=== PATIENT | male | born 1950 | race Caucasian/White ===

== ENCOUNTER → 2017-05-07 08:58 | Outpatient (CLI) | payer SELFPAY ==
[2017-05-07 11:15] LABS: Anion Gap 5 (5-15); BUN 15 mg/dL (7-18); BUN/Creat Ratio 10.6 RATIO (10-20); Calcium,Total 8.8 mg/dL (8.5-10.1); Chloride 107 mmol/L (98-107); Cholesterol 200 mg/dL (200); Creatinine, Serum 1.41 mg/dL (0.70-1.30); EST Glomerular Filtration Rate 54 mL/min (>60); Est Glom Filt Rate - Afr Amer 65 mL/min (>60); Glucose 108 mg/dL (74-106); High Density Lipoprotein 46 mg/dL; Potassium 5.1 mmol/L (3.5-5.1); Sodium Level 141 mmol/L (136-145); Triglycerides 143 mg/dL; Very Low Density Lipoprotein 29 mg/dL (5-40)
[2017-05-07 12:10] LABS: Hemoglobin A1c 6.4 % (4.2-6.3)
== END ==
PROVIDERS: Family Provider Family Medicine; PCP Family Medicine; Visit Provider Family Medicine
DX: I10 Essential (primary) hypertension (principal); R73.09 Other abnormal glucose; E78.00 Pure hypercholesterolemia, unspecified
CPT/HCPCS: 36415; 80048; 80061; 83036

== ENCOUNTER → 2017-11-12 08:38 | Outpatient (CLI) | payer MEDICARE, OTHER, SELFPAY ==
[2017-11-12 10:39] LABS: Anion Gap 11 (5-15); BUN 18 mg/dL (7-18); BUN/Creat Ratio 12.2 RATIO (10-20); Chloride 103 mmol/L (98-107); Creatinine, Serum 1.47 mg/dL (0.70-1.30); EST Glomerular Filtration Rate 51 mL/min (>60); Est Glom Filt Rate - Afr Amer 62 mL/min (>60); Glucose 109 mg/dL (74-106); Potassium 5.4 mmol/L (3.5-5.1); Sodium Level 143 mmol/L (136-145)
== END ==
PROVIDERS: Family Provider Family Medicine; PCP Family Medicine; Visit Provider Family Medicine
DX: I10 Essential (primary) hypertension (principal); R73.03 Prediabetes
CPT/HCPCS: 36415; 80048; 83036

== ENCOUNTER → 2018-11-08 08:48 | Outpatient (CLI) | payer MEDICARE, OTHER, SELFPAY ==
[2017-02-11 21:28] VITALS: BMI 46.0
[2018-11-08 10:48] LABS: Absolute Lymphocyte Count 1.05 X10^3/uL (0.83-4.51); Absolute Neutrophil Count 4.5 X10^3/uL (2.0-7.7); Basophil# 0.03 X10^3/uL; Basophil% 0.4 % (0-1); Eosinophil# 0.34 X10^3/uL; Hematocrit 44.4 % (40-54); Hemoglobin 13.9 g/dL (13.0-16.5); Lymphocyte # 1.05 X10^3/ul (4.0); Lymphocyte % 15.4 % (19-41); Mean Corp Hgb Conc 31.3 g/dL (32-36); Mean Corpuscular Hgb 30.2 pg (27.0-32.0); Mean Corpuscular Volume 96.3 fL (80-94); Mean Platelet Vol. 12.1 fl (6.2-12.0); Monocyte# 0.93 X10^3/uL; Monocyte% 13.6 % (0-10); NRBC Flagged by Analyzer 0 % (0-5); Neutrophil # 4.47 X10^3/uL (2.7-7.7); Neutrophil % 65.3 % (47-70); Platelet Count 203 K/mm3 (150-450); RBC Distribution Width SD 49.3 fl (35.1-43.9); Red Blood Count 4.61 M/mm3 (4.6-6.2); White Blood Count 6.8 K/mm3 (4.4-11.0)
[2018-11-08 11:35] LABS: Anion Gap 8 (5-15); BUN 20 mg/dL (7-18); BUN/Creat Ratio 13.2 RATIO (10-20); Calcium,Total 9.1 mg/dL (8.5-10.1); Chloride 108 mmol/L (98-107); Cholesterol 200 mg/dL (200); Creatinine, Serum 1.51 mg/dL (0.70-1.30); EST Glomerular Filtration Rate 49 mL/min (>60); Est Glom Filt Rate - Afr Amer 60 mL/min (>60); Glucose 110 mg/dL (74-106); High Density Lipoprotein 43 mg/dL; PSA,Total - Annual Screen 1.36 ng/mL (0.00-4.00); Potassium 4.8 mmol/L (3.5-5.1); Sodium Level 141 mmol/L (136-145); Triglycerides 214 mg/dL; Very Low Density Lipoprotein 43 mg/dL (5-40)
== END ==
PROVIDERS: Family Provider Family Medicine; PCP Family Medicine; Visit Provider Family Medicine
DX: I12.9 Hypertensive chronic kidney disease with stage 1 through stage 4 chronic kidney disease, or unspecified chronic kidney disease (principal); N18.2 Chronic kidney disease, stage 2 (mild); R73.03 Prediabetes; E78.00 Pure hypercholesterolemia, unspecified; Z12.5 Encounter for screening for malignant neoplasm of prostate
CPT/HCPCS: 36415; 80048; 80061; 83036; 84153; 85025; G0103

== ENCOUNTER → 2019-02-03 06:28 | Outpatient (CLI) | payer MEDICARE, OTHER, SELFPAY ==
--- NOTE | 2019-02-03 06:37 | CT_ITS ---
STUDY: CT SOFT TISSUE NECK WITH CONTRAST REASON FOR EXAM: Male, 68 years old. One-month history of a left submandibular mass. RADIATION DOSAGE (If Supplied By Facility): CTDIvol = ( 24.27 ) mGy, DLP = ( 648.30 ) mGycm TECHNIQUE: The patient was scanned in a multi-detector CT scanner. High resolution transaxial imaging was performed following intravenous administration of IV Isovue 300 75CC. Sagittal and coronal images were reconstructed. Individualized dose optimization techniques were used for this CT. COMPARISON: None. FINDINGS: Normal bilateral parotid glands. Normal bilateral collection supervisor spaces. Normal bilateral parapharyngeal spaces. Normal bilateral carotid spaces. Normal bilateral sublingual and submandibular glands and spaces. Normal visualized nasopharynx. Normal retropharyngeal space. Normal perivertebral space. Normal visualized bilateral faucial tonsils. The visualized tongue, tongue base and oropharynx are normal. There are minimally enlarged lymph nodes of the neck, with preservation of normal roberth architecture, consistent with a reactive lymph hyperplasia. There is no demonstrated solid or cystic mass lesion. There is no abnormal contrast enhancement. Normal epiglottis, bilateral vallecula and hypopharynx. The pre-epiglottic and paraglottic adipose spaces are normal. Normal visualized bilateral piriform sinuses, aryepiglottic folds, vocal cords, and arytenoid-cricoid articulations. Normal subglottic trachea. Mild heterogeneous enlargement of the right lobe of the thyroid. Normal visualized pulmonary apices. Normal visualized paranasal sinuses. There is multilevel degenerative changes of the cervical spine. CT/Soft Tissue Neck WITH Contrast IMPRESSION: Mildly enlarged right lobe of the thyroid gland. Small benign-appearing cervical lymph nodes. No submandibular masses seen. Electronically Signed: Wild Wilson, at 14:23 EST , Service support ,
[2019-02-03 06:50] LABS: CREATININE FINGERSTICK 1.4 mg/dL (0.70-1.30)
== END ==
PROVIDERS: Family Provider Family Medicine; PCP Family Medicine; Referring Provider Otolaryngology Otolaryngology/Facial Plastic Surgery; Visit Provider Otolaryngology Otolaryngology/Facial Plastic Surgery
DX: R22.1 Localized swelling, mass and lump, neck (principal)
CPT/HCPCS: 70491; Q9967

== ENCOUNTER → 2019-05-13 09:57 | Outpatient (CLI) | payer MEDICARE, OTHER, SELFPAY ==
[2017-02-11 21:28] VITALS: BMI 46.0
[2019-05-13 12:42] LABS: ALB/GLOB Ratio 0.8 RATIO (0.9-2.4); AST(SGOT) 15 U/L (15-37); Alanine Aminotransfer ALT/SGPT 16 U/L (16-61); Albumin, Serum 3.3 g/dL (3.2-5.0); Alkaline Phosphatase 102 U/L (45-117); Anion Gap 7 (5-15); BUN 25 mg/dL (7-18); BUN/Creat Ratio 13.4 RATIO (10-20); Chloride 107 mmol/L (98-107); Cholesterol 192 mg/dL (200); Creatinine, Serum 1.86 mg/dL (0.70-1.30); EST Glomerular Filtration Rate 39 mL/min (>60); Est Glom Filt Rate - Afr Amer 47 mL/min (>60); Globulin 4.3 g/dL (2.2-4.2); Glucose 123 mg/dL (74-106); High Density Lipoprotein 42 mg/dL; Protein, Total 7.6 g/dL (6.4-8.2); Sodium Level 140 mmol/L (136-145); Triglycerides 124 mg/dL; Very Low Density Lipoprotein 25 mg/dL (5-40)
== END ==
PROVIDERS: PCP Family Medicine; Referring Provider Family Medicine; Visit Provider Family Medicine
DX: I10 Essential (primary) hypertension (principal); E78.00 Pure hypercholesterolemia, unspecified
CPT/HCPCS: 36415; 80053; 80061

== ENCOUNTER 2019-05-18 20:18 | Inpatient (IN) | payer MEDICARE, OTHER, SELFPAY ==
[2019-05-18 20:22] VITALS: BP 156/73; PULSE 75; RESP 22; TEMP 37.7; O2SAT 96; BMI 48.2
--- NOTE | 2019-05-18 21:27 | EKG12_ITS ---
Test Reason : DYSRYTHMIA Blood Pressure : / mmHG Vent. Rate : 076 BPM Atrial Rate : 076 BPM P-R Int : 206 ms QRS Dur : 086 ms QT Int : 390 ms P-R-T Axes : 099 050 051 degrees QTc Int : 438 ms Normal sinus rhythm Normal ECG Confirmed by EDUARDO LENZ, HERMAN ([id number]), newspaper managing editor KHANH HOBBS ([id number]) on 05/22/2019 9:06:39 AM Referred By: BUCKY Confirmed By:HERMAN CLARK MD
--- NOTE | 2019-05-18 21:36 | RAD_ITS ---
STUDY: X-RAY CHEST REASON FOR EXAM: Male, 68 years old. Cough sob chills and body aches TECHNIQUE: Single frontal view of the chest. COMPARISON: None. FINDINGS: Cardiac silhouette unremarkable. Pulmonary vascularity unremarkable. Aorta unremarkable. No focal airspace opacities. No pleural effusions. Upper abdomen unremarkable. Osseous structures intact. No pneumothorax. RAD/Chest 1 View (Portable) IMPRESSION: No acute cardiopulmonary findings Electronically Signed: Madan Riley, at 22:34 EDT Tel , Service support ,
[2019-05-18 21:37] VITALS: TEMP 38.3
[2019-05-18 21:40] LABS: Absolute Lymphocyte Count 0.65 X10^3/uL (0.83-4.51); Absolute Neutrophil Count 6.9 X10^3/uL (2.0-7.7); Basophil# 0.02 X10^3/uL; Basophil% 0.3 % (0-1); Eosinophils% 2.5 % (0-5); Hematocrit 43.1 % (40-54); Hemoglobin 13.6 g/dL (13.0-16.5); Lymphocyte # 0.65 X10^3/ul (4.0); Lymphocyte % 8.2 % (19-41); Mean Corp Hgb Conc 31.6 g/dL (32-36); Mean Corpuscular Hgb 29.2 pg (27.0-32.0); Mean Corpuscular Volume 92.5 fL (80-94); Mean Platelet Vol. 12.2 fl (6.2-12.0); Monocyte# 0.14 X10^3/uL; Monocyte% 1.8 % (0-10); NRBC Flagged by Analyzer 0 % (0-5); Neutrophil # 6.85 X10^3/uL (2.7-7.7); Neutrophil % 86.9 % (47-70); Platelet Count 199 K/mm3 (150-450); RBC Distribution Width CV 14.3 % (11.6-14.6); RBC Distribution Width SD 47.7 fl (35.1-43.9); Red Blood Count 4.66 M/mm3 (4.6-6.2); White Blood Count 7.9 K/mm3 (4.4-11.0)
[2019-05-18] MEDS: 0.9% Normal Saline 1,000 ML 999 ML IV (21:46)
[2019-05-18] MEDS: Acetaminophen 500 MG Tablet 1000 MG PO (21:47)
[2019-05-18 21:53] VITALS: BP 110/44; PULSE 72; RESP 22; TEMP 38.3; O2SAT 96
[2019-05-18 21:57] LABS: ALB/GLOB Ratio 0.7 RATIO (0.9-2.4); AST(SGOT) 35 U/L (15-37); Alanine Aminotransfer ALT/SGPT 16 U/L (16-61); Albumin, Serum 3.3 g/dL (3.2-5.0); Alkaline Phosphatase 106 U/L (45-117); Anion Gap 8 (5-15); BUN 21 mg/dL (7-18); BUN/Creat Ratio 12.5 RATIO (10-20); Chloride 108 mmol/L (98-107); Creatinine, Serum 1.68 mg/dL (0.70-1.30); EST Glomerular Filtration Rate 44 mL/min (>60); Est Glom Filt Rate - Afr Amer 53 mL/min (>60); Estimated Creatinine Clearance 43.25 ml/min; Globulin 4.5 g/dL (2.2-4.2); Glucose 110 mg/dL (74-106); Potassium 4.7 mmol/L (3.5-5.1); Protein, Total 7.8 g/dL (6.4-8.2); Sodium Level 140 mmol/L (136-145)
[2019-05-18 22:05] VITALS: O2SAT 95
[2019-05-18 22:27] LABS: International Normalized Ratio 1.1; Prothrombin Time (Protime)PT. 14.4 SECONDS (11.7-14.9)
[2019-05-18 22:28] LABS: Partial Thromboplast Time 26.7 Seconds (24.1-36.2)
[2019-05-18 22:29] LABS: Lactic Acid 2.9 mmol/L (0.4-1.9)
[2019-05-18 23:07] VITALS: BP 154/59; PULSE 71; RESP 24; O2SAT 96
[2019-05-18 23:11] LABS: Mucous, Urine 0 SEEN /hpf (<or=2+)
[2019-05-18 23:13] LABS: Color, Urine Yellow (Yellow); Glucose, Dipstick Normal (Normal); Ketone-Dipstick Negative (Negative); Leukocyte Esterase-Dipstick 500 /ul (Negative); Nitrite-Dipstick Negative (Negative); Occult Blood-Urine 10 /ul (Negative); Protein-Dipstick Negative (Negative); Specific Gravity, Urine 1.015 (1.002-1.030); Urine Bilirubin Dipstick Negative (Negative); Urine Clarity Clear (Clear); Urine Urobilinogen Normal (Normal)
--- NOTE | 2019-05-18 23:19 | PCM.HP.STD ---
Problem List (1) Severe sepsis Status: Acute (2) Viral syndrome Status: Acute (3) Anxiety and depression Status: Chronic (4) CKD (chronic kidney disease), stage III Status: Chronic (5) GERD (gastroesophageal reflux disease) Status: Chronic Qualifiers: Esophagitis presence: esophagitis presence not specified Qualified Code(s): K21.9 - Gastro-esophageal reflux disease without esophagitis (6) Obstructive sleep apnea Status: Chronic (7) Morbid obesity Status: Chronic (8) Hypertension Status: Chronic Qualifiers: Hypertension type: essential hypertension Qualified Code(s): I10 - Essential (primary) hypertension History of Present Illness Date of Admission: 05/18/19 Chief Complaint: Chills, dyspnea, cough, arthralgia, nausea The patient is a 68 y/o M w/ PMHx: CKD stage III, Anxiety and Depression, GERD, HTN, BPH, Morbid Obesity, Former Tobacco use who presents to the [facility] ED on 05/18/19 with history of ongoing worsening fatigue, malaise, mildly productive cough with dyspnea, worse with exertion with arthralgias, myalgias as well as nausea with poor oral intake over the last 2 to 3 days with onset chills descriptive of rigors prior to ED presentation. Patient denies any recent market travel or contacts with patients who have been ill. His does have asthma and notes that she recently had some mild dyspnea but she had run out of her medications. work-up in the ED included T101, heart rate 75, BP 156/73, respiratory rate 24, 96% on room air, CBC with WC 7.9, hemoglobin 13.6, platelet 199 with mild left shift although not market, unremarkable coags, CMP with chloride 108, BUN/creatinine 21/1.68, glucose 110, lactic acid 2.9, troponin less than 0.015, urinalysis with mildly elevated specific gravity 1.015, occult blood 10, negative nitrite, leukocyte esterase 500, pending WBC, RBC, squamous epithelial cells, urine bacteria, chest x-ray with no acute cardiopulmonary findings, negative but influenza panel with pending respiratory viral panel, blood culture x2 pending per ED, urine culture pending per ED. in the ED patient administered normal saline, Tylenol therapy. Past Medical History Past Medical History (Chronic Problems): Chronic Problems Anxiety and depression (Chronic) CKD (chronic kidney disease), stage III (Chronic) GERD (gastroesophageal reflux disease) (Chronic) Obstructive sleep apnea (Chronic) Morbid obesity (Chronic) Depression (Chronic) Hypertension (Chronic) Allergies bee venom protein (honey bee) Allergy (Verified 05/18/19 20:22) Hives spider venom Adverse Reaction (Verified 05/18/19 20:22) Other Home Medications: Ambulatory Orders Medication Instructions Recorded Citalopram [Celexa] 20 mg PO DAILY 09/21/14 Cod Liver Oil 300 mg PO BID 09/21/14 Metoprolol Tartrate [Lopressor 50 mg PO BID 09/21/14 (beta kiki)] Multivitamins,Therapeutic 1 tablet PO DAILY 09/21/14 [Multivitamin] Aspirin [Aspirin EC] 81 mg PO DAILY 12/24/16 Amoxicillin 500 mg PO X1 PRN 02/11/17 Esomeprazole Mag Trihydrate 20 mg PO DAILY 05/18/19 [Nexium] Tamsulosin HCl 0.4 mg PO DAILY 05/18/19 Surgical History: total knee arthroplasty, - - Right total knee replacement, follow-up intervention following knee infection postoperatively, umbilical and bilateral inguinal hernia repairs. Psychiatric History: Anxiety, Depression Lives: Spouse/ Significant Other Smoking Status: Former smoker - Patient quit cigarette tobacco usage in 1985 with prior to this approximately 2 pack/day since he was about 20 years old. Tobacco Use: Non-smoker Alcohol: None Drugs: None - *Family History Maternal History Items: Hypertension Paternal History Items: Diabetes, Hypertension Review of Systems Constitutional: Reports: Anorexia, Chills, Fever, Malaise, Weakness, Fatigue. Denies: Weight Change HEENT: Denies: Head Aches, Sinus Congestion, Sinus Drainage Cardiovascular: Denies: Chest Pain, Palpitations Respiratory: Reports: Cough, Shortness of Breath, Shortness of breath at rest, Shortness of breath upon exertion. Denies: Sputum production, Wheezing Gastrointestinal: Reports: Nausea. Denies: Abdominal Pain, Vomiting Genitourinary: Denies: Dysuria Musculoskeletal: Reports: Joint Pain, Muscle pain. Denies: Joint Tenderness Skin: Denies: Rash, Wounds Neurological: Denies: Numbness, Tingling, Focal weakness Psychiatric: Reports: Anxiety, Depression. Denies: Homicidal Ideations, Suicidal Ideations Hematologic/ Lymphatic: Denies: Easy Bruising, Easy Bleeding VTE Information - Inpt Only VTE Present on Admission: No VTE Mechan Device Prophylaxis: SCD's VTE Pharm Prophylaxis ordered?: Yes Patient Problems: Active and Suspected Problems Viral syndrome (Acute) Severe sepsis (Acute) Subjective: Seated upright in ED bed, fatigued and ill-appearing, no acute distress. Objective: Physical Examination: General: awake, alert, oriented x 3 and cooperative, seated upright in the ED bed, fatigued and ill-appearing, no obvious respiratory distress currently. Skin: normal color, turgor, no icterus, cyanosis. HEENT: AT/NC, EOMI, PERRLA, dry MM, no carotid bruits or JVD noted; however, thickened neck makes examination difficult. Lungs: Diminished breath sounds bilaterally, greater bases, decreased effort, no rales, ronchi or wheezing. Heart: Regular rate and rhythm; no gallop, rub audible. Abdomen: soft, morbidly obese, NTTP, ND, normal BS, unable to discern HSM secondary to habitus. Extremities: no cyanosis, clubbing, bilateral ankle not markedly pitting edema. Neurological: patient awake, alert although fatigued, oriented x 3; cognitive function appears baseline intact; pupils equally reactive to light and accomodation; cranial nerves II-XII grossly normal, moving all 4 extremities, no focal deficits, strength moderately to severely globally Ambika secondary to acute presentation. Psychiatric: affect appears fatigued, ill-appearing, no acute evidence of depressive or anxiety feelings. - Physical Exam Vitals/I&O's: Vital Signs Temp Pulse Resp BP Pulse Ox 101 F H 71 24 H 154/59 H 96 05/18/19 21:37 05/18/19 23:07 05/18/19 23:07 05/18/19 23:07 05/18/19 23:07 Oxygen Delivery Method Room Air Weight: 326 lb 8.073 oz Body Mass Index (BMI) 48.2 Microbiology Past 72 Hours 05/18/19 21:40 Mucosa - Nasopharyngeal Influenza Types A,B Direct FA (KATIE) - Final Laboratory Results 05/18/19 20:10: Sodium 140, Potassium 4.7, Chloride 108 H, Carbon Dioxide 24.0, Anion Gap 8, BUN 21 H, Creatinine 1.68 H, Estim Creat Clear Calc 43.25, Est GFR (MDRD) Af Amer 53 L, Est GFR (MDRD) Non-Af 44 L, BUN/Creatinine Ratio 12.5, Glucose 110 H, Calcium 9.0, Total Bilirubin 0.30, AST 35, ALT 16, Alkaline Phosphatase 106, Troponin I < 0.015, Total Protein 7.8, Albumin 3.3, Globulin 4.5 H, Albumin/Globulin Ratio 0.7 L 05/18/19 20:10: WBC 7.9, RBC 4.66, Hgb 13.6, Hct 43.1, MCV 92.5, MCH 29.2, MCHC 31.6 L, RDW Std Deviation 47.7 H, RDW Coeff of Abdiel 14.3, Plt Count 199, MPV 12.2 H, Immature Gran % (Auto) 0.300, Neut % (Auto) 86.9 H, Lymph % (Auto) 8.2 L, [place] % (Auto) 1.8, Eos % (Auto) 2.5, Baso % (Auto) 0.3, Absolute Neuts (auto) 6.9, Absolute Lymphs (auto) 0.65 L, Nucleated RBC % 0 05/18/19 20:10: PT Cancelled, INR Cancelled, APTT Cancelled 05/18/19 21:53: Lactic Acid 2.9 H* 05/18/19 22:00: PT 14.4, INR 1.1, APTT 26.7 05/18/19 23:00: Urine Color Yellow, Urine Clarity Clear, Urine pH 6.0, Ur Specific Dille 1.015, Urine Protein Negative, Urine Glucose (UA) Normal, Urine Ketones Negative, Urine Occult Blood 10 H, Urine Nitrite Negative, Urine Bilirubin Negative, Urine Urobilinogen Normal, Ur Leukocyte Esterase 500 H, Urine RBC Pending, Urine WBC Pending, Ur Squamous Epith Cells Pending, Urine Bacteria Pending, Urine Mucus Pending Current Medications Sodium Chloride () 1,000 mls @ 150 mls/hr IV .Q6H40M [facility] Assessment/Plan All Active Problems Viral syndrome (Acute) Severe sepsis (Acute) TEODORO (acute kidney injury) (Acute) Septic joint of right knee joint (Acute) History of total right knee replacement (Acute) The patient is a 68 y/o M w/ PMHx: CKD stage III, Anxiety and Depression, GERD, HTN, BPH, Morbid Obesity, Former Tobacco use who presents to the [facility] ED on 05/18/19 with history of ongoing worsening fatigue, malaise, mildly productive cough with dyspnea, worse with exertion with arthralgias, myalgias as well as nausea with poor oral intake over the last 2 to 3 days with onset chills descriptive of rigors prior to ED presentation. 1. Acute Severe Sepsis secondary to Acute Viral Syndrome: Presentation with T101, respiratory rate 24 with lactic acidosis secondary to acute viral syndrome thus will admit to ICU given technically severe sepsis per facility protocol, maintain on oxygen with wean as tolerated to room air, continue ATC duonebs, PRN albuterol, HOB, IS parameters, maintain on precautions pending respiratory viral panel and if unremarkable would consider COVID-19 testing pending repeat CXR in AM following overnight hydration. ICU physician consulted, pending. 2. Chronic Kidney Disease Stage III: Admission BUN/Cr 25/03.68, baseline renal function 1.4-1.5 appears primarily baseline, most recent 05/13/2019 21.86, repeat BMP in AM. 3. Hypertension: Continue home regimen including metoprolol with hold parameters, PRN hydralazine. 4. Morbid Obesity: Weight loss and lifestyle changes encouraged, nutrition consulted. 5. BPH: We will continue patient on Flomax regimen. 6. Anxiety and depression: We will continue patient home Celexa regimen. 7. GERD: We will continue patient home PPI. 8. LILI: We will maintain on home CPAP nightly. 9. DVT prophylaxis: SCDs, Lovenox renally dosed. Inpatient E&M: 60540 Init Hosp L3
[2019-05-18 23:30] LABS: Bacteria 1+ /hpf (None Seen); Red Blood Cells-Urine 10-25 SEEN /hpf (0-5); Squamous Epithelial Cells - UA 0-5 SEEN /hpf (0-5); Triple Phosphate Crystals Ur RARE /hpf (<or=1+); White Blood Cells 10-25 SEEN /hpf (0-5)
[2019-05-18 23:42] VITALS: BP 122/61; PULSE 75; RESP 24; TEMP 37.9; O2SAT 96
[2019-05-18] MEDS: 0.9% Normal Saline 1,000 ML 150 ML IV (23:43)
--- NOTE | 2019-05-18 23:45 | ED.VIS.GEN ---
History of Present Illness Chief Complaint: General Illness Informant: Patient, Family Narrative: Patient states that 10 minutes before arriving the emergency department he got a sudden onset of chills. He states that it was 20 times worse in any chills he is ever experienced before. He took nothing I did not think to come to the emergency room. He denies any significant rhinorrhea or headache. He notes generalized body aches. He notes a slight cough. Past Medical History - Allergies and Home Meds Allergies/Adverse Reactions: Allergies bee venom protein (honey bee) Allergy (Verified 05/18/19 20:22) Hives spider venom Adverse Reaction (Verified 05/18/19 20:22) Other Primary Care Physician: Ziyad Colon MD [Primary Care Provider] - Surgical History: total knee arthroplasty, - Smoking Status: Former smoker - Family History Maternal Family History: Reports: No pertinent history Paternal Family History: Reports: No pertinent history Review of Systems General: Reports: Chills. Denies: Fever, Sweats Eyes: Denies: Visual changes - bilaterally, Diplopia ENT: Denies: Rhinorrhea, Sore throat Cardiovascular: Denies: Chest pain, Palpitations Respiratory: Reports: Cough. Denies: Dyspnea, Dyspnea on exertion Gastrointestinal: Denies: Abdominal pain, Nausea, Vomiting, Diarrhea, Melena, Hematochezia Genitourinary: Denies: Dysuria, Hematuria, Frequency Musculoskeletal: Denies: Back pain, Extremity Pain Skin: Denies: Rash, Wounds Neurological: Denies: Headache, Weakness, Numbness Physical Exam Vital Signs/Narrative: Vital Signs Temp Pulse Resp BP Pulse Ox 05/18/19 23:42 100.3 F H 75 24 H 122/61 H 96 05/18/19 23:07 71 24 H 154/59 H 96 05/18/19 22:05 95 05/18/19 21:37 101 F H 05/18/19 20:22 99.9 F H 75 22 H 156/73 H 96 Inital Vital Signs reviewed: Yes General: Well nourished, Well developed, No Acute Distress, - - Patient appears to have Rigor's and I take his temperature is 101.8 Head: Normocephalic, Atraumatic Eyes: Perrl, EOMI ENT: Moist mucous membranes, No rhinorrhea Neck: Supple, Nontender Cardiovascular: Regular rate, Regular rhythm, No murmurs Respiratory: No distress, CTA bilaterally, Chest nontender Abdomen: Soft, Nontender, Nondistended, Normal bowel sounds Back: Nontender, Normal Inspection Extremities: Nontender, No edema Skin: Normal color, No rash Neurological: Alert, Oriented x3, Cranial nerves II-XII grossly intact, Normal Strength, Normal Sensation Psychological: Normal affect, Normal Mood Diagnostic/Tx/Re-eval - Medical Decision Making Patient received antipyretics and IV fluids. His lactic acid is elevated 2.9. Creatinine is 1.68 which is near his baseline. Chest x-ray is negative and his flu swab was negative. Appears to be a viral syndrome. Plan will be admission for further care. ED Disposition - Plan for ED Patient: Disposition: Acute Care Hospital [facility] Diagnosis: Viral syndrome, Severe sepsis Referrals: Ziyad Colon MD [Primary Care Provider] -
[2019-05-19] VITALS (45 sets, daily range): BP systolic 103–200; BP diastolic 44–107; PULSE 53–108; RESP 12–33; TEMP 36.6–40.5; O2SAT 93–100; BMI 47.7
[2019-05-19] MEDS: 0.9% Normal Saline 1,000 ML 125 ML IV ×3 (00:55→18:21)
[2019-05-19 01:23] LABS: Magnesium 1.9 mg/dL (1.6-2.6)
[2019-05-19 01:59] LABS: Reflex Lactate? Y
[2019-05-19] MEDS: Ipratropium/Albuterol Sulfate 3 ML AMPUL.NEB INHALATION ×5 (02:22→18:56)
[2019-05-19 03:03] LABS: Lactic Acid 2.6 mmol/L (0.4-1.9)
[2019-05-19 04:35] LABS: Absolute Lymphocyte Count 0.31 X10^3/uL (0.83-4.51); Absolute Neutrophil Count 14.6 X10^3/uL (2.0-7.7); Basophil# 0.04 X10^3/uL; Basophil% 0.2 % (0-1); Eosinophil# 0.13 X10^3/uL; Eosinophils% 0.8 % (0-5); Hematocrit 38.2 % (40-54); Hemoglobin 12.2 g/dL (13.0-16.5); Lymphocyte # 0.31 X10^3/ul (4.0); Lymphocyte % 1.9 % (19-41); Mean Corp Hgb Conc 31.9 g/dL (32-36); Mean Corpuscular Hgb 29.3 pg (27.0-32.0); Mean Corpuscular Volume 91.8 fL (80-94); Mean Platelet Vol. 10.7 fl (6.2-12.0); Monocyte# 1.14 X10^3/uL; NRBC Flagged by Analyzer 0 % (0-5); Neutrophil # 14.57 X10^3/uL (2.7-7.7); Neutrophil % 89.2 % (47-70); POSITIVE COUNT YES; POSITIVE DIFFERENTIAL YES; POSITIVE MORPHOLOGY YES; Platelet Count 175 K/mm3 (150-450); RBC Distribution Width CV 14.1 % (11.6-14.6); RBC Distribution Width SD 47.4 fl (35.1-43.9); Red Blood Count 4.16 M/mm3 (4.6-6.2); White Blood Count 16.3 K/mm3 (4.4-11.0)
[2019-05-19 04:46] LABS: Differential Indicated SCAN CRITERIA MET
[2019-05-19 04:47] LABS: Anion Gap 8 (5-15); BUN 20 mg/dL (7-18); BUN/Creat Ratio 12.2 RATIO (10-20); Calcium,Total 8.4 mg/dL (8.5-10.1); Chloride 112 mmol/L (98-107); Creatinine, Serum 1.64 mg/dL (0.70-1.30); EST Glomerular Filtration Rate 45 mL/min (>60); Est Glom Filt Rate - Afr Amer 54 mL/min (>60); Estimated Creatinine Clearance 44.31 ml/min; Glucose 166 mg/dL (74-106); Potassium 3.9 mmol/L (3.5-5.1); Sodium Level 142 mmol/L (136-145)
[2019-05-19 05:09] LABS: Differential Comment SCANNED; Platelet Estimate ADEQUATE (ADEQ)
--- NOTE | 2019-05-19 05:10 | RAD_ITS ---
HISTORY: SOB EXAMINATION/TECHNIQUE: XR Chest 1 View: Portable COMPARISON: 05/18/2019 FINDINGS: Cardiac telemetry leads in place. No significant change. Shallow inspiration. Normal heart size. No focal infiltrate. No vascular congestion or pleural effusion. No pneumothorax. RAD/Chest 1 View (Portable) IMPRESSION: No acute cardiopulmonary disease. No significant interval change. at 0657 Reported and signed by: Hernán Villalba MD Electronically Signed: Hernán Villalba, at 6:56 EDT Tel , Service support ,
--- NOTE | 2019-05-19 05:12 | ECHOCS_ITS ---
Reason For Study: DYSPNEA Procedure This was a 2D Doppler, Color Flow transthoracic echocardiogram. The study was technically difficult. Contrast injection was performed. Exam performed portable in ICU/CCU. Left Ventricle Normal LV size. Left ventricular systolic function is normal. The estimated ejection fraction is 65 %. Stage 2 diastolic dysfunction. No regional wall motion abnormalities noted. Right Ventricle Normal RV size. Normal systolic function. Atria The left atrium is moderately enlarged. Normal right atrium. Mitral Valve Normal mitral valve. Tricuspid Valve Normal tricuspid valve. Aortic Valve The aortic valve is not well visualized. Pulmonic Valve The pulmonic valve is not well visualized. Great Vessels Normal aortic root. The pulmonary artery is normal size. Normal inferior vena cava. Pericardium/Pleural No pericardial effusion. Medication Diluted definity 4.0ml given slow IV push to enhance endocardial definition. MMode/2D Measurements & Calculations LVIDd: 5.4 cm IVSd: 0.97 cm Ao root diam: 4.1 cm LVIDs: 3.9 cm LVPWd: 0.93 cm RVDd: 4.6 cm FS: 26.9 % LAV(MOD-bp): 93.4 ml LA A4 area: 30.9 cm2 LA dimension(2D): 4.7 cm LAV(MOD-bp) Indexed: 36.9 ml/m2 LAV(MOD-sp2): 76.1 ml LAV(MOD-sp4): 108.6 ml RA A4 area: 18.6 cm2 Time Measurements MV dec time: 0.29 sec Doppler Measurements & Calculations MV E max rell: 99.7 cm/sec Lat Peak E' Rell: 11.2 cm/sec Med Peak E' Rell: 6.8 cm/sec MV A max rell: 79.3 cm/sec E/E' lat: 8.9 E/E' med: 14.7 MV E/A: 1.3 Ao V2 max: 181.2 cm/sec LV V1 max: 136.5 cm/sec TR max rell: 305.4 cm/sec Ao max P.1 mmHg LV V1 max P.5 mmHg TR max P.4 mmHg Interpretation Summary Normal LV size. Left ventricular systolic function is normal. The estimated ejection fraction is 65 %. Stage 2 diastolic dysfunction. Contrast injection was performed. Ordering Physician: Cynthia Brunson Referring Physician: REN CONTRERAS Performed By: Heather Hope, MIKEY, RVT
--- NOTE | 2019-05-19 05:13 | PCM.HOSP.N ---
Hospitalist Note Patient with perioral cyanosis, rigors per staff with increased dyspnea. BIPAP placed, ABG requested, CXR requested, temp chong placed with T 103. Diminished BS diffusely, > bases, no marked rales or rhonchi nor wheezing. Respiratory panel negative. Will request COVID-19 testing concurrently given the severity of his presentation. CBC AM w/ WBC elevation with L shift. Will prophylactically add IV vanc and zosyn. Patient improving on the BIPAP. Will place cooling blanket.
[2019-05-19 05:26] LABS: Allen Test POS; Base Excess -8 mmol/L (-2 to +2); Bicarbonate 17.7 mmol/L (22-26); Blood Gas Specimen Type ART; EPAP 12; FI02 21; PO2 73 mmHG (75-100); SITE R Radial; SO2 93 % (95-99); Time Given 510; Total Carbon Dioxide 19 mmol/L; pCO2 34.6 mmHg (35-45); pH 7.32 (7.35-7.45)
[2019-05-19 06:13] LABS: Lactic Acid 4.8 mmol/L (0.4-1.9)
--- NOTE | 2019-05-19 06:21 | PCM.RX.CS ---
Consult Pharmacy has been consulted to manage selected antiobiotic: Vancomycin Type of Consult: New start Suspected Infection: Sepsis Labs: Sodium 142 mmol/L (136-145) 05/19/19 04:00 Potassium 3.9 mmol/L (3.5-5.1) 05/19/19 04:00 Chloride 112 mmol/L (98-107) H 05/19/19 04:00 Carbon Dioxide 22.0 mmol/L (21.0-32.0) 05/19/19 04:00 Anion Gap 8 (5-15) 05/19/19 04:00 BUN 20 mg/dL (7-18) H 05/19/19 04:00 Creatinine 1.64 mg/dL (0.70-1.30) H 05/19/19 04:00 Est GFR (MDRD) Af Amer 54 mL/min (>60) L 05/19/19 04:00 Est GFR (MDRD) Non-Af 45 mL/min (>60) L 05/19/19 04:00 BUN/Creatinine Ratio 12.2 RATIO (10-20) 05/19/19 04:00 Glucose 166 mg/dL (74-106) H 05/19/19 04:00 Microbiology: Microbiology 05/18/19 23:21 Mucosa - Nasopharyngeal Respiratory Panel (PCR) - Preliminary 05/18/19 21:40 Mucosa - Nasopharyngeal Influenza Types A,B Direct FA (KATIE) - Final Weight used for dosin.6 kg Estimated Creatinine Clearance: 63.3 Goal Trough: 15-20 mcg/mL Pharmacy Plan for Drug Dosing: Pharmacy Service will continue to monitor and adjust dosing as required. Medications Vancomycin HCl 1,500 mg/ (Sodium Chloride) 530 mls @ 250 mls/hr IV Q12H DANIEL Vancomycin HCl 2,000 mg/ (Sodium Chloride) 540 mls @ 250 mls/hr IV X1 ONE Stop: 05/19/19 07:39 Last Admin: 05/19/19 05:58 Dose: 250 mls/hr Documented by: Follow-Up Labs: Trough Vancomycin Labs to be done on [date and time ordered]: 05/19 @ [id number]
--- NOTE | 2019-05-19 08:48 | PCM.CON.CC ---
Problem List (1) Viral syndrome Status: Acute (2) Severe sepsis Status: Acute (3) Anxiety and depression Status: Chronic (4) CKD (chronic kidney disease), stage III Status: Chronic (5) GERD (gastroesophageal reflux disease) Status: Chronic Qualifiers: Esophagitis presence: esophagitis presence not specified Qualified Code(s): K21.9 - Gastro-esophageal reflux disease without esophagitis (6) Obstructive sleep apnea Status: Chronic (7) Morbid obesity Status: Chronic (8) Depression Status: Chronic (9) Hypertension Status: Chronic Qualifiers: Hypertension type: essential hypertension Qualified Code(s): I10 - Essential (primary) hypertension (10) TEODORO (acute kidney injury) Status: Acute Reason for Consult Date of Consultation: 05/19/19 Reason for Consultation: Severe sepsis History of Present Illness: The patient is a 68 year old M, with past medical history listed below, who presented to [facility] on 05/18/2019 secondary to sudden onset of chills. Patient stated that approximately 4 hours prior to presentation he started to develop chills that were worse than ever experienced before. Patient did not report any significant rhinorrhea or headache. Patient does have a slight dry cough. Patient has reported generalized body aches. Patient does have a history of a septic joint in the past and states this is not like that. Patient denies any history of previous respiratory issues. Patient was a former smoker, but is never had pulmonary function testing. Patient reports he is retired. Patient has not reported any significant travel history on vacation or 2 conferences. Patient did not document any fevers at home. In the ER, patient was noted to have rigors and his temperature was 101.8 ?F. Patient was answering questions appropriately. Patient was given Tylenol and IV fluids. Lactate was elevated at 2.9. Patient does have chronic kidney disease and creatinine was 1.68, which is close to his baseline. Chest x-ray was negative and viral panel was also negative. While in the intensive care unit, patient was noted to be warmer than his temperature was reporting. Patient had a temperature Adams placed and was noted to have a temperature as high as 105 ?F. Patient had significant respiratory distress and was placed on BiPAP therapy with some improvement. Patient reportedly stated that this is what brought me in. When patient's fever is improved, he is able to go back to room air, but is only tolerating mild breaks at this time. Patient was placed in negative pressure isolation and full barrier precautions were initiated. Patient was given ice packs to bring down his pressure. Patient was not reported to have any nuchal rigidity or headache. No seizure activity was reported. Patient reports he has no respiratory history, but his does have asthma. Patient is unaware of any sick contacts. Patient denies any dysuria or painful joints. No lower extremity edema has been reported. Patient denied any trauma. Patient does have a history of obstructive sleep apnea and uses CPAP at baseline. Patient is unaware of his normal pressures, but does report that he is compliant with therapy. Review of systems otherwise negative from a constitutional, HEENT, respiratory, cardiovascular, GI, genitourinary, musculoskeletal, skin, neurologic, psychiatric and hematologic system unless stated above. Past Medical History Past Medical History (Chronic Problems): Chronic Problems Anxiety and depression (Chronic) CKD (chronic kidney disease), stage III (Chronic) GERD (gastroesophageal reflux disease) (Chronic) Obstructive sleep apnea (Chronic) Morbid obesity (Chronic) Depression (Chronic) Hypertension (Chronic) Allergies bee venom protein (honey bee) Allergy (Verified 05/18/19 20:22) Hives spider venom Adverse Reaction (Verified 05/18/19 20:22) Other Home Medications: Ambulatory Orders Medication Instructions Recorded Citalopram [Celexa] 20 mg PO DAILY 09/21/14 Cod Liver Oil 300 mg PO BID 09/21/14 Metoprolol Tartrate [Lopressor 50 mg PO BID 09/21/14 (beta nancy)] Multivitamins,Therapeutic 1 tablet PO DAILY 09/21/14 [Multivitamin] Aspirin [Aspirin EC] 81 mg PO DAILY 12/24/16 Amoxicillin 500 mg PO X1 PRN 02/11/17 Esomeprazole Mag Trihydrate 20 mg PO DAILY 05/18/19 [Nexium] Tamsulosin HCl 0.4 mg PO DAILY 05/18/19 Surgical History: total knee arthroplasty, - - Right total knee replacement, follow-up intervention following knee infection postoperatively, umbilical and bilateral inguinal hernia repairs. Psychiatric History: Anxiety, Depression Lives: Spouse/ Significant Other Smoking Status: Former smoker - Patient quit cigarette tobacco usage in 1985 with prior to this approximately 2 pack/day since he was about 20 years old. Tobacco Use: Non-smoker Alcohol: None Drugs: None - *Family History Maternal History Items: Hypertension Paternal History Items: Diabetes, Hypertension Review of Systems Comment: See HPI Patient Problems: Active and Suspected Problems Viral syndrome (Acute) Severe sepsis (Acute) Objective: Chest x-ray was personally reviewed and shows no acute infiltrate. Patient has never had an echocardiogram or pulmonary function test. - Physical Exam Vitals/I&O's: Vital Signs Temp Pulse Resp BP Pulse Ox 38.3 C H 71 22 H 103/45 L 94 05/19/19 08:00 05/19/19 08:00 05/19/19 08:00 05/19/19 08:00 05/19/19 08:00 Oxygen Delivery Method Bi-pap Weight: 146.6 kg Body Mass Index (BMI) 47.7 Intake and Output for Last 24 Hours 05/17/19 05/18/19 05/19/19 23:59 23:59 23:59 Intake Total 1000 / 1000 931.25 / 931.25 Output Total 400 / 400 Balance 1000 / 1000 531.25 / 531.25 General: Alert, Oriented x3, Cooperative, - - Mild to moderate conversational dyspnea off of BiPAP. Morbidly obese. HEENT: Atraumatic, PERRLA, EOMI, Normocephalic, - - No scleral icterus or injection noted Oral: Moist Mucosa, No Gingival or Mucosal Lesions/ Ulcerations Neck: Supple, No JVD, No Nodes, Trachea Midline, - - Difficult to assess JVD secondary to body habitus Lungs: No rhonchi, No wheeze, No rales, Diminished, - - Fair effort Cardiovascular: Regular rate, Regular Rhythm, Normal S1, Normal S2, No murmurs, No rub noted, No Gallop Abdomen: Bowel Sounds Present, Soft, Non Tender, Non-Distended, Obese Extremities: No clubbing, No cyanosis, Edema - Trace to 1+ Skin: No rashes, No breakdown Musculoskeletal: No Tenderness to Palpation of Joints or Extremities Lymphatic: No Cervical, Supraclavicular, or Inguinal Adenopathy Neurological: Cranial nerves II-XII grossly intact, Neuro grossly intact, Motor Exam 5/5 strength throughout Psych/Mental Status: Alert and oriented to time, place, person, mood and affect Microbiology Past 72 Hours 05/18/19 21:53 Blood Culture (Wb) - Anticubital Right Blood Culture - Preliminary 05/18/19 23:21 Mucosa - Nasopharyngeal Respiratory Panel (PCR) - Final 05/18/19 21:40 Mucosa - Nasopharyngeal Influenza Types A,B Direct FA (KATIE) - Final Laboratory Results 05/18/19 20:10: Sodium 140, Potassium 4.7, Chloride 108 H, Carbon Dioxide 24.0, Anion Gap 8, BUN 21 H, Creatinine 1.68 H, Estim Creat Clear Calc 43.25, Est GFR (MDRD) Af Amer 53 L, Est GFR (MDRD) Non-Af 44 L, BUN/Creatinine Ratio 12.5, Glucose 110 H, Calcium 9.0, Total Bilirubin 0.30, AST 35, ALT 16, Alkaline Phosphatase 106, Troponin I < 0.015, Total Protein 7.8, Albumin 3.3, Globulin 4.5 H, Albumin/Globulin Ratio 0.7 L 05/18/19 20:10: WBC 7.9, RBC 4.66, Hgb 13.6, Hct 43.1, MCV 92.5, MCH 29.2, MCHC 31.6 L, RDW Std Deviation 47.7 H, RDW Coeff of Abdiel 14.3, Plt Count 199, MPV 12.2 H, Immature Gran % (Auto) 0.300, Neut % (Auto) 86.9 H, Lymph % (Auto) 8.2 L, [place] % (Auto) 1.8, Eos % (Auto) 2.5, Baso % (Auto) 0.3, Absolute Neuts (auto) 6.9, Absolute Lymphs (auto) 0.65 L, Nucleated RBC % 0 05/18/19 20:10: PT Cancelled, INR Cancelled, APTT Cancelled 05/18/19 20:10: Magnesium 1.9 05/18/19 21:53: Lactic Acid 2.9 H* 05/18/19 22:00: PT 14.4, INR 1.1, APTT 26.7 05/18/19 23:00: Urine Color Yellow, Urine Clarity Clear, Urine pH 6.0, Ur Specific [place] 1.015, Urine Protein Negative, Urine Glucose (UA) Normal, Urine Ketones Negative, Urine Occult Blood 10 H, Urine Nitrite Negative, Urine Bilirubin Negative, Urine Urobilinogen Normal, Ur Leukocyte Esterase 500 H, Urine RBC 10-25 SEEN, Urine WBC 10-25 SEEN, Ur Squamous Epith Cells 0-5 SEEN, Triple Phos Crystals RARE, Urine Bacteria 1+, Urine Mucus 0 SEEN 05/19/19 02:15: Lactic Acid 2.6 H* 05/19/19 04:00: WBC 16.3 H, RBC 4.16 L, Hgb 12.2 L, Hct 38.2 L, MCV 91.8, MCH 29.3, MCHC 31.9 L, RDW Std Deviation 47.4 H, RDW Coeff of Abdiel 14.1, Plt Count 175, MPV 10.7, Immature Gran % (Auto) 0.900, Neut % (Auto) 89.2 H, Lymph % (Auto) 1.9 L, [place] % (Auto) 7.0, Eos % (Auto) 0.8, Baso % (Auto) 0.2, Absolute Neuts (auto) 14.6 H, Absolute Lymphs (auto) 0.31 L, Nucleated RBC % 0, Differential Comment SCANNED, Platelet Estimate ADEQUATE 05/19/19 04:00: Sodium 142, Potassium 3.9, Chloride 112 H, Carbon Dioxide 22.0, Anion Gap 8, BUN 20 H, Creatinine 1.64 H, Estim Creat Clear Calc 44.31, Est GFR (MDRD) Af Amer 54 L, Est GFR (MDRD) Non-Af 45 L, BUN/Creatinine Ratio 12.2, Glucose 166 H, Calcium 8.4 L 05/19/19 04:00: Troponin I < 0.015 05/19/19 05:18: Specimen Type ART, Sample Site R Radial, pH 7.32 L, Bicarbonate Actual 17.7 L, POC Total CO2 19, Base Excess -8 L, O2 Saturation 93 L, O2 % 21, ABG pCO2 34.6 L, ABG pO2 73 L, Yoandy Test POS, O2 Delivery Device Bi / C PAP, EPAP 12, Blood Gas Notified Whom HOSP , Blood Gas Notified Time 510 05/19/19 05:30: Lactic Acid 4.8 H* Current Medications Albuterol Sulfate (Ventolin Aerosols) 2.5 mg INHALATION Q2H PRN PRN PRN Reason: Dyspnea, wheezing. Albuterol/Ipratropium (Duoneb) 3 ml INHALATION Q4HWA.RT DANIEL Last Admin: 05/19/19 02:22 Dose: 3 ml Documented by: Aspirin (Ecotrin) 81 mg PO DAILY DANIEL Citalopram Hydrobromide (Celexa) 20 mg PO DAILY DANIEL Sodium Chloride () 1,000 mls @ 125 mls/hr IV .Q8H DANIEL Last Infusion: 05/19/19 05:58 Dose: 0 mls/hr Documented by: Sodium Chloride () 250 mls @ 15 mls/hr IV .[id number] PRN PRN Reason: Saline Flush Last Infusion: 05/19/19 06:17 Dose: 0 mls/hr Documented by: Sodium Chloride () 250 mls @ 15 mls/hr IV .[id number] PRN PRN Reason: Additional IVPB Infusion Vancomycin IV Pharmacy to Dose (1 ea/ Sodium Chloride) 500 mls @ 250 mls/hr IV X1 PRN; Protocol PRN Reason: Rx to Dose Piperacillin Sod/Tazobactam (Sod 3.375 gm/ Sodium Chloride) 50 mls @ 12.5 mls/hr IV Q8 DANIEL Last Admin: 05/19/19 06:13 Dose: 12.5 mls/hr Documented by: Vancomycin HCl 1,500 mg/ (Sodium Chloride) 530 mls @ 250 mls/hr IV Q12H DANIEL Metoprolol Tartrate (Lopressor (Beta Nancy)) 50 mg PO BID DANIEL Multivitamins (Multivitamin) 1 tablet PO DAILYCM DANIEL Pantoprazole Sodium (Protonix) 20 mg PO DAILY DANIEL Sodium Chloride () 10 - 40 ml IV UD PRN PRN Reason: SALINE FLUSH Tamsulosin HCl (Flomax) 0.4 mg PO DAILY DANIEL Clinical Impression(s) from Imaging Studies Chest X-Ray 05/18/19 21:36 IMPRESSION: No acute cardiopulmonary findings Electronically Signed: Madan Riley, at 22:34 EDT Tel , Service support , Chest X-Ray 05/19/19 05:10 IMPRESSION: No acute cardiopulmonary disease. No significant interval change. at 0657 Reported and signed by: Hernán Villalba MD Electronically Signed: Hernán Villalba, at 6:56 EDT Tel , Service support , Assessment/Plan Active and Suspected Problems Viral syndrome (Acute) Severe sepsis (Acute) RECOMMENDATIONS: 1. BiPAP rescue as necessary 2. 30 cc/kg bolus if becomes hypotensive 3. Initiate cooling blanket and antipyretic therapy 4. COVID-19 testing sent 5. directed to [facility] access hospital and advised self quarantine IMPRESSIONS: 1. Acute hypoxic respiratory failure/severe sepsis secondary to acute viral syndrome Viral panel was negative. Some concern for COVID-19. Patient did have cyanosis associated with chills, and has responded to BiPAP therapy. Chest x-ray is relatively unimpressive at this time. Patient does not have any nuchal rigidity or other signs or symptoms of meningitis to account for high fevers. Patient is on empiric antibiotics at this time. We will continue with DuoNeb therapy empirically. No steroids at this time. Blood pressures have been trending down and this may be secondary to insensible losses. If patient becomes hypotensive, initiation of sepsis protocol would be appropriate. 2. Chronic kidney disease stage III/hypertension/morbid obesity/BPH/anxiety/depression/GERD/LILI Complicates care, management, recovery and prognosis. May need to discontinue antihypertensive medications pending response to therapy. Patient will be kept on BiPAP therapy given concerns for respiratory compensation, however if home CPAP settings could be found this would be helpful. Oxygenation appears to be okay at this time. Okay to continue with baseline anxiety and depression medications. Addendum 1318: Patient has gram-negative in his urine and 2 blood cultures. This would be consistent with severe sepsis secondary to UTI and what account for patient's high fever. Given lack of consistent respiratory complaints outside of shortness of breath with high fever, will discontinue testing for COVID-19 and airborne precautions. Patient will remain in droplet precautions for now. Continue to monitor hemodynamics. Cannot exclude a need for bolus and pressor therapy. Inpatient E&M: [id number] Init Hosp L3
--- NOTE | 2019-05-19 08:52 | PCM.PN.HOSP ---
Patient Problems: Active and Suspected Problems Viral syndrome (Acute) Severe sepsis (Acute) Subjective: Doing well, breathing although better. There is down to 101, and blood pressure is stable at 126 systolic. Vitals/I&O's: Vital Signs Temp Pulse Resp BP Pulse Ox 101.0 F H 71 22 H 103/45 L 94 05/19/19 08:00 05/19/19 08:00 05/19/19 08:00 05/19/19 08:00 05/19/19 08:00 Oxygen Delivery Method Bi-pap Weight: 323 lb 3.163 oz Body Mass Index (BMI) 47.7 Intake and Output for Last 24 Hours 05/17/19 05/18/19 05/19/19 23:59 23:59 23:59 Intake Total 1000 / 1000 931.25 / 931.25 Output Total 400 / 400 Balance 1000 / 1000 531.25 / 531.25 General: Alert, Oriented x3, Cooperative, No apparent distress HEENT: Atraumatic, PERRLA, EOMI, Normocephalic Oral: Dry Mucosa Neck: Supple, No JVD Lungs: Clear to auscultation, Normal air movement, No rhonchi, No wheeze, No rales, Diminished Cardiovascular: Regular rate, Regular Rhythm, Normal S1, Normal S2, No murmurs Abdomen: Soft, Non Tender, Non-Distended, No Hepato-splenomegaly Extremities: No edema, Capillary Refill Less than 3 Seconds Skin: No rashes, No breakdown Neurological: Neuro grossly intact, Sensory exam intact to light touch and pain Psych/Mental Status: Normal Affect, Appropriate Microbiology Past 72 Hours 05/18/19 21:53 Blood Culture (Wb) - Anticubital Right Blood Culture - Preliminary 05/18/19 23:21 Mucosa - Nasopharyngeal Respiratory Panel (PCR) - Final 05/18/19 21:40 Mucosa - Nasopharyngeal Influenza Types A,B Direct FA (KATIE) - Final Laboratory Results 05/18/19 20:10: Sodium 140, Potassium 4.7, Chloride 108 H, Carbon Dioxide 24.0, Anion Gap 8, BUN 21 H, Creatinine 1.68 H, Estim Creat Clear Calc 43.25, Est GFR (MDRD) Af Amer 53 L, Est GFR (MDRD) Non-Af 44 L, BUN/Creatinine Ratio 12.5, Glucose 110 H, Calcium 9.0, Total Bilirubin 0.30, AST 35, ALT 16, Alkaline Phosphatase 106, Troponin I < 0.015, Total Protein 7.8, Albumin 3.3, Globulin 4.5 H, Albumin/Globulin Ratio 0.7 L 05/18/19 20:10: WBC 7.9, RBC 4.66, Hgb 13.6, Hct 43.1, MCV 92.5, MCH 29.2, MCHC 31.6 L, RDW Std Deviation 47.7 H, RDW Coeff of Abdiel 14.3, Plt Count 199, MPV 12.2 H, Immature Gran % (Auto) 0.300, Neut % (Auto) 86.9 H, Lymph % (Auto) 8.2 L, [place] % (Auto) 1.8, Eos % (Auto) 2.5, Baso % (Auto) 0.3, Absolute Neuts (auto) 6.9, Absolute Lymphs (auto) 0.65 L, Nucleated RBC % 0 05/18/19 20:10: PT Cancelled, INR Cancelled, APTT Cancelled 05/18/19 20:10: Magnesium 1.9 05/18/19 21:53: Lactic Acid 2.9 H* 05/18/19 22:00: PT 14.4, INR 1.1, APTT 26.7 05/18/19 23:00: Urine Color Yellow, Urine Clarity Clear, Urine pH 6.0, Ur Specific [place] 1.015, Urine Protein Negative, Urine Glucose (UA) Normal, Urine Ketones Negative, Urine Occult Blood 10 H, Urine Nitrite Negative, Urine Bilirubin Negative, Urine Urobilinogen Normal, Ur Leukocyte Esterase 500 H, Urine RBC 10-25 SEEN, Urine WBC 10-25 SEEN, Ur Squamous Epith Cells 0-5 SEEN, Triple Phos Crystals RARE, Urine Bacteria 1+, Urine Mucus 0 SEEN 05/19/19 02:15: Lactic Acid 2.6 H* 05/19/19 04:00: WBC 16.3 H, RBC 4.16 L, Hgb 12.2 L, Hct 38.2 L, MCV 91.8, MCH 29.3, MCHC 31.9 L, RDW Std Deviation 47.4 H, RDW Coeff of Abdiel 14.1, Plt Count 175, MPV 10.7, Immature Gran % (Auto) 0.900, Neut % (Auto) 89.2 H, Lymph % (Auto) 1.9 L, [place] % (Auto) 7.0, Eos % (Auto) 0.8, Baso % (Auto) 0.2, Absolute Neuts (auto) 14.6 H, Absolute Lymphs (auto) 0.31 L, Nucleated RBC % 0, Differential Comment SCANNED, Platelet Estimate ADEQUATE 05/19/19 04:00: Sodium 142, Potassium 3.9, Chloride 112 H, Carbon Dioxide 22.0, Anion Gap 8, BUN 20 H, Creatinine 1.64 H, Estim Creat Clear Calc 44.31, Est GFR (MDRD) Af Amer 54 L, Est GFR (MDRD) Non-Af 45 L, BUN/Creatinine Ratio 12.2, Glucose 166 H, Calcium 8.4 L 05/19/19 04:00: Troponin I < 0.015 05/19/19 05:18: Specimen Type ART, Sample Site R Radial, pH 7.32 L, Bicarbonate Actual 17.7 L, POC Total CO2 19, Base Excess -8 L, O2 Saturation 93 L, O2 % 21, ABG pCO2 34.6 L, ABG pO2 73 L, Yoandy Test POS, O2 Delivery Device Bi / C PAP, EPAP 12, Blood Gas Notified Whom HOSP , Blood Gas Notified Time 510 05/19/19 05:30: Lactic Acid 4.8 H* Current Medications Albuterol Sulfate (Ventolin Aerosols) 2.5 mg INHALATION Q2H PRN PRN PRN Reason: Dyspnea, wheezing. Albuterol/Ipratropium (Duoneb) 3 ml INHALATION Q4HWA.RT DANIEL Last Admin: 05/19/19 02:22 Dose: 3 ml Documented by: Aspirin (Ecotrin) 81 mg PO DAILY DANIEL Citalopram Hydrobromide (Celexa) 20 mg PO DAILY DANIEL Sodium Chloride () 1,000 mls @ 125 mls/hr IV .Q8H DANIEL Last Infusion: 05/19/19 05:58 Dose: 0 mls/hr Documented by: Sodium Chloride () 250 mls @ 15 mls/hr IV .[id number] PRN PRN Reason: Saline Flush Last Infusion: 05/19/19 06:17 Dose: 0 mls/hr Documented by: Sodium Chloride () 250 mls @ 15 mls/hr IV .[id number] PRN PRN Reason: Additional IVPB Infusion Vancomycin IV Pharmacy to Dose (1 ea/ Sodium Chloride) 500 mls @ 250 mls/hr IV X1 PRN; Protocol PRN Reason: Rx to Dose Piperacillin Sod/Tazobactam (Sod 3.375 gm/ Sodium Chloride) 50 mls @ 12.5 mls/hr IV Q8 DANIEL Last Admin: 05/19/19 06:13 Dose: 12.5 mls/hr Documented by: Vancomycin HCl 1,500 mg/ (Sodium Chloride) 530 mls @ 250 mls/hr IV Q12H DANIEL Metoprolol Tartrate (Lopressor (Beta Nancy)) 50 mg PO BID DANIEL Multivitamins (Multivitamin) 1 tablet PO DAILYCM DANIEL Pantoprazole Sodium (Protonix) 20 mg PO DAILY DANIEL Sodium Chloride () 10 - 40 ml IV UD PRN PRN Reason: SALINE FLUSH Tamsulosin HCl (Flomax) 0.4 mg PO DAILY DANIEL STROKE Vital Signs/Narrative: Vital Signs Temp Pulse Resp BP Pulse Ox 05/19/19 08:00 101.0 F H 71 22 H 103/45 L 94 05/19/19 07:06 94 05/19/19 07:02 75 20 H 05/19/19 07:00 102.6 F H 72 25 H 126/48 H 94 05/19/19 06:00 104.0 F H 82 30 H 119/45 L 93 05/19/19 05:10 83 28 H 95 05/19/19 05:00 108 H 33 H 200/79 H 93 Medical Necessity - Tobacco Use Smoking Status: Former smoker - Patient quit cigarette tobacco usage in 1985 with prior to this approximately 2 pack/day since he was about 20 years old. Tobacco Use: Non-smoker Assessment/Plan All Active Problems Viral syndrome (Acute) Severe sepsis (Acute) TEODORO (acute kidney injury) (Acute) Septic joint of right knee joint (Acute) History of total right knee replacement (Acute) 1. Severe sepsis secondary to UTI -Coronavirus testing is underway because of his fever and his cough with shortness of breath -He does have a previous significant history of tobacco use where he was smoking 2 packs a day -No severe acute lower respiratory illness, chest x-ray is unremarkable -Urine bacteria 1+ and leukocyte esterases at 500 and he does have an elevated urine white count -He has of his severe sepsis and his lactate of 4.8, he is on Zosyn and vancomycin, will narrow as able -Urine culture is pending, IV fluids at 125 -Echo pending for dyspnea 2. HTN/CKD 3 -Creatinine is at baseline of 1.5-1.6 -We will hold off blood pressure medications in light of his sepsis -Continue with aspirin 3. GERD -Stable -Continue with PPI 4. Anxiety/depression -Stable -Continue with Celexa DVT: Lovenox Inpatient E&M: 88691 Subs Hosp L2
[2019-05-19 09:49] LABS: Reflex Lactate? Y
[2019-05-19] MEDS: Tamsulosin HCl 0.4 MG Capsule PO (09:58)
[2019-05-19] MEDS: Citalopram 20 MG Tablet PO (09:58)
[2019-05-19] MEDS: Pantoprazole Sodium 20 MG Tablet PO (09:58)
[2019-05-19] MEDS: Enoxaparin 40 MG/0.4 ML Syringe SC (09:59)
[2019-05-19] MEDS: Aspirin E.C. 81 MG Tablet PO (09:59)
[2019-05-19] MEDS: Multivitamins,Therapeutic Tablet 1 TABLET PO (09:59)
--- NOTE | 2019-05-19 10:19 | CASEMGMT ---
RN CM Assessment Note Presentation: Severe Sepsis, Acute viral syndrome. Pt is in neg pressure precautionary room. Intro role of CM and purpose of RN CM assessment to patient's via phone. Demographics, PCP and Pharmacy verified. Per , pt had some difficulty getting around at home due to shortness of breath and weight. states he was able to go to up and down basement stairs, but remaining home is on one floor. Pt did not use ambulatory assistive devices, but did use carts when going to grocery store. PCP: Dr. Colon- pt was at office last week for check up Specialists: none at this time. Preferred Pharmacy: [facility] [place] Insurance: [facility] Prescription Benefit: yes LNOK : , Kanwal Montiel Living Arrangements: Lives in one story home with basement. Per , pt was independent in ADL's. Equipment at home is not being used currently, but pt had after knee surgery a few years ago. Transportation: drives and drives DME: walker, cane, raised toilet seat, shower chair, Cpap. No oxygen being used. -if Oxygen is needed on discharge, [facility] will be first choice. List of DME providers locally discussed with over phone. HHC: [facility] past Patient DC goals: Home per DC PLAN: anticipate home. Will need to evaluate activity and oxygen needs prior to dc. PT/OT evaluations are on hold for now. Seamus ALBERTON RN ACM
[2019-05-19 11:23] LABS: Lactic Acid 2.8 mmol/L (0.4-1.9)
[2019-05-19 14:52] LABS: Reflex Lactate? Y
[2019-05-19] MEDS: Metoprolol Tartrate 50 MG Tablet PO (21:51)
[2019-05-19] MEDS: Acetaminophen 325 MG Tablet 650 MG PO (21:52)
[2019-05-20] VITALS (25 sets, daily range): BP systolic 107–157; BP diastolic 47–65; PULSE 46–77; RESP 12–32; TEMP 36.6–37.8; O2SAT 94–100
[2019-05-20] MEDS: 0.9% Normal Saline 1,000 ML 125 ML IV ×3 (01:21→22:47)
[2019-05-20 05:02] LABS: Absolute Lymphocyte Count 0.86 X10^3/uL (0.83-4.51); Absolute Neutrophil Count 8.2 X10^3/uL (2.0-7.7); Basophil# 0.03 X10^3/uL; Basophil% 0.3 % (0-1); Eosinophils% 1.9 % (0-5); Hematocrit 37.9 % (40-54); Hemoglobin 11.9 g/dL (13.0-16.5); Lymphocyte # 0.86 X10^3/ul (4.0); Mean Corp Hgb Conc 31.4 g/dL (32-36); Mean Corpuscular Hgb 29.2 pg (27.0-32.0); Mean Corpuscular Volume 92.9 fL (80-94); Monocyte% 13.9 % (0-10); NRBC Flagged by Analyzer 0 % (0-5); Neutrophil # 8.16 X10^3/uL (2.7-7.7); Neutrophil % 75.4 % (47-70); Platelet Count 135 K/mm3 (150-450); RBC Distribution Width CV 14.8 % (11.6-14.6); RBC Distribution Width SD 50.4 fl (35.1-43.9); Red Blood Count 4.08 M/mm3 (4.6-6.2); White Blood Count 10.8 K/mm3 (4.4-11.0)
[2019-05-20 05:15] LABS: ALB/GLOB Ratio 0.7 RATIO (0.9-2.4); AST(SGOT) 17 U/L (15-37); Alanine Aminotransfer ALT/SGPT 15 U/L (16-61); Albumin, Serum 2.5 g/dL (3.2-5.0); Alkaline Phosphatase 80 U/L (45-117); Anion Gap 7 (5-15); BUN 16 mg/dL (7-18); BUN/Creat Ratio 10.1 RATIO (10-20); Calcium,Total 8.5 mg/dL (8.5-10.1); Chloride 112 mmol/L (98-107); Creatinine, Serum 1.59 mg/dL (0.70-1.30); EST Glomerular Filtration Rate 47 mL/min (>60); Est Glom Filt Rate - Afr Amer 56 mL/min (>60); Globulin 3.7 g/dL (2.2-4.2); Glucose 107 mg/dL (74-106); Potassium 3.8 mmol/L (3.5-5.1); Protein, Total 6.2 g/dL (6.4-8.2); Sodium Level 142 mmol/L (136-145)
[2019-05-20] MEDS: Ipratropium/Albuterol Sulfate 3 ML AMPUL.NEB INHALATION ×3 (07:22→19:21)
--- NOTE | 2019-05-20 07:35 | PCM.PN.INT ---
Subjective: Patient did well overnight. No acute issues were reported. Patient was on BiPAP overnight for sleep, but respiratory status has remained stable. Patient only with slight fever overnight. Oxygenation continues to be appropriate. General: Alert, Oriented x3, Cooperative, No apparent distress, - - Morbidly obese. Speaking in full sentences. HEENT: Atraumatic, PERRLA, EOMI, Normocephalic, - - No scleral icterus or injection noted Oral: Moist Mucosa, No Gingival or Mucosal Lesions/ Ulcerations Neck: Supple, No JVD, No Nodes, Trachea Midline Lungs: No rhonchi, No wheeze, No rales, Diminished, - - Symmetric expansion. No dullness to percussion. Good BiPAP synchrony. Cardiovascular: Normal S1, Normal S2, No murmurs, Bradycardic, No rub noted, No Gallop Abdomen: Bowel Sounds Present, Soft, Non Tender, Non-Distended, Obese Extremities: No clubbing, No cyanosis, Edema - Trace Skin: No rashes, No breakdown Musculoskeletal: No Tenderness to Palpation of Joints or Extremities Lymphatic: No Cervical, Supraclavicular, or Inguinal Adenopathy Neurological: Cranial nerves II-XII grossly intact, Neuro grossly intact, Motor Exam 5/5 strength throughout Psych/Mental Status: Alert and oriented to time, place, person, mood and affect Vital Signs Temp Pulse Resp BP Pulse Ox 36.8 C 48 L 15 127/64 H 95 05/20/19 07:00 05/20/19 07:00 05/20/19 07:00 05/20/19 07:00 05/20/19 07:00 Oxygen Delivery Method Bi-pap Weight: 146.6 kg Body Mass Index (BMI) 47.7 Intake and Output for Last 24 Hours 05/18/19 05/19/19 05/20/19 23:59 23:59 23:59 Intake Total 1000 / 1000 3237.09 / 4210.22 1894.83 / 1894.83 Output Total 1400 / 1950 1550 / 1550 Balance 1000 / 1000 1837.09 / 2260.22 344.83 / 344.83 Labs (Last 48 Hours) 05/18/19 05/18/19 05/18/19 20:10 20:10 20:10 WBC 7.9 RBC 4.66 Hgb 13.6 Hct 43.1 MCV 92.5 MCH 29.2 MCHC 31.6 L RDW Std Deviation 47.7 H RDW Coeff of Abdiel 14.3 Plt Count 199 MPV 12.2 H Immature Gran % (Auto) 0.300 Neut % (Auto) 86.9 H Lymph % (Auto) 8.2 L [place] % (Auto) 1.8 Eos % (Auto) 2.5 Baso % (Auto) 0.3 Absolute Neuts (auto) 6.9 Absolute Lymphs (auto) 0.65 L Nucleated RBC % 0 Differential Comment Platelet Estimate PT Cancelled INR Cancelled APTT Cancelled Specimen Type Sample Site pH Bicarbonate Actual POC Total CO2 Base Excess O2 Saturation O2 % ABG pCO2 ABG pO2 Yoandy Test O2 Delivery Device EPAP Blood Gas Notified Whom Blood Gas Notified Time Sodium 140 Potassium 4.7 Chloride 108 H Carbon Dioxide 24.0 Anion Gap 8 BUN 21 H Creatinine 1.68 H Estim Creat Clear Calc 43.25 Est GFR (MDRD) Af Amer 53 L Est GFR (MDRD) Non-Af 44 L BUN/Creatinine Ratio 12.5 Glucose 110 H Lactic Acid Calcium 9.0 Magnesium Total Bilirubin 0.30 AST 35 ALT 16 Alkaline Phosphatase 106 Troponin I < 0.015 Total Protein 7.8 Albumin 3.3 Globulin 4.5 H Albumin/Globulin Ratio 0.7 L Urine Color Urine Clarity Urine pH Ur Specific [place] Urine Protein Urine Glucose (UA) Urine Ketones Urine Occult Blood Urine Nitrite Urine Bilirubin Urine Urobilinogen Ur Leukocyte Esterase Urine RBC Urine WBC Ur Squamous Epith Cells Triple Phos Crystals Urine Bacteria Urine Mucus 05/18/19 05/18/19 05/18/19 20:10 21:53 22:00 WBC RBC Hgb Hct MCV MCH MCHC RDW Std Deviation RDW Coeff of Abdiel Plt Count MPV Immature Gran % (Auto) Neut % (Auto) Lymph % (Auto) [place] % (Auto) Eos % (Auto) Baso % (Auto) Absolute Neuts (auto) Absolute Lymphs (auto) Nucleated RBC % Differential Comment Platelet Estimate PT 14.4 INR 1.1 APTT 26.7 Specimen Type Sample Site pH Bicarbonate Actual POC Total CO2 Base Excess O2 Saturation O2 % ABG pCO2 ABG pO2 Yoandy Test O2 Delivery Device EPAP Blood Gas Notified Whom Blood Gas Notified Time Sodium Potassium Chloride Carbon Dioxide Anion Gap BUN Creatinine Estim Creat Clear Calc Est GFR (MDRD) Af Amer Est GFR (MDRD) Non-Af BUN/Creatinine Ratio Glucose Lactic Acid 2.9 H* Calcium Magnesium 1.9 Total Bilirubin AST ALT Alkaline Phosphatase Troponin I Total Protein Albumin Globulin Albumin/Globulin Ratio Urine Color Urine Clarity Urine pH Ur Specific [place] Urine Protein Urine Glucose (UA) Urine Ketones Urine Occult Blood Urine Nitrite Urine Bilirubin Urine Urobilinogen Ur Leukocyte Esterase Urine RBC Urine WBC Ur Squamous Epith Cells Triple Phos Crystals Urine Bacteria Urine Mucus 05/18/19 05/19/19 05/19/19 23:00 02:15 04:00 WBC 16.3 H RBC 4.16 L Hgb 12.2 L Hct 38.2 L MCV 91.8 MCH 29.3 MCHC 31.9 L RDW Std Deviation 47.4 H RDW Coeff of Abdiel 14.1 Plt Count 175 MPV 10.7 Immature Gran % (Auto) 0.900 Neut % (Auto) 89.2 H Lymph % (Auto) 1.9 L [place] % (Auto) 7.0 Eos % (Auto) 0.8 Baso % (Auto) 0.2 Absolute Neuts (auto) 14.6 H Absolute Lymphs (auto) 0.31 L Nucleated RBC % 0 Differential Comment SCANNED Platelet Estimate ADEQUATE PT INR APTT Specimen Type Sample Site pH Bicarbonate Actual POC Total CO2 Base Excess O2 Saturation O2 % ABG pCO2 ABG pO2 Yoandy Test O2 Delivery Device EPAP Blood Gas Notified Whom Blood Gas Notified Time Sodium Potassium Chloride Carbon Dioxide Anion Gap BUN Creatinine Estim Creat Clear Calc Est GFR (MDRD) Af Amer Est GFR (MDRD) Non-Af BUN/Creatinine Ratio Glucose Lactic Acid 2.6 H* Calcium Magnesium Total Bilirubin AST ALT Alkaline Phosphatase Troponin I Total Protein Albumin Globulin Albumin/Globulin Ratio Urine Color Yellow Urine Clarity Clear Urine pH 6.0 Ur Specific [place] 1.015 Urine Protein Negative Urine Glucose (UA) Normal Urine Ketones Negative Urine Occult Blood 10 H Urine Nitrite Negative Urine Bilirubin Negative Urine Urobilinogen Normal Ur Leukocyte Esterase 500 H Urine RBC 10-25 SEEN Urine WBC 10-25 SEEN Ur Squamous Epith Cells 0-5 SEEN Triple Phos Crystals RARE Urine Bacteria 1+ Urine Mucus 0 SEEN 05/19/19 05/19/19 05/19/19 04:00 04:00 05:18 WBC RBC Hgb Hct MCV MCH MCHC RDW Std Deviation RDW Coeff of Abdiel Plt Count MPV Immature Gran % (Auto) Neut % (Auto) Lymph % (Auto) [place] % (Auto) Eos % (Auto) Baso % (Auto) Absolute Neuts (auto) Absolute Lymphs (auto) Nucleated RBC % Differential Comment Platelet Estimate PT INR APTT Specimen Type ART Sample Site R Radial pH 7.32 L Bicarbonate Actual 17.7 L POC Total CO2 19 Base Excess -8 L O2 Saturation 93 L O2 % 21 ABG pCO2 34.6 L ABG pO2 73 L Yoandy Test POS O2 Delivery Device Bi / C PAP EPAP 12 Blood Gas Notified Whom [facility] Blood Gas Notified Time 510 Sodium 142 Potassium 3.9 Chloride 112 H Carbon Dioxide 22.0 Anion Gap 8 BUN 20 H Creatinine 1.64 H Estim Creat Clear Calc 44.31 Est GFR (MDRD) Af Amer 54 L Est GFR (MDRD) Non-Af 45 L BUN/Creatinine Ratio 12.2 Glucose 166 H Lactic Acid Calcium 8.4 L Magnesium Total Bilirubin AST ALT Alkaline Phosphatase Troponin I < 0.015 Total Protein Albumin Globulin Albumin/Globulin Ratio Urine Color Urine Clarity Urine pH Ur Specific [place] Urine Protein Urine Glucose (UA) Urine Ketones Urine Occult Blood Urine Nitrite Urine Bilirubin Urine Urobilinogen Ur Leukocyte Esterase Urine RBC Urine WBC Ur Squamous Epith Cells Triple Phos Crystals Urine Bacteria Urine Mucus 05/19/19 05/19/19 05/20/19 05:30 10:40 04:40 WBC 10.8 RBC 4.08 L Hgb 11.9 L Hct 37.9 L MCV 92.9 MCH 29.2 MCHC 31.4 L RDW Std Deviation 50.4 H RDW Coeff of Abdiel 14.8 H Plt Count 135 L MPV 11.0 Immature Gran % (Auto) 0.500 Neut % (Auto) 75.4 H Lymph % (Auto) 8.0 L [place] % (Auto) 13.9 H Eos % (Auto) 1.9 Baso % (Auto) 0.3 Absolute Neuts (auto) 8.2 H Absolute Lymphs (auto) 0.86 Nucleated RBC % 0 Differential Comment Platelet Estimate PT INR APTT Specimen Type Sample Site pH Bicarbonate Actual POC Total CO2 Base Excess O2 Saturation O2 % ABG pCO2 ABG pO2 Yoandy Test O2 Delivery Device EPAP Blood Gas Notified Whom Blood Gas Notified Time Sodium Potassium Chloride Carbon Dioxide Anion Gap BUN Creatinine Estim Creat Clear Calc Est GFR (MDRD) Af Amer Est GFR (MDRD) Non-Af BUN/Creatinine Ratio Glucose Lactic Acid 4.8 H* 2.8 H* Calcium Magnesium Total Bilirubin AST ALT Alkaline Phosphatase Troponin I Total Protein Albumin Globulin Albumin/Globulin Ratio Urine Color Urine Clarity Urine pH Ur Specific [place] Urine Protein Urine Glucose (UA) Urine Ketones Urine Occult Blood Urine Nitrite Urine Bilirubin Urine Urobilinogen Ur Leukocyte Esterase Urine RBC Urine WBC Ur Squamous Epith Cells Triple Phos Crystals Urine Bacteria Urine Mucus 05/20/19 04:40 WBC RBC Hgb Hct MCV MCH MCHC RDW Std Deviation RDW Coeff of Abdiel Plt Count MPV Immature Gran % (Auto) Neut % (Auto) Lymph % (Auto) [place] % (Auto) Eos % (Auto) Baso % (Auto) Absolute Neuts (auto) Absolute Lymphs (auto) Nucleated RBC % Differential Comment Platelet Estimate PT INR APTT Specimen Type Sample Site pH Bicarbonate Actual POC Total CO2 Base Excess O2 Saturation O2 % ABG pCO2 ABG pO2 Yoandy Test O2 Delivery Device EPAP Blood Gas Notified Whom Blood Gas Notified Time Sodium 142 Potassium 3.8 Chloride 112 H Carbon Dioxide 23.0 Anion Gap 7 BUN 16 Creatinine 1.59 H Estim Creat Clear Calc 45.70 Est GFR (MDRD) Af Amer 56 L Est GFR (MDRD) Non-Af 47 L BUN/Creatinine Ratio 10.1 Glucose 107 H Lactic Acid Calcium 8.5 Magnesium Total Bilirubin 0.60 AST 17 ALT 15 L Alkaline Phosphatase 80 Troponin I Total Protein 6.2 L Albumin 2.5 L Globulin 3.7 Albumin/Globulin Ratio 0.7 L Urine Color Urine Clarity Urine pH Ur Specific [place] Urine Protein Urine Glucose (UA) Urine Ketones Urine Occult Blood Urine Nitrite Urine Bilirubin Urine Urobilinogen Ur Leukocyte Esterase Urine RBC Urine WBC Ur Squamous Epith Cells Triple Phos Crystals Urine Bacteria Urine Mucus Microbiology 05/18/19 23:00 Urine, Clean Catch Urine Culture - Preliminary Gram negative wilber 05/18/19 21:53 Blood Culture (Wb) - Anticubital Right Blood Culture - Preliminary 05/18/19 22:00 Blood Culture (Wb) - Right Forearm Blood Culture - Preliminary 05/18/19 23:21 Mucosa - Nasopharyngeal Respiratory Panel (PCR) - Final 05/18/19 21:40 Mucosa - Nasopharyngeal Influenza Types A,B Direct FA (KATIE) - Final Medical Necessity - Tobacco Use Smoking Status: Former smoker - Patient quit cigarette tobacco usage in 1985 with prior to this approximately 2 pack/day since he was about 20 years old. Tobacco Use: Non-smoker Assessment/Plan All Active Problems Viral syndrome (Acute) Severe sepsis (Acute) TEODORO (acute kidney injury) (Acute) Septic joint of right knee joint (Acute) History of total right knee replacement (Acute) RECOMMENDATIONS: 1. Likely okay to transition to baseline CPAP therapy 2. Discontinue vancomycin, but continue gram-negative coverage pending culture results 3. Increase activity as tolerated 4. Likely not necessary to quarantine for coronavirus 5. Okay to transfer out of the intensive care unit from my perspective IMPRESSIONS: 1. Acute hypoxic respiratory failure/severe sepsis secondary to gram-negative UTI Viral panel was negative. Some concern for COVID-19. However, after hospitalization, patient had gram-negative growing in his blood and urine within 12 hours. This would account for patient's high fever. Hypoxic respiratory failure may be secondary to underlying obstructive lung disease with poor respiratory mechanics. Likely okay to transition from BiPAP to his home CPAP for sleep apnea. Discontinue vancomycin, but continue Zosyn for now until cultures are available. Anticipate narrowing of antibiotic spectrum in the next 24 hours. 2. Chronic kidney disease stage III/hypertension/morbid obesity/BPH/anxiety/depression/GERD/LILI Complicates care, management, recovery and prognosis. May need to discontinue antihypertensive medications pending response to therapy. Okay to transition to baseline CPAP therapy from my perspective. Okay to continue with baseline anxiety and depression medications. Inpatient E&M: [id number] [facility] L3
[2019-05-20] MEDS: Pantoprazole Sodium 20 MG Tablet PO (07:58)
[2019-05-20] MEDS: Aspirin E.C. 81 MG Tablet PO (07:58)
[2019-05-20] MEDS: Tamsulosin HCl 0.4 MG Capsule PO (07:58)
[2019-05-20] MEDS: Citalopram 20 MG Tablet PO (07:58)
[2019-05-20] MEDS: Multivitamins,Therapeutic Tablet 1 TABLET PO (07:58)
[2019-05-20] MEDS: Enoxaparin 40 MG/0.4 ML Syringe SC (08:00)
--- NOTE | 2019-05-20 10:05 | PCM.PN.HOSP ---
Patient Problems: Active and Suspected Problems Viral syndrome (Acute) Severe sepsis (Acute) Subjective: Doing well, feels better than yesterday. Breathing well on his own. Does not appear to have a cough today. No issues overnight Vitals/I&O's: Vital Signs Temp Pulse Resp BP Pulse Ox 98.3 F 63 16 146/62 H 94 05/20/19 08:00 05/20/19 09:00 05/20/19 09:00 05/20/19 09:00 05/20/19 09:00 Oxygen Delivery Method Room Air Weight: 323 lb 3.163 oz Body Mass Index (BMI) 47.7 Intake and Output for Last 24 Hours 05/18/19 05/19/19 05/20/19 23:59 23:59 23:59 Intake Total 1000 / 1000 3237.09 / 4210.22 2424.83 / 2424.83 Output Total 1400 / 1950 1550 / 1550 Balance 1000 / 1000 1837.09 / 2260.22 874.83 / 874.83 General: Alert, Oriented x3, Cooperative, No apparent distress HEENT: Atraumatic, PERRLA, EOMI, Normocephalic Oral: Dry Mucosa Neck: Supple, No JVD Lungs: Clear to auscultation, Normal air movement, No rhonchi, No wheeze, No rales, Diminished Cardiovascular: Regular rate, Regular Rhythm, Normal S1, Normal S2, No murmurs Abdomen: Soft, Non Tender, Non-Distended, No Hepato-splenomegaly Extremities: No edema, Capillary Refill Less than 3 Seconds Skin: No rashes, No breakdown Neurological: Neuro grossly intact, Sensory exam intact to light touch and pain Psych/Mental Status: Normal Affect, Appropriate Microbiology Past 72 Hours 05/18/19 23:00 Urine, Clean Catch Urine Culture - Final Escherichia coli 05/18/19 21:53 Blood Culture (Wb) - Anticubital Right Blood Culture - Preliminary 05/18/19 22:00 Blood Culture (Wb) - Right Forearm Blood Culture - Preliminary 05/18/19 23:21 Mucosa - Nasopharyngeal Respiratory Panel (PCR) - Final 05/18/19 21:40 Mucosa - Nasopharyngeal Influenza Types A,B Direct FA (KATIE) - Final Laboratory Results 05/19/19 10:40: Lactic Acid 2.8 H* 05/20/19 04:40: WBC 10.8, RBC 4.08 L, Hgb 11.9 L, Hct 37.9 L, MCV 92.9, MCH 29.2, MCHC 31.4 L, RDW Std Deviation 50.4 H, RDW Coeff of Abdiel 14.8 H, Plt Count 135 L, MPV 11.0, Immature Gran % (Auto) 0.500, Neut % (Auto) 75.4 H, Lymph % (Auto) 8.0 L, [place] % (Auto) 13.9 H, Eos % (Auto) 1.9, Baso % (Auto) 0.3, Absolute Neuts (auto) 8.2 H, Absolute Lymphs (auto) 0.86, Nucleated RBC % 0 05/20/19 04:40: Sodium 142, Potassium 3.8, Chloride 112 H, Carbon Dioxide 23.0, Anion Gap 7, BUN 16, Creatinine 1.59 H, Estim Creat Clear Calc 45.70, Est GFR (MDRD) Af Amer 56 L, Est GFR (MDRD) Non-Af 47 L, BUN/Creatinine Ratio 10.1, Glucose 107 H, Calcium 8.5, Total Bilirubin 0.60, AST 17, ALT 15 L, Alkaline Phosphatase 80, Total Protein 6.2 L, Albumin 2.5 L, Globulin 3.7, Albumin/Globulin Ratio 0.7 L Current Medications Acetaminophen (Tylenol) 650 mg PO Q6H PRN PRN PRN Reason: Fever >100.4F Last Admin: 05/19/19 21:52 Dose: 650 mg Documented by: Albuterol Sulfate (Ventolin Aerosols) 2.5 mg INHALATION Q2H PRN PRN PRN Reason: Dyspnea, wheezing. Albuterol/Ipratropium (Duoneb) 3 ml INHALATION Q4HWA.RT [facility] Last Admin: 05/20/19 07:22 Dose: 3 ml Documented by: Aspirin (Ecotrin) 81 mg PO DAILY [facility] Last Admin: 05/20/19 07:58 Dose: 81 mg Documented by: Citalopram Hydrobromide (Celexa) 20 mg PO DAILY [facility] Last Admin: 05/20/19 07:58 Dose: 20 mg Documented by: Enoxaparin Sodium (Lovenox) 40 mg SC DAILY [facility] Last Admin: 05/20/19 08:00 Dose: 40 mg Documented by: Sodium Chloride () 1,000 mls @ 125 mls/hr IV .Q8H [facility] Last Admin: 05/20/19 09:33 Dose: Not Given Documented by: Sodium Chloride () 250 mls @ 15 mls/hr IV .[id number] PRN PRN Reason: Saline Flush Last Infusion: 05/20/19 09:32 Dose: Infused Documented by: Sodium Chloride () 250 mls @ 15 mls/hr IV .[id number] PRN PRN Reason: Additional IVPB Infusion Ceftriaxone Sodium (Rocephin) 1 gm in 50 mls @ 100 mls/hr IV Q24 [facility] Metoprolol Tartrate (Lopressor (Beta Nancy)) 50 mg PO BID [facility] Last Admin: 05/20/19 08:03 Dose: Not Given Documented by: Multivitamins (Multivitamin) 1 tablet PO DAILYCM [facility] Last Admin: 05/20/19 07:58 Dose: 1 tablet Documented by: Pantoprazole Sodium (Protonix) 20 mg PO DAILY [facility] Last Admin: 05/20/19 07:58 Dose: 20 mg Documented by: Sodium Chloride () 10 - 40 ml IV UD PRN PRN Reason: SALINE FLUSH Tamsulosin HCl (Flomax) 0.4 mg PO DAILY [facility] Last Admin: 05/20/19 07:58 Dose: 0.4 mg Documented by: STROKE Vital Signs/Narrative: Vital Signs Temp Pulse Resp BP Pulse Ox 05/20/19 09:00 63 16 146/62 H 94 05/20/19 08:03 54 L 05/20/19 08:00 98.3 F 60 32 H 156/56 H 97 05/20/19 07:00 98.3 F 48 L 15 127/64 H 95 Medical Necessity - Tobacco Use Smoking Status: Former smoker - Patient quit cigarette tobacco usage in 1985 with prior to this approximately 2 pack/day since he was about 20 years old. Tobacco Use: Non-smoker Assessment/Plan All Active Problems Viral syndrome (Acute) Severe sepsis (Acute) TE[place]O (acute kidney injury) (Acute) Septic joint of right knee joint (Acute) History of total right knee replacement (Acute) 1. Severe sepsis secondary to UTI -He does have a previous significant history of tobacco use where he was smoking 2 packs a day -No severe acute lower respiratory illness, chest x-ray is unremarkable -Urine bacteria 1+ and leukocyte esterases at 500 and he does have an elevated urine white count, urine culture with a fairly pansensitive E. coli -He was de-escalated to Rocephin from Zosyn and vancomycin, blood cultures are pending should hopefully have identification and sensitivities today can plan for discharge on oral antibiotic tomorrow -IV fluids at 125 -Echo with normal EF and stage II diastolic dysfunction 2. HTN/CKD 3 -Creatinine is at baseline of 1.5-1.6 -Continue with metoprolol -Continue with aspirin 3. GERD -Stable -Continue with PPI 4. Anxiety/depression -Stable -Continue with Celexa DVT: Lovenox Inpatient E&M: [id number] [facility] L2
[2019-05-20] MEDS: 0.9% Saline Lock 10 ML Syringe IV (14:32)
[2019-05-20] MEDS: Ceftriaxone 1 GM/50 ML BAG IV (15:21)
--- NOTE | 2019-05-20 20:55 | CPS ---
STRIKE PLATE ATTACHER tried to setup patient's home PAP unit. STRIKE PLATE ATTACHER noticed that pts. machine was not powering up after setup was completed. Wiring in back was noticed to be broke with electrical tape holding it together. STRIKE PLATE ATTACHER tried to troubleshoot this problem, but machine was unable to receive power. Offered to let patient use hospitals PAP machine, but he declined. Will have patient wear 2L NC tonight. RN aware.
[2019-05-20] MEDS: Metoprolol Tartrate 50 MG Tablet PO (21:53)
[2019-05-21 02:59] VITALS: PULSE 49
[2019-05-21 03:00] VITALS: BP 147/68; PULSE 58; RESP 18; TEMP 36.8; O2SAT 97
--- NOTE | 2019-05-21 03:28 | EKG12_ITS ---
Test Reason : RHYTHM CHANGE Blood Pressure : / mmHG Vent. Rate : 055 BPM Atrial Rate : 043 BPM P-R Int : 000 ms QRS Dur : 090 ms QT Int : 458 ms P-R-T Axes : 000 021 021 degrees QTc Int : 438 ms Sinus bradycardia Abnormal ECG When compared with ECG of 18-MAY-2019 21:49, MANUAL COMPARISON REQUIRED, DATA IS UNCONFIRMED Confirmed by STACEY LIMA ([id number]), video news editor KHANH HOBBS ([id number]) on 05/22/2019 9:53:36 AM Referred By: STACY Confirmed By:STACEY LIMA
--- NOTE | 2019-05-21 04:10 | PCM.PN.BLA ---
Progress Note Patient with bradycardia while sleeping. On monitor patient was found to have a flutter/A. fib. EKG showed A. fib with slow ventricular response. Patient with CKD stage III. Prophylactic dose of Lovenox. Discontinue prophylactic dose of Lovenox and give therapeutic dose of Lovenox x1. STROKE Vital Signs/Narrative: Vital Signs Temp Pulse Resp BP Pulse Ox 05/21/19 03:00 98.2 F 58 L 18 147/68 H 97 05/21/19 02:59 49 L
--- NOTE | 2019-05-21 04:12 | NURSING ---
Verified with Ziyad in pharmacy to double check dosage for this patient receiving a times one dose of Lovenox 150 mg. Per Ziyad in pharmacy dosing is based on patients weight, 1 mg per 1 kg.
[2019-05-21] MEDS: Enoxaparin 150 MG/ML Syringe SC (04:17)
[2019-05-21] MEDS: 0.9% Normal Saline 1,000 ML 125 ML IV (06:09)
[2019-05-21 06:58] VITALS: PULSE 52; RESP 18; O2SAT 95
[2019-05-21] MEDS: Ipratropium/Albuterol Sulfate 3 ML AMPUL.NEB INHALATION (06:58)
[2019-05-21 07:20] LABS: Anion Gap 4 (5-15); BUN 16 mg/dL (7-18); BUN/Creat Ratio 10.5 RATIO (10-20); Calcium,Total 8.6 mg/dL (8.5-10.1); Chloride 116 mmol/L (98-107); Creatinine, Serum 1.52 mg/dL (0.70-1.30); EST Glomerular Filtration Rate 49 mL/min (>60); Est Glom Filt Rate - Afr Amer 59 mL/min (>60); Estimated Creatinine Clearance 47.81 ml/min; Glucose 117 mg/dL (74-106); Potassium 4.2 mmol/L (3.5-5.1); Sodium Level 146 mmol/L (136-145)
--- NOTE | 2019-05-21 07:24 | PCM.PN.INT ---
Subjective: Patient transferred out of the intensive care unit yesterday. Patient states he is back to his baseline from his perspective. Patient did have some new onset A. fib overnight and was given Lovenox. No bleeding complications are reported. General: Alert, Oriented x3, Cooperative, No apparent distress, - - Morbidly obese. Speaking in full sentences. HEENT: Atraumatic, PERRLA, EOMI, Normocephalic, - - No scleral icterus or injection noted Oral: Moist Mucosa, No Gingival or Mucosal Lesions/ Ulcerations Neck: Supple, No JVD, No Nodes, Trachea Midline Lungs: No rhonchi, No wheeze, No rales, Diminished Cardiovascular: Normal S1, Normal S2, No murmurs, Bradycardic, No rub noted, No Gallop Abdomen: Bowel Sounds Present, Soft, Non Tender, Non-Distended, Obese Extremities: No clubbing, No cyanosis, Edema - Trace to 1+ lower extremity Skin: No rashes, No breakdown Musculoskeletal: No Tenderness to Palpation of Joints or Extremities Lymphatic: No Cervical, Supraclavicular, or Inguinal Adenopathy Neurological: Cranial nerves II-XII grossly intact, Neuro grossly intact, Motor Exam 5/5 strength throughout Psych/Mental Status: Alert and oriented to time, place, person, mood and affect Vital Signs Temp Pulse Resp BP Pulse Ox 36.8 C 58 L 18 147/68 H 97 05/21/19 03:00 05/21/19 03:00 05/21/19 03:00 05/21/19 03:00 05/21/19 03:00 Oxygen Flow Rate (L/min) 2 Oxygen Delivery Method Nasal Cannula Weight: 148.2 kg Body Mass Index (BMI) 47.7 Intake and Output for Last 24 Hours 05/19/19 05/20/19 05/21/19 23:59 23:59 23:59 Intake Total 3237.09 / 4210.22 3981.92 / 3981.92 1040.83 / 1040.83 Output Total 1400 / 1950 3425 / 3425 425 / 425 Balance 1837.09 / 2260.22 556.92 / 556.92 615.83 / 615.83 Labs (Last 48 Hours) 05/19/19 05/20/19 05/20/19 10:40 04:40 04:40 WBC 10.8 RBC 4.08 L Hgb 11.9 L Hct 37.9 L MCV 92.9 MCH 29.2 MCHC 31.4 L RDW Std Deviation 50.4 H RDW Coeff of Abdiel 14.8 H Plt Count 135 L MPV 11.0 Immature Gran % (Auto) 0.500 Neut % (Auto) 75.4 H Lymph % (Auto) 8.0 L [place] % (Auto) 13.9 H Eos % (Auto) 1.9 Baso % (Auto) 0.3 Absolute Neuts (auto) 8.2 H Absolute Lymphs (auto) 0.86 Nucleated RBC % 0 Sodium 142 Potassium 3.8 Chloride 112 H Carbon Dioxide 23.0 Anion Gap 7 BUN 16 Creatinine 1.59 H Estim Creat Clear Calc 45.70 Est GFR (MDRD) Af Amer 56 L Est GFR (MDRD) Non-Af 47 L BUN/Creatinine Ratio 10.1 Glucose 107 H Lactic Acid 2.8 H* Calcium 8.5 Total Bilirubin 0.60 AST 17 ALT 15 L Alkaline Phosphatase 80 Total Protein 6.2 L Albumin 2.5 L Globulin 3.7 Albumin/Globulin Ratio 0.7 L 05/21/19 06:40 WBC RBC Hgb Hct MCV MCH MCHC RDW Std Deviation RDW Coeff of Abdiel Plt Count MPV Immature Gran % (Auto) Neut % (Auto) Lymph % (Auto) [place] % (Auto) Eos % (Auto) Baso % (Auto) Absolute Neuts (auto) Absolute Lymphs (auto) Nucleated RBC % Sodium 146 H Potassium 4.2 Chloride 116 H Carbon Dioxide 26.0 Anion Gap 4 L BUN 16 Creatinine 1.52 H Estim Creat Clear Calc 47.81 Est GFR (MDRD) Af Amer 59 L Est GFR (MDRD) Non-Af 49 L BUN/Creatinine Ratio 10.5 Glucose 117 H Lactic Acid Calcium 8.6 Total Bilirubin AST ALT Alkaline Phosphatase Total Protein Albumin Globulin Albumin/Globulin Ratio Microbiology 05/18/19 22:00 Blood Culture (Wb) - Right Forearm Blood Culture - Preliminary Gram negative wilber 05/18/19 23:00 Urine, Clean Catch Urine Culture - Final Escherichia coli 05/18/19 21:53 Blood Culture (Wb) - Anticubital Right Blood Culture - Preliminary 05/18/19 23:21 Mucosa - Nasopharyngeal Respiratory Panel (PCR) - Final Medical Necessity - Tobacco Use Smoking Status: Former smoker - Patient quit cigarette tobacco usage in 1985 with prior to this approximately 2 pack/day since he was about 20 years old. Tobacco Use: Non-smoker Assessment/Plan All Active Problems Viral syndrome (Acute) Severe sepsis (Acute) TEODORO (acute kidney injury) (Acute) Septic joint of right knee joint (Acute) History of total right knee replacement (Acute) RECOMMENDATIONS: 1. Continue CPAP therapy with sleep 2. Complete a total of 10 days of antibiotics, likely okay to transition to p.o. today to complete course 3. Consider outpatient evaluation by urology for urinary retention 4. Hemodynamically stable on room air. Will sign off from a critical care perspective 5. Consider increase in oral free water with discontinuation of normal saline IMPRESSIONS: 1. Acute hypoxic respiratory failure/severe sepsis secondary to E. coli UTI Patient has been doing well from a hemodynamic standpoint. Patient did have some A. fib overnight, but defer to primary service. Blood pressures have remained stable. 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 Patient can likely be transition to a p.o. antibiotic to complete a 10-day course. Patient should be seen as an outpatient by urology for urinary retention predisposing to this condition, likely BPH. 2. Chronic kidney disease stage III/hypertension/morbid obesity/BPH/anxiety/depression/GERD/LILI Complicates care, management, recovery and prognosis. Defer to primary service on new onset A. fib. Okay to transition to baseline CPAP therapy from my perspective. Okay to continue with baseline anxiety and depression medications. Inpatient E&M: 36201 [facility] Hosp L2
--- NOTE | 2019-05-21 08:27 | DCINST_ITS ---
- Discharge Diagnoses Current Active Problems: Current Active and Chronic Problems Viral syndrome (Acute) Severe sepsis (Acute) Anxiety and depression (Chronic) CKD (chronic kidney disease), stage III (Chronic) You will use the following diet at home:: Calorie/Carbohydrate Controlled (specify 1200, 1400, etc) Your food should be the consistency of: Regular Your liquids should be the consistency of: Regular/Thin Discharge Activity: Return to Normal Activity Call your doctor if you observe: Fever of 101 or Higher, Shortness of breath, Dizziness, Fainting spells, Swelling in the ankles, Chest pain, Increased palpit ations (irregular heartbeat) Allergies/Adverse Reactions: Allergies bee venom protein (honey bee) Allergy (Verified 05/18/19 20:22) Hives spider venom Adverse Reaction (Verified 05/18/19 20:22) Other Medications to take at Discharge Citalopram [Celexa] 20 mg PO DAILY 09/21/14 Cod Liver Oil 300 mg PO BID 09/21/14 Metoprolol Tartrate [Lopressor (beta kiki)] 50 mg PO BID 09/21/14 Multivitamins,Therapeutic [Multivitamin] 1 tablet PO DAILY 09/21/14 Esomeprazole Mag Trihydrate [Nexium] 20 mg PO DAILY 05/18/19 Tamsulosin HCl 0.4 mg PO DAILY 05/18/19 Apixaban [Eliquis] 5 mg PO BID #60 tab 05/21/19 Cephalexin [Keflex] 500 mg PO Q6 #28 cap 05/21/19 The following prescriptions were given: Apixaban [Eliquis] 5 mg PO BID #60 tab Transmission Status: Pending to [facility] Cephalexin [Keflex] 500 mg PO Q6 #28 cap Transmission Status: Pending to [facility] Primary Care Physician: Ziyad Colon MD [Primary Care Provider] - Please follow up with your Primary Care Physician in: 3-5 days Test Results: Test results from this visit will be discussed in further detail at your follow- up appointment, if applicable. Please Follow Up With: Cornell Burkett MD When: 2-4 weeks Please Follow Up With: Cedric Valenzuela MD When: 4 weeks
[2019-05-21 09:00] VITALS: BP 139/79; PULSE 65; RESP 18; TEMP 36.7; O2SAT 95
--- NOTE | 2019-05-21 10:37 | PCM.DC.SUM ---
Discharge Date and Diagnosis - Problem List Patient Problems: Active and Suspected Problems Viral syndrome (Acute) Severe sepsis (Acute) Date of Admission: 05/18/19 Date of Discharge: 05/21/19 - Primary Discharge Diagnosis Active and Suspected Problems Viral syndrome (Acute) Severe sepsis (Acute) - Secondary Discharge Diagnosis Chronic Problems Anxiety and depression (Chronic) CKD (chronic kidney disease), stage III (Chronic) GERD (gastroesophageal reflux disease) (Chronic) Obstructive sleep apnea (Chronic) Morbid obesity (Chronic) Depression (Chronic) Hypertension (Chronic) Hospital Course and Treatment Imaging Results: CXR: IMPRESSION: No acute cardiopulmonary findings Echo: Interpretation Summary Normal LV size. Left ventricular systolic function is normal. The estimated ejection fraction is 65 %. Stage 2 diastolic dysfunction. Contrast injection was performed Consults: ICU Operations: None Procedures: 2-D Echocardiogram Summary of Care Provided: Per HPI: The patient is a 68 y/o M w/ PMHx: CKD stage III, Anxiety and Depression, GERD, HTN, BPH, Morbid Obesity, Former Tobacco use who presents to the [facility] ED on 05/18/19 with history of ongoing worsening fatigue, malaise, mildly productive cough with dyspnea, worse with exertion with arthralgias, myalgias as well as nausea with poor oral intake over the last 2 to 3 days with onset chills descriptive of rigors prior to ED presentation. Patient denies any recent market travel or contacts with patients who have been ill. His does have asthma and notes that she recently had some mild dyspnea but she had run out of her medications. work-up in the ED included T101, heart rate 75, BP 156/73, respiratory rate 24, 96% on room air, CBC with WC 7.9, hemoglobin 13.6, platelet 199 with mild left shift although not market, unremarkable coags, CMP with chloride 108, BUN/creatinine 21/1.68, glucose 110, lactic acid 2.9, troponin less than 0.015, urinalysis with mildly elevated specific gravity 1.015, occult blood 10, negative nitrite, leukocyte esterase 500, pending WBC, RBC, squamous epithelial cells, urine bacteria, chest x-ray with no acute cardiopulmonary findings, negative but influenza panel with pending respiratory viral panel, blood culture x2 pending per ED, urine culture pending per ED. in the ED patient administered normal saline, Tylenol therapy. Hospital Course: 1. Severe sepsis secondary to UTI and E. coli [id number] male presented to the hospital with worsening fatigue, malaise, and a mildly productive cough with dyspnea. He also had some nausea and poor oral intake for 2 to 3 days as well as chills and rigors. Initially there is a concern for viral URI as the cause however he did have a mildly positive UA which ended up growing E. coli. His blood cultures ended up coming back positive for gram-negative wilber bacteremia as well. He had been started on Zosyn and then transition to Rocephin. He was ultimately discharged on Keflex 4 times a day for 7 more days. With administration of antibiotics he has improved very quickly and has asked to go home today. I did discuss with him the risks and benefits of discharge and he expressed understanding. I did discuss with him that there is a likely component of BPH as he states that he feels like he may be retaining at times where he can have an easy time starting his stream however he feels that he is unable to empty his bladder completely. I do recommend that he follow-up with urology as an outpatient. 2. Bradycardia and new onset A. fib with a slow ventricular response-initially he was found to be bradycardic but sinus and an echo was obtained which was unremarkable, with a normal EF and stage II diastolic dysfunction. However overnight prior to discharge he did go into A. fib. Since he has had an echo and he is not in RVR and he is already on metoprolol he was discharged home with Barb and he understand the need to follow-up with cardiology as an outpatient for further evaluation. Given his age and his hypertension he did meet criteria for anticoagulation. To this end his aspirin was discontinued on discharge. Likelihood is is that this is mediated by nocturnal hypoxia as he has not been wearing his CPAP at night for his obstructive sleep apnea because of malfunction unit. 3. His other medical diagnoses were evaluated and his home medications were continued where appropriate Patient Problems: Active and Suspected Problems Viral syndrome (Acute) Severe sepsis (Acute) - Physical Exam Vitals/I&O's: Vital Signs Temp Pulse Resp BP Pulse Ox 98.0 F 65 18 139/79 H 95 05/21/19 09:00 05/21/19 09:00 05/21/19 09:00 05/21/19 09:00 05/21/19 09:00 Oxygen Flow Rate (L/min) 2 Oxygen Delivery Method Nasal Cannula Weight: 326 lb 11.601 oz Body Mass Index (BMI) 47.7 Intake and Output for Last 24 Hours 05/19/19 05/20/19 05/21/19 23:59 23:59 23:59 Intake Total 3237.09 / 4210.22 3981.92 / 3981.92 1040.83 / 1040.83 Output Total 1400 / 1950 3425 / 3425 425 / 425 Balance 1837.09 / 2260.22 556.92 / 556.92 615.83 / 615.83 General: Alert, Oriented x3, Cooperative, No apparent distress HEENT: Atraumatic, PERRLA, EOMI, Normocephalic Oral: Dry Mucosa Neck: Supple, No JVD Lungs: Clear to auscultation, Normal air movement, No rhonchi, No wheeze, No rales, Diminished Cardiovascular: Regular rate, Regular Rhythm, Normal S1, Normal S2, No murmurs Abdomen: Soft, Non Tender, Non-Distended, No Hepato-splenomegaly Extremities: No edema, Capillary Refill Less than 3 Seconds Skin: No rashes, No breakdown Neurological: Neuro grossly intact, Sensory exam intact to light touch and pain Psych/Mental Status: Normal Affect, Appropriate Microbiology Past 72 Hours 05/18/19 21:53 Blood Culture (Wb) - Anticubital Right Blood Culture - Preliminary Escherichia coli 05/18/19 22:00 Blood Culture (Wb) - Right Forearm Blood Culture - Preliminary Gram negative wilber 05/18/19 23:00 Urine, Clean Catch Urine Culture - Final Escherichia coli 05/18/19 23:21 Mucosa - Nasopharyngeal Respiratory Panel (PCR) - Final 05/18/19 21:40 Mucosa - Nasopharyngeal Influenza Types A,B Direct FA (KATIE) - Final Laboratory Results 05/21/19 06:40: Sodium 146 H, Potassium 4.2, Chloride 116 H, Carbon Dioxide 26.0, Anion Gap 4 L, BUN 16, Creatinine 1.52 H, Estim Creat Clear Calc 47.81, Est GFR (MDRD) Af Amer 59 L, Est GFR (MDRD) Non-Af 49 L, BUN/Creatinine Ratio 10.5, Glucose 117 H, Calcium 8.6 Current Medications Acetaminophen (Tylenol) 650 mg PO Q6H PRN PRN PRN Reason: Fever >100.4F Last Admin: 05/19/19 21:52 Dose: 650 mg Documented by: Albuterol Sulfate (Ventolin Aerosols) 2.5 mg INHALATION Q2H PRN PRN PRN Reason: Dyspnea, wheezing. Albuterol/Ipratropium (Duoneb) 3 ml INHALATION Q6HWA.RT [facility] Last Admin: 05/21/19 06:58 Dose: 3 ml Documented by: Aspirin (Ecotrin) 81 mg PO DAILY [facility] Last Admin: 05/20/19 07:58 Dose: 81 mg Documented by: Citalopram Hydrobromide (Celexa) 20 mg PO DAILY [facility] Last Admin: 05/20/19 07:58 Dose: 20 mg Documented by: Sodium Chloride () 250 mls @ 15 mls/hr IV .[id number] PRN PRN Reason: Saline Flush Last Infusion: 05/20/19 09:32 Dose: Infused Documented by: Sodium Chloride () 250 mls @ 15 mls/hr IV .[id number] PRN PRN Reason: Additional IVPB Infusion Ceftriaxone Sodium (Rocephin) 1 gm in 50 mls @ 100 mls/hr IV Q24 [facility] Last Infusion: 05/20/19 15:51 Dose: Infused Documented by: Metoprolol Tartrate (Lopressor (Beta Nancy)) 50 mg PO BID [facility] Last Admin: 05/20/19 21:53 Dose: 50 mg Documented by: Multivitamins (Multivitamin) 1 tablet PO DAILYCM [facility] Last Admin: 05/20/19 07:58 Dose: 1 tablet Documented by: Pantoprazole Sodium (Protonix) 20 mg PO DAILY [facility] Last Admin: 05/20/19 07:58 Dose: 20 mg Documented by: Sodium Chloride () 10 - 40 ml IV UD PRN PRN Reason: SALINE FLUSH Last Admin: 05/20/19 14:32 Dose: 10 ml Documented by: Tamsulosin HCl (Flomax) 0.4 mg PO DAILY [facility] Last Admin: 05/20/19 07:58 Dose: 0.4 mg Documented by: Discharge Activity: Return to Normal Activity Call your doctor if you observe: Fever of 101 or Higher, Shortness of breath, Dizziness, Fainting spells, Swelling in the ankles, Chest pain, Increased palpitations (irregular heartbeat) Home Medications: Medications to take at Discharge Citalopram [Celexa] 20 mg PO DAILY 09/21/14 Cod Liver Oil 300 mg PO BID 09/21/14 Metoprolol Tartrate [Lopressor (beta nancy)] 50 mg PO BID 09/21/14 Multivitamins,Therapeutic [Multivitamin] 1 tablet PO DAILY 09/21/14 Esomeprazole Mag Trihydrate [Nexium] 20 mg PO DAILY 05/18/19 Tamsulosin HCl 0.4 mg PO DAILY 05/18/19 Apixaban [Eliquis] 5 mg PO BID #60 tab 05/21/19 Cephalexin [Keflex] 500 mg PO Q6 #28 cap 05/21/19 Following Prescrptions Were Given to Patient: Apixaban [Eliquis] 5 mg PO BID #60 tab Transmission Status: Received by [facility] Cephalexin [Keflex] 500 mg PO Q6 #28 cap Transmission Status: Received by [facility] Primary Care Physician: Ziyad Colon MD [Primary Care Provider] - Please follow up with your Primary Care Physician in: 3-5 days Please Follow Up With: Cornell Burkett MD When: 2-4 weeks Please Follow Up With: Cedric Valenzuela MD When: 4 weeks Disposition: Home Minutes spent on discharge:: 35 Patient Condition:: Stable Medical Necessity - Tobacco Use Smoking Status: Former smoker - Patient quit cigarette tobacco usage in 1985 with prior to this approximately 2 pack/day since he was about 20 years old. Tobacco Use: Non-smoker Meaningful Use Info Meaningful Use Diagnoses (Choose all that apply): None applicable Inpatient E&M: 74131 Disch Hosp
--- NOTE | 2019-05-21 10:48 | CASEMGMT ---
Per Dr. To, pt to be sent home on Eliquis at discharge and med e-scribed to [facility] retail pharm previously. Call to Ana in [facility] retail pharmacy and she states that pt's co-pay is $482 of which $435 is deductible. She states that they applied a 30 day free trial card at this time and once pt meets deductible, pt's co-pay will be $47. Pt is updated on all at this time, voices understanding. Pt voices no concerns with going home at time of discharge. Pt voices no further questions/concerns/needs at this time. SStailsia VERA CM
[2019-05-21 11:06] VITALS: PULSE 60
[2019-05-21] MEDS: Metoprolol Tartrate 50 MG Tablet PO (11:06)
[2019-05-21] MEDS: Ceftriaxone 1 GM/50 ML BAG IV (11:06)
[2019-05-21] MEDS: Pantoprazole Sodium 20 MG Tablet PO (11:07)
[2019-05-21] MEDS: Aspirin E.C. 81 MG Tablet PO (11:07)
[2019-05-21] MEDS: Multivitamins,Therapeutic Tablet 1 TABLET PO (11:07)
[2019-05-21] MEDS: Citalopram 20 MG Tablet PO (11:07)
--- NOTE | 2019-05-21 11:52 | PHA.DC.MC ---
Pharmacy Service has performed discharge medication reconciliation and counseling for this patient. 1. CEPHALEXIN 500MG PO Q6H X 7 DAYS 2. APIXABAN 5MG PO BID The patient's discharge medication list was reviewed for discrepancies and discrepancies were resolved. Home Medications Citalopram [Celexa] 20 mg PO DAILY 09/21/14 Cod Liver Oil 300 mg PO BID 09/21/14 Metoprolol Tartrate [Lopressor (beta kiki)] 50 mg PO BID 09/21/14 Multivitamins,Therapeutic [Multivitamin] 1 tablet PO DAILY 09/21/14 Esomeprazole Mag Trihydrate [Nexium] 20 mg PO DAILY 05/18/19 Tamsulosin HCl 0.4 mg PO DAILY 05/18/19 Apixaban [Eliquis] 5 mg PO BID #60 tab 05/21/19 Cephalexin [Keflex] 500 mg PO Q6 #28 cap 05/21/19 The patient was counseled on the following discharge medications and changes in medications for homegoing were reviewed. The Reason for Use, instructions for use, and potential side effects were reviewed for all new medications. The patient's questions regarding all of their medications were answered. The patient was able to verbally demonstrate an understanding of their discharge medications.
== END 2019-05-21 12:31 | disposition home or self-care (01) | DRG 871 ==
LOC: ED 23:47 → ICU 05-19 00:07 → PCU 05-20 13:28
PROVIDERS: Internal Medicine Critical Care Medicine; Admitting Provider Family Medicine; Emergency Provider Emergency Medicine; PCP Family Medicine; Visit Provider Family Medicine
DX: A41.51 Sepsis due to Escherichia coli [E. coli] (principal); J96.01 Acute respiratory failure with hypoxia; N39.0 Urinary tract infection, site not specified; Z68.42 Body mass index [BMI] 45.0-49.9, adult; R65.20 Severe sepsis without septic shock; N40.0 Benign prostatic hyperplasia without lower urinary tract symptoms; N18.3 Chronic kidney disease, stage 3 (moderate); K21.9 Gastro-esophageal reflux disease without esophagitis; G47.33 Obstructive sleep apnea (adult) (pediatric); R00.1 Bradycardia, unspecified; I48.91 Unspecified atrial fibrillation; I12.9 Hypertensive chronic kidney disease with stage 1 through stage 4 chronic kidney disease, or unspecified chronic kidney disease; E66.01 Morbid (severe) obesity due to excess calories; F32.9 Major depressive disorder, single episode, unspecified; F41.9 Anxiety disorder, unspecified; Z87.891 Personal history of nicotine dependence
CPT/HCPCS: 36415; 36600; 71045; 80048; 80053; 81001; 82803; 83605; 83735; 84484; 85025; 85610; 85730; 87040; 87077; 87086; 87088; 87186; 87633; 87804; 93005; 93306; 94002; 94003; 94640; 94660; 97802; 99285; J7030; J7040; J7050; Q9957; A4216; C8929

== ENCOUNTER → 2019-07-15 12:14 | Outpatient (CLI) | payer MEDICARE, OTHER, SELFPAY ==
[2019-07-02 15:18] VITALS: BMI 48.6
[2019-07-15 18:21] LABS: T4 Total, Thyroxin 9.7 ug/dL (4.5-12.1); Thyroid Stim Hormone (TSH) 0.42 uIU/mL (0.358-3.74)
== END ==
PROVIDERS: Internal Medicine Cardiovascular Disease; PCP Family Medicine; Visit Provider Family Medicine
DX: I48.91 Unspecified atrial fibrillation (principal); I48.92 Unspecified atrial flutter
CPT/HCPCS: 36415; 84436; 84443

== ENCOUNTER → 2019-07-22 06:27 | Outpatient (CLI) | payer MEDICARE, OTHER, SELFPAY ==
[2019-07-02 15:18] VITALS: BMI 48.6
--- NOTE | 2019-07-22 11:16 | STRESSREP ---
Stress Test Report Date: 07-22-2019 Procedure: Pharmacologic stress nuclear imaging study Indications: Atrial fibrillation; shortness of breath/dyspnea Consent: Per the patient Procedure: The patient underwent pharmacologic (Regadenoson) evaluation with a peak heart rate of 81 beats per minute (52 %predicted maximal heart rate) and a peak blood pressure of 150/54 mmHg. The baseline ECG demonstrated sinus bradycardia. The peak pharmacologic ECG demonstrated no obvious ECG changes. There were no cardiac dysrhythmias pretest, during pharmacologic infusion, or recovery. There was no complaint of chest discomfort during pharmacologic infusion or recovery. The examination was discontinued secondary to completion of protocol. Impression: 1. Pharmacologic (Regadenoson) evaluation 2. Peak pharmacologic ECG with no obvious ECG changes. 3. There were no cardiac dysrhythmias pretest, during pharmacologic infusion, or recovery. 4. Nuclear images pending Myocardial perfusion imaging study: Technique: The patient was injected with 15.0 millicuries of technetium 99m Cardiolite and subsequently rest SPECT Cardiolite nuclear imaging was obtained in the horizontal long, vertical long, and short axis views. The patient underwent pharmacologic (Regadenoson) evaluation with a peak heart rate of 81 beats per minute (52 % percent predicted maximal heart rate) and a peak blood pressure of 150/54 mmHg. The patient was injected with 45.0 millicuries of technetium 99m Cardiolite and subsequently stress SPECT Cardiolite nuclear imaging was obtained in the horizontal long, vertical long, and short axis views. A gated Cardiolite study at peak stress was obtained. Interpretation: Rest and stress SPECT Cardiolite nuclear imaging status post realignment, normalization, and attenuation correction demonstrate at rest the appearance of relative uniform tracer uptake and myocardial perfusion appearing within normal limits. Status post stress there is notation of diminished myocardial perfusion/tracer uptake in portions of the mid to distal inferior segments. There is end systolic thickening and brightening. The gated Cardiolite study demonstrates myocardial thickening and inward wall motion. The reported LVEF is 62 %. Impression: 1. Rest and stress SPECT Cardiolite nuclear imaging demonstrate myocardial perfusion changes concerning for an area of stress-induced myocardial ischemia involving portions of the mid to distal inferior segments. 2. The gated Cardiolite study reports an LVEF of 62 %. This note was generated with [employer] software. It may contain incorrect words, spelling, and punctuation that were not noted in checking the note before signing.
== END ==
PROVIDERS: PCP Family Medicine; Referring Provider Internal Medicine Cardiovascular Disease; Visit Provider Internal Medicine Cardiovascular Disease
DX: I48.91 Unspecified atrial fibrillation (principal); R06.02 Shortness of breath
CPT/HCPCS: 78452; 93017; A9500; A4216; J2785

== ENCOUNTER → 2019-07-23 11:43 | Outpatient (CLI) | payer MEDICARE, OTHER, SELFPAY ==
[2019-07-23 10:37] VITALS: BMI 46.5
[2019-07-23 12:31] LABS: Absolute Lymphocyte Count 0.96 X10^3/uL (0.83-4.51); Absolute Neutrophil Count 14.6 X10^3/uL (2.0-7.7); Basophil# 0.06 X10^3/uL; Basophil% 0.4 % (0-1); Eosinophil# 0.08 X10^3/uL; Eosinophils% 0.5 % (0-5); Hematocrit 43.8 % (40-54); Hemoglobin 13.7 g/dL (13.0-16.5); Lymphocyte # 0.96 X10^3/ul (4.0); Lymphocyte % 5.7 % (19-41); Mean Corp Hgb Conc 31.3 g/dL (32-36); Mean Corpuscular Hgb 28.6 pg (27.0-32.0); Mean Corpuscular Volume 91.4 fL (80-94); Monocyte# 1.09 X10^3/uL; Monocyte% 6.4 % (0-10); NRBC Flagged by Analyzer 0 % (0-5); Neutrophil # 14.62 X10^3/uL (2.7-7.7); Neutrophil % 86.1 % (47-70); Platelet Count 310 K/mm3 (150-450); RBC Distribution Width SD 50.7 fl (35.1-43.9); Red Blood Count 4.79 M/mm3 (4.6-6.2)
[2019-07-23 12:42] LABS: International Normalized Ratio 1.4; Partial Thromboplast Time 33.2 Seconds (24.1-36.2); Prothrombin Time (Protime)PT. 16.7 SECONDS (11.7-14.9)
[2019-07-23 12:53] LABS: Anion Gap 8 (5-15); BUN 28 mg/dL (7-18); BUN/Creat Ratio 18.9 RATIO (10-20); Calcium,Total 9.4 mg/dL (8.5-10.1); Chloride 105 mmol/L (98-107); Creatinine, Serum 1.48 mg/dL (0.70-1.30); EST Glomerular Filtration Rate 50 mL/min (>60); Est Glom Filt Rate - Afr Amer 61 mL/min (>60); Glucose 117 mg/dL (74-106); Potassium 4.4 mmol/L (3.5-5.1); Sodium Level 138 mmol/L (136-145)
== END ==
PROVIDERS: PCP Family Medicine; Referring Provider Internal Medicine Cardiovascular Disease; Visit Provider Internal Medicine Cardiovascular Disease
DX: I48.0 Paroxysmal atrial fibrillation (principal); R94.39 Abnormal result of other cardiovascular function study; E78.00 Pure hypercholesterolemia, unspecified; I10 Essential (primary) hypertension; E66.01 Morbid (severe) obesity due to excess calories
CPT/HCPCS: 36415; 80048; 85025; 85610; 85730

== ENCOUNTER → 2019-07-24 14:25 | Outpatient (CLI) | payer MEDICARE, OTHER, SELFPAY ==
[2019-07-23 10:37] VITALS: BMI 46.5
--- NOTE | 2019-07-24 14:28 | RAD_ITS ---
STUDY: X-RAY - LEFT WRIST REASON FOR EXAM: Male, 68 years old. PAIN IN LEFT WRIST, MOSTLY MEDIALLY FOR 1 1/2 WEEKS. NO KNOWN INJURY. TECHNIQUE: 3 view(s) of the wrist were obtained. COMPARISON: None. FINDINGS: There is demineralization of the radius and ulna. Normal radiocarpal articulation. Normal distal radioulnar articulation. There is demineralization of the carpal bones. In addition to intracarpal arthrosis, there is abnormal widening of the scapholunate joint space suggesting ligamentous injury. There is also chondrocalcinosis in the TFCC. There is degenerative arthrosis of the carpometacarpal articulation of the thumb with subluxation and subchondral changes both in the trapezium and first carpal.. Normal second through fifth carpometacarpal articulations. Normal visualized metacarpal bones. No demonstrated fracture. However, wrist fractures in patients of this age can be subtle, if there is strong clinical suspicion of fracture, recommend further evaluation with CT RAD/Wrist min 3 Views IMPRESSION: Polyarticular arthrosis, most pronounced at the base of the thumb where there is subluxation and subchondral changes to the first metacarpal and trapezium Abnormal widening of the scapholunate joint space suggests ligamentous disruption, likely chronic Chondrocalcinosis No demonstrated fracture Electronically Signed: Elías Coronel MD at 16:28 EDT , Service support ,
== END ==
PROVIDERS: PCP Family Medicine; Referring Provider Family Medicine; Visit Provider Family Medicine
DX: M25.532 Pain in left wrist (principal)
CPT/HCPCS: 73110

== ENCOUNTER 2019-07-29 07:59 | Day surgery (SDC) | payer MEDICARE, OTHER, SELFPAY ==
[2019-07-23 10:37] VITALS: BMI 46.5
--- NOTE | 2019-07-23 11:30 | HP_ITS ---
HPI HPI History of Present Illness Surgical H&P: Yes Details: This is a 68-year-old white male with a past history which is included atrial fibrillation/flutter, hypertension, obstructive sleep apnea, and a recent sepsis syndrome who presents for outpatient cardiovascular follow-up appointment following an exercise tolerance test/imaging study. He was at [facility] in May of this year. It appears there were concerns that he had an underlying sepsis syndrome. It was felt this was related to an underlying UTI with E. coli bacteremia. During his hospital stay he apparently had the onset of an atrial fibrillation/flutter that was captured on his monitoring specialist. He had 2 ECGs performed during his hospital stay that were reviewed. They both demonstrated sinus rhythm. According to the medical records he was released home on rate control therapy and anticoagulant therapy. He was not evaluated by cardiology at the time. To the best of his knowledge she has not had atrial fibrillation/flutter in the past. However it does appear he had an ECG that was performed at [facility] in December 2016. According the report he was in atrial fibrillation/flutter at that time. He is unaware of that. He states that appeared to occur during timeframe where he was undergoing evaluation and care for his knee. He does not appear to be aware of any obvious palpitations or rapid heart rates. He has not had near syncope or syncope. He states he does have intermittent left-sided dull chest related twinges . They do not radiate. They do not appear to be associated with other acute symptoms. They come and go. He also has the sensation of chronic shortness of breath. He has attributed this to his history of obstructive sleep apnea and obesity. He follows with Dr. Garvin from pulmonology for his obstructive sleep apnea. He does wear a CPAP device. He did undergo laboratory studies while in the hospital. They do not appear to include thyroid function studies. He did have a transthoracic echocardiogram performed during his hospital stay. The results are as noted below. They were reviewed with him. He recently underwent, based upon his concerns, an exercise tolerance test/imaging study. The results are noted below. They were reviewed with him. Intake Vital Signs 07/23/19 Height 5 ft 9 in 07/23/19 Weight: 315 lb 7 oz 07/23/19 BMI 46.5 07/23/19 BP 120/58 L 05/20/20 Blood Pressure Location Lt brachial 07/23/19 Position Sitting 07/23/19 Respiration 18 07/23/19 Pulse 52 L 07/23/19 Pulse Source Auscultation 07/23/19 BMI 48.6 Intake Visit Reasons: 1 M FU/COMING IN Thread Checker Required: No Accompanied by: Self Allergies bee venom protein (honey bee) Allergy (Verified 07/23/19 10:38) Hives spider venom Adverse Reaction (Verified 07/23/19 10:38) Other [facility] Medical History Atrial fibrillation (Acute) Pure hypercholesterolemia (Chronic) Essential hypertension (Chronic) Viral syndrome (Acute) Severe sepsis (Acute) Anxiety and depression (Chronic) CKD (chronic kidney disease), stage III (Chronic) GERD (gastroesophageal reflux disease) (Chronic) Obstructive sleep apnea (Chronic) Morbid obesity (Chronic) Depression (Chronic) TEODORO (acute kidney injury) (Acute) Septic joint of right knee joint (Acute) Hypertension (Inactive) Surgical History History of total right knee replacement (Resolved) Family History Father Heart disease Diabetes CAD (coronary artery disease) History of coronary artery bypass surgery Cardiac pacemaker in situ Social History (Updated 07/23/19 @ 11:[address] Cornell Burkett MD) Smoking Status: Former smoker alcohol intake: never substance use type: does not use caffeine: Yes Type: tea Number of servings: 2 ROS Const Const: Negative for fatigue, weakness, frequent falls, excessive sweating, weight gain or weight loss Eyes Eyes: Negative for transient loss of vision, blurry vision or change in vision ENT ENT: Negative for dizziness or balance problems Cardio Chest Pain: Yes Character: dull Onset: at rest Location: left chest (twinge) Duration: brief Palpitations: No Edema: Bilateral (bilat pedals) Muscle aches with walking: None Resp Respiratory: Positive for SOB with activity (baseline); negative for SOB at rest GI GI: Negative vomiting or vomiting blood/hematemesis : Negative for hematuria Musc Musc: Negative for muscle aches/ myalgia, muscle weakness, joint pain or balance problems Skin Skin: Negative non-healing lesions or rash Neuro Neuro: Negative for dizziness, lightheadedness, orthostatic symptoms, frequent falls, weakness or blurry vision Jeremiah Hematologic/Lymphatic: Negative for easy bleeding Endo Endo: Negative for fatigue or excessive sweating Psych Psych: Negative for anxiety or depression Allergy Allergy/Immunology: Negative for hives, Negative for rash Cardiology Exam Const Appearance: cooperative, healthy appearing, comfortable, no acute distress, well developed and well groomed Nutritional Appearance: obese Orientation: alert, awake and oriented x3 Head Head: normal to inspection, normocephalic and atraumatic Ears: hearing grossly normal bilaterally Nose: external nose normal Face and Sinus: face symmetric Eyes Eyelids: eyelids normal Conjunctivae: conjunctivae normal Pupils: PERRL EOM: EOM intact bilaterally Neck Neck: normal visual inspection and full ROM Carotids: normal carotid upstroke Chest Chest inspection: normal inspection of the chest, symmetric chest movement and normal respiratory effort Auscultation: Bilateral: Clear to Auscultation Cardio Palpation: normal PMI Rate: regular rate Rhythm: regular rhythm Heart sounds: S1 normal and S2 normal GI GI: normal to inspection, soft, bowel sounds present and obese Neuro General: alert, awake, oriented x3 and moves all extremities Skin Skin: no rashes or lesions noted Extremities Pulses: Normal: Right Radial Pulse, Left Radial Pulse Lower Extremity Edema: None: Bilateral Psych Psychological: normal affect Assessment & Plan 1. Abnormal cardiovascular stress test R94.39 Plan He does have an abnormal cardiovascular stress test/stress nuclear imaging study. This does raise concern of underlying CAD with myocardial ischemia. However a false positive study based upon his body habitus cannot necessarily be excluded. At the present time it was recommended he proceed with further evaluation with diagnostic cardiac catheterization. The procedures were discussed with him. He was agreeable to this approach. In preparation for this he will initiate medical management with aspirin 81 mg p.o. daily and clopidogrel/Plavix 75 mg p.o. daily. He will place his apixaban/Eliquis on temporary hold. He will continue his other medications. Orders Orders: Left Heart Cath/COR/LV Percut Today Basic Metabolic Profile (BMP) Today Partial Thromboplast Time Today Prothrombin Time w/INR Today CBC W/Diff, Automated Today 2. Paroxysmal atrial fibrillation I48.0 Plan He does have a history of paroxysmal atrial fibrillation. He had an ECG in the office today. In the office today he was noted to be in sinus rhythm/sinus bradycardia with a first-degree AV block. He had no acute changes. He will continue medical management and adjustment as deemed appropriate. Orders Orders: Left Heart Cath/COR/LV Percut Today Basic Metabolic Profile (BMP) Today Partial Thromboplast Time Today Prothrombin Time w/INR Today CBC W/Diff, Automated Today 3. Pure hypercholesterolemia E78.00 Plan He does have a history of hyperlipidemia. He states his PCP is contemplating putting him on lipid-lowering medication. If he does have underlying CAD then he should be considered for lipid-lowering medication in addition to dietary adjustment and activity. Orders Orders: Left Heart Cath/COR/LV Percut Today Basic Metabolic Profile (BMP) Today Partial Thromboplast Time Today Prothrombin Time w/INR Today CBC W/Diff, Automated Today 4. Essential hypertension I10 Plan His blood pressure appears to be under reasonably good control at this time. He will continue medical management. Orders Orders: 12 Lead EKG performed by BMS Today Left Heart Cath/COR/LV Percut Today Basic Metabolic Profile (BMP) Today Partial Thromboplast Time Today Prothrombin Time w/INR Today CBC W/Diff, Automated Today 5. Morbid obesity E66.01 Plan Unfortunately he is morbidly obese. He has been counseled in the past on dietary adjustment and activity to try and bring his obesity under better control to. Orders Orders: Left Heart Cath/COR/LV Percut Today Basic Metabolic Profile (BMP) Today Partial Thromboplast Time Today Prothrombin Time w/INR Today CBC W/Diff, Automated Today Plan Detail Other Orders Orders: 12 Lead EKG performed by BMS Today I48.91 Other Medications New: aspirin 81 mg PO DAILY 1 tab 0RF clopidogrel (Plavix) 4 tablets by mouth on day 1 then 1 tablet by mouth daily 75 mg PO DAILY 30 tabs 1RF On Hold: apixaban Hold Comment: Order Changed 5 mg PO BID 180 tabs 3RF Additional Comments The above was discussed with him. He is agreeable to this approach. Thank you for allowing me to participate in the care of your patient. Please don't hesitate to call if any issues arise. This note was generated using a voice recognition system and there may be incorrect words, spelling or punctuation that were not noted when reviewing the office note prior to saving. Time spent in the patient's evaluation/care/medical decision making process: 30 minutes. Follow Up 6 Months (PFM) Coding Level of Care Code Off vis,est,level 4 Diagnoses Abnormal cardiovascular stress test R94.39 Paroxysmal atrial fibrillation I48.0 ??Atrial fibrillation type: paroxysmal Pure hypercholesterolemia E78.00 Essential hypertension I10 Morbid obesity E66.01 Time Spent (min) 30 Comment 62942 Coding Level of Care Code Off vis,est,level 4 Diagnoses Abnormal cardiovascular stress test R94.39 Paroxysmal atrial fibrillation I48.0 ??Atrial fibrillation type: paroxysmal Pure hypercholesterolemia E78.00 Essential hypertension I10 Morbid obesity E66.01 Time Spent (min) 30 Comment [id number] Supplemental Info Supplemental Information Echocardiogram: 05-19-2019 Interpretation Summary Normal LV size. Left ventricular systolic function is normal. The estimated ejection fraction is 65 %. Stage 2 diastolic dysfunction. Contrast injection was performed. Stress Test Report Date: 07-22-2019 Procedure: Pharmacologic stress nuclear imaging study Indications: Atrial fibrillation; shortness of breath/dyspnea Consent: Per the patient Procedure: The patient underwent pharmacologic (Regadenoson) evaluation with a peak heart rate of 81 beats per minute (52 %predicted maximal heart rate) and a peak blood pressure of 150/54 mmHg. The baseline ECG demonstrated sinus bradycardia. The peak pharmacologic ECG demonstrated no obvious ECG changes. There were no cardiac dysrhythmias pretest, during pharmacologic infusion, or recovery. There was no complaint of chest discomfort during pharmacologic infusion or recovery. The examination was discontinued secondary to completion of protocol. Impression: 1. Pharmacologic (Regadenoson) evaluation 2. Peak pharmacologic ECG with no obvious ECG changes. 3. There were no cardiac dysrhythmias pretest, during pharmacologic infusion, or recovery. 4. Nuclear images pending Myocardial perfusion imaging study: Technique: The patient was injected with 15.0 millicuries of technetium 99m Cardiolite and subsequently rest SPECT Cardiolite nuclear imaging was obtained in the horizontal long, vertical long, and short axis views. The patient underwent pharmacologic (Regadenoson) evaluation with a peak heart rate of 81 beats per minute (52 % percent predicted maximal heart rate) and a peak blood pressure of 150/54 mmHg. The patient was injected with 45.0 millicuries of technetium 99m Cardiolite and subsequently stress SPECT Cardiolite nuclear imaging was obtained in the horizontal long, vertical long, and short axis views. A gated Cardiolite study at peak stress was obtained. Interpretation: Rest and stress SPECT Cardiolite nuclear imaging status post realignment, normalization, and attenuation correction demonstrate at rest the appearance of relative uniform tracer uptake and myocardial perfusion appearing within normal limits. Status post stress there is notation of diminished myocardial perfusion/tracer uptake in portions of the mid to distal inferior segments. There is end systolic thickening and brightening. The gated Cardiolite study demonstrates myocardial thickening and inward wall motion. The reported LVEF is 62 %. Impression: 1. Rest and stress SPECT Cardiolite nuclear imaging demonstrate myocardial perfusion changes concerning for an area of stress-induced myocardial ischemia involving portions of the mid to distal inferior segments. 2. The gated Cardiolite study reports an LVEF of 62 %. Labs LDL Cholesterol 125 mg/dL (0-130) 05/13/19 HDL Cholesterol 42 mg/dL (40-) 05/13/19 Triglycerides 124 mg/dL (-199) 05/13/19 VLDL Cholesterol 25 mg/dL (5-40) 05/13/19 Diagnostics Electrocardiogram 07/23/19 Echocardiogram 05/19/19 Stress Test Nuclear Medicine 07/22/19 Stress Test 07/22/19 Chest X-Ray 05/19/19 07/23/19 1130 <Electronically signed by Cornell Burkett MD> Date Cornell uBrkett MD I have re-examined the patient. There are no clinical changes since date of exam.
[2019-07-24 07:54] LABS: Bacteria 0 SEEN /hpf (None Seen); Mucous, Urine 0 SEEN /hpf (<or=2+); Red Blood Cells-Urine 0 SEEN /hpf (0-5); Squamous Epithelial Cells - UA 0 SEEN /hpf (0-5)
--- NOTE | 2019-07-24 08:01 | RAD_ITS ---
STUDY: X-RAY CHEST REASON FOR EXAM: Male, 68 years old. SOB. PRE-HEART CATH. TECHNIQUE: PA and lateral views of the chest. COMPARISON: May 19, 2019. FINDINGS: Cardiac silhouette unremarkable. Pulmonary vascularity unremarkable. Aorta unremarkable. No focal patchy airspace opacities. No pleural effusions. Upper abdomen unremarkable. Osseous structures intact with degenerative features. No pneumothorax. RAD/Chest PA and Lateral IMPRESSION: No acute cardiopulmonary findings Electronically Signed: Gideon Neely DO at 9:01 EDT Tel , Service support ,
[2019-07-24 08:20] LABS: Color, Urine Yellow (Yellow); Glucose, Dipstick Normal (Normal); Ketone-Dipstick Negative (Negative); Leukocyte Esterase-Dipstick 500 /ul (Negative); Nitrite-Dipstick Negative (Negative); Occult Blood-Urine 10 /ul (Negative); Protein-Dipstick Negative (Negative); Specific Gravity, Urine 1.015 (1.002-1.030); Urine Bilirubin Dipstick Negative (Negative); Urine Clarity Clear (Clear); Urine Urobilinogen Normal (Normal)
[2019-07-24 08:56] LABS: White Blood Cells 5-10 SEEN /hpf (0-5)
[2019-07-25 14:33] VITALS: BMI 46.5
--- NOTE | 2019-07-29 10:54 | CL.D_ITS ---
Patient Name: GUSTAVO HARTMAN Study Date: 07/29/2019 Performing: Cornell Burkett MD Ht: 68.89 inches 175 cm : 1950 Wt: 315.26 lbs 143 kg Age: 68 Gender: male BSA: 2.5 PROCEDURE(S) PERFORMED UA49-FRX/COR/LV CLINICAL PROFILE AND INDICATIONS Indications: Suspected CAD, Cardiac Arrythmia Heart Failure: None Stress/Imaging Date: 07/22/2019Stress Test with SPECT MPI: Positive Angina Classification Anginal Classification w/in 2 Weeks: CCS II CAD Presentations: Other: chest pain / shortness of breath CONCLUSIONS Elevated Left Ventricular End Diastolic Pressure Normal LV size, wall motion,and systolic function LVEF: by LV gram 55 % [place] Multivessel CAD Right to Right and Left to Right Collateral Flow RECOMMENDATIONS Risk factor modification Medical therapy Depending upon the patients clinical course may consider referral to a tertiary care center for ADVERTISING ASSISTANT e valuation DESCRIPTION OF PROCEDURE The patient arrived to the procedure lab. The risks and benefits of the procedure as well as a full d escription of our services here and current unavailability of surgical backup were fully explained to the patient and/or their significant other prior to the catheterization. The Timeout was completed, verifying the correct patient and procedure. The patient's procedural site was prepped and draped in the usual fashion. Local anesthetic was given subcutaneously to right radial region with Lidocaine 2% . Using a modified Seldinger technique, arterial access was obtained via the right radial artery, a 6 Fr sheath was inserted. Left Coronary Artery selective angiography was performed in multiple views u sing a 5 Fr. 4.0 [place] catheter. Right Coronary Artery selective angiography was then performed in mu ltiple views using a 5 Fr. 4.0 [place] catheter. Left Ventriculography was performed in [place]IEGA projection using a 5 Fr. [place] catheter. LV to AO pullback pressures were then recorded.The arterial sheath was pulled and a TR Band was applied for hemostasis, 11cc of air placed in the TR ban d. CORONARY ANGIOGRAPHY DOMINANCE: Right Dominant LEFT HEART ASSESSMENT Left Ventricular Ejection Fraction: by LV Gram 55 % Normal LV wall motion Elevated Left Ventricular End Diastolic Pressure LVEDP: 35 mmHg LEFT MAIN: Angiographically normal LEFT ANTERIOR DESCENDING ARTERY: Mild luminal irregularities PROX LAD: 10 - 25 % Stenosis CIRCUMFLEX ARTERY: Mild luminal irregularities RIGHT CORONARY ARTERY: PROX RCA: diffuse: eccentric: 25 % Stenosis MID RCA: is occluded DISTAL RCA: fills from bridging collaterals and left to right collateral flow COLLATERAL FLOW: Collateral flow from Right to Right Collateral flow from Left to Right AORTIC ROOT: Angiographically normal COMPLICATIONS No Complications PROCEDURE MEDICATIONS Versed 1 mg IV Fentanyl 50 mcg IV Oxygen: 2 L/min via nasal cannula Heparin diluted in 23cc Heparinized saline. Patient given 10cc IA of this solution. 07/29/2019 09:43: 24 SUMMARY OF HEMODYNAMIC DATA Time AIR REST ECG 08:35:10 AO 136/87 (105) SA 09:45:08 LV 170/15, 43 09:54:02 LV 172/13, 40 09:54:08 LV 166/5, 35 09:54:34 LV 160/6, 34 09:55:38 LVp 164/6, 46 09:55:46 AOp 161/72 (104) 09:55:51 AO 169/75 (108) 09:59:13 Signed By Cornell Burkett MD On 07/29/2019 10:52:50 AM Cornell Burkett MD
== END 2019-07-29 12:00 | disposition home or self-care (01) ==
PROVIDERS: PCP Family Medicine; Referring Provider Internal Medicine Cardiovascular Disease; Visit Provider Internal Medicine Cardiovascular Disease
DX: R94.39 Abnormal result of other cardiovascular function study (principal); R07.9 Chest pain, unspecified; R06.02 Shortness of breath; I12.0 Hypertensive chronic kidney disease with stage 5 chronic kidney disease or end stage renal disease; N18.3 Chronic kidney disease, stage 3 (moderate); I48.0 Paroxysmal atrial fibrillation; I48.92 Unspecified atrial flutter; G47.33 Obstructive sleep apnea (adult) (pediatric); E66.01 Morbid (severe) obesity due to excess calories; E78.00 Pure hypercholesterolemia, unspecified; F41.9 Anxiety disorder, unspecified; F32.9 Major depressive disorder, single episode, unspecified; K21.9 Gastro-esophageal reflux disease without esophagitis; Z87.891 Personal history of nicotine dependence; Z79.899 Other long term (current) drug therapy
CPT/HCPCS: 71046; 73110; 81001; 87086; 93458; 99152; 99153; J7040; C1769; C1894; Q9967

== ENCOUNTER → 2019-12-08 12:12 | Outpatient (CLI) | payer MEDICARE, OTHER, SELFPAY ==
[2019-07-25 14:33] VITALS: BMI 46.5
[2019-12-08 15:26] LABS: Absolute Lymphocyte Count 1.22 X10^3/uL (0.83-4.51); Absolute Neutrophil Count 9.5 X10^3/uL (2.0-7.7); Basophil# 0.03 X10^3/uL; Basophil% 0.2 % (0-1); Eosinophil# 0.27 X10^3/uL; Eosinophils% 2.1 % (0-5); Hematocrit 40.9 % (40-54); Hemoglobin 12.6 g/dL (13.0-16.5); Lymphocyte # 1.22 X10^3/ul (4.0); Lymphocyte % 9.7 % (19-41); Mean Corp Hgb Conc 30.8 g/dL (32-36); Mean Corpuscular Hgb 28.3 pg (27.0-32.0); Mean Corpuscular Volume 91.9 fL (80-94); Mean Platelet Vol. 11.2 fl (6.2-12.0); Monocyte# 1.57 X10^3/uL; Monocyte% 12.4 % (0-10); NRBC Flagged by Analyzer 0 % (0-5); Neutrophil # 9.48 X10^3/uL (2.7-7.7); Neutrophil % 75.2 % (47-70); POSITIVE DIFFERENTIAL YES; Platelet Count 278 K/mm3 (150-450); RBC Distribution Width CV 14.9 % (11.6-14.6); RBC Distribution Width SD 50.8 fl (35.1-43.9); Red Blood Count 4.45 M/mm3 (4.6-6.2); White Blood Count 12.6 K/mm3 (4.4-11.0)
[2019-12-08 15:27] LABS: Differential Indicated SCAN CRITERIA MET
[2019-12-08 15:33] LABS: Uric Acid 8.1 mg/dL (3.5-7.2)
[2019-12-08 16:03] LABS: Differential Comment SCANNED
[2019-12-09 15:10] LABS: Pathologist Review Reviewed
== END ==
PROVIDERS: PCP Family Medicine; Visit Provider Family Medicine
DX: M10.9 Gout, unspecified (principal)
CPT/HCPCS: 36415; 84550; 85025

== ENCOUNTER → 2019-12-25 12:03 | Outpatient (CLI) | payer MEDICARE, OTHER, SELFPAY ==
[2019-07-25 14:33] VITALS: BMI 46.5
--- NOTE | 2019-12-25 12:05 | RAD_ITS ---
STUDY: X-RAY - RIGHT ANKLE REASON FOR EXAM: Male, 69 years old. PAIN, SWELLING AND REDNESS IN RIGHT ANKLE. NO KNOWN INJURY. PATIENT HAS A HX OF GOUT BEFORE. TECHNIQUE: 3 view(s) of the ankle. COMPARISON: None. FINDINGS: Normal visualized distal tibia and fibula. Normal medial and lateral malleoli. Normal tibiotalar articulation and ankle mortise. Normal visualized talus and calcaneus. The visualized subtalar, talonavicular, calcaneocuboid and tarsal articulations are normal. The soft tissue structures are unremarkable. RAD/Ankle min 3 Views IMPRESSION: Normal x-ray examination of the ankle. Electronically Signed: Rufus Fischer DO at 10:30 EDT Tel , Service support ,
== END ==
PROVIDERS: PCP Family Medicine; Referring Provider Family Medicine; Visit Provider Family Medicine
DX: M10.9 Gout, unspecified (principal)
CPT/HCPCS: 73610

== ENCOUNTER 2020-01-31 19:46 | Emergency (ER) | payer MEDICARE, OTHER, SELFPAY ==
[2020-01-26 09:39] VITALS: BMI 45.6
[2020-01-31 19:46] VITALS: BP 153/82; PULSE 74; RESP 16; TEMP 36.7; O2SAT 97; BMI 45.1
--- NOTE | 2020-01-31 20:02 | EKG12_ITS ---
Test Reason : EDEMA Blood Pressure : / mmHG Vent. Rate : 069 BPM Atrial Rate : 069 BPM P-R Int : 206 ms QRS Dur : 082 ms QT Int : 382 ms P-R-T Axes : 066 054 060 degrees QTc Int : 409 ms Normal sinus rhythm Normal ECG Confirmed by EDUARDO LENZ, HERMAN ([id number]), editor farm journal SAMIR RAMIREZ ([id number]) on 02/03/2020 9:15:03 AM Referred By: JAMARI Confirmed By:HERMAN CLARK MD
--- NOTE | 2020-01-31 20:04 | ED.VISSUMM ---
- ER Visit Summary Date of Service: 01/31/20 Chief Complaint: Swelling History of Present Illness: The patient is a [address] Colon and Dr. Burkett. He reports he has swelling of his right hand that began 3 days ago. Is now spread to his left hand both ankles. Complains of a sharp pain to his right hand up to his elbow that is 10 out of 10 in severity. It is increased with movement. He denies any recent trauma. No fall, MVA, or change in activity. Patient reports he has had this similar symptoms in the past with allergic reactions. States that he saw his primary care physician 2 days ago and was given a shot of steroids. He is unsure whether or not this was Kenalog. Patient denies any chest pain or shortness of breath. He denies fever, chills, nausea, vomiting, or other constitutional symptoms. Physical Examination: Vitals: Stable. Afebrile. General: Well-nourished and well-developed. Head: Normocephalic atraumatic. Neck: Supple, no lymphadenopathy. No JVD. Nontender. Cardiovascular: Regular rate and rhythm. No murmurs. Respiratory: No respiratory distress. Clear to auscultation bilaterally. Abdominal: Soft, nontender, nondistended, normal bowel sounds. No guarding, rebound, or peritoneal signs. Back: Nontender. Extremities: 1+ pitting edema lower extremities bilaterally. He has 2+ pitting edema of his right hand. There is severe tenderness palpation over the dorsum of his hand diffusely. There is not seem to be one joint that is the source of discomfort. There is no erythema, warmth, or fluctuance. He has a 2+ radial pulse. He has less than 2-second capillary refill. Mild swelling of his left hand as well. Skin: Normal color, no rash. Neurologic: Alert and oriented ?3. Cranial nerves II through XII are intact. Normal strength and sensation. Psych: Normal affect. Test Results: EKG is sinus at [address] changes and artifact. CBC shows a white count of 13.1 however, he got what I suspect is a shot of Kenalog 2 days ago. His white count was 12.6 last month and 17 in July. Hemoglobin is 12.3. Segment neutrophils 77 lymphocytes of 7 and monocytes of 15. Emergency Department Course and Treatment: Patient refused an x-ray of his hand stating that he has not had any trauma. He was given morphine and Zofran IV. He is resting more comfortably. I did review his chart. He had a heart catheterization in July of this year that showed an ejection fraction of 55% and a chronically occluded mid RCA. I discussed the patient possibility of gout. He reports that this is different than the pain he is had from gout in the past 90s had 3 exacerbations this year. Treatment Plan: At this time I do not have an explanation for the patient's pain. He does not seem to have a septic joint, cellulitis, or an abscess. I do not think that this is cardiac in etiology as the swelling is predominantly in his right hand. I do not think that he has a clot as he is on Eliquis and has been compliant with this. He will be discharged with [place] for pain and instructed to follow-up with Dr. Colon in 2 days for another exam. Return to the emergency department for any worsening symptoms. Disposition: To home in improved and stable condition. Impression: 1. Right hand edema/pain, uncertain cause. 2. Coagulopathy on Eliquis. 3. Leukocytosis. 4. Chronic renal insufficiency. This note was generated with [employer] dictation software. It may contain incorrect words, spelling, and punctuation that were not noted in review of the chart prior to signing ED Disposition - Plan for ED Patient: Instructions: ED JOINT PAIN Prescriptions: Hydrocodone Bitart/Apap 5-325 [[place] 5MG-325MG] 1 tablet PO Q4H PRN PRN 2 Days #10 tablet PRN Reason: Pain Referrals: Ziyad Colon MD [Primary Care Provider] - 2 Days
--- NOTE | 2020-01-31 20:17 | EKG12_ITS ---
Test Reason : EDEMA Blood Pressure : / mmHG Vent. Rate : 067 BPM Atrial Rate : 067 BPM P-R Int : 000 ms QRS Dur : 082 ms QT Int : 396 ms P-R-T Axes : 000 060 064 degrees QTc Int : 418 ms Normal Sinus Rhythm Abnormal ECG When compared with ECG of 21-MAY-2019 03:40, Junctional rhythm has replaced Sinus rhythm Confirmed by KETTY LENZ, HELENA ([id number]), material expeditor KHANH HOBBS ([id number]) on 02/06/2020 4:09:14 PM Referred By: JAMARI Confirmed By:KAYLEE HDEZ MD
[2020-01-31] MEDS: Morphine 4 MG/ML Syringe IV (20:33)
[2020-01-31] MEDS: Ondansetron 4 MG/2 ML Vial IV (20:33)
[2020-01-31 20:34] LABS: Absolute Lymphocyte Count 0.91 X10^3/uL (0.83-4.51); Basophil# 0.03 X10^3/uL; Basophil% 0.2 % (0-1); Eosinophil# 0.08 X10^3/uL; Eosinophils% 0.6 % (0-5); Hematocrit 38.8 % (40-54); Hemoglobin 12.3 g/dL (13.0-16.5); Lymphocyte # 0.91 X10^3/ul (4.0); Mean Corp Hgb Conc 31.7 g/dL (32-36); Mean Corpuscular Hgb 29.3 pg (27.0-32.0); Mean Corpuscular Volume 92.4 fL (80-94); Mean Platelet Vol. 11.4 fl (6.2-12.0); Monocyte# 1.97 X10^3/uL; Monocyte% 15.1 % (0-10); NRBC Flagged by Analyzer 0 % (0-5); Neutrophil # 10.01 X10^3/uL (2.7-7.7); Neutrophil % 76.6 % (47-70); POSITIVE DIFFERENTIAL YES; Platelet Count 266 K/mm3 (150-450); RBC Distribution Width CV 16.2 % (11.6-14.6); RBC Distribution Width SD 53.7 fl (35.1-43.9); White Blood Count 13.1 K/mm3 (4.4-11.0)
[2020-01-31 20:35] LABS: Differential Indicated SCAN CRITERIA MET
[2020-01-31 20:52] LABS: Anion Gap 6 (5-15); BUN 16 mg/dL (7-18); BUN/Creat Ratio 10.8 RATIO (10-20); Calcium,Total 9.1 mg/dL (8.5-10.1); Chloride 106 mmol/L (98-107); Creatinine, Serum 1.48 mg/dL (0.70-1.30); EST Glomerular Filtration Rate 50 mL/min (>60); Est Glom Filt Rate - Afr Amer 61 mL/min (>60); Estimated Creatinine Clearance 48.43 ml/min; Glucose 134 mg/dL (74-106); Potassium 4.4 mmol/L (3.5-5.1); Sodium Level 138 mmol/L (136-145)
[2020-01-31 20:57] LABS: BNP,B-Type NATRIURETIC PEPTIDE 39.9 pg/mL (0-100)
[2020-01-31 21:21] LABS: Anisocytosis RARE; Macrocytosis RARE; Platelet Estimate ADEQUATE (ADEQ); Red Cell Morphology N CHROM NORMAL (NORM C&C)
[2020-01-31 21:25] VITALS: BP 147/47; PULSE 66; RESP 16; TEMP 37.2; O2SAT 95
[2020-02-02 13:04] LABS: Pathologist Review Reviewed
== END 2020-01-31 21:40 | disposition home or self-care (01) ==
LOC: ED 21:15
PROVIDERS: Emergency Provider Emergency Medicine; PCP Family Medicine
DX: M79.641 Pain in right hand (principal); R60.0 Localized edema; D68.9 Coagulation defect, unspecified; D72.829 Elevated white blood cell count, unspecified; N18.9 Chronic kidney disease, unspecified; I25.10 Atherosclerotic heart disease of native coronary artery without angina pectoris; Z79.01 Long term (current) use of anticoagulants
CPT/HCPCS: 80048; 83880; 84484; 85025; 93005; 96374; 96375; 99285; A4216; J2405

== ENCOUNTER 2020-02-03 10:11 | Inpatient (IN) | payer MEDICARE, OTHER, SELFPAY ==
[2020-02-03] VITALS (7 sets, daily range): BP systolic 133–150; BP diastolic 46–64; PULSE 60–70; RESP 15–20; TEMP 36.8–37.2; O2SAT 93–96; BMI 45.6
--- NOTE | 2020-02-03 10:28 | ED.DCSUM_ITS ---
- ER Visit Summary Date of Service: 02/03/20 Chief Complaint: [Swelling to arms and legs] History of Present Illness: The patient is a 69 M [presents to the emergency department with pain and swelling to his arms and legs that started out 6 days ago. Patient was seen by his primary care physician initially and given a steroid shot as it was believed at that time he may have gout. Patient states that he has had 5 flareups of gout in the last 6 months. Patient subsequently was seen in the emergency department 4 days ago and had blood work and was medicated for his pain. He was sent home with [employer] which is taken the edge off. Patient continues to complain of severe pain in his right arm and his left foot and is having hard time walking secondary to pain. Patient denies any difficulty with urine or decreased urine output. He denies any shortness of breath. He denies fevers. He denies recent illness. He denies any exposures to COVID-19.] Physical Examination: [HEENT-PERRLA, EOMI. Cranial nerves II through XII grossly intact. TMs clear. Mucous membranes moist. No adenopathy. Cardiovascular-regular rate and rhythm without murmur or ectopy Lungs-clear to auscultation, chest wall stable without crepitus or subcu emphysema Abdomen-normoactive bowel sounds, soft, nontender, no rebound or rigidity, no peritoneal signs. Extremities-intact ?4, normal range of motion, normal pulses, atraumatic. Patient has diffuse edema of the right upper extremity from the hand to the elbow. Patient has pain with range of motion at the wrist. Slightly warm to the touch at the wrist. Patient has limited range of motion of the finger secondary to pain. Patient also has some faint erythema at the dorsum of the left foot with edema noted. Neurovascular intact.] Test Results: [CBC with differential obtained showed a white count 12.6, hemoglobin 1.7, hematocrit 37, platelet 286. Chemistries unremarkable. Sed rate was elevated at 102. C-reactive protein was 205.] Emergency Department Course and Treatment: [IV line established on arrival. IV was very difficult to establish and patient required multiple IV sticks. Patient was given 4 mg of morphine and 4 mg of Zofran.] I suspect patient symp toms likely related to gout. I do not feel patient has septic joints. Treatment Plan: [Admit] Disposition: [Admit] Impression: [Intractable pain Gouty arthropathy] This note was generated with [employer] dictation software. It may contain incorrect words, spelling, and punctuation that were not noted in review of the chart prior to signing ED Disposition - Plan for ED Patient: Referrals: Ziyad Colon MD [Primary Care Provider] -
[2020-02-03 11:30] LABS: Erythrocyte Sedimentation Rate 102 mm/hr (0-20)
[2020-02-03 11:40] LABS: Eosinophils% 0.8 % (0-5); NRBC Flagged by Analyzer 0 % (0-5); POSITIVE COUNT YES; POSITIVE DIFFERENTIAL YES
[2020-02-03 11:41] LABS: Differential Indicated SCAN CRITERIA MET
[2020-02-03] MEDS: Morphine 4 MG/ML Syringe IV ×2 (12:18→16:24)
[2020-02-03] MEDS: Ondansetron 4 MG/2 ML Vial IV (12:19)
[2020-02-03] MEDS: 0.9% Normal Saline 1,000 ML 150 ML IV (12:19)
[2020-02-03 12:25] LABS: Platelet Morphology CLUMPED
[2020-02-03 12:27] LABS: Platelet Estimate ADEQUATE (ADEQ)
[2020-02-03 12:35] LABS: Absolute Lymphocyte Count 0.78 X10^3/uL (0.83-4.51); Basophil# 0.03 X10^3/uL; Basophil% 0.2 % (0-1); Hematocrit 36.6 % (40-54); Hemoglobin 11.8 g/dL (13.0-16.5); Lymphocyte # 0.78 X10^3/ul (4.0); Lymphocyte % 6.2 % (19-41); Mean Corp Hgb Conc 32.2 g/dL (32-36); Mean Corpuscular Hgb 29.1 pg (27.0-32.0); Mean Corpuscular Volume 90.1 fL (80-94); Mean Platelet Vol. 10.6 fl (6.2-12.0); Monocyte# 1.56 X10^3/uL; Monocyte% 12.5 % (0-10); Neutrophil # 9.97 X10^3/uL (2.7-7.7); Neutrophil % 79.9 % (47-70); RBC Distribution Width CV 15.9 % (11.6-14.6); RBC Distribution Width SD 52.4 fl (35.1-43.9); Red Blood Count 4.06 M/mm3 (4.6-6.2); White Blood Count 12.5 K/mm3 (4.4-11.0)
[2020-02-03 12:38] LABS: Platelet Count 317 K/mm3 (150-450)
[2020-02-03 12:53] LABS: Anion Gap 5 (5-15); BUN 20 mg/dL (7-18); BUN/Creat Ratio 15.5 RATIO (10-20); Calcium,Total 9.3 mg/dL (8.5-10.1); Chloride 107 mmol/L (98-107); Creatinine, Serum 1.29 mg/dL (0.70-1.30); EST Glomerular Filtration Rate 59 mL/min (>60); Est Glom Filt Rate - Afr Amer 71 mL/min (>60); Estimated Creatinine Clearance 55.57 ml/min; Glucose 95 mg/dL (74-106); Potassium 4.1 mmol/L (3.5-5.1); Sodium Level 138 mmol/L (136-145)
--- NOTE | 2020-02-03 13:34 | MRI_ITS ---
STUDY: MRI RIGHT HAND REASON FOR EXAM: Male, 69 years old. RIGHT hand and wrist swelling/ redness, concern for abscess in MTC area, hx of gout, bilat hand and foot swelling TECHNIQUE: Standardized fat and water weighted pulse sequences were obtained in all 3 orthogonal planes. COMPARISON: X-ray 02/03/2020. FINDINGS: This study is extremely limited due to patient motion on all pulsing sequences. There is marked subcutaneous edema, greater dorsally. There is no demonstrated collection. Mild marrow edema is noted in the carpal bones, most consistent with early degenerative change. Joint space narrowing and spurring of the 1st carpometacarpal joint. Trace marrow edema in the metacarpal heads. Mild erosions in the 5th metacarpal head may represent erosive arthritis. No demonstrated soft tissue mass to indicate gout. No significant joint effusion. Flexor and extensor tendons are grossly intact. No obvious tear. MRI/Upper Ext/No Jt/ wo IMPRESSION: 1. Extremely limited study due to patient motion. 2. Marked soft tissue edema without organized collection. 3. Question erosive arthritis of the 5th metacarpal head. 4. Mild degenerative changes of the carpal bones and 2nd through 4th metacarpal heads and the 1st carpometacarpal joint. Electronically Signed: Christiana Cunningham MD at 17:29 EST Tel , Service support ,
--- NOTE | 2020-02-03 14:58 | NURSING ---
Pt went to MRI per the traveling secretary.
--- NOTE | 2020-02-03 15:30 | RAD_ITS ---
STUDY: X-RAY - RIGHT HAND REASON FOR EXAM: Male, 69 years old. right hand/wrist pain and swelling TECHNIQUE: 3 view(s) of the wrist were obtained. COMPARISON: None. FINDINGS: X-RAY WRIST: Moderate spurring of the distal radioulnar joint. Widening of the scapholunate interval. Degenerative cystic changes in the scaphoid and capitate bones. Erosive changes of the 1st carpometacarpal joint including subchondral cystic changes. Marked spurring of the trapezium. X-RAY HAND: Limited due to flexion of the hand with superimposition of the digits. Moderate spurring of the distal radioulnar joint. Degenerative cystic changes in the scaphoid and capitate bones. Erosive changes of the 1st carpometacarpal joint with subchondral cystic changes. Marked spurring of the trapezium. Periosteal reaction of the 5th metacarpal shaft. Erosive changes of the 2nd through 5th metacarpal heads and the base of the 5th proximal phalanx. Question healing fracture of the 5th metacarpal head. Degenerative spurring of the interphalangeal joint of the thumb. Degenerative spurring of the distal interphalangeal joint of the 3rd digit. RAD/Hand Min 3 Views IMPRESSION: 1. Mild degenerative arthrosis of the wrist, detailed above. 2. Erosive changes of the 2nd through 5th metacarpal heads suspicious for inflammatory arthritis. 3. Periosteal reaction of the 5th metacarpal shaft with question of healing fracture of the 5th metacarpal head. 4. Degenerative changes of the interphalangeal joint of the thumb and DIP joint of the 3rd digit. Electronically Signed: Christiana Cunningham MD at 17:48 EST Tel , Service support ,
--- NOTE | 2020-02-03 15:30 | RAD_ITS ---
STUDY: X-RAY - RIGHT WRIST REASON FOR EXAM: Male, 69 years old. right hand/wrist pain and swelling TECHNIQUE: 3 view(s) of the wrist were obtained. COMPARISON: None. FINDINGS: X-RAY WRIST: Moderate spurring of the distal radioulnar joint. Widening of the scapholunate interval. Degenerative cystic changes in the scaphoid and capitate bones. Erosive changes of the 1st carpometacarpal joint including subchondral cystic changes. Marked spurring of the trapezium. X-RAY HAND: Limited due to flexion of the hand with superimposition of the digits. Moderate spurring of the distal radioulnar joint. Degenerative cystic changes in the scaphoid and capitate bones. Erosive changes of the 1st carpometacarpal joint with subchondral cystic changes. Marked spurring of the trapezium. Periosteal reaction of the 5th metacarpal shaft. Erosive changes of the 2nd through 5th metacarpal heads and the base of the 5th proximal phalanx. Question healing fracture of the 5th metacarpal head. Degenerative spurring of the interphalangeal joint of the thumb. Degenerative spurring of the distal interphalangeal joint of the 3rd digit. RAD/Wrist min 3 Views IMPRESSION: 1. Mild degenerative arthrosis of the wrist, detailed above. 2. Erosive changes of the 2nd through 5th metacarpal heads suspicious for inflammatory arthritis. 3. Periosteal reaction of the 5th metacarpal shaft with question of healing fracture of the 5th metacarpal head. 4. Degenerative changes of the interphalangeal joint of the thumb and DIP joint of the 3rd digit. Electronically Signed: Christiaan Cunningham MD at 17:48 EST Tel , Service support ,
[2020-02-03] MEDS: 0.9% Normal Saline 1,000 ML 100 ML IV (15:51)
[2020-02-03] MEDS: 0.9% Saline Lock 10 ML Syringe IV ×3 (15:57→18:03)
[2020-02-03] MEDS: Cefazolin 2 GM in 0.9% Normal Saline 100 ML IV ×2 (16:24→22:20)
--- NOTE | 2020-02-03 16:25 | PCM.HP.STD ---
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 Qualifiers: (3) Atrial fibrillation Status: Chronic Qualifiers: (4) Pure hypercholesterolemia Status: Chronic (5) Essential hypertension Status: Chronic (6) Anxiety and depression Status: Chronic (7) CKD (chronic kidney disease), stage III Status: Chronic (8) GERD (gastroesophageal reflux disease) Status: Chronic (9) Obstructive sleep apnea Status: Chronic (10) Morbid obesity Status: Chronic (11) Depression Status: Chronic History of Present Illness Date of Admission: 02/03/20 Chief Complaint: swollen extremities The patient is a 69 year old M with pmhx of gout, CAD, afib, HTN, GERD, LILI on CPAP qhs, morbid obesity, who presents to the ER with swollen extremities. He first noted right hand, wrist, fingers, and forearm swollen on Sunday AM. He went to see his PCP who gave him an intramuscular steroid injection with suspicion that he had gout. He had no improvement. He has developed swelling and severe pain in more areas, including the left hand and wrist, right and left ankles and feet, worse in the left foot. His right great toe is erythematous but not painful. The patient came to the ER 01/30, was given norco and discharged. He then represented today things have continued to worsen. He denies fever, chills, cough, SOB, fatigue, nausea, vomiting, diarrhea. He denies any inciting trauma or skin tears. He did have septic knee several years prior but at that time he had an inciting injury with skin tear. That was successfully treated by Dr. Batres. He has had gout multiple times in the past, and each of the current areas have been involved in some way, however he has never had it in all of these locations at once. He does take allopurinol 300 mg daily. He does not report any significant diet change recently. [] Past Medical History Past Medical History (Chronic Problems): Chronic Problems (Last Updated 07/29/19 @ 14:10 by Qian Olmos) Atherosclerotic heart disease of hoh coronary artery without angina pectoris (Chronic) Atrial fibrillation (Chronic) Pure hypercholesterolemia (Chronic) Essential hypertension (Chronic) Anxiety and depression (Chronic) CKD (chronic kidney disease), stage III (Chronic) GERD (gastroesophageal reflux disease) (Chronic) Obstructive sleep apnea (Chronic) Morbid obesity (Chronic) Depression (Chronic) Medical History: Medical History (Last Updated 07/29/19 @ 14:10 by Qian Olmos) Atherosclerotic heart disease of hoh coronary artery without angina pectoris (Chronic) I25.10 Atrial fibrillation (Chronic) I48.91 Pure hypercholesterolemia (Chronic) E78.00 Essential hypertension (Chronic) I10 Viral syndrome (Acute) B34.9 Severe sepsis (Acute) A41.9, R65.20 Anxiety and depression (Chronic) F41.9, F32.9 CKD (chronic kidney disease), stage III (Chronic) N18.3 GERD (gastroesophageal reflux disease) (Chronic) K21.9 Obstructive sleep apnea (Chronic) G47.33 Morbid obesity (Chronic) E66.01 Depression (Chronic) F32.9 TEODORO (acute kidney injury) (Acute) N17.9 Septic joint of right knee joint (Acute) M00.9 History of left heart catheterization (LHC) Onset Date: ~07/29/19 Z98.890 LEFT MAIN: Angiographically normal; LEFT ANTERIOR DESCENDING ARTERY: Mild luminal irregularities PROX LAD: 10 - 25 % Stenosis; CIRCUMFLEX ARTERY: Mild luminal irregularities; RIGHT CORONARY ARTERY: PROX RCA: diffuse: eccentric: 25 % Stenosis, MID RCA: is occluded, DISTAL RCA: fills from bridging collaterals and left to right collateral flow, COLLATERAL FLOW: Collateral flow from Right to Right, Collateral flow from Left to Right AORTIC ROOT: Angiographically normal per cath 07/29/19 Hypertension (Inactive) I10 Allergies bee venom protein (honey bee) Allergy (Verified 01/31/20 19:48) Hives amlodipine Adverse Reaction (Severe, Verified 02/02/20 14:43) severe swelling in hands and feet spider venom Adverse Reaction (Verified 01/31/20 19:48) Other Home Medications: Ambulatory Orders Medication Instructions Recorded Citalopram [Celexa] 20 mg PO DAILY 09/21/14 Metoprolol Tartrate [Lopressor 50 mg PO BID 09/21/14 (beta kiki)] Multivitamins,Therapeutic 1 tab PO DAILY 09/21/14 [Multivitamin] Esomeprazole Mag Trihydrate 20 mg PO DAILY 05/18/19 [Nexium] Tamsulosin HCl 0.4 mg PO DAILY 05/18/19 apixaban 5 mg tablet 5 mg PO BID #180 tab 07/02/19 atorvastatin 80 mg tablet 80 mg PO QHS #30 tab 07/29/19 allopurinol 300 mg tablet 300 mg PO DAILY 01/26/20 Cod Liver Oil 1 cap PO BID 02/03/20 Mirtazapine [Remeron] 7.5 mg PO QHS 02/03/20 Turmeric 400 mg PO DAILY 02/03/20 Surgical History: Surgical History (Last Reviewed 07/23/19 @ 10:38 by Qian Olmos) History of total right knee replacement Z96.651 Surgical History: total knee arthroplasty, - - Right total knee replacement, follow-up intervention following knee infection postoperatively, umbilical and bilateral inguinal hernia repairs. Psychiatric History: Anxiety, Depression Lives: Spouse/ Significant Other Smoking Status: Former smoker Tobacco Use: Non-smoker Alcohol: None Drugs: None - *Family History Maternal Family History: Family History (Last Reviewed 02/03/20 @ 16:37 by Nitin PERSAUD PA) Father Heart disease Diabetes CAD (coronary artery disease) History of coronary artery bypass surgery Cardiac pacemaker in situ History Items: Hypertension Paternal Family History: Family History (Last Reviewed 02/03/20 @ 16:37 by Nitin PERSAUD PA) Father Heart disease Diabetes CAD (coronary artery disease) History of coronary artery bypass surgery Cardiac pacemaker in situ History Items: Diabetes, Hypertension Review of Systems Constitutional: Denies: Chills, Fever, Weight Change, Fatigue HEENT: Denies: Head Aches, Sinus Congestion, Sinus Drainage Cardiovascular: Denies: Chest Pain, Edema, Light Headedness, Palpitations Respiratory: Denies: Cough, Shortness of Breath, Shortness of breath at rest, Sputum production Gastrointestinal: Denies: Abdominal Pain, Diarrhea, Nausea, Vomiting Genitourinary: Denies: Dysuria, Hesitancy, Urgency Musculoskeletal: Reports: Arm Pain, Foot Pain, Hand Pain, Joint Pain, Joint stiffness, Joint swelling, Joint Tenderness. Denies: Neck Pain, Shoulder Pain Skin: Reports: Skin Changes - erythema, swelling. Denies: Lesions, Rash, Wounds Neurological: Denies: Confusion, Focal weakness, Numbness, Tingling Psychiatric: Denies: Anxiety, Depression, Homicidal Ideations, Suicidal Ideations Hematologic/ Lymphatic: Denies: Easy Bruising, Easy Bleeding VTE Information - Inpt Only VTE Present on Admission: No VTE Mechan Device Prophylaxis: SCD's VTE Pharm Prophylaxis ordered?: No - Physical Exam Vitals/I&O's: Vital Signs Temp Pulse Resp BP Pulse Ox 98.3 F 70 18 139/60 H 94 02/03/20 15:58 02/03/20 16:10 02/03/20 15:58 02/03/20 15:58 02/03/20 15:58 Oxygen Delivery Method Room Air Weight: 308 lb 10.354 oz Body Mass Index (BMI) 45.6 General: Alert, Oriented x3, Cooperative HEENT: Atraumatic, PERRLA, EOMI, Normocephalic Neck: Supple, No JVD, Negative Carotid Bruits Lungs: Clear to auscultation, Normal air movement Cardiovascular: Regular rate, No murmurs Abdomen: Bowel Sounds Present, Soft, Non Tender, Obese Extremities: No edema, Capillary Refill Less than 3 Seconds Skin: No rashes, No breakdown Musculoskeletal: Tenderness, - - right hand, wrist, foremarm, left foot, BL ankles with swelling and severe tenderness to palptation, limited ROM. Pulses at the wrists, feet, and ankles are intact and equal. Neurological: Cranial nerves II-XII grossly intact Psych/Mental Status: Normal Affect, Appropriate, Alert and oriented to time, place, person, mood and affect Laboratory Results 02/03/20 11:10: WBC 12.5 H, RBC 4.06 L, Hgb 11.8 L, Hct 36.6 L, MCV 90.1, MCH 29.1, MCHC 32.2, RDW Std Deviation 52.4 H, RDW Coeff of Abdiel 15.9 H, Plt Count 317, MPV 10.6, Immature Gran % (Auto) 0.400, Neut % (Auto) 79.9 H, Lymph % (Auto) 6.2 L, Coke % (Auto) 12.5 H, Eos % (Auto) 0.8, Baso % (Auto) 0.2, Absolute Neuts (auto) 10.0 H, Absolute Lymphs (auto) 0.78 L, Nucleated RBC % 0, Differential Comment COMMENT, Diff Path Review May foll, Platelet Estimate ADEQUATE, Plt Morphology Comment CLUMPED, ESR 102 H 02/03/20 12:14: Sodium 138, Potassium 4.1, Chloride 107, Carbon Dioxide 26.0, Anion Gap 5, BUN 20 H, Creatinine 1.29, Estim Creat Clear Calc 55.57, Est GFR (MDRD) Af Amer 71, Est GFR (MDRD) Non-Af 59 L, BUN/Creatinine Ratio 15.5, Glucose 95, Uric Acid 5.0, Calcium 9.3, C-React Prot Ext Range 205.00 H Current Medications Allopurinol (Allopurinol 300 Mg Tablet) 300 mg PO DAILY [facility] Apixaban (Apixaban 5 Mg Tablet) 5 mg PO BID [facility] Atorvastatin Calcium (Atorvastatin Calcium 80 Mg Tablet) 80 mg PO QHS [facility] Citalopram Hydrobromide (Citalopram 20 Mg Tablet) 20 mg PO DAILY [facility] Sodium Chloride () 1,000 mls @ 100 mls/hr IV .Q10H [facility] Last Admin: 02/03/20 15:51 Dose: 100 mls/hr Documented by: Cefazolin Sodium 2 gm/ Sodium (Chloride) 110 mls @ 150 mls/hr IV Q8 [facility] Sodium Chloride () 250 mls @ 15 mls/hr IV .[id number] PRN PRN Reason: Saline Flush Sodium Chloride () 250 mls @ 15 mls/hr IV .[id number] PRN PRN Reason: Additional IVPB Infusion Metoprolol Tartrate (Metoprolol Tartrate 50 Mg Tablet) 50 mg PO BID [facility] Mirtazapine (Mirtazapine 15 Mg Tablet) 7.5 mg PO QHS [facility] Morphine Sulfate (Morphine 4 Mg/Ml Syringe) 4 mg IV Q3H PRN PRN PRN Reason: Pain Score 6-10 Oxycodone HCl (Oxycodone 5 Mg Tablet) 10 mg PO Q4H PRN PRN PRN Reason: Pain Score 4-5 Pantoprazole Sodium (Pantoprazole Sodium 20 Mg Tablet) 20 mg PO DAILY [facility] Sodium Chloride (0.9% Saline Lock 10 Ml Syringe) 2 - 6 ml IV UD PRN PRN Reason: Pediatric Saline Flush Last Admin: 02/03/20 15:57 Dose: 5 ml Documented by: Tamsulosin HCl (Tamsulosin Hcl 0.4 Mg Capsule) 0.4 mg PO DAILY@0830 [facility] Assessment/Plan All Active Problems (Last Updated 07/29/19 @ 14:10 by Qian Olmos) Cellulitis (Acute) Viral syndrome (Acute) Severe sepsis (Acute) TEODORO (acute kidney injury) (Acute) Septic joint of right knee joint (Acute) 1. Multiple joint gout vs multiple septic joints vs - pt with hx gout, on 300 allopurinol daily. He failed outpatient IM steroid therapy. He has had gout in all of these locations however not all at once. He has had no trauma to these areas. The worst is the right hand which is severely swollen, with parasthesias, erythema, pain, and severely limited ROM. He has a mild WBC elevation with no fever and otherwise stable vitals. He does not have constitutional symptoms suggestive of sepsis. He has a markedly elevated ESR and CRP 102 and 205 respectively. Uric acid is normal. Xrays and MRI are pending. Dr. Hayes consulted. Cefazolin started. He does have a hx of septic R knee joint treated succesfsully [place] [address] Batres, at that time he had an inciting skin break - spider bite - Strep agalactiae grew at that time. 2. Hx CAD, pAfib - pt of Dr. Burkett. Rate stable. Continue Metoprolol/Eliquis/Statin 3. LILI - continue CPAP qhs 4. Morbid obesity - lipstick molder consult 5. HTN - stable 6. Anx/Depression - celexa, remeron 7. BPH - flomax DVT ppx: jack VANCE planning: If septic joints pt will likely need tx. This patient was seen by Nitin Garcia PA-C under the supervision of Dr. Marin.
--- NOTE | 2020-02-03 17:00 | PCM.CONS.GEN ---
Reason for Consult Date of Consultation: 02/03/20 History of Present Illness: The patient is a 69 year old male with reported prolonged history of gout involving his right and left wrist and right and left foot that developed right wrist and hand pain and swelling 6 or 7 days ago. He denies any injury. He denies any known source of infection. Patient saw his primary care physician. Patient was treated with a steroid shot for possible gout. He states the steroid shot did not help. He has been on Wright for pain. He denies fever or chills. He denies any chest pain or shortness of breath. Denies productive cough. Denies signs of urinary tract infection. Denies knee joint pain. Due to persistent progressive hand pain and swelling he came to the emergency room. ER physician did not feel this was a septic joint. He was admitted to the medical service and orthopedics consulted. Patient had previous knee replacement by Dr. Crawford. Patient's right knee became infected at some point treated by Dr. Batres. [] Past Medical History Past Medical History (Chronic Problems): Chronic Problems (Last Updated 07/29/19 @ 14:10 by Qian Olmos) Atherosclerotic heart disease of [place] coronary artery without angina pectoris (Chronic) Atrial fibrillation (Chronic) Pure hypercholesterolemia (Chronic) Essential hypertension (Chronic) Anxiety and depression (Chronic) CKD (chronic kidney disease), stage III (Chronic) GERD (gastroesophageal reflux disease) (Chronic) Obstructive sleep apnea (Chronic) Morbid obesity (Chronic) Depression (Chronic) Medical History: Medical History (Last Updated 07/29/19 @ 14:10 by Qian Olmos) Atherosclerotic heart disease of [place] coronary artery without angina pectoris (Chronic) I25.10 Atrial fibrillation (Chronic) I48.91 Pure hypercholesterolemia (Chronic) E78.00 Essential hypertension (Chronic) I10 Viral syndrome (Acute) B34.9 Severe sepsis (Acute) A41.9, R65.20 Anxiety and depression (Chronic) F41.9, F32.9 CKD (chronic kidney disease), stage III (Chronic) N18.3 GERD (gastroesophageal reflux disease) (Chronic) K21.9 Obstructive sleep apnea (Chronic) G47.33 Morbid obesity (Chronic) E66.01 Depression (Chronic) F32.9 TEODORO (acute kidney injury) (Acute) N17.9 Septic joint of right knee joint (Acute) M00.9 History of left heart catheterization (LHC) Onset Date: ~07/29/19 Z98.890 LEFT MAIN: Angiographically normal; LEFT ANTERIOR DESCENDING ARTERY: Mild luminal irregularities PROX LAD: 10 - 25 % Stenosis; CIRCUMFLEX ARTERY: Mild luminal irregularities; RIGHT CORONARY ARTERY: PROX RCA: diffuse: eccentric: 25 % Stenosis, MID RCA: is occluded, DISTAL RCA: fills from bridging collaterals and left to right collateral flow, COLLATERAL FLOW: Collateral flow from Right to Right, Collateral flow from Left to Right AORTIC ROOT: Angiographically normal per cath 07/29/19 Hypertension (Inactive) I10 Allergies bee venom protein (honey bee) Allergy (Verified 01/31/20 19:48) Hives amlodipine Adverse Reaction (Severe, Verified 02/02/20 14:43) severe swelling in hands and feet spider venom Adverse Reaction (Verified 01/31/20 19:48) Other Home Medications: Ambulatory Orders Medication Instructions Recorded Citalopram [Celexa] 20 mg PO DAILY 09/21/14 Metoprolol Tartrate [Lopressor 50 mg PO BID 09/21/14 (beta kiki)] Multivitamins,Therapeutic 1 tab PO DAILY 09/21/14 [Multivitamin] Esomeprazole Mag Trihydrate 20 mg PO DAILY 05/18/19 [Nexium] Tamsulosin HCl 0.4 mg PO DAILY 05/18/19 apixaban 5 mg tablet 5 mg PO BID #180 tab 07/02/19 atorvastatin 80 mg tablet 80 mg PO QHS #30 tab 07/29/19 allopurinol 300 mg tablet 300 mg PO DAILY 01/26/20 Cod Liver Oil 1 cap PO BID 02/03/20 Mirtazapine [Remeron] 7.5 mg PO QHS 02/03/20 Turmeric 400 mg PO DAILY 02/03/20 Surgical History: Surgical History (Last Reviewed 07/23/19 @ 10:38 by Qian Olmos) History of total right knee replacement Z96.651 Surgical History: total knee arthroplasty, - - Right total knee replacement, follow-up intervention following knee infection postoperatively, umbilical and bilateral inguinal hernia repairs. Psychiatric History: Anxiety, Depression Lives: Spouse/ Significant Other Smoking Status: Former smoker Tobacco Use: Non-smoker Alcohol: None Drugs: None - *Family History Maternal Family History: Family History (Last Reviewed 02/03/20 @ 16:37 by HUNG Carlton) Father Heart disease Diabetes CAD (coronary artery disease) History of coronary artery bypass surgery Cardiac pacemaker in situ History Items: Hypertension Paternal Family History: Family History (Last Reviewed 02/03/20 @ 16:37 by HUNG Carlton) Father Heart disease Diabetes CAD (coronary artery disease) History of coronary artery bypass surgery Cardiac pacemaker in situ History Items: Diabetes, Hypertension Patient Problems: Active and Suspected Problems (Last Updated 07/29/19 @ 14:10 by Qian Olmos) Cellulitis (Acute) Objective: Patient is laying in bed comfortably. He would wear a mask at my request. He is speaking normally without distress. He has diffuse swelling about the right fingers dorsal hand and wrist. Some swelling about the dorsal forearm. He has exquisite tenderness about the dorsal wrist and forearm. Moderate tenderness about the elbow. Minimal pain at the shoulder. He has full motion of the shoulder and elbow with some discomfort. He has very limited motion of the right wrist and finger secondary to swelling. Light touch sensation is intact but patient does feel paresthesias. Radial pulses intact. Pitting edema about the dorsal hand and wrist. No obvious fluctuance or abscess palpated. Left wrist has pain on palpation. Minimal swelling. Near full range of motion of left wrist. Left ankle has redness about the medial aspect. Left ankle and foot have diffuse soft tissue swelling. No obvious ankle joint effusion. He has pain and stiffness at the left ankle. No severe pain at the great toes. Right ankle has mild tenderness throughout. No severe swelling or redness. No calf pain or swelling bilaterally. Full range of motion of both hips and knees without pain. Right knee incision healed without signs of infection. No signs of knee effusion. Laboratory work and vital signs reviewed Case discussed with Dr. Marcial and PA and lead application architect of systems: Patient denies any problem with his eyes ears nose or throat heart or lungs bowel or bladder. X-rays of the right hand and wrist reviewed showing significant degenerative changes of the basal joint of the thumb. Cystic changes of the scaphoid. Significant arthritis of the MCP joints and IP joints of the digits. Diffuse soft tissue swelling dorsally. MRI scan of the right wrist and hand shows diffuse soft tissue swelling dorsally. Degenerative changes of the joints as noted above. I could not appreciate any definitive abscess. MRI report pending. - Physical Exam Vitals/I&O's: Vital Signs Temp Pulse Resp BP Pulse Ox 98.3 F 70 18 139/60 H 94 02/03/20 15:58 02/03/20 16:10 02/03/20 15:58 02/03/20 15:58 02/03/20 15:58 Oxygen Delivery Method Room Air Weight: 140 kg Body Mass Index (BMI) 45.6 Intake and Output for Last 24 Hours 02/01/20 02/02/20 02/03/20 23:59 23:59 23:59 Intake Total 710.83 / 710.83 Balance 710.83 / 710.83 Laboratory Results 02/03/20 11:10: WBC 12.5 H, RBC 4.06 L, Hgb 11.8 L, Hct 36.6 L, MCV 90.1, MCH 29.1, MCHC 32.2, RDW Std Deviation 52.4 H, RDW Coeff of Abdiel 15.9 H, Plt Count 317, MPV 10.6, Immature Gran % (Auto) 0.400, Neut % (Auto) 79.9 H, Lymph % (Auto) 6.2 L, [place] % (Auto) 12.5 H, Eos % (Auto) 0.8, Baso % (Auto) 0.2, Absolute Neuts (auto) 10.0 H, Absolute Lymphs (auto) 0.78 L, Nucleated RBC % 0, Differential Comment COMMENT, Diff Path Review May foll, Platelet Estimate ADEQUATE, Plt Morphology Comment CLUMPED, ESR 102 H 02/03/20 12:14: Sodium 138, Potassium 4.1, Chloride 107, Carbon Dioxide 26.0, Anion Gap 5, BUN 20 H, Creatinine 1.29, Estim Creat Clear Calc 55.57, Est GFR (MDRD) Af Amer 71, Est GFR (MDRD) Non-Af 59 L, BUN/Creatinine Ratio 15.5, Glucose 95, Uric Acid 5.0, Calcium 9.3, C-React Prot Ext Range 205.00 H Current Medications Allopurinol (Allopurinol 300 Mg Tablet) 300 mg PO DAILY [facility] Apixaban (Apixaban 5 Mg Tablet) 5 mg PO BID [facility] Atorvastatin Calcium (Atorvastatin Calcium 80 Mg Tablet) 80 mg PO QHS [facility] Citalopram Hydrobromide (Citalopram 20 Mg Tablet) 20 mg PO DAILY [facility] Sodium Chloride () 1,000 mls @ 100 mls/hr IV .Q10H [facility] Last Infusion: 02/03/20 16:35 Dose: 0 mls/hr Documented by: Cefazolin Sodium 2 gm/ Sodium (Chloride) 110 mls @ 150 mls/hr IV Q8 [facility] Last Admin: 02/03/20 16:24 Dose: 150 mls/hr Documented by: Sodium Chloride () 250 mls @ 15 mls/hr IV .[id number] PRN PRN Reason: Saline Flush Sodium Chloride () 250 mls @ 15 mls/hr IV .[id number] PRN PRN Reason: Additional IVPB Infusion Metoprolol Tartrate (Metoprolol Tartrate 50 Mg Tablet) 50 mg PO BID [facility] Mirtazapine (Mirtazapine 15 Mg Tablet) 7.5 mg PO QHS [facility] Morphine Sulfate (Morphine 4 Mg/Ml Syringe) 4 mg IV Q3H PRN PRN PRN Reason: Pain Score 6-10 Last Admin: 02/03/20 16:24 Dose: 4 mg Documented by: Oxycodone HCl (Oxycodone 5 Mg Tablet) 10 mg PO Q4H PRN PRN PRN Reason: Pain Score 4-5 Pantoprazole Sodium (Pantoprazole Sodium 20 Mg Tablet) 20 mg PO DAILY [facility] Sodium Chloride (0.9% Saline Lock 10 Ml Syringe) 2 - 6 ml IV UD PRN PRN Reason: Pediatric Saline Flush Last Admin: 02/03/20 16:24 Dose: 5 ml Documented by: Tamsulosin HCl (Tamsulosin Hcl 0.4 Mg Capsule) 0.4 mg PO DAILY@0830 [facility] Assessment/Plan All Active Problems (Last Updated 07/29/19 @ 14:10 by Qian Olmos) Cellulitis (Acute) Viral syndrome (Acute) Severe sepsis (Acute) TEODORO (acute kidney injury) (Acute) Septic joint of right knee joint (Acute) His diagnosis and treatment options regarding his right wrist and hand pain and swelling, cellulitis, possible etiologies include underlying joint infection, gout, other inflammatory arthropathy discussed with him at length. We discussed the involvement of his left ankle, left wrist and right ankle as well. We discussed his history of gout and previous knee infection. Case has been discussed with Dr. Marin and his physician elementary assistant teacher as well. If radiologist feels there is a fluid collection or abscess I potentially could offer aspiration of the site. I explained if this is felt to be a infectious process requiring surgical intervention I would recommend referral to a larger facility based on his underlying medical comorbidities and potential adverse outcomes regarding multiple joint involvement. Patient as well as his physicians understand and agree. Continue on IV antibiotics for now. Recommended elevating his right forearm and hand as much as possible comfortably
[2020-02-03] MEDS: dexAMETHasone 4 MG/ML Vial IV ×2 (18:03→23:39)
--- NOTE | 2020-02-03 19:42 | PHA.PHARE_ITS ---
Consult Pharmacy has been consulted to manage selected antiobiotic: Vancomycin Type of Consult: New start Suspected Infection: Skin/Soft tissue Labs: Sodium 138 mmol/L (136-145) 02/03/20 12:14 Potassium 4.1 mmol/L (3.5-5.1) 02/03/20 12:14 Chloride 107 mmol/L (98-107) 02/03/20 12:14 Carbon Dioxide 26.0 mmol/L (21.0-32.0) 02/03/20 12:14 Anion Gap 5 (5-15) 02/03/20 12:14 BUN 20 mg/dL (7-18) H 02/03/20 12:14 Creatinine 1.29 mg/dL (0.70-1.30) 02/03/20 12:14 Est GFR (MDRD) Af Amer 71 mL/min (>60) 02/03/20 12:14 Est GFR (MDRD) Non-Af 59 mL/min (>60) L 02/03/20 12:14 BUN/Creatinine Ratio 15.5 RATIO (10-20) 02/03/20 12:14 Glucose 95 mg/dL (74-106) 02/03/20 12:14 Weight used for dosin kg Estimated Creatinine Clearance: 77ML/MIN Goal Trough: 15-20 mcg/mL Pharmacy Plan for Drug Dosing: Will give initial load dose of 2000mg IV x1, then will continue with 1750mg IV q12h per [facility] dosing protocol. Will order a trough before the 4th total dose. The patient's CrCl of 77ml/min was calculated using an adjusted body weight of 98.4kg. Pharmacy Service will continue to monitor and adjust dosing as required. Follow-Up Labs: Trough Vancomycin Labs to be done on [date and time ordered]: 02/04 06:30
[2020-02-03] MEDS: APIXABAN 5 MG TABLET PO (21:08)
[2020-02-03] MEDS: Atorvastatin Calcium 80 MG Tablet PO (21:08)
[2020-02-03] MEDS: Metoprolol Tartrate 50 MG Tablet PO (21:08)
[2020-02-03] MEDS: Mirtazapine 15 MG Tablet 7.5 MG PO (21:08)
[2020-02-04] VITALS (7 sets, daily range): BP systolic 116–158; BP diastolic 48–65; PULSE 48–55; RESP 16–20; TEMP 36.3–36.8; O2SAT 93–98
[2020-02-04] MEDS: dexAMETHasone 4 MG/ML Vial IV ×3 (05:11→18:34)
[2020-02-04] MEDS: Cefazolin 2 GM in 0.9% Normal Saline 100 ML IV ×3 (05:11→22:08)
[2020-02-04 07:11] LABS: Absolute Lymphocyte Count 0.38 X10^3/uL (0.83-4.51); Absolute Neutrophil Count 10.2 X10^3/uL (2.0-7.7); Basophil# 0.01 X10^3/uL; Basophil% 0.1 % (0-1); Eosinophil# 0.01 X10^3/uL; Eosinophils% 0.1 % (0-5); Hematocrit 36.7 % (40-54); Hemoglobin 11.6 g/dL (13.0-16.5); Lymphocyte # 0.38 X10^3/ul (4.0); Lymphocyte % 3.4 % (19-41); Mean Corp Hgb Conc 31.6 g/dL (32-36); Mean Corpuscular Hgb 28.6 pg (27.0-32.0); Mean Corpuscular Volume 90.6 fL (80-94); Mean Platelet Vol. 10.5 fl (6.2-12.0); Monocyte# 0.39 X10^3/uL; Monocyte% 3.5 % (0-10); NRBC Flagged by Analyzer 0 % (0-5); Neutrophil # 10.22 X10^3/uL (2.7-7.7); Neutrophil % 92.3 % (47-70); POSITIVE DIFFERENTIAL YES; Platelet Count 334 K/mm3 (150-450); RBC Distribution Width CV 15.9 % (11.6-14.6); RBC Distribution Width SD 52.7 fl (35.1-43.9); Red Blood Count 4.05 M/mm3 (4.6-6.2); White Blood Count 11.1 K/mm3 (4.4-11.0)
[2020-02-04 07:13] LABS: Differential Indicated SCAN CRITERIA MET
[2020-02-04 07:41] LABS: Anion Gap 6 (5-15); BUN 23 mg/dL (7-18); BUN/Creat Ratio 16.5 RATIO (10-20); Calcium,Total 9.4 mg/dL (8.5-10.1); Chloride 109 mmol/L (98-107); Creatinine, Serum 1.39 mg/dL (0.70-1.30); EST Glomerular Filtration Rate 54 mL/min (>60); Est Glom Filt Rate - Afr Amer 66 mL/min (>60); Estimated Creatinine Clearance 51.57 ml/min; Glucose 162 mg/dL (74-106); Potassium 4.5 mmol/L (3.5-5.1); Sodium Level 140 mmol/L (136-145)
[2020-02-04] MEDS: Tamsulosin HCl 0.4 MG Capsule PO (08:19)
[2020-02-04 08:47] LABS: AST(SGOT) 28 U/L (15-37); Alanine Aminotransfer ALT/SGPT 18 U/L (16-61); Albumin, Serum 2.3 g/dL (3.2-5.0); Alkaline Phosphatase 173 U/L (45-117); Bilirubin, Direct 0.16 mg/dL (0.00-0.30); Globulin 4.9 g/dL (2.2-4.2); Protein, Total 7.2 g/dL (6.4-8.2)
[2020-02-04] MEDS: Pantoprazole Sodium 20 MG Tablet PO (08:47)
[2020-02-04] MEDS: APIXABAN 5 MG TABLET PO ×2 (08:48→22:02)
[2020-02-04] MEDS: Allopurinol 300 MG Tablet PO (08:48)
[2020-02-04] MEDS: Citalopram 20 MG Tablet PO (08:48)
--- NOTE | 2020-02-04 10:25 | CASEMGMT ---
RN CA Face to Face with patient for initial transition planning/care coordination assessment. RN CM introduced self and role at [facility]. Patient lying in bed, alert and oriented. Patient willing to participate in assessment and is able to answer all questions appropriately. Care providers, pharmacy, and demographics verified. Patient wishes to discharge home, denies need for home health at this time. Patient states he has no further needs or concerns at this time. CM to follow for discharge planning needs that may arise. PCP: Isaiah Specialists:Kwadwo, financial institution manager; Bharathi boat carpenter Preferred Pharmacy: [facility] Insurance: [facility] Prescription Benefit: yes Living Will/HPOA: none LNOK: Living Arrangements: Patient lives with in a single story home with 2 steps to enter the home. Patient states that he is independent at home. Transportation: self/ DME/HHC: patient state he has shower chair, cane, walker, grab bars, cpap at home. Patient denies previous HHC. Disposition Plan: Patient to discharge home with family support and follow-up plans in place. Guera NEUMANN, RN, CM
[2020-02-04] MEDS: 0.9% Normal Saline 1,000 ML 100 ML IV (11:37)
[2020-02-04] MEDS: 0.9% Saline Lock 10 ML Syringe IV (13:14)
--- NOTE | 2020-02-04 13:36 | PN_ITS ---
<Nitin Garcia - Last Filed: 02/04/20 13:36> Patient Problems: Active and Suspected Problems (Last Updated 07/29/19 @ 14:10 by Qian Olmos) Cellulitis (Acute) Polyarthritis (Acute) Reason for Visit: painful/swelling, primarily right hand Subjective: Swelling markedly improved. ROM right hand improved. parasthesias resolved. All other areas with similar improvement. Still ongoing pain but much better. No fever/chills. No SOB/cough. No N/V/D. Vitals/I&O's: Vital Signs Temp Pulse Resp BP Pulse Ox 97.9 F 51 L 18 116/48 L 93 02/04/20 08:14 02/04/20 08:47 02/04/20 08:14 02/04/20 08:14 02/04/20 08:14 Oxygen Delivery Method Room Air Weight: 308 lb 10.354 oz Body Mass Index (BMI) 45.6 Intake and Output for Last 24 Hours 02/02/20 02/03/20 02/04/20 23:59 23:59 23:59 Intake Total 2247.50 / 2247.50 1865.00 / 1865.00 Output Total 750 / 750 1100 / 1100 Balance 1497.50 / 1497.50 765.00 / 765.00 General: Alert, Oriented x3, Cooperative HEENT: Atraumatic, PERRLA, EOMI, Normocephalic Neck: Supple, No JVD, Negative Carotid Bruits Lungs: Clear to auscultation, Normal air movement Cardiovascular: Regular rate, No murmurs Abdomen: Bowel Sounds Present, Soft, Non Tender Extremities: No edema, Capillary Refill Less than 3 Seconds Skin: No rashes, No breakdown Musculoskeletal: Tenderness, - - Hand with some ongoing swelling markedly improved. PMS intact. ROM intact. Neurological: Cranial nerves II-XII grossly intact Psych/Mental Status: Normal Affect, Appropriate, Alert and oriented to time, place, person, mood and affect Laboratory Results 02/04/20 06:35: WBC 11.1 H, RBC 4.05 L, Hgb 11.6 L, Hct 36.7 L, MCV 90.6, MCH 28.6, MCHC 31.6 L, RDW Std Deviation 52.7 H, RDW Coeff of Abdiel 15.9 H, Plt Count 334, MPV 10.5, Immature Gran % (Auto) 0.600, Neut % (Auto) 92.3 H, Lymph % (Auto) 3.4 L, [place] % (Auto) 3.5, Eos % (Auto) 0.1, Baso % (Auto) 0.1, Absolute Neuts (auto) 10.2 H, Absolute Lymphs (auto) 0.38 L, Nucleated RBC % 0 02/04/20 06:35: Sodium 140, Potassium 4.5, Chloride 109 H, Carbon Dioxide 25.0, Anion Gap 6, BUN 23 H, Creatinine 1.39 H, Estim Creat Clear Calc 51.57, Est GFR (MDRD) Af Amer 66, Est GFR (MDRD) Non-Af 54 L, BUN/Creatinine Ratio 16.5, Glucose 162 H, Calcium 9.4 02/04/20 06:35: Total Bilirubin 0.40, Direct Bilirubin 0.16, AST 28, ALT 18, Alkaline Phosphatase 173 H, Total Protein 7.2, Albumin 2.3 L, Globulin 4.9 H Current Medications Allopurinol (Allopurinol 300 Mg Tablet) 300 mg PO DAILY [facility] Last Admin: 02/04/20 08:48 Dose: 300 mg Documented by: Apixaban (Apixaban 5 Mg Tablet) 5 mg PO BID [facility] Last Admin: 02/04/20 08:48 Dose: 5 mg Documented by: Atorvastatin Calcium (Atorvastatin Calcium 80 Mg Tablet) 80 mg PO QHS [facility] Last Admin: 02/03/20 21:08 Dose: 80 mg Documented by: Citalopram Hydrobromide (Citalopram 20 Mg Tablet) 20 mg PO DAILY [facility] Last Admin: 02/04/20 08:48 Dose: 20 mg Documented by: Dexamethasone Sodium Phosphate (Dexamethasone 4 Mg/Ml Vial) 4 mg IV Q6 [facility] Last Admin: 02/04/20 13:14 Dose: 4 mg Documented by: Sodium Chloride () 1,000 mls @ 100 mls/hr IV .Q10H [facility] Last Infusion: 02/04/20 13:21 Dose: 0 mls/hr Documented by: Cefazolin Sodium 2 gm/ Sodium (Chloride) 110 mls @ 150 mls/hr IV Q8 [facility] Last Admin: 02/04/20 13:15 Dose: 150 mls/hr Documented by: Sodium Chloride () 250 mls @ 15 mls/hr IV .[id number] PRN PRN Reason: Saline Flush Sodium Chloride () 250 mls @ 15 mls/hr IV .[id number] PRN PRN Reason: Additional IVPB Infusion Vancomycin IV Pharmacy to Dose (1 ea/ Sodium Chloride) 500 mls @ 250 mls/hr IV X1 PRN; Protocol PRN Reason: Rx to Dose Vancomycin HCl 1,750 mg/ (Sodium Chloride) 535 mls @ 250 mls/hr IV Q12H [facility] Last Infusion: 02/04/20 09:55 Dose: Infused Documented by: Metoprolol Tartrate (Metoprolol Tartrate 50 Mg Tablet) 50 mg PO BID [facility] Last Admin: 02/04/20 08:47 Dose: Not Given Documented by: Mirtazapine (Mirtazapine 15 Mg Tablet) 7.5 mg PO QHS [facility] Last Admin: 02/03/20 21:08 Dose: 7.5 mg Documented by: Morphine Sulfate (Morphine 4 Mg/Ml Syringe) 4 mg IV Q3H PRN PRN PRN Reason: Pain Score 6-10 Last Admin: 02/03/20 16:24 Dose: 4 mg Documented by: Oxycodone HCl (Oxycodone 5 Mg Tablet) 10 mg PO Q4H PRN PRN PRN Reason: Pain Score 4-5 Pantoprazole Sodium (Pantoprazole Sodium 20 Mg Tablet) 20 mg PO DAILY [facility] Last Admin: 02/04/20 08:47 Dose: 20 mg Documented by: Sodium Chloride (0.9% Saline Lock 10 Ml Syringe) 2 - 6 ml IV UD PRN PRN Reason: Pediatric Saline Flush Last Admin: 02/04/20 13:14 Dose: 6 ml Documented by: Tamsulosin HCl (Tamsulosin Hcl 0.4 Mg Capsule) 0.4 mg PO DAILY@0830 [facility] Last Admin: 02/04/20 08:19 Dose: 0.4 mg Documented by: Medical Necessity - Tobacco Use Smoking Status: Former smoker Tobacco Use: Non-smoker Assessment/Plan All Active Problems (Last Updated 07/29/19 @ 14:10 by Qian Olmos) Cellulitis (Acute) Polyarthritis (Acute) Viral syndrome (Acute) Severe sepsis (Acute) TE[place]ORO (acute kidney injury) (Acute) Septic joint of right knee joint (Acute) 1. Multiple joint gout vs multiple septic joints vs - improving on decadron and IV abx: vanc/cefazolin. Dr. Hayes signed off. MRI nonspecific. ID consulted. Blood cultures pending. -ESR 102, CRP 205. -WBCs improved -No fever. -Urate neg. -Xrays with nonspecific arthritis. 2. Hx CAD, pAfib - pt of Dr. Burkett. Rate stable. Continue Metop rolol/Eliquis/Statin 3. LILI - continue CPAP qhs 4. Morbid obesity - follow up specialist consult 5. HTN - stable 6. Anx/Depression - celexa, remeron 7. BPH - flomax DVT ppx: eliquis DC planning: if septic joints likely needs tx This patient was seen by Nitin Garcia PA-C under the supervision of Dr. Leyva <Noa Leyva - Last Filed: 02/04/20 17:39> Subjective: Hand feels much better this am. Pain is better and movement is improved. Vitals/I&O's: Vital Signs Temp Pulse Resp BP Pulse Ox 97.4 F L 48 L 16 133/55 H 97 02/04/20 14:36 02/04/20 14:36 02/04/20 14:36 02/04/20 14:36 02/04/20 14:36 Oxygen Delivery Method Room Air Weight: 140 kg Body Mass Index (BMI) 45.6 Intake and Output for Last 24 Hours 02/02/20 02/03/20 02/04/20 23:59 23:59 23:59 Intake Total 2247.50 / 2247.50 1974.00 / 1974.00 Output Total 750 / 750 1100 / 1100 Balance 1497.50 / 1497.50 875.00 / 875.00 General: Alert, Oriented x3, Cooperative, No apparent distress, Well developed, Well nourished Lungs: Clear to auscultation, Normal air movement, No rhonchi, No wheeze, No rales Cardiovascular: Regular rate, Regular Rhythm, Normal S1, Normal S2, No murmurs, No rub noted, No Gallop Abdomen: Bowel Sounds Present, Soft, Non Tender, Non-Distended, Obese Extremities: No clubbing, No cyanosis, No edema, Capillary Refill Less than 3 Seconds, Peripheral Pulses Normal Musculoskeletal: Arthritic Changes, Tenderness, - - Hand with some ongoing swelling markedly improved. PMS intact. ROM intact., tender at 2nd and 3rd MCP on R Neurological: Cranial nerves II-XII grossly intact, Neuro grossly intact Psych/Mental Status: Normal Affect, Appropriate Laboratory Results 02/03/20 11:10: Diff Path Review Reviewed 02/04/20 06:35: WBC 11.1 H, RBC 4.05 L, Hgb 11.6 L, Hct 36.7 L, MCV 90.6, MCH 28.6, MCHC 31.6 L, RDW Std Deviation 52.7 H, RDW Coeff of Abdiel 15.9 H, Plt Count 334, MPV 10.5, Immature Gran % (Auto) 0.600, Neut % (Auto) 92.3 H, Lymph % (Auto) 3.4 L, [place] % (Auto) 3.5, Eos % (Auto) 0.1, Baso % (Auto) 0.1, Absolute Neuts (auto) 10.2 H, Absolute Lymphs (auto) 0.38 L, Nucleated RBC % 0 02/04/20 06:35: Sodium 140, Potassium 4.5, Chloride 109 H, Carbon Dioxide 25.0, Anion Gap 6, BUN 23 H, Creatinine 1.39 H, Estim Creat Clear Calc 51.57, Est GFR (MDRD) Af Amer 66, Est GFR (MDRD) Non-Af 54 L, BUN/Creatinine Ratio 16.5, Glucose 162 H, Calcium 9.4 02/04/20 06:35: Total Bilirubin 0.40, Direct Bilirubin 0.16, AST 28, ALT 18, Alkaline Phosphatase 173 H, Total Protein 7.2, Albumin 2.3 L, Globulin 4.9 H Current Medications Allopurinol (Allopurinol 300 Mg Tablet) 300 mg PO DAILY [facility] Last Admin: 02/04/20 08:48 Dose: 300 mg Documented by: Apixaban (Apixaban 5 Mg Tablet) 5 mg PO BID [facility] Last Admin: 02/04/20 08:48 Dose: 5 mg Documented by: Atorvastatin Calcium (Atorvastatin Calcium 80 Mg Tablet) 80 mg PO QHS [facility] Last Admin: 02/03/20 21:08 Dose: 80 mg Documented by: Citalopram Hydrobromide (Citalopram 20 Mg Tablet) 20 mg PO DAILY [facility] Last Admin: 02/04/20 08:48 Dose: 20 mg Documented by: Dexamethasone Sodium Phosphate (Dexamethasone 4 Mg/Ml Vial) 4 mg IV Q6 [facility] Last Admin: 02/04/20 13:14 Dose: 4 mg Documented by: Sodium Chloride () 1,000 mls @ 100 mls/hr IV .Q10H [facility] Last Infusion: 02/04/20 13:21 Dose: 0 mls/hr Documented by: Cefazolin Sodium 2 gm/ Sodium (Chloride) 110 mls @ 150 mls/hr IV Q8 [facility] Last Infusion: 02/04/20 14:00 Dose: Infused Documented by: Sodium Chloride () 250 mls @ 15 mls/hr IV .[id number] PRN PRN Reason: Saline Flush Sodium Chloride () 250 mls @ 15 mls/hr IV .[id number] PRN PRN Reason: Additional IVPB Infusion Vancomycin IV Pharmacy to Dose (1 ea/ Sodium Chloride) 500 mls @ 250 mls/hr IV X1 PRN; Protocol PRN Reason: Rx to Dose Vancomycin HCl 1,750 mg/ (Sodium Chloride) 535 mls @ 250 mls/hr IV Q12H [facility] Last Infusion: 02/04/20 09:55 Dose: Infused Documented by: Metoprolol Tartrate (Metoprolol Tartrate 50 Mg Tablet) 50 mg PO BID [facility] Last Admin: 02/04/20 08:47 Dose: Not Given Documented by: Mirtazapine (Mirtazapine 15 Mg Tablet) 7.5 mg PO QHS [facility] Last Admin: 02/03/20 21:08 Dose: 7.5 mg Documented by: Morphine Sulfate (Morphine 4 Mg/Ml Syringe) 4 mg IV Q3H PRN PRN PRN Reason: Pain Score 6-10 Last Admin: 02/03/20 16:24 Dose: 4 mg Documented by: Oxycodone HCl (Oxycodone 5 Mg Tablet) 10 mg PO Q4H PRN PRN PRN Reason: Pain Score 4-5 Pantoprazole Sodium (Pantoprazole Sodium 20 Mg Tablet) 20 mg PO DAILY [facility] Last Admin: 02/04/20 08:47 Dose: 20 mg Documented by: Sodium Chloride (0.9% Saline Lock 10 Ml Syringe) 2 - 6 ml IV UD PRN PRN Reason: Pediatric Saline Flush Last Admin: 02/04/20 13:14 Dose: 6 ml Documented by: Tamsulosin HCl (Tamsulosin Hcl 0.4 Mg Capsule) 0.4 mg PO DAILY@0830 [facility] Last Admin: 02/04/20 08:19 Dose: 0.4 mg Documented by: STROKE Vital Signs/Narrative: Vital Signs Temp Pulse Resp BP Pulse Ox 02/04/20 14:36 97.4 F L 48 L 16 133/55 H 97 Assessment/Plan I agree with the above and the following is a reflection of my independent history and physical exam ASSESSMENT R Hand Swelling and Pain Gout vs acute infection -suspect non-infectious since improved so quickly CAD PAF LILI MO HTN BPH HPL Depression Anxiety GERD CKD stage 3 PLAN ID eval pending but doubt infectious since he has improved so quickly -switch to pred taper at d/c -may need to cont abx at d/c -continue home meds -probable d/c tomorrow depending on ID input Inpatient E&M: 82512 Subs Hosp L2
[2020-02-04 13:48] LABS: Pathologist Review Reviewed
--- NOTE | 2020-02-04 16:50 | PCM.HP.ID ---
Problem List (1) Polyarthritis Status: Acute Reason for Consult: joint pain Consulted by: Dr. Leyva History of Present Illness: The patient is a 69 year old M with h/o gout, obesity, presented with sx starting 01/27 with pain/swelling/mild redness in wrists and ankles. Pain 100x worse than normal gout pain. R wrist was the worst, diminished ROM, severe pain. No fever, no chills, no sweats, no trauma/scratches, no h/o abscess. Came to ED, seen by ortho, on steroids, vanc and cefazolin, feeling better. Full ROS performed and neg except as noted above. - Medical History Past Medical History (Chronic Problems): Chronic Problems (Last Updated 07/29/19 @ 14:10 by Qian Olmos) Atherosclerotic heart disease of [place] coronary artery without angina pectoris (Chronic) Atrial fibrillation (Chronic) Pure hypercholesterolemia (Chronic) Essential hypertension (Chronic) Anxiety and depression (Chronic) CKD (chronic kidney disease), stage III (Chronic) GERD (gastroesophageal reflux disease) (Chronic) Obstructive sleep apnea (Chronic) Morbid obesity (Chronic) Depression (Chronic) Allergies/Adverse Reactions: Allergies bee venom protein (honey bee) Allergy (Verified 01/31/20 19:48) Hives amlodipine Adverse Reaction (Severe, Verified 02/02/20 14:43) severe swelling in hands and feet spider venom Adverse Reaction (Verified 01/31/20 19:48) Other Home Medications: Ambulatory Orders Medication Instructions Recorded Citalopram [Celexa] 20 mg PO DAILY 09/21/14 Metoprolol Tartrate [Lopressor 50 mg PO BID 09/21/14 (beta kiki)] Multivitamins,Therapeutic 1 tab PO DAILY 09/21/14 [Multivitamin] Esomeprazole Mag Trihydrate 20 mg PO DAILY 05/18/19 [Nexium] Tamsulosin HCl 0.4 mg PO DAILY 05/18/19 apixaban 5 mg tablet 5 mg PO BID #180 tab 07/02/19 atorvastatin 80 mg tablet 80 mg PO QHS #30 tab 07/29/19 allopurinol 300 mg tablet 300 mg PO DAILY 01/26/20 Cod Liver Oil 1 cap PO BID 02/03/20 Mirtazapine [Remeron] 7.5 mg PO QHS 02/03/20 Turmeric 400 mg PO DAILY 02/03/20 Doxycycline 100 mg PO BID #28 cap 02/04/20 - Social History SMOKING STATUS:: Former smoker Vital Signs Temp Pulse Resp BP Pulse Ox 97.4 F L 48 L 16 133/55 H 97 02/04/20 14:36 02/04/20 14:36 02/04/20 14:36 02/04/20 14:36 02/04/20 14:36 Oxygen Delivery Method Room Air Weight: 140 kg Body Mass Index (BMI) 45.6 Laboratory Tests Past 24 Hrs 02/03/20 02/04/20 02/04/20 11:10 06:35 06:35 WBC 11.1 H RBC 4.05 L Hgb 11.6 L Hct 36.7 L MCV 90.6 MCH 28.6 MCHC 31.6 L RDW Std Deviation 52.7 H RDW Coeff of Abdiel 15.9 H Plt Count 334 MPV 10.5 Immature Gran % (Auto) 0.600 Neut % (Auto) 92.3 H Lymph % (Auto) 3.4 L [place] % (Auto) 3.5 Eos % (Auto) 0.1 Baso % (Auto) 0.1 Absolute Neuts (auto) 10.2 H Absolute Lymphs (auto) 0.38 L Nucleated RBC % 0 [address] Review Reviewed Sodium 140 Potassium 4.5 Chloride 109 H Carbon Dioxide 25.0 Anion Gap 6 BUN 23 H Creatinine 1.39 H Estim Creat Clear Calc 51.57 Est GFR (MDRD) Af Amer 66 Est GFR (MDRD) Non-Af 54 L BUN/Creatinine Ratio 16.5 Glucose 162 H Calcium 9.4 Total Bilirubin Direct Bilirubin AST ALT Alkaline Phosphatase Total Protein Albumin Globulin 02/04/20 06:35 WBC RBC Hgb Hct MCV MCH MCHC RDW Std Deviation RDW Coeff of Abdiel Plt Count MPV Immature Gran % (Auto) Neut % (Auto) Lymph % (Auto) [place] % (Auto) Eos % (Auto) Baso % (Auto) Absolute Neuts (auto) Absolute Lymphs (auto) Nucleated RBC % Diff Path Review Sodium Potassium Chloride Carbon Dioxide Anion Gap BUN Creatinine Estim Creat Clear Calc Est GFR (MDRD) Af Amer Est GFR (MDRD) Non-Af BUN/Creatinine Ratio Glucose Calcium Total Bilirubin 0.40 Direct Bilirubin 0.16 AST 28 ALT 18 Alkaline Phosphatase 173 H Total Protein 7.2 Albumin 2.3 L Globulin 4.9 H - Other Studies Radiology: [] reviewed Other Studies: [] Route of nutrition/ use of supplements: [] Nutritional Intake: [] IV Site: [] Adams Catheter: [] - Physical Exam General: Alert, Oriented x3, Cooperative, No apparent distress HEENT: Atraumatic, PERRLA, EOMI Neck: Supple, No Nodes Lungs: Clear to auscultation, Normal air movement Cardiovascular: Regular rate, Regular Rhythm Abdomen: Soft, Non Tender, Non-Distended Extremities: Edema Skin: No rashes IV Site: Peripheral Musculoskeletal: - - swelling, mild tenderness in wrists and ankles Neurological: Cranial nerves II-XII grossly intact - Assessment/Plan Antibiotics: [] Assessment/Plan: [] Active and Suspected Problems (Last Updated 07/29/19 @ 14:10 by Qian Olmos) Cellulitis (Acute) Acute onset pain/swelling in wrists and ankles with h/o gout. Seems most like gout given timing and location. Unlikely to have multiple simultaneous septic joints. No fever, normal wbc. Ok for home on 2 weeks po doxy to cover possible bacterial source as we do not have definitive dx. Will follow, thank you, d/w primary team.
[2020-02-04] MEDS: oxyCODONE 5 MG Tablet 10 MG PO (19:36)
[2020-02-04] MEDS: Mirtazapine 15 MG Tablet 7.5 MG PO (22:01)
[2020-02-04] MEDS: Atorvastatin Calcium 80 MG Tablet PO (22:02)
[2020-02-05] MEDS: dexAMETHasone 4 MG/ML Vial IV ×3 (00:09→11:47)
[2020-02-05] MEDS: 0.9% Normal Saline 1,000 ML 100 ML IV (02:44)
[2020-02-05 02:49] VITALS: BP 159/67; PULSE 53; RESP 18; TEMP 36.7; O2SAT 99
[2020-02-05] MEDS: Cefazolin 2 GM in 0.9% Normal Saline 100 ML IV (05:47)
[2020-02-05 07:02] LABS: Vancomycin, Trough Level 20.4 ug/mL (5.0-15.0)
[2020-02-05 08:25] VITALS: BP 156/60; PULSE 50; RESP 18; TEMP 36.6; O2SAT 98
[2020-02-05] MEDS: APIXABAN 5 MG TABLET PO (08:28)
[2020-02-05] MEDS: Tamsulosin HCl 0.4 MG Capsule PO (08:28)
[2020-02-05] MEDS: Pantoprazole Sodium 20 MG Tablet PO (08:28)
[2020-02-05] MEDS: Citalopram 20 MG Tablet PO (08:28)
[2020-02-05] MEDS: Allopurinol 300 MG Tablet PO (08:28)
[2020-02-05 10:11] VITALS: BP 156/60; PULSE 50
[2020-02-05] MEDS: Metoprolol Tartrate 50 MG Tablet PO (10:11)
--- NOTE | 2020-02-05 10:42 | PCM.RX.CS ---
Consult Pharmacy has been consulted to manage selected antiobiotic: Vancomycin Type of Consult: Follow-up Suspected Infection: Skin/Soft tissue Prior Doses of Antibiotics Received/Current Regimen: Medications Vancomycin 1500 mg IV q12h starting 02/05/20 1900 Discontinued Medications Vancomycin HCl 1,750 mg/ (Sodium Chloride) 535 mls @ 250 mls/hr IV Q12H [facility] Last Admin: 02/05/20 06:54 Dose: Infused Documented by: Labs: Sodium 140 mmol/L (136-145) 02/04/20 06:35 Potassium 4.5 mmol/L (3.5-5.1) 02/04/20 06:35 Chloride 109 mmol/L (98-107) H 02/04/20 06:35 Carbon Dioxide 25.0 mmol/L (21.0-32.0) 02/04/20 06:35 Anion Gap 6 (5-15) 02/04/20 06:35 BUN 23 mg/dL (7-18) H 02/04/20 06:35 Creatinine 1.39 mg/dL (0.70-1.30) H 02/04/20 06:35 Est GFR (MDRD) Af Amer 66 mL/min (>60) 02/04/20 06:35 Est GFR (MDRD) Non-Af 54 mL/min (>60) L 02/04/20 06:35 BUN/Creatinine Ratio 16.5 RATIO (10-20) 02/04/20 06:35 Glucose 162 mg/dL (74-106) H 02/04/20 06:35 Vancomycin Trough 20.4 ug/mL (5.0-15.0) H 02/05/20 06:10 Weight used for dosin kg Estimated Creatinine Clearance: 72 mls/min Goal Trough: 15-20 mcg/mL Pharmacy Plan for Drug Dosing: Pharmacy Service will continue to monitor and adjust dosing as required. Vancomycin trough level returned 02/05/20629 at 20.4 which is slightly over goal of 15-20. Dose will be reduced to 1500mg IV q12h per renal function change. A trough will be ordered for prior to 4th dose of new regimen. Follow-Up Labs: Trough Vancomycin - draw 30 minutes before 4th dose Labs to be done on [date and time ordered]: 02/07/20 0630
--- NOTE | 2020-02-05 11:09 | DCINST_ITS ---
- Discharge Diagnoses Current Active Problems: Current Active and Chronic Problems (Last Updated 07/29/19 @ 14:10 by Qian Olmos) Cellulitis (Acute) Polyarthritis (Acute) Atherosclerotic heart disease of [place] coronary artery without angina pectoris (Chronic) Atrial fibrillation (Chronic) Pure hypercholesterolemia (Chronic) Essential hypertension (Chronic) Anxiety and depression (Chronic) CKD (chronic kidney disease), stage III (Chronic) GERD (gastroesophageal reflux disease) (Chronic) Obstructive sleep apnea (Chronic) Morbid obesity (Chronic) Depression (Chronic) You will use the following diet at home:: Cardiac Your food should be the consistency of: Regular Your liquids should be the consistency of: Regular/Thin Discharge Activity: Return to Normal Activity Allergies/Adverse Reactions: Allergies bee venom protein (honey bee) Allergy (Verified 01/31/20 19:48) Hives amlodipine Adverse Reaction (Severe, Verified 02/02/20 14:43) severe swelling in hands and feet spider venom Adverse Reaction (Verified 01/31/20 19:48) Other Medications to take at Discharge Citalopram [Celexa] 20 mg PO DAILY 09/21/14 Metoprolol Tartrate [Lopressor (beta kiki)] 50 mg PO BID 09/21/14 Multivitamins,Therapeutic [Multivitamin] 1 tab PO DAILY 09/21/14 Esomeprazole Mag Trihydrate [Nexium] 20 mg PO DAILY 05/18/19 Tamsulosin HCl 0.4 mg PO DAILY 05/18/19 apixaban 5 mg tablet 5 mg PO BID #180 tab 07/02/19 atorvastatin 80 mg tablet 80 mg PO QHS #30 tab 07/29/19 allopurinol 300 mg tablet 300 mg PO DAILY 01/26/20 Cod Liver Oil 1 cap PO BID 02/03/20 Mirtazapine [Remeron] 7.5 mg PO QHS 02/03/20 Turmeric 400 mg PO DAILY 02/03/20 Doxycycline 100 mg PO BID #28 cap 02/04/20 MethylPREDNISolone DosePak [Medrol DosePak] 4 mg PO UD #1 box 02/05/20 The following prescriptions were given: Doxycycline 100 mg PO BID #28 cap Transmission Status: Received by [id number] MethylPREDNISolone DosePak [Medrol DosePak] 4 mg PO UD #1 box Transmission Status: Pending to [id number] Primary Care Physician: Ziyad Colon MD [Primary Care Provider] - Please follow up with your Primary Care Physician in: 1 week for hospital followup Test Results: Test results from this visit will be discussed in further detail at your follow- up appointment, if applicable.
--- NOTE | 2020-02-05 11:10 | PCM.DC.SUM ---
Discharge Date and Diagnosis - Problem List Patient Problems: Active and Suspected Problems (Last Updated 07/29/19 @ 14:10 by Qian Olmos) Cellulitis (Acute) Polyarthritis (Acute) Date of Admission: 02/03/20 Date of Discharge: 02/05/20 - Primary Discharge Diagnosis Acute Problems: Active Problems (Last Updated 07/29/19 @ 14:10 by Qian Olmos) Cellulitis (Acute) Polyarthritis (Acute) - Secondary Discharge Diagnosis Chronic Problems: Chronic Problems (Last Updated 07/29/19 @ 14:10 by Qian Olmos) Atherosclerotic heart disease of [place] coronary artery without angina pectoris (Chronic) Atrial fibrillation (Chronic) Pure hypercholesterolemia (Chronic) Essential hypertension (Chronic) Anxiety and depression (Chronic) CKD (chronic kidney disease), stage III (Chronic) GERD (gastroesophageal reflux disease) (Chronic) Obstructive sleep apnea (Chronic) Morbid obesity (Chronic) Depression (Chronic) Hospital Course and Treatment Imaging Results: STUDY: MRI RIGHT HAND REASON FOR EXAM: Male, 69 years old. RIGHT hand and wrist swelling/ redness, concern for abscess in MTC area, hx of gout, bilat hand and foot swelling TECHNIQUE: Standardized fat and water weighted pulse sequences were obtained in all 3 orthogonal planes. COMPARISON: X-ray 02/03/2020. FINDINGS: This study is extremely limited due to patient motion on all pulsing sequences. There is marked subcutaneous edema, greater dorsally. There is no demonstrated collection. Mild marrow edema is noted in the carpal bones, most consistent with early degenerative change. Joint space narrowing and spurring of the 1st carpometacarpal joint. Trace marrow edema in the metacarpal heads. Mild erosions in the 5th metacarpal head may represent erosive arthritis. No demonstrated soft tissue mass to indicate gout. No significant joint effusion. Flexor and extensor tendons are grossly intact. No obvious tear. MRI/Upper Ext/No Jt/ wo IMPRESSION: 1. Extremely limited study due to patient motion. 2. Marked soft tissue edema without organized collection. 3. Question erosive arthritis of the 5th metacarpal head. 4. Mild degenerative changes of the carpal bones and 2nd through 4th metacarpal heads and the 1st carpometacarpal joint. Electronically Signed: Christiana Cunningham MD at 17:29 EST Tel , Service support , ID Operations: None Summary of Care Provided: Mr. Montiel is a 69 year old M who presented to the ER on 02/03/2020 with a swollen R arm. He first noted right hand, wrist, fingers, and forearm swollen on Sunday AM. He went to see his PCP who gave him an intramuscular steroid injection with suspicion that he had gout and was prescribed doxycycline. He had no improvement with that course. He came to the ER on 01/30, was given norco and discharged. He denied fever, chills, cough, SOB, fatigue, nausea, vomiting, diarrhea. He denies any inciting trauma or skin tears. He did have septic knee several years prior but at that time he had an inciting injury with skin tear. That was successfully treated by Dr. Batres. He has had gout multiple times in the past, and each of the current areas have been involved in some way, however he has never had it in all of these locations at once. He does take allopurinol 300 mg daily. He does not report any significant diet change recently. An MRI was done and showed some erosive changes in the MCP of 2-5 digits that was suggestive of inflammatory arthritis and his CRP and ESR were markedly elevated. He was placed on steroids and ABX. He was seen by ID and they too doubt this is infections but wanted him to complete the course of doxycycline. His had improved markedly over the 48 hrs he was admitted and he was discharged and instructed to complete his home doxy but to take with 8oz of H2O and sit upright for about 30 min after taking and a medrol dose pack. VIVIANE, RF and Anti-CCP Ab were pending at d/c and will need f/u by PCP. He most likely will need referral to Rheum if his markers are elevated. He was d/c home in stable condition. Discharge Dx R Hand Swelling and Pain Gout vs acute infection CAD PAF LILI MO HTN BPH HPL Depression Anxiety GERD CKD stage 3 Discharge Time > 31' Patient Problems: Active and Suspected Problems (Last Updated 07/29/19 @ 14:10 by Qian Olmos) Cellulitis (Acute) Polyarthritis (Acute) Subjective: Pt states that he overall feeling much better but hand is still stiff and sore. - Physical Exam Vitals/I&O's: Vital Signs Temp Pulse Resp BP Pulse Ox 97.8 F 50 L 18 156/60 H 98 02/05/20 08:25 02/05/20 10:11 02/05/20 08:25 02/05/20 10:11 02/05/20 08:25 Oxygen Delivery Method Room Air Weight: 140 kg Body Mass Index (BMI) 45.6 Intake and Output for Last 24 Hours 02/03/20 02/04/20 02/05/20 23:59 23:59 23:59 Intake Total 2247.50 / 2247.50 3080.00 / 3680.00 2118.34 / 2118.34 Output Total 750 / 750 1100 / 1100 375 / 375 Balance 1497.50 / 1497.50 1980.00 / 2580.00 1743.34 / 1743.34 General: Alert, Oriented x3, Cooperative, No apparent distress, Well developed, Well nourished HEENT: Atraumatic, PERRLA, EOMI, Normocephalic, EAC Clear Oral: Moist Mucosa, No Gingival or Mucosal Lesions/ Ulcerations, - - no thrush Neck: Supple, Trachea Midline, Thyroid Normal Size and Texture Lungs: Clear to auscultation, Normal air movement, No rhonchi, No wheeze, No rales Cardiovascular: Regular rate, Regular Rhythm, Normal S1, Normal S2, No murmurs, No Ectopic Activity, No rub noted, No Gallop Abdomen: Bowel Sounds Present, Soft, Non Tender, Non-Distended, Obese Extremities: No clubbing, No cyanosis, Capillary Refill Less than 3 Seconds, Edema - R hand-mild, Peripheral Pulses Normal Skin: No rashes, No breakdown Musculoskeletal: No Muscle Wasting, Arthritic Changes, Tenderness - R hand primarily at 2nd and 3rd MCP Lymphatic: No Cervical, Supraclavicular, or Inguinal Adenopathy Neurological: Cranial nerves II-XII grossly intact, Neuro grossly intact Psych/Mental Status: Normal Affect, Appropriate Laboratory Results 02/03/20 11:10: Diff Path Review Reviewed 02/05/20 06:10: Vancomycin Trough 20.4 H Current Medications Allopurinol (Allopurinol 300 Mg Tablet) 300 mg PO DAILY [facility] [place] Last Admin: 02/05/20 08:28 Dose: 300 mg Documented by: Apixaban (Apixaban 5 Mg Tablet) 5 mg PO BID [facility] [place] Last Admin: 02/05/20 08:28 Dose: 5 mg Documented by: Atorvastatin Calcium (Atorvastatin Calcium 80 Mg Tablet) 80 mg PO QHS [facility] [place] Last Admin: 02/04/20 22:02 Dose: 80 mg Documented by: Citalopram Hydrobromide (Citalopram 20 Mg Tablet) 20 mg PO DAILY [facility] [place] Last Admin: 02/05/20 08:28 Dose: 20 mg Documented by: Dexamethasone Sodium Phosphate (Dexamethasone 4 Mg/Ml Vial) 4 mg IV Q6 [facility] [place] Last Admin: 02/05/20 05:47 Dose: 4 mg Documented by: Sodium Chloride () 1,000 mls @ 100 mls/hr IV .Q10H [facility] [place] Last Infusion: 02/05/20 09:58 Dose: 100 mls/hr Documented by: Cefazolin Sodium 2 gm/ Sodium (Chloride) 110 mls @ 150 mls/hr IV Q8 [facility] [place] Last Infusion: 02/05/20 06:31 Dose: Infused Documented by: Sodium Chloride () 250 mls @ 15 mls/hr IV .[id number] PRN PRN Reason: Saline Flush Sodium Chloride () 250 mls @ 15 mls/hr IV .[id number] PRN PRN Reason: Additional IVPB Infusion Vancomycin IV Pharmacy to Dose (1 ea/ Sodium Chloride) 500 mls @ 250 mls/hr IV X1 PRN; Protocol PRN Reason: Rx to Dose Vancomycin HCl 1,500 mg/ (Sodium Chloride) 530 mls @ 250 mls/hr IV Q12H [facility] [place] Metoprolol Tartrate (Metoprolol Tartrate 50 Mg Tablet) 50 mg PO BID [facility] [place] Last Admin: 02/05/20 10:11 Dose: 50 mg Documented by: Mirtazapine (Mirtazapine 15 Mg Tablet) 7.5 mg PO QHS [facility] [place] Last Admin: 02/04/20 22:01 Dose: 7.5 mg Documented by: Morphine Sulfate (Morphine 4 Mg/Ml Syringe) 4 mg IV Q3H PRN PRN PRN Reason: Pain Score 6-10 Last Admin: 02/03/20 16:24 Dose: 4 mg Documented by: Oxycodone HCl (Oxycodone 5 Mg Tablet) 10 mg PO Q4H PRN PRN PRN Reason: Pain Score 4-5 Last Admin: 02/04/20 19:36 Dose: 10 mg Documented by: Pantoprazole Sodium (Pantoprazole Sodium 20 Mg Tablet) 20 mg PO DAILY [facility] [place] Last Admin: 02/05/20 08:28 Dose: 20 mg Documented by: Sodium Chloride (0.9% Saline Lock 10 Ml Syringe) 2 - 6 ml IV UD PRN PRN Reason: Pediatric Saline Flush Last Admin: 02/04/20 13:14 Dose: 6 ml Documented by: Tamsulosin HCl (Tamsulosin Hcl 0.4 Mg Capsule) 0.4 mg PO DAILY@0830 [facility] [place] Last Admin: 02/05/20 08:28 Dose: 0.4 mg Documented by: Discharge Activity: Return to Normal Activity Home Medications: Medications to take at Discharge Citalopram [Celexa] 20 mg PO DAILY 09/21/14 Metoprolol Tartrate [Lopressor (beta kiki)] 50 mg PO BID 09/21/14 Multivitamins,Therapeutic [Multivitamin] 1 tab PO DAILY 09/21/14 Esomeprazole Mag Trihydrate [Nexium] 20 mg PO DAILY 05/18/19 Tamsulosin HCl 0.4 mg PO DAILY 05/18/19 apixaban 5 mg tablet 5 mg PO BID #180 tab 07/02/19 atorvastatin 80 mg tablet 80 mg PO QHS #30 tab 07/29/19 allopurinol 300 mg tablet 300 mg PO DAILY 01/26/20 Cod Liver Oil 1 cap PO BID 02/03/20 Mirtazapine [Remeron] 7.5 mg PO QHS 02/03/20 Turmeric 400 mg PO DAILY 02/03/20 Doxycycline 100 mg PO BID #28 cap 02/04/20 MethylPREDNISolone DosePak [Medrol DosePak] 4 mg PO UD #1 box 02/05/20 Following Prescriptions Were Given to Patient: Doxycycline 100 mg PO BID #28 cap Transmission Status: Received by [id number] MethylPREDNISolone DosePak [Medrol DosePak] 4 mg PO UD #1 box Transmission Status: Pending to [id number] Primary Care Physician: Isaiah,Ziyad, MD [Primary Care Provider] - Please follow up with your Primary Care Physician in: 1 week for hospital followup Medical Necessity - Tobacco Use Smoking Status: Former smoker Tobacco Use: Non-smoker Meaningful Use Info Meaningful Use Diagnoses (Choose all that apply): None applicable Inpatient E&M: 73244 Disch Hosp
[2020-02-05 13:09] LABS: Rheumatoid Factor < 10.0 IU/mL (<15)
[2020-02-05 14:50] VITALS: BP 135/54; PULSE 50; RESP 18; TEMP 36.6; O2SAT 96
--- NOTE | 2020-02-06 15:16 | CASEMGMT ---
Addendum entered by Guera Lorenzo 02/06/20 15:27: Patient return called states he is doing ok but did not received script for steroid. Script was sent electronically to [facility]. RN CM called [facility] and confirmed that they received script today and are filling it. RN CM called patient back and updated with script getting filled at this time. Patient had no further questions or concerns at this time. Original Note: RN CM Discharge Follow-up Phone Call: AUNG: Griffin Strata: 3 Call Date: 02/06/20 Discharge Date: 02/05/20 Time of Call: 1515 Duration: 1 min Admitting Diagnosis: Cellulitis right hand RN CM attempted to complete follow-up phone call after recent hospitalization. No answer, voice message left with return contact information. Patient had follow-up appt scheduled prior to discharge with PCP for 02/12
[2020-02-09 04:18] LABS: CCP IgG Antibodies 7 units (0-19)
[2020-02-09 13:04] LABS: ANTINUCLEAR ANTIBODIES DIRECT Negative (Negative)
== END 2020-02-05 15:20 | disposition home or self-care (01) | DRG 554 ==
LOC: ED 11:58 → MS3 15:02
PROVIDERS: Physician Assistant; Admitting Provider Internal Medicine; Emergency Provider Emergency Medicine; PCP Family Medicine; Visit Provider Internal Medicine
DX: M10.9 Gout, unspecified (principal); Z68.42 Body mass index [BMI] 45.0-49.9, adult; M13.0 Polyarthritis, unspecified; M79.89 Other specified soft tissue disorders; M79.641 Pain in right hand; I12.9 Hypertensive chronic kidney disease with stage 1 through stage 4 chronic kidney disease, or unspecified chronic kidney disease; N18.30 Chronic kidney disease, stage 3 unspecified; I25.10 Atherosclerotic heart disease of native coronary artery without angina pectoris; I48.0 Paroxysmal atrial fibrillation; E78.00 Pure hypercholesterolemia, unspecified; N40.0 Benign prostatic hyperplasia without lower urinary tract symptoms; E66.01 Morbid (severe) obesity due to excess calories; G47.33 Obstructive sleep apnea (adult) (pediatric); K21.9 Gastro-esophageal reflux disease without esophagitis; F32.9 Major depressive disorder, single episode, unspecified; F41.9 Anxiety disorder, unspecified; Z79.01 Long term (current) use of anticoagulants; Z79.899 Other long term (current) drug therapy; Z87.891 Personal history of nicotine dependence; Z96.651 Presence of right artificial knee joint
CPT/HCPCS: 36415; 73110; 73130; 73218; 80048; 80076; 80202; 83880; 84484; 84550; 85025; 85652; 86038; 86140; 86200; 86225; 86235; 86431; 93005; 96374; 96375; 97162; 97166; 99285; J7030; J7040; A4216; J2405

== ENCOUNTER → 2020-03-02 09:59 | Outpatient (CLI) | payer MEDICARE, OTHER, SELFPAY ==
[2020-02-03 15:16] VITALS: BMI 45.6
[2020-03-02 12:14] LABS: Absolute Lymphocyte Count 0.96 X10^3/uL (0.83-4.51); Basophil# 0.02 X10^3/uL; Basophil% 0.3 % (0-1); Eosinophil# 0.29 X10^3/uL; Eosinophils% 4.8 % (0-5); Hematocrit 40.9 % (40-54); Hemoglobin 12.6 g/dL (13.0-16.5); Lymphocyte # 0.96 X10^3/ul (4.0); Lymphocyte % 15.9 % (19-41); Mean Corp Hgb Conc 30.8 g/dL (32-36); Mean Corpuscular Hgb 28.3 pg (27.0-32.0); Mean Corpuscular Volume 91.9 fL (80-94); Mean Platelet Vol. 11.1 fl (6.2-12.0); Monocyte# 0.72 X10^3/uL; Monocyte% 11.9 % (0-10); NRBC Flagged by Analyzer 0 % (0-5); Neutrophil # 4.02 X10^3/uL (2.7-7.7); Neutrophil % 66.8 % (47-70); Platelet Count 240 K/mm3 (150-450); RBC Distribution Width CV 16.5 % (11.6-14.6); Red Blood Count 4.45 M/mm3 (4.6-6.2)
[2020-03-02 12:40] LABS: Hemoglobin A1c 6.3 % (3.8-5.6)
[2020-03-02 12:55] LABS: ALB/GLOB Ratio 0.7 RATIO (0.9-2.4); AST(SGOT) 21 U/L (15-37); Alanine Aminotransfer ALT/SGPT 19 U/L (16-61); Alkaline Phosphatase 143 U/L (45-117); Anion Gap 6 (5-15); BUN 18 mg/dL (7-18); BUN/Creat Ratio 15.1 RATIO (10-20); Calcium,Total 9.2 mg/dL (8.5-10.1); Chloride 105 mmol/L (98-107); Creatinine, Serum 1.19 mg/dL (0.70-1.30); EST Glomerular Filtration Rate 65 mL/min (>60); Est Glom Filt Rate - Afr Amer 78 mL/min (>60); Globulin 4.1 g/dL (2.2-4.2); Glucose 93 mg/dL (74-106); Protein, Total 7.1 g/dL (6.4-8.2); Sodium Level 139 mmol/L (136-145); Uric Acid 5.1 mg/dL (3.5-7.2)
[2020-03-02 13:02] LABS: Hepatitis B Surface Antibody Non-Reactive; Hepatitis B Surface Antigen Non-Reactive (Nonreactive)
[2020-03-02 13:06] LABS: Cholesterol 133 mg/dL (200); High Density Lipoprotein 46 mg/dL; PSA,Total - Annual Screen 2.61 ng/mL (0.00-4.00); Rheumatoid Factor < 10.0 IU/mL (<15); Triglycerides 92 mg/dL; Very Low Density Lipoprotein 18 mg/dL (5-40)
[2020-03-03 09:34] LABS: Hepatitis C Antibody Non-Reactive (Nonreactive)
[2020-03-03 13:07] LABS: ANTINUCLEAR ANTIBODIES DIRECT Negative (Negative)
[2020-03-05 05:06] LABS: QNTFERON TB Mitogen Value > 10.00 IU/mL (.); QNTFERON TB Nil Value 0.01 IU/mL (.); QNTFERON TB1+ Ag Value 0.02 IU/mL (.); QNTFERON TB2+ Ag Value 0.02 IU/mL (.)
[2020-03-05 07:47] LABS: Hepatitis B Core AB IgM Negative (Negative); QNTIFERON TB Positive Criteria Negative (Negative)
== END ==
PROVIDERS: PCP Family Medicine; Referring Provider Internal Medicine Rheumatology; Visit Provider Internal Medicine Rheumatology
DX: M06.4 Inflammatory polyarthropathy (principal); M18.0 Bilateral primary osteoarthritis of first carpometacarpal joints; M17.0 Bilateral primary osteoarthritis of knee; K21.9 Gastro-esophageal reflux disease without esophagitis; I48.0 Paroxysmal atrial fibrillation; I12.9 Hypertensive chronic kidney disease with stage 1 through stage 4 chronic kidney disease, or unspecified chronic kidney disease; N18.9 Chronic kidney disease, unspecified; E78.5 Hyperlipidemia, unspecified; R73.03 Prediabetes; M25.40 Effusion, unspecified joint; G47.33 Obstructive sleep apnea (adult) (pediatric); N40.0 Benign prostatic hyperplasia without lower urinary tract symptoms; F32.9 Major depressive disorder, single episode, unspecified; F41.9 Anxiety disorder, unspecified; Z12.5 Encounter for screening for malignant neoplasm of prostate
CPT/HCPCS: 36415; 80053; 80061; 83036; 84153; 84550; 85025; 86038; 86140; 86431; 86480; 86705; 86706; 86803; 87340; G0103

== ENCOUNTER → 2020-05-07 12:38 | Outpatient (CLI) | payer MEDICARE, OTHER, SELFPAY ==
[2020-02-03 15:16] VITALS: BMI 45.6
[2020-05-07 14:52] LABS: Absolute Lymphocyte Count 0.73 X10^3/uL (0.83-4.51); Absolute Neutrophil Count 11.9 X10^3/uL (2.0-7.7); Basophil# 0.04 X10^3/uL; Basophil% 0.3 % (0-1); Eosinophil# 0.22 X10^3/uL; Eosinophils% 1.5 % (0-5); Hematocrit 40.9 % (40-54); Hemoglobin 12.6 g/dL (13.0-16.5); Lymphocyte # 0.73 X10^3/ul (4.0); Lymphocyte % 4.9 % (19-41); Mean Corp Hgb Conc 30.8 g/dL (32-36); Mean Corpuscular Hgb 28.3 pg (27.0-32.0); Mean Corpuscular Volume 91.7 fL (80-94); Mean Platelet Vol. 11.1 fl (6.2-12.0); Monocyte# 1.94 X10^3/uL; Monocyte% 13.1 % (0-10); NRBC Flagged by Analyzer 0 % (0-5); Neutrophil # 11.87 X10^3/uL (2.7-7.7); Neutrophil % 79.8 % (47-70); POSITIVE DIFFERENTIAL YES; Platelet Count 187 K/mm3 (150-450); RBC Distribution Width CV 17.6 % (11.6-14.6); RBC Distribution Width SD 59.8 fl (35.1-43.9); Red Blood Count 4.46 M/mm3 (4.6-6.2); White Blood Count 14.9 K/mm3 (4.4-11.0)
[2020-05-07 15:03] LABS: Differential Indicated SCAN CRITERIA MET
[2020-05-07 15:12] LABS: ALB/GLOB Ratio 0.6 RATIO (0.9-2.4); AST(SGOT) 20 U/L (15-37); Alanine Aminotransfer ALT/SGPT 14 U/L (16-61); Albumin, Serum 2.7 g/dL (3.2-5.0); Alkaline Phosphatase 158 U/L (45-117); Anion Gap 7 (5-15); BUN 25 mg/dL (7-18); BUN/Creat Ratio 11.7 RATIO (10-20); Calcium,Total 9.2 mg/dL (8.5-10.1); Chloride 104 mmol/L (98-107); Creatinine, Serum 2.13 mg/dL (0.70-1.30); EST Glomerular Filtration Rate 33 mL/min (>60); Est Glom Filt Rate - Afr Amer 40 mL/min (>60); Globulin 4.5 g/dL (2.2-4.2); Glucose 86 mg/dL (74-106); Potassium 3.7 mmol/L (3.5-5.1); Protein, Total 7.2 g/dL (6.4-8.2); Sodium Level 137 mmol/L (136-145)
[2020-05-07 15:28] LABS: Differential Comment SCANNED
[2020-05-11 10:07] LABS: Pathologist Review Reviewed
== END ==
PROVIDERS: PCP Family Medicine; Visit Provider Family Medicine
DX: N39.0 Urinary tract infection, site not specified (principal)
CPT/HCPCS: 36415; 80053; 85025; 87077; 87086; 87088; 87186

== ENCOUNTER → 2020-05-07 12:41 | Outpatient (CLI) | payer MEDICARE, OTHER, SELFPAY ==
[2020-02-03 15:16] VITALS: BMI 45.6
--- NOTE | 2020-05-07 12:47 | RAD_ITS ---
STUDY: X-RAY CHEST REASON FOR EXAM: Male, 69 years old. Chest pain TECHNIQUE: Frontal and lateral views of the chest COMPARISON: 07/24/19 FINDINGS: The lungs are clear. There are no pleural effusions. There is no pneumothorax. The heart is normal in size. The visualized osseous structures are within normal limits. RAD/Chest PA and Lateral IMPRESSION: No acute thoracic pathology. Electronically Signed: John Eldridge MD at 17:13 EST Tel , Service support ,
== END ==
PROVIDERS: PCP Family Medicine; Referring Provider Family Medicine; Visit Provider Family Medicine
DX: R07.9 Chest pain, unspecified (principal); N39.0 Urinary tract infection, site not specified
CPT/HCPCS: 36415; 71046; 80053; 84550; 85025; 87077; 87086; 87088; 87186

== ENCOUNTER → 2020-06-28 10:04 | Outpatient (CLI) | payer MEDICARE, OTHER, SELFPAY ==
[2020-02-03 15:16] VITALS: BMI 45.6
[2020-06-28 12:27] LABS: Absolute Lymphocyte Count 1.16 X10^3/uL (0.83-4.51); Absolute Neutrophil Count 5.8 X10^3/uL (2.0-7.7); Basophil# 0.06 X10^3/uL; Basophil% 0.7 % (0-1); Eosinophil# 0.21 X10^3/uL; Eosinophils% 2.5 % (0-5); Hematocrit 41.6 % (40-54); Hemoglobin 12.9 g/dL (13.0-16.5); Lymphocyte # 1.16 X10^3/ul (0.83-4.51); Lymphocyte % 14.1 % (19-41); Mean Corpuscular Hgb 29.4 pg (27.0-32.0); Mean Corpuscular Volume 94.8 fL (80-94); Mean Platelet Vol. 11.4 fl (6.2-12.0); Monocyte# 1.02 X10^3/uL; Monocyte% 12.4 % (0-10); NRBC Flagged by Analyzer 0 % (0-5); Neutrophil # 5.78 X10^3/uL (2.7-7.7); Neutrophil % 70.1 % (47-70); Platelet Count 211 K/mm3 (150-450); RBC Distribution Width CV 17.2 % (11.6-14.6); RBC Distribution Width SD 60.6 fl (35.1-43.9); Red Blood Count 4.39 M/mm3 (4.6-6.2); White Blood Count 8.3 K/mm3 (4.4-11.0)
[2020-06-28 13:03] LABS: ALB/GLOB Ratio 0.8 RATIO (0.9-2.4); AST(SGOT) 14 U/L (15-37); Alanine Aminotransfer ALT/SGPT 15 U/L (16-61); Albumin, Serum 3.1 g/dL (3.2-5.0); Alkaline Phosphatase 115 U/L (45-117); Anion Gap 9 (5-15); BUN 23 mg/dL (7-18); BUN/Creat Ratio 15.4 RATIO (10-20); Calcium,Total 9.1 mg/dL (8.5-10.1); Chloride 109 mmol/L (98-107); Creatinine, Serum 1.49 mg/dL (0.70-1.30); EST Glomerular Filtration Rate 50 mL/min (>60); Est Glom Filt Rate - Afr Amer 60 mL/min (>60); Glucose 84 mg/dL (74-106); Potassium 3.9 mmol/L (3.5-5.1); Protein, Total 7.1 g/dL (6.4-8.2); Sodium Level 141 mmol/L (136-145)
== END ==
PROVIDERS: PCP Family Medicine; Referring Provider Internal Medicine Rheumatology; Visit Provider Internal Medicine Rheumatology
DX: M06.4 Inflammatory polyarthropathy (principal); M18.0 Bilateral primary osteoarthritis of first carpometacarpal joints; M17.0 Bilateral primary osteoarthritis of knee; I48.0 Paroxysmal atrial fibrillation; I12.9 Hypertensive chronic kidney disease with stage 1 through stage 4 chronic kidney disease, or unspecified chronic kidney disease; N18.9 Chronic kidney disease, unspecified; E78.5 Hyperlipidemia, unspecified; G47.33 Obstructive sleep apnea (adult) (pediatric); N40.0 Benign prostatic hyperplasia without lower urinary tract symptoms; K21.9 Gastro-esophageal reflux disease without esophagitis; F32.9 Major depressive disorder, single episode, unspecified; F41.9 Anxiety disorder, unspecified; Z79.899 Other long term (current) drug therapy
CPT/HCPCS: 36415; 80053; 85025

== ENCOUNTER → 2020-09-14 10:33 | Outpatient (CLI) | payer MEDICARE, OTHER, SELFPAY ==
[2020-02-03 15:16] VITALS: BMI 45.6
[2020-09-14 12:09] LABS: Absolute Lymphocyte Count 1.15 X10^3/uL (0.83-4.51); Absolute Neutrophil Count 4.1 X10^3/uL (2.0-7.7); Basophil# 0.03 X10^3/uL; Basophil% 0.5 % (0-1); Eosinophils% 3.1 % (0-5); Hematocrit 42.7 % (40-54); Hemoglobin 13.6 g/dL (13.0-16.5); Lymphocyte # 1.15 X10^3/ul (0.83-4.51); Lymphocyte % 18.1 % (19-41); Mean Corp Hgb Conc 31.9 g/dL (32-36); Mean Corpuscular Hgb 30.1 pg (27.0-32.0); Mean Corpuscular Volume 94.5 fL (80-94); Mean Platelet Vol. 11.3 fl (6.2-12.0); Monocyte# 0.89 X10^3/uL; NRBC Flagged by Analyzer 0 % (0-5); Neutrophil # 4.07 X10^3/uL (2.7-7.7); Neutrophil % 63.8 % (47-70); Platelet Count 192 K/mm3 (150-450); RBC Distribution Width CV 15.3 % (11.6-14.6); RBC Distribution Width SD 52.9 fl (35.1-43.9); Red Blood Count 4.52 M/mm3 (4.6-6.2); White Blood Count 6.4 K/mm3 (4.4-11.0)
[2020-09-14 12:48] LABS: ALB/GLOB Ratio 0.8 RATIO (0.9-2.4); AST(SGOT) 22 U/L (15-37); Alanine Aminotransfer ALT/SGPT 18 U/L (16-61); Albumin, Serum 3.2 g/dL (3.2-5.0); Alkaline Phosphatase 128 U/L (45-117); Anion Gap 6 (5-15); BUN 25 mg/dL (7-18); BUN/Creat Ratio 15.2 RATIO (10-20); Calcium,Total 8.9 mg/dL (8.5-10.1); Chloride 109 mmol/L (98-107); Creatinine, Serum 1.64 mg/dL (0.70-1.30); EST Glomerular Filtration Rate 45 mL/min (>60); Est Glom Filt Rate - Afr Amer 54 mL/min (>60); Globulin 3.8 g/dL (2.2-4.2); Glucose 87 mg/dL (74-106); Potassium 4.1 mmol/L (3.5-5.1); Sodium Level 142 mmol/L (136-145)
== END ==
PROVIDERS: PCP Family Medicine; Referring Provider Internal Medicine Rheumatology; Visit Provider Internal Medicine Rheumatology
DX: M06.4 Inflammatory polyarthropathy (principal); M18.0 Bilateral primary osteoarthritis of first carpometacarpal joints; M17.0 Bilateral primary osteoarthritis of knee; I48.0 Paroxysmal atrial fibrillation; I12.9 Hypertensive chronic kidney disease with stage 1 through stage 4 chronic kidney disease, or unspecified chronic kidney disease; N18.9 Chronic kidney disease, unspecified; E78.5 Hyperlipidemia, unspecified; K21.9 Gastro-esophageal reflux disease without esophagitis; G47.33 Obstructive sleep apnea (adult) (pediatric); N40.0 Benign prostatic hyperplasia without lower urinary tract symptoms; F32.9 Major depressive disorder, single episode, unspecified; F41.9 Anxiety disorder, unspecified; Z79.899 Other long term (current) drug therapy
CPT/HCPCS: 36415; 80053; 85025

== ENCOUNTER → 2020-10-20 09:26 | Outpatient (CLI) | payer MEDICARE, OTHER, SELFPAY ==
[2020-10-13 10:30] VITALS: BMI 46.2
[2020-10-20 11:05] LABS: AST(SGOT) 23 U/L (15-37); Alanine Aminotransfer ALT/SGPT 26 U/L (16-61); Albumin, Serum 3.4 g/dL (3.2-5.0); Alkaline Phosphatase 116 U/L (45-117); Bilirubin, Direct 0.12 mg/dL (0.00-0.30); Cholesterol 135 mg/dL (200); High Density Lipoprotein 41 mg/dL; Protein, Total 7.4 g/dL (6.4-8.2); Triglycerides 168 mg/dL; Very Low Density Lipoprotein 34 mg/dL (5-40)
== END ==
PROVIDERS: PCP Family Medicine; Referring Provider Family Medicine; Visit Provider Internal Medicine Cardiovascular Disease
DX: E78.00 Pure hypercholesterolemia, unspecified (principal)
CPT/HCPCS: 36415; 80061; 80076

== ENCOUNTER → 2020-12-08 | Outpatient (CLI) | payer MEDICARE, OTHER, SELFPAY | END | disposition home or self-care (01) | LOC: LABSPEC 09:48 | PROVIDERS: PCP Family Medicine; Referring Provider Physician Assistant; Visit Provider Physician Assistant | DX: Z11.52 Encounter for screening for COVID-19 (principal) | CPT/HCPCS: 87635; U0005; U0003 ==

== ENCOUNTER 2021-03-16 08:17 | Outpatient (CLI) | payer MEDICARE, OTHER, SELFPAY ==
[2021-03-16 10:15] LABS: Absolute Lymphocyte Count 1.47 X10^3/uL (0.83-4.51); Absolute Neutrophil Count 4.3 X10^3/uL (2.0-7.7); Basophil# 0.04 X10^3/uL; Basophil% 0.6 % (0-1); Eosinophil# 0.23 X10^3/uL; Eosinophils% 3.4 % (0-5); Hematocrit 44.3 % (40-54); Hemoglobin 13.9 g/dL (13.0-16.5); Lymphocyte # 1.47 X10^3/ul (0.83-4.51); Lymphocyte % 21.5 % (19-41); Mean Corp Hgb Conc 31.4 g/dL (32-36); Mean Corpuscular Hgb 29.4 pg (27.0-32.0); Mean Corpuscular Volume 93.9 fL (80-94); Mean Platelet Vol. 11.1 fl (6.2-12.0); Monocyte# 0.79 X10^3/uL; Monocyte% 11.6 % (0-10); NRBC Flagged by Analyzer 0 % (0-5); Neutrophil # 4.27 X10^3/uL (2.7-7.7); Neutrophil % 62.5 % (47-70); Platelet Count 239 K/mm3 (150-450); RBC Distribution Width CV 13.8 % (11.6-14.6); RBC Distribution Width SD 47.8 fl (35.1-43.9); Red Blood Count 4.72 M/mm3 (4.6-6.2); White Blood Count 6.8 K/mm3 (4.4-11.0)
[2021-03-16 11:16] LABS: ALB/GLOB Ratio 0.9 RATIO (0.9-2.4); AST(SGOT) 24 U/L (15-37); Alanine Aminotransfer ALT/SGPT 22 U/L (16-61); Albumin, Serum 3.3 g/dL (3.2-5.0); Alkaline Phosphatase 122 U/L (45-117); Anion Gap 11 (5-15); BUN 20 mg/dL (7-18); BUN/Creat Ratio 11.1 RATIO (10-20); Calcium,Total 9.2 mg/dL (8.5-10.1); Chloride 105 mmol/L (98-107); EST Glomerular Filtration Rate 40 mL/min (>60); Est Glom Filt Rate - Afr Amer 49 mL/min (>60); Globulin 3.8 g/dL (2.2-4.2); Glucose 105 mg/dL (74-106); Potassium 4.5 mmol/L (3.5-5.1); Protein, Total 7.1 g/dL (6.4-8.2); Sodium Level 142 mmol/L (136-145)
== END 2021-03-16 23:59 | disposition short-term general hospital (02) ==
LOC: MFPLAB 08:23
PROVIDERS: PCP Internal Medicine Rheumatology; Referring Provider Internal Medicine Rheumatology; Visit Provider Internal Medicine Rheumatology
DX: M06.4 Inflammatory polyarthropathy (principal); I48.0 Paroxysmal atrial fibrillation; Z79.899 Other long term (current) drug therapy; M18.0 Bilateral primary osteoarthritis of first carpometacarpal joints; M17.0 Bilateral primary osteoarthritis of knee; K21.9 Gastro-esophageal reflux disease without esophagitis; I12.9 Hypertensive chronic kidney disease with stage 1 through stage 4 chronic kidney disease, or unspecified chronic kidney disease; N18.9 Chronic kidney disease, unspecified; G47.33 Obstructive sleep apnea (adult) (pediatric); F41.9 Anxiety disorder, unspecified; F32.9 Major depressive disorder, single episode, unspecified; N40.0 Benign prostatic hyperplasia without lower urinary tract symptoms
CPT/HCPCS: 36415; 80053; 85025

== ENCOUNTER 2021-05-04 09:21 | Outpatient (CLI) | payer MEDICARE, OTHER, SELFPAY ==
[2021-05-04 10:35] LABS: Hematocrit 42.5 % (40-54); Hemoglobin 13.7 g/dL (13.0-16.5); Mean Corp Hgb Conc 32.2 g/dL (32-36); Mean Corpuscular Hgb 30.2 pg (27.0-32.0); Mean Corpuscular Volume 93.8 fL (80-94); Mean Platelet Vol. 10.9 fl (6.2-12.0); Platelet Count 200 K/mm3 (150-450); RBC Distribution Width CV 14.6 % (11.6-14.6); RBC Distribution Width SD 50.5 fl (35.1-43.9); Red Blood Count 4.53 M/mm3 (4.6-6.2); White Blood Count 5.2 K/mm3 (4.4-11.0)
[2021-05-04 11:17] LABS: Anion Gap 5 (5-15); BUN 21 mg/dL (7-18); BUN/Creat Ratio 11.5 RATIO (10-20); Calcium,Total 9.5 mg/dL (8.5-10.1); Chloride 106 mmol/L (98-107); Cholesterol 127 mg/dL (200); Creatinine, Serum 1.82 mg/dL (0.70-1.30); EST Glomerular Filtration Rate 40 mL/min (>60); Est Glom Filt Rate - Afr Amer 48 mL/min (>60); Glucose 116 mg/dL (74-106); High Density Lipoprotein 47 mg/dL; Potassium 4.2 mmol/L (3.5-5.1); Sodium Level 138 mmol/L (136-145); Triglycerides 85 mg/dL; Very Low Density Lipoprotein 17 mg/dL (5-40)
== END 2021-05-04 23:59 | disposition home or self-care (01) ==
LOC: MFPLAB 09:25
PROVIDERS: PCP Nurse Practitioner Family; Referring Provider Nurse Practitioner Family; Visit Provider Nurse Practitioner Family
DX: I10 Essential (primary) hypertension (principal); E78.00 Pure hypercholesterolemia, unspecified; Z12.5 Encounter for screening for malignant neoplasm of prostate
CPT/HCPCS: 36415; 80048; 80061; 84153; 85027; G0103

== ENCOUNTER → 2021-08-31 | Outpatient (CLI) | payer MEDICARE, OTHER, SELFPAY ==
[2021-08-31 12:37] LABS: ALB/GLOB Ratio 0.8 RATIO (0.9-2.4); AST(SGOT) 26 U/L (15-37); Alanine Aminotransfer ALT/SGPT 22 U/L (16-61); Albumin, Serum 3.2 g/dL (3.2-5.0); Alkaline Phosphatase 114 U/L (45-117); Anion Gap 7 (5-15); BUN 26 mg/dL (7-18); Calcium,Total 9.1 mg/dL (8.5-10.1); Chloride 107 mmol/L (98-107); Creatinine, Serum 1.73 mg/dL (0.70-1.30); EST Glomerular Filtration Rate 42 mL/min (>60); Est Glom Filt Rate - Afr Amer 51 mL/min (>60); Globulin 3.9 g/dL (2.2-4.2); Glucose 103 mg/dL (74-106); Potassium 4.6 mmol/L (3.5-5.1); Protein, Total 7.1 g/dL (6.4-8.2); Sodium Level 141 mmol/L (136-145)
[2021-08-31 12:49] LABS: Absolute Lymphocyte Count 1.15 X10^3/uL (0.83-4.51); Absolute Neutrophil Count 4.1 X10^3/uL (2.0-7.7); Basophil# 0.03 X10^3/uL; Basophil% 0.5 % (0-1); Eosinophil# 0.21 X10^3/uL; Eosinophils% 3.3 % (0-5); Hematocrit 43.6 % (40-54); Lymphocyte # 1.15 X10^3/ul (0.83-4.51); Lymphocyte % 18.3 % (19-41); Mean Corp Hgb Conc 32.1 g/dL (32-36); Mean Corpuscular Hgb 30.2 pg (27.0-32.0); Mean Corpuscular Volume 94.2 fL (80-94); Mean Platelet Vol. 10.9 fl (6.2-12.0); Monocyte# 0.83 X10^3/uL; Monocyte% 13.2 % (0-10); NRBC Flagged by Analyzer 0 % (0-5); Neutrophil # 4.05 X10^3/uL (2.7-7.7); Neutrophil % 64.4 % (47-70); Platelet Count 204 K/mm3 (150-450); RBC Distribution Width CV 14.7 % (11.6-14.6); RBC Distribution Width SD 50.9 fl (35.1-43.9); Red Blood Count 4.63 M/mm3 (4.6-6.2); White Blood Count 6.3 K/mm3 (4.4-11.0)
== END | disposition home or self-care (01) ==
LOC: MFPLAB 10:06
PROVIDERS: PCP Nurse Practitioner Family; Visit Provider Internal Medicine Rheumatology
DX: M06.4 Inflammatory polyarthropathy (principal); I48.0 Paroxysmal atrial fibrillation; M18.0 Bilateral primary osteoarthritis of first carpometacarpal joints; M17.0 Bilateral primary osteoarthritis of knee; K21.9 Gastro-esophageal reflux disease without esophagitis; I12.9 Hypertensive chronic kidney disease with stage 1 through stage 4 chronic kidney disease, or unspecified chronic kidney disease; N18.9 Chronic kidney disease, unspecified; E78.5 Hyperlipidemia, unspecified; G47.33 Obstructive sleep apnea (adult) (pediatric); F41.9 Anxiety disorder, unspecified; F32.9 Major depressive disorder, single episode, unspecified; N40.0 Benign prostatic hyperplasia without lower urinary tract symptoms; Z79.899 Other long term (current) drug therapy
CPT/HCPCS: 36415; 80053; 85025

== ENCOUNTER 2021-10-27 15:37 | Inpatient (IN) | payer MEDICARE, OTHER, SELFPAY ==
[2021-10-27] VITALS (11 sets, daily range): BP systolic 126–177; BP diastolic 62–78; PULSE 70–95; RESP 18–20; TEMP 35.8–38.3; O2SAT 92–97; BMI 47.7
--- NOTE | 2021-10-27 15:49 | CT_ITS ---
INDICATION: fLANK PAIN EXAMINATION: CT Abdomen And Pelvis W/O Contrast Injection TECHNIQUE: Helically acquired images were obtained of the abdomen and pelvis without the use of IV contrast. A radiation dose optimization technique was used for this scan. Oral contrast: None. COMPARISON: None FINDINGS: Evaluation of the solid organs and vascular structures is limited without intravenous contrast. Visualized lung bases: Unremarkable Liver: Unremarkable Gallbladder: Unremarkable Spleen: Unremarkable Pancreas: Unremarkable Adrenal Glands: Unremarkable Kidneys: 2 mm nonobstructing stone in the right upper renal pole. Vasculature: Unremarkable GI Tract: Unremarkable Lymphadenopathy: None Peritoneum: No ascites. Bladder: Mildly distended. Reproductive organs: Unremarkable Bones/Soft tissues: There are diffuse degenerative changes of the spine. CT/Abdomen/Pelvis without Cont IMPRESSION: No acute abnormalities in the abdomen or pelvis. Mildly distended bladder. No hydronephrosis. 2 mm nonobstructing stone in the right upper renal pole. Electronically Signed: Shimon Fish MD at 16:55 EDT ,
--- NOTE | 2021-10-27 15:50 | EDS_ITS ---
HPI <ISAURA Johnson - Last Filed: 10/27/21 18:54> History of Present Illness Chief Complaint: Flank Pain Narrative Narrative: 70-year-old male with history of acute kidney disease, morbid obesity, kidney stones, hypertension presents the emergency department with 4 to 5 days of left- sided back pain, worsening pain in his groin area with urination. Patient states the back pain has been improved however every time he tries to use the restroom and urinate he has severe pain to the tip of his penis and throughout his groin. He states that his urine is very dark, he feels like he has to use the restroom however only little amount come out at a time. Patient denies any fevers or chills. Patient denies any nausea or vomiting. On initial assessment, patient was pain-free, states the pain is worse with urinating. [facility] <ISAURA Johnson - Last Filed: 10/27/21 18:54> [facility] Medical History TEODORO (acute kidney injury) Anxiety and depression Atherosclerotic heart disease of [place] coronary artery without angina pectoris Atrial fibrillation Cellulitis CKD (chronic kidney disease), stage III Depression Essential hypertension GERD (gastroesophageal reflux disease) History of left heart catheterization (LHC) (~07/29/19) Morbid obesity Obstructive sleep apnea Paroxysmal atrial fibrillation Pure hypercholesterolemia Septic joint of right knee joint Severe sepsis Viral syndrome Home Medications citalopram 20 mg tablet 20 mg PO DAILY MOOD 09/21/14 [History Last Taken 02/03/20] multivitamin 1 tab PO DAILY SUPPLEMENT 09/21/14 [History Last Taken 02/03/20] esomeprazole magnesium 20 mg capsule,delayed release 20 mg PO DAILY 05/18/19 [History Last Taken 02/03/20] tamsulosin 0.4 mg capsule 0.4 mg PO DAILY 05/18/19 [History Last Taken 02/03/20] cod liver oil 1 cap PO BID arthritis 02/03/20 [History Last Taken 02/03/20] turmeric 400 mg capsule 400 mg PO DAILY arthritis 02/03/20 [History Last Taken 02/03/20] metoprolol tartrate 25 mg tablet 12.5 mg PO BID #180 tabs 10/13/20 [Rx Last Taken Unknown] allopurinol 300 mg tablet 300 mg PO DAILY 04/25/21 [History Last Taken Unknown] hydroxychloroquine 200 mg tablet 200 mg PO BID 04/25/21 [History Last Taken Unknown] mirtazapine 15 mg tablet 15 mg PO QHS sleep 04/25/21 [History Last Taken Unknown] Handicap Placard #1 ea 07/05/21 [Rx Last Taken Unknown] apixaban 5 mg tablet 5 mg PO BID #180 tabs 07/15/21 [Rx Last Taken Unknown] isosorbide mononitrate 60 mg tablet,extended release 24 hr 60 mg PO DAILY #30 tabs 07/25/21 [Rx Last Taken Unknown] ranolazine 500 mg tablet,extended release,12 hr (Ranexa) 500 mg PO BID #60 tabs 09/15/21 [Rx Last Taken Unknown] atorvastatin 80 mg tablet See Rx Instructions .Route .COMPLEX #90 tabs 10/11/21 [Rx Last Taken Unknown] Allergy/AdvReac Type Severity Reaction Status Date / Time bee venom protein (honey bee) Allergy Hives Verified 07/05/21 09:07 amlodipine AdvReac Severe severe Verified 07/05/21 09:07 swelling in hands and feet ranolazine [From Ranexa] AdvReac Severe Swelling Verified 08/08/21 11:34 of penis and urinary obstruction spider venom AdvReac Other Verified 07/05/21 09:07 Family History Father Heart disease Diabetes CAD (coronary artery disease) History of coronary artery bypass surgery Cardiac pacemaker in situ Other Pure hypercholesterolemia Surgical History History of total right knee replacement Social History Smoking Status: Former smoker how long ago did patient quit smokin alcohol intake: never substance use type: does not use caffeine: Yes Type: tea Number of servings: 2 ROS <ISAURA Johnson - Last Filed: 10/27/21 18:54> ROS ED ROS Narrative Constitutional: Negative for fever, chills, weight loss, weakness Eyes: Negative for vision loss, vision change, double vision ENT: Negative for any sore throat, ear pain, congestion Cardiovascular: Negative for any chest pain, tightness, palpitations Respiratory: Negative for any cough, sputum production, hemoptysis, dyspnea, dyspnea on exertion, orthopnea Gastrointestinal: Negative for any vomiting, diarrhea, constipation, blood in stool, blood in vomit. Positive left flank pain, left groin pain : Negative for any urinary frequency, retention, blood in urine. Positive for dysuria, positive for groin pain Muscle skeletal: Negative for any muscle joint pain, stiffness, myalgias, arthralgias, neck pain, back pain Neurological: Negative for any headache, syncope, numbness or tingling, dizziness Skin: Negative for any rashes, lumps, itching, abrasions, lacerations Psychiatric: Negative for any depression, anxiety, stress, suicidal ideation, homicidal ideation Hematologic: Negative for any easy bruising, excessive bruising, easy bleeding Allergies: Negative for any eczema, hives, rash EXAM <ISAURA Johnson - Last Filed: 10/27/21 18:54> Physical Exam Narrative Exam Narrative: Vital signs reviewed. HEET: Head normocephalic atraumatic, TMs clear bilaterally. Posterior pharynx is clear, moist mucous membranes. Nares clear bilaterally. Neck: Supple with no lymphadenopathy or tenderness. No signs of meningismus, ne gative jolt sign. Cardiac: Regular rate and rhythm no murmurs gallops or rubs, equal peripheral pulses bilaterally. Respiratory: Lungs clear to auscultation bilaterally. No chest tenderness. Abdomen: Soft, nontender, nondistended. No abdominal bruit or pulsatile masses. No hepatosplenomegaly Extremities: No peripheral edema, no signs of gross trauma or deformity. Active full range of motion of all extremities. Neuro: Cranial nerves II through XII intact, no focal neurological deficits. Skin: Clean dry and intact with no rash, purpura, petechiae, vesicles or pustules. Backs/flank: No CVA tenderness, no midline spinal tenderness, no deformity. Psych: Normal mood and affect. No SI, HI or acute psychosis. Const Vital Signs: 10/27/21 15:38 Temperature 96.5 F L Temperature Source Temporal Pulse Rate 75 Respiratory Rate 18 Blood Pressure 177/73 H Blood Pressure Mean 107 Pulse Ox 97 Oxygen Delivery Method Room Air Positive well nourished and well developed General Appearance ED: well developed <Dr. Paul Kulkarni MD - Last Filed: 10/27/21 19:03> Physical Exam Const Vital Signs: 10/27/21 15:38 Temperature 96.5 F L Temperature Source Temporal Pulse Rate 75 Respiratory Rate 18 Blood Pressure 177/73 H Blood Pressure Mean 107 Pulse Ox 97 Oxygen Delivery Method Room Air [facility] <Cornell VictorISAURA evans - Last Filed: 10/27/21 18:54> [facility] Lab Data Labs: Laboratory Results - last 24 hr 10/27/21 10/27/21 10/27/21 15:55 15:55 15:55 WBC 11.3 H RBC 4.87 Hgb 14.8 Hct 45.0 MCV 92.4 MCH 30.4 MCHC 32.9 RDW Std Deviation 52.0 H RDW Coeff of Abdiel 15.2 H Plt Count 237 MPV 11.0 Immature Gran % (Auto) 0.300 Neut % (Auto) 79.3 H Lymph % (Auto) 8.0 L [place] % (Auto) 9.6 Eos % (Auto) 2.5 Baso % (Auto) 0.3 Absolute Neuts (auto) 9.0 H Absolute Lymphs (auto) 0.90 Nucleated RBC % 0 Sodium 140 Potassium 4.8 Chloride 107 Carbon Dioxide 26.0 Anion Gap 7 BUN 26 H Creatinine 1.97 H Estim Creat Clear Calc 35.89 Est GFR (MDRD) Af Amer 44 L Est GFR (MDRD) Non-Af 36 L BUN/Creatinine Ratio 13.2 Glucose 113 H Calcium 9.0 Urine Color Yellow Urine Clarity Cloudy Urine pH 6.0 Ur Specific [place] 1.015 Urine Protein 30 H Urine Glucose (UA) Normal Urine Ketones Negative Urine Occult Blood 50 H Urine Nitrite Positive H Urine Bilirubin Negative Urine Urobilinogen Normal Ur Leukocyte Esterase 500 H Urine RBC 10-25 SEEN Urine WBC >100 SEEN Ur Squamous Epith Cells 0-5 SEEN Urine Bacteria 4+ Urine Mucus 0 SEEN Radiography Diagnostic Testing: Clinical Impression(s) from Imaging Studies Abdomen/Pelvis CT 10/27/21 15:49 IMPRESSION: No acute abnormalities in the abdomen or pelvis. Mildly distended bladder. No hydronephrosis. 2 mm nonobstructing stone in the right upper renal pole. Electronically Signed: Shimon Fish MD at 16:55 EDT , Treatment and Re-Evaluation Narrative: Patient arrives in moderate distress secondary to pain in his groin while trying to urinate, patient is having dysuria and only urinating small amounts at a time. Patient did receive a work-up concerning for a renal calculus. Patient's CBC shows a leukocytosis of white blood count 11.3, patient's creatinine was elevated 1.97, patient's baseline is around 1.8. Patient's CAT scan shows no acute abnormalities in the abdomen or pelvis. Distended bladder, no hydronephrosis, 2 mm nonobstructing stone in the right upper renal pole. Patient was unable to fully empty his bladder, there were multiple attempts to place a Adams catheter, a 18 [place], 20 [place], 18 [place] coud?, no staff and was able to pass a catheter into the patient's bladder. Urology was consulted and will come in to see the patient. Patient's urinalysis was positive for infection, a urine culture was sent, IV ceftriaxone was completed. Urologist Dr. Valenzuela came to the emergency department, he was unable to perform a urinary catheter, he now is preparing the patient for a suprapubic catheter. <Dr. Paul Kulkarni MD - Last Filed: 10/27/21 19:03> [facility] Narrative Medical decision making narrative: I have personally performed a face to face assessment of the patient and have reviewed the WILMER Note. I performed a substantive portion of the visit including all aspects of the following. My irvin findings include: History is remarkable for difficulty urinating and discomfort with urination. He also complains of flank pain. He is not a good informant. had to supplement. He does have history of benign prostatic hypertrophy. He denies history of diabetes. He denies history of urinary retention. He denies fever, chills night sweats. He denies nausea or vomiting. Exam is patient appears uncomfortable. He is obese. HEENT exam reveals no acute process. Heart is regular. There is no murmur, gallop or rub. Lungs are clear auscultation. Abdomen is remarkable for tenderness in suprapubic region. There is no CVA tenderness noted. exam reveals circumcised male penis without lesions or discharge. There is no scrotal or testicular swelling. There is no inguinal lymphadenopathy or mass. Medical Decision Making after reviewing CAT scan patient has a significantly dilated bladder after voiding. Suspect the his pain is due to urinary retention and not renal calculi. UA is consistent with infection. Culture was sent. He will receive antibiotics. Renal function reveals slight increase in creatinine from 1.7-1.97. CO2 and anion gap are normal. White count is slightly elevated with no bandemia. Other additions or changes: Plan is to refer to Dr. Mackay who is on-call for urology. Unable to pass coud? or 24 [place] Adams. Patient did experience trauma. Since patient has urinary retention with a bump in his creatinine from baseline Dr. Gutierrez who is on-call for urology was paged. He will see patient and place a Adams. Dr. Valenzuela was unsuccessful in placing Adams. Patient going to the OR of. Lab Data Labs: Laboratory Results - last 24 hr 10/27/21 10/27/21 10/27/21 15:55 15:55 15:55 WBC 11.3 H RBC 4.87 Hgb 14.8 Hct 45.0 MCV 92.4 MCH 30.4 MCHC 32.9 RDW Std Deviation 52.0 H RDW Coeff of Abdiel 15.2 H Plt Count 237 MPV 11.0 Immature Gran % (Auto) 0.300 Neut % (Auto) 79.3 H Lymph % (Auto) 8.0 L [place] % (Auto) 9.6 Eos % (Auto) 2.5 Baso % (Auto) 0.3 Absolute Neuts (auto) 9.0 H Absolute Lymphs (auto) 0.90 Nucleated RBC % 0 Sodium 140 Potassium 4.8 Chloride 107 Carbon Dioxide 26.0 Anion Gap 7 BUN 26 H Creatinine 1.97 H Estim Creat Clear Calc 35.89 Est GFR (MDRD) Af Amer 44 L Est GFR (MDRD) Non-Af 36 L BUN/Creatinine Ratio 13.2 Glucose 113 H Calcium 9.0 Urine Color Yellow Urine Clarity Cloudy Urine pH 6.0 Ur Specific [place] 1.015 Urine Protein 30 H Urine Glucose (UA) Normal Urine Ketones Negative Urine Occult Blood 50 H Urine Nitrite Positive H Urine Bilirubin Negative Urine Urobilinogen Normal Ur Leukocyte Esterase 500 H Urine RBC 10-25 SEEN Urine WBC >100 SEEN Ur Squamous Epith Cells 0-5 SEEN Urine Bacteria 4+ Urine Mucus 0 SEEN Radiography Diagnostic Testing: Clinical Impression(s) from Imaging Studies Abdomen/Pelvis CT 10/27/21 15:49 IMPRESSION: No acute abnormalities in the abdomen or pelvis. Mildly distended bladder. No hydronephrosis. 2 mm nonobstructing stone in the right upper renal pole. Electronically Signed: Shimon Fish MD at 16:55 EDT , Discharge Plan Triage Chief Complaint: Flank Pain ED Midlevel Provider: [facility] ED Provider: Paul Kulkarni Dx/Rx/DC Orders Clinical Impression: Urinary tract infection in male, CKD (chronic kidney disease), stage III, Paroxysmal atrial fibrillation, Morbid obesity, Acute urinary retention, Benign prostatic hyperplasia Primary Care Provider: Care Physician,No Primary Disposition Disposition: Acute Care Hospital [facility]
[2021-10-27] MEDS: 0.9% Normal Saline 1,000 ML 1000 ML IV (16:06)
[2021-10-27 16:10] LABS: Mucous, Urine 0 SEEN /hpf (<or=2+)
[2021-10-27 16:13] LABS: Color, Urine Yellow (Yellow); Glucose, Dipstick Normal (Normal); Ketone-Dipstick Negative (Negative); Leukocyte Esterase-Dipstick 500 /ul (Negative); Nitrite-Dipstick Positive (Negative); Occult Blood-Urine 50 /ul (Negative); Protein-Dipstick 30 mg/dl (Negative); Specific Gravity, Urine 1.015 (1.002-1.030); Urine Bilirubin Dipstick Negative (Negative); Urine Clarity Cloudy (Clear); Urine Urobilinogen Normal (Normal)
[2021-10-27 16:17] LABS: Basophil# 0.03 X10^3/uL; Basophil% 0.3 % (0-1); Eosinophil# 0.28 X10^3/uL; Eosinophils% 2.5 % (0-5); Hemoglobin 14.8 g/dL (13.0-16.5); Mean Corp Hgb Conc 32.9 g/dL (32-36); Mean Corpuscular Hgb 30.4 pg (27.0-32.0); Mean Corpuscular Volume 92.4 fL (80-94); Monocyte# 1.08 X10^3/uL; Monocyte% 9.6 % (0-10); NRBC Flagged by Analyzer 0 % (0-5); Neutrophil # 8.98 X10^3/uL (2.7-7.7); Neutrophil % 79.3 % (47-70); Platelet Count 237 K/mm3 (150-450); RBC Distribution Width CV 15.2 % (11.6-14.6); Red Blood Count 4.87 M/mm3 (4.6-6.2); White Blood Count 11.3 K/mm3 (4.4-11.0)
[2021-10-27 16:26] LABS: Anion Gap 7 (5-15); BUN 26 mg/dL (7-18); BUN/Creat Ratio 13.2 RATIO (10-20); Chloride 107 mmol/L (98-107); Creatinine, Serum 1.97 mg/dL (0.70-1.30); EST Glomerular Filtration Rate 36 mL/min (>60); Est Glom Filt Rate - Afr Amer 44 mL/min (>60); Estimated Creatinine Clearance 35.89 ml/min; Glucose 113 mg/dL (74-106); Potassium 4.8 mmol/L (3.5-5.1); Sodium Level 140 mmol/L (136-145)
[2021-10-27 16:36] LABS: Red Blood Cells-Urine 10-25 SEEN /hpf (0-5); Squamous Epithelial Cells - UA 0-5 SEEN /hpf (0-5); White Blood Cells >100 SEEN /hpf (0-5)
[2021-10-27 16:37] LABS: Bacteria 4+ /hpf (None Seen)
[2021-10-27] MEDS: Morphine 4 MG/ML Syringe IV (17:45)
[2021-10-27] MEDS: Ceftriaxone 1 GM/50 ML BAG IV (17:57)
[2021-10-27] MEDS: Lidocaine Jelly 2% 20 ML Syringe (URO-JET) 1 APPLIC TOPICAL (18:00)
--- NOTE | 2021-10-27 18:04 | NURSING ---
MULTIPLE ATTEMPTS TO PLACE [facility] WERE UNSUCCESSFUL BY DR THOMPSON, SAADIA HARDY, AND MULTIPLE NURSES. DR KNAPP CONTACTED AND WILL BE COMING IN.
[2021-10-27] MEDS: Lidocaine 1% (20 ml mdv) 20 ML Vial 10 ML INFILT (18:15)
--- NOTE | 2021-10-27 18:30 | ED.RN ---
Dr. Valenzuela at bedside to attempt chong catheter, attempted suprapubic cath, both unsuccessful.
--- NOTE | 2021-10-27 20:11 | EKG12_ITS ---
Test Reason : PRE-OP Blood Pressure : / mmHG Vent. Rate : 090 BPM Atrial Rate : 000 BPM P-R Int : 000 ms QRS Dur : 086 ms QT Int : 336 ms P-R-T Axes : 000 048 053 degrees QTc Int : 411 ms Sinus rhythm Nonspecific ST and T wave abnormality Abnormal ECG Confirmed by KETTY LENZ, HELENA ([id number]), writer editor SAMIR RAMIREZ ([id number]) on 10/31/2021 9:32:29 AM Referred By: PATRICIO Confirmed By:KAYLEE HDEZ MD
--- NOTE | 2021-10-27 21:31 | PCM.HP.STD ---
HPI - General HPI Narrative GUSTAVO HARTMAN, is a 70 M who presents to the hospital with retention of urine he was not able to urinate, in the emergency room several attempts at Adams catheterization were performed and were unsuccessful I gently tried to place a Glidewire but completely unsuccessful do so decided to take the patient to the operating room under controlled situation and perform cystoscopy possible dilation and placement of a Adams catheter. [facility] Medical History TEODORO (acute kidney injury) Anxiety and depression Atherosclerotic heart disease of [place] coronary artery without angina pectoris Atrial fibrillation Cellulitis CKD (chronic kidney disease), stage III Depression Essential hypertension GERD (gastroesophageal reflux disease) History of left heart catheterization (LHC) (~07/29/19) Morbid obesity Obstructive sleep apnea Paroxysmal atrial fibrillation Pure hypercholesterolemia Septic joint of right knee joint Severe sepsis Viral syndrome Home Medications citalopram 20 mg tablet 20 mg PO DAILY MOOD 09/21/14 [History Last Taken 02/03/20] multivitamin 1 tab PO DAILY SUPPLEMENT 09/21/14 [History Last Taken 02/03/20] esomeprazole magnesium 20 mg capsule,delayed release 20 mg PO DAILY 05/18/19 [History Last Taken 02/03/20] tamsulosin 0.4 mg capsule 0.4 mg PO DAILY 05/18/19 [History Last Taken 02/03/20] cod liver oil 1 cap PO BID arthritis 02/03/20 [History Last Taken 02/03/20] turmeric 400 mg capsule 400 mg PO DAILY arthritis 02/03/20 [History Last Taken 02/03/20] metoprolol tartrate 25 mg tablet 12.5 mg PO BID #180 tabs 10/13/20 [Rx Last Taken Unknown] allopurinol 300 mg tablet 300 mg PO DAILY 04/25/21 [History Last Taken Unknown] hydroxychloroquine 200 mg tablet 200 mg PO BID 04/25/21 [History Last Taken Unknown] mirtazapine 15 mg tablet 15 mg PO QHS sleep 04/25/21 [History Last Taken Unknown] Handicap Placard #1 ea 07/05/21 [Rx Last Taken Unknown] apixaban 5 mg tablet 5 mg PO BID #180 tabs 07/15/21 [Rx Last Taken Unknown] isosorbide mononitrate 60 mg tablet,extended release 24 hr 60 mg PO DAILY #30 tabs 07/25/21 [Rx Last Taken Unknown] ranolazine 500 mg tablet,extended release,12 hr (Ranexa) 500 mg PO BID #60 tabs 09/15/21 [Rx Last Taken Unknown] atorvastatin 80 mg tablet See Rx Instructions .Route .COMPLEX #90 tabs 10/11/21 [Rx Last Taken Unknown] oxybutynin chloride 10 mg tablet,extended release 24 hr 10 mg PO DAILY 10/27/21 [History Last Taken Unknown] Allergy/AdvReac Type Severity Reaction Status Date / Time bee venom protein (honey bee) Allergy Hives Verified 10/27/21 19:19 amlodipine AdvReac Severe severe Verified 10/27/21 19:19 swelling in hands and feet ranolazine [From Ranexa] AdvReac Severe Swelling Verified 10/27/21 19:19 of penis and urinary obstruction spider venom AdvReac Other Verified 10/27/21 19:19 Family History Father Heart disease Diabetes CAD (coronary artery disease) History of coronary artery bypass surgery Cardiac pacemaker in situ Other Pure hypercholesterolemia Surgical History History of total right knee replacement Social History Smoking Status: Former smoker how long ago did patient quit smokin alcohol intake: never substance use type: does not use caffeine: Yes Type: tea Number of servings: 2 ROS Constitutional Constitutional: Denies chills, fever(s) or malaise Eyes Eyes: Denies blurry vision or change in vision ENT HEENT: Reports none Cardiovascular Cardiovascular: Denies chest pain or palpitations Respiratory/Chest Respiratory/Chest: Denies cough or shortness of breath with exertion Gastrointestinal Gastrointestinal: Denies abdominal pain, constipation or diarrhea Musculoskeletal Musculoskeletal: Denies back pain, joint stiffness or joint swelling Integumentary Integumentary: Denies dry skin, jaundice, lesions or rash Neurologic Neurologic: Denies confusion, syncope or weakness Psychiatric Psychiatric: Reports none; Denies anxiety or depression Endocrine Endocrinology: Denies excessive sweating, fatigue or flushing Hematologic/Lymphatic Hematologic/Lymphatic: Denies anemia, easy bleeding or easy bruising Vital Signs Vital Signs Vital Signs: 10/27/21 15:38 10/27/21 18:32 10/27/21 18:30 Temperature 96.5 F L 99.1 F 99.1 F Temperature Source Temporal Oral Oral Pulse Rate 75 70 70 Respiratory Rate 18 20 H 20 H Blood Pressure 177/73 H 140/63 H 140/63 H Blood Pressure Mean 107 88 88 Blood Pressure Source Monitor Blood Pressure Position Supine Blood Pressure Location Left Arm Pulse Ox 97 92 92 Oxygen Delivery Method Room Air Room Air Room Air 10/27/21 20:41 Temperature 99.1 F Temperature Source Temporal Pulse Rate 70 Respiratory Rate 18 Blood Pressure 140/62 H Blood Pressure Mean 88 Blood Pressure Source Blood Pressure Position Blood Pressure Location Pulse Ox 92 Oxygen Delivery Method Room Air Weight Weight: 146.51 kg Body Mass Index (BMI) 47.7 Physical Exam Const alert and oriented x3 General Appearance: cooperative HEENT normocephalic, head/scalp atraumatic, EAC's normal and TM's normal bilaterally Eyes PERRL and EOMs intact bilaterally Pupil: sluggish Neck no lymphadenopathy, supple and no JVD General: trachea midline Lymph Lymphatic: no lymphadenopathy noted, lymphedema and lymphadenopathy Resp normal respiratory effort, normal air movement and clear to auscultation bilaterally Cardio regular rate, regular rhythm and peripheral pulses 2+ throughout GI soft to palpation, non-tender and non-distended Extremity normal capillary refill and no clubbing, cyanosis or edema General Extremity: no tenderness to palpation of joints or extremities Skin no rashes or lesions noted General Skin Exam: turgor normal Lesions: no lesions Rashes: no rashes Neuro CN's II-XII intact bilaterally Speech: speech normal Motor Exam: strength 5/5 throughout; Negative for general weakness Psych thought process normal, cooperative and affect normal Appearance: appropriate Results Medical Records Data Attestation: I reviewed the patient's medical records Lab / Micro Data Attestation: I reviewed the patient's lab results. Result Diagrams: 10/27/21 15:55 10/27/21 15:55 Labs: Laboratory Results - last 24 hr 10/27/21 15:55: WBC 11.3 H, RBC 4.87, Hgb 14.8, Hct 45.0, MCV 92.4, MCH 30.4, MCHC 32.9, RDW Std Deviation 52.0 H, RDW Coeff of Abdiel 15.2 H, Plt Count 237, MPV 11.0, Immature Gran % (Auto) 0.300, Neut % (Auto) 79.3 H, Lymph % (Auto) 8.0 L, [place] % (Auto) 9.6, Eos % (Auto) 2.5, Baso % (Auto) 0.3, Absolute Neuts (auto) 9.0 H, Absolute Lymphs (auto) 0.90, Nucleated RBC % 0 10/27/21 15:55: Sodium 140, Potassium 4.8, Chloride 107, Carbon Dioxide 26.0, Anion Gap 7, BUN 26 H, Creatinine 1.97 H, Estim Creat Clear Calc 35.89, Est GFR (MDRD) Af Amer 44 L, Est GFR (MDRD) Non-Af 36 L, BUN/Creatinine Ratio 13.2, Glucose 113 H, Calcium 9.0 10/27/21 15:55: Urine Color Yellow, Urine Clarity Cloudy, Urine pH 6.0, Ur Specific [place] 1.015, Urine Protein 30 H, Urine Glucose (UA) Normal, Urine Ketones Negative, Urine Occult Blood 50 H, Urine Nitrite Positive H, Urine Bilirubin Negative, Urine Urobilinogen Normal, Ur Leukocyte Esterase 500 H, Urine RBC 10-25 SEEN, Urine WBC >100 SEEN, Ur Squamous Epith Cells 0-5 SEEN, Urine Bacteria 4+, Urine Mucus 0 SEEN Radiology Impression Abdomen/Pelvis CT 10/27/21 15:49 IMPRESSION: No acute abnormalities in the abdomen or pelvis. Mildly distended bladder. No hydronephrosis. 2 mm nonobstructing stone in the right upper renal pole. Electronically Signed: Shimon Fish MD at 16:55 EDT , Assessment & Plan Assessment/Plan (1) Acute urinary retention: (2) Membranous urethral stricture: PLAN: Plan to take the patient back to surgery for cystoscopy dilation of urethral stricture and Adams placement
--- NOTE | 2021-10-27 21:34 | PCM.OPRPT ---
Report of Operation Date of Procedure: 10/27/21 Pre-Operative Diagnosis: Urethral stricture and retention of urine Post-Operative Diagnosis: The same Surgery/Procedure Performed:: Cystoscopy placement of a Glidewire through a membranous urethral stricture and dilation of the stricture and placement of a 16 [place] Chong catheter Description of Surgical Findings:: Indication this is a 70-year-old gentleman who has been seen physicians assistant portfolio manager at the [facility] for his urology problems who presented to the emergency room and retention of urine the emergency room physician the nurses tried to place a catheter multiple times but were unsuccessful I gently tried to place a wire into the bladder at the bedside but was completely unsuccessful and the patient was not tolerating the procedure is very painful so I got consent from the patient and his taken back to surgery to place a catheter under anesthesia in a controlled setting. Patient was taken back to the operating room it was transferred to the table he then was placed in dorsolithotomy position. The penis were prepped and draped in usual sterile fashion, I went into the urethra with a 21 [place] rigid cystourethroscope went down the urethra was quite a lot of blood along the course of the urethra but then I got down to the bulbous urethra and I made the turn through the bulbous urethra and found that there was a dense membranous stricture that was across the membranous urethra it was basically in completely closed off there must of been may be a tiny hole that he was seen passing urine through but it was impossible to even find this whole in the posterior aspect of the membranous stricture there was a false passage from the prior attempts of Chong placement this is false passage below the stricture I then named my ureteroscope at the area of the stricture I used a 5 Canadian open-ended Pollack catheter and then gently probed with the end of a 0.038 Glidewire at the area of the whitish stent stricture area and by shear lock the wire went through a tiny gap in the membranous stricture and went through the area after this advanced the Pollack catheter through I pulled back on the syringe confirmed as in the bladder and then over the wire I used a 15 Canadian ureteral balloon dilator and dilated the stricture and after this and then was able to get through the area with a 21 Canadian rigid cystourethroscope into the bladder there was a lot of debris and blood within the bladder I left the wire in place and then over the wire I went in with a 16 Canadian koot[place]ai tip catheter 10 cc was put in the balloon catheter was then pulled back to the hub I then flushed the catheter get all the clots out it was set to gravity drainage patient's anesthetic was versed he was transferred to the PACU in good condition he want to go home with a catheter we will keep him overnight for observation. Surgeon: Cedric Valenzuela Type of Anesthesia: General Drains: 16 fr [place]oot[place]ai tip chong Admit VTE Documentation VTE Present on Admission: No VTE Mechan Device Prophylaxis: SCD's
[2021-10-27] MEDS: Hydroxychloroquine 200 MG Tablet PO (22:59)
[2021-10-27] MEDS: Atorvastatin Calcium 80 MG Tablet PO (22:59)
[2021-10-27] MEDS: Metoprolol Tartrate 25 MG Tablet 12.5 MG PO (22:59)
[2021-10-27] MEDS: Ranolazine 500 MG Tablet PO (22:59)
[2021-10-27] MEDS: Ciprofloxacin 500 MG Tablet PO (22:59)
[2021-10-27] MEDS: Mirtazapine 15 MG Tablet PO (22:59)
[2021-10-27] MEDS: 0.9% Normal Saline 1,000 ML 100 ML IV (23:13)
[2021-10-28 03:36] VITALS: BP 116/52; PULSE 62; RESP 18; TEMP 37.9; O2SAT 95
--- NOTE | 2021-10-28 07:35 | PCM.DC.SUM ---
Providers Date of Admission: 10/27/21 Primary Care Physician: No Primary Care Phys Reason For Visit: URETHRAL STRICTURE & RETENTION OF URINE Diagnosis Discharge Diagnosis (1) Acute urinary retention: Status: Acute Code(s): R33.8 - Other retention of urine (2) Membranous urethral stricture: Status: Acute Code(s): N35.913 - Unspecified membranous urethral stricture, male Plan: Plan to take the patient back to surgery for cystoscopy dilation of urethral stricture and Adams placement Medications at Discharge Home Medications citalopram 20 mg tablet 20 mg PO DAILY MOOD 09/21/14 multivitamin 1 tab PO DAILY SUPPLEMENT 09/21/14 esomeprazole magnesium 20 mg capsule,delayed release 20 mg PO DAILY 05/18/19 tamsulosin 0.4 mg capsule 0.4 mg PO DAILY 05/18/19 cod liver oil 1 cap PO BID arthritis 02/03/20 turmeric 400 mg capsule 400 mg PO DAILY arthritis 02/03/20 metoprolol tartrate 25 mg tablet 12.5 mg PO BID #180 tabs 10/13/20 allopurinol 300 mg tablet 300 mg PO DAILY 04/25/21 hydroxychloroquine 200 mg tablet 200 mg PO BID 04/25/21 mirtazapine 15 mg tablet 15 mg PO QHS sleep 04/25/21 Handicap Placard #1 ea 07/05/21 apixaban 5 mg tablet 5 mg PO BID #180 tabs 07/15/21 isosorbide mononitrate 60 mg tablet,extended release 24 hr 60 mg PO DAILY #30 tabs 07/25/21 ranolazine 500 mg tablet,extended release,12 hr (Ranexa) 500 mg PO BID #60 tabs 09/15/21 atorvastatin 80 mg tablet See Rx Instructions .Route .COMPLEX #90 tabs 10/11/21 oxybutynin chloride 10 mg tablet,extended release 24 hr 10 mg PO DAILY 10/27/21 Hospital Course Summary of Care Provided Hospital Course: Patient was taken to the operating room because of severe urethral membranous stricture dilated catheter was placed kept overnight for observation and he will go home today with a catheter. Physical Exam Const alert and oriented x3 General Appearance: cooperative HEENT normocephalic, head/scalp atraumatic, EAC's normal and TM's normal bilaterally Eyes PERRL and EOMs intact bilaterally Pupil: sluggish Neck no lymphadenopathy, supple and no JVD General: trachea midline Lymph Lymphatic: no lymphadenopathy noted, lymphedema and lymphadenopathy Resp normal respiratory effort, normal air movement and clear to auscultation bilaterally Cardio regular rate, regular rhythm and peripheral pulses 2+ throughout GI soft to palpation, non-tender and non-distended Extremity normal capillary refill and no clubbing, cyanosis or edema General Extremity: no tenderness to palpation of joints or extremities Skin no rashes or lesions noted General Skin Exam: turgor normal Lesions: no lesions Rashes: no rashes Neuro CN's II-XII intact bilaterally Speech: speech normal Motor Exam: strength 5/5 throughout; Negative for general weakness Psych thought process normal, cooperative and affect normal Appearance: appropriate Weight / BMI Weight Weight: 146.7 kg Body Mass Index (BMI) 47.7 ABG / Lab / Microbiology Data Result Diagrams: 10/27/21 15:55 10/27/21 15:55 Laboratory: Laboratory Results - last 24 hr 10/27/21 15:55: WBC 11.3 H, RBC 4.87, Hgb 14.8, Hct 45.0, MCV 92.4, MCH 30.4, MCHC 32.9, RDW Std Deviation 52.0 H, RDW Coeff of Abdiel 15.2 H, Plt Count 237, MPV 11.0, Immature Gran % (Auto) 0.300, Neut % (Auto) 79.3 H, Lymph % (Auto) 8.0 L, [place] % (Auto) 9.6, Eos % (Auto) 2.5, Baso % (Auto) 0.3, Absolute Neuts (auto) 9.0 H, Absolute Lymphs (auto) 0.90, Nucleated RBC % 0 10/27/21 15:55: Sodium 140, Potassium 4.8, Chloride 107, Carbon Dioxide 26.0, Anion Gap 7, BUN 26 H, Creatinine 1.97 H, Estim Creat Clear Calc 35.89, Est GFR (MDRD) Af Amer 44 L, Est GFR (MDRD) Non-Af 36 L, BUN/Creatinine Ratio 13.2, Glucose 113 H, Calcium 9.0 10/27/21 15:55: Urine Color Yellow, Urine Clarity Cloudy, Urine pH 6.0, Ur Specific [place] 1.015, Urine Protein 30 H, Urine Glucose (UA) Normal, Urine Ketones Negative, Urine Occult Blood 50 H, Urine Nitrite Positive H, Urine Bilirubin Negative, Urine Urobilinogen Normal, Ur Leukocyte Esterase 500 H, Urine RBC 10-25 SEEN, Urine WBC >100 SEEN, Ur Squamous Epith Cells 0-5 SEEN, Urine Bacteria 4+, Urine Mucus 0 SEEN Microbiology: Microbiology 10/27/21 22:50 Nasal Secretion SARS-CoV-2 Antigen (Rapid) - Final Radiography Diagnostic Testing: Radiology Impression Abdomen/Pelvis CT 10/27/21 15:49 IMPRESSION: No acute abnormalities in the abdomen or pelvis. Mildly distended bladder. No hydronephrosis. 2 mm nonobstructing stone in the right upper renal pole. Electronically Signed: Shimon Fish MD at 16:55 EDT , D/C Instructions Discharge Diet: No restrictions Discharge Activity: Return to Normal Activity Please Follow Up With: Cedric Valenzuela MD When: Call [phone] for an appointment Meaningful Use Info Meaningful Use Diagnoses (Choose all that apply): None applicable Discharge Plan Admission Admit Date/Time: 10/27/21 21:36 Attending Provider: Cedric Valenzuela Primary Care Provider: Care PhysicianOrin Primary Discharge Orders/Prescriptions Prescriptions: No Action metoprolol tartrate 25 mg tablet 12.5 mg PO BID Qty: 180 3RF allopurinol 300 mg tablet 300 mg PO DAILY hydroxychloroquine 200 mg tablet 200 mg PO BID (DME) Handicap Placard See Rx Instructions .Route .MEDSUPPLY Qty: 1 0RF Rx Instructions: Good from 07/05/2021-07/05/2026; ranolazine [Ranexa] 500 mg tablet extended release 12 hr 500 mg PO BID Qty: 60 11RF multivitamin 1 TABLET tablet 1 tab PO DAILY citalopram 20 MG tablet 20 mg PO DAILY tamsulosin 0.4 MG capsule 0.4 mg PO DAILY esomeprazole magnesium 20 MG capsule 20 mg PO DAILY cod liver oil 1 EACH capsule 1 cap PO BID turmeric 400 MG capsule 400 mg PO DAILY mirtazapine 15 mg tablet 15 mg PO QHS oxybutynin chloride 10 mg Tablet Extended Release 24hr 10 mg PO DAILY apixaban 5 mg tablet 5 mg PO BID Qty: 180 3RF Hold Instructions: Order Changed isosorbide mononitrate 60 mg tablet extended release 24 hr 60 mg PO DAILY Qty: 30 11RF atorvastatin 80 mg tablet See Rx Instructions .ROUTE .COMPLEX Qty: 90 4RF Dose Instruction: TAKE 1 TABLET BY MOUTH AT BEDTIME Rx Instructions: TAKE 1 TABLET BY MOUTH AT BEDTIME Referrals / Follow Up: Tamar Walters, PUBLIC RELATIONS OFFICER-C [Non-Staff] -
[2021-10-28 07:56] VITALS: BP 144/64; PULSE 61; RESP 18; TEMP 36.6; O2SAT 97
--- NOTE | 2021-10-28 09:15 | NURSING ---
Patient would like to take medication at home.
--- NOTE | 2021-10-28 10:39 | CASEMGMT ---
RN CM in to complete assessment, pt has been dc'd and has left.
== END 2021-10-28 09:58 | disposition home or self-care (01) | DRG 697 ==
LOC: ED 18:21 → SDC 18:49 → AC 18:50 → SDC 22:03 → MS3 22:03
PROVIDERS: Nurse Practitioner; Admitting Provider Urology; Emergency Provider Emergency Medicine; Visit Provider Urology
PROC: 0T7D8ZZ Dilation of Urethra, Via Natural or Artificial Opening Endoscopic (ICD-10-PCS; principal; 2021-10-27 21:00)
DX: N35.813 Other membranous urethral stricture, male (principal); N40.1 Benign prostatic hyperplasia with lower urinary tract symptoms; R33.8 Other retention of urine; N39.0 Urinary tract infection, site not specified; B96.20 Unspecified Escherichia coli [E. coli] as the cause of diseases classified elsewhere; I48.0 Paroxysmal atrial fibrillation; I12.9 Hypertensive chronic kidney disease with stage 1 through stage 4 chronic kidney disease, or unspecified chronic kidney disease; N18.30 Chronic kidney disease, stage 3 unspecified; Z20.822 Contact with and (suspected) exposure to COVID-19; I25.10 Atherosclerotic heart disease of native coronary artery without angina pectoris; E78.00 Pure hypercholesterolemia, unspecified; K21.9 Gastro-esophageal reflux disease without esophagitis; G47.33 Obstructive sleep apnea (adult) (pediatric); E66.01 Morbid (severe) obesity due to excess calories; Z68.42 Body mass index [BMI] 45.0-49.9, adult; Z79.01 Long term (current) use of anticoagulants; Z79.899 Other long term (current) drug therapy; Z87.891 Personal history of nicotine dependence; Z96.651 Presence of right artificial knee joint
CPT/HCPCS: 74176; 80048; 81001; 85025; 87077; 87086; 87088; 87186; 87811; 93005; 99283; J7030; J7050; A4216; C1726; C1769; J2405

== ENCOUNTER 2021-11-07 10:01 | Emergency (ER) | payer MEDICARE, OTHER, SELFPAY ==
[2021-11-07 10:02] VITALS: BP 179/88; PULSE 72; RESP 16; TEMP 36.3; O2SAT 97; BMI 47.7
--- NOTE | 2021-11-07 10:14 | EDS_ITS ---
HPI History of Present Illness Chief Complaint: Complaint Narrative Narrative: 70-year-old male with a Adams catheter placed by Dr. Valenzuela on 10/28/2019 due to secondary to acute urinary retention. There was inability to place a Adams catheter in the emergency room by both ER staff and by Dr. Valenzuela. Patient was taken to the OR and had 1 surgically placed. He is supposed to go to the OR in 3 days to have this dilated further. He notes that yesterday he was cold all day for no reason. He denies chills, fever, body aches. He does not have any nausea or vomiting. He is not having any abdominal pain. He states his Adams catheter has been draining normally. He has yellow urine. He notes that he does have some purulent drainage from the penis which has begun. Patient states that he previously was admitted with his urinary tension for UTI and was discharged home on 3 days of antibiotics. He cannot recall what the name of the antibiotic was. [facility] Medical History Abrasion TEODORO (acute kidney injury) Ambulates with cane Anxiety and depression Arthritis Atherosclerotic heart disease of [place] coronary artery without angina pectoris Atrial fibrillation Cardiology follow-up encounter Cellulitis Chronic UTI CPAP (continuous positive airway pressure) dependence Depression Easy bruising Essential hypertension Excessive bleeding Former smoker GERD (gastroesophageal reflux disease) Gout History of echocardiogram History of edema History of left heart catheterization (LHC) (~07/29/19) History of stress test Indwelling urethral catheter present Morbid obesity Obstructive sleep apnea Paroxysmal atrial fibrillation Pure hypercholesterolemia Septic joint of right knee joint Severe sepsis Shortness of breath on exertion Viral syndrome Wears glasses Home Medications citalopram 20 mg tablet 20 mg PO DAILY MOOD 09/21/14 [History Last Taken 02/03/20] multivitamin 1 tab PO DAILY SUPPLEMENT 09/21/14 [History Last Taken 02/03/20] esomeprazole magnesium 20 mg capsule,delayed release 20 mg PO DAILY 05/18/19 [History Last Taken 02/03/20] tamsulosin 0.4 mg capsule 0.4 mg PO DAILY 05/18/19 [History Last Taken 02/03/20] cod liver oil 1 cap PO BID arthritis 02/03/20 [History Last Taken 02/03/20] turmeric 400 mg capsule 400 mg PO DAILY arthritis 02/03/20 [History Last Taken 02/03/20] hydroxychloroquine 200 mg tablet 200 mg PO BID arthritis 04/25/21 [History Last Taken Unknown] Handicap Placard #1 ea 07/05/21 [Rx Last Taken Unknown] apixaban 5 mg tablet 5 mg PO BID #180 tabs 07/15/21 [Rx Last Taken Unknown] isosorbide mononitrate 60 mg tablet,extended release 24 hr 60 mg PO DAILY #30 tabs 07/25/21 [Rx Last Taken Unknown] ranolazine 500 mg tablet,extended release,12 hr (Ranexa) 500 mg PO BID #60 tabs 09/15/21 [Rx Last Taken Unknown] atorvastatin 80 mg tablet See Rx Instructions .Route .COMPLEX #90 tabs 10/11/21 [Rx Last Taken Unknown] oxybutynin chloride 10 mg tablet,extended release 24 hr 10 mg PO DAILY 10/27/21 [History Last Taken Unknown] mirabegron 50 mg tablet,extended release 24 hr (Myrbetriq) 50 mg PO DAILY overactive bladder 11/04/21 [History Last Taken Unknown] Allergy/AdvReac Type Severity Reaction Status Date / Time bee venom protein (honey bee) Allergy Hives Verified 11/07/21 10:01 amlodipine AdvReac Severe severe Verified 11/07/21 10:01 swelling in hands and feet spider venom AdvReac Other Verified 11/07/21 10:01 Family History Father Heart disease Diabetes CAD (coronary artery disease) History of coronary artery bypass surgery Cardiac pacemaker in situ Other Pure hypercholesterolemia Surgical History History of cystoscopy History of knee surgery History of total right knee replacement Social History Smoking Status: Former smoker how long ago did patient quit smokin alcohol intake: never substance use type: does not use caffeine: Yes Type: tea Number of servings: 2 ROS ROS ED Constitutional Constitutional ED: Denies fever(s) or sweats Eyes Eyes: Denies change in vision ENT ENT ED: Denies rhinorrhea or sore throat Cardiovascular Cardiovascular: Denies chest pain or palpitations Respiratory/Chest Respiratory/Chest: Denies cough or dyspnea Gastrointestinal Gastrointestinal: Denies abdominal pain Genitourinary Genitourinary ED: Reports other Details: Purulent drainage from urethra ; Denies dysuria Musculoskeletal Musculoskeletal: Denies arthralgias or back pain Integumentary Denies abscess Neurologic Neurologic: Denies headache(s) or paresthesias Psychiatric Psychiatric: Denies anxiety or depression EXAM Physical Exam Const Vital Signs: 11/07/21 10:02 Temperature 97.3 F L Temperature Source Temporal Pulse Rate 72 Respiratory Rate 16 Blood Pressure 179/88 H Blood Pressure Mean 118 Pulse Ox 97 Oxygen Delivery Method Room Air Positive well nourished General Appearance ED: NAD; Negative for pallor HEENT Reports moist mucous membranes normocephalic and atraumatic Eyes PERRL and EOMs intact bilaterally Resp normal respiratory effort and clear to auscultation bilaterally Auscultation: Negative for rales, rhonchi or wheezes Cardio regular rate and regular rhythm GI non-tender and non-distended GI Narrative: White purulent drainage from urethra. Adams catheter noted to be in place and yellow urine is in the his leg bag. Palpation: Negative for soft, tender or guarding no CVA tenderness Back/Spine no CVA tenderness Neuro oriented x3 and CN's II-XII intact bilaterally Sensorium / Orientation: alert Psych mental status grossly normal Thought Process: normal thought process Skin General Skin Exam: Negative for jaundice or pallor MDM MDM MDM Narrative Medical decision making narrative: Patient presenting with urethral drainage. This was sent for culture. Urinalysis and urine culture will also be obtained as well as basic labs. Patient did not have any pain and did not require any medications. CBC shows no leukocytosis. Hemoglobin hematocrit are stable. Platelets normal. Renal function at baseline. Electrolytes within normal limits. Urinalysis obtained shows 500 leukocyte esterase, 5200 RBCs, 50-100 WBCs and 3+ bacteria. I spoke with Dr. Valenzuela regarding the drainage and the urinalysis and he recommended putting him on antibiotic. Patient will be started on Keflex with first dose given in ER. He is to follow-up with urology this week. Patient stable for discharge. Impression: 1. UTI 2. Urethral drainage Lab Data Attestation: I reviewed the patient's lab results. Labs: Laboratory Results - last 24 hr 11/07/21 11/07/21 11/07/21 10:30 10:30 10:30 WBC 10.6 RBC 4.42 L Hgb 13.3 Hct 41.5 MCV 93.9 MCH 30.1 MCHC 32.0 RDW Std Deviation 51.2 H RDW Coeff of Abdiel 14.8 H Plt Count 221 MPV 10.5 Immature Gran % (Auto) 0.600 Neut % (Auto) 74.3 H Lymph % (Auto) 10.0 L [place] % (Auto) 9.7 Eos % (Auto) 4.8 Baso % (Auto) 0.6 Absolute Neuts (auto) 7.9 H Absolute Lymphs (auto) 1.06 Nucleated RBC % 0 Sodium 140 Potassium 4.2 Chloride 108 H Carbon Dioxide 25.0 Anion Gap 7 BUN 20 H Creatinine 1.80 H Estim Creat Clear Calc 39.28 Est GFR (MDRD) Af Amer 48 L Est GFR (MDRD) Non-Af 40 L BUN/Creatinine Ratio 11.1 Glucose 105 Calcium 8.9 Urine Color Yellow Urine Clarity Sl. Cloudy Urine pH 6.0 Ur Specific [place] 1.015 Urine Protein 100 H Urine Glucose (UA) Normal Urine Ketones Negative Urine Occult Blood 250 H Urine Nitrite Negative Urine Bilirubin Negative Urine Urobilinogen Normal Ur Leukocyte Esterase 500 H Urine RBC 50-100 SEEN Urine WBC 50-100 SEEN Ur Squamous Epith Cells 0 SEEN Urine Bacteria 3+ Urine Mucus 0 SEEN Discharge Plan Triage Chief Complaint: Complaint ED Provider: Arley Sarmiento Dx/Rx/DC Orders Prescriptions: No Action hydroxychloroquine 200 mg tablet 200 mg PO BID (DME) Handicap Placard See Rx Instructions .Route .MEDSUPPLY Qty: 1 0RF Rx Instructions: Good from 07/05/2021-07/05/2026; ranolazine [Ranexa] 500 mg tablet extended release 12 hr 500 mg PO BID Qty: 60 11RF multivitamin 1 TABLET tablet 1 tab PO DAILY citalopram 20 MG tablet 20 mg PO DAILY tamsulosin 0.4 MG capsule 0.4 mg PO DAILY esomeprazole magnesium 20 MG capsule 20 mg PO DAILY cod liver oil 1 EACH capsule 1 cap PO BID turmeric 400 MG capsule 400 mg PO DAILY oxybutynin chloride 10 mg Tablet Extended Release 24hr 10 mg PO DAILY Myrbetriq 50 mg Tablet Extended Release 24 Hr 50 mg PO DAILY apixaban 5 mg tablet 5 mg PO BID Qty: 180 3RF Hold Instructions: Order Changed isosorbide mononitrate 60 mg tablet extended release 24 hr 60 mg PO DAILY Qty: 30 11RF atorvastatin 80 mg tablet See Rx Instructions .ROUTE .COMPLEX Qty: 90 4RF Dose Instruction: TAKE 1 TABLET BY MOUTH AT BEDTIME Rx Instructions: TAKE 1 TABLET BY MOUTH AT BEDTIME Primary Care Provider: NORMAN ZHENG Referrals: Care Physician,No Primary [Non-Staff] -
[2021-11-07 10:35] LABS: Mucous, Urine 0 SEEN /hpf (<or=2+); Squamous Epithelial Cells - UA 0 SEEN /hpf (0-5)
[2021-11-07 10:37] LABS: Absolute Lymphocyte Count 1.06 X10^3/uL (0.83-4.51); Absolute Neutrophil Count 7.9 X10^3/uL (2.0-7.7); Basophil# 0.06 X10^3/uL; Basophil% 0.6 % (0-1); Eosinophil# 0.51 X10^3/uL; Eosinophils% 4.8 % (0-5); Hematocrit 41.5 % (40-54); Hemoglobin 13.3 g/dL (13.0-16.5); Lymphocyte # 1.06 X10^3/ul (0.83-4.51); Mean Corpuscular Hgb 30.1 pg (27.0-32.0); Mean Corpuscular Volume 93.9 fL (80-94); Mean Platelet Vol. 10.5 fl (6.2-12.0); Monocyte# 1.03 X10^3/uL; Monocyte% 9.7 % (0-10); NRBC Flagged by Analyzer 0 % (0-5); Neutrophil # 7.89 X10^3/uL (2.7-7.7); Neutrophil % 74.3 % (47-70); Platelet Count 221 K/mm3 (150-450); RBC Distribution Width CV 14.8 % (11.6-14.6); RBC Distribution Width SD 51.2 fl (35.1-43.9); Red Blood Count 4.42 M/mm3 (4.6-6.2); White Blood Count 10.6 K/mm3 (4.4-11.0)
[2021-11-07 10:45] LABS: Color, Urine Yellow (Yellow); Glucose, Dipstick Normal (Normal); Ketone-Dipstick Negative (Negative); Leukocyte Esterase-Dipstick 500 /ul (Negative); Nitrite-Dipstick Negative (Negative); Occult Blood-Urine 250 /ul (Negative); Protein-Dipstick 100 mg/dl (Negative); Specific Gravity, Urine 1.015 (1.002-1.030); Urine Bilirubin Dipstick Negative (Negative); Urine Clarity Sl. Cloudy (Clear); Urine Urobilinogen Normal (Normal)
[2021-11-07 10:48] LABS: Anion Gap 7 (5-15); BUN 20 mg/dL (7-18); BUN/Creat Ratio 11.1 RATIO (10-20); Bacteria 3+ /hpf (None Seen); Calcium,Total 8.9 mg/dL (8.5-10.1); Chloride 108 mmol/L (98-107); EST Glomerular Filtration Rate 40 mL/min (>60); Est Glom Filt Rate - Afr Amer 48 mL/min (>60); Estimated Creatinine Clearance 39.28 ml/min; Glucose 105 mg/dL (74-106); Potassium 4.2 mmol/L (3.5-5.1); Red Blood Cells-Urine 50-100 SEEN /hpf (0-5); Sodium Level 140 mmol/L (136-145); White Blood Cells 50-100 SEEN /hpf (0-5)
[2021-11-07] MEDS: Cephalexin 250 MG Capsule 500 MG PO (11:12)
--- NOTE | 2021-11-07 11:16 | ED.RN ---
changed cath secure while in ED
--- NOTE | 2021-11-07 15:29 | ED.RN ---
PT CALLED INTO ED. REPORTS THE PRESCRIPTION FOR ANTIBIOTIC WAS NOT PRESENT AT [facility]. DR. DUGGAN INFORMED PRESCRIPTION RESUBMITTED PER MD.
== END 2021-11-07 11:16 | disposition home or self-care (01) ==
PROVIDERS: Emergency Provider Student in an Organized Health Care Education/Training Program; PCP Family Medicine; Visit Provider Student in an Organized Health Care Education/Training Program
DX: N39.0 Urinary tract infection, site not specified (principal); E66.01 Morbid (severe) obesity due to excess calories; R36.9 Urethral discharge, unspecified; I10 Essential (primary) hypertension; I25.10 Atherosclerotic heart disease of native coronary artery without angina pectoris; E78.00 Pure hypercholesterolemia, unspecified; Z87.891 Personal history of nicotine dependence; K21.9 Gastro-esophageal reflux disease without esophagitis; M10.9 Gout, unspecified; F32.9 Major depressive disorder, single episode, unspecified; F41.9 Anxiety disorder, unspecified
CPT/HCPCS: 80048; 81001; 85025; 87070; 87075; 87077; 87086; 87088; 87186; 87205; 99284; A4216

== ENCOUNTER 2021-11-09 07:42 | Day surgery (SDC) | payer MEDICARE, OTHER, SELFPAY ==
[2021-11-09 08:13] VITALS: BP 122/66; PULSE 63; RESP 16; TEMP 36.3; O2SAT 96; BMI 47.2
[2021-11-09] MEDS: Lactated Ringers 1,000 ML 15 ML IV (08:20)
--- NOTE | 2021-11-09 10:56 | PCM.HP.STD ---
HPI - General General Date of Service: 11/09/21 HPI Narrative GUSTAVO HARTMAN, is a 70 M who presents for direct vision internal urethrotomy for a very dense bulbar urethral stricture [facility] Medical History Abrasion TEODORO (acute kidney injury) Ambulates with cane Anxiety and depression Arthritis Atherosclerotic heart disease of [place] coronary artery without angina pectoris Atrial fibrillation Cardiology follow-up encounter Cellulitis Chronic UTI CPAP (continuous positive airway pressure) dependence Depression Easy bruising Essential hypertension Excessive bleeding Former smoker GERD (gastroesophageal reflux disease) Gout History of echocardiogram History of edema History of left heart catheterization (LHC) (~07/29/19) History of stress test Indwelling urethral catheter present Morbid obesity Obstructive sleep apnea Paroxysmal atrial fibrillation Pure hypercholesterolemia Septic joint of right knee joint Severe sepsis Shortness of breath on exertion Viral syndrome Wears glasses Home Medications citalopram 20 mg tablet 20 mg PO DAILY MOOD 09/21/14 [History Last Taken 02/03/20] multivitamin 1 tab PO DAILY SUPPLEMENT 09/21/14 [History Last Taken 02/03/20] esomeprazole magnesium 20 mg capsule,delayed release 20 mg PO DAILY 05/18/19 [History Last Taken 11/09/21] tamsulosin 0.4 mg capsule 0.4 mg PO DAILY 05/18/19 [History Last Taken 02/03/20] cod liver oil 1 cap PO BID arthritis 02/03/20 [History Last Taken 02/03/20] turmeric 400 mg capsule 400 mg PO DAILY arthritis 02/03/20 [History Last Taken 02/03/20] hydroxychloroquine 200 mg tablet 200 mg PO BID arthritis 04/25/21 [History Last Taken Unknown] Handicap Placard #1 ea 07/05/21 [Rx Last Taken Unknown] apixaban 5 mg tablet 5 mg PO BID #180 tabs 07/15/21 [Rx Last Taken 11/05/21] isosorbide mononitrate 60 mg tablet,extended release 24 hr 60 mg PO DAILY #30 tabs 07/25/21 [Rx Last Taken 11/09/21] ranolazine 500 mg tablet,extended release,12 hr (Ranexa) 500 mg PO BID #60 tabs 09/15/21 [Rx Last Taken Unknown] atorvastatin 80 mg tablet See Rx Instructions .Route .COMPLEX #90 tabs 10/11/21 [Rx Last Taken Unknown] oxybutynin chloride 10 mg tablet,extended release 24 hr 10 mg PO DAILY 10/27/21 [History Last Taken Unknown] mirabegron 50 mg tablet,extended release 24 hr (Myrbetriq) 50 mg PO DAILY overactive bladder 11/04/21 [History Last Taken Unknown] cephalexin 500 mg capsule 500 mg PO Q12 #14 caps 11/07/21 [Rx Last Taken Unknown] cephalexin 500 mg capsule 500 mg PO Q12 #14 caps 11/07/21 [Rx Last Taken Unknown] ciprofloxacin HCl 500 mg tablet (Cipro) 250 mg PO DAILY #30 tabs 11/09/21 [Rx Last Taken Unknown] nystatin-triamcinolone 100,000 unit/gram-0.1 % topical ointment 1 applic topical TID #60 grams 11/09/21 [Rx Last Taken Unknown] Allergy/AdvReac Type Severity Reaction Status Date / Time bee venom protein (honey bee) Allergy Hives Verified 11/09/21 08:12 amlodipine AdvReac Severe severe Verified 11/09/21 08:12 swelling in hands and feet spider venom AdvReac Other Verified 11/09/21 08:12 Family History Father Heart disease Diabetes CAD (coronary artery disease) History of coronary artery bypass surgery Cardiac pacemaker in situ Other Pure hypercholesterolemia Surgical History History of cystoscopy History of knee surgery History of total right knee replacement Social History Smoking Status: Former smoker how long ago did patient quit smokin alcohol intake: never substance use type: does not use caffeine: Yes Type: tea Number of servings: 2 Vital Signs Vital Signs Vital Signs: 11/09/21 08:13 11/09/21 08:13 Temperature 97.3 F L Temperature Source Temporal Pulse Rate 63 Respiratory Rate 16 Respiratory Pattern Normal Blood Pressure 122/66 H Blood Pressure Mean 84 Blood Pressure Source Monitor Blood Pressure Position Sitting Blood Pressure Location Left Arm Pulse Ox 96 Oxygen Delivery Method Room Air Weight Weight: 145 kg Body Mass Index (BMI) 47.2
--- NOTE | 2021-11-09 10:57 | DCINST_ITS ---
Discharge Instructions Diet Discharge Diet: No restrictions and Light diet - advance as tolerated Activity Discharge Activity: Return to Normal Activity Dressing / Incision Catheter: Adams to leg bag and Adams to large bag Drain: Manning Follow Up Care Please Follow Up With: Cedric Valenzuela MD When: 1 month Test Results: Test results from this visit will be discussed in further detail at your follow- up appointment, if applicable. Discharge Plan Admission Primary Reason for Your Visit: DVIU Attending Provider: Cedric Valenzuela Primary Care Provider: Jie Adams Discharge Orders/Prescriptions Prescriptions: New ciprofloxacin HCl [Cipro] 500 mg tablet 250 mg PO DAILY Qty: 30 0RF nystatin-triamcinolone 100,000-0.1 unit/gram-% ointment 1 applic topical TID Qty: 60 1RF Rx Instructions: apply to penis three times per day Continued hydroxychloroquine 200 mg tablet 200 mg PO BID (DME) Handicap Placard See Rx Instructions .Route .MEDSUPPLY Qty: 1 0RF Rx Instructions: Good from 07/05/2021-07/05/2026; ranolazine [Ranexa] 500 mg tablet extended release 12 hr 500 mg PO BID Qty: 60 11RF multivitamin 1 TABLET tablet 1 tab PO DAILY citalopram 20 MG tablet 20 mg PO DAILY tamsulosin 0.4 MG capsule 0.4 mg PO DAILY esomeprazole magnesium 20 MG capsule 20 mg PO DAILY cod liver oil 1 EACH capsule 1 cap PO BID turmeric 400 MG capsule 400 mg PO DAILY oxybutynin chloride 10 mg Tablet Extended Release 24hr 10 mg PO DAILY Myrbetriq 50 mg Tablet Extended Release 24 Hr 50 mg PO DAILY cephalexin 500 mg capsule 500 mg PO Q12 Qty: 14 0RF cephalexin 500 mg capsule 500 mg PO Q12 Qty: 14 0RF apixaban 5 mg tablet 5 mg PO BID Qty: 180 3RF Hold Instructions: Order Changed isosorbide mononitrate 60 mg tablet extended release 24 hr 60 mg PO DAILY Qty: 30 11RF atorvastatin 80 mg tablet See Rx Instructions .ROUTE .COMPLEX Qty: 90 4RF Dose Instruction: TAKE 1 TABLET BY MOUTH AT BEDTIME Rx Instructions: TAKE 1 TABLET BY MOUTH AT BEDTIME Referrals / Follow Up: Cedric Valenzuela MD [Med Staff - Active Staff] - Jie Adams DO [Primary Care Provider] - Disposition Disposition (needs filled in before D/C Order can be placed): Home, Self Care
--- NOTE | 2021-11-09 10:57 | PCM.OPRPT ---
Report of Operation Date of Procedure: 11/09/21 Pre-Operative Diagnosis: Dense bulbar urethral stricture Post-Operative Diagnosis: The same Surgery/Procedure Performed:: Direct vistion internal urethrotomy Description of Surgical Findings:: The patient was taken back to the operating room after induction of anesthesia was placed in dorsolithotomy position. The genitals and urethra are prepped and draped in the usual sterile fashion. Then using a DVIU set the meatus was gently dilated from 18-20 Algerian. Then went into the urethra with a urethrotome and identified the pinpoint stricture in the bulbar urethra. A 0.038 Glidewire was used to passed through the stricture to ensure access to the bladder and the prostate. The Glidewire was secured to the drapes. Then using a cold knife the knife was deployed from the urethrotome and then at the 12 o'clock position the scar tissue was cut until the stricture was cut open completely. I was then able to navigate the scope through the scar tissue without any resistance. Then after this I was able to navigate past the dense scar tissue into the bulbar urethra through the sphincter and passed the prostate. Prostate had minimal obstruction. Inside the bladder the bladder and prostate was inspected the trigone was normal the left and right ureter orifice normal the prostate was normal. I then pulled out the urethrotome and then a well-lubricated 18 Algerian catheter was advanced into the bladder with clear return of urine. 10 cc were put into the balloon and the catheter was secured to the leg bag. Surgeon: Cedric Valenzuela Type of Anesthesia: General Admit VTE Documentation VTE Present on Admission: No VTE Mechan Device Prophylaxis: SCD's
[2021-11-09 11:02] VITALS: BP 122/66; BP 149/63; PULSE 60; RESP 18; TEMP 36.2; O2SAT 94
--- NOTE | 2021-11-09 11:07 | EKG12_ITS ---
Test Reason : POST OP Blood Pressure : / mmHG Vent. Rate : 053 BPM Atrial Rate : 258 BPM P-R Int : 000 ms QRS Dur : 094 ms QT Int : 486 ms P-R-T Axes : 000 023 047 degrees QTc Int : 456 ms Normal sinus rhythm Abnormal ECG Confirmed by EDUARDO LENZ, HERMAN ([id number]), acquisition editor SAMIR RAMIREZ ([id number]) on 11/11/2021 2:26:55 PM Referred By: Cedric Valenzuela Confirmed By:HERMAN CLARK MD
[2021-11-09 11:15] VITALS: BP 122/66; BP 145/64; PULSE 55; RESP 17; O2SAT 97
[2021-11-09 11:30] VITALS: BP 122/66; BP 153/71; PULSE 55; RESP 17; O2SAT 96
[2021-11-09 11:45] VITALS: BP 122/66; BP 152/75; PULSE 54; RESP 16; TEMP 36.2; O2SAT 96
[2021-11-09 11:57] LABS: Troponin-I HS 8 pg/mL (3.0-78.0)
[2021-11-09 12:21] VITALS: BP 122/66; BP 152/62; PULSE 52; RESP 16; TEMP 36.5; O2SAT 95
== END 2021-11-09 12:29 | disposition home or self-care (01) ==
LOC: SDC 07:44 → AC 07:46
PROVIDERS: Anesthesiology; PCP Family Medicine; Referring Provider Urology; Visit Provider Urology
PROC: 0T7D8ZZ Dilation of Urethra, Via Natural or Artificial Opening Endoscopic (ICD-10-PCS; CPT 52276; principal; 2021-11-09 09:55)
DX: N35.912 Unspecified bulbous urethral stricture, male (principal); I48.0 Paroxysmal atrial fibrillation; E66.01 Morbid (severe) obesity due to excess calories; Z68.42 Body mass index [BMI] 45.0-49.9, adult; N18.30 Chronic kidney disease, stage 3 unspecified; I12.9 Hypertensive chronic kidney disease with stage 1 through stage 4 chronic kidney disease, or unspecified chronic kidney disease; I25.10 Atherosclerotic heart disease of native coronary artery without angina pectoris; E78.00 Pure hypercholesterolemia, unspecified; K21.9 Gastro-esophageal reflux disease without esophagitis; G47.33 Obstructive sleep apnea (adult) (pediatric); F32.A Depression, unspecified; Z79.01 Long term (current) use of anticoagulants; Z79.899 Other long term (current) drug therapy; Z87.891 Personal history of nicotine dependence; Z96.651 Presence of right artificial knee joint
CPT/HCPCS: 52276; 00910; 84484; 93005; J7120; C1769; J2405

== ENCOUNTER → 2022-02-20 | Outpatient (CLI) | payer MEDICARE, OTHER, SELFPAY ==
[2022-02-20 11:50] LABS: Absolute Neutrophil Count 8.6 X10^3/uL (2.0-7.7); Basophil# 0.11 X10^3/uL; Basophil% 0.9 % (0-1); Eosinophil# 0.25 X10^3/uL; Hematocrit 43.6 % (40-54); Hemoglobin 13.6 g/dL (13.0-16.5); Lymphocyte % 13.4 % (19-41); Mean Corp Hgb Conc 31.2 g/dL (32-36); Mean Corpuscular Hgb 29.4 pg (27.0-32.0); Mean Corpuscular Volume 94.2 fL (80-94); Mean Platelet Vol. 10.3 fl (6.2-12.0); Monocyte# 1.55 X10^3/uL; Monocyte% 12.2 % (0-10); NRBC Flagged by Analyzer 0 % (0-5); Neutrophil % 67.6 % (47-70); POSITIVE DIFFERENTIAL YES; Platelet Count 304 K/mm3 (150-450); RBC Distribution Width CV 15.1 % (11.6-14.6); Red Blood Count 4.63 M/mm3 (4.6-6.2); White Blood Count 12.7 K/mm3 (4.4-11.0)
[2022-02-20 12:08] LABS: Differential Indicated SCAN CRITERIA MET
[2022-02-20 12:16] LABS: BNP,B-Type NATRIURETIC PEPTIDE 20.5 pg/mL (0-100)
[2022-02-20 12:29] LABS: ALB/GLOB Ratio 0.7 RATIO (0.9-2.4); AST(SGOT) 17 U/L (15-37); Alanine Aminotransfer ALT/SGPT 18 U/L (16-61); Alkaline Phosphatase 99 U/L (45-117); Anion Gap 7 (5-15); BUN 25 mg/dL (7-18); BUN/Creat Ratio 13.1 RATIO (10-20); Calcium,Total 9.1 mg/dL (8.5-10.1); Chloride 106 mmol/L (98-107); Creatinine, Serum 1.91 mg/dL (0.70-1.30); EST Glomerular Filtration Rate 37 mL/min (>60); Est Glom Filt Rate - Afr Amer 45 mL/min (>60); Globulin 4.3 g/dL (2.2-4.2); Glucose 95 mg/dL (74-106); Potassium 4.1 mmol/L (3.5-5.1); Protein, Total 7.3 g/dL (6.4-8.2); Sodium Level 140 mmol/L (136-145)
[2022-02-21 13:40] LABS: Pathologist Review Reviewed
== END | disposition home or self-care (01) ==
LOC: MFPLAB 09:54
PROVIDERS: Nurse Practitioner Family; PCP Family Medicine; Visit Provider Internal Medicine Rheumatology
DX: N18.30 Chronic kidney disease, stage 3 unspecified (principal); M06.4 Inflammatory polyarthropathy; R06.00 Dyspnea, unspecified; Z79.899 Other long term (current) drug therapy
CPT/HCPCS: 36415; 80053; 83880; 85025

== ENCOUNTER 2022-04-22 20:10 | Emergency (ER) | payer MEDICARE, OTHER, SELFPAY ==
[2022-04-22 20:10] VITALS: BP 204/69; PULSE 62; RESP 20; TEMP 36.4; O2SAT 95; BMI 47.2
--- NOTE | 2022-04-22 20:14 | EKG12_ITS ---
Test Reason : CP Blood Pressure : / mmHG Vent. Rate : 056 BPM Atrial Rate : 056 BPM P-R Int : 220 ms QRS Dur : 094 ms QT Int : 466 ms P-R-T Axes : 039 030 062 degrees QTc Int : 449 ms Sinus bradycardia with 1st degree A-V block Otherwise normal ECG Confirmed by EDUARDO LENZ, HERMAN ([id number]), script editor SAMIR RAMIREZ ([id number]) on 04/24/2022 2:02:12 PM Referred By: REGAN/SHARMAINE Confirmed By:HERMAN CLARK MD
[2022-04-22 20:47] LABS: Absolute Lymphocyte Count 1.56 X10^3/uL (0.83-4.51); Absolute Neutrophil Count 5.2 X10^3/uL (2.0-7.7); Basophil# 0.04 X10^3/uL; Basophil% 0.5 % (0-1); Eosinophil# 0.17 X10^3/uL; Eosinophils% 2.1 % (0-5); Hematocrit 43.9 % (40-54); Hemoglobin 14.3 g/dL (13.0-16.5); Lymphocyte # 1.56 X10^3/ul (0.83-4.51); Lymphocyte % 19.2 % (19-41); Mean Corp Hgb Conc 32.6 g/dL (32-36); Mean Corpuscular Hgb 30.6 pg (27.0-32.0); Mean Corpuscular Volume 93.8 fL (80-94); Mean Platelet Vol. 10.4 fl (6.2-12.0); Monocyte% 13.5 % (0-10); NRBC Flagged by Analyzer 0 % (0-5); Neutrophil # 5.23 X10^3/uL (2.7-7.7); Neutrophil % 64.5 % (47-70); Platelet Count 198 K/mm3 (150-450); RBC Distribution Width CV 15.6 % (11.6-14.6); RBC Distribution Width SD 53.3 fl (35.1-43.9); Red Blood Count 4.68 M/mm3 (4.6-6.2); White Blood Count 8.1 K/mm3 (4.4-11.0)
[2022-04-22 20:49] VITALS: BP 157/60; PULSE 56; RESP 28; O2SAT 96; O2SAT 97
[2022-04-22 21:09] LABS: Anion Gap 5 (5-15); BUN 22 mg/dL (7-18); BUN/Creat Ratio 11.5 RATIO (10-20); Chloride 108 mmol/L (98-107); Creatinine, Serum 1.92 mg/dL (0.70-1.30); EST Glomerular Filtration Rate 37 mL/min (>60); Est Glom Filt Rate - Afr Amer 45 mL/min (>60); Estimated Creatinine Clearance 36.31 ml/min; Glucose 113 mg/dL (74-106); Potassium 4.5 mmol/L (3.5-5.1); Sodium Level 143 mmol/L (136-145); Troponin-I HS 9 pg/mL (3.0-78.0)
--- NOTE | 2022-04-22 21:10 | RAD_ITS ---
STUDY: XR Chest 1 View 04/22/2022 9:05 PM REASON FOR EXAM: Male, 71 years old. CHEST PAIN chest pain COMPARISON: 05/07/2020 TECHNIQUE: XR Chest 1 View FINDINGS: There is no demonstrated pleural abnormality. Normal heart size. Normal mediastinum. Normal [place]. Prominent appearing increased interstitial lung markings. Normal visualized pulmonary arteries. There is atherosclerotic calcification of the aortic arch with tortuosity. There are diffuse degenerative changes of the visualized thoracic spine. There is degenerative osteoarthritis of the bilateral shoulders. There is no demonstrated abnormality of the visualized soft tissue structures of the upper abdomen. RAD/Chest 1 View (Portable) IMPRESSION: There are no acute findings. Electronically Signed: Yazan Thompson MD at 21:18 EST ,
--- NOTE | 2022-04-22 21:58 | NURSING ---
Monitor strip from time 2025 not for this pt. Unable to remove from chart.
[2022-04-22 22:15] VITALS: PULSE 106; RESP 22; TEMP 37.2; O2SAT 94
[2022-04-22 23:00] VITALS: BP 126/69; PULSE 50; RESP 18; O2SAT 94
[2022-04-22 23:13] LABS: Troponin-I HS 10 pg/mL (3.0-78.0)
[2022-04-22 23:46] VITALS: BP 152/64; PULSE 51; RESP 17; O2SAT 94
--- NOTE | 2022-04-23 00:17 | EDS_ITS ---
HPI History of Present Illness Chief Complaint: Chest Pain Informant: patient and spouse/S.O. Narrative Narrative: Patient is a 71-year-old male with history of proximal atrial fibrillation (on Eliquis), chronic dyspnea on exertion, hypertension, coronary artery disease and GERD presenting with chest pain. Patient states throughout the day today he has had episodes of chest pain on the left lateral chest that last for about 1 to 2 minutes at a time. They occur every few minutes. Patient states he is pretty sedentary and they are not affected by activity. Denies any associated nausea, sweating or any other complaints. He states he has had a couple episodes on the right side. The pain itself does not radiate. Because his been more persistent throughout the day they wanted to get checked out especially as patient has known coronary artery disease with blockage on the right side. Patient did recently have his isosorbide mononitrate increased. Patient has chronic shortness of breath which is significantly changed. He states maybe has been wo rse over the past 3 months but no acute change in the past few days. He has chronic pedal edema with no significant change in that. Denies any other complaints at this time. Denies any new activities. [facility] Medical History Abrasion TEODORO (acute kidney injury) Ambulates with cane Anxiety and depression Arthritis Atherosclerotic heart disease of [place] coronary artery without angina pectoris Atrial fibrillation Cardiology follow-up encounter Cellulitis Chronic UTI CPAP (continuous positive airway pressure) dependence Depression Easy bruising Essential hypertension Excessive bleeding Former smoker GERD (gastroesophageal reflux disease) Gout History of echocardiogram History of edema History of left heart catheterization (LHC) (~07/29/19) History of stress test Indwelling urethral catheter present Morbid obesity Obstructive sleep apnea Paroxysmal atrial fibrillation Pure hypercholesterolemia Septic joint of right knee joint Severe sepsis Shortness of breath on exertion Viral syndrome Wears glasses Home Medications citalopram 20 mg tablet 20 mg PO DAILY MOOD 09/21/14 [History Last Taken 02/03/20] multivitamin 1 tab PO DAILY SUPPLEMENT 09/21/14 [History Last Taken 02/03/20] esomeprazole magnesium 20 mg capsule,delayed release 20 mg PO DAILY 05/18/19 [History Last Taken 11/09/21] tamsulosin 0.4 mg capsule 0.4 mg PO DAILY 05/18/19 [History Last Taken 02/03/20] cod liver oil 1 cap PO BID arthritis 02/03/20 [History Last Taken 02/03/20] turmeric 400 mg capsule 400 mg PO DAILY arthritis 02/03/20 [History Last Taken 02/03/20] hydroxychloroquine 200 mg tablet 200 mg PO BID arthritis 04/25/21 [History Last Taken Unknown] Handicap Placard #1 ea 07/05/21 [Rx Last Taken Unknown] apixaban 5 mg tablet 5 mg PO BID #180 tabs 07/15/21 [Rx Last Taken 11/05/21] ranolazine 500 mg tablet,extended release,12 hr (Ranexa) 500 mg PO BID #60 tabs 09/15/21 [Rx Last Taken Unknown] atorvastatin 80 mg tablet See Rx Instructions .Route .COMPLEX #90 tabs 10/11/21 [Rx Last Taken Unknown] mirabegron 50 mg tablet,extended release 24 hr (Myrbetriq) 30 mg PO DAILY overactive bladder 11/04/21 [History Last Taken Unknown] isosorbide mononitrate 120 mg tablet,extended release 24 hr 120 mg PO DAILY #90 tabs 02/23/22 [Rx Last Taken Unknown] Allergy/AdvReac Type Severity Reaction Status Date / Time bee venom protein (honey bee) Allergy Hives Verified 04/22/22 20:13 amlodipine AdvReac Severe severe Verified 04/22/22 20:13 swelling in hands and feet spider venom AdvReac Other Verified 04/22/22 20:13 Family History Father Heart disease Diabetes CAD (coronary artery disease) History of coronary artery bypass surgery Cardiac pacemaker in situ Other Pure hypercholesterolemia Surgical History History of cystoscopy History of knee surgery History of total right knee replacement Social History Smoking Status: Former smoker how long ago did patient quit smokin alcohol intake: never substance use type: does not use caffeine: Yes Type: tea Number of servings: 2 ROS ROS ED Constitutional Constitutional ED: Denies chills or fever(s) ENT ENT ED: Denies rhinorrhea Cardiovascular Cardiovascular: Reports as per HPI and chest pain; Denies palpitations or racing heartbeat Respiratory/Chest Respiratory/Chest: Reports dyspnea and dyspnea on exertion; Denies cough Gastrointestinal Gastrointestinal: Denies abdominal pain, nausea or vomiting Musculoskeletal Musculoskeletal: Denies arthralgias or myalgias Integumentary Denies rash Neurologic Neurologic: Denies headache(s) or weakness Hematologic/Lymphatic Hematologic/Lymphatic: Reports easy bleeding and easy bruising EXAM Physical Exam Const Vital Signs: 04/22/22 20:10 04/22/22 20:49 04/22/22 20:49 Temperature 97.5 F L Temperature Source Temporal Pulse Rate 62 56 L Respiratory Rate 20 H 28 H Respiratory Effort Blood Pressure 204/69 H 157/60 H Blood Pressure Mean 114 92 Pulse Ox 95 96 97 Oxygen Delivery Method Room Air Room Air Room Air 04/22/22 20:55 04/22/22 22:15 04/22/22 23:00 Temperature 98.9 F Temperature Source Temporal Pulse Rate 106 H 50 L Respiratory Rate 22 H 18 Respiratory Effort Normal Blood Pressure 126/69 H Blood Pressure Mean 88 Pulse Ox 94 94 Oxygen Delivery Method Room Air Room Air 04/22/22 23:46 04/23/22 00:49 Temperature 98.1 F Temperature Source Pulse Rate 51 L 52 L Respiratory Rate 17 15 Respiratory Effort Blood Pressure 152/64 H 172/63 H Blood Pressure Mean 93 Pulse Ox 94 97 Oxygen Delivery Method Room Air Positive well nourished, well developed and obese General Appearance ED: well developed and NAD; Negative for pallor Nutritional Appearance: obese HEENT Reports moist mucous membranes normocephalic and atraumatic Eyes PERRL and EOMs intact bilaterally Neck supple and no JVD Chest Wall inspection of chest normal and palpation of chest normal Chest Narrative: No chest wall crepitus. No reproducibility of pain with palpation Resp normal respiratory effort and clear to auscultation bilaterally Cardio regular rhythm and no murmurs Rate: bradycardia Peripheral Pulses: radial pulses present GI normal to inspection, nondistended, normoactive bowel sounds Extremity normal to inspection General Extremety ED: Negative for edema General Extremity: Negative for edema Neuro oriented x3 Neuro Narrative: No focal deficits appreciated Sensorium / Orientation: awake and alert Psych mental status grossly normal Skin no rashes or lesions noted and no wounds General Skin Exam: Negative for pallor Heart Score History: Slightly/Non-Suspicious ECG: Normal Age: >/= 65 years Risk Factors: >/= 3 Risk Factors or History of CAD Troponin: </= Normal Limit Score: 4 MDM MDM MDM Narrative Medical decision making narrative: Patient evaluated for chest pain has been intermittent throughout the day today. Differential includes arrhythmia, ACS, pleurisy, pneumonia, muscle skeletal pain and referred GI pain. Protocol orders were placed. The EKG does not show any acute ischemic process. Cardiology outpatient note from 01/09/2022 independently reviewed. Patient has history of coronary disease with RCA with chronic total occlusion, atrial flutter/fib, hyperlipidemia, hypertension and LILI on CPAP therapy. Cardiac catheterization on 07/29/2019 showed LVEF of 55%, [place] multivessel coronary artery disease and medical therapy was recommended that time. Cardiac work-up obtained. High since he troponin stable at 9 and 10. EKG does not show acute ischemic changes I do not think this is ACS. No signs of pneumonia. Chest x-ray interpreted by myself as well as radiology does not show any acute cardiopulmonary process. Clinically patient does not appear fluid overloaded. I do not think a BNP is indicated especially as he is no significant change in his dyspnea. He does not have significant pulmonary vascular congestion on his chest x-ray or pleural effusions. Patient is chronically on Eliquis and I do not suspect PE. He is not tachycardic or hypox ic. At this time I think patient can follow-up outpatient with cardiology. He does have a chronically elevated creatinine of 1.92 which is at his baseline. I do not think patient requires admission. Patient and comfortable with this plan of care. He is given return precautions. Discharged home in stable condition. While in the ER patient states his pain is subsiding. Lab Data Attestation: I reviewed the patient's lab results. Labs: Laboratory Results - last 24 hr 04/22/22 04/22/22 04/22/22 20:40 20:40 22:10 WBC 8.1 RBC 4.68 Hgb 14.3 Hct 43.9 MCV 93.8 MCH 30.6 MCHC 32.6 RDW Std Deviation 53.3 H RDW Coeff of Abdiel 15.6 H Plt Count 198 MPV 10.4 Immature Gran % (Auto) 0.200 Neut % (Auto) 64.5 Lymph % (Auto) 19.2 Dewitt % (Auto) 13.5 H Eos % (Auto) 2.1 Baso % (Auto) 0.5 Absolute Neuts (auto) 5.2 Absolute Lymphs (auto) 1.56 Nucleated RBC % 0 Sodium 143 Potassium 4.5 Chloride 108 H Carbon Dioxide 30.0 Anion Gap 5 BUN 22 H Creatinine 1.92 H Estim Creat Clear Calc 36.31 Est GFR (MDRD) Af Amer 45 L Est GFR (MDRD) Non-Af 37 L BUN/Creatinine Ratio 11.5 Glucose 113 H Calcium 9.0 Troponin I High Sens 9 10 Radiography Diagnostic Testing: Clinical Impression(s) from Imaging Studies Chest X-Ray 04/22/22 21:10 IMPRESSION: There are no acute findings. Electronically Signed: Yazan Thompson MD at 21:18 EST , Rhythm Strip Rhythm Strip: Bradycardia Rate: 56 Ectopy: None EKG Initial EKG: Attestation: I personally reviewed and interpreted this EKG as follows: Interpretation: Sinus Bradycardia Comments: Sinus bradycardia with first-degree AV block at a rate of 56 bpm WV interval 220 Normal axis Normal QRS and QTc Normal ST segments Compared to prior EKG on 10/27/2021, patient is now bradycardic with no significant ST segment change Discharge Plan Triage Chief Complaint: Chest Pain ED Provider: Bibi Torres Dx/Rx/DC Orders Clinical Impression: Chest pain of uncertain etiology Instructions: ED Chest Pain, Uncertain Cause Prescriptions: No Action hydroxychloroquine 200 mg tablet 200 mg PO BID (DME) Handicap Placard See Rx Instructions .Route .MEDSUPPLY Qty: 1 0RF Rx Instructions: Good from 07/05/2021-07/05/2026; ranolazine [Ranexa] 500 mg tablet extended release 12 hr 500 mg PO BID Qty: 60 11RF multivitamin 1 TABLET tablet 1 tab PO DAILY citalopram 20 MG tablet 20 mg PO DAILY tamsulosin 0.4 MG capsule 0.4 mg PO DAILY esomeprazole magnesium 20 MG capsule 20 mg PO DAILY cod liver oil 1 EACH capsule 1 cap PO BID turmeric 400 MG capsule 400 mg PO DAILY Myrbetriq 50 mg Tablet Extended Release 24 Hr 30 mg PO DAILY apixaban 5 mg tablet 5 mg PO BID Qty: 180 3RF Hold Instructions: Order Changed atorvastatin 80 mg tablet See Rx Instructions .ROUTE .COMPLEX Qty: 90 4RF Dose Instruction: TAKE 1 TABLET BY MOUTH AT BEDTIME Rx Instructions: TAKE 1 TABLET BY MOUTH AT BEDTIME isosorbide mononitrate 120 mg tablet extended release 24 hr 120 mg PO DAILY Qty: 90 3RF Primary Care Provider: Jie Adams Referrals: Jie Adams DO [Primary Care Provider] - Cornell Burkett MD [Med Staff - Active Staff] - As soon as possible Activity Restrictions/Additional Instructions: No signs of a heart attack today. The exact cause of your pain is not clear. If you have a progression or change in your symptoms please return to the emergency room. Otherwise please follow-up outpatient with your panelboard tank pumper. Disposition Disposition: Home, Self Care
[2022-04-23 00:49] VITALS: BP 172/63; PULSE 52; RESP 15; TEMP 36.7; O2SAT 97
== END 2022-04-23 00:53 | disposition home or self-care (01) ==
PROVIDERS: Emergency Provider Emergency Medicine; PCP Family Medicine; Visit Provider Emergency Medicine
DX: R07.9 Chest pain, unspecified (principal); I48.0 Paroxysmal atrial fibrillation; E78.00 Pure hypercholesterolemia, unspecified; Z87.891 Personal history of nicotine dependence; I10 Essential (primary) hypertension; G47.33 Obstructive sleep apnea (adult) (pediatric); I25.10 Atherosclerotic heart disease of native coronary artery without angina pectoris; Z79.01 Long term (current) use of anticoagulants; E66.9 Obesity, unspecified; R60.9 Edema, unspecified
CPT/HCPCS: 71045; 80048; 84484; 85025; 93005; 99284; A4216

== ENCOUNTER → 2022-05-17 | Outpatient (CLI) | payer MEDICARE, OTHER, SELFPAY ==
[2022-05-17 12:08] LABS: Absolute Lymphocyte Count 1.01 X10^3/uL (0.83-4.51); Basophil# 0.02 X10^3/uL; Basophil% 0.3 % (0-1); Eosinophil# 0.27 X10^3/uL; Eosinophils% 4.4 % (0-5); Hematocrit 43.1 % (40-54); Hemoglobin 13.7 g/dL (13.0-16.5); Lymphocyte # 1.01 X10^3/ul (0.83-4.51); Lymphocyte % 16.3 % (19-41); Mean Corp Hgb Conc 31.8 g/dL (32-36); Mean Corpuscular Hgb 30.6 pg (27.0-32.0); Mean Corpuscular Volume 96.2 fL (80-94); Mean Platelet Vol. 10.9 fl (6.2-12.0); Monocyte# 0.88 X10^3/uL; Monocyte% 14.2 % (0-10); NRBC Flagged by Analyzer 0 % (0-5); Neutrophil % 64.5 % (47-70); Platelet Count 173 K/mm3 (150-450); RBC Distribution Width CV 15.1 % (11.6-14.6); RBC Distribution Width SD 54.1 fl (35.1-43.9); Red Blood Count 4.48 M/mm3 (4.6-6.2); White Blood Count 6.2 K/mm3 (4.4-11.0)
[2022-05-17 12:28] LABS: BNP,B-Type NATRIURETIC PEPTIDE 14.1 pg/mL (0-100)
[2022-05-17 12:48] LABS: ALB/GLOB Ratio 0.7 RATIO (0.9-2.4); AST(SGOT) 23 U/L (15-37); Alanine Aminotransfer ALT/SGPT 18 U/L (16-61); Albumin, Serum 3.1 g/dL (3.2-5.0); Alkaline Phosphatase 103 U/L (45-117); Anion Gap 6 (5-15); BUN 23 mg/dL (7-18); BUN/Creat Ratio 12.4 RATIO (10-20); Calcium,Total 9.2 mg/dL (8.5-10.1); Chloride 105 mmol/L (98-107); Cholesterol 118 mg/dL (200); Creatinine, Serum 1.85 mg/dL (0.70-1.30); EST Glomerular Filtration Rate 39 mL/min (>60); Est Glom Filt Rate - Afr Amer 47 mL/min (>60); Globulin 4.3 g/dL (2.2-4.2); Glucose 92 mg/dL (74-106); High Density Lipoprotein 45 mg/dL; Potassium 4.3 mmol/L (3.5-5.1); Protein, Total 7.4 g/dL (6.4-8.2); Sodium Level 139 mmol/L (136-145); Triglycerides 89 mg/dL; Very Low Density Lipoprotein 18 mg/dL (5-40)
== END | disposition home or self-care (01) ==
LOC: MFPLAB 11:07
PROVIDERS: PCP Family Medicine; Visit Provider Family Medicine
DX: R06.02 Shortness of breath (principal); I10 Essential (primary) hypertension
CPT/HCPCS: 36415; 80053; 80061; 83880; 85025

== ENCOUNTER → 2022-05-26 | Outpatient (CLI) | payer MEDICARE, OTHER, SELFPAY ==
--- NOTE | 2022-05-26 12:47 | ECHOD_ITS ---
Reason For Study: SOB Procedure This was a 2D Doppler, Color Flow transthoracic echocardiogram. The study was technically difficult. Contrast injection was performed. Exam performed in department. Left Ventricle Normal LV size. Left ventricular systolic function is normal. The estimated ejection fraction is 60 %. No regional wall motion abnormalities noted. Right Ventricle Normal RV size. Normal systolic function. Atria Normal left atrium. Normal right atrium. Mitral Valve Normal mitral valve. Tricuspid Valve Normal tricuspid valve. Mild (1+) tricuspid valve insufficiency. Pulmonary artery systolic pressure is 39 mmHg. Aortic Valve The aortic valve is not well visualized. Pulmonic Valve Normal pulmonic valve. Great Vessels Normal aortic root. The pulmonary is not well visualized. Normal inferior vena cava. Pericardium/Pleural No pericardial effusion. Medication 22 gauge I.V. with prn adaptor inserted into right arm. Diluted definity 2.5ml given slow IV push to enhance endocardial definition. MMode/2D Measurements & Calculations Ao root diam: 3.3 cm LAV(MOD-sp4): 110.0 ml LA A4 area: 28.5 cm2 LA dimension(2D): 5.3 cm RA A4 area: 16.1 cm2 Time Measurements MV dec time: 0.21 sec Doppler Measurements & Calculations MV E max rell: 89.2 cm/sec Lat Peak E' Rell: 12.7 cm/sec Med Peak E' Rell: 8.9 cm/sec MV A max rell: 69.4 cm/sec E/E' lat: 7.0 E/E' med: 10.1 MV E/A: 1.3 MV V2 max: 110.4 cm/sec Ao V2 max: 115.5 cm/sec MV max P.9 mmHg MV dec slope: 435.9 cm/sec2 Ao max P.3 mmHg MV V2 mean: 64.1 cm/sec MV mean P.9 mmHg MV V2 VTI: 39.0 cm LV V1 max: 82.2 cm/sec PA V2 max: 115.3 cm/sec TR max rell: 296.5 cm/sec LV V1 max P.7 mmHg PA V2 mean: 79.6 cm/sec TR max P.2 mmHg ECHO/Echo Complete Interpretation Summary Normal LV size. Left ventricular systolic function is normal. The estimated ejection fraction is 60 %. Mild (1+) tricuspid valve insufficiency. Pulmonary artery systolic pressure is 39 mmHg. Contrast injection was performed. Ordering Physician: Cornell Gunter Referring Physician: Cornell Gunter Performed By: Lilo Rene RCS
== END | disposition home or self-care (01) ==
PROVIDERS: PCP Family Medicine; Referring Provider Family Medicine; Visit Provider Family Medicine
DX: R06.02 Shortness of breath (principal)
CPT/HCPCS: 93306; Q9957; A4216

== ENCOUNTER 2022-06-05 14:40 | Emergency (ER) | payer MEDICARE, OTHER, SELFPAY ==
[2022-06-05 14:41] VITALS: BP 150/69; PULSE 68; RESP 20; TEMP 36.8; O2SAT 96; BMI 50.1
--- NOTE | 2022-06-05 15:00 | EKG12_ITS ---
Test Reason : CP Blood Pressure : / mmHG Vent. Rate : 070 BPM Atrial Rate : 214 BPM P-R Int : 000 ms QRS Dur : 080 ms QT Int : 420 ms P-R-T Axes : 000 057 079 degrees QTc Int : 453 ms Possible Accelerated Junctional rhythm Low voltage QRS Nonspecific ST abnormality Abnormal ECG Confirmed by KETTY LENZ, HELENA ([id number]), health editor SAMIR RAMIREZ ([id number]) on 06/07/2022 9:49:43 AM Referred By: Confirmed By:KAYLEE HDEZ MD
--- NOTE | 2022-06-05 15:35 | RAD_ITS ---
INDICATION: chest pain EXAMINATION/TECHNIQUE: X-RAY - XR Chest 2 Views COMPARISON: 05/07/2020 FINDINGS: LINES/DEVICES: None. LUNGS: No consolidation, edema or effusion. No pneumothorax. MEDIASTINUM AND CARDIOVASCULAR STRUCTURES: Cardiac silhouette not enlarged. Central airways and mediastinal contour are unremarkable. BONES AND SOFT TISSUES: Unremarkable. RAD/Chest PA and Lateral IMPRESSION: No radiographic evidence of acute cardiopulmonary disease. Electronically Signed: Shree Cunningham MD at 17:04 EDT ,
[2022-06-05 15:40] VITALS: RESP 18
[2022-06-05 15:40] LABS: Absolute Lymphocyte Count 0.33 X10^3/uL (0.83-4.51); Absolute Neutrophil Count 7.5 X10^3/uL (2.0-7.7); Basophil# 0.02 X10^3/uL; Basophil% 0.3 % (0-1); Eosinophil# 0.09 X10^3/uL; Eosinophils% 1.1 % (0-5); Hematocrit 41.9 % (40-54); Hemoglobin 13.9 g/dL (13.0-16.5); Lymphocyte # 0.33 X10^3/ul (0.83-4.51); Lymphocyte % 4.1 % (19-41); Mean Corp Hgb Conc 33.2 g/dL (32-36); Mean Corpuscular Hgb 31.2 pg (27.0-32.0); Mean Corpuscular Volume 93.9 fL (80-94); Mean Platelet Vol. 10.2 fl (6.2-12.0); Monocyte# 0.09 X10^3/uL; Monocyte% 1.1 % (0-10); NRBC Flagged by Analyzer 0 % (0-5); Neutrophil # 7.45 X10^3/uL (2.7-7.7); Neutrophil % 93.1 % (47-70); POSITIVE DIFFERENTIAL YES; Platelet Count 200 K/mm3 (150-450); RBC Distribution Width CV 14.8 % (11.6-14.6); RBC Distribution Width SD 50.8 fl (35.1-43.9); Red Blood Count 4.46 M/mm3 (4.6-6.2)
[2022-06-05 15:42] LABS: Differential Indicated SCAN CRITERIA MET
[2022-06-05 15:59] LABS: Anion Gap 1 (5-15); BUN 20 mg/dL (7-18); BUN/Creat Ratio 11.7 RATIO (10-20); Calcium,Total 8.8 mg/dL (8.5-10.1); Chloride 106 mmol/L (98-107); Creatinine, Serum 1.71 mg/dL (0.70-1.30); EST Glomerular Filtration Rate 42 mL/min (>60); Est Glom Filt Rate - Afr Amer 51 mL/min (>60); Estimated Creatinine Clearance 40.77 ml/min; Glucose 103 mg/dL (74-106); Sodium Level 137 mmol/L (136-145); Troponin-I HS (w/2H Reflex) 9 pg/mL (3.0-78.0)
--- NOTE | 2022-06-05 16:09 | EDS_ITS ---
HPI History of Present Illness Chief Complaint: Chest Pain Informant: patient and spouse/S.O. Narrative Narrative: About an hour prior to arrival, patient suddenly started having chills/rigors, and chest tightness that started shortly afterwards. No dyspnea, syncope or near syncope, focal neurologic deficits/symptoms. States the chest discomfort is gone now. He states the last time this happened, he had a urinary infection, states she was concerned because he was shaking so hard which is why they called EMS. He has a history of a urethral stricture that was dilated with a catheter placed in the OR, however he does not have a catheter now. He has chronic urinary frequency because of this, follows with urology as an outpatient. Chronic edema in his legs no worse than usual. No other focal symptoms. [facility] Medical History Abrasion TEODORO (acute kidney injury) Ambulates with cane Anxiety and depression Arthritis Atherosclerotic heart disease of craig coronary artery without angina pectoris Atrial fibrillation Cardiology follow-up encounter Cellulitis Chronic UTI CPAP (continuous positive airway pressure) dependence Depression Easy bruising Essential hypertension Excessive bleeding Former smoker GERD (gastroesophageal reflux disease) Gout History of echocardiogram History of edema History of left heart catheterization (LHC) (~07/29/19) History of stress test Indwelling urethral catheter present Morbid obesity Obstructive sleep apnea Paroxysmal atrial fibrillation Pure hypercholesterolemia Septic joint of right knee joint Severe sepsis Shortness of breath on exertion Viral syndrome Wears glasses Home Medications citalopram 20 mg tablet 20 mg PO DAILY MOOD 09/21/14 [History Last Taken 02/03/20] multivitamin 1 tab PO DAILY SUPPLEMENT 09/21/14 [History Last Taken 02/03/20] esomeprazole magnesium 20 mg capsule,delayed release 20 mg PO DAILY 05/18/19 [History Last Taken 11/09/21] tamsulosin 0.4 mg capsule 0.4 mg PO DAILY 05/18/19 [History Last Taken 02/03/20] cod liver oil 1 cap PO BID arthritis 02/03/20 [History Last Taken 02/03/20] turmeric 400 mg capsule 400 mg PO DAILY arthritis 02/03/20 [History Last Taken 02/03/20] hydroxychloroquine 200 mg tablet 200 mg PO BID arthritis 04/25/21 [History Last Taken Unknown] Handicap Placard #1 ea 07/05/21 [Rx Last Taken Unknown] apixaban 5 mg tablet 5 mg PO BID #180 tabs 07/15/21 [Rx Last Taken 11/05/21] atorvastatin 80 mg tablet See Rx Instructions .Route .COMPLEX #90 tabs 10/11/21 [Rx Last Taken Unknown] mirabegron 50 mg tablet,extended release 24 hr (Myrbetriq) 30 mg PO DAILY overactive bladder 11/04/21 [History Last Taken Unknown] isosorbide mononitrate 120 mg tablet,extended release 24 hr 120 mg PO DAILY #90 tabs 02/23/22 [Rx Last Taken Unknown] ranolazine 500 mg tablet,extended release,12 hr (Ranexa) 500 mg PO BID #60 tabs 05/23/22 [Rx Last Taken Unknown] sulfamethoxazole 800 mg-trimethoprim 160 mg tablet 1 tab PO BID #14 TABLETS 06/05/22 [Rx Last Taken Unknown] Allergy/AdvReac Type Severity Reaction Status Date / Time bee venom protein (honey bee) Allergy Hives Verified 06/05/22 14:43 amlodipine AdvReac Severe severe Verified 06/05/22 14:43 swelling in hands and feet spider venom AdvReac Other Verified 06/05/22 14:43 Family History Father Heart disease Diabetes CAD (coronary artery disease) History of coronary artery bypass surgery Cardiac pacemaker in situ Other Pure hypercholesterolemia Surgical History History of cystoscopy History of knee surgery History of total right knee replacement Social History Smoking Status: Former smoker how long ago did patient quit smokin alcohol intake: never substance use type: does not use caffeine: Yes Type: tea Number of servings: 2 ROS ROS ED Constitutional Constitutional ED: Reports chills and malaise; Denies fever(s) Eyes Eyes: Denies change in vision or diplopia ENT ENT ED: Denies rhinorrhea or sore throat Cardiovascular Cardiovascular: Reports chest pain and pedal edema; Denies palpitations Respiratory/Chest Respiratory/Chest: Denies cough or dyspnea Gastrointestinal Gastrointestinal: Denies abdominal pain, diarrhea, nausea or vomiting Genitourinary Genitourinary ED: Reports urinary frequency; Denies dysuria or hematuria Musculoskeletal Musculoskeletal: Denies back pain or neck pain Integumentary Denies abscess or rash Neurologic Neurologic: Denies headache(s), paresthesias or weakness Psychiatric Psychiatric: Denies anxiety or suicidal thoughts EXAM Physical Exam Const Vital Signs: 06/05/22 14:41 06/05/22 14:55 06/05/22 14:52 Temperature 98.3 F Temperature Source Oral Pulse Rate 68 Respiratory Rate 20 H Respiratory Effort Short of Breath Blood Pressure 150/69 H Blood Pressure Mean 96 Pulse Ox 96 Oxygen Delivery Method Room Air Room Air Positive well nourished, well developed and obese General Appearance ED: well developed and NAD Nutritional Appearance: obese HEENT Reports moist mucous membranes normocephalic and atraumatic Eyes PERRL and EOMs intact bilaterally Neck full ROM, no lymphadenopathy and supple Chest Wall inspection of chest normal and palpation of chest normal Resp normal respiratory effort and clear to auscultation bilaterally Cardio regular rate, regular rhythm and no murmurs Rate: Negative for tachycardic GI non-tender and non-distended Auscultation: normoactive bowel sounds Palpation: soft Back/Spine no CVA tenderness General Back: other FROM Extremity normal to inspection General Extremety ED: Yes edema; Negative for pulses abnormal or tenderness General Extremity: edema bilateral lower extremity Details: mild; Negative for pulses abnormal Neuro oriented x3, CN's II-XII intact bilaterally and no sensory deficits noted Sensorium / Orientation: awake and alert Motor Exam: strength 5/5 throughout Skin no rashes or lesions noted and no wounds Sepsis Attestation Sepsis Attestation: Sepsis Ruled Out Date exam was performed: 06/05/22 Time exam was performed: 16:00 Possible Source of Sepsis: Pulmonary and Genitourinary MDM MDM MDM Narrative Medical decision making narrative: Obtained a septic work-up on this patient although his vital signs are excellent, and his exam is very benign, in addition to EKG, troponin, and a delta troponin. The initial troponin came back normal at 9, his EKG shows artifact but is otherwise unremarkable. Chest x-ray 2 views of my interpretation negative for pneumonia. Labs noted, he does have a predilection of neutrophils but no bandemia at his total white blood count is normal. Lactate borderline at 2.0, nonspecific. Chronic renal sufficiency is better than it had been last time it was measured. COVID and influenza both negative. At this time awaiting urinalysis to return, and delta troponin measurement. Urinalysis did return showing signs of infection and pyuria, with few epithelials. This was sent for culture and he was given IV Rocephin 1 g empirically. Discussed with the patient and his . I offered admission, he states he feels well to go home and declines and wants to go. His second troponin is pending right now, in the lab. If negative, patient okay to be discharged and will be prescribed antibiotics for his urine. History & Record Review Additional record(s) reviewed:: Prior labs (in our system/EMR) Lab Data Attestation: I reviewed the patient's lab results. Labs: Laboratory Results - last 24 hr 06/05/22 06/05/22 06/05/22 15:20 15:20 15:20 WBC 8.0 RBC 4.46 L Hgb 13.9 Hct 41.9 MCV 93.9 MCH 31.2 MCHC 33.2 RDW Std Deviation 50.8 H RDW Coeff of Abdiel 14.8 H Plt Count 200 MPV 10.2 Immature Gran % (Auto) 0.300 Neut % (Auto) 93.1 H Lymph % (Auto) 4.1 L [place] % (Auto) 1.1 Eos % (Auto) 1.1 Baso % (Auto) 0.3 Absolute Neuts (auto) 7.5 Absolute Lymphs (auto) 0.33 L Nucleated RBC % 0 Differential Comment SCANNED Sodium 137 Potassium TNP Chloride 106 Carbon Dioxide 30.0 Anion Gap 1 L BUN 20 H Creatinine 1.71 H Estim Creat Clear Calc 40.77 Est GFR (MDRD) Af Amer 51 L Est GFR (MDRD) Non-Af 42 L BUN/Creatinine Ratio 11.7 Glucose 103 Lactic Acid 2.0 Calcium 8.8 Troponin I High Sens 9 Urine Color Urine Clarity Urine pH Ur Specific [place] Urine Protein Urine Glucose (UA) Urine Ketones Urine Occult Blood Urine Nitrite Urine Bilirubin Urine Urobilinogen Ur Leukocyte Esterase Urine RBC Urine WBC Ur Squamous Epith Cells Amorphous Sediment Urine Bacteria Urine Mucus 06/05/22 17:01 WBC RBC Hgb Hct MCV MCH MCHC RDW Std Deviation RDW Coeff of Abdiel Plt Count MPV Immature Gran % (Auto) Neut % (Auto) Lymph % (Auto) [place] % (Auto) Eos % (Auto) Baso % (Auto) Absolute Neuts (auto) Absolute Lymphs (auto) Nucleated RBC % Differential Comment Sodium Potassium Chloride Carbon Dioxide Anion Gap BUN Creatinine Estim Creat Clear Calc Est GFR (MDRD) Af Amer Est GFR (MDRD) Non-Af BUN/Creatinine Ratio Glucose Lactic Acid Calcium Troponin I High Sens Urine Color Yellow Urine Clarity Sl. Cloudy Urine pH 6.5 Ur Specific [place] 1.010 Urine Protein Negative Urine Glucose (UA) Normal Urine Ketones Negative Urine Occult Blood 10 H Urine Nitrite Negative Urine Bilirubin Negative Urine Urobilinogen Normal Ur Leukocyte Esterase 500 H Urine RBC 0-5 SEEN Urine WBC 50-100 SEEN Ur Squamous Epith Cells 0-5 SEEN Amorphous Sediment 1+ URATE Urine Bacteria RARE Urine Mucus 0 SEEN Radiography Chest X-Ray - ED: 2 View, Read by ED Physician, No Acute Disease, Chronic Changes and No Infiltrates Diagnostic Testing: Clinical Impression(s) from Imaging Studies Chest X-Ray 06/05/22 15:35 IMPRESSION: No radiographic evidence of acute cardiopulmonary disease. Electronically Signed: Shree Cunningham MD at 17:04 EDT Reading Location ID and State: [address] [place] [address] Tel , Service support , Rhythm Strip Rhythm Strip: Sinus Rhythm Rate: 70 Ectopy: None EKG Initial EKG: Attestation: I personally reviewed and interpreted this EKG as follows: Interpretation: Sinus Rhythm and No Acute Injury Pattern Comments: Significant tremor artifact, sinus rhythm at 70 without any acute injury pattern, but somewhat limited with regards to repolarization abnormalities. T waves appear to be intact. Discharge Plan Triage Chief Complaint: Chest Pain ED Provider: Arpit Chand Dx/Rx/DC Orders Clinical Impression: Urinary tract infection in male, CKD (chronic kidney disease), stage III, Chest pain, Anticoagulated Instructions: UTIs Understanding Prescriptions: New sulfamethoxazole-trimethoprim [sulfamethoxazole-trimethoprim] 800-160 mg tablet 1 tab PO BID Qty: 14 0RF No Action hydroxychloroquine 200 mg tablet 200 mg PO BID (DME) Handicap Placard See Rx Instructions .Route .MEDSUPPLY Qty: 1 0RF Rx Instructions: Good from 07/05/2021-07/05/2026; ranolazine [Ranexa] 500 mg tablet extended release 12 hr 500 mg PO BID Qty: 60 12RF multivitamin 1 TABLET tablet 1 tab PO DAILY citalopram 20 MG tablet 20 mg PO DAILY tamsulosin 0.4 MG capsule 0.4 mg PO DAILY esomeprazole magnesium 20 MG capsule 20 mg PO DAILY cod liver oil 1 EACH capsule 1 cap PO BID turmeric 400 MG capsule 400 mg PO DAILY Myrbetriq 50 mg Tablet Extended Release 24 Hr 30 mg PO DAILY apixaban 5 mg tablet 5 mg PO BID Qty: 180 3RF Hold Instructions: Order Changed atorvastatin 80 mg tablet See Rx Instructions .ROUTE .COMPLEX Qty: 90 4RF Dose Instruction: TAKE 1 TABLET BY MOUTH AT BEDTIME Rx Instructions: TAKE 1 TABLET BY MOUTH AT BEDTIME isosorbide mononitrate 120 mg tablet extended release 24 hr 120 mg PO DAILY Qty: 90 3RF Primary Care Provider: Cornell Gunter Referrals: Cornell Gunter MD [Primary Care Provider] - 3-5 Days (call for follow up appt for reevaluation and to review culture results) Disposition Disposition: Home, Self Care
[2022-06-05 16:12] LABS: Differential Comment SCANNED
[2022-06-05 16:40] VITALS: RESP 18
[2022-06-05 17:10] LABS: Mucous, Urine 0 SEEN /hpf (<or=2+)
[2022-06-05 17:23] LABS: Color, Urine Yellow (Yellow); Glucose, Dipstick Normal (Normal); Ketone-Dipstick Negative (Negative); Leukocyte Esterase-Dipstick 500 /ul (Negative); Nitrite-Dipstick Negative (Negative); Occult Blood-Urine 10 /ul (Negative); Protein-Dipstick Negative (Negative); Urine Bilirubin Dipstick Negative (Negative); Urine Clarity Sl. Cloudy (Clear); Urine Urobilinogen Normal (Normal); Urine pH 6.5 (5.0 - 8.0)
[2022-06-05 17:30] LABS: Reflex Troponin-HS? (from REC) Y
[2022-06-05 17:36] LABS: Amorphous Sediment 1+ URATE; Bacteria RARE /hpf (None Seen); Red Blood Cells-Urine 0-5 SEEN /hpf (0-5); Squamous Epithelial Cells - UA 0-5 SEEN /hpf (0-5); White Blood Cells 50-100 SEEN /hpf (0-5)
[2022-06-05 17:40] VITALS: RESP 18
[2022-06-05] MEDS: Ceftriaxone 1 GM/50 ML BAG IV (18:01)
[2022-06-05] MEDS: Smz/Tmp Ds Tablet 1 TABLET PO (18:02)
[2022-06-05 18:07] LABS: Troponin-I HS 10 pg/mL (3.0-78.0)
[2022-06-05 18:40] VITALS: BP 143/55; PULSE 82; RESP 21; O2SAT 92
[2022-06-05 19:31] LABS: Reflex Lactate? Y
--- NOTE | 2022-06-07 06:27 | ED.RN ---
lab called with critical lab results. blood culture positive cocci in clusters, Dr. dumas reviewed the case. patient treated with bactrim. patient being treated at this time. patient pending sensitive results. to determine proper treatment.
== END 2022-06-05 18:59 | disposition home or self-care (01) ==
PROVIDERS: Emergency Medicine; Emergency Provider Emergency Medicine; PCP Family Medicine; Visit Provider Emergency Medicine
DX: N39.0 Urinary tract infection, site not specified (principal); I48.0 Paroxysmal atrial fibrillation; N18.30 Chronic kidney disease, stage 3 unspecified; I12.9 Hypertensive chronic kidney disease with stage 1 through stage 4 chronic kidney disease, or unspecified chronic kidney disease; R07.9 Chest pain, unspecified; Z87.891 Personal history of nicotine dependence; I25.10 Atherosclerotic heart disease of native coronary artery without angina pectoris; R60.0 Localized edema; E78.00 Pure hypercholesterolemia, unspecified; Z79.01 Long term (current) use of anticoagulants; R35.0 Frequency of micturition; E66.9 Obesity, unspecified; Z20.822 Contact with and (suspected) exposure to COVID-19
CPT/HCPCS: 71046; 80048; 81001; 83605; 84484; 85025; 87040; 87077; 87086; 87088; 87149; 87186; 87428; 93005; 96365; 99285; A4216

== ENCOUNTER → 2022-06-30 | Outpatient (CLI) | payer MEDICARE, OTHER, SELFPAY | END | disposition home or self-care (01) | PROVIDERS: PCP Family Medicine; Visit Provider Family Medicine | DX: K52.9 Noninfective gastroenteritis and colitis, unspecified (principal) ==

== ENCOUNTER → 2022-07-13 | Outpatient (CLI) | payer MEDICARE, OTHER, SELFPAY ==
[2022-07-13 12:26] LABS: Albumin, Serum 3.1 g/dL (3.2-5.0); BUN 17 mg/dL (7-18); BUN/Creat Ratio 9.1 RATIO (10-20); Calcium,Total 8.9 mg/dL (8.5-10.1); Chloride 107 mmol/L (98-107); Creatinine, Serum 1.87 mg/dL (0.70-1.30); EST Glomerular Filtration Rate 38 mL/min (>60); Est Glom Filt Rate - Afr Amer 46 mL/min (>60); Glucose 123 mg/dL (74-106); Phosphorus 2.4 mg/dL (2.5-4.9); Potassium 3.7 mmol/L (3.5-5.1); Sodium Level 141 mmol/L (136-145)
== END | disposition home or self-care (01) ==
LOC: POLAB3 11:14
PROVIDERS: PCP Family Medicine; Visit Provider Internal Medicine Nephrology
DX: N18.32 Chronic kidney disease, stage 3b (principal); N39.0 Urinary tract infection, site not specified
CPT/HCPCS: 36415; 80069; 87077; 87086; 87088; 87186

== ENCOUNTER → 2022-07-24 | Outpatient (CLI) | payer MEDICARE, OTHER, SELFPAY ==
[2022-07-24 10:32] LABS: PSA,Total - Annual Screen 1.02 ng/mL (0.00-4.00)
== END | disposition home or self-care (01) ==
LOC: LAB 09:05
PROVIDERS: PCP Family Medicine; Referring Provider Urology; Visit Provider Urology
DX: Z12.5 Encounter for screening for malignant neoplasm of prostate (principal)
CPT/HCPCS: 36415; 84153; G0103

== ENCOUNTER → 2022-08-14 | Outpatient (CLI) | payer MEDICARE, OTHER, SELFPAY ==
[2022-08-14 12:32] LABS: Absolute Lymphocyte Count 1.03 X10^3/uL (0.83-4.51); Basophil# 0.03 X10^3/uL; Basophil% 0.6 % (0-1); Eosinophil# 0.15 X10^3/uL; Hematocrit 43.2 % (40-54); Hemoglobin 13.7 g/dL (13.0-16.5); Lymphocyte # 1.03 X10^3/ul (0.83-4.51); Lymphocyte % 20.9 % (19-41); Mean Corp Hgb Conc 31.7 g/dL (32-36); Mean Corpuscular Hgb 30.8 pg (27.0-32.0); Mean Corpuscular Volume 97.1 fL (80-94); Monocyte% 14.2 % (0-10); NRBC Flagged by Analyzer 0 % (0-5); Neutrophil # 3.01 X10^3/uL (2.7-7.7); Neutrophil % 61.1 % (47-70); Platelet Count 202 K/mm3 (150-450); RBC Distribution Width CV 14.6 % (11.6-14.6); RBC Distribution Width SD 52.3 fl (35.1-43.9); Red Blood Count 4.45 M/mm3 (4.6-6.2); White Blood Count 4.9 K/mm3 (4.4-11.0)
[2022-08-14 13:41] LABS: ALB/GLOB Ratio 0.8 RATIO (0.9-2.4); AST(SGOT) 23 U/L (15-37); Alanine Aminotransfer ALT/SGPT 19 U/L (16-61); Albumin, Serum 3.1 g/dL (3.2-5.0); Alkaline Phosphatase 112 U/L (45-117); Anion Gap 6 (5-15); BUN 16 mg/dL (7-18); Calcium,Total 9.1 mg/dL (8.5-10.1); Chloride 107 mmol/L (98-107); Creatinine, Serum 1.77 mg/dL (0.70-1.30); EST Glomerular Filtration Rate 41 mL/min (>60); Est Glom Filt Rate - Afr Amer 49 mL/min (>60); Globulin 4.1 g/dL (2.2-4.2); Glucose 104 mg/dL (74-106); Potassium 4.3 mmol/L (3.5-5.1); Protein, Total 7.2 g/dL (6.4-8.2); Sodium Level 139 mmol/L (136-145)
== END | disposition home or self-care (01) ==
LOC: MFPLAB 10:05
PROVIDERS: PCP Family Medicine; Visit Provider Family Medicine
DX: M06.4 Inflammatory polyarthropathy (principal); I48.0 Paroxysmal atrial fibrillation; M18.0 Bilateral primary osteoarthritis of first carpometacarpal joints; M17.0 Bilateral primary osteoarthritis of knee; K21.9 Gastro-esophageal reflux disease without esophagitis; N18.9 Chronic kidney disease, unspecified; I12.9 Hypertensive chronic kidney disease with stage 1 through stage 4 chronic kidney disease, or unspecified chronic kidney disease; E78.5 Hyperlipidemia, unspecified; G47.33 Obstructive sleep apnea (adult) (pediatric); F41.9 Anxiety disorder, unspecified; F32.9 Major depressive disorder, single episode, unspecified; N40.0 Benign prostatic hyperplasia without lower urinary tract symptoms; Z79.899 Other long term (current) drug therapy
CPT/HCPCS: 36415; 80053; 85025

== ENCOUNTER 2022-09-01 13:48 | Emergency (ER) | payer MEDICARE, OTHER, SELFPAY ==
[2022-09-01 13:49] VITALS: BP 154/56; PULSE 74; RESP 22; TEMP 36.9; O2SAT 95; BMI 50.7
--- NOTE | 2022-09-01 14:10 | EKG12_ITS ---
Test Reason : Blood Pressure : / mmHG Vent. Rate : 074 BPM Atrial Rate : 074 BPM P-R Int : 208 ms QRS Dur : 080 ms QT Int : 368 ms P-R-T Axes : 099 034 054 degrees QTc Int : 408 ms Normal sinus rhythm Cannot rule out Inferior infarct , age undetermined Abnormal ECG Confirmed by EDUARDO LENZ, HERMAN ([id number]), purchasing expeditor SAMIR RAMIREZ ([id number]) on 09/04/2022 12:45:14 PM Referred By: Confirmed By:HERMAN CLARK MD
--- NOTE | 2022-09-01 14:11 | ED.VIS.CHEST ---
HPI <Dr. Marty Penaloza DO - Last Filed: 09/05/22 23:09> History of Present Illness Chief Complaint: Chest Pain Informant: patient Onset/Context/Timing Onset: Today Narrative Narrative: Presents by EMS from home 2 hours ago rest noted sudden onset of chills and then chest discomfort. Reports similar symptoms in the past leading to UTI. He is having urine frequency. He has had prostate surgery in May by Dr. Valenzuela due to obstruction. He does not wear a Adams. Denies abdominal pain. Denies nausea vomiting diarrhea. Denies fevers. Denies myalgias. Chest pain is subsiding. Denies any heart attacks in the past states he had heart cath years ago right-sided collaterals. Denies diabetes history. History of paroxysmal A-fib on Eliquis. Denies dyspnea or cough. History of CKD, hypertension, sleep apnea, hyperlipidemia. Status post 324 aspirin by EMS helping his chills. Prior Similar Symptoms: Yes CVD Risk Factors: Positive for Hypertension and Hypercholesterolemia [facility] <Dr. Marty Penaloza DO - Last Filed: 09/05/22 23:09> [facility] Medical History Abrasion TEODORO (acute kidney injury) Ambulates with cane Anxiety and depression Arthritis Atherosclerotic heart disease of [place] coronary artery without angina pectoris Atrial fibrillation Cardiology follow-up encounter Cellulitis Chronic UTI CPAP (continuous positive airway pressure) dependence Depression Easy bruising Essential hypertension Excessive bleeding Former smoker GERD (gastroesophageal reflux disease) Gout History of echocardiogram History of edema History of left heart catheterization (LHC) (~07/29/19) History of stress test Indwelling urethral catheter present Morbid obesity Obstructive sleep apnea Paroxysmal atrial fibrillation Pure hypercholesterolemia Septic joint of right knee joint Severe sepsis Shortness of breath on exertion Viral syndrome Wears glasses Home Medications citalopram 20 mg tablet 20 mg PO DAILY MOOD 09/21/14 [History Last Taken 02/03/20] multivitamin 1 tab PO DAILY SUPPLEMENT 09/21/14 [History Last Taken 02/03/20] esomeprazole magnesium 20 mg capsule,delayed release 20 mg PO DAILY 05/18/19 [History Last Taken 11/09/21] tamsulosin 0.4 mg capsule 0.4 mg PO DAILY 05/18/19 [History Last Taken 02/03/20] cod liver oil 1 cap PO BID arthritis 02/03/20 [History Last Taken 02/03/20] turmeric 400 mg capsule 400 mg PO DAILY arthritis 02/03/20 [History Last Taken 02/03/20] hydroxychloroquine 200 mg tablet 200 mg PO BID arthritis 04/25/21 [History Last Taken Unknown] Handicap Placard #1 ea 07/05/21 [Rx Last Taken Unknown] atorvastatin 80 mg tablet See Rx Instructions .Route .COMPLEX #90 tabs 10/11/21 [Rx Last Taken Unknown] mirabegron 50 mg tablet,extended release 24 hr (Myrbetriq) 30 mg PO DAILY overactive bladder 11/04/21 [History Last Taken Unknown] ranolazine 500 mg tablet,extended release,12 hr (Ranexa) 500 mg PO BID #60 tabs 05/23/22 [Rx Last Taken Unknown] sulfamethoxazole 800 mg-trimethoprim 160 mg tablet 1 tab PO BID #14 TABLETS 06/05/22 [Rx Last Taken Unknown] isosorbide mononitrate 120 mg tablet,extended release 24 hr 120 mg PO DAILY #90 tabs 08/18/22 [Rx Last Taken Unknown] apixaban 5 mg tablet 5 mg PO BID #180 tabs 08/28/22 [Rx Last Taken Unknown] cefuroxime axetil 500 mg tablet 500 mg PO BID #14 tabs 09/01/22 [Rx Last Taken Unknown] Allergy/AdvReac Type Severity Reaction Status Date / Time bee venom protein (honey bee) Allergy Hives Verified 06/05/22 14:43 amlodipine AdvReac Severe severe Verified 06/05/22 14:43 swelling in hands and feet spider venom AdvReac Other Verified 06/05/22 14:43 Family History Father Heart disease Diabetes CAD (coronary artery disease) History of coronary artery bypass surgery Cardiac pacemaker in situ Other Pure hypercholesterolemia Surgical History History of cystoscopy History of knee surgery History of total right knee replacement Social History Smoking Status: Former smoker how long ago did patient quit smokin alcohol intake: never substance use type: does not use caffeine: Yes Type: tea Number of servings: 2 ROS <Dr. Marty Penaloza, DO - Last Filed: 09/05/22 23:09> ROS ED Constitutional Constitutional ED: Reports chills; Denies fever(s) or sweats Eyes Eyes: Denies change in vision ENT ENT ED: Denies dysphagia or sore throat Cardiovascular Cardiovascular: Reports chest pain; Denies leg edema, palpitations or racing heartbeat Respiratory/Chest Respiratory/Chest: Denies cough, dyspnea or dyspnea on exertion Gastrointestinal Gastrointestinal: Denies abdominal pain, diarrhea, nausea or vomiting Genitourinary Genitourinary ED: Reports urinary frequency; Denies dysuria or hematuria Musculoskeletal Musculoskeletal: Denies back pain, extremity pain or neck pain Integumentary Denies rash or wounds Neurologic Neurologic: Denies headache(s), paresthesias or weakness EXAM <Dr. Marty Penaloza, DO - Last Filed: 09/05/22 23:09> Physical Exam Const Vital Signs: 09/01/22 13:49 09/01/22 13:52 09/01/22 15:37 Temperature 98.4 F Temperature Source Oral Pulse Rate 74 72 Respiratory Rate 22 H 22 H Respiratory Effort Non-Labored Respiratory Pattern Normal Blood Pressure 154/56 H 117/48 L Blood Pressure Mean 88 71 Pulse Ox 95 94 Oxygen Delivery Method Room Air Room Air 09/01/22 16:47 Temperature Temperature Source Pulse Rate 76 Respiratory Rate 18 Respiratory Effort Respiratory Pattern Blood Pressure 144/86 H Blood Pressure Mean 105 Pulse Ox 94 Oxygen Delivery Method Room Air Positive well nourished and well developed General Appearance ED: well developed and NAD HEENT Reports moist mucous membranes normocephalic and atraumatic Eyes PERRL, EOMs intact bilaterally and conjunctivae normal General Eye ED: Yes normal appearance of both eyes Neck no lymphadenopathy and supple General: Negative for tenderness Chest Wall Chest: Negative for tenderness Resp normal respiratory effort and normal air movement Effort and Inspection: symmetric chest movement; Negative for respiratory distress Cardio regular rate, regular rhythm and no murmurs Peripheral Pulses: pulses 2+ throughout GI normal to inspection, nondistended, normoactive bowel sounds and non-tender GI Narrative: Peter's McBurney's tenderness. No suprapubic tenderness. Palpation: Negative for guarding or rebound tenderness present Back/Spine no CVA tenderness and no thoracic nor lumbar tenderness Extremity normal to inspection General Extremety ED: Negative for edema or tenderness General Extremity: Negative for edema Neuro oriented x3 and no sensory deficits noted Sensorium / Orientation: awake and alert Skin no rashes or lesions noted and no wounds <Dr. Homero Albert MD - Last Filed: 09/01/22 17:52> Physical Exam Const Vital Signs: 09/01/22 13:49 09/01/22 13:52 09/01/22 15:37 Temperature 98.4 F Temperature Source Oral Pulse Rate 74 72 Respiratory Rate 22 H 22 H Respiratory Effort Non-Labored Respiratory Pattern Normal Blood Pressure 154/56 H 117/48 L Blood Pressure Mean 88 71 Pulse Ox 95 94 Oxygen Delivery Method Room Air Room Air 09/01/22 16:47 Temperature Temperature Source Pulse Rate 76 Respiratory Rate 18 Respiratory Effort Respiratory Pattern Blood Pressure 144/86 H Blood Pressure Mean 105 Pulse Ox 94 Oxygen Delivery Method Room Air MDM <Dr. Marty Penaloza DO - Last Filed: 09/05/22 23:09> MDM MDM Narrative Medical decision making narrative: Interventions / MDM: Differential diagnosis: Chest pain, ACS, UTI Diagnosis considered but do not suspect: Pulm embolism however he is on Eliquis My EKG interpretation: Sinus rate of 74, no ST or T wave changes. Imaging independently reviewed and interpreted by myself: N/A External documents reviewed: From records heart cath 2020 noting collateral changes. Test considered but not ordered:N/A ED course: Patient history of similar from UTI in the past with chills and chest pains. Cardiac work-up initiated along with urine studies with culture. Patient work-up possible UTI CKD with creatinine stable at 1.9. White count 13.2. Rocephin antibiotics. 1700: Reevaluation chest pain-free. Initial troponin negative. Awaiting second troponin at this time for disposition. Signed out to Dr. Albert. Re-evaluation: stable Disposition discussed with patient/family/significant other: Patient Case discussed with consulting clinician: N/A This note was generated with [employer] dictation software. It may contain incorrect words, spelling, and punctuation that were not noted in checking the note before signing. 17:50 patient's secondary troponin came back unchange. He will be discharged home as planned originally. Lab Data Attestation: I reviewed the patient's lab results. Labs: Laboratory Results - last 24 hr 06/09/01/22 09/01/22 14:00 14:49 16:16 WBC 13.2 H RBC 4.53 L Hgb 14.1 Hct 43.2 MCV 95.4 H MCH 31.1 MCHC 32.6 RDW Std Deviation 50.7 H RDW Coeff of Abdiel 14.5 Plt Count 180 MPV 11.1 Immature Gran % (Auto) 0.400 Neut % (Auto) 88.9 H Lymph % (Auto) 4.7 L [place] % (Auto) 4.9 Eos % (Auto) 0.9 Baso % (Auto) 0.2 Absolute Neuts (auto) 11.7 H Absolute Lymphs (auto) 0.62 L Nucleated RBC % 0 Sodium 137 Potassium 4.6 Chloride 104 Carbon Dioxide 28.0 Anion Gap 5 BUN 18 Creatinine 1.93 H Estim Creat Clear Calc 36.12 Est GFR (MDRD) Af Amer 45 L Est GFR (MDRD) Non-Af 37 L BUN/Creatinine Ratio 9.3 L Glucose 92 Calcium 8.9 Troponin I High Sens 8 8 Urine Color Yellow Urine Clarity Clear Urine pH 6.0 Ur Specific [place] 1.015 Urine Protein 30 H Urine Glucose (UA) Normal Urine Ketones Negative Urine Occult Blood 10 H Urine Nitrite Negative Urine Bilirubin Negative Urine Urobilinogen 1 H Ur Leukocyte Esterase 500 H Urine RBC 0 SEEN Urine WBC 25-50 SEEN Ur Squamous Epith Cells 0-5 SEEN Urine Bacteria 2+ Urine Mucus 0 SEEN Radiography Diagnostic Testing: Clinical Impression(s) from Imaging Studies Chest X-Ray 09/01/22 15:08 IMPRESSION: No acute abnormality is seen. Electronically Signed: Wild Wilson MD at 15:24 EDT , <Dr. Homero Albert MD - Last Filed: 09/01/22 17:52> MDM MDM Narrative Medical decision making narrative: Interventions / MDM: Differential diagnosis: Chest pain, ACS, UTI Diagnosis considered but do not suspect: Pulm embolism however he is on Eliquis My EKG interpretation: Sinus rate of 74, no ST or T wave changes. Imaging independently reviewed and interpreted by myself: N/A External documents reviewed: From records heart cath 2020 noting collateral changes. Test considered but not ordered:N/A ED course: Patient history of similar from UTI in the past with chills and chest pains. Cardiac work-up initiated along with urine studies with culture. Patient work-up possible UTI CKD with creatinine stable at 1.9. White count 13.2. Rocephin antibiotics. 1700: Reevaluation chest pain-free. Initial troponin negative. Awaiting second troponin at this time for disposition. Re-evaluation: stable Disposition discussed with patient/family/significant other: Patient Case discussed with consulting clinician: N/A This note was generated with [employer] dictation software. It may contain incorrect words, spelling, and punctuation that were not noted in checking the note before signing. 17:50 patient's secondary bone and came back on change. He will be discharged home as planned originally. Lab Data Labs: Laboratory Results - last 24 hr 09/01/22 09/01/22 09/01/22 14:00 14:49 16:16 WBC 13.2 H RBC 4.53 L Hgb 14.1 Hct 43.2 MCV 95.4 H MCH 31.1 MCHC 32.6 RDW Std Deviation 50.7 H RDW Coeff of Abdiel 14.5 Plt Count 180 MPV 11.1 Immature Gran % (Auto) 0.400 Neut % (Auto) 88.9 H Lymph % (Auto) 4.7 L [place] % (Auto) 4.9 Eos % (Auto) 0.9 Baso % (Auto) 0.2 Absolute Neuts (auto) 11.7 H Absolute Lymphs (auto) 0.62 L Nucleated RBC % 0 Sodium 137 Potassium 4.6 Chloride 104 Carbon Dioxide 28.0 Anion Gap 5 BUN 18 Creatinine 1.93 H Estim Creat Clear Calc 36.12 Est GFR (MDRD) Af Amer 45 L Est GFR (MDRD) Non-Af 37 L BUN/Creatinine Ratio 9.3 L Glucose 92 Calcium 8.9 Troponin I High Sens 8 8 Urine Color Yellow Urine Clarity Clear Urine pH 6.0 Ur Specific [place] 1.015 Urine Protein 30 H Urine Glucose (UA) Normal Urine Ketones Negative Urine Occult Blood 10 H Urine Nitrite Negative Urine Bilirubin Negative Urine Urobilinogen 1 H Ur Leukocyte Esterase 500 H Urine RBC 0 SEEN Urine WBC 25-50 SEEN Ur Squamous Epith Cells 0-5 SEEN Urine Bacteria 2+ Urine Mucus 0 SEEN Radiography Diagnostic Testing: Clinical Impression(s) from Imaging Studies Chest X-Ray 09/01/22 15:08 IMPRESSION: No acute abnormality is seen. Electronically Signed: Wild Wilson MD at 15:24 EDT , Discharge Plan Triage Chief Complaint: Chest Pain ED Provider: Marty Penaloza Dx/Rx/DC Orders Clinical Impression: Chills, CKD (chronic kidney disease), Acute UTI, Chest pain Instructions: Urinary Tract Infections in Men, CKD Dc, ED Chest Pain, Uncertain Cause Prescriptions: New cefuroxime axetil 500 mg tablet 500 mg PO BID Qty: 14 0RF No Action hydroxychloroquine 200 mg tablet 200 mg PO BID (DME) Handicap Placard See Rx Instructions .Route .MEDSUPPLY Qty: 1 0RF Rx Instructions: Good from 07/05/2021-07/05/2026; ranolazine [Ranexa] 500 mg tablet extended release 12 hr 500 mg PO BID Qty: 60 12RF multivitamin 1 TABLET tablet 1 tab PO DAILY citalopram 20 MG tablet 20 mg PO DAILY tamsulosin 0.4 MG capsule 0.4 mg PO DAILY esomeprazole magnesium 20 MG capsule 20 mg PO DAILY cod liver oil 1 EACH capsule 1 cap PO BID turmeric 400 MG capsule 400 mg PO DAILY Myrbetriq 50 mg Tablet Extended Release 24 Hr 30 mg PO DAILY sulfamethoxazole-trimethoprim [sulfamethoxazole-trimethoprim] 800-160 mg tablet 1 tab PO BID Qty: 14 0RF atorvastatin 80 mg tablet See Rx Instructions .ROUTE .COMPLEX Qty: 90 4RF Dose Instruction: TAKE 1 TABLET BY MOUTH AT BEDTIME Rx Instructions: TAKE 1 TABLET BY MOUTH AT BEDTIME isosorbide mononitrate 120 mg tablet extended release 24 hr 120 mg PO DAILY Qty: 90 3RF apixaban 5 mg tablet 5 mg PO BID Qty: 180 3RF Hold Instructions: Order Changed Primary Care Provider: Cornell Gunter Referrals: Cornell Gunter MD [Primary Care Provider] - 3-5 Days Activity Restrictions/Additional Instructions: Your work-up is positive for urinary tract infection culture sent. Take antibiotic as described. Labs is 1.80 stable from your previous labs. Your cardiac work-up is negative. Follow-up with your doctor for reevaluation and return if worsening symptoms. Disposition Disposition: Home, Self Care Discharge Date/Time: 09/01/22 17:59
[2022-09-01 14:44] LABS: Absolute Lymphocyte Count 0.62 X10^3/uL (0.83-4.51); Absolute Neutrophil Count 11.7 X10^3/uL (2.0-7.7); Basophil# 0.03 X10^3/uL; Basophil% 0.2 % (0-1); Eosinophil# 0.12 X10^3/uL; Eosinophils% 0.9 % (0-5); Hematocrit 43.2 % (40-54); Hemoglobin 14.1 g/dL (13.0-16.5); Lymphocyte # 0.62 X10^3/ul (0.83-4.51); Lymphocyte % 4.7 % (19-41); Mean Corp Hgb Conc 32.6 g/dL (32-36); Mean Corpuscular Hgb 31.1 pg (27.0-32.0); Mean Corpuscular Volume 95.4 fL (80-94); Mean Platelet Vol. 11.1 fl (6.2-12.0); Monocyte# 0.65 X10^3/uL; Monocyte% 4.9 % (0-10); NRBC Flagged by Analyzer 0 % (0-5); Neutrophil # 11.73 X10^3/uL (2.7-7.7); Neutrophil % 88.9 % (47-70); Platelet Count 180 K/mm3 (150-450); RBC Distribution Width CV 14.5 % (11.6-14.6); RBC Distribution Width SD 50.7 fl (35.1-43.9); Red Blood Count 4.53 M/mm3 (4.6-6.2); White Blood Count 13.2 K/mm3 (4.4-11.0)
[2022-09-01 14:58] LABS: Mucous, Urine 0 SEEN /hpf (<or=2+); Red Blood Cells-Urine 0 SEEN /hpf (0-5)
--- NOTE | 2022-09-01 15:08 | RAD_ITS ---
STUDY: X-RAY CHEST REASON FOR EXAM: Male, 71 years old. Chest pain TECHNIQUE: PA and lateral views of the chest. COMPARISON: Comparison is made with prior study June 05, 2022. FINDINGS: EKG electrodes are seen. The lungs are clear and expanded. There is no demonstrated pleural abnormality. Normal size heart. Normal mediastinum and [place]. Normal visualized pulmonary arteries. There is atherosclerotic tortuosity of the aortic arch and descending thoracic aorta. There are diffuse degenerative changes of the visualized thoracic spine. Normal visualized ribs, clavicles, and shoulders. There is no demonstrated abnormality of the visualized soft tissue structures of the upper abdomen. RAD/Chest PA and Lateral IMPRESSION: No acute abnormality is seen. Electronically Signed: Wild Wilson MD at 15:24 EDT ,
[2022-09-01 15:09] LABS: Anion Gap 5 (5-15); BUN 18 mg/dL (7-18); BUN/Creat Ratio 9.3 RATIO (10-20); Calcium,Total 8.9 mg/dL (8.5-10.1); Chloride 104 mmol/L (98-107); Creatinine, Serum 1.93 mg/dL (0.70-1.30); EST Glomerular Filtration Rate 37 mL/min (>60); Est Glom Filt Rate - Afr Amer 45 mL/min (>60); Estimated Creatinine Clearance 36.12 ml/min; Glucose 92 mg/dL (74-106); Potassium 4.6 mmol/L (3.5-5.1); Sodium Level 137 mmol/L (136-145); Troponin-I HS (w/2H Reflex) 8 pg/mL (3.0-78.0)
[2022-09-01 15:10] LABS: Color, Urine Yellow (Yellow); Glucose, Dipstick Normal (Normal); Ketone-Dipstick Negative (Negative); Leukocyte Esterase-Dipstick 500 /ul (Negative); Nitrite-Dipstick Negative (Negative); Occult Blood-Urine 10 /ul (Negative); Protein-Dipstick 30 mg/dl (Negative); Specific Gravity, Urine 1.015 (1.002-1.030); Urine Bilirubin Dipstick Negative (Negative); Urine Clarity Clear (Clear); Urine Urobilinogen 1 mg/dl (Normal)
[2022-09-01 15:21] LABS: Bacteria 2+ /hpf (None Seen); Squamous Epithelial Cells - UA 0-5 SEEN /hpf (0-5); White Blood Cells 25-50 SEEN /hpf (0-5)
[2022-09-01 15:37] VITALS: BP 117/48; PULSE 72; RESP 22; O2SAT 94
--- NOTE | 2022-09-01 15:38 | ED.RN ---
Patient resting with no complaints
[2022-09-01] MEDS: Ceftriaxone 1 GM/50 ML BAG IV (15:48)
--- NOTE | 2022-09-01 16:18 | ED.RN ---
Blood drawn and sent to lab for 2nd troponin
[2022-09-01 16:38] LABS: Reflex Troponin-HS? (from REC) Y
[2022-09-01 16:47] VITALS: BP 144/86; PULSE 76; RESP 18; O2SAT 94
[2022-09-01 17:18] LABS: Troponin-I HS 8 pg/mL (3.0-78.0)
[2022-09-01 17:51] VITALS: BP 122/67; PULSE 78; RESP 16; O2SAT 98
== END 2022-09-01 17:59 | disposition home or self-care (01) ==
PROVIDERS: Emergency Provider Emergency Medicine; PCP Family Medicine; Visit Provider Emergency Medicine
DX: N39.0 Urinary tract infection, site not specified (principal); I48.0 Paroxysmal atrial fibrillation; R68.83 Chills (without fever); I12.9 Hypertensive chronic kidney disease with stage 1 through stage 4 chronic kidney disease, or unspecified chronic kidney disease; N18.9 Chronic kidney disease, unspecified; I25.10 Atherosclerotic heart disease of native coronary artery without angina pectoris; Z87.891 Personal history of nicotine dependence; R07.9 Chest pain, unspecified; E78.00 Pure hypercholesterolemia, unspecified; Z79.01 Long term (current) use of anticoagulants; F41.8 Other specified anxiety disorders; Z99.89 Dependence on other enabling machines and devices; Z79.899 Other long term (current) drug therapy; K21.9 Gastro-esophageal reflux disease without esophagitis; M19.90 Unspecified osteoarthritis, unspecified site; Z96.651 Presence of right artificial knee joint
CPT/HCPCS: 71046; 80048; 81001; 84484; 85025; 87077; 87086; 87088; 87186; 93005; 96365; 99285; A4216

== ENCOUNTER 2022-10-01 22:44 | Emergency (ER) | payer MEDICARE, OTHER, SELFPAY ==
[2022-10-01 22:46] VITALS: BP 166/49; PULSE 88; RESP 24; TEMP 37.6; O2SAT 93; BMI 52.8
[2022-10-01 22:48] VITALS: BP 166/49; PULSE 88; RESP 20; TEMP 37.6; O2SAT 96
[2022-10-01] MEDS: Acetaminophen 500 MG Tablet 1000 MG PO (23:13)
[2022-10-01 23:32] LABS: Color, Urine Yellow (Yellow); Glucose, Dipstick Normal (Normal); Ketone-Dipstick Negative (Negative); Leukocyte Esterase-Dipstick 500 /ul (Negative); Nitrite-Dipstick Negative (Negative); Occult Blood-Urine 25 /ul (Negative); Protein-Dipstick 15 mg/dl (Negative); Urine Bilirubin Dipstick Negative (Negative); Urine Clarity Clear (Clear); Urine Urobilinogen Normal (Normal)
[2022-10-01 23:38] LABS: White Blood Cells 50-100 SEEN /hpf (0-5)
[2022-10-01 23:39] LABS: Bacteria 1+ /hpf (None Seen); Mucous, Urine 1+ /hpf (<or=2+); Red Blood Cells-Urine 0-5 SEEN /hpf (0-5); Squamous Epithelial Cells - UA 0-5 SEEN /hpf (0-5)
--- NOTE | 2022-10-02 00:32 | EDS_ITS ---
HPI History of Present Illness Chief Complaint: Shortness of Breath Informant: patient and spouse/S.O. Narrative Narrative: Patient is a 71-year-old male with past medical history of paroxysmal atrial fibrillation as well as hypertension hyperlipidemia morbid obesity and chronic kidney disease. He states that today he was in the shower when he suddenly got chills and felt short of breath. He states that the last time he developed the symptoms of chills and shortness of breath he had a urinary tract infection. He denies any urinary frequency urgency or dysuria. He denies any history of immunosuppression. He states that he does not have history of lung disorder and he denies any need for supplemental oxygen. At this time he states he is concerned that he has developed a UTI and with this comes in for evaluation [facility] Medical History Abrasion TEODORO (acute kidney injury) Ambulates with cane Anxiety and depression Arthritis Atherosclerotic heart disease of [place] coronary artery without angina pectoris Atrial fibrillation Cardiology follow-up encounter Cellulitis Chronic UTI CPAP (continuous positive airway pressure) dependence Depression Easy bruising Essential hypertension Excessive bleeding Former smoker GERD (gastroesophageal reflux disease) Gout History of echocardiogram History of edema History of left heart catheterization (LHC) (~07/29/19) History of stress test Indwelling urethral catheter present Morbid obesity Obstructive sleep apnea Paroxysmal atrial fibrillation Pure hypercholesterolemia Septic joint of right knee joint Severe sepsis Shortness of breath on exertion Viral syndrome Wears glasses Home Medications citalopram 20 mg tablet 20 mg PO DAILY MOOD 09/21/14 [History Last Taken 02/03/20] multivitamin 1 tab PO DAILY SUPPLEMENT 09/21/14 [History Last Taken 02/03/20] esomeprazole magnesium 20 mg capsule,delayed release 20 mg PO DAILY 05/18/19 [History Last Taken 11/09/21] tamsulosin 0.4 mg capsule 0.4 mg PO DAILY 05/18/19 [History Last Taken 02/03/20] cod liver oil 1 cap PO BID arthritis 02/03/20 [History Last Taken 02/03/20] turmeric 400 mg capsule 450 mg PO DAILY arthritis 02/03/20 [History Last Taken 02/03/20] hydroxychloroquine 200 mg tablet 200 mg PO BID arthritis 04/25/21 [History Last Taken Unknown] Handicap Placard #1 ea 07/05/21 [Rx Last Taken Unknown] atorvastatin 80 mg tablet See Rx Instructions .Route .COMPLEX #90 tabs 10/11/21 [Rx Last Taken Unknown] ranolazine 500 mg tablet,extended release,12 hr (Ranexa) 500 mg PO BID #60 tabs 05/23/22 [Rx Last Taken Unknown] isosorbide mononitrate 120 mg tablet,extended release 24 hr 120 mg PO DAILY #90 tabs 08/18/22 [Rx Last Taken Unknown] apixaban 5 mg tablet 5 mg PO BID #180 tabs 08/28/22 [Rx Last Taken Unknown] mirtazapine 30 mg tablet 30 mg PO QHS 10/01/22 [History Last Taken Unknown] oxybutynin chloride 10 mg tablet,extended release 24 hr 10 mg PO DAILY 10/01/22 [History Last Taken Unknown] cephalexin 500 mg capsule 500 mg PO TID 7 days #21 caps 10/02/22 [Rx Last Taken Unknown] Allergy/AdvReac Type Severity Reaction Status Date / Time bee venom protein (honey bee) Allergy Hives Verified 10/01/22 22:50 amlodipine AdvReac Severe severe Verified 10/01/22 22:50 swelling in hands and feet spider venom AdvReac Other Verified 10/01/22 22:50 Family History Father Heart disease Diabetes CAD (coronary artery disease) History of coronary artery bypass surgery Cardiac pacemaker in situ Other Pure hypercholesterolemia Surgical History History of cystoscopy History of knee surgery History of total right knee replacement Social History Smoking Status: Former smoker how long ago did patient quit smokin alcohol intake: never substance use type: does not use caffeine: Yes Type: tea Number of servings: 2 ROS ROS ED Constitutional Constitutional ED: Reports chills, fever(s) and subjective ENT ENT ED: Denies rhinorrhea or sore throat Cardiovascular Cardiovascular: Denies chest pain Respiratory/Chest Respiratory/Chest: Reports dyspnea; Denies cough Gastrointestinal Gastrointestinal: Denies abdominal pain, diarrhea, nausea or vomiting Genitourinary Genitourinary ED: Denies dysuria or urinary frequency Musculoskeletal Musculoskeletal: Denies myalgias Integumentary Denies rash Neurologic Neurologic: Denies headache(s) Hematologic/Lymphatic Hematologic/Lymphatic: Reports easy bleeding and easy bruising EXAM Physical Exam Const Vital Signs: 10/01/22 22:46 10/01/22 22:48 10/01/22 22:49 Temperature 99.7 F H 99.7 F H Temperature Source Temporal Temporal Pulse Rate 88 88 Respiratory Rate 24 H 20 H Respiratory Effort Short of Breath Labored Blood Pressure 166/49 H 166/49 H Blood Pressure Mean 88 88 Pulse Ox 93 96 Oxygen Delivery Method Room Air Room Air Positive well nourished, well developed and obese General Appearance ED: well developed Nutritional Appearance: obese HEENT Reports moist mucous membranes HEENT Narrative: No tongue or lip swelling no oral lesions no airway edema or compromise Eyes PERRL and EOMs intact bilaterally General Eye ED: Negative for scleral icterus Neck supple and no JVD Resp normal respiratory effort and clear to auscultation bilaterally Resp Narrative: Breath sounds are slightly diminished throughout but overall clear to auscultation. No nasal flaring retractions tachypnea or accessory muscle use. Cardio regular rate and regular rhythm Rate: other Other Details: Radial pulses are plus 2 out of 4 bilaterally GI normal to inspection, nondistended, normoactive bowel sounds, non-tender, non- distended and no masses GI Narrative: Abdomen is obese soft nontender and nondistended with normal active bowel sounds. No voluntary guarding or rigidity. No pulsatile mass or fluid wave. Auscultation: normoactive bowel sounds Palpation: soft Back/Spine no CVA tenderness Extremity normal to inspection Neuro oriented x3, CN's II-XII intact bilaterally and no sensory deficits noted Sensorium / Orientation: alert Psych mental status grossly normal Skin no rashes or lesions noted General Skin Exam: Negative for jaundice MDM MDM MDM Narrative Medical decision making narrative: Patient presented to the ER with low-grade temperature and otherwise was satting in the mid 90s on room air without history of lung disorder. Patient does report of subjective fevers and chills with shortness of breath we discussed the differential diagnosis could be pneumonia versus upper respiratory viral infection versus cardiac event versus UTI. I discussed with patient potential of obtaining EKG and blood work as well as chest x-ray secondary to his symptoms but he has little concern there is something else going on besides the development of urinary tract infection and therefore only once a urine sample obtained. UA did show changes consistent with infection with 50-100 white blood cells with +1 bacteria. Secondary to this urine was sent for culture. Patient was started on antibiotics secondary to the UTI but as vitals are stable and he is not requiring supplemental oxygen and he has no physical exam findings concerning for urosepsis he can be discharged home and follow-up on an outpatient basis History & Record Review Discussion w/independent historian: Patient and Significant other Lab Data Attestation: I reviewed the patient's lab results. Labs: Laboratory Results - last 24 hr 10/01/22 23:20 Urine Color Yellow Urine Clarity Clear Urine pH 6.0 Ur Specific [place] 1.010 Urine Protein 15 H Urine Glucose (UA) Normal Urine Ketones Negative Urine Occult Blood 25 H Urine Nitrite Negative Urine Bilirubin Negative Urine Urobilinogen Normal Ur Leukocyte Esterase 500 H Urine RBC 0-5 SEEN Urine WBC 50-100 SEEN Ur Squamous Epith Cells 0-5 SEEN Urine Bacteria 1+ Urine Mucus 1+ Discharge Plan Triage Chief Complaint: Shortness of Breath ED Provider: Trever Arenas Dx/Rx/DC Orders Clinical Impression: Urinary tract infection in male, Essential hypertension, Current use of intermediate designer anticoagulation, Paroxysmal atrial fibrillation Instructions: Urinary Tract Infections in Men Prescriptions: New cephalexin 500 mg capsule 500 mg PO TID 7 Days Qty: 21 0RF No Action hydroxychloroquine 200 mg tablet 200 mg PO BID (DME) Handicap Placard See Rx Instructions .Route .MEDSUPPLY Qty: 1 0RF Rx Instructions: Good from 07/05/2021-07/05/2026; ranolazine [Ranexa] 500 mg tablet extended release 12 hr 500 mg PO BID Qty: 60 12RF multivitamin 1 TABLET tablet 1 tab PO DAILY citalopram 20 MG tablet 20 mg PO DAILY tamsulosin 0.4 MG capsule 0.4 mg PO DAILY esomeprazole magnesium 20 MG capsule 20 mg PO DAILY cod liver oil 1 EACH capsule 1 cap PO BID turmeric 400 MG capsule 450 mg PO DAILY mirtazapine 30 mg tablet 30 mg PO QHS oxybutynin chloride 10 mg tablet extended release 24hr 10 mg PO DAILY atorvastatin 80 mg tablet See Rx Instructions .ROUTE .COMPLEX Qty: 90 4RF Dose Instruction: TAKE 1 TABLET BY MOUTH AT BEDTIME Rx Instructions: TAKE 1 TABLET BY MOUTH AT BEDTIME isosorbide mononitrate 120 mg tablet extended release 24 hr 120 mg PO DAILY Qty: 90 3RF apixaban 5 mg tablet 5 mg PO BID Qty: 180 3RF Hold Instructions: Order Changed Primary Care Provider: Cornell Gunter Referrals: Cornell Gunter MD [Primary Care Provider] - Activity Restrictions/Additional Instructions: Your urine shows changes consistent with infection. Take antibiotic as directed to help resolve the infection. It would typically take 2 days before you notice improvement of symptoms. If you have any further concerns or worsening of symptoms despite taking your antibiotic please return for repeat evaluation Disposition Disposition: Home, Self Care Discharge Date/Time: 10/02/22 00:42
[2022-10-02] MEDS: Cephalexin 250 MG Capsule 500 MG PO (00:41)
== END 2022-10-02 00:42 | disposition home or self-care (01) ==
PROVIDERS: Emergency Provider Emergency Medicine; PCP Family Medicine; Visit Provider Emergency Medicine
DX: N39.0 Urinary tract infection, site not specified (principal); I48.0 Paroxysmal atrial fibrillation; E66.01 Morbid (severe) obesity due to excess calories; I12.9 Hypertensive chronic kidney disease with stage 1 through stage 4 chronic kidney disease, or unspecified chronic kidney disease; N18.9 Chronic kidney disease, unspecified; I25.10 Atherosclerotic heart disease of native coronary artery without angina pectoris; E78.00 Pure hypercholesterolemia, unspecified; R68.83 Chills (without fever); R06.02 Shortness of breath; Z79.01 Long term (current) use of anticoagulants; Z79.899 Other long term (current) drug therapy; Z87.891 Personal history of nicotine dependence
CPT/HCPCS: 81001; 87077; 87086; 87088; 87186; 99285

== ENCOUNTER → 2022-10-05 | Outpatient (CLI) | payer MEDICARE, OTHER, SELFPAY ==
[2022-10-05 13:36] LABS: Albumin, Serum 2.8 g/dL (3.2-5.0); BUN 17 mg/dL (7-18); BUN/Creat Ratio 8.9 RATIO (10-20); Calcium,Total 8.7 mg/dL (8.5-10.1); Chloride 108 mmol/L (98-107); Creatinine, Serum 1.92 mg/dL (0.70-1.30); EST Glomerular Filtration Rate 37 mL/min (>60); Est Glom Filt Rate - Afr Amer 45 mL/min (>60); Glucose 135 mg/dL (74-106); Phosphorus 3.3 mg/dL (2.5-4.9); Sodium Level 140 mmol/L (136-145)
[2022-10-05 13:49] LABS: PTHIN 94.6 pg/mL (18.4-80.1)
== END | disposition home or self-care (01) ==
LOC: POLAB3 10-09 06:33
PROVIDERS: PCP Family Medicine; Visit Provider Internal Medicine Nephrology
DX: N18.32 Chronic kidney disease, stage 3b (principal)
CPT/HCPCS: 36415; 80069; 83970

== ENCOUNTER → 2022-10-10 | Outpatient (CLI) | payer MEDICARE, OTHER, SELFPAY | END | disposition home or self-care (01) | PROVIDERS: PCP Family Medicine; Visit Provider Internal Medicine Nephrology | DX: N39.0 Urinary tract infection, site not specified (principal) | CPT/HCPCS: 87077; 87086; 87088; 87186 ==

== ENCOUNTER 2022-11-19 12:23 | Emergency (ER) | payer MEDICARE, OTHER, SELFPAY ==
[2022-11-19 12:24] VITALS: BP 210/87; PULSE 79; RESP 14; TEMP 36.3; O2SAT 100; BMI 48.7
--- NOTE | 2022-11-19 13:39 | RAD_ITS ---
STUDY: X-RAY - LUMBAR SPINE REASON FOR EXAM: Male, 71 years old. Pain TECHNIQUE: 2 view(s) of the lumbar spine were obtained. COMPARISON: None FINDINGS: There is straightening of the normal lumbar lordosis. There is no substantial scoliosis. There is a normal alignment of the vertebrae. There is multilevel endplate spondylosis of the lumbar vertebrae. There is multi-level degenerative disc disease with multi-level disc space narrowing. There is no demonstrated fracture. There is atherosclerotic calcification of the abdominal aorta without a demonstrated aneurysm. RAD/Lumbar Spine 2 or 3 Views IMPRESSION: Degenerative changes of the spine, as detailed above. Electronically Signed: Arpit Ngo MD at 13:56 EDT ,
[2022-11-19] MEDS: Gabapentin 300 MG Capsule PO (13:54)
--- NOTE | 2022-11-19 13:55 | ED.VIS.BACK ---
HPI History of Present Illness Chief Complaint: Back Informant: patient and spouse/S.O. Narrative Narrative: Left lower back pain for approximately 3 weeks after lifting a table saw. Pain occasionally radiates to his left hip. No loss of bowel or bladder control. Reports saw his PCP 9 days ago placed on meloxicam and prednisone and Flexeril. He finished the prednisone. He is seen a chiropractor with TENS unit treatment stating it worsens after treatment. No history of similar. Prior similar symptoms: No PFSH PFSH Medical History Abrasion TEODORO (acute kidney injury) Ambulates with cane Anxiety and depression Arthritis Atherosclerotic heart disease of [place] coronary artery without angina pectoris Atrial fibrillation Cardiology follow-up encounter Cellulitis Chronic UTI CPAP (continuous positive airway pressure) dependence Depression Easy bruising Essential hypertension Excessive bleeding Former smoker GERD (gastroesophageal reflux disease) Gout History of echocardiogram History of edema History of left heart catheterization (LHC) (~07/29/19) History of stress test Indwelling urethral catheter present Morbid obesity Obstructive sleep apnea Paroxysmal atrial fibrillation Pure hypercholesterolemia Septic joint of right knee joint Severe sepsis Shortness of breath on exertion Viral syndrome Wears glasses Home Medications citalopram 20 mg tablet 20 mg PO DAILY MOOD 09/21/14 [History Last Taken 02/03/20] multivitamin 1 tab PO DAILY SUPPLEMENT 09/21/14 [History Last Taken 02/03/20] esomeprazole magnesium 20 mg capsule,delayed release 20 mg PO DAILY 05/18/19 [History Last Taken 11/09/21] tamsulosin 0.4 mg capsule 0.4 mg PO DAILY 05/18/19 [History Last Taken 02/03/20] cod liver oil 1 cap PO BID arthritis 02/03/20 [History Last Taken 02/03/20] turmeric 400 mg capsule 450 mg PO DAILY arthritis 02/03/20 [History Last Taken 02/03/20] hydroxychloroquine 200 mg tablet 200 mg PO BID arthritis 04/25/21 [History Last Taken Unknown] Handicap Placard #1 ea 07/05/21 [Rx Last Taken Unknown] atorvastatin 80 mg tablet See Rx Instructions .Route .COMPLEX #90 tabs 10/11/21 [Rx Last Taken Unknown] ranolazine 500 mg tablet,extended release,12 hr (Ranexa) 500 mg PO BID #60 tabs 05/23/22 [Rx Last Taken Unknown] isosorbide mononitrate 120 mg tablet,extended release 24 hr 120 mg PO DAILY #90 tabs 08/18/22 [Rx Last Taken Unknown] apixaban 5 mg tablet 5 mg PO BID #180 tabs 08/28/22 [Rx Last Taken Unknown] mirtazapine 30 mg tablet 30 mg PO QHS 10/01/22 [History Last Taken Unknown] oxybutynin chloride 10 mg tablet,extended release 24 hr 10 mg PO DAILY 10/01/22 [History Last Taken Unknown] gabapentin 300 mg capsule 300 mg PO QHS #30 caps 11/19/22 [Rx Last Taken Unknown] meloxicam 15 mg tablet 15 mg PO DAILY 11/19/22 [History Last Taken Unknown] Allergy/AdvReac Type Severity Reaction Status Date / Time bee venom protein (honey bee) Allergy Hives Verified 11/19/22 12:24 amlodipine AdvReac Severe severe Verified 11/19/22 12:24 swelling in hands and feet spider venom AdvReac Other Verified 11/19/22 12:24 Family History Father Heart disease Diabetes CAD (coronary artery disease) History of coronary artery bypass surgery Cardiac pacemaker in situ Other Pure hypercholesterolemia Surgical History History of cystoscopy History of knee surgery History of total right knee replacement Social History household members: spouse Smoking Status: Former smoker how long ago did patient quit smokin alcohol intake: never substance use type: does not use caffeine: Yes Type: tea Number of servings: 2 ROS ROS ED Constitutional Constitutional ED: Denies chills, fever(s) or sweats Eyes Eyes: Denies change in vision ENT ENT ED: Denies dysphagia or sore throat Cardiovascular Cardiovascular: Denies chest pain, leg edema, palpitations or racing heartbeat Respiratory/Chest Respiratory/Chest: Denies cough, dyspnea or dyspnea on exertion Gastrointestinal Gastrointestinal: Denies abdominal pain, diarrhea, nausea or vomiting Genitourinary Genitourinary ED: Denies dysuria, hematuria or urinary frequency Musculoskeletal Musculoskeletal: Reports back pain; Denies extremity pain or neck pain Integumentary Denies rash or wounds Neurologic Neurologic: Denies headache(s), paresthesias or weakness EXAM Physical Exam Const Vital Signs: 11/19/22 12:24 11/19/22 14:24 11/19/22 14:44 Temperature 97.3 F L Temperature Source Temporal Pulse Rate 79 Respiratory Rate 14 20 H 20 H Blood Pressure 210/87 H Blood Pressure Mean 128 Pulse Ox 100 Positive well nourished and well developed Constitutional Narrative: BMI 48. General Appearance ED: well developed and NAD HEENT Reports moist mucous membranes normocephalic and atraumatic Eyes PERRL, EOMs intact bilaterally and conjunctivae normal General Eye ED: Yes normal appearance of both eyes Neck no lymphadenopathy and supple General: Negative for tenderness Chest Wall Chest: Negative for tenderness Resp normal respiratory effort and normal air movement Effort and Inspection: symmetric chest movement; Negative for respiratory distress Cardio regular rate, regular rhythm and no murmurs Peripheral Pulses: pulses 2+ throughout GI normal to inspection, nondistended, normoactive bowel sounds and non-tender Palpation: Negative for guarding or rebound tenderness present Back/Spine no CVA tenderness Back/Spine Narrative: No midline thoracic lumbar tenderness. Tender palpation left paralumbar. Straight leg test negative. 1+ patellar reflex bilaterally. Extremity normal to inspection General Extremety ED: Negative for edema or tenderness General Extremity: Negative for edema Neuro oriented x3 and no sensory deficits noted Sensorium / Orientation: awake and alert Skin no rashes or lesions noted and no wounds MDM MDM MDM Narrative Medical decision making narrative: Interventions / MDM: Differential diagnosis: Sciatica, disc herniation Diagnosis considered but do not suspect: No cauda equina symptoms My EKG interpretation: N/A Imaging independently reviewed and interpreted by myself: Lumbar spine 3 views: Diffuse degenerative changes all 5 levels, no spondylolisthesis. External documents reviewed: N/A Test considered but not ordered:N/A ED course: Patient continued pain left side rating left hip. Discussed sciatica symptoms. No cauda equina symptoms. He started on gabapentin in the ED. X-ray studies obtained no degenerative changes. Currently on Flexeril and meloxicam by his PCP. We will continue gabapentin. He will follow-up with his doctor and will call tomorrow for potential physical therapy as symptoms ongoing for 3 weeks. He is able to ambulate. All questions were answered. Re-evaluation: stable Disposition discussed with patient/family/significant other: Patient and significant other Case discussed with consulting clinician: N/A This note was generated with [employer] dictation software. It may contain incorrect words, spelling, and punctuation that were not noted in checking the note before signing. Radiography Diagnostic Testing: Clinical Impression(s) from Imaging Studies Lumbar Spine X-Ray 11/19/22 13:39 IMPRESSION: Degenerative changes of the spine, as detailed above. Electronically Signed: Arpit Ngo MD at 13:56 EDT , Discharge Plan Triage Chief Complaint: Back ED Provider: Marty Penaloza Dx/Rx/DC Orders Clinical Impression: Sciatica, Degenerative disk disease Instructions: ED Degenerative Disk Disease, ED Sciatica Prescriptions: New gabapentin 300 mg capsule 300 mg PO QHS Qty: 30 0RF No Action hydroxychloroquine 200 mg tablet 200 mg PO BID (DME) Handicap Placard See Rx Instructions .Route .MEDSUPPLY Qty: 1 0RF Rx Instructions: Good from 07/05/2021-07/05/2026; ranolazine [Ranexa] 500 mg tablet extended release 12 hr 500 mg PO BID Qty: 60 12RF multivitamin 1 TABLET tablet 1 tab PO DAILY citalopram 20 MG tablet 20 mg PO DAILY tamsulosin 0.4 MG capsule 0.4 mg PO DAILY esomeprazole magnesium 20 MG capsule 20 mg PO DAILY cod liver oil 1 EACH capsule 1 cap PO BID turmeric 400 MG capsule 450 mg PO DAILY mirtazapine 30 mg tablet 30 mg PO QHS oxybutynin chloride 10 mg tablet extended release 24hr 10 mg PO DAILY meloxicam 15 mg tablet 15 mg PO DAILY atorvastatin 80 mg tablet See Rx Instructions .ROUTE .COMPLEX Qty: 90 4RF Dose Instruction: TAKE 1 TABLET BY MOUTH AT BEDTIME Rx Instructions: TAKE 1 TABLET BY MOUTH AT BEDTIME isosorbide mononitrate 120 mg tablet extended release 24 hr 120 mg PO DAILY Qty: 90 3RF apixaban 5 mg tablet 5 mg PO BID Qty: 180 3RF Hold Instructions: Order Changed Primary Care Provider: Cornell Gunter Referrals: Cornell Gunter MD [Primary Care Provider] - 1 Day Activity Restrictions/Additional Instructions: Lumbar spine with degenerative disc disease. Take gabapentin as prescribed. Call your doctor tomorrow for outpatient reevaluation and possible physical therapy. Disposition Disposition: Home, Self Care Discharge Date/Time: 11/19/22 15:03
[2022-11-19 14:24] VITALS: RESP 20
[2022-11-19 14:44] VITALS: RESP 20
== END 2022-11-19 15:03 | disposition home or self-care (01) ==
PROVIDERS: Emergency Provider Emergency Medicine; PCP Family Medicine; Visit Provider Emergency Medicine
DX: M47.816 Spondylosis without myelopathy or radiculopathy, lumbar region (principal); I48.0 Paroxysmal atrial fibrillation; Z68.42 Body mass index [BMI] 45.0-49.9, adult; E66.01 Morbid (severe) obesity due to excess calories; M54.42 Lumbago with sciatica, left side; E78.00 Pure hypercholesterolemia, unspecified; I25.10 Atherosclerotic heart disease of native coronary artery without angina pectoris; I10 Essential (primary) hypertension; G47.33 Obstructive sleep apnea (adult) (pediatric); Z79.01 Long term (current) use of anticoagulants; Z79.899 Other long term (current) drug therapy; Z87.891 Personal history of nicotine dependence
CPT/HCPCS: 72100; 99283

== ENCOUNTER 2022-12-20 19:43 | Emergency (ER) | payer MEDICARE, OTHER, SELFPAY ==
[2022-12-20 19:44] VITALS: BP 171/113; PULSE 108; RESP 20; TEMP 37.3; O2SAT 100
[2022-12-20 19:45] VITALS: BMI 48.7
[2022-12-20 20:21] LABS: Absolute Lymphocyte Count 0.29 X10^3/uL (0.83-4.51); Absolute Neutrophil Count 11.4 X10^3/uL (2.0-7.7); Basophil# 0.05 X10^3/uL; Basophil% 0.4 % (0-1); Eosinophil# 0.11 X10^3/uL; Eosinophils% 0.9 % (0-5); Hematocrit 44.8 % (40-54); Lymphocyte # 0.29 X10^3/ul (0.83-4.51); Lymphocyte % 2.4 % (19-41); Mean Corp Hgb Conc 31.3 g/dL (32-36); Mean Corpuscular Hgb 29.6 pg (27.0-32.0); Mean Corpuscular Volume 94.7 fL (80-94); Mean Platelet Vol. 9.9 fl (6.2-12.0); Monocyte# 0.11 X10^3/uL; Monocyte% 0.9 % (0-10); Mucous, Urine 0 SEEN /hpf (<or=2+); NRBC Flagged by Analyzer 0 % (0-5); Neutrophil # 11.38 X10^3/uL (2.7-7.7); Neutrophil % 95.1 % (47-70); POSITIVE DIFFERENTIAL YES; Platelet Count 271 K/mm3 (150-450); RBC Distribution Width CV 14.5 % (11.6-14.6); RBC Distribution Width SD 50.4 fl (35.1-43.9); Red Blood Count 4.73 M/mm3 (4.6-6.2)
[2022-12-20 20:23] LABS: Color, Urine Yellow (Yellow); Glucose, Dipstick Normal (Normal); Ketone-Dipstick Negative (Negative); Leukocyte Esterase-Dipstick 500 /ul (Negative); Nitrite-Dipstick Negative (Negative); Occult Blood-Urine 10 /ul (Negative); Protein-Dipstick 30 mg/dl (Negative); Urine Bilirubin Dipstick Negative (Negative); Urine Clarity Clear (Clear); Urine Urobilinogen Normal (Normal)
[2022-12-20 20:27] LABS: Differential Indicated SCAN CRITERIA MET
[2022-12-20 20:34] LABS: International Normalized Ratio 1.9; Prothrombin Time (Protime)PT. 22.3 SECONDS (11.7-14.9)
[2022-12-20 20:35] LABS: Anion Gap 14 (5-15); BUN 20 mg/dL (7-18); Bacteria 1+ /hpf (None Seen); Calcium,Total 9.2 mg/dL (8.5-10.1); Chloride 103 mmol/L (98-107); EST Glomerular Filtration Rate 27 mL/min (>60); Est Glom Filt Rate - Afr Amer 33 mL/min (>60); Estimated Creatinine Clearance 27.49 ml/min; Glucose 154 mg/dL (74-106); Potassium 3.8 mmol/L (3.5-5.1); Red Blood Cells-Urine 0-5 SEEN /hpf (0-5); Sodium Level 137 mmol/L (136-145); Squamous Epithelial Cells - UA 0-5 SEEN /hpf (0-5); White Blood Cells 25-50 SEEN /hpf (0-5)
[2022-12-20 21:07] LABS: Differential Comment SCANNED
--- NOTE | 2022-12-20 21:14 | EX.ED.GUMALE ---
HPI History of Present Illness Chief Complaint: Complaint Narrative Narrative: 9-year-old male with fever, chills, concern for UTI. He states this is how he gets when he has UTIs. He states he gets shaky. He denies checking himself for a temperature but he states that he does feel cold. He states he was vomiting earlier but feels fine now. He does not have any dysuria. He states typically he be asymptomatic for UTI. He does not know any antibiotics he has been on before in the past. States he does not have flank pain or abdominal pain. PFSH [facility] [place] Medical History Abrasion TEODORO (acute kidney injury) Ambulates with cane Anxiety and depression Arthritis Atherosclerotic heart disease of [place] coronary artery without angina pectoris Atrial fibrillation Cardiology follow-up encounter Cellulitis Chronic UTI CPAP (continuous positive airway pressure) dependence Depression Easy bruising Essential hypertension Excessive bleeding Former smoker GERD (gastroesophageal reflux disease) Gout History of echocardiogram History of edema History of left heart catheterization (LHC) (~07/29/19) History of stress test Indwelling urethral catheter present assisted (current) use of anticoagulants Morbid obesity Obstructive sleep apnea Paroxysmal atrial fibrillation Pure hypercholesterolemia Septic joint of right knee joint Severe sepsis Shortness of breath on exertion Viral syndrome Wears glasses Home Medications citalopram 20 mg tablet 20 mg PO DAILY MOOD 09/21/14 [History Last Taken 02/03/20] multivitamin 1 tab PO DAILY SUPPLEMENT 09/21/14 [History Last Taken 02/03/20] esomeprazole magnesium 20 mg capsule,delayed release 20 mg PO DAILY 05/18/19 [History Last Taken 11/09/21] tamsulosin 0.4 mg capsule 0.4 mg PO DAILY 05/18/19 [History Last Taken 02/03/20] cod liver oil 1 cap PO BID arthritis 02/03/20 [History Last Taken 02/03/20] turmeric 400 mg capsule 450 mg PO DAILY arthritis 02/03/20 [History Last Taken 02/03/20] hydroxychloroquine 200 mg tablet 200 mg PO BID arthritis 04/25/21 [History Last Taken Unknown] Handicap Placard #1 ea 07/05/21 [Rx Last Taken Unknown] ranolazine 500 mg tablet,extended release,12 hr (Ranexa) 500 mg PO BID #60 tabs 05/23/22 [Rx Last Taken Unknown] mirtazapine 30 mg tablet 30 mg PO QHS 10/01/22 [History Last Taken Unknown] oxybutynin chloride 10 mg tablet,extended release 24 hr 10 mg PO DAILY 10/01/22 [History Last Taken Unknown] meloxicam 15 mg tablet 15 mg PO DAILY 11/19/22 [History Last Taken Unknown] atorvastatin 80 mg tablet See Rx Instructions .Route .COMPLEX #90 tabs 11/21/22 [Rx Last Taken Unknown] warfarin 4 mg tablet 4 mg PO .COMPLEX #30 tabs 12/06/22 [Rx Last Taken Unknown] ciprofloxacin HCl 500 mg tablet (Cipro) 500 mg PO BID 7 days #14 tabs 12/20/22 [Rx Last Taken Unknown] isosorbide mononitrate 120 mg tablet,extended release 24 hr 60 mg PO BID 12/20/22 [History Last Taken Unknown] Allergy/AdvReac Type Severity Reaction Status Date / Time bee venom protein (honey bee) Allergy Hives Verified 12/20/22 19:45 amlodipine AdvReac Severe severe Verified 12/20/22 19:45 swelling in hands and feet spider venom AdvReac Other Verified 12/20/22 19:45 Family History Father Heart disease Diabetes CAD (coronary artery disease) History of coronary artery bypass surgery Cardiac pacemaker in situ Other Pure hypercholesterolemia Surgical History History of cystoscopy History of knee surgery History of total right knee replacement Social History household members: spouse Smoking Status: Former smoker how long ago did patient quit smokin alcohol intake: never substance use type: does not use caffeine: Yes Type: tea Number of servings: 2 ROS ROS ED Constitutional Constitutional ED: Reports chills, fever(s) and subjective; Denies sweats Eyes Eyes: Denies blurry vision or change in vision ENT ENT ED: Denies ear pain or sore throat Cardiovascular Cardiovascular: Denies chest pain, palpitations or racing heartbeat Respiratory/Chest Respiratory/Chest: Denies cough, dyspnea or sputum Gastrointestinal Gastrointestinal: Reports nausea and vomiting; Denies abdominal pain, constipation or diarrhea Genitourinary Genitourinary ED: Denies dysuria, hematuria or urinary frequency Musculoskeletal Musculoskeletal: Denies arthralgias, myalgias or neck pain Integumentary Denies abscess, Abrasions or rash Neurologic Neurologic: Denies headache(s), paresthesias or weakness Psychiatric Psychiatric: Denies anxiety, depression, suicidal ideation or suicidal thoughts Endocrine Endocrinology: Denies polydipsia or polyuria EXAM Physical Exam Const Vital Signs: 12/20/22 19:44 Temperature 99.1 F Temperature Source Oral Pulse Rate 108 H Respiratory Rate 20 H Blood Pressure 171/113 H Blood Pressure Mean 132 Pulse Ox 100 Oxygen Delivery Method Room Air Positive well nourished General Appearance ED: NAD; Negative for pallor HEENT Reports moist mucous membranes normocephalic and atraumatic Eyes PERRL Resp normal respiratory effort Cardio regular rhythm Rate: tachycardic GI non-tender and non-distended Back/Spine no CVA tenderness Neuro oriented x3 and CN's II-XII intact bilaterally Sensorium / Orientation: alert Motor Exam: strength 5/5 throughout Psych mental status grossly normal Mood & Affect: Negative for depressed or anxious Skin General Skin Exam: Negative for jaundice or pallor MDM MDM MDM Narrative Medical decision making narrative: Presenting with concern for UTI. He states he had chills at home but did not check his cell for a temperature. He does note a fever here. Heart rates like it slightly tachycardic. Patient states he been vomiting at home. I tried to give him some Zofran but he declines. He states he feels fine. CBC was obtained to assess white blood cell count, hemoglobin, platelets. PT/INR because the patient is on Coumadin will check his INR level. P will be obtained to assess renal function and electrolytes. Urinalysis to assess for UTI. Differential includes UTI, pyelonephritis, dehydration. Patient given a liter of IV fluids. Urinalysis obtained and suspicious for infection. Given patient's history I did look at his last culture which was positive for Pseudomonas but sensitive to Cipro. Patient states he typically can go home on oral antibiotics. CBC shows slight leukocytosis at 12.0. Hemoglobin stable 14. INR slightly subtherapeutic at 1.9. Urinalysis again consistent with infection. Creatinine is elevated today at 2.5 with a baseline at 1.7 so I did give him a liter of IV fluids. Patient given refill for Cipro and Zofran for home. Urine culture was sent. Return precautions discussed. Impression: 1. UTI 2. Nausea/vomiting 3. Dehydration Lab Data Attestation: I reviewed the patient's lab results. Labs: Laboratory Results - last 24 hr 12/20/22 20:00 WBC 12.0 H RBC 4.73 Hgb 14.0 Hct 44.8 MCV 94.7 H MCH 29.6 MCHC 31.3 L RDW Std Deviation 50.4 H RDW Coeff of Abdiel 14.5 Plt Count 271 MPV 9.9 Immature Gran % (Auto) 0.300 Neut % (Auto) 95.1 H Lymph % (Auto) 2.4 L [place] % (Auto) 0.9 Eos % (Auto) 0.9 Baso % (Auto) 0.4 Absolute Neuts (auto) 11.4 H Absolute Lymphs (auto) 0.29 L Nucleated RBC % 0 Differential Comment SCANNED PT 22.3 H INR 1.9 Sodium 137 Potassium 3.8 Chloride 103 Carbon Dioxide 20.0 L Anion Gap 14 BUN 20 H Creatinine 2.50 H Estim Creat Clear Calc 27.49 Est GFR (MDRD) Af Amer 33 L Est GFR (MDRD) Non-Af 27 L BUN/Creatinine Ratio 8.0 L Glucose 154 H Calcium 9.2 Urine Color Yellow Urine Clarity Clear Urine pH 6.0 Ur Specific [place] 1.010 Urine Protein 30 H Urine Glucose (UA) Normal Urine Ketones Negative Urine Occult Blood 10 H Urine Nitrite Negative Urine Bilirubin Negative Urine Urobilinogen Normal Ur Leukocyte Esterase 500 H Urine RBC 0-5 SEEN Urine WBC 25-50 SEEN Ur Squamous Epith Cells 0-5 SEEN Urine Bacteria 1+ Urine Mucus 0 SEEN Discharge Plan Triage Chief Complaint: Complaint ED Provider: Arley Sarmiento Dx/Rx/DC Orders Instructions: ED Urinary Tract Infections in Men Prescriptions: New ciprofloxacin HCl [Cipro] 500 mg tablet 500 mg PO BID 7 Days Qty: 14 0RF No Action hydroxychloroquine 200 mg tablet 200 mg PO BID (DME) Handicap Placard See Rx Instructions .Route .MEDSUPPLY Qty: 1 0RF Rx Instructions: Good from 07/05/2021-07/05/2026; ranolazine [Ranexa] 500 mg tablet extended release 12 hr 500 mg PO BID Qty: 60 12RF multivitamin 1 TABLET tablet 1 tab PO DAILY citalopram 20 MG tablet 20 mg PO DAILY tamsulosin 0.4 MG capsule 0.4 mg PO DAILY esomeprazole magnesium 20 MG capsule 20 mg PO DAILY cod liver oil 1 EACH capsule 1 cap PO BID turmeric 400 MG capsule 450 mg PO DAILY mirtazapine 30 mg tablet 30 mg PO QHS oxybutynin chloride 10 mg tablet extended release 24hr 10 mg PO DAILY meloxicam 15 mg tablet 15 mg PO DAILY isosorbide mononitrate 120 mg tablet extended release 24 hr 60 mg PO BID atorvastatin 80 mg tablet See Rx Instructions .ROUTE .COMPLEX Qty: 90 4RF Dose Instruction: TAKE 1 TABLET BY MOUTH AT BEDTIME Rx Instructions: TAKE 1 TABLET BY MOUTH AT BEDTIME warfarin 4 mg tablet 4 mg PO .COMPLEX Qty: 30 11RF Protocol: Dose Management Condition: Sunday Dose/Route: 4 mg Instruction: 1 x 4 mg tablet Condition: Sunday Dose/Route: 4 mg Instruction: 1 x 4 mg tablet Condition: Sunday Dose/Route: 8 mg Instruction: 2 x 4 mg tablets Condition: Sunday Dose/Route: 8 mg Instruction: 2 x 4 mg tablets Condition: Dose/Route: 4 mg Instruction: 1 x 4 mg tablet Condition: Sunday Dose/Route: 4 mg Instruction: 1 x 4 mg tablet Condition: Sunday Dose/Route: 4 mg Instruction: 1 x 4 mg tablet Protocol Text: Adjustment Start Date: Sunday12/19/22 INR Value: 1.8 INR Date: 12/19/22 Recheck Date: 12/26/22 Rx Instructions: 4 mg orally daily or as instructed for dose changes; Primary Care Provider: Cornell Gunter Referrals: Cornell Gunter MD [Primary Care Provider] - Disposition Disposition: Home, Self Care
[2022-12-20] MEDS: Ciprofloxacin 500 MG Tablet PO (21:16)
[2022-12-20 22:11] VITALS: BP 132/60; PULSE 89; RESP 15; O2SAT 94
== END 2022-12-20 22:15 | disposition home or self-care (01) ==
PROVIDERS: Emergency Provider Student in an Organized Health Care Education/Training Program; PCP Family Medicine; Visit Provider Student in an Organized Health Care Education/Training Program
DX: N39.0 Urinary tract infection, site not specified (principal); I48.0 Paroxysmal atrial fibrillation; I25.10 Atherosclerotic heart disease of native coronary artery without angina pectoris; I10 Essential (primary) hypertension; E86.0 Dehydration; R11.2 Nausea with vomiting, unspecified; E78.00 Pure hypercholesterolemia, unspecified; Z79.01 Long term (current) use of anticoagulants; Z79.899 Other long term (current) drug therapy; Z87.891 Personal history of nicotine dependence
CPT/HCPCS: 80048; 81001; 85025; 85610; 87077; 87086; 87088; 87186; 99282

== ENCOUNTER 2022-12-24 13:06 | Observation (INO) | payer MEDICARE, OTHER, SELFPAY ==
[2022-12-24] VITALS (8 sets, daily range): BP systolic 107–152; BP diastolic 46–73; PULSE 54–102; RESP 16–22; TEMP 36.3–37.1; O2SAT 88–96; BMI 49.5; BMI 48.6
--- NOTE | 2022-12-24 13:27 | ED.VIS.BACK ---
HPI History of Present Illness Chief Complaint: Back Informant: patient Onset/Context/Timing Onset: Days (5) Context: Gradual Onset Timing: Continuous Quality: Sharp Location: Lumbar Worsened by: improves with Nothing Relieved by: Nothing Associated Symptoms Associated Symptoms: Dysuria; Negative for Numbness, Tingling, Radiation to Right Leg, Radiation to Left Leg, Unable to Ambulate, Unable to Transfer, Urinary Retention or Urinary Incontinence Narrative Narrative: Patient presents with urinary tract infection that has been getting worse over the last 5 days. Patient was seen here 5 days ago and was diagnosed with a urinary tract infection at that time. Patient was given a dose of Rocephin here and was given a prescription for Cipro. Patient states he has been taking this but it does not seem to be helping. Patient states he is on Coumadin and he thinks it may be interfering with the Cipro. Patient admits to some pain in his mid back. Patient describes it as sharp. Patient states nothing makes it worse and nothing makes it better. Patient admits to subjective chills but denies any fevers. Patient admits to some nausea and vomiting. 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 Morbid obesity Obstructive sleep apnea Paroxysmal atrial fibrillation Pure hypercholesterolemia Septic joint of right knee joint Severe sepsis Shortness of breath on exertion Viral syndrome Wears glasses Home Medications citalopram 20 mg tablet 20 mg PO DAILY MOOD 09/21/14 [History Last Taken 12/24/22] multivitamin 1 tab PO DAILY SUPPLEMENT 09/21/14 [History Last Taken 12/24/22] esomeprazole magnesium 20 mg capsule,delayed release 20 mg PO DAILY 05/18/19 [History Last Taken 12/24/22] tamsulosin 0.4 mg capsule 0.4 mg PO DAILY 05/18/19 [History Last Taken 12/24/22] cod liver oil 1 cap PO BID arthritis 02/03/20 [History Last Taken 12/24/22] turmeric 400 mg capsule 450 mg PO DAILY arthritis 02/03/20 [History Last Taken 12/24/22] hydroxychloroquine 200 mg tablet 200 mg PO BID arthritis 04/25/21 [History Last Taken 12/24/22] Handicap Placard #1 ea 07/05/21 [Rx Last Taken Unknown] ranolazine 500 mg tablet,extended release,12 hr (Ranexa) 500 mg PO BID #60 tabs 05/23/22 [Rx Last Taken 12/24/22] mirtazapine 30 mg tablet 30 mg PO QHS 10/01/22 [History Last Taken 12/24/22] meloxicam 15 mg tablet 15 mg PO DAILY 11/19/22 [History Last Taken Unknown] atorvastatin 80 mg tablet See Rx Instructions .Route .COMPLEX #90 tabs 11/21/22 [Rx Last Taken 12/23/22] warfarin 4 mg tablet 4 mg PO .COMPLEX #30 tabs 12/06/22 [Rx Last Taken 12/24/22] ciprofloxacin HCl 500 mg tablet (Cipro) 500 mg PO BID 7 days #14 tabs 12/20/22 [Rx Last Taken 12/24/22] isosorbide mononitrate 120 mg tablet,extended release 24 hr 120 mg PO DAILY 12/20/22 [History Last Taken 12/24/22] Allergy/AdvReac Type Severity Reaction Status Date / Time bee venom protein (honey bee) Allergy Hives Verified 12/24/22 13:10 amlodipine AdvReac Severe severe Verified 12/24/22 13:10 swelling in hands and feet spider venom AdvReac Other Verified 12/24/22 13:10 Family History Father Heart disease Diabetes CAD (coronary artery disease) History of coronary artery bypass surgery Cardiac pacemaker in situ Other Pure hypercholesterolemia Surgical History History of cystoscopy History of knee surgery History of total right knee replacement Social History household members: spouse Smoking Status: Former smoker how long ago did patient quit smokin alcohol intake: never substance use type: does not use caffeine: Yes Type: tea Number of servings: 2 ROS ROS ED Constitutional Constitutional ED: Reports chills and subjective; Denies fever(s) Eyes Eyes: Denies blurry vision or change in vision ENT ENT ED: Denies rhinorrhea or sore throat Cardiovascular Cardiovascular: Denies chest pain or palpitations Respiratory/Chest Respiratory/Chest: Denies cough or dyspnea Gastrointestinal Gastrointestinal: Reports nausea and vomiting Genitourinary Genitourinary ED: Reports dysuria; Denies hematuria Musculoskeletal Musculoskeletal: Reports back pain; Denies neck pain Integumentary Denies abscess or rash Neurologic Neurologic: Denies headache(s) or weakness Allergic/Immunologic Allergic/Immunologic ED: Denies mouth swelling or urticaria EXAM Physical Exam Const Vital Signs: 12/24/22 13:07 12/24/22 13:10 12/24/22 15:10 Temperature 97.4 F L 98.7 F 98.8 F Temperature Source Oral Oral Temporal Pulse Rate 95 102 H 72 Respiratory Rate 16 16 16 Blood Pressure 152/64 H 127/73 H 107/57 L Blood Pressure Mean 93 91 73 Pulse Ox 88 93 93 Oxygen Delivery Method Room Air Nasal Cannula Room Air Oxygen Flow Rate (L/min) 2 12/24/22 15:31 Temperature Temperature Source Pulse Rate 72 Respiratory Rate 18 Blood Pressure 119/48 L Blood Pressure Mean 71 Pulse Ox 94 Oxygen Delivery Method Nasal Cannula Oxygen Flow Rate (L/min) 2 Positive well nourished, well developed and obese General Appearance ED: well developed and NAD Nutritional Appearance: obese HEENT Reports moist mucous membranes Neck supple and no JVD Resp normal respiratory effort and clear to auscultation bilaterally Cardio regular rate and regular rhythm GI soft to palpation, non-tender and non-distended Back/Spine normal to inspection and no thoracic nor lumbar tenderness General Back: Negative for CVA tenderness Neuro oriented x3 and no sensory deficits noted Sensorium / Orientation: alert Motor Exam: strength 5/5 throughout Psych mental status grossly normal MDM MDM MDM Narrative Medical decision making narrative: Differential diagnosis includes pyelonephritis, ureteral calculus, gastroenteritis, bowel obstruction, perforation, dehydration, and acute kidney injury. CBC will be obtained to assess for leukocytosis and anemia. Basic metabolic profile will be obtained to assess for renal function and electrolyte abnormality. Urinalysis will be obtained to assess for urinary tract infection. PT with INR and PTT will be obtained to assess for coagulopathy. Lactate will be obtained to assess for sepsis. Blood cultures will be obtained to assess for sepsis. CT scan of the abdomen pelvis will be obtained to assess for bowel obstruction and ureteral calculus. Lab Data Attestation: I reviewed the patient's lab results. Lab results narrative: CBC was reviewed. White blood cell count was normal at 10.4. Hemoglobin was 12.5 and hematocrit was 38.3. Platelets were normal. Basic metabolic profile was reviewed. BUN was 21 and creatinine was 2.17. This was improved from previous result. PT with INR and PTT. Pro time was 23.2 and INR is 2.0. PTT was normal at 34.8. Lactate was reviewed and was elevated at 3.6. Urinalysis was reviewed. Leukocyte esterase was 100 with 0-5 white blood cells. Blood was 250 with 5-10 red blood cells. Labs: Laboratory Results - last 24 hr 12/24/22 12/24/22 13:20 14:07 WBC 10.4 RBC 4.23 L Hgb 12.5 L Hct 38.3 L MCV 90.5 MCH 29.6 MCHC 32.6 RDW Std Deviation 48.4 H RDW Coeff of Abdiel 14.6 Plt Count 190 MPV 10.4 Immature Gran % (Auto) 0.500 Neut % (Auto) 90.0 H Lymph % (Auto) 3.6 L [place] % (Auto) 5.2 Eos % (Auto) 0.4 Baso % (Auto) 0.3 Absolute Neuts (auto) 9.3 H Absolute Lymphs (auto) 0.37 L Nucleated RBC % 0 PT 23.2 H INR 2.0 APTT 34.8 Sodium 138 Potassium 3.9 Chloride 105 Carbon Dioxide 24.0 Anion Gap 9 BUN 21 H Creatinine 2.17 H Estim Creat Clear Calc 31.68 Est GFR (MDRD) Af Amer 39 L Est GFR (MDRD) Non-Af 32 L BUN/Creatinine Ratio 9.7 L Glucose 105 Lactic Acid 3.6 H* Calcium 8.7 Urine Color Yellow Urine Clarity Sl. Cloudy Urine pH 6.0 Ur Specific [place] 1.015 Urine Protein 30 H Urine Glucose (UA) Normal Urine Ketones Negative Urine Occult Blood 250 H Urine Nitrite Negative Urine Bilirubin Negative Urine Urobilinogen 1 H Ur Leukocyte Esterase 100 H Urine RBC 5-10 SEEN Urine WBC 0-5 SEEN Ur Squamous Epith Cells 0-5 SEEN Urine Bacteria 0 SEEN Urine Mucus 0 SEEN Radiography Diagnostic Testing: Clinical Impression(s) from Imaging Studies Abdomen/Pelvis CT 12/24/22 13:35 IMPRESSION: (NOT LISTED IN ORDER OF SIGNIFICANCE) There are no acute findings. There are atherosclerotic calcifications of visualized coronary arteries. Other findings as above. Electronically Signed: Yazan Thompson MD at 14:16 EDT Reading Location ID and State: [facility] / [place] , Service support , CT scan of the abdomen and pelvis was obtained. There is no acute findings noted. There are some atherosclerotic calcifications of the coronary arteries. This was interpreted by the radiologist was also independently reviewed by myself. Treatment and Re-Evaluation Narrative: Patient was given IV fluids. Patient was given a dose of Zosyn. Patient's prior urine culture was reviewed and grew out E. coli which was sensitive to everything including Cipro. Patient was feeling somewhat better after evaluation. Patient was advised of his findings. There is a lactic acidosis, case was discussed with the hospitalist. She will admit the patient for observation. Patient understood and was agreeable with the plan. All questions were answered. Discharge Plan Triage Chief Complaint: Back ED Provider: Gideon Wilson Dx/Rx/DC Orders Clinical Impression: Low back pain, Lactic acidosis Prescriptions: No Action hydroxychloroquine 200 mg tablet 200 mg PO BID (DME) Handicap Placard See Rx Instructions .Route .MEDSUPPLY Qty: 1 0RF Rx Instructions: Good from 07/05/2021-07/05/2026; ranolazine [Ranexa] 500 mg tablet extended release 12 hr 500 mg PO BID Qty: 60 12RF multivitamin 1 TABLET tablet 1 tab PO DAILY citalopram 20 MG tablet 20 mg PO DAILY tamsulosin 0.4 MG capsule 0.4 mg PO DAILY esomeprazole magnesium 20 MG capsule 20 mg PO DAILY cod liver oil 1 EACH capsule 1 cap PO BID turmeric 400 MG capsule 450 mg PO DAILY mirtazapine 30 mg tablet 30 mg PO QHS meloxicam 15 mg tablet 15 mg PO DAILY isosorbide mononitrate 120 mg tablet extended release 24 hr 120 mg PO DAILY ciprofloxacin HCl [Cipro] 500 mg tablet 500 mg PO BID 7 Days Qty: 14 0RF atorvastatin 80 mg tablet See Rx Instructions .ROUTE .COMPLEX Qty: 90 4RF Dose Instruction: TAKE 1 TABLET BY MOUTH AT BEDTIME Rx Instructions: TAKE 1 TABLET BY MOUTH AT BEDTIME warfarin 4 mg tablet 4 mg PO .COMPLEX Qty: 30 11RF Protocol: Dose Management Condition: Sunday Dose/Route: 4 mg Instruction: 1 x 4 mg tablet Condition: Sunday Dose/Route: 4 mg Instruction: 1 x 4 mg tablet Condition: Sunday Dose/Route: 8 mg Instruction: 2 x 4 mg tablets Condition: Sunday Dose/Route: 8 mg Instruction: 2 x 4 mg tablets Condition: Dose/Route: 4 mg Instruction: 1 x 4 mg tablet Condition: Sunday Dose/Route: 4 mg Instruction: 1 x 4 mg tablet Condition: Sunday Dose/Route: 4 mg Instruction: 1 x 4 mg tablet Protocol Text: Adjustment Start Date: Sunday12/19/22 INR Value: 1.8 INR Date: 12/19/22 Recheck Date: 12/26/22 Rx Instructions: 4 mg orally daily or as instructed for dose changes; Primary Care Provider: Cornell Gunter Referrals: Cornell Gunter MD [Primary Care Provider] - Disposition Disposition: Acute Care Hospital [facility]
--- NOTE | 2022-12-24 13:35 | CT_ITS ---
STUDY: CT Abdomen And Pelvis W/O Contrast Injection 12/24/2022 2:13 PM REASON FOR EXAM: Male, 72 years old. Abdominal pain Abdominal pain Individualized dose optimization techniques were used for this CT. COMPARISON: 10-27-21. TECHNIQUE: CT Abdomen And Pelvis W/O Contrast Injection FINDINGS: There are atherosclerotic calcifications of visualized coronary arteries. The visualized portions of the heart are within normal limits. Normal liver. Normal gallbladder and extrahepatic biliary system. Normal spleen. There is diffuse atrophy of the pancreas. Normal bilateral adrenal glands. There are hypodensities in the right kidney. These are consistent for cysts. No follow up required. There are hypodensities in the left kidney. These are consistent for cysts. No follow up required. There are bilateral renal calculi. There is no evidence for an obstruction. There is no hydronephrosis. Normal visualized stomach. Normal small intestine. Stool throughout the colon. The appendix is visualized and appears normal. There are calcifications of the abdominal aorta. This is consistent for atherosclerotic disease. There is NO abdominal aortic aneurysm. Vascular workup can be obtained based on clinical correlation. Normal inferior vena cava. Subcentimeter mesenteric lymph nodes. Normal urinary bladder. There are prostatic calcifications. Normal abdominal wall. There are diffuse degenerative changes of the visualized lumbar spine. CT/Abdomen/Pelvis without Cont IMPRESSION: (NOT LISTED IN ORDER OF SIGNIFICANCE) There are no acute findings. There are atherosclerotic calcifications of visualized coronary arteries. Other findings as above. Electronically Signed: Yazan Thompson MD at 14:16 EDT ,
[2022-12-24] MEDS: Morphine 4 MG/ML Syringe IV (13:41)
[2022-12-24] MEDS: 0.9% Normal Saline (1000mL) 1,000 ML 1000 ML IV (13:41)
[2022-12-24 13:50] LABS: Absolute Lymphocyte Count 0.37 X10^3/uL (0.83-4.51); Absolute Neutrophil Count 9.3 X10^3/uL (2.0-7.7); Basophil# 0.03 X10^3/uL; Basophil% 0.3 % (0-1); Eosinophil# 0.04 X10^3/uL; Eosinophils% 0.4 % (0-5); Hematocrit 38.3 % (40-54); Hemoglobin 12.5 g/dL (13.0-16.5); Lymphocyte # 0.37 X10^3/ul (0.83-4.51); Lymphocyte % 3.6 % (19-41); Mean Corp Hgb Conc 32.6 g/dL (32-36); Mean Corpuscular Hgb 29.6 pg (27.0-32.0); Mean Corpuscular Volume 90.5 fL (80-94); Mean Platelet Vol. 10.4 fl (6.2-12.0); Monocyte# 0.54 X10^3/uL; Monocyte% 5.2 % (0-10); NRBC Flagged by Analyzer 0 % (0-5); Neutrophil # 9.32 X10^3/uL (2.7-7.7); POSITIVE DIFFERENTIAL YES; Platelet Count 190 K/mm3 (150-450); RBC Distribution Width CV 14.6 % (11.6-14.6); RBC Distribution Width SD 48.4 fl (35.1-43.9); Red Blood Count 4.23 M/mm3 (4.6-6.2); White Blood Count 10.4 K/mm3 (4.4-11.0)
[2022-12-24 13:51] LABS: Differential Indicated SCAN CRITERIA MET
[2022-12-24 13:59] LABS: Partial Thromboplast Time 34.8 Seconds (24.1-36.2); Prothrombin Time (Protime)PT. 23.2 SECONDS (11.7-14.9)
[2022-12-24 14:04] LABS: Anion Gap 9 (5-15); BUN 21 mg/dL (7-18); BUN/Creat Ratio 9.7 RATIO (10-20); Calcium,Total 8.7 mg/dL (8.5-10.1); Chloride 105 mmol/L (98-107); Creatinine, Serum 2.17 mg/dL (0.70-1.30); EST Glomerular Filtration Rate 32 mL/min (>60); Est Glom Filt Rate - Afr Amer 39 mL/min (>60); Estimated Creatinine Clearance 31.68 ml/min; Glucose 105 mg/dL (74-106); Potassium 3.9 mmol/L (3.5-5.1); Sodium Level 138 mmol/L (136-145)
[2022-12-24 14:11] LABS: Bacteria 0 SEEN /hpf (None Seen); Mucous, Urine 0 SEEN /hpf (<or=2+)
[2022-12-24 14:13] LABS: Lactic Acid 3.6 mmol/L (0.4-1.9)
[2022-12-24 14:14] LABS: Color, Urine Yellow (Yellow); Glucose, Dipstick Normal (Normal); Ketone-Dipstick Negative (Negative); Leukocyte Esterase-Dipstick 100 /ul (Negative); Nitrite-Dipstick Negative (Negative); Occult Blood-Urine 250 /ul (Negative); Protein-Dipstick 30 mg/dl (Negative); Specific Gravity, Urine 1.015 (1.002-1.030); Urine Bilirubin Dipstick Negative (Negative); Urine Clarity Sl. Cloudy (Clear); Urine Urobilinogen 1 mg/dl (Normal)
[2022-12-24 14:20] LABS: Squamous Epithelial Cells - UA 0-5 SEEN /hpf (0-5); White Blood Cells 0-5 SEEN /hpf (0-5)
[2022-12-24 14:21] LABS: Red Blood Cells-Urine 5-10 SEEN /hpf (0-5)
[2022-12-24] MEDS: Piperacil/Tazobactam 4.5 GM in 0.9% Normal Saline (100mL MB+) 100 ML IV (15:44)
--- NOTE | 2022-12-24 16:29 | HP.PCM.HOS_ITS ---
HPI - General General Date of Admission: 12/24/22 Date of Service: 12/24/22 Chief Complaint: Fatigue, malaise, recent UTI, N/V, flank discomfort. HPI Narrative The patient is a 72 y/o M w/ PMHx: Morbid obesity, LILI on CPAP, HTN, HLD, Anxiety and Depression, GERD, BPH, CKD stage III unclear subtype, Gout, CAD s/ chronic RCA occlusion, Chronic polyarthritis, recent ED evaluation 12/20/2022 with nausea, emesis, chills and subjective fever with concern for UTI with history of frequent urinary tract infections with diagnosis at that time as well as acute kidney injury with patient declined at that time of IV fluids but amenability to discharge on oral ciprofloxacin who now re-presents to the [facility] ED on 12/24/22 with history of mild flank discomfort bilaterally, sharp, not necessarily worsened by movement with poor oral intake with persistent nausea and emesis as well as chills and fevers although these have subsided since starting the antibiotic therapies but generalized weakness and fatigue prompting eventual ED evaluation. Patient does report that he thinks he is dehydrated and this may be contributing to how he feels currently including his back discomfort. In the ED patient notes his flank discomfort is since improved and currently rates it 1 out of 10 in severity. He notes his nausea has also improved and is asking that he have a broad diet and necessarily just clears. Work-up in the ED included T97.4, heart rate 95, BP 152/64, respiratory rate 16, initially 88% on room air however he was sleeping and does have sleep apnea history but improved to 93% on 2 L nasal cannula, CBC with WC 10.4, hemoglobin 12.5, MCV 90.5, platelet 190 with left shift and lymphopenia, coags with INR 2.0, BMP with BUN/creatinine 21/2.17, lactic acid 3.6, urinalysis improved appearance from previous, blood culture x2 pending per ED, CT abdomen and pelvis with no acute intra-abdominal findings. In the ED patient administered Zosyn, 1 L normal saline and morphine 4 mg IV x1. [facility] Medical History (Updated 12/24/22 @ 16:[address] Cynthia Brunson MD) Ambulates with cane Anxiety and depression Arthritis Atherosclerotic heart disease of [place] coronary artery without angina pectoris Atrial fibrillation Chronic UTI CKD (chronic kidney disease), stage III Depression Essential hypertension Former smoker GERD (gastroesophageal reflux disease) Gout History of left heart catheterization (LHC) (~07/29/19) nursing home (current) use of anticoagulants Morbid obesity LILI on CPAP Paroxysmal atrial fibrillation Polyarthritis Pure hypercholesterolemia Viral syndrome Wears glasses Home Medications citalopram 20 mg tablet 20 mg PO DAILY MOOD 09/21/14 [History Last Taken 12/24/22] multivitamin 1 tab PO DAILY SUPPLEMENT 09/21/14 [History Last Taken 12/24/22] esomeprazole magnesium 20 mg capsule,delayed release 20 mg PO DAILY 05/18/19 [History Last Taken 12/24/22] tamsulosin 0.4 mg capsule 0.4 mg PO DAILY 05/18/19 [History Last Taken 12/24/22] cod liver oil 1 cap PO BID arthritis 02/03/20 [History Last Taken 12/24/22] turmeric 400 mg capsule 450 mg PO DAILY arthritis 02/03/20 [History Last Taken 12/24/22] hydroxychloroquine 200 mg tablet 200 mg PO BID arthritis 04/25/21 [History Last Taken 12/24/22] Handicap Placard #1 ea 07/05/21 [Rx Last Taken Unknown] ranolazine 500 mg tablet,extended release,12 hr (Ranexa) 500 mg PO BID #60 tabs 05/23/22 [Rx Last Taken 12/24/22] mirtazapine 30 mg tablet 30 mg PO QHS 10/01/22 [History Last Taken 12/24/22] meloxicam 15 mg tablet 15 mg PO DAILY 11/19/22 [History Last Taken Unknown] atorvastatin 80 mg tablet See Rx Instructions .Route .COMPLEX #90 tabs 11/21/22 [Rx Last Taken 12/23/22] warfarin 4 mg tablet 4 mg PO .COMPLEX #30 tabs 12/06/22 [Rx Last Taken 12/24/22] ciprofloxacin HCl 500 mg tablet (Cipro) 500 mg PO BID 7 days #14 tabs 12/20/22 [Rx Last Taken 12/24/22] isosorbide mononitrate 120 mg tablet,extended release 24 hr 120 mg PO DAILY 12/20/22 [History Last Taken 12/24/22] Allergy/AdvReac Type Severity Reaction Status Date / Time bee venom protein (honey bee) Allergy Hives Verified 12/24/22 13:10 amlodipine AdvReac Severe severe Verified 12/24/22 13:10 swelling in hands and feet spider venom AdvReac Other Verified 12/24/22 13:10 Family History (Updated 12/24/22 @ 16:[address] Cynthia Brunson MD) Father Heart disease Diabetes CAD (coronary artery disease) History of coronary artery bypass surgery Cardiac pacemaker in situ Pure hypercholesterolemia other (Patient denies any marked maternal family history including HD, DM, CA.) Surgical History (Updated 12/24/22 @ 16:[address] Cynthia Brunson MD) H/O umbilical hernia repair History of cystoscopy History of inguinal hernia repair, bilateral History of knee surgery History of total right knee replacement Social History household members: spouse Smoking Status: Former smoker how long ago did patient quit smokin alcohol intake: never substance use type: does not use caffeine: Yes Type: tea Number of servings: 2 ROS ROS Narrative Admission Review of Systems: CONSTITUTIONAL: No weight loss, fever (resolved), chills (resolved), + weakness or fatigue. HEENT: Eyes: No visual loss, blurred vision, double vision or yellow sclerae. Ears, Nose, Throat: No hearing loss, sneezing, congestion, runny nose or sore throat. SKIN: No rash or itching, lesions, wounds. CARDIOVASCULAR: No chest pain, chest pressure or chest discomfort, palpitations, edema, orthopnea, syncopal events. RESPIRATORY: No shortness of breath, cough or sputum, wheezing, hemoptysis. GASTROINTESTINAL: + anorexia, nausea, vomiting. No diarrhea, abdominal pain, melena, BRBPR. GENITOURINARY: + Recent UTI Dx, still mild frequency but improved, no dysuria, urgency or retention. NEUROLOGICAL: No headache, dizziness, syncope, paralysis, ataxia, numbness or tingling in the extremities, focal weakness, change in bowel or bladder control, seizure. MUSCULOSKELETAL: + muscle, back pain, joint pain or stiffness. HEMATOLOGIC: + anemia, + Easy bleeding or bruising. LYMPHATICS: No enlarged nodes. No history of splenectomy. PSYCHIATRIC: + history of depression or anxiety. ENDOCRINOLOGIC: No reports of sweating, cold or heat intolerance. No polyuria or polydipsia. ALLERGIES: + history of hives. Vital Signs Vital Signs Vital Signs: 12/24/22 13:07 12/24/22 13:10 12/24/22 15:10 Temperature 97.4 F L 98.7 F 98.8 F Temperature Source Oral Oral Temporal Pulse Rate 95 102 H 72 Respiratory Rate 16 16 16 Blood Pressure 152/64 H 127/73 H 107/57 L Blood Pressure Mean 93 91 73 Pulse Ox 88 93 93 Oxygen Delivery Method Room Air Nasal Cannula Room Air Oxygen Flow Rate (L/min) 2 12/24/22 15:31 12/24/22 16:00 Temperature 98.1 F Temperature Source Oral Pulse Rate 72 69 Respiratory Rate 18 22 H Blood Pressure 119/48 L 122/51 H Blood Pressure Mean 71 74 Pulse Ox 94 94 Oxygen Delivery Method Nasal Cannula Nasal Cannula Oxygen Flow Rate (L/min) 2 2 Weight Weight: 335 lb 8.697 oz Body Mass Index (BMI) 49.5 Physical Exam Narrative Physical Examination: General: Awake, alert, oriented x 3 and cooperative, seated upright in the ED bed in no apparent distress, notes flank discomfort improved, 03/14. Skin: Normal color, normal turgor, no icterus, no cyanosis. HEENT: AT/NC, EOMI, PERRLA, dry MM, no carotid bruits, difficult to assess JVD given significantly thickened neck. Lungs: Distant, diminished, greater bases, proper effort, no rales, ronchi or wheezing. Heart: Regular rate and rhythm; no gallop, rub audible. Abdomen: Soft, morbidly obese, no tenderness to palpation or marked suprapubic discomfort, distant BS, difficult to assess distention and HSM given habitus. Extremities: No cyanosis, no clubbing, BL LE chronic lymphedema, stable per patient. Neurological: Patient awake, alert, oriented as noted, cognitive function intact; pupils equally reactive to light and accommodation, cranial nerves II- XII grossly normal, moving all 4 extremities, no focal deficits, strength moderately globally decreased secondary to acute complaints compounded by underlying comorbidities. Psychiatric: Affect appears flat, fatigued, no acute evidence of depressive or anxiety feelings but does have underlying history. Results Lab / Micro Data 12/24/22 13:20 12/24/22 13:20 Labs: Laboratory Results - last 24 hr 12/24/22 13:20: WBC 10.4, RBC 4.23 L, Hgb 12.5 L, Hct 38.3 L, MCV 90.5, MCH 29.6, MCHC 32.6, RDW Std Deviation 48.4 H, RDW Coeff of Abdiel 14.6, Plt Count 190, MPV 10.4, Immature Gran % (Auto) 0.500, Neut % (Auto) 90.0 H, Lymph % (Auto) 3.6 L, Mathews % (Auto) 5.2, Eos % (Auto) 0.4, Baso % (Auto) 0.3, Absolute Neuts (auto) 9.3 H, Absolute Lymphs (auto) 0.37 L, Nucleated RBC % 0, PT 23.2 H, INR 2.0, APTT 34.8, Sodium 138, Potassium 3.9, Chloride 105, Carbon Dioxide 24.0, Anion Gap 9, BUN 21 H, Creatinine 2.17 H, Estim Creat Clear Calc 31.68, Est GFR (MDRD) Af Amer 39 L, Est GFR (MDRD) Non-Af 32 L, BUN/Creatinine Ratio 9.7 L, Glucose 105, Lactic Acid 3.6 H*, Calcium 8.7 12/24/22 14:07: Urine Color Yellow, Urine Clarity Sl. Cloudy, Urine pH 6.0, Ur Specific Viola 1.015, Urine Protein 30 H, Urine Glucose (UA) Normal, Urine Ketones Negative, Urine Occult Blood 250 H, Urine Nitrite Negative, Urine Bilirubin Negative, Urine Urobilinogen 1 H, Ur Leukocyte Esterase 100 H, Urine RBC 5-10 SEEN, Urine WBC 0-5 SEEN, Ur Squamous Epith Cells 0-5 SEEN, Urine Bacteria 0 SEEN, Urine Mucus 0 SEEN Radiology Impression Abdomen/Pelvis CT 12/24/22 13:35 IMPRESSION: (NOT LISTED IN ORDER OF SIGNIFICANCE) There are no acute findings. There are atherosclerotic calcifications of visualized coronary arteries. Other findings as above. Electronically Signed: Yazan Thompson MD at 14:16 EDT , Assessment & Plan Assessment/Plan (1) Lactic acidosis: PLAN: Plan The patient is a 72 y/o M w/ PMHx: Morbid obesity, LILI on CPAP, HTN, HLD, Anxiety and Depression, GERD, BPH, CKD stage III unclear subtype, Gout, CAD s/ chronic RCA occlusion, Chronic polyarthritis, recent ED evaluation 12/20/2022 with nausea, emesis, chills and subjective fever with concern for UTI with history of frequent urinary tract infections with diagnosis at that time as well as acute kidney injury with patient declined at that time of IV fluids but amenability to discharge on oral ciprofloxacin who now re-presents to the [facility] ED on 12/24/22 with history of mild flank discomfort bilaterally, sharp, not n ecessarily worsened by movement with poor oral intake with persistent nausea and emesis as well as chills and fevers although these have subsided since starting the antibiotic therapies but generalized weakness and fatigue prompting eventual ED evaluation. #1. Recent Acute E. Coli Urinary Tract Infection w/ nausea/emesis with lactic acidosis, suspected secondary to poor intake/dehydration with flank pain concurrently with adult failure to thrive: Patient in the ED seems to be improving however given lactic acidosis and concern for GI losses, Will admit to [facility], recent urine culture with quigley sensitivity, will continue judicious IVFs with repeat lactic acid in a.m., monitor I/Os, will maintain on IV Rocephin, maintain on fall precautions, PT/OT/case management consulted for discharge planning. #2. New appearing normocytic anemia: Admission hemoglobin 12.5, MCV 90.5, baseline previously 13-14, most recent prior 12/20/2022 hemoglobin 14.0, will repeat hemoglobin and if does appear to have dropped we will obtain iron panel, ferritin, stool guaiac to be cautious. #3. Acute Renal Insufficiency on Chronic Kidney Disease Stage III, unclear subtype: Admission BUN/Cr 21/2.17, baseline renal function primarily 1.7-1.9, recently 12/20/2022 creatinine elevated up to 2.50 thus improving, repeat BMP in AM. #4. PAF: We will continue patient home Coumadin with INR trending, per current list not on any rate or rhythm agent. #5. CAD: Patient with chronic RCA occlusion, will continue Coumadin with trending, and therapy, Ranexa, not on beta-kiki/ARB of note. #6. Morbid Obesity: Weight loss and lifestyle changes encouraged. #7. Hypertension: Continue home regimen including isosorbide, PRN hydralazine. #8. Hyperlipidemia: We will continue patient on statin therapy. #9. Anxiety and depression: We will continue patient on citalopram and mirtazapine home regimen. #10. Chronic Polyarthritis: We will continue patient home hydroxychloroquine regimen, encourage continued outpatient follow-up with rheumatology as previously arranged. #11. Former tobacco use: Encourage continued tobacco cessation. #12. GERD: We will continue patient on PPI. #13. BPH: We will continue patient on Flomax regimen. #14. LILI: CPAP nightly. #15. DVT prophylaxis: We will continue patient home Coumadin with INR trending. #16. CODE status: Patient VENITA is his and living will is currently in place. Discussed CODE status at length including difference between FULL code, DNR-CCA and DNR-CC status. Following discussions about the differences in these status, requested Full Code status. Advanced Care Planning Face to Face Time: 16 minutes. Charges/Coding Visit Charges Inpatient E&M: 44028 Init Hosp L2 Procedures Hospitalists Procedures: 41292 Advncd Care Plan 30 Min
[2022-12-24] MEDS: 0.9% Normal Saline (1000mL) 1,000 ML 100 ML IV (17:45)
[2022-12-24 17:47] LABS: Reflex Lactate? Y
[2022-12-24] MEDS: Hydroxychloroquine 200 MG Tablet PO (18:24)
[2022-12-24 18:39] LABS: Lactic Acid 4.1 mmol/L (0.4-1.9)
[2022-12-24] MEDS: 0.9% Normal Saline (500mL Bag) 500 ML 999 ML IV (18:49)
[2022-12-24] MEDS: Ceftriaxone 1 GM/50 ML BAG IV (21:52)
[2022-12-24] MEDS: Ranolazine 500 MG Tablet PO (21:53)
[2022-12-24] MEDS: Atorvastatin Calcium 80 MG Tablet PO (21:54)
[2022-12-24] MEDS: Mirtazapine 30 MG Tablet PO (21:58)
[2022-12-25 02:30] VITALS: BP 159/65; PULSE 56; RESP 18; TEMP 37; O2SAT 98
[2022-12-25 06:00] VITALS: BMI 48.8
[2022-12-25 06:37] LABS: Absolute Lymphocyte Count 1.16 X10^3/uL (0.83-4.51); Absolute Neutrophil Count 7.4 X10^3/uL (2.0-7.7); Basophil# 0.03 X10^3/uL; Basophil% 0.3 % (0-1); Eosinophil# 0.19 X10^3/uL; Eosinophils% 1.8 % (0-5); Hematocrit 37.2 % (40-54); Hemoglobin 11.7 g/dL (13.0-16.5); Lymphocyte # 1.16 X10^3/ul (0.83-4.51); Mean Corp Hgb Conc 31.5 g/dL (32-36); Mean Corpuscular Hgb 29.3 pg (27.0-32.0); Mean Corpuscular Volume 93.2 fL (80-94); Mean Platelet Vol. 10.3 fl (6.2-12.0); Monocyte# 1.67 X10^3/uL; Monocyte% 15.9 % (0-10); NRBC Flagged by Analyzer 0 % (0-5); Neutrophil # 7.43 X10^3/uL (2.7-7.7); Neutrophil % 70.5 % (47-70); POSITIVE DIFFERENTIAL YES; Platelet Count 200 K/mm3 (150-450); RBC Distribution Width CV 14.7 % (11.6-14.6); RBC Distribution Width SD 50.8 fl (35.1-43.9); Red Blood Count 3.99 M/mm3 (4.6-6.2); White Blood Count 10.5 K/mm3 (4.4-11.0)
[2022-12-25 06:38] LABS: Prothrombin Time (Protime)PT. 22.8 SECONDS (11.7-14.9)
[2022-12-25 06:46] LABS: Lactic Acid 1.1 mmol/L (0.4-1.9)
[2022-12-25 06:50] LABS: ALB/GLOB Ratio 0.5 RATIO (0.9-2.4); AST(SGOT) 20 U/L (15-37); Alanine Aminotransfer ALT/SGPT 16 U/L (16-61); Albumin, Serum 2.4 g/dL (3.2-5.0); Alkaline Phosphatase 109 U/L (45-117); Anion Gap 2 (5-15); BUN 22 mg/dL (7-18); BUN/Creat Ratio 10.8 RATIO (10-20); Calcium,Total 8.7 mg/dL (8.5-10.1); Chloride 110 mmol/L (98-107); Creatinine, Serum 2.03 mg/dL (0.70-1.30); EST Glomerular Filtration Rate 35 mL/min (>60); Est Glom Filt Rate - Afr Amer 42 mL/min (>60); Estimated Creatinine Clearance 33.86 ml/min; Globulin 4.7 g/dL (2.2-4.2); Glucose 112 mg/dL (74-106); Potassium 4.3 mmol/L (3.5-5.1); Protein, Total 7.1 g/dL (6.4-8.2); Sodium Level 137 mmol/L (136-145)
[2022-12-25 07:08] LABS: Differential Indicated SCAN CRITERIA MET
[2022-12-25] MEDS: Citalopram 20 MG Tablet PO (09:10)
[2022-12-25] MEDS: Ranolazine 500 MG Tablet PO (09:10)
[2022-12-25] MEDS: Pantoprazole Sodium 20 MG Tablet PO (09:10)
[2022-12-25] MEDS: Tamsulosin HCl 0.4 MG Capsule PO (09:10)
[2022-12-25] MEDS: Hydroxychloroquine 200 MG Tablet PO (09:10)
[2022-12-25] MEDS: Acetaminophen 325 MG Tablet 650 MG PO (09:14)
[2022-12-25 09:18] VITALS: BP 145/71; PULSE 60; RESP 18; TEMP 36.8; O2SAT 100
[2022-12-25 09:21] VITALS: O2SAT 100
--- NOTE | 2022-12-25 11:41 | PCM.DC.SUM ---
Providers Date of Admission: 12/24/22 Date of Discharge: 12/25/22 Primary Care Physician: Dr. Cornell Gunter MD Reason For Visit: RECENT UTI, FLANK DISCOMFORT Diagnosis Discharge Diagnosis (1) Lactic acidosis: Status: Acute Code(s): E87.20 - Acidosis, unspecified Plan #Lactic acidosis secondary to dehydration?resolved #Recent UTI still on antibiotics #CKD stage III unclear subtype #Paroxysmal atrial fibrillation #CAD #Morbid obesity #Hypertension #LILI #BPH #GERD Medications at Discharge Home Medications citalopram 20 mg tablet 20 mg PO DAILY MOOD 09/21/14 multivitamin 1 tab PO DAILY SUPPLEMENT 09/21/14 esomeprazole magnesium 20 mg capsule,delayed release 20 mg PO DAILY 05/18/19 tamsulosin 0.4 mg capsule 0.4 mg PO DAILY 05/18/19 cod liver oil 1 cap PO BID arthritis 02/03/20 turmeric 400 mg capsule 450 mg PO DAILY arthritis 02/03/20 hydroxychloroquine 200 mg tablet 200 mg PO BID arthritis 04/25/21 Handicap Placard #1 ea 07/05/21 ranolazine 500 mg tablet,extended release,12 hr (Ranexa) 500 mg PO BID #60 tabs 05/23/22 mirtazapine 30 mg tablet 30 mg PO QHS 10/01/22 atorvastatin 80 mg tablet See Rx Instructions .Route .COMPLEX #90 tabs 11/21/22 warfarin 4 mg tablet 4 mg PO .COMPLEX #30 tabs 12/06/22 ciprofloxacin HCl 500 mg tablet (Cipro) 500 mg PO BID 7 days #14 tabs 12/20/22 isosorbide mononitrate 120 mg tablet,extended release 24 hr 120 mg PO DAILY 12/20/22 Hospital Course Summary of Care Provided Minutes Spent on Discharge: 35 Hospital Course: The patient is a 72 y/o M w/ PMHx: Morbid obesity, LILI on CPAP, HTN, HLD, Anxiety and Depression, GERD, BPH, CKD stage III unclear subtype, Gout, CAD s/ chronic RCA occlusion, Chronic polyarthritis, recent ED evaluation 12/20/2022 with nausea, emesis, chills and subjective fever with concern for UTI with history of frequent urinary tract infections with diagnosis at that time as well as acute kidney injury with patient declined at that time of IV fluids but amenability to discharge on oral ciprofloxacin who now re-presents to the [facility] ED on 12/24/22 with nausea, fatigue, flank discomfort. Patient had lactic acid of 4.1 and slight bump in creatinine and appeared to be dehydrated. CT of abdomen/pelvis unremarkable. Patient improved significantly with IV fluids and UA did not show any bacteria or any concern for superimposed UTI. Patient doing well, still has a little bit of back pain but does not seem to be flank tenderness and his symptoms across his whole back sometimes one-sided sometimes the other, suspect musculoskeletal, no longer feeling that fatigued and cold feeling and feeling much better overall. Discharge instructions as follows: DISCHARGE INSTRUCTIONS PLEASE READ *Please take this with you to your next doctors appointment* -Would recommend completing your ciprofloxacin course through 12/27 -Recommend stopping your meloxicam as this can worsen your kidney function -Did have a slightly low blood count (hemoglobin) recommend repeating a CBC to check your blood count in 3 to 5 days through your primary care physician office, if this is still low it could be worked up further on outpatient basis. If you have not had a colonoscopy or if you are due for a repeat would recommend pursuing this -Please call your primary care provider's office upon discharge to schedule a hospital follow up within 1 week. -For any concerning signs or symptoms please call 911 or proceed to the nearest emergency department Physical Exam Narrative General: Alert, oriented, no apparent distress HEENT: Atraumatic, normocephalic Eyes: Anicteric, normal conjunctiva, extraocular movements grossly intact Neck: Supple Respiratory: Clear to auscultation bilaterally, normal respiratory effort Cardiovascular: Regular rate and rhythm GI: Soft, nontender, nondistended, no pain on palpation of flanks Extremities: No edema Musculoskeletal: Moving all extremities Neuro: No overt focal neurological deficits Skin: No rashes appreciated Psych: Cooperative Weight / BMI Weight Weight: 149.64 kg Body Mass Index (BMI) 48.8 ABG / Lab / Microbiology Data 12/25/22 06:05 12/25/22 06:05 Laboratory: Laboratory Results - last 24 hr 12/24/22 13:20: WBC 10.4, RBC 4.23 L, Hgb 12.5 L, Hct 38.3 L, MCV 90.5, MCH 29.6, MCHC 32.6, RDW Std Deviation 48.4 H, RDW Coeff of Abdiel 14.6, Plt Count 190, MPV 10.4, Immature Gran % (Auto) 0.500, Neut % (Auto) 90.0 H, Lymph % (Auto) 3.6 L, Antelope % (Auto) 5.2, Eos % (Auto) 0.4, Baso % (Auto) 0.3, Absolute Neuts (auto) 9.3 H, Absolute Lymphs (auto) 0.37 L, Nucleated RBC % 0, PT 23.2 H, INR 2.0, APTT 34.8, Sodium 138, Potassium 3.9, Chloride 105, Carbon Dioxide 24.0, Anion Gap 9, BUN 21 H, Creatinine 2.17 H, Estim Creat Clear Calc 31.68, Est GFR (MDRD) Af Amer 39 L, Est GFR (MDRD) Non-Af 32 L, BUN/Creatinine Ratio 9.7 L, Glucose 105, Lactic Acid 3.6 H*, Calcium 8.7 12/24/22 14:07: Urine Color Yellow, Urine Clarity Sl. Cloudy, Urine pH 6.0, Ur Specific Cross 1.015, Urine Protein 30 H, Urine Glucose (UA) Normal, Urine Ketones Negative, Urine Occult Blood 250 H, Urine Nitrite Negative, Urine Bilirubin Negative, Urine Urobilinogen 1 H, Ur Leukocyte Esterase 100 H, Urine RBC 5-10 SEEN, Urine WBC 0-5 SEEN, Ur Squamous Epith Cells 0-5 SEEN, Urine Bacteria 0 SEEN, Urine Mucus 0 SEEN 12/24/22 17:47: Lactic Acid 4.1 H* 12/25/22 06:05: WBC 10.5, RBC 3.99 L, Hgb 11.7 L, Hct 37.2 L, MCV 93.2, MCH 29.3, MCHC 31.5 L, RDW Std Deviation 50.8 H, RDW Coeff of Abdiel 14.7 H, Plt Count 200, MPV 10.3, Immature Gran % (Auto) 0.500, Neut % (Auto) 70.5 H, Lymph % (Auto) 11.0 L, Antelope % (Auto) 15.9 H, Eos % (Auto) 1.8, Baso % (Auto) 0.3, Absolute Neuts (auto) 7.4, Absolute Lymphs (auto) 1.16, Nucleated RBC % 0, Differential Comment COMMENT, PT 22.8 H, INR 2.0, Sodium 137, Potassium 4.3, Chloride 110 H, Carbon Dioxide 25.0, Anion Gap 2 L, BUN 22 H, Creatinine 2.03 H, Estim Creat Clear Calc 33.86, Est GFR (MDRD) Af Amer 42 L, Est GFR (MDRD) Non-Af 35 L, BUN/Creatinine Ratio 10.8, Glucose 112 H, Lactic Acid 1.1, Calcium 8.7, Total Bilirubin 0.60, AST 20, ALT 16, Alkaline Phosphatase 109, Total Protein 7.1, Albumin 2.4 L, Globulin 4.7 H, Albumin/Globulin Ratio 0.5 L Radiography Diagnostic Testing: Radiology Impression Abdomen/Pelvis CT 12/24/22 13:35 IMPRESSION: (NOT LISTED IN ORDER OF SIGNIFICANCE) There are no acute findings. There are atherosclerotic calcifications of visualized coronary arteries. Other findings as above. Electronically Signed: Yazan Thompson MD at 14:16 EDT Reading Location ID and State: [facility] / [place] , Service support , D/C Instructions Discharge Diet: Low fat / Low cholesterol and - (DASH diet) Discharge Activity: Return to Normal Activity Meaningful Use Info Meaningful Use Diagnoses (Choose all that apply): None applicable Discharge Plan Admission Admit Date/Time: 12/24/22 16:29 Primary Reason for Your Visit: Fatigue, nausea, dehydration Attending Provider: Divya Colindres Primary Care Provider: Cornell Gunter Consulting Providers: Cynthia Brunson Instructions Patient Instructions: Urinary Tract Infections in Men Additional Instructions / Restrictions: DISCHARGE INSTRUCTIONS PLEASE READ *Please take this with you to your next doctors appointment* -Would recommend continuing your ciprofloxacin course through 12/27 -Recommend stopping your meloxicam as this can worsen your kidney function -Did have a slightly low blood count (hemoglobin) recommend repeating a CBC to check your blood count in 3 to 5 days through your primary care physician office, if this is still low it could be worked up further on outpatient basis. If you have not had a colonoscopy or if you are due for a repeat would recommend pursuing this -Please call your primary care provider's office upon discharge to schedule a hospital follow up within 1 week. -For any concerning signs or symptoms please call 911 or proceed to the nearest emergency department Discharge Orders/Prescriptions Prescriptions: Continued hydroxychloroquine 200 mg tablet 200 mg PO BID (DME) Handicap Placard See Rx Instructions .Route .MEDSUPPLY Qty: 1 0RF Rx Instructions: Good from 07/05/2021-07/05/2026; ranolazine [Ranexa] 500 mg tablet extended release 12 hr 500 mg PO BID Qty: 60 12RF multivitamin 1 TABLET tablet 1 tab PO DAILY citalopram 20 MG tablet 20 mg PO DAILY tamsulosin 0.4 MG capsule 0.4 mg PO DAILY esomeprazole magnesium 20 MG capsule 20 mg PO DAILY cod liver oil 1 EACH capsule 1 cap PO BID turmeric 400 MG capsule 450 mg PO DAILY mirtazapine 30 mg tablet 30 mg PO QHS isosorbide mononitrate 120 mg tablet extended release 24 hr 120 mg PO DAILY ciprofloxacin HCl [Cipro] 500 mg tablet 500 mg PO BID 7 Days Qty: 14 0RF atorvastatin 80 mg tablet See Rx Instructions .ROUTE .COMPLEX Qty: 90 4RF Dose Instruction: TAKE 1 TABLET BY MOUTH AT BEDTIME Rx Instructions: TAKE 1 TABLET BY MOUTH AT BEDTIME warfarin 4 mg tablet 4 mg PO .COMPLEX Qty: 30 11RF Protocol: Dose Management Condition: Sunday Dose/Route: 4 mg Instruction: 1 x 4 mg tablet Condition: Sunday Dose/Route: 4 mg Instruction: 1 x 4 mg tablet Condition: Sunday Dose/Route: 8 mg Instruction: 2 x 4 mg tablets Condition: Sunday Dose/Route: 8 mg Instruction: 2 x 4 mg tablets Condition: Dose/Route: 4 mg Instruction: 1 x 4 mg tablet Condition: Sunday Dose/Route: 4 mg Instruction: 1 x 4 mg tablet Condition: Sunday Dose/Route: 4 mg Instruction: 1 x 4 mg tablet Protocol Text: Adjustment Start Date: Sunday12/19/22 INR Value: 1.8 INR Date: 12/19/22 Recheck Date: 12/26/22 Rx Instructions: 4 mg orally daily or as instructed for dose changes; Discontinued meloxicam 15 mg tablet 15 mg PO DAILY Referrals / Follow Up: Cornell Gunter MD [Primary Care Provider] - Within 1 Week Disposition Disposition (needs filled in before D/C Order can be placed): Home, Self Care Charges/Coding Visit Charges Inpatient E&M: 34210 Disch Hosp >30min
--- NOTE | 2022-12-25 12:02 | CASEMGMT ---
CHUY PENALOZA NOTE: Pt being discharged home. PT/OT notes reviewed. No additional therapy recommended. RN CM to room. Pt sitting up in chair. @ bedside. Introduced self and role. Pt and deny having any discharge planning needs or concerns. Ilia ALBERTON CHUY CM
[2022-12-25 12:55] VITALS: BP 142/62; PULSE 63; RESP 18; TEMP 36.9; O2SAT 18
== END 2022-12-25 13:12 | disposition home or self-care (01) ==
LOC: ED 16:07 → MS3 16:42
PROVIDERS: Admitting Provider Family Medicine; Emergency Provider Emergency Medicine; PCP Family Medicine; Referring Provider Family Medicine; Visit Provider Internal Medicine
DX: E86.0 Dehydration (principal); I48.0 Paroxysmal atrial fibrillation; E66.01 Morbid (severe) obesity due to excess calories; Z68.42 Body mass index [BMI] 45.0-49.9, adult; N18.30 Chronic kidney disease, stage 3 unspecified; E78.00 Pure hypercholesterolemia, unspecified; M54.50 Low back pain, unspecified; F41.9 Anxiety disorder, unspecified; I25.10 Atherosclerotic heart disease of native coronary artery without angina pectoris; I12.9 Hypertensive chronic kidney disease with stage 1 through stage 4 chronic kidney disease, or unspecified chronic kidney disease; Z87.891 Personal history of nicotine dependence; E87.20 Acidosis, unspecified; Z79.899 Other long term (current) drug therapy; Z79.01 Long term (current) use of anticoagulants; K21.9 Gastro-esophageal reflux disease without esophagitis; G47.33 Obstructive sleep apnea (adult) (pediatric); N39.0 Urinary tract infection, site not specified; F32.A Depression, unspecified
CPT/HCPCS: 36415; 74176; 80048; 80053; 81001; 83605; 85025; 85610; 85730; 87040; 94668; 96361; 96365; 96367; 96375; 97161; 97166; 99221; 99252; 99285; J7030; J7040; A4216; G0378; G0463

== ENCOUNTER 2023-01-02 07:27 | Outpatient (RCR) | payer MEDICARE, OTHER, SELFPAY ==
[2022-12-12 09:46] LABS: International Normalized Ratio 1.2; Prothrombin Time (Protime)PT. 14.8 SECONDS (11.7-14.9)
[2022-12-19 08:03] LABS: International Normalized Ratio 1.8; Prothrombin Time (Protime)PT. 20.9 SECONDS (11.7-14.9)
[2022-12-26 12:27] LABS: International Normalized Ratio 1.8; Prothrombin Time (Protime)PT. 21.3 SECONDS (11.7-14.9)
[2023-01-02 08:05] LABS: International Normalized Ratio 1.9; Prothrombin Time (Protime)PT. 21.6 SECONDS (11.7-14.9)
== END 2023-01-02 18:00 | disposition home or self-care (01) ==
LOC: LAB 07:27
PROVIDERS: PCP Family Medicine; Referring Provider Internal Medicine Cardiovascular Disease; Visit Provider Internal Medicine Cardiovascular Disease
DX: I48.0 Paroxysmal atrial fibrillation (principal); Z79.01 Long term (current) use of anticoagulants
CPT/HCPCS: 36415; 85610

== ENCOUNTER 2023-01-22 10:53 | Outpatient (RCR) | payer MEDICARE, OTHER, SELFPAY ==
[2023-01-09 08:42] LABS: Anion Gap 4 (5-15); BUN 21 mg/dL (7-18); BUN/Creat Ratio 11.1 RATIO (10-20); Chloride 107 mmol/L (98-107); Creatinine, Serum 1.89 mg/dL (0.70-1.30); EST Glomerular Filtration Rate 38 mL/min (>60); Est Glom Filt Rate - Afr Amer 46 mL/min (>60); Glucose 100 mg/dL (74-106); Potassium 3.9 mmol/L (3.5-5.1); Sodium Level 138 mmol/L (136-145)
[2023-01-09 08:47] LABS: International Normalized Ratio 1.7; Prothrombin Time (Protime)PT. 19.6 SECONDS (11.7-14.9)
[2023-01-22 11:27] LABS: International Normalized Ratio 2.1; Prothrombin Time (Protime)PT. 23.8 SECONDS (11.7-14.9)
== END 2023-02-01 18:00 | disposition home or self-care (01) ==
LOC: LAB 10:53
PROVIDERS: PCP Family Medicine; Referring Provider Internal Medicine Cardiovascular Disease; Visit Provider Internal Medicine Cardiovascular Disease
DX: Z79.01 Long term (current) use of anticoagulants (principal); I48.0 Paroxysmal atrial fibrillation
CPT/HCPCS: 36415; 80048; 85610

== ENCOUNTER → 2023-01-22 | Outpatient (CLI) | payer MEDICARE, OTHER, SELFPAY ==
--- NOTE | 2023-01-22 15:36 | RAD_ITS ---
STUDY: X-RAY - ABDOMEN/PELVIS REASON FOR EXAM: Male, 72 years old. FLANK PAIN TECHNIQUE: Frontal 4 views COMPARISON: None. FINDINGS: Normal visualized lung bases. There is an unremarkable bowel gas pattern. Colonic fecal retention. There is no demonstrated free abdominal air. The visualized liver, spleen and kidneys are grossly normal in size and morphology. Normal soft tissue structures. Degenerative vertebral changes. RAD/Abdomen Single View IMPRESSION: Mild colonic fecal retention. Electronically Signed: Scott Rod DO at 20:28 EST ,
== END | disposition home or self-care (01) ==
LOC: MTRAD 15:35
PROVIDERS: PCP Family Medicine; Referring Provider Family Medicine; Visit Provider Family Medicine
DX: R10.9 Unspecified abdominal pain (principal)
CPT/HCPCS: 74018

== ENCOUNTER 2023-02-12 08:28 | Outpatient (RCR) | payer MEDICARE, OTHER, SELFPAY ==
[2023-02-05 11:21] LABS: Absolute Lymphocyte Count 1.45 X10^3/uL (0.83-4.51); Basophil# 0.04 X10^3/uL; Basophil% 0.5 % (0-1); Eosinophil# 0.22 X10^3/uL; Eosinophils% 2.5 % (0-5); Hematocrit 37.6 % (40-54); Hemoglobin 11.4 g/dL (13.0-16.5); Lymphocyte # 1.45 X10^3/ul (0.83-4.51); Lymphocyte % 16.5 % (19-41); Mean Corp Hgb Conc 30.3 g/dL (32-36); Mean Corpuscular Hgb 28.4 pg (27.0-32.0); Mean Corpuscular Volume 93.5 fL (80-94); Monocyte# 1.06 X10^3/uL; NRBC Flagged by Analyzer 0 % (0-5); Platelet Count 398 K/mm3 (150-450); RBC Distribution Width CV 15.1 % (11.6-14.6); RBC Distribution Width SD 51.8 fl (35.1-43.9); Red Blood Count 4.02 M/mm3 (4.6-6.2); White Blood Count 8.8 K/mm3 (4.4-11.0)
[2023-02-05 11:30] LABS: International Normalized Ratio 1.2
[2023-02-05 12:02] LABS: ALB/GLOB Ratio 0.5 RATIO (0.9-2.4); AST(SGOT) 17 U/L (15-37); Alanine Aminotransfer ALT/SGPT 16 U/L (16-61); Albumin, Serum 2.5 g/dL (3.2-5.0); Alkaline Phosphatase 106 U/L (45-117); Anion Gap 9 (5-15); BUN 22 mg/dL (7-18); BUN/Creat Ratio 10.8 RATIO (10-20); Calcium,Total 8.9 mg/dL (8.5-10.1); Chloride 106 mmol/L (98-107); Creatinine, Serum 2.04 mg/dL (0.70-1.30); EST Glomerular Filtration Rate 35 mL/min (>60); Est Glom Filt Rate - Afr Amer 42 mL/min (>60); Globulin 5.4 g/dL (2.2-4.2); Glucose 100 mg/dL (74-106); Potassium 3.8 mmol/L (3.5-5.1); Protein, Total 7.9 g/dL (6.4-8.2); Sodium Level 141 mmol/L (136-145)
[2023-02-12 09:22] LABS: International Normalized Ratio 1.6; Prothrombin Time (Protime)PT. 18.8 SECONDS (11.7-14.9)
== END 2023-03-04 18:00 | disposition home or self-care (01) ==
LOC: LAB 08:28
PROVIDERS: PCP Family Medicine; Referring Provider Internal Medicine Cardiovascular Disease; Visit Provider Internal Medicine Cardiovascular Disease
DX: Z79.01 Long term (current) use of anticoagulants (principal); I48.0 Paroxysmal atrial fibrillation
CPT/HCPCS: 36415; 80053; 85025; 85610

== ENCOUNTER 2023-02-17 11:30 | Inpatient (IN) | payer MEDICARE, OTHER, SELFPAY ==
[2023-02-17 11:32] VITALS: BP 130/54; PULSE 51; RESP 18; TEMP 36.9; O2SAT 97; BMI 48.2
--- NOTE | 2023-02-17 12:03 | ED.VIS.BACK ---
HPI <HUNG Russo - Last Filed: 02/17/23 17:51> History of Present Illness Chief Complaint: Back Narrative Narrative: Patient presenting today with right lower back pain that he has had intermittently since September but acutely worsened this morning when he tried to get out of bed. He reports that the pain is in the exact same location, but it is much worse than usual. He reports that his pain is improved with rest and worsened with movement. He reports that he can feel muscle spasms in his right lower back and occasionally does have pain in his left thigh. He has seen his PCP for this, they have prescribed him muscle relaxers and pain medication which he uses sparingly. He has seen a chiropractor but that only seem to make things worse. He has a history of urinary incontinence, this is not new or worsened. He denies any fever, chills, bowel incontinence, paresthesias, leg weakness, saddle paresthesia, abdominal pain, and urinary symptoms. 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 Morbid obesity LILI on CPAP Paroxysmal atrial fibrillation Polyarthritis Pure hypercholesterolemia Viral syndrome Wears glasses Home Medications citalopram 20 mg tablet 20 mg PO DAILY MOOD 09/21/14 [History Last Taken 02/16/23] multivitamin 1 tab PO DAILY SUPPLEMENT 09/21/14 [History Last Taken 02/16/23] esomeprazole magnesium 20 mg capsule,delayed release 20 mg PO DAILY 05/18/19 [History Last Taken 02/16/23] tamsulosin 0.4 mg capsule 0.4 mg PO DAILY 05/18/19 [History Last Taken 02/16/23] cod liver oil 1 cap PO DAILY arthritis 02/03/20 [History Last Taken 02/16/23] turmeric 400 mg capsule 450 mg PO DAILY arthritis 02/03/20 [History Last Taken 02/16/23] hydroxychloroquine 200 mg tablet 200 mg PO BID arthritis 04/25/21 [History Last Taken 02/16/23] Handicap Placard #1 ea 07/05/21 [Rx Last Taken Unknown] mirtazapine 30 mg tablet 30 mg PO QHS 10/01/22 [History Last Taken 02/16/23] atorvastatin 80 mg tablet See Rx Instructions .Route .COMPLEX #90 tabs 11/21/22 [Rx Last Taken 02/16/23] warfarin 4 mg tablet 4 mg PO .COMPLEX #60 tabs 01/23/23 [Rx Last Taken 02/16/23] allopurinol 300 mg tablet 300 mg PO DAILY 02/17/23 [History Last Taken 02/16/23] aspirin 81 mg tablet,delayed release (Adult Aspirin Regimen) 81 mg PO DAILY 02/17/23 [History Last Taken 02/16/23] cyclobenzaprine 10 mg tablet 10 mg PO Q8H PRN muscle spasm 02/17/23 [History Last Taken 02/16/23] isosorbide mononitrate 60 mg tablet,extended release 24 hr 60 mg PO BID 02/17/23 [History Last Taken 02/16/23] meloxicam 7.5 mg tablet 7.5 mg PO DAILY 02/17/23 [History Last Taken 02/16/23] metoprolol succinate 25 mg tablet,extended release 24 hr 25 mg PO DAILY 02/17/23 [History Last Taken 02/16/23] nitroglycerin 0.4 mg sublingual tablet 0.4 mg sublingual Q5M PRN chest pain 02/17/23 [History Last Taken Unknown] ranolazine 500 mg tablet,extended release,12 hr (Ranexa) 1,000 mg PO BID 02/17/23 [History Last Taken 02/16/23] Allergy/AdvReac Type Severity Reaction Status Date / Time bee venom protein (honey bee) Allergy Hives Verified 02/17/23 11:37 amlodipine AdvReac Severe severe Verified 02/17/23 11:37 swelling in hands and feet spider venom AdvReac Other Verified 02/17/23 11:37 Family History Father Heart disease Diabetes CAD (coronary artery disease) History of coronary artery bypass surgery Cardiac pacemaker in situ Pure hypercholesterolemia Surgical History H/O umbilical hernia repair History of cystoscopy History of inguinal hernia repair, bilateral History of knee surgery History of total right knee replacement Social History household members: spouse Smoking Status: Former smoker how long ago did patient quit smokin alcohol intake: never substance use type: does not use caffeine: Yes Type: tea Number of servings: 2 ROS <HUNG Russo - Last Filed: 02/17/23 17:51> ROS ED Constitutional Constitutional ED: Denies chills or fever(s) Cardiovascular Cardiovascular: Denies chest pain Respiratory/Chest Respiratory/Chest: Denies cough or dyspnea Gastrointestinal Gastrointestinal: Denies abdominal pain, nausea or vomiting Genitourinary Genitourinary ED: Denies dysuria, hematuria or urinary urgency Musculoskeletal Musculoskeletal: Reports back pain Integumentary Denies rash Neurologic Neurologic: Denies paresthesias or weakness EXAM <HUNG Russo - Last Filed: 02/17/23 17:51> Physical Exam Const Vital Signs: 02/17/23 11:32 02/17/23 15:47 Temperature 98.4 F 98 F Temperature Source Oral Temporal Pulse Rate 51 L 54 L Respiratory Rate 18 16 Blood Pressure 130/54 H 155/71 H Blood Pressure Mean 79 99 Pulse Ox 97 97 Oxygen Delivery Method Room Air Room Air Positive well nourished, well developed and no apparent distress General Appearance ED: well developed HEENT Reports normocephalic and head/scalp atraumatic Mouth ED: Yes moist mucous membranes normal Eyes PERRL and EOMs intact bilaterally Neck full ROM and supple Chest Wall inspection of chest normal Resp normal respiratory effort and clear to auscultation bilaterally Cardio regular rate and regular rhythm GI soft to palpation, non-tender, non-distended and no masses Back/Spine normal to inspection Back/Spine Narrative: Tenderness to the right lumbar paraspinal muscles, no midline lumbar tenderness, patient felt spasming in his right lumbar paraspinal muscles during examination. Range of motion limited due to pain. Lumbar Spine / Lower Back: straight leg raise negative bilaterally Extremity normal to inspection and full ROM Neuro oriented x3, CN's II-XII intact bilaterally, moves all extremities, no focal motor deficits and no sensory deficits noted Sensorium / Orientation: awake and alert Psych mental status grossly normal and thought process normal Skin no rashes or lesions noted and no wounds <Dr. Arpit Chand MD - Last Filed: 02/17/23 16:00> Physical Exam Const Vital Signs: 02/17/23 11:32 02/17/23 15:47 Temperature 98.4 F 98 F Temperature Source Oral Temporal Pulse Rate 51 L 54 L Respiratory Rate 18 16 Blood Pressure 130/54 H 155/71 H Blood Pressure Mean 79 99 Pulse Ox 97 97 Oxygen Delivery Method Room Air Room Air MDM <HUNG Russo - Last Filed: 02/17/23 17:51> [facility] Narrative Medical decision making narrative: Patient presenting due to right lower back pain. He has had this on and off for several months but acutely worsened this morning. He was unable to get out of bed and had to call EMS. It is hard to examine him because he is in so much pain, he has limited range of motion. He was able to roll over in the bed and had pain to palpation to his right lumbar paraspinal muscles, he reported he could feel them spasming. He does not have any history of kidney stones and is not having any urinary symptoms. He does not have any symptoms of cauda equina syndrome. Given patient's pain, CT of the abdomen and pelvis will be obtained as well as labs. He will be given IV fluids, Zofran, and morphine. CT shows compression fractures of T12 and and L1, these do not appear acute. Patient reports that he did fall about a week ago onto his right hip but denies any other injury. Patient required additional morphine for his pain. On reexamination he reports that his pain is somewhat controlled but he does not think he is going to be able to go home and ambulate, his is worried that she is not can to be able to assist him at home. Given he is having a difficult time ambulating, I will speak with the hospitalist for admission. Hospitalist requests we speak with orthospine, Dr. Phipps will see the patient, he will be admitted in stable condition and is comfortable with plan. Patient's urinalysis does suggest UTI but given he is not having any urinary symptoms, we will hold off on treating patient and culture will be obtained. Lab Data Attestation: I reviewed the patient's lab results. Lab results narrative: H&H 11.8 and 37.1, creatinine 1.78, BUN 24, GFR 40 Labs: Laboratory Results - last 24 hr 02/17/23 02/17/23 13:58 15:10 WBC 10.4 RBC 4.11 L Hgb 11.8 L Hct 37.1 L MCV 90.3 MCH 28.7 MCHC 31.8 L RDW Std Deviation 52.4 H RDW Coeff of Abdiel 15.9 H Plt Count 253 MPV 10.0 Immature Gran % (Auto) 0.300 Neut % (Auto) 78.0 H Lymph % (Auto) 9.3 L Johnson % (Auto) 12.0 H Eos % (Auto) 0.2 Baso % (Auto) 0.2 Absolute Neuts (auto) 8.1 H Absolute Lymphs (auto) 0.96 Nucleated RBC % 0 PT 26.4 H INR 2.4 Sodium 138 Potassium 4.5 Chloride 106 Carbon Dioxide 29.0 Anion Gap 3 L BUN 24 H Creatinine 1.78 H Estim Creat Clear Calc 38.62 Est GFR (MDRD) Af Amer 49 L Est GFR (MDRD) Non-Af 40 L BUN/Creatinine Ratio 13.5 Glucose 82 Calcium 9.2 Magnesium 2.3 Urine Color Yellow Urine Clarity Sl. Cloudy Urine pH 7.0 Ur Specific [place] 1.010 Urine Protein 30 H Urine Glucose (UA) Normal Urine Ketones Negative Urine Occult Blood 25 H Urine Nitrite Negative Urine Bilirubin Negative Urine Urobilinogen Normal Ur Leukocyte Esterase 500 H Urine RBC 0-5 SEEN Urine WBC >100 SEEN Ur Squamous Epith Cells 0-5 SEEN Amorphous Sediment 1+ PHOS Urine Bacteria 1+ Urine Mucus 0 SEEN Radiography Diagnostic Testing: Clinical Impression(s) from Imaging Studies Abdomen/Pelvis CT 02/17/23 12:10 IMPRESSION: 1. Interval development of prominent central compression fractures of the T12 and L1 vertebral bodies at the T12-L1 disc space level simulating Schmorl''s nodes but they do not appear acute. MRI of the thoracolumbar junction will help clarify if patient has debilitating back pain and kyphoplasty is a therapeutic consideration. 2. At least 2 simple cysts in the right kidney and one simple cyst in the left kidney. Multiple subcentimeter hypodense lesions in both kidneys are too small to confirm cystic or solid. They are unchanged when compared to 12/24/2022. 3. No suspicious acute abnormality in the abdomen and pelvis and no other additional findings or changes when compared to 12/24/2022. Electronically Signed: Juanjo Amin MD at 15:22 EST , <Dr. Arpit Chand MD - Last Filed: 02/17/23 16:00> [facility] Lab Data Labs: Laboratory Results - last 24 hr 02/17/23 02/17/23 13:58 15:10 WBC 10.4 RBC 4.11 L Hgb 11.8 L Hct 37.1 L MCV 90.3 MCH 28.7 MCHC 31.8 L RDW Std Deviation 52.4 H RDW Coeff of Abdiel 15.9 H Plt Count 253 MPV 10.0 Immature Gran % (Auto) 0.300 Neut % (Auto) 78.0 H Lymph % (Auto) 9.3 L Johnson % (Auto) 12.0 H Eos % (Auto) 0.2 Baso % (Auto) 0.2 Absolute Neuts (auto) 8.1 H Absolute Lymphs (auto) 0.96 Nucleated RBC % 0 PT 26.4 H INR 2.4 Sodium 138 Potassium 4.5 Chloride 106 Carbon Dioxide 29.0 Anion Gap 3 L BUN 24 H Creatinine 1.78 H Estim Creat Clear Calc 38.62 Est GFR (MDRD) Af Amer 49 L Est GFR (MDRD) Non-Af 40 L BUN/Creatinine Ratio 13.5 Glucose 82 Calcium 9.2 Magnesium 2.3 Urine Color Yellow Urine Clarity Sl. Cloudy Urine pH 7.0 Ur Specific [place] 1.010 Urine Protein 30 H Urine Glucose (UA) Normal Urine Ketones Negative Urine Occult Blood 25 H Urine Nitrite Negative Urine Bilirubin Negative Urine Urobilinogen Normal Ur Leukocyte Esterase 500 H Urine RBC 0-5 SEEN Urine WBC >100 SEEN Ur Squamous Epith Cells 0-5 SEEN Amorphous Sediment 1+ PHOS Urine Bacteria 1+ Urine Mucus 0 SEEN Radiography Diagnostic Testing: Clinical Impression(s) from Imaging Studies Abdomen/Pelvis CT 02/17/23 12:10 IMPRESSION: 1. Interval development of prominent central compression fractures of the T12 and L1 vertebral bodies at the T12-L1 disc space level simulating Schmorl''s nodes but they do not appear acute. MRI of the thoracolumbar junction will help clarify if patient has debilitating back pain and kyphoplasty is a therapeutic consideration. 2. At least 2 simple cysts in the right kidney and one simple cyst in the left kidney. Multiple subcentimeter hypodense lesions in both kidneys are too small to confirm cystic or solid. They are unchanged when compared to 12/24/2022. 3. No suspicious acute abnormality in the abdomen and pelvis and no other additional findings or changes when compared to 12/24/2022. 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 I performed a substantive portion of the visit including all aspects of the following. My irvin findings include: History is intermittent pain in low back more on the right side for the past several months, but worse since yesterday for no obvious reason. No repetitive lifting, fall, injury. Occasionally radiates down his left lower extremity but not below the knee. No new bowel or bladder dysfunction or saddle anesthesia. Significant worsening with any movement and complaining of spasms in his low back. No abdominal pain, nausea, vomiting. Exam is obese, abdomen diffusely nontender. Back is tender in the right paraspinal musculature, he has negative straight leg raises but they caused significant increase in his back pain and pain into his proximal left thigh ipsilaterally. Normal reflexes. No Mert or Good Figueroa sign. Very limited ability to move due to pain. Medical Decison Making: Will treat his symptoms to try to get him more mobile and in less discomfort while obtaining labs, urinalysis, and CT to rule out any emergent retroperitoneal process. Patient also suggest that he was having a couple episodes in the past several months of a separate pain in his right low back and flank that seem to start in the back and come around toward the groin before it eventually went away suggesting a kidney stone but he was not sure he never was seen for it. I reviewed the CT images and the report and I agree with it, basically shows compression fractures of the vertebrae T12 and L1. He has no neurologic compromise. Discussed with hospitalist for admission because he can barely stand although neurologically he is able and has no symptoms of cauda equina or conus medullaris syndrome, as urgent nonemergent MRI is indicated to evaluate further as well as a spine consult. Hospitalist asked us to consult spine now which we did discuss with Dr. Phipps, who will see the patient and agrees with the above. Other additions or changes: [None] Discharge Plan Dx/Rx/DC Orders Clinical Impression: Intractable low back pain, Compression fracture of T12 vertebra, Closed compression fracture of L1 vertebra Disposition Disposition: Acute Care Hospital [facility] Discharge Date/Time: 02/17/23 17:14
--- NOTE | 2023-02-17 12:10 | CT_ITS ---
EXAM: CT ABDOMEN AND PELVIS WITH INTRAVENOUS CONTRAST CLINICAL INDICATION: Right lower back pain x6 months. Worse today. TECHNIQUE: Helically acquired images were obtained of the abdomen and pelvis with intravenous contrast. This CT exam was performed using one or more of the following dose reduction techniques: automated exposure control, adjustment of the mA and/or kV according to patient size, and/or use of iterative reconstruction technique. CONTRAST: IV 100mL [id number] RADIATION DOSE: CTDIvol = 18.74 mGy, DLP = 1335.61 mGy-cm COMPARISON: CT abdomen and pelvis without contrast 12/24/2022. FINDINGS: LOWER THORAX: Unremarkable. Lung bases are clear. No cardiomegaly. No significant pericardial effusion. ABDOMEN: LIVER: Unremarkable. Homogeneous. No focal mass. GALLBLADDER AND BILE DUCTS: Unremarkable. No calcified gallstones. No gallbladder distention or wall edema. No intra- or extrahepatic biliary ductal dilation. PANCREAS: Unremarkable. No focal cystic or solid mass. SPLEEN: Unremarkable. Normal size without focal cystic or solid mass. ADRENALS: Unremarkable. No nodules. KIDNEYS AND URETERS: 3 mm nonobstructing stone in the right kidney. No right hydronephrosis. 2.6 cm hypodense cysts in the right anterior renal parenchyma with CT number of -1.94 Hounsfield units is simple cyst. This is unchanged. 2.1 cm hypodense cyst in the medial surface of the right lower renal parenchyma with CT number of 2.97 Hounsfield units is simple cyst. This is unchanged. 1.6 cm hypodense cyst in the left posterior renal parenchyma with CT number of 4.88 Hounsfield units is simple cyst. This is unchanged. No stones or hydronephrosis in the left kidney. Smaller subcentimeter hypodense lesions in both kidneys are too small to confirm cystic or solid. They are unchanged. STOMACH AND BOWEL: Unremarkable. No stomach or bowel distention. No focal inflammatory change. PELVIS: APPENDIX: No visible appendix and no secondary signs of acute appendicitis. BLADDER: Unremarkable. REPRODUCTIVE: Unremarkable as visualized. No mass. ABDOMEN and PELVIS: INTRAPERITONEAL SPACE: Unremarkable. No ascites or other fluid collection. No free air. BONES/JOINTS: Prominent central compression fractures of the T12 and L1 vertebral bodies at the T12-L1 disc space level are new findings. They do not appear acute. No suspicious lytic or blastic abnormality. SOFT TISSUES: Unremarkable. No discrete abdominal or pelvic wall hernia. VASCULATURE: Multiple calcified plaques along the infrarenal abdominal aorta and iliac arteries. No abdominal aortic aneurysm. LYMPH NODES: Unremarkable. No enlarged lymph nodes. CT/Abdomen/Pelvis W IV Cont ONLY IMPRESSION: 1. Interval development of prominent central compression fractures of the T12 and L1 vertebral bodies at the T12-L1 disc space level simulating Schmorl''s nodes but they do not appear acute. MRI of the thoracolumbar junction will help clarify if patient has debilitating back pain and kyphoplasty is a therapeutic consideration. 2. At least 2 simple cysts in the right kidney and one simple cyst in the left kidney. Multiple subcentimeter hypodense lesions in both kidneys are too small to confirm cystic or solid. They are unchanged when compared to 12/24/2022. 3. No suspicious acute abnormality in the abdomen and pelvis and no other additional findings or changes when compared to 12/24/2022. Electronically Signed: Juanjo Amin MD at 15:22 [facility] ,
[2023-02-17] MEDS: Morphine 4 MG/ML Syringe IV ×2 (12:42→14:44)
[2023-02-17] MEDS: Ondansetron 4 MG/2 ML Vial IV (12:42)
[2023-02-17] MEDS: Orphenadrine 60 MG/2 ML Ampul IV (12:42)
[2023-02-17] MEDS: 0.9% Normal Saline (1000mL) 1,000 ML 150 ML IV (12:45)
[2023-02-17 14:09] LABS: Absolute Lymphocyte Count 0.96 X10^3/uL (0.83-4.51); Absolute Neutrophil Count 8.1 X10^3/uL (2.0-7.7); Basophil# 0.02 X10^3/uL; Basophil% 0.2 % (0-1); Eosinophil# 0.02 X10^3/uL; Eosinophils% 0.2 % (0-5); Hematocrit 37.1 % (40-54); Hemoglobin 11.8 g/dL (13.0-16.5); Lymphocyte # 0.96 X10^3/ul (0.83-4.51); Lymphocyte % 9.3 % (19-41); Mean Corp Hgb Conc 31.8 g/dL (32-36); Mean Corpuscular Hgb 28.7 pg (27.0-32.0); Mean Corpuscular Volume 90.3 fL (80-94); Monocyte# 1.24 X10^3/uL; NRBC Flagged by Analyzer 0 % (0-5); Platelet Count 253 K/mm3 (150-450); RBC Distribution Width CV 15.9 % (11.6-14.6); RBC Distribution Width SD 52.4 fl (35.1-43.9); Red Blood Count 4.11 M/mm3 (4.6-6.2); White Blood Count 10.4 K/mm3 (4.4-11.0)
[2023-02-17 14:19] LABS: Anion Gap 3 (5-15); BUN 24 mg/dL (7-18); BUN/Creat Ratio 13.5 RATIO (10-20); Calcium,Total 9.2 mg/dL (8.5-10.1); Chloride 106 mmol/L (98-107); Creatinine, Serum 1.78 mg/dL (0.70-1.30); EST Glomerular Filtration Rate 40 mL/min (>60); Est Glom Filt Rate - Afr Amer 49 mL/min (>60); Estimated Creatinine Clearance 38.62 ml/min; Glucose 82 mg/dL (74-106); Potassium 4.5 mmol/L (3.5-5.1); Sodium Level 138 mmol/L (136-145)
[2023-02-17 15:20] LABS: Mucous, Urine 0 SEEN /hpf (<or=2+)
[2023-02-17 15:23] LABS: Color, Urine Yellow (Yellow); Glucose, Dipstick Normal (Normal); Ketone-Dipstick Negative (Negative); Leukocyte Esterase-Dipstick 500 /ul (Negative); Nitrite-Dipstick Negative (Negative); Occult Blood-Urine 25 /ul (Negative); Protein-Dipstick 30 mg/dl (Negative); Urine Bilirubin Dipstick Negative (Negative); Urine Clarity Sl. Cloudy (Clear); Urine Urobilinogen Normal (Normal)
[2023-02-17 15:39] LABS: Red Blood Cells-Urine 0-5 SEEN /hpf (0-5); Squamous Epithelial Cells - UA 0-5 SEEN /hpf (0-5); White Blood Cells >100 SEEN /hpf (0-5)
--- NOTE | 2023-02-17 15:39 | NURSING ---
DR BARONE FOR DR TIAN
[2023-02-17 15:40] LABS: Amorphous Sediment 1+ PHOS; Bacteria 1+ /hpf (None Seen)
[2023-02-17 15:47] VITALS: BP 155/71; PULSE 54; RESP 16; TEMP 36.6; O2SAT 97
--- NOTE | 2023-02-17 16:07 | NURSING ---
MED SURG ABISAI INTRACTABLE BACK PAIN, COMPRESSION FRACTURES
--- NOTE | 2023-02-17 16:12 | PCM.HP.STD ---
[facility] - General General Date of Admission: 03/07/23 Date of Service: 02/17/23 Chief Complaint: Acute on chronic back pain since last night. HPI Narrative GUSTAVO HARTMAN, is a 72 M with chronic back pain since August 2022 he describes slight pain in the lumbar area which got worse yesterday night while he went to the bed. He stated he could not get out of the pain because of pain, excruciating in nature from lumbar spine with radiation to left side of the buttock and thigh ending before knee. It is 10 out of 10 in intensity. Patient is on meloxicam 7.5 mg daily, cyclobenzaprine at home. He denies any precipitating factor that led to the worsening of pain. He had a fall about 3 years ago but no major accident or injury. Denies fever or chills. In ED, patient had CT abdomen/pelvis shows compression fracture of T12 and L1 vertebral bodies at the T12-L1 disc space level but do not appear acute. Vitals, labs and imaging reviewed and discussed in assessment and plan. ED physician consulted Dr. Hal Phipps. . 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) use of anticoagulants Morbid obesity LILI on CPAP Paroxysmal atrial fibrillation Polyarthritis Pure hypercholesterolemia Viral syndrome Wears glasses Home Medications citalopram 20 mg tablet 20 mg PO DAILY MOOD 09/21/14 [History Last Taken 02/16/23] multivitamin 1 tab PO DAILY SUPPLEMENT 09/21/14 [History Last Taken 02/16/23] esomeprazole magnesium 20 mg capsule,delayed release 20 mg PO DAILY 05/18/19 [History Last Taken 02/16/23] tamsulosin 0.4 mg capsule 0.4 mg PO DAILY 05/18/19 [History Last Taken 02/16/23] cod liver oil 1 cap PO DAILY arthritis 02/03/20 [History Last Taken 02/16/23] turmeric 400 mg capsule 450 mg PO DAILY arthritis 02/03/20 [History Last Taken 02/16/23] hydroxychloroquine 200 mg tablet 200 mg PO BID arthritis 04/25/21 [History Last Taken 02/16/23] Handicap Placard #1 ea 07/05/21 [Rx Last Taken Unknown] mirtazapine 30 mg tablet 30 mg PO QHS 10/01/22 [History Last Taken 02/16/23] atorvastatin 80 mg tablet See Rx Instructions .Route .COMPLEX #90 tabs 11/21/22 [Rx Last Taken 02/16/23] warfarin 4 mg tablet 4 mg PO .COMPLEX #60 tabs 01/23/23 [Rx Last Taken 02/16/23] allopurinol 300 mg tablet 300 mg PO DAILY 02/17/23 [History Last Taken 02/16/23] aspirin 81 mg tablet,delayed release (Adult Aspirin Regimen) 81 mg PO DAILY 02/17/23 [History Last Taken 02/16/23] cyclobenzaprine 10 mg tablet 10 mg PO Q8H PRN muscle spasm 02/17/23 [History Last Taken 02/16/23] isosorbide mononitrate 60 mg tablet,extended release 24 hr 60 mg PO BID 02/17/23 [History Last Taken 02/16/23] meloxicam 7.5 mg tablet 7.5 mg PO DAILY 02/17/23 [History Last Taken 02/16/23] metoprolol succinate 25 mg tablet,extended release 24 hr 25 mg PO DAILY 02/17/23 [History Last Taken 02/16/23] nitroglycerin 0.4 mg sublingual tablet 0.4 mg sublingual Q5M PRN chest pain 02/17/23 [History Last Taken Unknown] ranolazine 500 mg tablet,extended release,12 hr (Ranexa) 1,000 mg PO BID 02/17/23 [History Last Taken 02/16/23] Allergy/AdvReac Type Severity Reaction Status Date / Time bee venom protein (honey bee) Allergy Hives Verified 02/17/23 11:37 amlodipine AdvReac Severe severe Verified 02/17/23 11:37 swelling in hands and feet spider venom AdvReac Other Verified 02/17/23 11:37 Family History Father Heart disease Diabetes CAD (coronary artery disease) History of coronary artery bypass surgery Cardiac pacemaker in situ Pure hypercholesterolemia Surgical History H/O umbilical hernia repair History of cystoscopy History of inguinal hernia repair, bilateral History of knee surgery History of total right knee replacement Social History household members: spouse Smoking Status: Former smoker how long ago did patient quit smokin alcohol intake: never substance use type: does not use caffeine: Yes Type: tea Number of servings: 2 ROS ROS Narrative Constitutional: Reports fatigue and weakness. No fever. HEENT: Reports systems reviewed and no addt'l complaints, except as documented Respiratory/Chest: Has chronic shortness of breath on exertion. No acute shortness of breath or respiratory distress or wheezing. CVS: History of coronary artery disease with natural collateral development/bypass as described by patient. Denies recent chest pressure tightness or anginal-like quality pain. Gastrointestinal: Denies coffee ground emesis, hematemesis or vomiting. Denies fecal incontinence Genitourinary: History of urethral exteriors s/p dilatation. Chronic urinary incontinence. Denies acute burning urination or new urinary tract symptoms. He spontaneously voided urine. Musculoskeletal: As described in HPI. No acute injury Neurologic: Denies seizure-like symptoms. Has sensation around perineal region. No acute or strokelike symptoms. skin: No ulcer. No rash Endocrinology: Reports systems reviewed and no addt'l complaints, except as documented Hematologic/Lymphatic: On anticoagulant for paroxysmal A-fib. Reports systems reviewed and no addt'l complaints, except as documented Rest 14 ROS are negative except as mentioned in HPI Vital Signs Vital Signs Vital Signs: 02/17/23 11:32 02/17/23 15:47 Temperature 98.4 F 98 F Temperature Source Oral Temporal Pulse Rate 51 L 54 L Respiratory Rate 18 16 Blood Pressure 130/54 H 155/71 H Blood Pressure Mean 79 99 Pulse Ox 97 97 Oxygen Delivery Method Room Air Room Air Weight Weight: 326 lb 11.601 oz Body Mass Index (BMI) 48.2 Physical Exam Narrative General: Alert, Oriented x3, Cooperative HEENT: Atraumatic, PERRLA, EOMI, Normocephalic Oral: Oral mucosa dry. No Gingival or Mucosal Lesions/ Ulcerations Neck: Supple, No JVD, Negative Carotid Bruits Lungs: Air entry diminished in bilateral lung bases. No crepitation/rhonchi Cardiovascular: Regular rate, Regular Rhythm, Normal S1, Normal S2, No murmurs Abdomen: Bowel Sounds Present, Soft, Non Tender, Non-Distended Per rectal exam: Examined in supine position. Anal sphincter tone present. No fecal incontinence. : No renal angle tenderness. No suprapubic tenderness. Extremities: No edema, Capillary Refill Less than 3 Seconds Skin: No rashes, No breakdown Musculoskeletal: No Tenderness to Palpation of Joints or Extremities. Status post right TKR Spine: Could not turn, examined in supine position. Sensation to touch and pressure symmetric in perineal region and scrotal region and both lower extremities. Neurological: Cranial nerves II-XII grossly intact, DTR 2+/4. No acute focal neurological deficit. Muscle strength 5/5 in RLE at knees and hip but on left side at hip joint 4+/5 due to pain and spasm Psych/Mental Status: Normal Affect, Appropriate. Results Lab / Micro Data 02/17/23 13:58 02/17/23 13:58 Labs: Laboratory Results - last 24 hr 02/17/23 13:58: WBC 10.4, RBC 4.11 L, Hgb 11.8 L, Hct 37.1 L, MCV 90.3, MCH 28.7, MCHC 31.8 L, RDW Std Deviation 52.4 H, RDW Coeff of Abdiel 15.9 H, Plt Count 253, MPV 10.0, Immature Gran % (Auto) 0.300, Neut % (Auto) 78.0 H, Lymph % (Auto) 9.3 L, Whitfield % (Auto) 12.0 H, Eos % (Auto) 0.2, Baso % (Auto) 0.2, Absolute Neuts (auto) 8.1 H, Absolute Lymphs (auto) 0.96, Nucleated RBC % 0, Sodium 138, Potassium 4.5, Chloride 106, Carbon Dioxide 29.0, Anion Gap 3 L, BUN 24 H, Creatinine 1.78 H, Estim Creat Clear Calc 38.62, Est GFR (MDRD) Af Amer 49 L, Est GFR (MDRD) Non-Af 40 L, BUN/Creatinine Ratio 13.5, Glucose 82, Calcium 9.2 02/17/23 15:10: Urine Color Yellow, Urine Clarity Sl. Cloudy, Urine pH 7.0, Ur Specific [place] 1.010, Urine Protein 30 H, Urine Glucose (UA) Normal, Urine Ketones Negative, Urine Occult Blood 25 H, Urine Nitrite Negative, Urine Bilirubin Negative, Urine Urobilinogen Normal, Ur Leukocyte Esterase 500 H, Urine RBC 0-5 SEEN, Urine WBC >100 SEEN, Ur Squamous Epith Cells 0-5 SEEN, Amorphous Sediment 1+ PHOS, Urine Bacteria 1+, Urine Mucus 0 SEEN Imagaing Radiology Impression Abdomen/Pelvis CT 02/17/23 12:10 IMPRESSION: 1. Interval development of prominent central compression fractures of the T12 and L1 vertebral bodies at the T12-L1 disc space level simulating Schmorl''s nodes but they do not appear acute. MRI of the thoracolumbar junction will help clarify if patient has debilitating back pain and kyphoplasty is a therapeutic consideration. 2. At least 2 simple cysts in the right kidney and one simple cyst in the left kidney. Multiple subcentimeter hypodense lesions in both kidneys are too small to confirm cystic or solid. They are unchanged when compared to 12/24/2022. 3. No suspicious acute abnormality in the abdomen and pelvis and no other additional findings or changes when compared to 12/24/2022. Electronically Signed: Juanjo Amin MD at 15:22 EST , Assessment & Plan Assessment/Plan (1) Closed compression fracture of L1 vertebra: QUALIFIERS: Encounter type: initial encounter Qualified Code(s): S32.010A - Wedge compression fracture of first lumbar vertebra, initial encounter for closed fracture (2) Compression fracture of T12 vertebra: QUALIFIERS: Encounter type: initial encounter Qualified Code(s): S22.080A - Wedge compression fracture of T11-T12 vertebra, initial encounter for closed fracture (3) Intractable low back pain: PLAN: Plan This 72-year-old gentleman being admitted for acute on chronic back pain 1. Acute exacerbation of chronic back pain related to compression fracture of T12 and L1 vertebra: On exam, does not seem a spinal cord compression with intact NLS intact tone and perineal sensation. Abdomen/pelvis CT initially reviewed and shows interval development of prominent central compression fractures of T12 and L1 vertebra with T12-L1 disc space simulating Schmorl's nodes but do not appear acute. MRI of the thoracic and lumbar vertebra ordered. Patient is started on pain control with Tylenol, oxycodone and Dilaudid as needed per pain scale. On muscle relaxant. PT and OT ordered. Orthospine consult Dr. Hal Phipps requested. 2. Coronary artery disease with chronic RCA occlusion, paroxysmal A-fib on warfarin, hypertension and dyslipidemia: PT and INR ordered. Patient follows [facility] [facility] office. No acute chest pain or anginal-like symptoms. Patient on baby aspirin, isosorbide mononitrate and Ranexa continued. 3. CKD stage IIIb: Patient BUNs/creatinine 24/1.78 better than the previous 22/2.04 on 02/05/2023. Avoid nephrotoxic medications. UA is ordered but patient does not complain of burning micturition. Low suspicion for UTI. 4. 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 5. Morbid obesity: BMI 48.2 kg/m?. Weight loss counseling done. Follow-up with PCP. 6. Anxiety and depression: Patient on citalopram and mirtazapine at home continued. 7. BPH and seems urethral stricture requiring dilatation as per history: Currently no acute complaints/system. On Flomax continued. Spontaneously voided urine today. VTE prophylaxis on warfarin. PT/INR ordered. Keep INR between 2-3. Living will/advanced directive/end of life care: Patient does not have living will or advanced directive. His is power of associate attorney for health. After discussion of benefits/risks procedures involved with full code, DNR CC arrest and DNR CC, the patient and his opted for full code. Patient does want artificial life support including intubation, tube feed, ventilator and/chest compression, central venous catheter, vasopressor and DC shock if needed Total time spent in [id number] encounter in discussion of advanced directive 17 minutes. Laboratory Results 02/17/23 13:58: WBC 10.4, RBC 4.11 L, Hgb 11.8 L, Hct 37.1 L, MCV 90.3, MCH 28.7, MCHC 31.8 L, RDW Std Deviation 52.4 H, RDW Coeff of Abdiel 15.9 H, Plt Count 253, MPV 10.0, Immature Gran % (Auto) 0.300, Neut % (Auto) 78.0 H, Lymph % (Auto) 9.3 L, [place] % (Auto) 12.0 H, Eos % (Auto) 0.2, Baso % (Auto) 0.2, Absolute Neuts (auto) 8.1 H, Absolute Lymphs (auto) 0.96, Nucleated RBC % 0, Sodium 138, Potassium 4.5, Chloride 106, Carbon Dioxide 29.0, Anion Gap 3 L, BUN 24 H, Creatinine 1.78 H, Estim Creat Clear Calc 38.62, Est GFR (MDRD) Af Amer 49 L, Est GFR (MDRD) Non-Af 40 L, BUN/Creatinine Ratio 13.5, Glucose 82, Calcium 9.2 02/17/23 15:10: Urine Color Yellow, Urine Clarity Sl. Cloudy, Urine pH 7.0, Ur Specific [place] 1.010, Urine Protein 30 H, Urine Glucose (UA) Normal, Urine Ketones Negative, Urine Occult Blood 25 H, Urine Nitrite Negative, Urine Bilirubin Negative, Urine Urobilinogen Normal, Ur Leukocyte Esterase 500 H, Urine RBC 0-5 SEEN, Urine WBC >100 SEEN, Ur Squamous Epith Cells 0-5 SEEN, Amorphous Sediment 1+ PHOS, Urine Bacteria 1+, Urine Mucus 0 SEEN Clinical Impression(s) from Imaging Studies Abdomen/Pelvis CT 02/17/23 12:10 IMPRESSION: 1. Interval development of prominent central compression fractures of the T12 and L1 vertebral bodies at the T12-L1 disc space level simulating Schmorl''s nodes but they do not appear acute. MRI of the thoracolumbar junction will help clarify if patient has debilitating back pain and kyphoplasty is a therapeutic consideration. 2. At least 2 simple cysts in the right kidney and one simple cyst in the left kidney. Multiple subcentimeter hypodense lesions in both kidneys are too small to confirm cystic or solid. They are unchanged when compared to 12/24/2022. 3. No suspicious acute abnormality in the abdomen and pelvis and no other additional findings or changes when compared to 12/24/2022. Charges/Coding Visit Charges Inpatient E&M: 31018 Init Hosp L3 Procedures Hospitalists Procedures: 53280 Advncd Care Plan 30 Min
[2023-02-17 17:01] LABS: International Normalized Ratio 2.4; Prothrombin Time (Protime)PT. 26.4 SECONDS (11.7-14.9)
[2023-02-17 17:07] LABS: Magnesium 2.3 mg/dL (1.6-2.6)
[2023-02-17 17:12] VITALS: BMI 48.2
[2023-02-17 17:28] VITALS: BP 151/61; PULSE 54; RESP 18; TEMP 36.5; O2SAT 100
[2023-02-17] MEDS: Tamsulosin HCl 0.4 MG Capsule PO (17:44)
[2023-02-17] MEDS: Acetaminophen 325 MG Tablet 650 MG PO (17:45)
[2023-02-17] MEDS: Lactated Ringers 1,000 ML 60 ML IV (17:45)
[2023-02-17] MEDS: tiZANidine HCl 2 MG Tablet 4 MG PO (17:45)
[2023-02-17] MEDS: oxyCODONE 5 MG Tablet PO (17:46)
[2023-02-17] MEDS: Meloxicam 7.5 MG Tablet PO (17:46)
[2023-02-17] MEDS: Isosorbide Mononitrate 60 MG Tablet PO (20:55)
[2023-02-17] MEDS: Hydroxychloroquine 200 MG Tablet PO (20:55)
[2023-02-17] MEDS: Atorvastatin Calcium 80 MG Tablet PO (20:55)
[2023-02-17] MEDS: Ranolazine 500 MG Tablet 1000 MG PO (20:55)
[2023-02-17] MEDS: Mirtazapine 30 MG Tablet PO (20:56)
[2023-02-17] MEDS: Senna/Docusate Sodium 1 Tablet 2 TABLET PO (20:56)
[2023-02-17 21:07] VITALS: BP 118/56; PULSE 64; RESP 18; TEMP 36.8; O2SAT 97
[2023-02-18] MEDS: Acetaminophen 325 MG Tablet 650 MG PO ×4 (01:01→20:48)
[2023-02-18] MEDS: oxyCODONE 5 MG Tablet PO ×4 (01:01→20:48)
[2023-02-18 02:00] VITALS: BP 138/62; PULSE 58; RESP 18; TEMP 36.7; O2SAT 97
[2023-02-18 06:00] VITALS: BMI 48.1
[2023-02-18 06:09] LABS: Absolute Lymphocyte Count 1.19 X10^3/uL (0.83-4.51); Absolute Neutrophil Count 6.4 X10^3/uL (2.0-7.7); Basophil# 0.03 X10^3/uL; Basophil% 0.3 % (0-1); Eosinophil# 0.04 X10^3/uL; Eosinophils% 0.4 % (0-5); Hematocrit 33.6 % (40-54); Hemoglobin 10.4 g/dL (13.0-16.5); Lymphocyte # 1.19 X10^3/ul (0.83-4.51); Lymphocyte % 13.2 % (19-41); Mean Corpuscular Hgb 28.3 pg (27.0-32.0); Mean Corpuscular Volume 91.3 fL (80-94); Mean Platelet Vol. 10.5 fl (6.2-12.0); Monocyte# 1.35 X10^3/uL; NRBC Flagged by Analyzer 0 % (0-5); Neutrophil # 6.37 X10^3/uL (2.7-7.7); Neutrophil % 70.8 % (47-70); Platelet Count 247 K/mm3 (150-450); RBC Distribution Width CV 15.9 % (11.6-14.6); RBC Distribution Width SD 52.7 fl (35.1-43.9); Red Blood Count 3.68 M/mm3 (4.6-6.2)
[2023-02-18 06:19] LABS: Anion Gap 3 (5-15); BUN 24 mg/dL (7-18); Calcium,Total 8.3 mg/dL (8.5-10.1); Chloride 109 mmol/L (98-107); Creatinine, Serum 1.84 mg/dL (0.70-1.30); EST Glomerular Filtration Rate 39 mL/min (>60); Est Glom Filt Rate - Afr Amer 47 mL/min (>60); Estimated Creatinine Clearance 37.36 ml/min; Glucose 87 mg/dL (74-106); Potassium 4.7 mmol/L (3.5-5.1); Sodium Level 141 mmol/L (136-145)
[2023-02-18 06:39] LABS: International Normalized Ratio 2.7; Prothrombin Time (Protime)PT. 29.1 SECONDS (11.7-14.9)
[2023-02-18] MEDS: tiZANidine HCl 2 MG Tablet 4 MG PO ×3 (06:44→20:49)
[2023-02-18 08:00] VITALS: BP 150/74; PULSE 56; RESP 18; TEMP 36.6; O2SAT 95
[2023-02-18] MEDS: Multivitamins,Therapeutic Tablet 1 TABLET PO (08:27)
[2023-02-18] MEDS: Meloxicam 7.5 MG Tablet PO (08:27)
[2023-02-18] MEDS: Aspirin E.C. 81 MG Tablet PO (08:27)
[2023-02-18] MEDS: Pantoprazole Sodium 20 MG Tablet PO (11:28)
[2023-02-18] MEDS: Isosorbide Mononitrate 60 MG Tablet PO ×2 (11:28→20:49)
[2023-02-18] MEDS: Allopurinol 300 MG Tablet PO (11:28)
[2023-02-18] MEDS: Hydroxychloroquine 200 MG Tablet PO ×2 (11:28→20:50)
[2023-02-18] MEDS: Ranolazine 500 MG Tablet 1000 MG PO ×2 (11:28→20:49)
[2023-02-18 11:29] VITALS: BP 150/60; PULSE 65
[2023-02-18] MEDS: Metoprolol(XL)Succ 25 MG Tablet PO (11:29)
[2023-02-18] MEDS: Citalopram 20 MG Tablet PO (11:29)
--- NOTE | 2023-02-18 12:47 | CON.PCM.OR_ITS ---
HPI Consult Data Date of Consult: 02/18/23 HPI Narrative Reason for Consultation: Acute severe back pain HPI Narrative: GUSTAVO HARTMAN, is a 72 M who presents with acute severe exacerbation of chronic back pain for the past few days. Onset was insidious. He describes severe pain in the lumbosacral region that is worse with movement and activity and better with rest. He states the pain occasionally radiates into the left lower extremi ty. He denies any other acute numbness tingling weakness or changes in bowel or bladder function. He denies any history of back surgeries or back injections. He did present to the ER where he was seen and evaluated. Image studies including a CT of the abdomen and pelvis was performed which showed Schmorl's node at T12-L1 with compression of the adjacent endplates. He was subsequently admitted. [facility]ospine was consulted for evaluation. [facility] Medical History Ambulates with cane Anxiety and depression Arthritis Atherosclerotic heart disease of [place] coronary artery without angina pectoris Atrial fibrillation Chronic UTI CKD (chronic kidney disease), stage III Depression Essential hypertension Former smoker GERD (gastroesophageal reflux disease) Gout History of left heart catheterization (LHC) (~07/29/19) [facility] (current) use of anticoagulants Morbid obesity LILI on CPAP Paroxysmal atrial fibrillation Polyarthritis Pure hypercholesterolemia Viral syndrome Wears glasses Home Medications citalopram 20 mg tablet 20 mg PO DAILY MOOD 09/21/14 [History Last Taken 02/16/23] multivitamin 1 tab PO DAILY SUPPLEMENT 09/21/14 [History Last Taken 02/16/23] esomeprazole magnesium 20 mg capsule,delayed release 20 mg PO DAILY 05/18/19 [History Last Taken 02/16/23] tamsulosin 0.4 mg capsule 0.4 mg PO DAILY 05/18/19 [History Last Taken 02/16/23] cod liver oil 1 cap PO DAILY arthritis 02/03/20 [History Last Taken 02/16/23] turmeric 400 mg capsule 450 mg PO DAILY arthritis 02/03/20 [History Last Taken 02/16/23] hydroxychloroquine 200 mg tablet 200 mg PO BID arthritis 04/25/21 [History Last Taken 02/16/23] Handicap Placard #1 ea 07/05/21 [Rx Last Taken Unknown] mirtazapine 30 mg tablet 30 mg PO QHS 10/01/22 [History Last Taken 02/16/23] atorvastatin 80 mg tablet See Rx Instructions .Route .COMPLEX #90 tabs 11/21/22 [Rx Last Taken 02/16/23] warfarin 4 mg tablet 4 mg PO .COMPLEX #60 tabs 01/23/23 [Rx Last Taken 02/16/23] allopurinol 300 mg tablet 300 mg PO DAILY 02/17/23 [History Last Taken 02/16/23] aspirin 81 mg tablet,delayed release (Adult Aspirin Regimen) 81 mg PO DAILY 02/17/23 [History Last Taken 02/16/23] cyclobenzaprine 10 mg tablet 10 mg PO Q8H PRN muscle spasm 02/17/23 [History Last Taken 02/16/23] isosorbide mononitrate 60 mg tablet,extended release 24 hr 60 mg PO BID 02/17/23 [History Last Taken 02/16/23] meloxicam 7.5 mg tablet 7.5 mg PO DAILY 02/17/23 [History Last Taken 02/16/23] metoprolol succinate 25 mg tablet,extended release 24 hr 25 mg PO DAILY 02/17/23 [History Last Taken 02/16/23] nitroglycerin 0.4 mg sublingual tablet 0.4 mg sublingual Q5M PRN chest pain 02/17/23 [History Last Taken Unknown] ranolazine 500 mg tablet,extended release,12 hr (Ranexa) 1,000 mg PO BID 02/17/23 [History Last Taken 02/16/23] Allergy/AdvReac Type Severity Reaction Status Date / Time bee venom protein (honey bee) Allergy Hives Verified 02/17/23 11:37 amlodipine AdvReac Severe severe Verified 02/17/23 11:37 swelling in hands and feet spider venom AdvReac Other Verified 02/17/23 11:37 Family History Father Heart disease Diabetes CAD (coronary artery disease) History of coronary artery bypass surgery Cardiac pacemaker in situ Pure hypercholesterolemia Surgical History H/O umbilical hernia repair History of cystoscopy History of inguinal hernia repair, bilateral History of knee surgery History of total right knee replacement Social History household members: spouse Smoking Status: Former smoker how long ago did patient quit smokin alcohol intake: never substance use type: does not use caffeine: Yes Type: tea Number of servings: 2 Vital Signs Vital Signs Vital Signs: 02/17/23 15:47 02/17/23 17:28 02/17/23 17:12 Temperature 98 F 97.7 F L Temperature Source Temporal Oral Pulse Rate 54 L 54 L Pulse Strength Respiratory Rate 16 18 Respiratory Effort Normal Non-Labored Respiratory Depth Normal Respiratory Pattern Normal Blood Pressure 155/71 H 151/61 H Blood Pressure Mean 99 91 Blood Pressure Source Monitor Blood Pressure Position Semi-Fowlers Blood Pressure Location Left Arm Pulse Ox 97 100 Oxygen Delivery Method Room Air Room Air Room Air 02/17/23 21:07 02/17/23 21:08 02/18/23 02:00 Temperature 98.3 F 98.0 F Temperature Source Temporal Temporal Pulse Rate 64 58 L Pulse Strength Respiratory Rate 18 18 Respiratory Effort Normal Non-Labored Respiratory Depth Normal Respiratory Pattern Normal Blood Pressure 118/56 L 138/62 H Blood Pressure Mean 76 87 Blood Pressure Source Monitor Monitor Blood Pressure Position Supine Blood Pressure Location Left Arm Pulse Ox 97 97 Oxygen Delivery Method Room Air Room Air Room Air 02/18/23 07:52 02/18/23 08:00 02/18/23 08:00 Temperature 98 F Temperature Source Oral Pulse Rate 56 L 56 L Pulse Strength Respiratory Rate 18 18 Respiratory Effort Normal Respiratory Depth Normal Respiratory Pattern Normal Blood Pressure 150/74 H Blood Pressure Mean 99 Blood Pressure Source Monitor Blood Pressure Position Semi-Fowlers Blood Pressure Location Left Forearm Pulse Ox 95 Oxygen Delivery Method Room Air Room Air Room Air 02/18/23 11:29 02/18/23 10:00 Temperature Temperature Source Pulse Rate 65 Pulse Strength Normal (2+) Respiratory Rate Respiratory Effort Respiratory Depth Respiratory Pattern Blood Pressure 150/60 H Blood Pressure Mean Blood Pressure Source Blood Pressure Position Blood Pressure Location Pulse Ox Oxygen Delivery Method Weight Weight: 325 lb Body Mass Index (BMI) 48.1 Physical Exam Const alert and oriented x3 Constitutional Narrative: Morbidly obese. The patient complains of pain in the lower lumbosacral region with movement. General Appearance: cooperative Neck full ROM General: normal visual inspection Resp normal respiratory effort and normal air movement Effort and Inspection: able to speak in complete sentences Cardio regular rate and peripheral pulses 2+ throughout GI soft to palpation, non-tender and non-distended Back/Spine Back/Spine Narrative: Patient describes mild tenderness along the posterior lumbosacral beltline greater on the left Cervical Spine: cervical ROM normal Thoracic Spine / Upper Back: normal to inspection Lumbar Spine / Lower Back: normal to inspection Extremity normal to inspection, full ROM, normal capillary refill, no clubbing, cyanosis or edema and no calf tenderness Neuro oriented x3, CN's II-XII intact bilaterally, moves all extremities, no focal motor deficits, no sensory deficits noted and deep tendon reflexes 2+ bilaterally Motor Exam: strength 5/5 throughout and muscle tone normal throughout Lab / Micro Data 02/18/23 05:11 02/18/23 05:11 Labs: Laboratory Results - last 24 hr 02/17/23 13:58: WBC 10.4, RBC 4.11 L, Hgb 11.8 L, Hct 37.1 L, MCV 90.3, MCH 28.7, MCHC 31.8 L, RDW Std Deviation 52.4 H, RDW Coeff of Abdiel 15.9 H, Plt Count 253, MPV 10.0, Immature Gran % (Auto) 0.300, Neut % (Auto) 78.0 H, Lymph % (Auto) 9.3 L, [place] % (Auto) 12.0 H, Eos % (Auto) 0.2, Baso % (Auto) 0.2, Absolute Neuts (auto) 8.1 H, Absolute Lymphs (auto) 0.96, Nucleated RBC % 0, PT 26.4 H, INR 2.4, Sodium 138, Potassium 4.5, Chloride 106, Carbon Dioxide 29.0, Anion Gap 3 L, BUN 24 H, Creatinine 1.78 H, Estim Creat Clear Calc 38.62, Est GFR (MDRD) Af Amer 49 L, Est GFR (MDRD) Non-Af 40 L, BUN/Creatinine Ratio 13.5, Glucose 82, Calcium 9.2, Magnesium 2.3 02/17/23 15:10: Urine Color Yellow, Urine Clarity Sl. Cloudy, Urine pH 7.0, Ur Specific [place] 1.010, Urine Protein 30 H, Urine Glucose (UA) Normal, Urine Ketones Negative, Urine Occult Blood 25 H, Urine Nitrite Negative, Urine Bilirubin Negative, Urine Urobilinogen Normal, Ur Leukocyte Esterase 500 H, Urine RBC 0-5 SEEN, Urine WBC >100 SEEN, Ur Squamous Epith Cells 0-5 SEEN, Amorphous Sediment 1+ PHOS, Urine Bacteria 1+, Urine Mucus 0 SEEN 02/18/23 05:11: WBC 9.0, RBC 3.68 L, Hgb 10.4 L, Hct 33.6 L, MCV 91.3, MCH 28.3, MCHC 31.0 L, RDW Std Deviation 52.7 H, RDW Coeff of Abdiel 15.9 H, Plt Count 247, MPV 10.5, Immature Gran % (Auto) 0.300, Neut % (Auto) 70.8 H, Lymph % (Auto) 13.2 L, [place] % (Auto) 15.0 H, Eos % (Auto) 0.4, Baso % (Auto) 0.3, Absolute Neuts (auto) 6.4, Absolute Lymphs (auto) 1.19, Nucleated RBC % 0, PT 29.1 H, INR 2.7, Sodium 141, Potassium 4.7, Chloride 109 H, Carbon Dioxide 29.0, Anion Gap 3 L, BUN 24 H, Creatinine 1.84 H, Estim Creat Clear Calc 37.36, Est GFR (MDRD) Af Amer 47 L, Est GFR (MDRD) Non-Af 39 L, BUN/Creatinine Ratio 13.0, Glucose 87, Calcium 8.3 L Micro: Microbiology 02/17/23 10:15 Urine, Clean Catch Urine Culture - Preliminary Gram negative wilber Imagaing Radiology Impression Abdomen/Pelvis CT 02/17/23 12:10 IMPRESSION: 1. Interval development of prominent central compression fractures of the T12 and L1 vertebral bodies at the T12-L1 disc space level simulating Schmorl''s nodes but they do not appear acute. MRI of the thoracolumbar junction will help clarify if patient has debilitating back pain and kyphoplasty is a therapeutic consideration. 2. At least 2 simple cysts in the right kidney and one simple cyst in the left kidney. Multiple subcentimeter hypodense lesions in both kidneys are too small to confirm cystic or solid. They are unchanged when compared to 12/24/2022. 3. No suspicious acute abnormality in the abdomen and pelvis and no other additional findings or changes when compared to 12/24/2022. Electronically Signed: Juanjo Amin MD at 15:22 EST , Assessment & Plan Assessment/Plan (1) Lumbar stenosis: PLAN: I had a lengthy discussion with the patient. I reviewed his imaging with him. CT of the abdomen pelvis shows Schmorl's node at T12-L1 with compression of the adjacent endplates age-indeterminate. He also has significant degen erative changes at multiple levels of the lumbar spine with associated stenosis. I recommend a thoracic and lumbar MRI for further evaluation. In the meantime I recommend pain control and mobilization as tolerated. Once his scans are complete I will review the results and discuss further treatment options. He understands and agrees with the treatment plan (2) Closed compression fracture of L1 vertebra: QUALIFIERS: Encounter type: initial encounter Qualified Code(s): S32.010A - Wedge compression fracture of first lumbar vertebra, initial encounter for closed fracture (3) Compression fracture of T12 vertebra: QUALIFIERS: Encounter type: initial encounter Qualified Code(s): S22.080A - Wedge compression fracture of T11-T12 vertebra, initial encounter for closed fracture
[2023-02-18 14:00] VITALS: BP 150/70; PULSE 69; RESP 18; TEMP 36.6; O2SAT 97
--- NOTE | 2023-02-18 14:51 | PCM.PN.HOSP ---
Reason for Visit Reason for Visit: Diagnoses Spinal stenosis, lumbar region without neurogenic claudication (02/17/23) Other low back pain (02/17/23) Wedge compression fracture of T11-T12 vertebra, initial encounter for closed fracture (02/17/23) Wedge compression fracture of first lumbar vertebra, initial encounter for closed fracture (02/17/23) Subjective Subjective Patient was seen and examined today, he still complains of low back pain, I went over his lumbar CT results with him and told him that spinal surgery would be seeing him in consultation. I also noted that the admitting doctor (Dr. Martinez) had ordered an MRI of his lumbar and thoracic spine which spinal surgery also requested. Objective Data Objective Data Vital Signs: Vital Signs Temp Pulse Resp BP Pulse Ox O2 Del Method 98 F 69 18 150/70 H 97 Room Air 02/18/23 14:00 02/18/23 14:00 02/18/23 14:00 02/18/23 14:00 02/18/23 14:00 02/18/23 14:00 Oxygen Delivery Method Room Air Weight: 147.418 kg Body Mass Index (BMI) 48.1 Intake & Output: Intake and Output for Last 24 Hours 02/16/23 02/17/23 02/18/23 23:59 23:59 23:59 Intake Total 1067.5 / 1067.5 1108 / 1108 Output Total 150 / 150 550 / 550 Balance 917.5 / 917.5 558 / 558 Lab / Micro Data 02/18/23 05:11 02/18/23 05:11 Labs: Laboratory Results - last 24 hr 02/17/23 13:58: PT 26.4 H, INR 2.4, Magnesium 2.3 02/17/23 15:10: Urine Color Yellow, Urine Clarity Sl. Cloudy, Urine pH 7.0, Ur Specific [place] 1.010, Urine Protein 30 H, Urine Glucose (UA) Normal, Urine Ketones Negative, Urine Occult Blood 25 H, Urine Nitrite Negative, Urine Bilirubin Negative, Urine Urobilinogen Normal, Ur Leukocyte Esterase 500 H, Urine RBC 0-5 SEEN, Urine WBC >100 SEEN, Ur Squamous Epith Cells 0-5 SEEN, Amorphous Sediment 1+ PHOS, Urine Bacteria 1+, Urine Mucus 0 SEEN 02/18/23 05:11: WBC 9.0, RBC 3.68 L, Hgb 10.4 L, Hct 33.6 L, MCV 91.3, MCH 28.3, MCHC 31.0 L, RDW Std Deviation 52.7 H, RDW Coeff of Abdiel 15.9 H, Plt Count 247, MPV 10.5, Immature Gran % (Auto) 0.300, Neut % (Auto) 70.8 H, Lymph % (Auto) 13.2 L, [place] % (Auto) 15.0 H, Eos % (Auto) 0.4, Baso % (Auto) 0.3, Absolute Neuts (auto) 6.4, Absolute Lymphs (auto) 1.19, Nucleated RBC % 0, PT 29.1 H, INR 2.7, Sodium 141, Potassium 4.7, Chloride 109 H, Carbon Dioxide 29.0, Anion Gap 3 L, BUN 24 H, Creatinine 1.84 H, Estim Creat Clear Calc 37.36, Est GFR (MDRD) Af Amer 47 L, Est GFR (MDRD) Non-Af 39 L, BUN/Creatinine Ratio 13.0, Glucose 87, Calcium 8.3 L Micro: Microbiology 02/17/23 10:15 Urine, Clean Catch Urine Culture - Preliminary Gram negative wilber Radiography Diagnostic Testing: Radiology Impression Abdomen/Pelvis CT 02/17/23 12:10 IMPRESSION: 1. Interval development of prominent central compression fractures of the T12 and L1 vertebral bodies at the T12-L1 disc space level simulating Schmorl''s nodes but they do not appear acute. MRI of the thoracolumbar junction will help clarify if patient has debilitating back pain and kyphoplasty is a therapeutic consideration. 2. At least 2 simple cysts in the right kidney and one simple cyst in the left kidney. Multiple subcentimeter hypodense lesions in both kidneys are too small to confirm cystic or solid. They are unchanged when compared to 12/24/2022. 3. No suspicious acute abnormality in the abdomen and pelvis and no other additional findings or changes when compared to 12/24/2022. Electronically Signed: Juanjo Amin MD at 15:22 EST , Physical Exam Const alert, oriented x3 and no apparent distress Constitutional Narrative: Patient is morbidly obese General Appearance: cooperative and well developed Orientation / Consciousness: awake, oriented to person, oriented to place and oriented to time HEENT normocephalic, head/scalp atraumatic and moist oral mucous membranes Eyes PERRL, EOMs intact bilaterally and conjunctivae normal Neck supple, no JVD, thyroid normal and no carotid bruits General: trachea midline Resp normal respiratory effort, no retractions, no use of accessory muscles and clear to auscultation bilaterally Auscultation: Negative for rales, rhonchi or wheezes Cardio regular rate, regular rhythm, S1 normal heart sound, S2 normal heart sound, no murmurs, no rub and no gallops GI normal to inspection, nondistended, normoactive bowel sounds, soft to palpation, non-tender and non-distended Extremity no clubbing, cyanosis or edema Skin no rashes or lesions noted General Skin Exam: no breakdown Neuro oriented x3, CN's II-XII intact bilaterally, moves all extremities, no focal motor deficits and no sensory deficits noted Sensorium / Orientation: awake, alert, oriented to person, oriented to place and oriented to time Speech: speech normal Psych affect normal Assessment & Plan Assessment/Plan (1) Intractable low back pain: PLAN: Plan 1. Intractable lumbar pain secondary to suspected acute compression fracture of [id number] patient will have an MRI of his thoracic and lumbar spines performed tomorrow, spinal surgery will review these films and make recommendations based on the results. Patient will continue to receive IV pain meds #2 paroxysmal [id number] is on warfarin and metoprolol #3 hyperlipidemia-patient is on atorvastatin #4 degenerative disc disease of the lumbar spine-complicates care, medical course, recovery, and prognosis #5 essential hypertension-patient will remain on his present medication #6 morbid obesity-complicates care, medical course, recovery, and prognosis #7 coronary artery disease-this is being treated medically at this time Total clinical time spent by myself addressing the patient's medical issues, reviewing all of his data, and collaborating with the patient's care team: 35 minutes Charges/Coding Visit Charges Inpatient E&M: 90693 Subs Hosp L2
[2023-02-18] MEDS: Tamsulosin HCl 0.4 MG Capsule PO (17:31)
[2023-02-18] MEDS: Atorvastatin Calcium 80 MG Tablet PO (20:50)
[2023-02-18] MEDS: Mirtazapine 30 MG Tablet PO (20:51)
[2023-02-18 21:00] VITALS: BP 126/58; PULSE 58; RESP 18; TEMP 36.8; O2SAT 95
[2023-02-19 04:39] LABS: Anion Gap 6 (5-15); BUN 27 mg/dL (7-18); BUN/Creat Ratio 10.6 RATIO (10-20); Calcium,Total 8.3 mg/dL (8.5-10.1); Chloride 108 mmol/L (98-107); Creatinine, Serum 2.55 mg/dL (0.70-1.30); EST Glomerular Filtration Rate 27 mL/min (>60); Est Glom Filt Rate - Afr Amer 32 mL/min (>60); Estimated Creatinine Clearance 26.96 ml/min; Glucose 92 mg/dL (74-106); Potassium 4.5 mmol/L (3.5-5.1); Sodium Level 140 mmol/L (136-145)
[2023-02-19 04:49] LABS: Absolute Lymphocyte Count 0.96 X10^3/uL (0.83-4.51); Absolute Neutrophil Count 7.8 X10^3/uL (2.0-7.7); Basophil# 0.03 X10^3/uL; Basophil% 0.3 % (0-1); Eosinophil# 0.21 X10^3/uL; Eosinophils% 1.9 % (0-5); Hematocrit 33.1 % (40-54); Hemoglobin 10.2 g/dL (13.0-16.5); Lymphocyte # 0.96 X10^3/ul (0.83-4.51); Lymphocyte % 8.9 % (19-41); Mean Corp Hgb Conc 30.8 g/dL (32-36); Mean Corpuscular Hgb 28.3 pg (27.0-32.0); Mean Corpuscular Volume 91.7 fL (80-94); Mean Platelet Vol. 10.5 fl (6.2-12.0); Monocyte# 1.75 X10^3/uL; Monocyte% 16.2 % (0-10); NRBC Flagged by Analyzer 0 % (0-5); Neutrophil # 7.82 X10^3/uL (2.7-7.7); Neutrophil % 72.2 % (47-70); POSITIVE DIFFERENTIAL YES; Platelet Count 243 K/mm3 (150-450); RBC Distribution Width CV 16.2 % (11.6-14.6); Red Blood Count 3.61 M/mm3 (4.6-6.2); White Blood Count 10.8 K/mm3 (4.4-11.0)
[2023-02-19 04:56] LABS: International Normalized Ratio 3.2; Prothrombin Time (Protime)PT. 33.5 SECONDS (11.7-14.9)
[2023-02-19 05:00] VITALS: BP 140/53; PULSE 53; RESP 18; TEMP 37.2; O2SAT 93
[2023-02-19] MEDS: tiZANidine HCl 2 MG Tablet 4 MG PO ×3 (05:17→19:53)
[2023-02-19] MEDS: Acetaminophen 325 MG Tablet 650 MG PO ×3 (05:18→19:55)
[2023-02-19 06:00] VITALS: BMI 47.2
[2023-02-19 06:14] LABS: Differential Indicated SCAN CRITERIA MET
--- NOTE | 2023-02-19 08:00 | MRI_ITS ---
We are attempting to reach an attending provider to discuss findings. An addendum with communication details will be sent when the communication is complete. STUDY: MRI THORACIC SPINE WITHOUT CONTRAST REASON FOR EXAM: Male, 72 years old. ACUTE ON CHRONIC BACK PAIN TECHNIQUE: Standardized fat and water weighted pulse sequences were obtained in the sagittal and axial planes. COMPARISON: MRI of the lumbar spine dated February 19, 2023. CT of abdomen and pelvis dated October 27, 2021. CT of abdomen and pelvis dated December 24, 2022 FINDINGS: High-grade liquefaction and herniation of disc material into the overlying endplates of T12-L1 forming large Schmorl''s nodes intermixed with areas of cortical erosion and bony resorption is consistent with sequela of acute on chronic vertebral osteomyelitis and infectious discitis. A small subligamentous extruded focus of disc material and reactive fluid is present in the midline and left paracentral region of T12-L1 resulting in left lateral recess stenosis with nerve root compression and mild central canal stenosis. There is diffuse edema throughout the T12-L1 vertebral bodies with slight extension into the pedicles. Moderate edema is present in the paraspinous muscles at these levels with small microabscesses within the muscle fibers most prominent on the left measuring 1.07 and 1.02 cm respectively, see image #28/35 series 5. Normal kyphosis of the thoracic spine. There is no substantial scoliosis. T1-2, T2-3, T3-4, T4-5, T5-6, T6-7, T7-8, T8-9, T9-10, T10-11, T11-12: Mild to moderate multilevel disc space narrowing, endplate spurring/spondylosis throughout the thoracic spine. No posterior disc herniation or bulging is present. The central canal is normal above the T12-L1 level. No critical foraminal stenosis is demonstrated at any level. Predominance of red marrow elements. No lytic or blastic lesions are present. No fractures are seen. Normal visualized thoracic cord. Normal conus medullaris that terminates at the T12-L1 level. Remaining soft tissues are grossly unremarkable. MRI/Spine Thoracic (Routine) IMPRESSION: Osteomyelitis and infectious discitis at T12-L1 with paraspinal microabscesses within the muscle fibers at the same level 1. High-grade liquefaction and herniation of disc material into the overlying endplates of T12-L1 forming large Schmorl''s nodes intermixed with areas of cortical erosion and bony resorption is consistent with sequela of acute on chronic vertebral osteomyelitis and infectious discitis. A small subligamentous extruded focus of disc material and reactive fluid is present in the midline and left paracentral region of T12-L1 resulting in left lateral recess stenosis with nerve root compression and mild central canal stenosis. There is diffuse edema throughout the T12-L1 vertebral bodies with slight extension into the pedicles. 2. Moderate edema is present in the paraspinous muscles at these levels with small microabscesses within the muscle fibers most prominent on the left measuring 1.07 and 1.02 cm respectively, see image #28/35 series 5. Electronically Signed: Demarcus Meza MD at 16:20 EST ,
[2023-02-19 08:22] VITALS: BP 148/61; PULSE 55; RESP 18; TEMP 36.7; O2SAT 99
--- NOTE | 2023-02-19 09:00 | MRI_ITS ---
HISTORY: T12-L1 compression fracture -- Severe back pain. - TECHNIQUE: Multiplanar and multisequence MR images of the lumbar spine were obtained without intravenous contrast. 147 images. COMPARISON: None. FINDINGS: VERTEBRAE: Large amount of bone marrow edema in the T12 and L1 vertebral bodies with fluid signal extending from the intervertebral disc space into the T12 inferior and L1 superior endplates with mild loss of vertebral body height. 2.8 cm long left and central ventral epidural collection at T12-L1. Degenerative endplate changes noted at the other levels. ALIGNMENT: No anterior or posterior subluxation. CONUS: Normal morphology and position of the conus medullaris at T12-L1. INTERVERTEBRAL DISCS: Posterior disc bulge osteophyte complexes with facet arthropathy at multiple levels. T12-L1: Left ventral epidural collection superimposed on degenerative disc and facet disease resulting in mild central canal stenosis and left L1 nerve root impingement. L1-2: Mild central canal stenosis and bilateral foraminal narrowing. L2-3: Mild central canal stenosis and moderate bilateral foraminal narrowing.
[2023-02-19 09:08] LABS: Differential Comment SCANNED
--- NOTE | 2023-02-19 09:27 | PN.HOSP_ITS ---
Subjective Subjective Doing well, no issues overnight. Continues to have low back pain that appears to be mostly paraspinal on the right Objective Data Objective Data Vital Signs: Vital Signs Temp Pulse Resp BP Pulse Ox O2 Del Method 98.1 F 55 L 18 148/61 H 99 Room Air 02/19/23 08:22 02/19/23 08:22 02/19/23 08:22 02/19/23 08:22 02/19/23 08:22 02/19/23 08:27 Oxygen Delivery Method Room Air Weight: 318 lb 12.615 oz Body Mass Index (BMI) 47.2 Intake & Output: Intake and Output for Last 24 Hours 02/18/23 02/19/23 02/20/23 03:59 03:59 03:59 Intake Total 1067.5 / 1067.5 1508 / 1508 Output Total 150 / 150 725 / 725 Balance 917.5 / 917.5 783 / 783 Lab / Micro Data 02/19/23 03:30 02/19/23 03:30 Labs: Laboratory Results - last 24 hr 02/19/23 03:30: WBC 10.8, RBC 3.61 L, Hgb 10.2 L, Hct 33.1 L, MCV 91.7, MCH 28.3, MCHC 30.8 L, RDW Std Deviation 55.0 H, RDW Coeff of Abdiel 16.2 H, Plt Count 243, MPV 10.5, Immature Gran % (Auto) 0.500, Neut % (Auto) 72.2 H, Lymph % (Auto) 8.9 L, [place] % (Auto) 16.2 H, Eos % (Auto) 1.9, Baso % (Auto) 0.3, Absolute Neuts (auto) 7.8 H, Absolute Lymphs (auto) 0.96, Nucleated RBC % 0, Differential Comment SCANNED, PT 33.5 H, INR 3.2, Sodium 140, Potassium 4.5, Chloride 108 H, Carbon Dioxide 26.0, Anion Gap 6, BUN 27 H, Creatinine 2.55 H, Estim Creat Clear Calc 26.96, Est GFR (MDRD) Af Amer 32 L, Est GFR (MDRD) Non-Af 27 L, BUN/Creatinine Ratio 10.6, Glucose 92, Calcium 8.3 L Micro: Microbiology 02/17/23 10:15 Urine, Clean Catch Urine Culture - Preliminary Gram negative wilber Physical Exam Narrative General: Alert, Oriented x3, Cooperative, No apparent distress HEENT: Atraumatic, PERRLA, EOMI, Normocephalic Oral: Moist Mucosa Neck: Supple, No JVD Lungs: Clear to auscultation, Normal air movement, No rhonchi, No wheeze, No rales Cardiovascular: Regular rate, Regular Rhythm, Normal S1, Normal S2, No murmurs Abdomen: Soft, Non Tender, Non-Distended, No Hepato-splenomegaly Extremities: No edema, Capillary Refill Less than 3 Seconds Skin: No rashes, No breakdown Musculoskeletal: No Tenderness to Palpation of Joints or Extremities Neurological: Cranial nerves II-XII grossly intact, Motor Exam 5/5 strength throughout, Sensory exam intact to light touch and pain Psych/Mental Status: Normal Affect, Appropriate Assessment & Plan Assessment/Plan (1) Intractable low back pain: PLAN: Plan 1. Intractable lumbar pain secondary to acute compression fracture of T12- L1/chronic degenerative disc disease of the lumbar spine/morbid obesity ? Plan for thoracic and lumbar MRIs per orthopedic surgery's evaluation ? Further recommendations after MRI results ? Continue with pain medication he states that he still has a lot of difficulty ambulating so he may need discharge to a residential if no direct intervention to be achieved ? BMI of 47.1, discussed lifestyle modifications ? Continue with tizanidine ? PT/OT 2. A-fib/HLD/HTN/CAD ? Blood pressure stable ? Continue with his home medications ? We will monitor make adjustments as necessary ? Continue with Coumadin, INR 3.2 3. GERD ? Stable ? Continue with PPI 4. Anxiety/depression ? Stable ? Continue with his home medications DVT: Coumadin Charges/Coding Visit Charges Inpatient E&M: 88853 Subs Hosp L2
[2023-02-19 10:29] VITALS: PULSE 56; O2SAT 96
[2023-02-19] MEDS: oxyCODONE 5 MG Tablet PO ×2 (10:32→19:54)
[2023-02-19] MEDS: Pantoprazole Sodium 20 MG Tablet PO (10:33)
[2023-02-19] MEDS: Ranolazine 500 MG Tablet 1000 MG PO ×2 (10:33→19:53)
[2023-02-19] MEDS: Isosorbide Mononitrate 60 MG Tablet PO ×2 (10:33→19:53)
[2023-02-19] MEDS: Citalopram 20 MG Tablet PO (10:33)
[2023-02-19] MEDS: Allopurinol 300 MG Tablet PO (10:33)
[2023-02-19] MEDS: Aspirin E.C. 81 MG Tablet PO (10:34)
[2023-02-19] MEDS: Hydroxychloroquine 200 MG Tablet PO ×2 (10:34→19:53)
[2023-02-19] MEDS: Meloxicam 7.5 MG Tablet PO (10:34)
[2023-02-19 11:40] LABS: Erythrocyte Sedimentation Rate 66 mm/hr (0-20)
--- NOTE | 2023-02-19 12:20 | CASEMGMT ---
CHUY PENALOZA Assessment: Face to Face with pt for initial transition planning/care coordination assessment. RN CM introduced self and role at [facility], pt voices understanding and consents to assessment. Patient sitting in bed. present at bedside, patient agreeable to assessment with present. Pt is A&O x4 and answers all questions appropriately at this time. Care providers, pharmacy, and demographics verified/updated. Admitting Dx:Acute on chronic back pain, T12-L1 Compression PCP:Dr. Cornell Gunter Specialists:-rheumatology, Dr. Chang-cardiology, Gordon Swanson-nephrology, Dr. Garvin-pulmonology, Dr. Long-cardiology, Dr. Valenzuela-urology. Preferred Pharmacy:[facility]. Insurance:Medicare Part A and B Prescription Benefit: yes LNOK:Kanwal Montiel, . Living Arrangements: Pt lives with . Patient independent with ADLs prior to admission. Patient lives in single story home with 2 steps to enter. Transportation: Pt drives self and denies concerns with transportation. DME:patient has rollator walker, wheeled walker, cane, CPAP, walk in shower and elevated toilet. HHC/SNF:Patient has had home therapy in past after knee surgery, does not recall agency. Patient also with previous TCU stay post surgery. Pt states no concerns with going home at time of dc. Pt states no further concerns/needs. CM to follow. Advised pt to ask CM if any further question/concerns/needs arise, voices understanding. Pt Goal:Unsure of discharge needs at this time. Plan:RN CA will follow patient and monitor for any discharge needs/concerns.
[2023-02-19] MEDS: Phytonadione (Vit K1) 5 MG TABLET PO (13:28)
[2023-02-19 14:38] VITALS: BP 111/52; PULSE 53; RESP 18; TEMP 36.8; O2SAT 96
--- NOTE | 2023-02-19 14:38 | PCM.CONS.GEN ---
Assessment & Plan Assessment/Plan (1) Discitis of lumbar region: PLAN: MRI shows T12-L1 discitis with developed epidural phlegmon/abscess. Bcx pending. Will see if can get IR aspiration of disc done. Will start vanc/ceftriaxone. Did have one ucx 10/2022 with pseudomonas. Ucx 02/17 with heavy growth of ecoli. Will follow, thank you, d/w Dr. To and Dr. Phipps HPI Consult Data Date of Consult: 02/19/23 HPI Narrative Reason for Consultation: discitis HPI Narrative: GUSTAVO HARTMAN, is a 72 M with chronic low back pain, woke up 02/17 with severe R sided lumbar back pain with some radiation down LLE. No focal weakness, no fever or chills. No known inciting event. Has some increased urinary frequency, no dysuria. Came to ED, admitted, CT and MRI done. Dr. Phipps consulted. Pain about the same today. Full ROS performed and neg except as noted above. 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 Morbid obesity LILI on CPAP Paroxysmal atrial fibrillation Polyarthritis Pure hypercholesterolemia Viral syndrome Wears glasses Home Medications citalopram 20 mg tablet 20 mg PO DAILY MOOD 09/21/14 [History Last Taken 02/16/23] multivitamin 1 tab PO DAILY SUPPLEMENT 09/21/14 [History Last Taken 02/16/23] esomeprazole magnesium 20 mg capsule,delayed release 20 mg PO DAILY 05/18/19 [History Last Taken 02/16/23] tamsulosin 0.4 mg capsule 0.4 mg PO DAILY 05/18/19 [History Last Taken 02/16/23] cod liver oil 1 cap PO DAILY arthritis 02/03/20 [History Last Taken 02/16/23] turmeric 400 mg capsule 450 mg PO DAILY arthritis 02/03/20 [History Last Taken 02/16/23] hydroxychloroquine 200 mg tablet 200 mg PO BID arthritis 04/25/21 [History Last Taken 02/16/23] Handicap Placard #1 ea 07/05/21 [Rx Last Taken Unknown] mirtazapine 30 mg tablet 30 mg PO QHS 10/01/22 [History Last Taken 02/16/23] atorvastatin 80 mg tablet See Rx Instructions .Route .COMPLEX #90 tabs 11/21/22 [Rx Last Taken 02/16/23] warfarin 4 mg tablet 4 mg PO .COMPLEX #60 tabs 01/23/23 [Rx Last Taken 02/16/23] allopurinol 300 mg tablet 300 mg PO DAILY 02/17/23 [History Last Taken 02/16/23] aspirin 81 mg tablet,delayed release (Adult Aspirin Regimen) 81 mg PO DAILY 02/17/23 [History Last Taken 02/16/23] cyclobenzaprine 10 mg tablet 10 mg PO Q8H PRN muscle spasm 02/17/23 [History Last Taken 02/16/23] isosorbide mononitrate 60 mg tablet,extended release 24 hr 60 mg PO BID 02/17/23 [History Last Taken 02/16/23] meloxicam 7.5 mg tablet 7.5 mg PO DAILY 02/17/23 [History Last Taken 02/16/23] metoprolol succinate 25 mg tablet,extended release 24 hr 25 mg PO DAILY 02/17/23 [History Last Taken 02/16/23] nitroglycerin 0.4 mg sublingual tablet 0.4 mg sublingual Q5M PRN chest pain 02/17/23 [History Last Taken Unknown] ranolazine 500 mg tablet,extended release,12 hr (Ranexa) 1,000 mg PO BID 02/17/23 [History Last Taken 02/16/23] Allergy/AdvReac Type Severity Reaction Status Date / Time bee venom protein (honey bee) Allergy Hives Verified 02/17/23 11:37 amlodipine AdvReac Severe severe Verified 02/17/23 11:37 swelling in hands and feet spider venom AdvReac Other Verified 02/17/23 11:37 Family History Father Heart disease Diabetes CAD (coronary artery disease) History of coronary artery bypass surgery Cardiac pacemaker in situ Pure hypercholesterolemia Surgical History H/O umbilical hernia repair History of cystoscopy History of inguinal hernia repair, bilateral History of knee surgery History of total right knee replacement Social History household members: spouse Smoking Status: Former smoker how long ago did patient quit smokin alcohol intake: never substance use type: does not use caffeine: Yes Type: tea Number of servings: 2 Physical Exam Const alert, oriented x3 and no apparent distress General Appearance: cooperative HEENT normocephalic and head/scalp atraumatic Eyes PERRL and EOMs intact bilaterally Neck supple and No nodes Resp normal air movement Cardio regular rate and regular rhythm GI soft to palpation, non-tender and non-distended Extremity General Extremity: Negative for edema Skin no rashes or lesions noted Neuro CN's II-XII intact bilaterally Neuro Narrative: moving all exts Lab / Micro Data Attestation: I reviewed the patient's lab results. 02/19/23 03:30 02/19/23 03:30 Labs: Laboratory Results - last 24 hr 02/19/23 03:30: WBC 10.8, RBC 3.61 L, Hgb 10.2 L, Hct 33.1 L, MCV 91.7, MCH 28.3, MCHC 30.8 L, RDW Std Deviation 55.0 H, RDW Coeff of Abdiel 16.2 H, Plt Count 243, MPV 10.5, Immature Gran % (Auto) 0.500, Neut % (Auto) 72.2 H, Lymph % (Auto) 8.9 L, [place] % (Auto) 16.2 H, Eos % (Auto) 1.9, Baso % (Auto) 0.3, Absolute Neuts (auto) 7.8 H, Absolute Lymphs (auto) 0.96, Nucleated RBC % 0, Differential Comment SCANNED, ESR 66 H, PT 33.5 H, INR 3.2, Sodium 140, Potassium 4.5, Chloride 108 H, Carbon Dioxide 26.0, Anion Gap 6, BUN 27 H, Creatinine 2.55 H, Estim Creat Clear Calc 26.96, Est GFR (MDRD) Af Amer 32 L, Est GFR (MDRD) Non-Af 27 L, BUN/Creatinine Ratio 10.6, Glucose 92, Calcium 8.3 L, C-React Prot Ext Range 106.00 H Micro: Microbiology 02/17/23 10:15 Urine, Clean Catch Urine Culture - Final Escherichia coli Imagaing Radiology Impression Lumbar Spine MRI 02/19/23 09:00 IMPRESSION: Abnormal bone marrow and intervertebral disc signal at T12-L1 with endplate erosion and surrounding edema concerning for osteomyelitis-discitis with mild ventral epidural phlegmon or abscess resulting in mild spinal canal stenosis and left nerve root impingement. Postcontrast imaging may be helpful. Moderate multilevel degenerative disc disease as above. Electronically Signed: Angela David MD at 10:27 EST ,
[2023-02-19] MEDS: 0.9% Normal Saline (250mL Bag) 250 ML 15 ML IV (14:43)
[2023-02-19] MEDS: 0.9% Saline Lock 10 ML Syringe IV (14:44)
[2023-02-19] MEDS: Ceftriaxone 2 GM in 0.9% Normal Saline (50mL MB+) 50 ML IV ×2 (14:44→19:54)
[2023-02-19] MEDS: Vancomycin HCl 2,000 MG in 0.9% Normal Saline (500mL Bag) 500 ML 250 MG IV (15:41)
--- NOTE | 2023-02-19 16:04 | PCM.RX.CS ---
Consult Antibiotic Management Pharmacy has been consulted to manage selected antiobiotic: Vancomycin Type of Intervention Type of Consult: New start Suspected Infection Suspected Infection: Other (DISCITIS) Labs Labs: Sodium 140 mmol/L (136-145) 02/19/23 03:30 Potassium 4.5 mmol/L (3.5-5.1) 02/19/23 03:30 Chloride 108 mmol/L (98-107) H 02/19/23 03:30 Carbon Dioxide 26.0 mmol/L (21.0-32.0) 02/19/23 03:30 Anion Gap 6 (5-15) 02/19/23 03:30 BUN 27 mg/dL (7-18) H 02/19/23 03:30 Creatinine 2.55 mg/dL (0.70-1.30) H 02/19/23 03:30 Est GFR (MDRD) Af Amer 32 mL/min (>60) L 02/19/23 03:30 Est GFR (MDRD) Non-Af 27 mL/min (>60) L 02/19/23 03:30 BUN/Creatinine Ratio 10.6 RATIO (10-20) 02/19/23 03:30 Glucose 92 mg/dL (74-106) 02/19/23 03:30 Microbiology Microbiology: Microbiology 02/17/23 10:15 Urine, Clean Catch Urine Culture - Final Escherichia coli Pharmacy Plan for Drug Dosing Pharmacy Plan for Drug Dosing: NEW START IV VANCOMYCIN Consulting Physician: HARLEEN Indication: DISCITIS Goal Trough: 15-20 MG/GL SrCr: 2.55 MG/DL CrCl: 38.2 ML/MIN (ADJUSTED BW) Comments: LOADING DOSE OF 2000MG GIVEN 02/19 @ 1541 Vancomycin Dose: WILL START 1500MG Q24H 02/20 @ 1600 AND GET A TROUGH PRIOR TO THE 3RD TOTAL DOSE. Pending Level: 02/21 @ 1530 Pharmacy Service will continue to monitor and adjust dosing as required.
[2023-02-19] MEDS: Tamsulosin HCl 0.4 MG Capsule PO (17:22)
--- NOTE | 2023-02-19 18:00 | NURSING ---
1746 per [facility] radiology female- states MD from there needs to speak directly to pt RN. Said RN waiting on telephone, female from [facility] states that [facility] MD has already signed out and requests that said nurse notify patients MD to review the thoracic MRI results. female asks if report is available to be seen, informed female report is in [facility]. Informed female that said nurse will notify Dr. Phipps and Dr. Hunt as per their request to review MRI.
[2023-02-19] MEDS: Mirtazapine 30 MG Tablet PO (19:54)
[2023-02-19] MEDS: Atorvastatin Calcium 80 MG Tablet PO (19:54)
[2023-02-19 20:05] VITALS: BP 116/59; PULSE 58; RESP 18; TEMP 37; O2SAT 97
[2023-02-20] VITALS (20 sets, daily range): BP systolic 83–157; BP diastolic 31–68; PULSE 53–62; RESP 16–20; TEMP 36.2–37; O2SAT 94–98; BMI 47.2
--- NOTE | 2023-02-20 | ASPIGT_PTH ---
PATIENT: GUSTAVO HARTMAN LOC: MS3 U#:[id number] AGE/SX: 72/M ROOM: [facility] RE02/17/[address]: Dr. Salvador To MD : 1950 BED: 1 DIS: 02/22/2023 SPEC #: [id number] RECD: 02/20/23 10:46 STATUS: SEBASTIÁN REElliot #: [id number] JESSE: 02/20/23 00:[address]: Salvador To DEPT: SURGICAL PATHOLOGY RECD BY: Kristi Michael ENTERED: 02/20/23 10:46 SP TYPE: ASP RAD OTHR DR: MD Dr. Hal Umana DO Dr. Mark Tereletsky, DO Dr. Prakash Chand, MD Dr. Paul Nielsen, MD Dr. Robert Leininger, MD Tissues: Vertebra, NOS Procedures: FNA Specimen Adequacy Special Stain Group II Surgery Specimen Level IV Imprint (control) HEADER OPERATION: CT-guided left T12-L1 bone biopsy PRE-OP DIAGNOSIS: Mass - bone destruction TISSUE SUBMITTED: Bone mass 18-gauge MICROSCOPIC DIAGNOSIS Bone mass, lytic lesion, T12-L1, core biopsy: Fragments of fibrous tissue with acute inflammation and fibrinous material. Negative for malignancy. See comment. Na 02/21/2023 COMMENT The specimen is evaluated at the time of biopsy by Dr. Lopez. Immediate Evaluation = Negative for malignant cells. Acute inflammation. Correlation with clinical, culture studies and appropriate follow up are necessary. Report of culture studies will be reported as an addendum. MICROSCOPIC DESCRIPTION Slides are reviewed. GROSS DESCRIPTION Received in fixative is one container labeled with the patient's name and designated bone mass biopsy. The specimen consists of multiple irregular fragments of florentino soft tissue that in aggregate measure 0.5 x 0.1 x 0.1 cm. The specimen is totally submitted in one cassette. Two touch imprints are prepared at the time of core biopsy. A specimen is also taken for culture study / Na 02/20/2023 TC:2 CPT: 04778, 89914
[2023-02-20 05:04] LABS: Absolute Lymphocyte Count 0.89 X10^3/uL (0.83-4.51); Absolute Neutrophil Count 5.1 X10^3/uL (2.0-7.7); Basophil# 0.02 X10^3/uL; Basophil% 0.3 % (0-1); Eosinophil# 0.35 X10^3/uL; Eosinophils% 4.6 % (0-5); Hematocrit 32.6 % (40-54); Hemoglobin 9.8 g/dL (13.0-16.5); Lymphocyte # 0.89 X10^3/ul (0.83-4.51); Lymphocyte % 11.6 % (19-41); Mean Corp Hgb Conc 30.1 g/dL (32-36); Mean Corpuscular Hgb 27.8 pg (27.0-32.0); Mean Corpuscular Volume 92.6 fL (80-94); Mean Platelet Vol. 10.2 fl (6.2-12.0); Monocyte# 1.32 X10^3/uL; Monocyte% 17.2 % (0-10); NRBC Flagged by Analyzer 0 % (0-5); Neutrophil # 5.05 X10^3/uL (2.7-7.7); Neutrophil % 65.8 % (47-70); Platelet Count 224 K/mm3 (150-450); RBC Distribution Width SD 54.9 fl (35.1-43.9); Red Blood Count 3.52 M/mm3 (4.6-6.2); White Blood Count 7.7 K/mm3 (4.4-11.0)
[2023-02-20 05:36] LABS: International Normalized Ratio 1.9; Prothrombin Time (Protime)PT. 22.2 SECONDS (11.7-14.9)
[2023-02-20 05:40] LABS: Anion Gap 5 (5-15); BUN 30 mg/dL (7-18); BUN/Creat Ratio 13.7 RATIO (10-20); Calcium,Total 8.1 mg/dL (8.5-10.1); Chloride 110 mmol/L (98-107); Creatinine, Serum 2.19 mg/dL (0.70-1.30); EST Glomerular Filtration Rate 32 mL/min (>60); Est Glom Filt Rate - Afr Amer 38 mL/min (>60); Estimated Creatinine Clearance 31.39 ml/min; Glucose 102 mg/dL (74-106); Potassium 4.6 mmol/L (3.5-5.1); Sodium Level 140 mmol/L (136-145)
[2023-02-20] MEDS: oxyCODONE 5 MG Tablet PO ×3 (06:25→20:29)
[2023-02-20] MEDS: tiZANidine HCl 2 MG Tablet 4 MG PO ×3 (06:25→20:30)
[2023-02-20] MEDS: Acetaminophen 325 MG Tablet 650 MG PO ×2 (06:25→20:29)
[2023-02-20] MEDS: 0.9% Normal Saline (250mL Bag) 250 ML 15 ML IV ×2 (06:47→08:54)
[2023-02-20] MEDS: Midazolam 2 MG/2 ML Syringe IV ×2 (08:55→09:23)
[2023-02-20] MEDS: fentaNYL 100 MCG/2 ML Ampul IV ×2 (08:57→09:24)
[2023-02-20] MEDS: Lidocaine 2% (20 ml mdv) 20 ML Vial INFILT (09:14)
--- NOTE | 2023-02-20 10:16 | PN.HOSP_ITS ---
Subjective Subjective Continue to have back pain, plan for biopsy of his osteomyelitis/discitis as found on MRI yesterday Objective Data Objective Data Vital Signs: Vital Signs Temp Pulse Resp BP Pulse Ox O2 Del Method O2 Flow Rate 97.4 F L 55 L 18 153/68 H 96 Room Air 2 02/20/23 10:13 02/20/23 10:13 02/20/23 10:13 02/20/23 10:13 02/20/23 10:13 02/20/23 10:13 02/20/23 09:29 Oxygen Flow Rate (L/min) 2 Oxygen Delivery Method Room Air Weight: 318 lb 12.615 oz Body Mass Index (BMI) 47.2 Intake & Output: Intake and Output for Last 24 Hours 02/19/23 02/20/23 02/21/23 03:59 03:59 03:59 Intake Total 1508 / 1508 648.00 / 648.00 278 / 278 Output Total 725 / 725 400 / 400 Balance 783 / 783 248.00 / 248.00 278 / 278 Lab / Micro Data 02/20/23 04:30 02/20/23 04:30 Labs: Laboratory Results - last 24 hr 02/19/23 03:30: ESR 66 H, C-React Prot Ext Range 106.00 H 02/20/23 04:30: WBC 7.7, RBC 3.52 L, Hgb 9.8 L, Hct 32.6 L, MCV 92.6, MCH 27.8, MCHC 30.1 L, RDW Std Deviation 54.9 H, RDW Coeff of Abdiel 16.0 H, Plt Count 224, MPV 10.2, Immature Gran % (Auto) 0.500, Neut % (Auto) 65.8, Lymph % (Auto) 11.6 L, [place] % (Auto) 17.2 H, Eos % (Auto) 4.6, Baso % (Auto) 0.3, Absolute Neuts (auto) 5.1, Absolute Lymphs (auto) 0.89, Nucleated RBC % 0, PT 22.2 H, INR 1.9, Sodium 140, Potassium 4.6, Chloride 110 H, Carbon Dioxide 25.0, Anion Gap 5, BUN 30 H, Creatinine 2.19 H, Estim Creat Clear Calc 31.39, Est GFR (MDRD) Af Amer 38 L, Est GFR (MDRD) Non-Af 32 L, BUN/Creatinine Ratio 13.7, Glucose 102, Calcium 8.1 L Micro: Microbiology 02/17/23 10:15 Urine, Clean Catch Urine Culture - Final Escherichia coli Radiography Diagnostic Testing: Radiology Impression Thoracic Spine MRI 02/19/23 08:00 IMPRESSION: Osteomyelitis and infectious discitis at T12-L1 with paraspinal microabscesses within the muscle fibers at the same level 1. High-grade liquefaction and herniation of disc material into the overlying endplates of T12-L1 forming large Schmorl''s nodes intermixed with areas of cortical erosion and bony resorption is consistent with sequela of acute on chronic vertebral osteomyelitis and infectious discitis. A small subligamentous extruded focus of disc material and reactive fluid is present in the midline and left paracentral region of T12-L1 resulting in left lateral recess stenosis with nerve root compression and mild central canal stenosis. There is diffuse edema throughout the T12-L1 vertebral bodies with slight extension into the pedicles. 2. Moderate edema is present in the paraspinous muscles at these levels with small microabscesses within the muscle fibers most prominent on the left measuring 1.07 and 1.02 cm respectively, see image #28/35 series 5. Electronically Signed: Demarcus Meza MD at 16:20 EST Reading Location ID and State: [address] [place] [address] , Service support , ADDENDUM: 02/19/23 [id number] IMPRESSION: Osteomyelitis and infectious discitis at T12-L1 with paraspinal microabscesses within the muscle fibers at the same level 1. High-grade liquefaction and herniation of disc material into the overlying endplates of T12-L1 forming large Schmorl''s nodes intermixed with areas of cortical erosion and bony resorption is consistent with sequela of acute on chronic vertebral osteomyelitis and infectious discitis. A small subligamentous extruded focus of disc material and reactive fluid is present in the midline and left paracentral region of T12-L1 resulting in left lateral recess stenosis with nerve root compression and mild central canal stenosis. There is diffuse edema throughout the T12-L1 vertebral bodies with slight extension into the pedicles. 2. Moderate edema is present in the paraspinous muscles at these levels with small microabscesses within the muscle fibers most prominent on the left measuring 1.07 and 1.02 cm respectively, see image #28/35 series 5. N.B. : Rosa Nicolas RN, confirmed on 02/19/2023 17:46:33 (ET) that the referring physician received the results and does not require a verbal communication. Electronically Signed: Demarcus Meza MD at 16:20 EST , Lumbar Spine MRI 02/19/23 09:00 IMPRESSION: Abnormal bone marrow and intervertebral disc signal at T12-L1 with endplate erosion and surrounding edema concerning for osteomyelitis-discitis with mild ventral epidural phlegmon or abscess resulting in mild spinal canal stenosis and left nerve root impingement. Postcontrast imaging may be helpful. Moderate multilevel degenerative disc disease as above. Electronically Signed: Angela David MD at 10:27 EST , Physical Exam Narrative General: Alert, Oriented x3, Cooperative, No apparent distress HEENT: Atraumatic, PERRLA, EOMI, Normocephalic Oral: Moist Mucosa Neck: Supple, No JVD Lungs: Clear to auscultation, Normal air movement, No rhonchi, No wheeze, No rales Cardiovascular: Regular rate, Regular Rhythm, Normal S1, Normal S2, No murmurs Abdomen: Soft, Non Tender, Non-Distended, No Hepato-splenomegaly Extremities: No edema, Capillary Refill Less than 3 Seconds Skin: No rashes, No breakdown Musculoskeletal: No Tenderness to Palpation of Joints or Extremities Neurological: Cranial nerves II-XII grossly intact, Motor Exam 5/5 strength thr oughout, Sensory exam intact to light touch and pain Psych/Mental Status: Normal Affect, Appropriate Assessment & Plan Assessment/Plan (1) Intractable low back pain: PLAN: Plan 1. Intractable lumbar pain secondary to acute compression fracture of T12-L1 in the setting of spinal osteomyelitis and discitis/chronic degenerative disc disease of the lumbar spine/morbid obesity ?Both thoracic and lumbar MRI demonstrate osteomyelitis and discitis at the T12- L1, the thoracic MRI does not comment on any possibility of an epidural abscess and discussion with spine surgery does not indicate a need for intervention at this time we did consult infectious disease continue with IV antibiotics ? Will plan for CT-guided biopsy hopefully of an abscess in the paraspinous muscle for culture ? Continue with pain medication he states that he still has a lot of difficulty ambulating so he may need discharge to a care home if no direct intervention to be achieved ? BMI of 47.1, discussed lifestyle modifications ? Continue with tizanidine ? PT/OT 2. A-fib/HLD/HTN/CAD ? Blood pressure stable ? Continue with his home medications ? We will monitor make adjustments as necessary ?Held his Coumadin secondary to the need for possible biopsy and did give a dose of vitamin K INR today is 1.9 can restart Coumadin tomorrow after 24 hours postprocedure 3. GERD ? Stable ? Continue with PPI 4. Anxiety/depression ? Stable ? Continue with his home medications DVT: Coumadin Charges/Coding Visit Charges Inpatient E&M: 09525 Subs Hosp L2
[2023-02-20] MEDS: Isosorbide Mononitrate 60 MG Tablet PO ×2 (10:20→20:31)
[2023-02-20] MEDS: Citalopram 20 MG Tablet PO (10:20)
[2023-02-20] MEDS: Pantoprazole Sodium 20 MG Tablet PO (10:20)
[2023-02-20] MEDS: Allopurinol 300 MG Tablet PO (10:20)
[2023-02-20] MEDS: Senna/Docusate Sodium 1 Tablet 2 TABLET PO ×2 (10:20→20:30)
[2023-02-20] MEDS: 0.9% Saline Lock 10 ML Syringe IV (10:20)
[2023-02-20] MEDS: Ranolazine 500 MG Tablet 1000 MG PO ×2 (10:22→20:30)
[2023-02-20] MEDS: Hydroxychloroquine 200 MG Tablet PO ×2 (10:22→20:31)
[2023-02-20] MEDS: Meloxicam 7.5 MG Tablet PO (10:22)
[2023-02-20] MEDS: Ceftriaxone 2 GM in 0.9% Normal Saline (50mL MB+) 50 ML IV ×2 (10:23→20:35)
[2023-02-20] MEDS: Multivitamins,Therapeutic Tablet 1 TABLET PO (10:23)
--- NOTE | 2023-02-20 11:03 | PCM.OP.PRO ---
Procedure Report Date of Procedure: 02/20/23 Assessment & Plan Assessment/Plan (1) Discitis of lumbar region: PLAN: PROCEDURE: CT GUIDED CORE NEEDLE BIOPSY WITH CULTURE OF L1 ORDERING PROVIDER: Dr. To INDICATION: Male, 72 years old. Lumbar discitis. PROVIDER: LORENA Arellano CONSENT: Written informed consent was obtained having explained the risks, benefits and alternatives in detail with the patient who accepted the risks and agreed to proceed. Laboratory review and clinical assessment was performed. PRE-PROCEDURE SEDATION ASSESSMENT: Current history and physical dictated by referring physician and reviewed. No clinical changes since date of exam. Patient has an ASA Class of 2. PROCEDURAL SEDATION PROTOCOL: The Drugs used were: 3 mg Versed, IV, and 75 mcg Fentanyl, IV. The sedation time was: 30 minutes, starting at 8:55 AM and terminated at 9:25 AM. The procedural sedation protocol was independently monitored by the department nurse. RADIATION DOSAGE (If Supplied By Facility): CTDIvol = 21.02 mGy, DLP = 712.20 mGycm Individualized dose optimization techniques were used for this CT. TECHNIQUE: The patient was placed in a prone position. A noncontrast CT was performed to localize the area of discitis ON the left side of the L1 vertebrae. The skin surface was prepped and draped in a sterile fashion. 2% lidocaine was used for local anesthesia. Using CT guidance, a 18-gauge coaxial biopsy device was advanced to the periphery of the lesion. A total of 5 core specimens were obtained. Specimens were microscopically reviewed by pathology in the CT suite and placed in formalin solution. Cultures were also obtained. A sterile occlusive dressing was applied to the biopsy site. The patient tolerated the procedure well. IMPRESSION: 1. CT directed core needle biopsy of L1 vertebrae with culture using CT image guidance with image documentation as described. Pathology results are pending. 2. Procedural Sedation protocol utilized with independent monitoring by the department nurse. Procedures Radiology Radiology CT Procedures: 54602 Biopsy Bone Marrow (bone biopsy with culture)
[2023-02-20] MEDS: Vancomycin HCl 1,500 MG in 0.9% Normal Saline (500mL Bag) 500 ML 250 MG IV (15:44)
[2023-02-20] MEDS: Tamsulosin HCl 0.4 MG Capsule PO (17:06)
[2023-02-20] MEDS: Atorvastatin Calcium 80 MG Tablet PO (20:30)
[2023-02-20] MEDS: Mirtazapine 30 MG Tablet PO (20:30)
[2023-02-21 05:15] VITALS: BMI 47.1
[2023-02-21] MEDS: tiZANidine HCl 2 MG Tablet 4 MG PO ×3 (05:21→20:49)
[2023-02-21 05:31] VITALS: BP 142/61; PULSE 58; RESP 18; TEMP 37; O2SAT 96
[2023-02-21 05:42] LABS: Absolute Lymphocyte Count 0.95 X10^3/uL (0.83-4.51); Basophil# 0.04 X10^3/uL; Basophil% 0.5 % (0-1); Eosinophils% 5.3 % (0-5); Hematocrit 32.3 % (40-54); Hemoglobin 10.1 g/dL (13.0-16.5); Lymphocyte # 0.95 X10^3/ul (0.83-4.51); Lymphocyte % 12.5 % (19-41); Mean Corp Hgb Conc 31.3 g/dL (32-36); Mean Corpuscular Hgb 28.7 pg (27.0-32.0); Mean Corpuscular Volume 91.8 fL (80-94); Mean Platelet Vol. 9.8 fl (6.2-12.0); Monocyte# 1.19 X10^3/uL; Monocyte% 15.7 % (0-10); NRBC Flagged by Analyzer 0 % (0-5); Neutrophil # 4.98 X10^3/uL (2.7-7.7); Neutrophil % 65.5 % (47-70); Platelet Count 199 K/mm3 (150-450); RBC Distribution Width CV 15.9 % (11.6-14.6); RBC Distribution Width SD 53.5 fl (35.1-43.9); Red Blood Count 3.52 M/mm3 (4.6-6.2); White Blood Count 7.6 K/mm3 (4.4-11.0)
[2023-02-21 06:22] LABS: International Normalized Ratio 1.4; Prothrombin Time (Protime)PT. 17.5 SECONDS (11.7-14.9)
[2023-02-21 06:36] LABS: Anion Gap 3 (5-15); BUN 21 mg/dL (7-18); BUN/Creat Ratio 10.8 RATIO (10-20); Calcium,Total 8.5 mg/dL (8.5-10.1); Chloride 110 mmol/L (98-107); Creatinine, Serum 1.94 mg/dL (0.70-1.30); EST Glomerular Filtration Rate 37 mL/min (>60); Est Glom Filt Rate - Afr Amer 44 mL/min (>60); Estimated Creatinine Clearance 35.43 ml/min; Glucose 88 mg/dL (74-106); Potassium 4.4 mmol/L (3.5-5.1); Sodium Level 140 mmol/L (136-145)
[2023-02-21 09:00] VITALS: BP 137/80; PULSE 56; RESP 18; TEMP 36.8; O2SAT 96
[2023-02-21] MEDS: Ranolazine 500 MG Tablet 1000 MG PO ×2 (09:46→20:49)
[2023-02-21] MEDS: Citalopram 20 MG Tablet PO (09:46)
[2023-02-21] MEDS: Multivitamins,Therapeutic Tablet 1 TABLET PO (09:46)
[2023-02-21] MEDS: Isosorbide Mononitrate 60 MG Tablet PO ×2 (09:46→20:49)
[2023-02-21] MEDS: Meloxicam 7.5 MG Tablet PO (09:47)
[2023-02-21] MEDS: Allopurinol 300 MG Tablet PO (09:47)
[2023-02-21] MEDS: Pantoprazole Sodium 20 MG Tablet PO (09:49)
[2023-02-21] MEDS: Senna/Docusate Sodium 1 Tablet 2 TABLET PO ×2 (09:49→20:51)
[2023-02-21] MEDS: Hydroxychloroquine 200 MG Tablet PO ×2 (09:49→20:50)
[2023-02-21] MEDS: Ceftriaxone 2 GM in 0.9% Normal Saline (50mL MB+) 50 ML IV ×2 (09:50→20:48)
[2023-02-21] MEDS: Aspirin E.C. 81 MG Tablet PO (09:50)
[2023-02-21 11:05] VITALS: PULSE 56
--- NOTE | 2023-02-21 11:35 | PN.HOSP_ITS ---
Subjective Subjective Back pain is improving, and he remains neurologically intact. Objective Data Objective Data Vital Signs: Vital Signs Temp Pulse Resp BP Pulse Ox O2 Del Method O2 Flow Rate 98.3 F 56 L 18 137/80 H 96 Room Air 2 02/21/23 09:00 02/21/23 11:05 02/21/23 09:00 02/21/23 09:00 02/21/23 09:00 02/21/23 09:00 02/20/23 09:29 Oxygen Flow Rate (L/min) 2 Oxygen Delivery Method Room Air Weight: 318 lb 5.56 oz Body Mass Index (BMI) 47.1 Intake & Output: Intake and Output for Last 24 Hours 02/20/23 02/21/23 02/22/23 03:59 03:59 03:59 Intake Total 648.00 / 648.00 986.50 / 986.50 158.5 / 158.5 Output Total 400 / 400 300 / 300 500 / 500 Balance 248.00 / 248.00 686.50 / 686.50 -341.5 / -341.5 Lab / Micro Data 02/21/23 05:28 02/21/23 05:28 Labs: Laboratory Results - last 24 hr 02/21/23 05:28: WBC 7.6, RBC 3.52 L, Hgb 10.1 L, Hct 32.3 L, MCV 91.8, MCH 28.7, MCHC 31.3 L, RDW Std Deviation 53.5 H, RDW Coeff of Abdiel 15.9 H, Plt Count 199, MPV 9.8, Immature Gran % (Auto) 0.500, Neut % (Auto) 65.5, Lymph % (Auto) 12.5 L , Shannon % (Auto) 15.7 H, Eos % (Auto) 5.3 H, Baso % (Auto) 0.5, Absolute Neuts (auto) 5.0, Absolute Lymphs (auto) 0.95, Nucleated RBC % 0, PT 17.5 H, INR 1.4, Sodium 140, Potassium 4.4, Chloride 110 H, Carbon Dioxide 27.0, Anion Gap 3 L, BUN 21 H, Creatinine 1.94 H, Estim Creat Clear Calc 35.43, Est GFR (MDRD) Af Amer 44 L, Est GFR (MDRD) Non-Af 37 L, BUN/Creatinine Ratio 10.8, Glucose 88, Calcium 8.5 Micro: Microbiology 02/20/23 Unknown Biopsy - Tissue Wound Culture - Preliminary Gram negative wilber 02/19/23 12:03 Blood Culture (Wb) - Right Hand Blood Culture - Preliminary No growth in 48 hours. 02/19/23 11:55 Blood Culture (Wb) - Arm Left Blood Culture - Preliminary No growth in 48 hours. 02/17/23 10:15 Urine, Clean Catch Urine Culture - Final Escherichia coli Physical Exam Narrative General: Alert, Oriented x3, Cooperative, No apparent distress HEENT: Atraumatic, PERRLA, EOMI, Normocephalic Oral: Moist Mucosa Neck: Supple, No JVD Lungs: Clear to auscultation, Normal air movement, No rhonchi, No wheeze, No rales Cardiovascular: Regular rate, Regular Rhythm, Normal S1, Normal S2, No murmurs Abdomen: Soft, Non Tender, Non-Distended, No Hepato-splenomegaly Extremities: No edema, Capillary Refill Less than 3 Seconds Skin: No rashes, No breakdown Musculoskeletal: No Tenderness to Palpation of Joints or Extremities Neurological: Cranial nerves II-XII grossly intact, Motor Exam 5/5 strength throughout, Sensory exam intact to light touch and pain Psych/Mental Status: Normal Affect, Appropriate Assessment & Plan Assessment/Plan (1) Intractable low back pain: PLAN: Plan 1. Intractable lumbar pain secondary to acute compression fracture of T12-L1 in the setting of spinal osteomyelitis and discitis/chronic degenerative disc disease of the lumbar spine/morbid obesity ?Both thoracic and lumbar MRI demonstrate osteomyelitis and discitis at the T12- L1, the thoracic MRI does not comment on any possibility of an epidural abscess and discussion with spine surgery does not indicate a need for intervention at this time we did consult infectious disease continue with IV antibiotics ?CT-guided biopsy currently demonstrated gram-negative wilber continue with IV antibiotics appreciate IDs assistance ? Continue with pain medication he states that he still has a lot of difficulty ambulating so he may need discharge to a retirement if no direct intervention to be achieved ? BMI of 47.1, discussed lifestyle modifications ? Continue with tizanidine ? PT/OT 2. A-fib/HLD/HTN/CAD ? Blood pressure stable ? Continue with his home medications ? We will monitor make adjustments as necessary ?Held his Coumadin secondary to the need for possible biopsy and did give a dose of vitamin K INR today is 1.9 can restart Coumadin tomorrow after 24 hours p ostprocedure 3. GERD ? Stable ? Continue with PPI 4. Anxiety/depression ? Stable ? Continue with his home medications DVT: Coumadin Charges/Coding Visit Charges Inpatient E&M: 67376 Subs Hosp L2
[2023-02-21] MEDS: oxyCODONE 5 MG Tablet PO ×2 (11:39→19:40)
[2023-02-21 15:00] VITALS: RESP 18
--- NOTE | 2023-02-21 15:23 | PCM.PN.ID ---
Physical Exam Narrative Feeling better, back pain improving, no fever Const alert and no apparent distress General Appearance: cooperative Resp normal air movement and clear to auscultation bilaterally Cardio regular rate and regular rhythm GI soft to palpation, non-tender and non-distended Skin no rashes or lesions noted and no wounds ID ID: Route of nutrition/ use of supplements: [] Nutritional Intake: [] IV Site: [] Adams Catheter: [] Assessment & Plan Assessment/Plan (1) Discitis of lumbar region: PLAN: MRI shows T12-L1 discitis with developed epidural phlegmon/abscess. Bcx neg so far. IR aspiration of disc done 02/20, cx showing GNR. Cont vanc/ceftriaxone. Did have one ucx 10/2022 with pseudomonas. Ucx 02/17 with heavy growth of ecoli. Will follow
[2023-02-21 16:00] VITALS: BP 152/73; PULSE 56; RESP 18; TEMP 37.2; O2SAT 97
[2023-02-21 16:32] LABS: Vancomycin, Trough Level 15.3 ug/mL (5.0-15.0)
--- NOTE | 2023-02-21 16:52 | PCM.RX.CS ---
Consult Antibiotic Management Pharmacy has been consulted to manage selected antiobiotic: Vancomycin Type of Intervention Type of Consult: Follow-up Labs Labs: Sodium 140 mmol/L (136-145) 02/21/23 05:28 Potassium 4.4 mmol/L (3.5-5.1) 02/21/23 05:28 Chloride 110 mmol/L (98-107) H 02/21/23 05:28 Carbon Dioxide 27.0 mmol/L (21.0-32.0) 02/21/23 05:28 Anion Gap 3 (5-15) L 02/21/23 05:28 BUN 21 mg/dL (7-18) H 02/21/23 05:28 Creatinine 1.94 mg/dL (0.70-1.30) H 02/21/23 05:28 Est GFR (MDRD) Af Amer 44 mL/min (>60) L 02/21/23 05:28 Est GFR (MDRD) Non-Af 37 mL/min (>60) L 02/21/23 05:28 BUN/Creatinine Ratio 10.8 RATIO (10-20) 02/21/23 05:28 Glucose 88 mg/dL (74-106) 02/21/23 05:28 Vancomycin Trough 15.3 ug/mL (5.0-15.0) H 02/21/23 15:36 Microbiology Microbiology: Microbiology 02/20/23 Unknown Biopsy - Tissue Gram Stain - Final 02/20/23 Unknown Biopsy - Tissue Wound Culture - Preliminary Gram negative wilber 02/19/23 12:03 Blood Culture (Wb) - Right Hand Blood Culture - Preliminary No growth in 48 hours. 02/19/23 11:55 Blood Culture (Wb) - Arm Left Blood Culture - Preliminary No growth in 48 hours. 02/17/23 10:15 Urine, Clean Catch Urine Culture - Final Escherichia coli Goal Trough Goal Trough: 15-20 mcg/mL Pharmacy Plan for Drug Dosing Pharmacy Plan for Drug Dosing: VANCOMYCIN LEVEL RECEIVED Current Vancomycin Dose: 1500MG IV Q24H Number of Doses Received: 2 (Loading + 1 scheduled dose) Vancomycin Level: 15.3 Hours Since Last Dose: 23.75hr Renal Function: 1.94 Renal Function Trend: improvement from initial labs Lab/Micro: cx still pending Vancomycin Plan/Comments: Patient had a trough drawn which resulted in a value of 15.3 (goal 15-20). Patient's vancomycin trough is within the therapeutic goal. Will continue current dose of vancomycin 1500mg IV Q24h and recheck a trough in 2 days to re-assess dosing at that time. Pending Level: 02/23/23 @4576 Pharmacy Service will continue to monitor and adjust dosing as required.
[2023-02-21] MEDS: Tamsulosin HCl 0.4 MG Capsule PO (16:56)
[2023-02-21] MEDS: Vancomycin HCl 1,500 MG in 0.9% Normal Saline (500mL Bag) 500 ML 250 MG IV (17:04)
[2023-02-21] MEDS: Acetaminophen 325 MG Tablet 650 MG PO (19:40)
[2023-02-21 20:46] VITALS: BP 140/64; PULSE 61; RESP 18; TEMP 36.9; O2SAT 97
[2023-02-21] MEDS: Atorvastatin Calcium 80 MG Tablet PO (20:50)
[2023-02-21] MEDS: Mirtazapine 30 MG Tablet PO (20:51)
[2023-02-22 02:45] VITALS: BP 154/71; PULSE 52; RESP 16; TEMP 36.9; O2SAT 96
[2023-02-22 02:46] VITALS: PULSE 52
[2023-02-22 05:18] VITALS: BMI 47.1
[2023-02-22] MEDS: tiZANidine HCl 2 MG Tablet 4 MG PO (05:55)
[2023-02-22 07:48] LABS: Absolute Lymphocyte Count 0.98 X10^3/uL (0.83-4.51); Absolute Neutrophil Count 3.2 X10^3/uL (2.0-7.7); Basophil# 0.04 X10^3/uL; Basophil% 0.7 % (0-1); Eosinophil# 0.32 X10^3/uL; Eosinophils% 5.7 % (0-5); Hematocrit 34.3 % (40-54); Hemoglobin 9.7 g/dL (13.0-16.5); Lymphocyte # 0.98 X10^3/ul (0.83-4.51); Lymphocyte % 17.5 % (19-41); Mean Corp Hgb Conc 28.3 g/dL (32-36); Mean Corpuscular Volume 99.1 fL (80-94); Mean Platelet Vol. 10.1 fl (6.2-12.0); Monocyte# 1.03 X10^3/uL; Monocyte% 18.4 % (0-10); NRBC Flagged by Analyzer 0 % (0-5); Neutrophil % 57.2 % (47-70); Platelet Count 190 K/mm3 (150-450); RBC Distribution Width CV 15.9 % (11.6-14.6); RBC Distribution Width SD 57.3 fl (35.1-43.9); Red Blood Count 3.46 M/mm3 (4.6-6.2); White Blood Count 5.6 K/mm3 (4.4-11.0)
[2023-02-22 08:10] LABS: International Normalized Ratio 1.4; Prothrombin Time (Protime)PT. 17.1 SECONDS (11.7-14.9)
[2023-02-22 08:16] LABS: Anion Gap 7 (5-15); BUN 18 mg/dL (7-18); BUN/Creat Ratio 9.9 RATIO (10-20); Calcium,Total 8.5 mg/dL (8.5-10.1); Chloride 107 mmol/L (98-107); Creatinine, Serum 1.82 mg/dL (0.70-1.30); EST Glomerular Filtration Rate 39 mL/min (>60); Est Glom Filt Rate - Afr Amer 48 mL/min (>60); Estimated Creatinine Clearance 37.77 ml/min; Glucose 89 mg/dL (74-106); Potassium 4.4 mmol/L (3.5-5.1); Sodium Level 140 mmol/L (136-145)
[2023-02-22 08:43] VITALS: BP 170/73; PULSE 56; RESP 16; TEMP 36.6; O2SAT 99
[2023-02-22] MEDS: oxyCODONE 5 MG Tablet PO (08:52)
[2023-02-22] MEDS: Multivitamins,Therapeutic Tablet 1 TABLET PO (08:53)
[2023-02-22] MEDS: Meloxicam 7.5 MG Tablet PO (08:53)
[2023-02-22] MEDS: Acetaminophen 325 MG Tablet 650 MG PO (08:53)
[2023-02-22] MEDS: Aspirin E.C. 81 MG Tablet PO (08:53)
--- NOTE | 2023-02-22 09:47 | PCM.DC ---
Discharge Instructions Diet Discharge Diet: Low fat / Low cholesterol Activity Discharge Activity: Return to Normal Activity Dressing / Incision Call your doctor if you observe: Fever of 101 or Higher, Shortness of breath, Dizziness, Fainting spells, Swelling in the ankles, Chest pain and Increased palpitations (irregular heartbeat) Follow Up Care Test Results: Test results from this visit will be discussed in further detail at your follow-up appointment, if applicable. Discharge Plan Admission Admit Date/Time: 02/17/23 16:12 Attending Provider: Salvador To Primary Care Provider: Cornell Gunter Consulting Providers: Hal Phipps; Salvador To; Jabier Marin; Merritt Soares; Wild Wilson Instructions Patient Instructions: RAD RN Image-Guided Biopsy, RAD RN Procedural Sedation Discharge Orders/Prescriptions Prescriptions: New ceftriaxone 2 gram recon soln 2 g IV Q12H 40 Days Rx Instructions: dx: epidural abscess stop date 04/02/23 weekly bmp, cbc, and esr. Fax to [phone] oxycodone 5 mg Tablet 5 mg PO Q4H PRN PRN (Reason: Pain Score 4-6) 3 Days Qty: 10 0RF Continued hydroxychloroquine 200 mg tablet 200 mg PO BID (DME) Handicap Placard See Rx Instructions .Route .MEDSUPPLY Qty: 1 0RF Rx Instructions: Good from 07/05/2021-07/05/2026; multivitamin 1 TABLET tablet 1 tab PO DAILY citalopram 20 MG tablet 20 mg PO DAILY tamsulosin 0.4 MG capsule 0.4 mg PO DAILY esomeprazole magnesium 20 MG capsule 20 mg PO DAILY cod liver oil 1 EACH capsule 1 cap PO DAILY turmeric 400 MG capsule 450 mg PO DAILY mirtazapine 30 mg tablet 30 mg PO QHS cyclobenzaprine 10 mg tablet 10 mg PO Q8H PRN (Reason: muscle spasm) isosorbide mononitrate 60 mg tablet extended release 24 hr 60 mg PO BID meloxicam 7.5 mg tablet 7.5 mg PO DAILY metoprolol succinate 25 mg tablet extended release 24 hr 25 mg PO DAILY nitroglycerin 0.4 mg tablet, sublingual 0.4 mg sublingual Q5M PRN (Reason: chest pain) allopurinol 300 mg tablet 300 mg PO DAILY aspirin [Adult Aspirin Regimen] 81 mg tablet,delayed release (DR/EC) 81 mg PO DAILY ranolazine [Ranexa] 500 mg tablet extended release 12 hr 1,000 mg PO BID atorvastatin 80 mg tablet See Rx Instructions .ROUTE .COMPLEX Qty: 90 4RF Dose Instruction: TAKE 1 TABLET BY MOUTH AT BEDTIME Rx Instructions: TAKE 1 TABLET BY MOUTH AT BEDTIME warfarin 4 mg tablet 4 mg PO .COMPLEX Qty: 60 11RF Protocol: Dose Management Condition: Sunday Dose/Route: 4 mg Instruction: 1 x 4 mg tablet Condition: Sunday Dose/Route: 8 mg Instruction: 2 x 4 mg tablets Condition: Sunday Dose/Route: 8 mg Instruction: 2 x 4 mg tablets Condition: Sunday Dose/Route: 8 mg Instruction: 2 x 4 mg tablets Condition: Dose/Route: 8 mg Instruction: 2 x 4 mg tablets Condition: Sunday Dose/Route: 8 mg Instruction: 2 x 4 mg tablets Condition: Sunday Dose/Route: 4 mg Instruction: 1 x 4 mg tablet Protocol Text: Adjustment Start Date: Sunday02/12/23 INR Value: 1.6 INR Date: 02/12/23 Recheck Date: 02/19/23 Rx Instructions: 4 mg Sat/Sun and 8mg Sun-Sun; or as instructed Referrals / Follow Up: Cornell Gunter MD [Primary Care Provider] - Within 1 Week Disposition Disposition (needs filled in before D/C Order can be placed): Home Health Service
[2023-02-22] MEDS: Hydroxychloroquine 200 MG Tablet PO (10:20)
[2023-02-22] MEDS: Citalopram 20 MG Tablet PO (10:20)
[2023-02-22] MEDS: Isosorbide Mononitrate 60 MG Tablet PO (10:20)
[2023-02-22] MEDS: Senna/Docusate Sodium 1 Tablet 2 TABLET PO (10:20)
[2023-02-22] MEDS: Ranolazine 500 MG Tablet 1000 MG PO (10:20)
[2023-02-22] MEDS: Pantoprazole Sodium 20 MG Tablet PO (10:20)
[2023-02-22 10:21] VITALS: PULSE 56
[2023-02-22] MEDS: Allopurinol 300 MG Tablet PO (10:21)
--- NOTE | 2023-02-22 10:26 | CASEMGMT ---
Addendum entered by Kesha Mcgowan 02/22/23 14:20: [facility] will deliver med to home this evening. Addendum entered by Kesha Mcgowan 02/22/23 13:14: Spoke with KAROLYN el for dose of IV atb to be missed this evening for SOC tomorrow with [facility]. Addendum entered by Kesha Mcgowan 02/22/23 13:08: Cost for pt is $35.41 for med per week and $140/wk for supplies. CHUY PENALOZA into pt room, pt states he may need to make payments for the med and supplies but will do so. Updated [facility] via [facility]. Pt is agreeable to having [facility] come to his home. He is aware that they will be out in the morning and that the med and supplies will be delivered tonight. Pt denies further needs at this time. Addendum entered by Kesha Mcgowan 02/22/23 12:53: [facility] has declined pt. [facility] has accepted pt for SOC tomorrow morning. Addendum entered by Kesha Mcgowan 02/22/23 10:39: Received tc back from [facility], they are unable to accept pt. Original Note: CHUY PENALOZA into pt room, pt nurse present and pt sitting up in chair. Pt is aware he will need IV atb at sd. Pt states he can do this at home and his can learn as she has given injections to a family member in the past. Provided pt with a local in network list of infusion companies, pt chose [facility]. Patient was provided a list of [facility] providers including quality and resource use data and consistent with the patient?s preferred geographic region, medical needs, and insurance network were provided from the [employer] Guide. Pt states to start with [facility] and then go down the list. TC to Clau at [facility], referral made, will await acceptance. Due to holiday and upcoming weekend, requested dc pest controller assistant to send referrals to Lynette Valencia [facility], [facility] and [facility].
--- NOTE | 2023-02-22 10:29 | CASEMGMT ---
Infusion referral to [facility] via [facility]. Inquired about cost, awaiting response. Jonny Hayes RN CM
[2023-02-22] MEDS: Ceftriaxone 2 GM in 0.9% Normal Saline (50mL MB+) 50 ML IV (10:30)
--- NOTE | 2023-02-22 10:41 | PCM.PN.ID ---
Physical Exam Narrative Feeling better, back still sore, no fever Const alert and no apparent distress General Appearance: cooperative Resp normal air movement and clear to auscultation bilaterally Cardio regular rate and regular rhythm GI soft to palpation, non-tender and non-distended Skin no rashes or lesions noted ID ID: Route of nutrition/ use of supplements: [] Nutritional Intake: [] IV Site: [] Adams Catheter: [] Assessment & Plan Assessment/Plan (1) Discitis of lumbar region: PLAN: MRI shows T12-L1 discitis with developed epidural phlegmon/abscess. Bcx neg so far. IR aspiration of disc done 02/20, cx showing ecoli. Cont ceftriaxone. Did have one ucx 10/2022 with pseudomonas. Ucx 02/17 with heavy growth of ecoli. Ok for discharge with picc and q12h ceftriaxone for 6 weeks, stop date 04/02/23 with weekly labs, ID followup in 3 weeks. Will need repeat MRI prior to stopping abx. Will follow
--- NOTE | 2023-02-22 12:03 | CASEMGMT ---
Referral sent via [facility] to Lynette Valencia, [facility], [facility] and [facility] for SN. Jonny Hayes RN CM
--- NOTE | 2023-02-22 13:14 | CASEMGMT ---
Discharge Planning Patient has been accepted by [facility]. Jayne Henry, Discharge Planning Asst.
--- NOTE | 2023-02-22 13:30 | DS.PCM_ITS ---
Providers Date of Admission: 02/17/23 Primary Care Physician: Dr. Cornell Gunter MD Consultations 02/17/23 16:33 Consult: Orthopedics Routine Consulting Provider: Hal Phipps Reason for Consult: T12-L1 compression fracture EMERGENT Consult: No Notified: Yes Date Notified: 02/17/23 Time Notified: 16:33 Method of Notification: ED Physician Initiated 02/19/23 11:07 Consult: Infectious Disease Routine Consulting Provider: Merritt Soares Reason for Consult: discitis EMERGENT Consult: No Notified: Yes Date Notified: 02/19/23 Time Notified: 11:09 Method of Notification: Text 02/19/23 12:35 Consult: Infectious Disease Routine Consulting Provider: Merritt Soares Reason for Consult: Discitis/Osteo lumbar spine EMERGENT Consult: No Notified: Yes Date Notified: 02/19/23 Time Notified: 12:36 Method of Notification: Dr. to spoke with 02/19/23 14:10 Consult: Interventional Radiology Routine Consulting Provider: Wild Wilson Reason for Consult: discitis EMERGENT Consult: No Notified: Yes Date Notified: 02/19/23 Time Notified: 14:10 Method of Notification: Verbal Method of Consult:: In-Person Comments:: Dominguez dubose Reason For Visit: ACUTE ON CHR BACK PAIN T12-L1 COMPRESSION Diagnosis Discharge Diagnosis (1) Discitis of lumbar region: Status: Acute Code(s): M46.46 - Discitis, unspecified, lumbar region Medications at Discharge Home Medications citalopram 20 mg tablet 20 mg PO DAILY MOOD 09/21/14 multivitamin 1 tab PO DAILY SUPPLEMENT 09/21/14 esomeprazole magnesium 20 mg capsule,delayed release 20 mg PO DAILY 05/18/19 tamsulosin 0.4 mg capsule 0.4 mg PO DAILY 05/18/19 cod liver oil 1 cap PO DAILY arthritis 02/03/20 turmeric 400 mg capsule 450 mg PO DAILY arthritis 02/03/20 hydroxychloroquine 200 mg tablet 200 mg PO BID arthritis 04/25/21 Handicap Placard #1 ea 07/05/21 mirtazapine 30 mg tablet 30 mg PO QHS 10/01/22 atorvastatin 80 mg tablet See Rx Instructions .Route .COMPLEX #90 tabs 11/21/22 warfarin 4 mg tablet 4 mg PO .COMPLEX #60 tabs 01/23/23 allopurinol 300 mg tablet 300 mg PO DAILY 02/17/23 aspirin 81 mg tablet,delayed release (Adult Aspirin Regimen) 81 mg PO DAILY 1 04/20/22 cyclobenzaprine 10 mg tablet 10 mg PO Q8H PRN muscle spasm 02/17/23 isosorbide mononitrate 60 mg tablet,extended release 24 hr 60 mg PO BID 02/17/23 meloxicam 7.5 mg tablet 7.5 mg PO DAILY 02/17/23 metoprolol succinate 25 mg tablet,extended release 24 hr 25 mg PO DAILY 02/17/23 nitroglycerin 0.4 mg sublingual tablet 0.4 mg sublingual Q5M PRN chest pain 02/17/23 ranolazine 500 mg tablet,extended release,12 hr (Ranexa) 1,000 mg PO BID 02/17/23 ceftriaxone 2 gram intravenous solution 2 g IV Q12H 40 days 02/22/23 oxycodone 5 mg tablet 5 mg PO Q4H PRN PRN Pain Score 4-6 3 days #10 tabs 02/22/23 Hospital Course Operations None Procedures None Summary of Care Provided Minutes Spent on Discharge: 38 Hospital Course: Per HPI: GUSTAVO HARTMAN, is a 72 M with chronic back pain since August 2022 he describes slight pain in the lumbar area which got worse yesterday night while he went to the bed. He stated he could not get out of the pain because of pain, excruciating in nature from lumbar spine with radiation to left side of the buttock and thigh ending before knee. It is 10 out of 10 in intensity. Patient is on meloxicam 7.5 mg daily, cyclobenzaprine at home. He denies any precipitating factor that led to the worsening of pain. He had a fall about 3 years ago but no major accident or injury. Denies fever or chills. In ED, patient had CT abdomen/pelvis shows compression fracture of T12 and L1 vertebral bodies at the T12-L1 disc space level but do not appear acute. Vitals, labs and imaging reviewed and discussed in assessment and plan. ED physician consulted Dr. Hal Phipps. Hospital Course: 1. 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 He has been having chronic back pain since August 2022 and that it got worse prior to admission. Initial MRI demonstrated discitis and osteomyelitis. He has had multiple UTIs recently so it is possible that he had his seeding from 1 of those infections. He did have a biopsy for culture done that demonstrated a pansensitive E. coli. Infectious disease was consulted and recommended 6 weeks of IV Rocephin and the PICC was placed on the day of discharge. He states that his back pain is much improved compared to when he came in since has been started on antibiotics. Will continue with pain man agement on discharge for a few days though anticipate that he will have significant improvement in his back pain as infection is treated. I discussed with him the plan for discharge today he expressed understanding of the risk benefits going home and would like to go home today. 2. A-fib, hypertension, hyperlipidemia, coronary artery disease, GERD, anxiety, depression all chronic medical conditions which complicate care. He initially did have an INR 3.2 this had to be reversed with p.o. vitamin K, he is down to an INR of 1.4 today, it is okay for him to restart his Coumadin and I recommend outpatient monitoring of his PT/INR by his PCP. Physical Exam Narrative General: Alert, Oriented x3, Cooperative, No apparent distress HEENT: Atraumatic, PERRLA, EOMI, Normocephalic Oral: Moist Mucosa Neck: Supple, No JVD Lungs: Clear to auscultation, Normal air movement, No rhonchi, No wheeze, No rales Cardiovascular: Regular rate, Regular Rhythm, Normal S1, Normal S2, No murmurs Abdomen: Soft, Non Tender, Non-Distended, No Hepato-splenomegaly Extremities: No edema, Capillary Refill Less than 3 Seconds Skin: No rashes, No breakdown Musculoskeletal: No Tenderness to Palpation of Joints or Extremities Neurological: Cranial nerves II-XII grossly intact, Motor Exam 5/5 strength throughout, Sensory exam intact to light touch and pain Psych/Mental Status: Normal Affect, Appropriate Weight / BMI Weight Weight: 318 lb 2.032 oz Body Mass Index (BMI) 47.1 ABG / Lab / Microbiology Data 02/22/23 06:57 02/22/23 06:57 Laboratory: Laboratory Results - last 24 hr 02/21/23 15:36: Vancomycin Trough 15.3 H 02/22/23 06:57: WBC 5.6, RBC 3.46 L, Hgb 9.7 L, Hct 34.3 L, MCV 99.1 H D, MCH 28.0, MCHC 28.3 L D, RDW Std Deviation 57.3 H, RDW Coeff of Abdiel 15.9 H, Plt Count 190, MPV 10.1, Immature Gran % (Auto) 0.500, Neut % (Auto) 57.2, Lymph % (Auto) 17.5 L, [place] % (Auto) 18.4 H, Eos % (Auto) 5.7 H, Baso % (Auto) 0.7, Absolute Neuts (auto) 3.2, Absolute Lymphs (auto) 0.98, Nucleated RBC % 0, PT 17.1 H, INR 1.4, Sodium 140, Potassium 4.4, Chloride 107, Carbon Dioxide 26.0, Anion Gap 7, BUN 18, Creatinine 1.82 H, Estim Creat Clear Calc 37.77, Est GFR (MDRD) Af Amer 48 L, Est GFR (MDRD) Non-Af 39 L, BUN/Creatinine Ratio 9.9 L, Glucose 89, Calcium 8.5 Microbiology: Microbiology 02/20/23 Unknown Biopsy - Tissue Gram Stain - Final 02/20/23 Unknown Biopsy - Tissue Wound Culture - Final Escherichia coli 02/20/23 Unknown Biopsy - Tissue Anaerobic Culture - Preliminary Checking for anaerobes, further studies to follow. 02/19/23 12:03 Blood Culture (Wb) - Right Hand Blood Culture - Preliminary No growth in 48 hours. 02/19/23 11:55 Blood Culture (Wb) - Arm Left Blood Culture - Preliminary No growth in 48 hours. 02/17/23 10:15 Urine, Clean Catch Urine Culture - Final Escherichia coli D/C Instructions Discharge Diet: Low fat / Low cholesterol Call your doctor if you observe: Fever of 101 or Higher, Shortness of breath, Dizziness, Fainting spells, Swelling in the ankles, Chest pain and Increased palpitations (irregular heartbeat) Meaningful Use Info Meaningful Use Diagnoses (Choose all that apply): None applicable Discharge Plan Admission Admit Date/Time: 02/17/23 16:12 Attending Provider: Salvador To Primary Care Provider: Cornell Gunter Consulting Providers: Hal Phipps; Salvador To; Jabier Marin; Merritt Soares; Wild Wilson Instructions Patient Instructions: RAD RN Image-Guided Biopsy, RAD RN Procedural Sedation Additional Instructions / Restrictions: Obtain outpatient INR measured to be given vitamin K to allow for the CT-guided biopsy of your spine. INR today on discharge is 1.4 Discharge Orders/Prescriptions Prescriptions: New ceftriaxone 2 gram recon soln 2 g IV Q12H 40 Days Rx Instructions: dx: epidural abscess stop date 04/02/23 weekly bmp, cbc, and esr. Fax to [phone] oxycodone 5 mg Tablet 5 mg PO Q4H PRN PRN (Reason: Pain Score 4-6) 3 Days Qty: 10 0RF Continued hydroxychloroquine 200 mg tablet 200 mg PO BID (DME) Handicap Placard See Rx Instructions .Route .MEDSUPPLY Qty: 1 0RF Rx Instructions: Good from 07/05/2021-07/05/2026; multivitamin 1 TABLET tablet 1 tab PO DAILY citalopram 20 MG tablet 20 mg PO DAILY tamsulosin 0.4 MG capsule 0.4 mg PO DAILY esomeprazole magnesium 20 MG capsule 20 mg PO DAILY cod liver oil 1 EACH capsule 1 cap PO DAILY turmeric 400 MG capsule 450 mg PO DAILY mirtazapine 30 mg tablet 30 mg PO QHS cyclobenzaprine 10 mg tablet 10 mg PO Q8H PRN (Reason: muscle spasm) isosorbide mononitrate 60 mg tablet extended release 24 hr 60 mg PO BID meloxicam 7.5 mg tablet 7.5 mg PO DAILY metoprolol succinate 25 mg tablet extended release 24 hr 25 mg PO DAILY nitroglycerin 0.4 mg tablet, sublingual 0.4 mg sublingual Q5M PRN (Reason: chest pain) allopurinol 300 mg tablet 300 mg PO DAILY aspirin [Adult Aspirin Regimen] 81 mg tablet,delayed release (DR/EC) 81 mg PO DAILY ranolazine [Ranexa] 500 mg tablet extended release 12 hr 1,000 mg PO BID atorvastatin 80 mg tablet See Rx Instructions .ROUTE .COMPLEX Qty: 90 4RF Dose Instruction: TAKE 1 TABLET BY MOUTH AT BEDTIME Rx Instructions: TAKE 1 TABLET BY MOUTH AT BEDTIME warfarin 4 mg tablet 4 mg PO .COMPLEX Qty: 60 11RF Protocol: Dose Management Condition: Sunday Dose/Route: 4 mg Instruction: 1 x 4 mg tablet Condition: Sunday Dose/Route: 8 mg Instruction: 2 x 4 mg tablets Condition: Sunday Dose/Route: 8 mg Instruction: 2 x 4 mg tablets Condition: Sunday Dose/Route: 8 mg Instruction: 2 x 4 mg tablets Condition: Dose/Route: 8 mg Instruction: 2 x 4 mg tablets Condition: Sunday Dose/Route: 8 mg Instruction: 2 x 4 mg tablets Condition: Sunday Dose/Route: 4 mg Instruction: 1 x 4 mg tablet Protocol Text: Adjustment Start Date: Sunday02/12/23 INR Value: 1.6 INR Date: 02/12/23 Recheck Date: 02/19/23 Rx Instructions: 4 mg Sat/Sun and 8mg Sun-Sun; or as instructed Referrals / Follow Up: Cornell Gunter MD [Primary Care Provider] - 02/28/23 1:50 pm (This appointment will be with do to Dr. Carbajal having no openings.) Merritt Soares MD [Med Staff - Active Staff] - Within 1 Month Disposition Disposition (needs filled in before D/C Order can be placed): Home Health Service Charges/Coding Visit Charges Inpatient E&M: 36379 Disch Hosp >30min
[2023-02-22 15:00] VITALS: BP 150/63; PULSE 57; RESP 16; TEMP 36.6; O2SAT 99
--- NOTE | 2023-02-22 15:41 | PCM.OP.PRO ---
Procedure Report Date of Procedure: 02/22/23 Assessment & Plan Assessment/Plan (1) Discitis of lumbar region: Procedures Radiology Radiology Access Procedures: PICC Procedure Time Out Time Out Informed consent given: Yes Consent signed: Yes Time out checklist: patient, procedure, site marked/identified, positioning of patient, supplies available and allergies confirmed Time out verified: Yes Time out date: 02/22/23 Time out time: 13:25 PICC Line Consent Screening tool completed:: Yes Consent obtained:: Yes Consent given by (patient or responsible constitution party):: patient Line successful (if no, document why in comments):: Yes Insertion Reason for Insertion: Digital X Ray Service Engineer Medication Date of Insertion: 02/22/23 Ok to use: Yes Type of PICC inserted: Dual Power PICC PICC Lot #: [id number] PICC Reference #: [id number] Microintroducer Used: Yes (in kit) Ultrasound/Equipment Used: Probe Cover Kit Trimmed Length (cm): 54 Insertion Length (cm): 52 Exposed Length (cm): 2 Tip Placement: SVC (Superior Vena Cava) Placement Confirmation: 3CG Insertion Vein: Right Basilic Insertion Attempts: 1 Local Anesthesia Used: Lidocaine 1% (in kit) Dressing Applied: Statlock and Tegaderm CHG Arm Measurement above site (in cm): 34 Patient Tolerated Procedure: Well Threading Difficulties: No Comments Comment: Patient identity was verified with two patient identifiers. Informed consent was obtained and time-out was completed. Hands were sanitized. The patient was positioned supine with right arm at 90 degrees. The patient's upper arm vasculature was assessed using ultrasound, and the right basilic vein was externally marked. An external measurement was obtained of 54 cm. External leads were applied to the patient's right upper chest and laterally and inferior of the umbilicus on the mid axillary line. Cap, mask, and prep gloves were donned. The underdrape was placed under the patient's arm. The site was prepped with chlorhexidine, and tourniquet was loosely applied. Prep gloves were discarded, and hands were sanitized. The sterile kit was opened with additional supplies dropped in. Sterile gown and gloves were donned, and the patient was draped. The sterile kit was assembled with all needle, introducer, connector, and catheter flushed with sterile normal saline. The marked site of insertion was anesthetized with 1% lidocaine. Patient tolerated well. The right basilic vein was then accessed using ultrasound guidance and guidewire was inserted to safety fabio. The tourniquet was released. The access needle was removed while securing the guidewire in place. The site was again anesthetized with 1% lidocaine, prior to insertion of introducer sheath and dilator. Patient tolerated well. The catheter was trimmed to a length of 54 cm. Using 3C guidance, the catheter was then inserted through the introducer sheath, slowly. There was no resistance on insertion. Maximal p-wave, without deflection, was obtained at an insertion length of 52 cm, leaving 2 cm external. The introducer sheath was retracted and peeled away, incrementally, while keeping the catheter secured. The stylet was removed. A flushed needleless connector was attached to each lumen. Blood return was verified and both lumens were flushed with sterile normal saline in a pulsatile fashion. Total sterile flushes used for the insertion was 5 10 ml syringes, including 2 from the kit. Finally, the insertion site was cleaned with chlorhexidine, and the catheter was secured using a StatLock. The site was covered with a Tegaderm CHG Dressing. Baseline arm circumference was obtained at the insertion site and measured 34 cm. The patient was provided with homegoing instructions on PICC line care.
== END 2023-02-22 14:52 | disposition home health service (06) | DRG 477 ==
LOC: ED 16:09 → MS3 16:30
PROVIDERS: Internal Medicine Infectious Disease; Orthopaedic Surgery; Physician Assistant; Admitting Provider Internal Medicine; Emergency Provider Emergency Medicine; PCP Family Medicine; Visit Provider Family Medicine
DX: M46.26 Osteomyelitis of vertebra, lumbar region (principal); G06.2 Extradural and subdural abscess, unspecified; S22.080A Wedge compression fracture of T11-T12 vertebra, initial encounter for closed fracture; S32.010A Wedge compression fracture of first lumbar vertebra, initial encounter for closed fracture; Z68.42 Body mass index [BMI] 45.0-49.9, adult; N18.32 Chronic kidney disease, stage 3b; I48.0 Paroxysmal atrial fibrillation; E66.01 Morbid (severe) obesity due to excess calories; I12.9 Hypertensive chronic kidney disease with stage 1 through stage 4 chronic kidney disease, or unspecified chronic kidney disease; F32.A Depression, unspecified; I25.10 Atherosclerotic heart disease of native coronary artery without angina pectoris; M10.9 Gout, unspecified; M62.830 Muscle spasm of back; M48.061 Spinal stenosis, lumbar region without neurogenic claudication; E78.00 Pure hypercholesterolemia, unspecified; K21.9 Gastro-esophageal reflux disease without esophagitis; F41.9 Anxiety disorder, unspecified; M13.0 Polyarthritis, unspecified; B96.20 Unspecified Escherichia coli [E. coli] as the cause of diseases classified elsewhere; N40.1 Benign prostatic hyperplasia with lower urinary tract symptoms; R32 Unspecified urinary incontinence; G89.29 Other chronic pain; Z79.01 Long term (current) use of anticoagulants; Z79.1 Long term (current) use of non-steroidal anti-inflammatories (NSAID); Z79.82 Long term (current) use of aspirin; Z87.891 Personal history of nicotine dependence
CPT/HCPCS: 36415; 36569; 72146; 72148; 74177; 77012; 80048; 80202; 81001; 83735; 85025; 85610; 85652; 86140; 87040; 87070; 87075; 87077; 87086; 87088; 87186; 87205; 88172; 88305; 88313; 94668; 97162; 97166; 99156; 99157; 99252; 99285; J7030; J7040; J7050; J7120; Q9967; A4216; G0463; J0696; J2405

== ENCOUNTER 2023-02-26 17:13 | Emergency (ER) | payer MEDICARE, OTHER, SELFPAY ==
[2023-02-26 17:15] VITALS: BP 180/75; PULSE 61; RESP 20; TEMP 36.2; O2SAT 98; BMI 47.4
--- NOTE | 2023-02-26 17:28 | EKG12_ITS ---
Test Reason : REPEAT CP Blood Pressure : / mmHG Vent. Rate : 059 BPM Atrial Rate : 059 BPM P-R Int : 210 ms QRS Dur : 088 ms QT Int : 472 ms P-R-T Axes : 069 030 055 degrees QTc Int : 467 ms Sinus bradycardia with 1st degree A-V block with Premature supraventricular complexes Cannot rule out Inferior infarct , age undetermined Abnormal ECG Confirmed by EDUARDO LENZ, HERMAN ([id number]), video news editor RUEL LYNN ([id number]) on 03/06/2023 9:25:51 AM Referred By: Confirmed By:HERMAN CLARK MD
--- NOTE | 2023-02-26 17:30 | ED.VIS.CHEST ---
HPI History of Present Illness Chief Complaint: Chest Pain Detail of Chief Complaint: Chest pain Informant: patient Narrative Narrative: Patient presents to the emergency department with complaint of chest pain that started 45 minutes ago. Patient states that he was sitting in a recliner and was having pain in his low back which he has due to discitis for which she is currently being treated with IV antibiotics through a PICC line. Patient had taken his hydrocodone and it was not helping his pain and then he started having pressure and heaviness and tightness in his chest. He took 2 nitroglycerin tablets at home and called EMS. Patient tells me that he had a heart cath February 02 at [facility] that showed some blockages to the right side of the heart. He was told he may need stenting or bypass surgery. Patient was to let [facility] know how he was doing after the first of the new year. Patient's been complaining of chronic exertional dyspnea. Currently he rates his pain a 1 or 2 out of 10 and feels improved from when it first started. Patient denies nausea or vomiting. He denies diaphoresis. [facility] Medical History Ambulates with cane Anxiety and depression Arthritis Atherosclerotic heart disease of [place] coronary artery without angina pectoris Atrial fibrillation Chronic UTI CKD (chronic kidney disease), stage III Depression Essential hypertension Former smoker GERD (gastroesophageal reflux disease) Gout History of left heart catheterization (LHC) (~07/29/19) snf (current) use of anticoagulants Morbid obesity LILI on CPAP Paroxysmal atrial fibrillation Polyarthritis Pure hypercholesterolemia Viral syndrome Wears glasses Home Medications citalopram 20 mg tablet 20 mg PO DAILY MOOD 09/21/14 [History Last Taken 02/16/23] multivitamin 1 tab PO DAILY SUPPLEMENT 09/21/14 [History Last Taken 02/16/23] esomeprazole magnesium 20 mg capsule,delayed release 20 mg PO DAILY 05/18/19 [History Last Taken 02/16/23] tamsulosin 0.4 mg capsule 0.4 mg PO DAILY 05/18/19 [History Last Taken 02/16/23] cod liver oil 1 cap PO DAILY arthritis 02/03/20 [History Last Taken 02/16/23] turmeric 400 mg capsule 450 mg PO DAILY arthritis 02/03/20 [History Last Taken 02/16/23] hydroxychloroquine 200 mg tablet 200 mg PO BID arthritis 04/25/21 [History Last Taken 02/16/23] Handicap Placard #1 ea 07/05/21 [Rx Last Taken Unknown] mirtazapine 30 mg tablet 30 mg PO QHS 10/01/22 [History Last Taken 02/16/23] atorvastatin 80 mg tablet See Rx Instructions .Route .COMPLEX #90 tabs 11/21/22 [Rx Last Taken 02/16/23] warfarin 4 mg tablet 4 mg PO .COMPLEX #60 tabs 01/23/23 [Rx Last Taken 02/16/23] allopurinol 300 mg tablet 300 mg PO DAILY 02/17/23 [History Last Taken 02/16/23] aspirin 81 mg tablet,delayed release (Adult Aspirin Regimen) 81 mg PO DAILY 02/17/23 [History Last Taken 02/16/23] cyclobenzaprine 10 mg tablet 10 mg PO Q8H PRN muscle spasm 02/17/23 [History Last Taken 02/16/23] isosorbide mononitrate 60 mg tablet,extended release 24 hr 60 mg PO BID 02/17/23 [History Last Taken 02/16/23] meloxicam 7.5 mg tablet 7.5 mg PO DAILY 02/17/23 [History Last Taken 02/16/23] metoprolol succinate 25 mg tablet,extended release 24 hr 25 mg PO DAILY 02/17/23 [History Last Taken 02/16/23] nitroglycerin 0.4 mg sublingual tablet 0.4 mg sublingual Q5M PRN chest pain 02/17/23 [History Last Taken Unknown] ranolazine 500 mg tablet,extended release,12 hr (Ranexa) 1,000 mg PO BID 02/17/23 [History Last Taken 02/16/23] ceftriaxone 2 gram intravenous solution 2 g IV Q12H 40 days 02/22/23 [Rx Last Taken Unknown] oxycodone 5 mg tablet 5 mg PO Q4H PRN PRN Pain Score 4-6 3 days #10 tabs 02/22/23 [Rx Last Taken Unknown] Allergy/AdvReac Type Severity Reaction Status Date / Time bee venom protein (honey bee) Allergy Hives Verified 02/26/23 17:14 amlodipine AdvReac Severe severe Verified 02/26/23 17:14 swelling in hands and feet spider venom AdvReac Other Verified 02/26/23 17:14 Family History Father Heart disease Diabetes CAD (coronary artery disease) History of coronary artery bypass surgery Cardiac pacemaker in situ Pure hypercholesterolemia Surgical History H/O umbilical hernia repair History of cystoscopy History of inguinal hernia repair, bilateral History of knee surgery History of total right knee replacement Social History household members: spouse Smoking Status: Former smoker how long ago did patient quit smokin alcohol intake: never substance use type: does not use caffeine: Yes Type: tea Number of servings: 2 ROS ROS ED Review of Systems ROS Unobtainable: other Constitutional Constitutional ED: Reports lethargy; Denies chills, fever(s), sweats or weight loss Eyes Eyes: Denies blurry vision, change in vision or diplopia ENT ENT ED: Denies rhinorrhea or sore throat Cardiovascular Cardiovascular: Reports chest pain; Denies orthopnea or racing heartbeat Respiratory/Chest Respiratory/Chest: Reports dyspnea and dyspnea on exertion; Denies cough, orthopnea or sputum Gastrointestinal Gastrointestinal: Denies abdominal pain, diarrhea, nausea or vomiting Genitourinary Genitourinary ED: Denies dysuria, hematuria or urinary frequency Musculoskeletal Musculoskeletal: Denies arthralgias, back pain, myalgias or neck pain Integumentary Denies abscess, Abrasions or rash Neurologic Neurologic: Denies headache(s) or weakness Psychiatric Psychiatric: Denies anxiety, depression or suicidal thoughts Endocrine Endocrinology: Denies polydipsia, polyphagia or polyuria Hematologic/Lymphatic Hematologic/Lymphatic: Denies easy bleeding, easy bruising or lymphadenopathy Allergic/Immunologic Allergic/Immunologic ED: Denies mouth swelling, tongue swelling or urticaria EXAM Physical Exam Const Vital Signs: 02/26/23 17:15 02/26/23 18:01 02/26/23 17:28 Temperature 97.2 F L Temperature Source Oral Pulse Rate 61 65 Respiratory Rate 20 H Blood Pressure 180/75 H 189/66 H Blood Pressure Mean 110 Pulse Ox 98 Oxygen Delivery Method Room Air Room Air 02/26/23 18:04 02/26/23 20:41 Temperature Temperature Source Pulse Rate 57 L 64 Respiratory Rate 20 H 16 Blood Pressure 189/66 H 181/69 H Blood Pressure Mean 107 106 Pulse Ox 98 96 Oxygen Delivery Method Room Air Positive well nourished and well developed General Appearance ED: well developed and NAD HEENT Reports TM's clear and moist mucous membranes normocephalic and atraumatic; Negative for trauma or tenderness Tympanic Membrane ED: Yes TM's clear Eyes PERRL and EOMs intact bilaterally General Eye ED: Negative for pale conjunctiva or scleral icterus Neck no lymphadenopathy, supple and no JVD General: Negative for tenderness Chest Wall inspection of chest normal and palpation of chest normal Chest: Negative for tenderness Resp normal respiratory effort and clear to auscultation bilaterally Effort and Inspection: Negative for respiratory distress or pain with movement Auscultation: Negative for rhonchi, wheezes or diminished lung sounds Cardio regular rate, regular rhythm, S1 normal heart sound, S2 normal heart sound and no murmurs Peripheral Pulses: pulses 2+ throughout GI normal to inspection, nondistended, normoactive bowel sounds, soft to palpation, non-tender, non-distended and no masses Back/Spine no CVA tenderness and no thoracic nor lumbar tenderness Extremity normal to inspection General Extremety ED: Negative for edema General Extremity: Negative for edema Neuro oriented x3, CN's II-XII intact bilaterally, no sensory deficits noted and gait normal Sensorium / Orientation: awake, alert, oriented to person, oriented to place and oriented to time Motor Exam: strength 5/5 throughout and strength abnormal Psych mental status grossly normal Skin no rashes or lesions noted and no wounds Heart Score History: Highly Suspicious ECG: Nonspecific Repolarization Age: >/= 65 years Risk Factors: >/= 3 Risk Factors or History of CAD Troponin: </= Normal Limit Score: 7 MDM MDM MDM Narrative Medical decision making narrative: Discussed case with [facility] and they accepted transfer of patient to their facility. CTA of the chest was negative for dissection or PE. Noted was discitis and osteomyelitis at T12 and L1 which is consistent with patient's history. Patient presents with sudden onset of left-sided chest pain that he describes as pressure. He tells me he had a heart catheterization at the beginning of the month that showed blockages in the right coronary artery with collateral that may not be adequate. IV line established on arrival. Patient placed on a satellite project site monitor. EKG obtained showed atrial fibrillation with rate of [address] changes. CBC with differential patient work of 8.3 with hemoglobin 10.5 and platelet count of 260. Chemistries unremarkable. BUN 17 and creatinine 1.77. Troponin normal at 10. While in the department he initially was more comfortable with pain of 1 or 2 out of 10 but then the pain came back and now rates it an 8 out of 10. Will obtain a repeat EKG. will wait on the delta troponin. Description of pain concerning for potential acute coronary syndrome. Given his known history of right coronary artery stenosis. Will discuss possible transfer to [facility] for definitive care given that he was told that if he had to have a procedure he would need to go to a larger center. Lab Data Attestation: I reviewed the patient's lab results. Labs: Laboratory Results - last 24 hr 02/26/23 02/26/23 17:50 20:00 WBC 8.3 RBC 3.61 L Hgb 10.5 L Hct 32.7 L MCV 90.6 D MCH 29.1 MCHC 32.1 D RDW Std Deviation 51.1 H RDW Coeff of Abdiel 15.9 H Plt Count 260 MPV 9.4 Immature Gran % (Auto) 0.200 Neut % (Auto) 75.9 H Lymph % (Auto) 10.5 L Bartholomew % (Auto) 12.2 H Eos % (Auto) 1.0 Baso % (Auto) 0.2 Absolute Neuts (auto) 6.3 Absolute Lymphs (auto) 0.87 Nucleated RBC % 0 PT 21.1 H INR 1.8 Sodium 138 Potassium 3.8 Chloride 105 Carbon Dioxide 28.0 Anion Gap 5 BUN 17 Creatinine 1.77 H Estim Creat Clear Calc 38.83 Est GFR (MDRD) Af Amer 49 L Est GFR (MDRD) Non-Af 41 L BUN/Creatinine Ratio 9.6 L Glucose 105 Calcium 9.1 Troponin I High Sens 10 10 Radiography Diagnostic Testing: Clinical Impression(s) from Imaging Studies Chest X-Ray 02/26/23 17:56 IMPRESSION: No radiographic evidence of acute cardiopulmonary disease. Electronically Signed: Jabier Woo MD at 18:16 EST , Chest CTA 02/26/23 18:52 IMPRESSION: 1. No pulmonary embolus identified. 2. Stable 10 mm right lower lobe noncalcified pulmonary nodule. Likely benign post infectious etiology. Consider additional follow-up in 12-24 months to ensure long-term stability. 3. Findings of discitis and osteomyelitis at T12-L1 as described recent reports (recent CT abdomen and pelvis and MRI spine). 4. Mild basilar atelectasis and trace right pleural effusion. Electronically Signed: Jabier Woo MD at 20:00 EST , Discharge Plan Triage Chief Complaint: Chest Pain ED Provider: Armond Newman Dx/Rx/DC Orders Clinical Impression: Discitis, CKD (chronic kidney disease), History of hypertension, Chest pain Prescriptions: No Action hydroxychloroquine 200 mg tablet 200 mg PO BID (DME) Handicap Placard See Rx Instructions .Route .MEDSUPPLY Qty: 1 0RF Rx Instructions: Good from 07/05/2021-07/05/2026; multivitamin 1 TABLET tablet 1 tab PO DAILY citalopram 20 MG tablet 20 mg PO DAILY tamsulosin 0.4 MG capsule 0.4 mg PO DAILY esomeprazole magnesium 20 MG capsule 20 mg PO DAILY cod liver oil 1 EACH capsule 1 cap PO DAILY turmeric 400 MG capsule 450 mg PO DAILY mirtazapine 30 mg tablet 30 mg PO QHS cyclobenzaprine 10 mg tablet 10 mg PO Q8H PRN (Reason: muscle spasm) isosorbide mononitrate 60 mg tablet extended release 24 hr 60 mg PO BID meloxicam 7.5 mg tablet 7.5 mg PO DAILY metoprolol succinate 25 mg tablet extended release 24 hr 25 mg PO DAILY nitroglycerin 0.4 mg tablet, sublingual 0.4 mg sublingual Q5M PRN (Reason: chest pain) allopurinol 300 mg tablet 300 mg PO DAILY aspirin [Adult Aspirin Regimen] 81 mg tablet,delayed release (DR/EC) 81 mg PO DAILY ranolazine [Ranexa] 500 mg tablet extended release 12 hr 1,000 mg PO BID ceftriaxone 2 gram recon soln 2 g IV Q12H 40 Days Rx Instructions: dx: epidural abscess stop date 04/02/23 weekly bmp, cbc, and esr. Fax to [phone] oxycodone 5 mg Tablet 5 mg PO Q4H PRN PRN (Reason: Pain Score 4-6) 3 Days Qty: 10 0RF atorvastatin 80 mg tablet See Rx Instructions .ROUTE .COMPLEX Qty: 90 4RF Dose Instruction: TAKE 1 TABLET BY MOUTH AT BEDTIME Rx Instructions: TAKE 1 TABLET BY MOUTH AT BEDTIME warfarin 4 mg tablet 4 mg PO .COMPLEX Qty: 60 11RF Protocol: Dose Management Condition: Sunday Dose/Route: 4 mg Instruction: 1 x 4 mg tablet Condition: Sunday Dose/Route: 8 mg Instruction: 2 x 4 mg tablets Condition: Sunday Dose/Route: 8 mg Instruction: 2 x 4 mg tablets Condition: Sunday Dose/Route: 8 mg Instruction: 2 x 4 mg tablets Condition: Dose/Route: 8 mg Instruction: 2 x 4 mg tablets Condition: Sunday Dose/Route: 8 mg Instruction: 2 x 4 mg tablets Condition: Sunday Dose/Route: 4 mg Instruction: 1 x 4 mg tablet Protocol Text: Adjustment Start Date: Sunday02/12/23 INR Value: 1.6 INR Date: 02/12/23 Recheck Date: 02/19/23 Rx Instructions: 4 mg Sat/Sun and 8mg Sun-Sun; or as instructed Primary Care Provider: Cornell Gunter Referrals: Cornell Gunter MD [Primary Care Provider] - Disposition Disposition: DC/Tx to Another Type of HCF Discharge Location: [facility] Discharge Date/Time: 02/26/23 21:17
[2023-02-26 17:56] LABS: Absolute Lymphocyte Count 0.87 X10^3/uL (0.83-4.51); Absolute Neutrophil Count 6.3 X10^3/uL (2.0-7.7); Basophil# 0.02 X10^3/uL; Basophil% 0.2 % (0-1); Eosinophil# 0.08 X10^3/uL; Hematocrit 32.7 % (40-54); Hemoglobin 10.5 g/dL (13.0-16.5); Lymphocyte # 0.87 X10^3/ul (0.83-4.51); Lymphocyte % 10.5 % (19-41); Mean Corp Hgb Conc 32.1 g/dL (32-36); Mean Corpuscular Hgb 29.1 pg (27.0-32.0); Mean Corpuscular Volume 90.6 fL (80-94); Mean Platelet Vol. 9.4 fl (6.2-12.0); Monocyte# 1.01 X10^3/uL; Monocyte% 12.2 % (0-10); NRBC Flagged by Analyzer 0 % (0-5); Neutrophil # 6.28 X10^3/uL (2.7-7.7); Neutrophil % 75.9 % (47-70); Platelet Count 260 K/mm3 (150-450); RBC Distribution Width CV 15.9 % (11.6-14.6); RBC Distribution Width SD 51.1 fl (35.1-43.9); Red Blood Count 3.61 M/mm3 (4.6-6.2); White Blood Count 8.3 K/mm3 (4.4-11.0)
--- NOTE | 2023-02-26 17:56 | RAD_ITS ---
INDICATION: chest pain EXAMINATION/TECHNIQUE: X-RAY - AP view of chest COMPARISON: Chest x-ray from 09/01/2022 FINDINGS: LINES/DEVICES: None. LUNGS: No pulmonary edema or focal airspace consolidation. No sizable pleural effusion. No detectable pneumothorax. MEDIASTINUM AND CARDIOVASCULAR STRUCTURES: Heart size within normal limits. Atherosclerotic calcifications along aorta. BONES AND SOFT TISSUES: Skeletal degenerative changes. RAD/Chest 1 View (Portable) IMPRESSION: No radiographic evidence of acute cardiopulmonary disease. Electronically Signed: Jabier Woo MD at 18:16 EST ,
[2023-02-26] MEDS: 0.9% Normal Saline (1000mL) 1,000 ML 150 ML IV (18:00)
[2023-02-26 18:01] VITALS: BP 189/66; PULSE 65
[2023-02-26] MEDS: Nitroglycerin Oint 1 INCH PACKET TD (18:01)
[2023-02-26 18:04] VITALS: BP 189/66; PULSE 57; RESP 20; O2SAT 98
[2023-02-26 18:08] LABS: International Normalized Ratio 1.8; Prothrombin Time (Protime)PT. 21.1 SECONDS (11.7-14.9)
[2023-02-26 18:12] LABS: Anion Gap 5 (5-15); BUN 17 mg/dL (7-18); BUN/Creat Ratio 9.6 RATIO (10-20); Calcium,Total 9.1 mg/dL (8.5-10.1); Chloride 105 mmol/L (98-107); Creatinine, Serum 1.77 mg/dL (0.70-1.30); EST Glomerular Filtration Rate 41 mL/min (>60); Est Glom Filt Rate - Afr Amer 49 mL/min (>60); Estimated Creatinine Clearance 38.83 ml/min; Glucose 105 mg/dL (74-106); Potassium 3.8 mmol/L (3.5-5.1); Sodium Level 138 mmol/L (136-145); Troponin-I HS (w/2H Reflex) 10 pg/mL (3.0-78.0)
--- NOTE | 2023-02-26 18:31 | ED.RN ---
pt holding chest. c/o increased cp from 2 to 6/10. dr notified. repeat ekg ordered
[2023-02-26] MEDS: Ondansetron 4 MG/2 ML Vial IV (18:48)
[2023-02-26] MEDS: Morphine 4 MG/ML Syringe IV ×2 (18:48→20:49)
--- NOTE | 2023-02-26 18:52 | CT_ITS ---
STUDY: CTA CHEST REASON FOR EXAM: Male, 72 years old with left-sided chest pain. TECHNIQUE: CT angiogram of chest was performed with the intravenous administration of 100 ml [id number]-[id number]. Post-processing of the angiographic images was performed, with MIP and MPR reconstructions. Individualized dose optimization techniques were used for this CT. COMPARISON: CT abdomen and pelvis from 02/17/2023 and 10/27/2021 FINDINGS: PULMONARY ARTERIES: No pulmonary arterial filling defects identified. AORTA AND VISUALIZED GREAT VESSELS: Mild atherosclerosis with no thoracic aortic aneurysm or dissection. Great vessels are patent. Right PICC tip at upper cavoatrial junction. HEART AND PERICARDIUM: Normal size heart with coronary arterial calcifications. No significant pericardial effusion. MEDIASTINUM AND KEELY: No mediastinal or hilar adenopathy. Esophagus is unremarkable. LUNGS, PLEURA AND LARGE AIRWAYS: Mild bibasilar atelectasis with trace right pleural effusion. 10 mm noncalcified nodule within posteromedial right lower lobe stable size compared with exam from October 2021. No pulmonary edema or consolidation. No pneumothorax. CHEST WALL: No chest wall mass or acute findings. BONES: Compared with most recent exam, endplate erosive changes and adjacent vertebral cortical bone loss again noted at T12-L1 level with adjacent mild soft tissue swelling. UPPER ABDOMEN: No acute findings. CT/CTA Chest W/WO Contrast IMPRESSION: 1. No pulmonary embolus identified. 2. Stable 10 mm right lower lobe noncalcified pulmonary nodule. Likely benign post infectious etiology. Consider additional follow-up in 12-24 months to ensure long-term stability. 3. Findings of discitis and osteomyelitis at T12-L1 as described recent reports (recent CT abdomen and pelvis and MRI spine). 4. Mild basilar atelectasis and trace right pleural effusion. Electronically Signed: Jabier Woo MD at 20:00 EST ,
[2023-02-26 19:53] LABS: Reflex Troponin-HS? (from REC) Y
[2023-02-26] MEDS: Ceftriaxone 2 GM in 0.9% Normal Saline (50mL MB+) 50 ML IV (20:12)
[2023-02-26 20:29] LABS: Troponin-I HS 10 pg/mL (3.0-78.0)
[2023-02-26 20:41] VITALS: BP 181/69; PULSE 64; RESP 16; O2SAT 96
== END 2023-02-26 21:17 | disposition other institution (70) ==
PROVIDERS: Emergency Provider Emergency Medicine; PCP Family Medicine; Visit Provider Emergency Medicine
DX: M46.40 Discitis, unspecified, site unspecified (principal); I48.91 Unspecified atrial fibrillation; N18.30 Chronic kidney disease, stage 3 unspecified; E78.00 Pure hypercholesterolemia, unspecified; I12.9 Hypertensive chronic kidney disease with stage 1 through stage 4 chronic kidney disease, or unspecified chronic kidney disease; Z87.891 Personal history of nicotine dependence; I25.10 Atherosclerotic heart disease of native coronary artery without angina pectoris; R06.09 Other forms of dyspnea
CPT/HCPCS: 71045; 71275; 80048; 84484; 85025; 85610; 93005; 96361; 96365; 96375; 96376; 99285; J7030; Q9967; A4216; J0696; J2405

== ENCOUNTER 2023-04-11 17:38 | Inpatient (IN) | payer MEDICARE, OTHER, SELFPAY ==
[2023-04-11 17:40] VITALS: BP 124/69; PULSE 67; RESP 16; TEMP 36.6; O2SAT 98
[2023-04-11 18:11] VITALS: BMI 42.8
--- NOTE | 2023-04-11 19:46 | CT_ITS ---
STUDY: CT BRAIN WITHOUT CONTRAST REASON FOR EXAM: Male, 72 years old. weakness RADIATION DOSAGE (If Supplied By Facility): CTDIvol = ( 44.99 ) mGy, DLP = ( 5665.23 ) mGycm TECHNIQUE: Transaxial CT imaging of the brain was performed without administration of intravenous contrast material. Individualized dose optimization techniques were used for this CT. COMPARISON: No relevant priors. FINDINGS: Normal soft tissue structures. Normal calvarium. Normal size ventricles and extra-axial spaces for the patient''s age. Normal white matter tracts of the cerebral hemispheres. Normal basal ganglia and thalami. Normal brainstem. Normal cerebellum. There is no intracranial hemorrhage. There are no findings of an acute ischemic infarction. Normal visualized paranasal sinuses. CT/Brain/Head without Contrast IMPRESSION: Normal unenhanced CT scan of the brain. Electronically Signed: Rodrigo Wilhelm MD at 20:55 EST ,
--- NOTE | 2023-04-11 19:46 | CT_ITS ---
INDICATION: Back pain, history of osteomyelitis T12-L1 EXAMINATION: CT LUMBAR SPINE - CT Spine Lumbar W/O Contrast Injection TECHNIQUE: Helically acquired images were obtained of the lumbar spine. 2D reformats were reviewed. A radiation dose optimization technique was used for this scan. IV Contrast dosage and agent: None. RADIATION DOSAGE (If Supplied By Facility): CTDIvol = ( 45.59 ) mGy, DLP = ( 5665.23 ) mGycm COMPARISON: Prior study dated: Lumbar MRI 02/19/2023 FINDINGS: VERTEBRAE: Stable destructive endplate changes at T12 and L1 with osseous debris within the disc space. No acute fracture. Normal alignment. DISCS and SPINAL CANAL: Discoid disc space at T12-L1, diffuse loss of disc space throughout the lumbar spine. Poorly defined soft tissue at the T12-L1 level produces severe central and bilateral foraminal stenosis. Significant central stenosis due to annular bulge and osteophytes L2-3, L3-4, L4-5 and L5-S1. VISUALIZED ABDOMEN: Visualized abdominal aorta is not dilated. CT/Spine Lumbar without Contrast IMPRESSION: Persistent changes at T12-L1 consistent with osteomyelitis/discitis. Poorly defined soft tissue at that level produces severe central and foraminal stenosis. Degenerative disc disease with multilevel lumbar stenosis from L2-3 through L5-S1. Electronically Signed: Shree Cunningham MD at 21:13 EST ,
--- NOTE | 2023-04-11 19:46 | CT_ITS ---
STUDY: CT THORACIC SPINE WITHOUT CONTRAST REASON FOR EXAM: Male, 72 years old. pain RADIATION DOSAGE (If Supplied By Facility): CTDIvol = ( 59.03 ) mGy, DLP = ( 5665.23 ) mGycm TECHNIQUE: The patient was scanned in a multi detector CT scanner. High resolution imaging was performed. Images were obtained from to . Sagittal and coronal images were reconstructed. Individualized dose optimization techniques were used for this CT. COMPARISON: 02/26/2023. FINDINGS: There appears to be worsening of osteolysis of the inferior aspects of T12 superior aspect of L1, suggestive of worsening/progressive discitis. No evidence for acute injury, fracture, or malalignment. Normal kyphosis of the thoracic spine. There is no substantial scoliosis. There is multilevel endplate spondylosis of the thoracic spine. There is multilevel degenerative disc disease with loss of the disc space heights. Multilevel anterior ankylosis of the thoracic spine. The soft tissue structures are unremarkable. CT/Spine Thoracic without Contras IMPRESSION: Probable progressive osteolytic destruction at T12-L1 related to discitis. No fracture or dislocation. Degenerative changes. Electronically Signed: Rodrigo Wilhelm MD at 21:02 EST ,
--- NOTE | 2023-04-11 19:46 | CT_ITS ---
STUDY: CT CERVICAL SPINE WITHOUT CONTRAST REASON FOR EXAM: Male, 72 years old. pain RADIATION DOSAGE (If Supplied By Facility): CTDIvol = ( 35.11 ) mGy, DLP = ( 5665.23 ) mGycm TECHNIQUE: High resolution transaxial imaging was performed without contrast material. Sagittal and coronal images were reconstructed. Individualized dose optimization techniques were used for this CT. COMPARISON: None FINDINGS: Exam is limited by patient size which causes artifact and decreases resolution. No definite acute fracture/dislocation. The cervical junction is intact. C1-C2 articulation is intact. There is straightening There is normal alignment. Facet joints are intact at all levels bilaterally. No jumped facets. There is multilevel spondyloarthropathy. Multilevel degenerative disc disease seen. Multilevel loss of disc height. Multilevel anterior and posterior marginal osteophytes and disc bulges. Multilevel neural foraminal narrowing. Multilevel narrowing of the spinal canal. Visualized paraspinal soft tissues and structures are unremarkable. CT/Spine Cervical without Contras IMPRESSION: Limited by patient''s size. There is no definite acute fracture/dislocation. Degenerative changes. Electronically Signed: Rodrigo Wilhelm MD at 20:57 EST ,
--- NOTE | 2023-04-11 19:50 | EX.ED.DYSGE1 ---
HPI History of Present Illness Chief Complaint: General Illness Narrative Narrative: 72-year-old male presenting with debility. Patient states he has a history of discitis on MRI at T12-L1. There was epidural phlegmon/abscess. Cultures grew E. coli. Patient discharged home with a PICC line. He completed a course of antibiotics. Patient has been at [facility] where he is not doing physical therapy. His states that he is trying but unable to do any sort of physical therapy. He has not been out of bed in at least 3 weeks unless he is [place] and out of bed. and patient states that physical therapy does not even come to his room more assess him. believes that they should still be coming in rubbing his legs even if he cannot comply with physical therapy. Patient has not had any history of trauma or falls. He still continues to have back pain. No systemic signs such as fevers or chills. Apparently since the patient cannot participate in physical therapy his insurance will no longer pay for him to be in a [facility] facility so they discharged him and since they discharged him home his called EMS to have him transported to the ED for evaluation and treatment. [facility] Medical History Ambulates with cane Anxiety and depression Arthritis Atherosclerotic heart disease of [place] coronary artery without angina pectoris Atrial fibrillation Chronic UTI CKD (chronic kidney disease), stage III Depression Essential hypertension Former smoker GERD (gastroesophageal reflux disease) Gout History of left heart catheterization (LHC) (~07/29/19) alf (current) use of anticoagulants Morbid obesity LILI on CPAP Paroxysmal atrial fibrillation Polyarthritis Pure hypercholesterolemia Viral syndrome Wears glasses Home Medications citalopram 20 mg tablet 20 mg PO DAILY MOOD 09/21/14 [History Last Taken 02/16/23] multivitamin 1 tab PO DAILY SUPPLEMENT 09/21/14 [History Last Taken 02/16/23] esomeprazole magnesium 20 mg capsule,delayed release 20 mg PO DAILY 05/18/19 [History Last Taken 02/16/23] tamsulosin 0.4 mg capsule 0.4 mg PO DAILY bph 05/18/19 [History Last Taken 02/16/23] cod liver oil 1 cap PO DAILY arthritis 02/03/20 [History Last Taken 02/16/23] turmeric 400 mg capsule 500 mg PO DAILY arthritis 02/03/20 [History Last Taken 02/16/23] hydroxychloroquine 200 mg tablet 200 mg PO BID arthritis 04/25/21 [History Last Taken 02/16/23] Handicap Placard #1 ea 07/05/21 [Rx Last Taken Unknown] mirtazapine 30 mg tablet 30 mg PO QHS sleep 10/01/22 [History Last Taken 02/16/23] atorvastatin 80 mg tablet See Rx Instructions .Route .COMPLEX #90 tabs 11/21/22 [Rx Last Taken 02/16/23] allopurinol 300 mg tablet 300 mg PO DAILY PRN gout 02/17/23 [History Last Taken 02/16/23] isosorbide mononitrate 60 mg tablet,extended release 24 hr 60 mg PO BID heart 02/17/23 [History Last Taken 02/16/23] meloxicam 7.5 mg tablet 7.5 mg PO DAILY arthritis 02/17/23 [History Last Taken 02/16/23] metoprolol succinate 25 mg tablet,extended release 24 hr 50 mg PO DAILY heart 02/17/23 [History Last Taken 02/16/23] nitroglycerin 0.4 mg sublingual tablet 0.4 mg sublingual Q5M PRN chest pain 02/17/23 [History Last Taken Unknown] ranolazine 500 mg tablet,extended release,12 hr (Ranexa) 1,000 mg PO BID 02/17/23 [History Last Taken 02/16/23] oxycodone 5 mg tablet 5 mg PO Q4H PRN PRN Pain Score 4-6 3 days #10 tabs 02/22/23 [Rx Last Taken Unknown] clopidogrel 75 mg tablet 75 mg PO DAILY blood thinner 04/11/23 [History Last Taken Unknown] folic acid 1 mg tablet 1 mg PO DAILY vitamin 04/11/23 [History Last Taken Unknown] lidocaine 4 % topical patch (Lidocare) 1 patch topical DAILY pain 04/11/23 [History Last Taken Unknown] losartan 50 mg tablet 50 mg PO DAILY bp 04/11/23 [History Last Taken Unknown] ondansetron HCl 4 mg tablet 4 mg PO Q4H PRN nausea 04/11/23 [History Last Taken Unknown] pantoprazole 40 mg tablet,delayed release 40 mg PO Q12H stomach 04/11/23 [History Last Taken Unknown] sucralfate 1 gram tablet 1 g PO 4X/DAY stomach 04/11/23 [History Last Taken Unknown] warfarin 4 mg tablet 2.5 mg PO DAILY blood thinner 04/11/23 [History Last Taken Unknown] Allergy/AdvReac Type Severity Reaction Status Date / Time bee venom protein (honey bee) Allergy Hives Verified 04/11/23 17:46 amlodipine AdvReac Severe severe Verified 04/11/23 17:46 swelling in hands and feet spider venom AdvReac Other Verified 04/11/23 17:46 Family History Father Heart disease Diabetes CAD (coronary artery disease) History of coronary artery bypass surgery Cardiac pacemaker in situ Pure hypercholesterolemia Surgical History H/O umbilical hernia repair History of cystoscopy History of inguinal hernia repair, bilateral History of knee surgery History of total right knee replacement Social History household members: spouse Smoking Status: Former smoker how long ago did patient quit smokin alcohol intake: never substance use type: does not use caffeine: Yes Type: tea Number of servings: 2 ROS ROS ED Constitutional Constitutional ED: Denies chills, fever(s) or sweats Eyes Eyes: Denies blurry vision or change in vision ENT ENT ED: Denies ear pain or sore throat Cardiovascular Cardiovascular: Denies chest pain, palpitations or racing heartbeat Respiratory/Chest Respiratory/Chest: Denies cough, dyspnea or sputum Gastrointestinal Gastrointestinal: Denies abdominal pain, constipation, diarrhea, nausea or vomiting Genitourinary Genitourinary ED: Denies dysuria, hematuria or urinary frequency Musculoskeletal Musculoskeletal: Reports back pain; Denies arthralgias, myalgias or neck pain Integumentary Denies abscess, Abrasions or rash Neurologic Neurologic: Denies headache(s), paresthesias or weakness Psychiatric Psychiatric: Denies anxiety, depression, suicidal ideation or suicidal thoughts Endocrine Endocrinology: Denies polydipsia or polyuria EXAM Physical Exam Const Vital Signs: 04/11/23 17:40 04/11/23 18:12 04/11/23 20:18 Temperature 98 F Temperature Source Temporal Pulse Rate 67 61 Respiratory Rate 16 15 Respiratory Effort Normal Non-Labored Respiratory Pattern Normal Blood Pressure 124/69 H 143/61 H Blood Pressure Mean 87 88 Pulse Ox 98 99 Oxygen Delivery Method Room Air Room Air Positive well nourished and obese General Appearance ED: NAD; Negative for pallor Nutritional Appearance: obese HEENT Reports moist mucous membranes Eyes PERRL and EOMs intact bilaterally Resp normal respiratory effort Auscultation: Negative for rales or rhonchi Cardio regular rate and regular rhythm Back/Spine no CVA tenderness Extremity General Extremety ED: Negative for tenderness Neuro oriented x3 and CN's II-XII intact bilaterally Neuro Narrative: Patient able to lift both arms up off the bed and hold them up without drift. Patient is unable to lift his legs up off of the bed. He is able to move them slightly on the bed but no resistance to gravity. Sensation is intact throughout. Sensorium / Orientation: alert Motor Exam: general weakness Psych mental status grossly normal Skin no rashes or lesions noted General Skin Exam: Negative for jaundice or pallor MDM MDM MDM Narrative Medical decision making narrative: Patient presenting with debility. He has been bedbound for weeks.His is adamant his is adamant that he has had some sort of stroke and that is why he is not moving. She states he never had a stroke workup however I did review the medical record and found that he had a complete stroke workup at [facility] on the eighth. Patient does not recall having a CT of the brain. He and his both stated that they carried him over to the scanner and since they could not lift him up they did not do a CT scan. It does appear that he had a chest abdomen pelvis and there was indication of discitis. Patient was still being treated with Rocephin and a PICC line at that point. Patient has been back at his. At [facility] until today when he was discharged. His states that she cannot care for him at home like this and he is basically bedbound at this point. He has no complaints except for back pain and debility. Will obtain appropriate screening lab work and imaging of the spine as this is where he has had issues in the past and his main complaint. I do not see any evidence of cellulitis, rash, bruising over the back. We did roll the patient in the bed which she did not tolerate well secondary to pain. CBC shows mild leukocytosis at 11.8. Hemoglobin 9.4. This is near baseline. Platelets are normal at 327. Creatinine 1.51 which is actually improved. Electrolytes unremarkable. INR 2.0. LFTs normal with exception of direct bilirubin 1.32. Urinalysis shows positive nitrites. 0-5 epithelial cells and 1+ bacteria. Patient not having urinary tract infection symptoms. CT of the brain and cervical spine were ordered and these are negative. CT of the thoracic and lumbar spine identified worsening T12-L1 osteomyelitis/discitis. He does appear to be central and foraminal stenosis. Patient and counseled on findings. Spoke with the hospitalist who requested I speak with Dr. Phipps prior to the patient admitted. Did speak with him and he is amenable to seeing the patient has had a consult. Admitted in stable condition. Impression: 1. Debility 2. Discitis of L1 Lab Data Labs: Laboratory Results - last 24 hr 04/11/23 04/11/23 20:10 21:49 WBC 11.8 H RBC 3.23 L Hgb 9.4 L Hct 29.7 L MCV 92.0 MCH 29.1 MCHC 31.6 L RDW Std Deviation 61.2 H RDW Coeff of Abdiel 18.4 H Plt Count 327 MPV 9.5 Immature Gran % (Auto) 0.300 Neut % (Auto) 80.2 H Lymph % (Auto) 6.3 L Summers % (Auto) 12.8 H Eos % (Auto) 0.1 Baso % (Auto) 0.3 Absolute Neuts (auto) 9.5 H Absolute Lymphs (auto) 0.75 L Nucleated RBC % 0 Differential Comment SCANNED PT 22.8 H INR 2.0 Sodium 138 Potassium 4.4 Chloride 107 Carbon Dioxide 28.0 Anion Gap 3 L BUN 24 H Creatinine 1.51 H Estim Creat Clear Calc 61.23 Est GFR (MDRD) Af Amer 59 L Est GFR (MDRD) Non-Af 49 L BUN/Creatinine Ratio 15.9 Glucose 101 Calcium 9.2 Total Bilirubin 0.70 Direct Bilirubin 0.32 H AST 27 ALT 18 Alkaline Phosphatase 102 Total Creatine Kinase 57 Troponin I High Sens 15 Total Protein 7.2 Albumin 2.6 L Globulin 4.6 H Albumin/Globulin Ratio 0.6 L Urine Color Yellow Urine Clarity Clear Urine pH 6.5 Ur Specific [place] 1.020 Urine Protein 30 H Urine Glucose (UA) Normal Urine Ketones 5 H Urine Occult Blood Negative Urine Nitrite Positive H Urine Bilirubin 1 H Urine Urobilinogen 4 H Ur Leukocyte Esterase 25 H Urine RBC 0-5 SEEN Urine WBC 0-5 SEEN Ur Squamous Epith Cells 0-5 SEEN Calcium Oxalate Crystal RARE Urine Bacteria 1+ Urine Mucus 0 SEEN Radiography Diagnostic Testing: Clinical Impression(s) from Imaging Studies Brain CT 04/11/23 19:46 IMPRESSION: Normal unenhanced CT scan of the brain. Electronically Signed: Rodrigo Wilhelm MD at 20:55 EST , Cervical Spine CT 04/11/23 19:46 IMPRESSION: Limited by patient''s size. There is no definite acute fracture/dislocation. Degenerative changes. Electronically Signed: Rodrigo Wilhelm MD at 20:57 EST , Lumbar Spine CT 04/11/23 19:46 IMPRESSION: Persistent changes at T12-L1 consistent with osteomyelitis/discitis. Poorly defined soft tissue at that level produces severe central and foraminal stenosis. Degenerative disc disease with multilevel lumbar stenosis from L2-3 through L5-S1. Electronically Signed: Shree Cunningham MD at 21:13 EST , Thoracic Spine CT 04/11/23 19:46 IMPRESSION: Probable progressive osteolytic destruction at T12-L1 related to discitis. No fracture or dislocation. Degenerative changes. Electronically Signed: Rodrigo Wilhelm MD at 21:02 EST , Discharge Plan Triage Chief Complaint: General Illness ED Provider: Arley Sarmiento Dx/Rx/DC Orders Primary Care Provider: Cornell Gunter
[2023-04-11] MEDS: 0.9% Normal Saline (1000mL) 1,000 ML 999 ML IV (20:14)
[2023-04-11 20:18] VITALS: BP 143/61; PULSE 61; RESP 15; O2SAT 99
[2023-04-11 20:33] LABS: Prothrombin Time (Protime)PT. 22.8 SECONDS (11.7-14.9)
[2023-04-11 20:36] LABS: Absolute Lymphocyte Count 0.75 X10^3/uL (0.83-4.51); Absolute Neutrophil Count 9.5 X10^3/uL (2.0-7.7); Basophil# 0.03 X10^3/uL; Basophil% 0.3 % (0-1); Eosinophil# 0.01 X10^3/uL; Eosinophils% 0.1 % (0-5); Hematocrit 29.7 % (40-54); Hemoglobin 9.4 g/dL (13.0-16.5); Lymphocyte # 0.75 X10^3/ul (0.83-4.51); Lymphocyte % 6.3 % (19-41); Mean Corp Hgb Conc 31.6 g/dL (32-36); Mean Corpuscular Hgb 29.1 pg (27.0-32.0); Mean Platelet Vol. 9.5 fl (6.2-12.0); Monocyte# 1.52 X10^3/uL; Monocyte% 12.8 % (0-10); NRBC Flagged by Analyzer 0 % (0-5); Neutrophil # 9.49 X10^3/uL (2.7-7.7); Neutrophil % 80.2 % (47-70); POSITIVE DIFFERENTIAL YES; Platelet Count 327 K/mm3 (150-450); RBC Distribution Width CV 18.4 % (11.6-14.6); RBC Distribution Width SD 61.2 fl (35.1-43.9); Red Blood Count 3.23 M/mm3 (4.6-6.2); White Blood Count 11.8 K/mm3 (4.4-11.0)
[2023-04-11 20:42] LABS: ALB/GLOB Ratio 0.6 RATIO (0.9-2.4); AST(SGOT) 27 U/L (15-37); Alanine Aminotransfer ALT/SGPT 18 U/L (16-61); Albumin, Serum 2.6 g/dL (3.2-5.0); Alkaline Phosphatase 102 U/L (45-117); Anion Gap 3 (5-15); BUN 24 mg/dL (7-18); BUN/Creat Ratio 15.9 RATIO (10-20); Bilirubin, Direct 0.32 mg/dL (0.00-0.30); Calcium,Total 9.2 mg/dL (8.5-10.1); Chloride 107 mmol/L (98-107); Creatinine, Serum 1.51 mg/dL (0.70-1.30); EST Glomerular Filtration Rate 49 mL/min (>60); Est Glom Filt Rate - Afr Amer 59 mL/min (>60); Estimated Creatinine Clearance 61.23 ml/min; Globulin 4.6 g/dL (2.2-4.2); Glucose 101 mg/dL (74-106); Potassium 4.4 mmol/L (3.5-5.1); Protein, Total 7.2 g/dL (6.4-8.2); Sodium Level 138 mmol/L (136-145); Troponin-I HS 15 pg/mL (3.0-78.0)
[2023-04-11 20:52] LABS: CPK Total, Creatine Kinase 57 U/L (39-308)
[2023-04-11 20:56] LABS: Differential Comment SCANNED
[2023-04-11 20:57] LABS: Differential Indicated SCAN CRITERIA MET
[2023-04-11 21:53] LABS: Mucous, Urine 0 SEEN /hpf (<or=2+)
--- NOTE | 2023-04-11 21:59 | PCM.HP.STD ---
HPI - General General Date of Admission: 04/11/23 Date of Service: 04/11/23 Chief Complaint: Patient was discharged from residential after he ran out of the money. Patient not able to stand up or walk for 2 weeks HPI Narrative GUSTAVO HARTMAN, is a 72 M who was just discharged from residential today as he could not pay the bill and also he could not sit up or stand for 2 weeks but maybe 3 weeks as per ER physician documentation and then not brought to the ED as he is very debilitated and back pain. Patient was last admitted between 02/17/2023 to 02/22/2023 for lumbar spine discitis/osteomyelitis with acute compression fracture T12 and L1 with PICC line and was recommended 6 weeks course of IV ceftriaxone with biopsy culture showing pansensitive E. coli. At that time ID was consulted. Patient states he still has so much back pain that he could not lift his leg and could not get out of the bed. Patient urinary incontinence. He states that he has not moved bowel for about 1 week but as per probably 2 to 3 days. Denies any fever but looks chronically debilitated. Vitals in ED normal range. Labs and imaging reviewed. [facility] Medical History Ambulates with cane Anxiety and depression Arthritis Atherosclerotic heart disease of [place] coronary artery without angina pectoris Atrial fibrillation Chronic UTI CKD (chronic kidney disease), stage III Depression Essential hypertension Former smoker GERD (gastroesophageal reflux disease) Gout History of left heart catheterization (LHC) (~07/29/19) pen[facility]ent[facility] (current) use of anticoagulants Morbid obesity LILI on CPAP Paroxysmal atrial fibrillation Polyarthritis Pure hypercholesterolemia Viral syndrome Wears glasses Home Medications citalopram 20 mg tablet 20 mg PO DAILY MOOD 09/21/14 [History Last Taken 02/16/23] multivitamin 1 tab PO DAILY SUPPLEMENT 09/21/14 [History Last Taken 02/16/23] esomeprazole magnesium 20 mg capsule,delayed release 20 mg PO DAILY GERD 05/18/19 [History Last Taken 02/16/23] tamsulosin 0.4 mg capsule 0.4 mg PO DAILY bph 05/18/19 [History Last Taken 02/16/23] cod liver oil 1 cap PO DAILY arthritis 02/03/20 [History Last Taken 02/16/23] turmeric 400 mg capsule 500 mg PO DAILY arthritis 02/03/20 [History Last Taken 02/16/23] hydroxychloroquine 200 mg tablet 200 mg PO BID arthritis 04/25/21 [History Last Taken 02/16/23] Handicap Placard #1 ea 07/05/21 [Rx Last Taken Unknown] mirtazapine 30 mg tablet 30 mg PO QHS sleep 10/01/22 [History Last Taken 02/16/23] atorvastatin 80 mg tablet See Rx Instructions .Route .COMPLEX #90 tabs 11/21/22 [Rx Last Taken 02/16/23] allopurinol 300 mg tablet 300 mg PO DAILY PRN gout 02/17/23 [History Last Taken 02/16/23] isosorbide mononitrate 60 mg tablet,extended release 24 hr 60 mg PO BID heart 02/17/23 [History Last Taken 02/16/23] meloxicam 7.5 mg tablet 7.5 mg PO DAILY arthritis 02/17/23 [History Last Taken 02/16/23] metoprolol succinate 25 mg tablet,extended release 24 hr 50 mg PO DAILY heart 02/17/23 [History Last Taken 02/16/23] nitroglycerin 0.4 mg sublingual tablet 0.4 mg sublingual Q5M PRN chest pain 02/17/23 [History Last Taken Unknown] ranolazine 500 mg tablet,extended release,12 hr (Ranexa) 1,000 mg PO BID 02/17/23 [History Last Taken 02/16/23] oxycodone 5 mg tablet 5 mg PO Q4H PRN PRN Pain Score 4-6 3 days #10 tabs 02/22/23 [Rx Last Taken Unknown] clopidogrel 75 mg tablet 75 mg PO DAILY blood thinner 04/11/23 [History Last Taken Unknown] folic acid 1 mg tablet 1 mg PO DAILY vitamin 04/11/23 [History Last Taken Unknown] lidocaine 4 % topical patch (Lidocare) 1 patch topical DAILY pain 04/11/23 [History Last Taken Unknown] losartan 50 mg tablet 50 mg PO DAILY bp 04/11/23 [History Last Taken Unknown] ondansetron HCl 4 mg tablet 4 mg PO Q4H PRN nausea 04/11/23 [History Last Taken Unknown] pantoprazole 40 mg tablet,delayed release 40 mg PO Q12H stomach 04/11/23 [History Last Taken Unknown] sucralfate 1 gram tablet 1 g PO 4X/DAY stomach 04/11/23 [History Last Taken Unknown] warfarin 4 mg tablet 2.5 mg PO DAILY blood thinner 04/11/23 [History Last Taken Unknown] Allergy/AdvReac Type Severity Reaction Status Date / Time bee venom protein (honey bee) Allergy Hives Verified 04/11/23 17:46 amlodipine AdvReac Severe severe Verified 04/11/23 17:46 swelling in hands and feet spider venom AdvReac Other Verified 04/11/23 17:46 Family History Father Heart disease Diabetes CAD (coronary artery disease) History of coronary artery bypass surgery Cardiac pacemaker in situ Pure hypercholesterolemia Surgical History H/O umbilical hernia repair History of cystoscopy History of inguinal hernia repair, bilateral History of knee surgery History of total right knee replacement Social History household members: spouse Smoking Status: Former smoker how long ago did patient quit smokin alcohol intake: never substance use type: does not use caffeine: Yes Type: tea Number of servings: 2 ROS ROS Narrative 14 system ROS obtained. Constitutional: Reports fatigue and weakness. No fever. HEENT: Reports systems reviewed and no addt'l complaints, except as documented Respiratory/Chest: No acute shortness of breath or respiratory distress or wheezing. CVS: Denies chest pain pressure or tightness. Gastrointestinal: Denies coffee ground emesis, hematemesis or vomiting. No abdominal pain Genitourinary: Chronic no incontinence denies burning urination or new urinary tract symptoms Musculoskeletal: Bilateral lower extremity pain on lifting. Could not stand up or even lift up lower extremities. No acute injury Neurologic: Denies seizure-like symptoms. skin: No ulcer. No rash Endocrinology: Reports systems reviewed and no addt'l complaints, except as documented Hematologic/Lymphatic: Reports systems reviewed and no addt'l complaints, except as documented Rest 14 ROS are negative except as mentioned in HPI Vital Signs Vital Signs Vital Signs: 04/11/23 17:40 04/11/23 18:12 04/11/23 20:18 Temperature 98 F Temperature Source Temporal Pulse Rate 67 61 Respiratory Rate 16 15 Respiratory Effort Normal Non-Labored Respiratory Pattern Normal Blood Pressure 124/69 H 143/61 H Blood Pressure Mean 87 88 Pulse Ox 98 99 Oxygen Delivery Method Room Air Room Air Weight Weight: 290 lb 5.581 oz Body Mass Index (BMI) 42.8 Physical Exam Narrative General: Alert, Oriented x3, Cooperative. Morbid obesity BMI 41.8 kg/m? HEENT: Atraumatic, PERRLA, EOMI, Normocephalic Oral: Oral mucosa dry. No Gingival or Mucosal Lesions/ Ulcerations Neck: Supple, No JVD, Negative Carotid Bruits Chest wall/Lungs: Air entry diminished in bilateral lung bases. No crepitation/rhonchi Cardiovascular: Regular rate, Regular Rhythm, Normal S1, Normal S2, No M/G/R Abdomen: Bowel Sounds Present, Soft, Non Tender, Non-Distended : No dysuria. No renal angle tenderness. No suprapubic tenderness. Extremities: Mild bilateral lower extremity pitting edema, Capillary Refill Less than 3 Seconds Skin: No rashes, No breakdown Musculoskeletal: Muscle strength 3/5 in both hips and knee joints. Stiffness, pain, and rigidity on lifting lower extremities. ROM restricted. Spine: Patient could not turn around or sit up to examine back. Seems upper motor neuron with stiffness, muscle spasticity and paraplegia. Neurological: Cranial nerves II-XII grossly intact, DTR 2+/4. Upper motor neuron lesion. Psych/Mental Status: Flat affect. Results Lab / Micro Data 04/11/23 20:10 04/11/23 20:10 Labs: Laboratory Results - last 24 hr 04/11/23 20:10: WBC 11.8 H, RBC 3.23 L, Hgb 9.4 L, Hct 29.7 L, MCV 92.0, MCH 29.1, MCHC 31.6 L, RDW Std Deviation 61.2 H, RDW Coeff of Abdiel 18.4 H, Plt Count 327, MPV 9.5, Immature Gran % (Auto) 0.300, Neut % (Auto) 80.2 H, Lymph % (Auto) 6.3 L, [place] % (Auto) 12.8 H, Eos % (Auto) 0.1, Baso % (Auto) 0.3, Absolute Neuts (auto) 9.5 H, Absolute Lymphs (auto) 0.75 L, Nucleated RBC % 0, Differential Comment SCANNED, PT 22.8 H, INR 2.0, Sodium 138, Potassium 4.4, Chloride 107, Carbon Dioxide 28.0, Anion Gap 3 L, BUN 24 H, Creatinine 1.51 H, Estim Creat Clear Calc 61.23, Est GFR (MDRD) Af Amer 59 L, Est GFR (MDRD) Non-Af 49 L, BUN/Creatinine Ratio 15.9, Glucose 101, Calcium 9.2, Total Bilirubin 0.70, Direct Bilirubin 0.32 H, AST 27, ALT 18, Alkaline Phosphatase 102, Total Creatine Kinase 57, Troponin I High Sens 15, Total Protein 7.2, Albumin 2.6 L, Globulin 4.6 H, Albumin/Globulin Ratio 0.6 L Imaging Radiology Impression Brain CT 04/11/23 19:46 IMPRESSION: Normal unenhanced CT scan of the brain. Electronically Signed: Rodrigo Wilhelm MD at 20:55 EST , Cervical Spine CT 04/11/23 19:46 IMPRESSION: Limited by patient''s size. There is no definite acute fracture/dislocation. Degenerative changes. Electronically Signed: Rodrigo Wilhelm MD at 20:57 EST , Lumbar Spine CT 04/11/23 19:46 IMPRESSION: Persistent changes at T12-L1 consistent with osteomyelitis/discitis. Poorly defined soft tissue at that level produces severe central and foraminal stenosis. Degenerative disc disease with multilevel lumbar stenosis from L2-3 through L5-S1. Electronically Signed: Shree Cunningham MD at 21:13 EST , Thoracic Spine CT 04/11/23 19:46 IMPRESSION: Probable progressive osteolytic destruction at T12-L1 related to discitis. No fracture or dislocation. Degenerative changes. Electronically Signed: Rodrigo Wilhelm MD at 21:02 EST , Assessment & Plan Assessment/Plan (1) Discitis of lumbar region: (2) Intractable low back pain: PLAN: Plan This is 72-year-old gentleman being admitted for chronic lower back pain with lumbar spine discitis/osteomyelitis from previous admission in February 2023. 1. Intractable lower back pain with debilitation, paraplegia, possible upper motor neuron lesion (muscle spasticity)most likely due to lumbar spine discitis: Patient had compression fracture of T12 and L1 setting of his spinal osteomyelitis and discitis. Thoracic spine CT shows probable progressive osteolytic destruction of T12 and L1 related to discitis. No fracture or dislocation or degenerative changes. Lumbar spine CT shows similar finding but in addition poorly defined soft tissue at T12-L1 level producing severe central canal and foraminal stenosis. C-spine limited at patient's side but no definite acute fracture or dislocation. CT brain was normal. Deep wound culture on 02/20/2023 shows E. coli pansensitive. IV ceftriaxone 2 g IV daily is started. Blood cultures x 2 ordered. ID consult for further recommendation. ED physician consulted Dr. Phipps setting will see tomorrow who has seen him during previous hospitalization February and recommended no operative intervention.Patient has mild leukocytosis with 30% neutrophil. 2. Generalized debility with deconditioning due to pain and paraplegia: Pain control. PT and OT ordered. Muscle relaxant ordered. 3. Paroxysmal A-fib: Twelve-lead EKG was done shows normal sinus rhythm 61 with occasional supraventricular complexes. QTc 473 ms. Patient on warfarin. INR 2.0 therapeutic. 4. CAD, hypertension, dyslipidemia: Patient on clopidogrel, metoprolol, losartan and ranolazine continued. 5. Gastritis/GERD/PUD: Patient on pantoprazole and sucralfate, continued. 6. CKD stage III A: Patient creatinine 1.5 is better than previous 1.7-1.8. Continue losartan. Possible BPH with chronic urinary incontinence/bladder outlet obstruction: Patient on tamsulosin continued. 7. Other chronic comorbidities include anxiety depression, debilitation, failure to thrive: application architect manager consult. Patient on mirtazapine 30 mg daily, dose decreased to 15 mg daily. Hold Plaquenil for drug interaction with mirtazapine and ondansetron and other medications. 8. Morbid obesity: BMI 41.8 kg/m?. Business Performance Manager consult and weight loss recommended. Living will/advanced directive/end of life care: Patient does have living will or advanced directive. His in the ED is power of health care attorney for health after discussion of benefits/risks procedures involved with full code, DNR CC arrest and DNR CC, the patient opted for full code. Patient does want artificial life support including intubation, tube feed, ventilator and/chest compression, central venous catheter, vasopressor and DC shock if needed Total time spent in [id number] encounter in discussion of advanced directive 17 minutes. Laboratory Results 04/11/23 20:10: WBC 11.8 H, RBC 3.23 L, Hgb 9.4 L, Hct 29.7 L, MCV 92.0, MCH 29.1, MCHC 31.6 L, RDW Std Deviation 61.2 H, RDW Coeff of Abdiel 18.4 H, Plt Count 327, MPV 9.5, Immature Gran % (Auto) 0.300, Neut % (Auto) 80.2 H, Lymph % (Auto) 6.3 L, [place] % (Auto) 12.8 H, Eos % (Auto) 0.1, Baso % (Auto) 0.3, Absolute Neuts (auto) 9.5 H, Absolute Lymphs (auto) 0.75 L, Nucleated RBC % 0, Differential Comment SCANNED PT 22.8 H, INR 2.0, Sodium 138, Potassium 4.4, Chloride 107, Carbon Dioxide 28.0, Anion Gap 3 L, BUN 24 H, Creatinine 1.51 H, Estim Creat Clear Calc 61.23, Est GFR (MDRD) Af Amer 59 L, Est GFR (MDRD) Non-Af 49 L, BUN/Creatinine Ratio 15.9, Glucose 101, Calcium 9.2, Total Bilirubin 0.70, Direct Bilirubin 0.32 H, AST 27, ALT 18, Alkaline Phosphatase 102, Total Creatine Kinase 57, Troponin I High Sens 15, Total Protein 7.2, Albumin 2.6 L, Globulin 4.6 H, Albumin/Globulin Ratio 0.6 L 04/11/23 21:49: Urine Color Yellow, Urine Clarity Clear, Urine pH 6.5, Ur Specific [place] 1.020, Urine Protein 30 H, Urine Glucose (UA) Normal, Urine Ketones 5 H, Urine Occult Blood Negative, Urine Nitrite Positive H, Urine Bilirubin 1 H, Urine Urobilinogen 4 H, Ur Leukocyte Esterase 25 H, Urine RBC 0-5 SEEN, Urine WBC 0-5 SEEN, Ur Squamous Epith Cells 0-5 SEEN, Calcium Oxalate Crystal RARE, Urine Bacteria 1+, Urine Mucus 0 SEEN Clinical Impression(s) from Imaging Studies Brain CT 04/11/23 19:46 IMPRESSION: Normal unenhanced CT scan of the brain. Cervical Spine CT 04/11/23 19:46 IMPRESSION: Limited by patient''s size. There is no definite acute fracture/dislocation. Degenerative changes. Lumbar Spine CT 04/11/23 19:46 IMPRESSION: Persistent changes at T12-L1 consistent with osteomyelitis/discitis. Poorly defined soft tissue at that level produces severe central and foraminal stenosis. Degenerative disc disease with multilevel lumbar stenosis from L2-3 through L5-S1. Thoracic Spine CT 04/11/23 19:46 IMPRESSION: Probable progressive osteolytic destruction at T12-L1 related to discitis. No fracture or dislocation. Degenerative changes. Charges/Coding Visit Charges Inpatient E&M: 12617 Init Hosp L3 Procedures Hospitalists Procedures: 19704 Advncd Care Plan 30 Min
[2023-04-11 22:05] LABS: Color, Urine Yellow (Yellow); Glucose, Dipstick Normal (Normal); Ketone-Dipstick 5 mg/dl (Negative); Leukocyte Esterase-Dipstick 25 /ul (Negative); Nitrite-Dipstick Positive (Negative); Occult Blood-Urine Negative /ul (Negative); Protein-Dipstick 30 mg/dl (Negative); Urine Bilirubin Dipstick 1 mg/dL (Negative); Urine Clarity Clear (Clear); Urine Urobilinogen 4 mg/dl (Normal); Urine pH 6.5 (5.0 - 8.0)
[2023-04-11 22:06] VITALS: BP 164/59; PULSE 66; RESP 15; O2SAT 99
[2023-04-11 22:12] LABS: Bacteria 1+ /hpf (None Seen); Red Blood Cells-Urine 0-5 SEEN /hpf (0-5); Squamous Epithelial Cells - UA 0-5 SEEN /hpf (0-5); White Blood Cells 0-5 SEEN /hpf (0-5)
[2023-04-11 22:13] LABS: Calcium Oxalate Crystals Ur RARE /hpf (<or=2+)
[2023-04-11 23:14] VITALS: BMI 41.8
[2023-04-11 23:21] VITALS: BP 164/57; PULSE 62; RESP 20; TEMP 36.6; O2SAT 97
[2023-04-11 23:45] VITALS: RESP 20; O2SAT 97
--- NOTE | 2023-04-12 00:29 | MRI_ITS ---
HISTORY: T12-L1 discitis/osteomyelitis. TECHNIQUE: Multiplanar and multisequence MR images of the lumbar spine were obtained without intravenous contrast. 165 images. COMPARISON: CT prior day. MRI 02/19/2023. FINDINGS: VERTEBRAE: Extensive bone marrow edema of the T12 and L1 vertebral bodies with endplate erosion and abnormal fluid signal of the intervertebral disc again seen. Other vertebral body heights maintained with degenerative endplate changes noted. ALIGNMENT: No anterior or posterior subluxation. SPINAL CANAL: Ventral epidural collection of T12-L1 markedly decreased in size. Normal morphology and position of the conus medullaris at T12-L1. INTERVERTEBRAL DISCS: Mild posterior disc bulge osteophyte complexes with facet arthropathy at multiple levels. T12-L1: Decreased left nerve root impingement. Mild central canal stenosis. Mild-moderate bilateral foraminal narrowing, increased from prior. L1-2: Mild central canal stenosis and mild-moderate bilateral foraminal narrowing. L2-3: Moderate central canal stenosis and bilateral foraminal narrowing. L3-4: Moderate-severe central canal stenosis with bilateral L4 nerve root abutment and bilateral foraminal narrowing. L4-5: Mild-moderate central canal stenosis moderate to severe right foraminal narrowing with right L4 nerve root abutment and moderate left foraminal narrowing. L5-S1: Mild central canal stenosis and bilateral foraminal narrowing SOFT TISSUES: Right paraspinal edema and 1.2 x 2.2 x 3.5 cm complex collection. Left paraspinal edema. Posterior subcutaneous and intramuscular edema. Bilateral renal cysts. MRI/Spine Lumbar (Routine) IMPRESSION: T12-L1 osteomyelitis-discitis with bilateral paraspinal edema and right paraspinal collection, concerning for psoas abscess. Postcontrast imaging may be helpful. Near complete resolution of T12-L1 epidural phlegmon or abscess. Multilevel degenerative disc disease as above. Electronically Signed: Angela David MD at 10:51 EST ,
[2023-04-12 00:55] LABS: Magnesium 2.2 mg/dL (1.6-2.6)
[2023-04-12] MEDS: oxyCODONE 5 MG Tablet PO ×2 (01:08→21:47)
[2023-04-12] MEDS: Acetaminophen 325 MG Tablet 650 MG PO ×2 (01:08→21:47)
[2023-04-12] MEDS: Senna/Docusate Sodium 1 Tablet 2 TABLET PO ×3 (01:09→21:00)
[2023-04-12] MEDS: Ceftriaxone 2 GM in 0.9% Normal Saline (50mL MB+) 50 ML IV ×3 (01:09→21:00)
[2023-04-12] MEDS: Pantoprazole Sodium 40 MG Tablet PO ×3 (01:10→21:01)
[2023-04-12 04:06] VITALS: BP 127/57; PULSE 67; RESP 18; TEMP 36.6; O2SAT 96
[2023-04-12 04:08] VITALS: RESP 18; O2SAT 96
[2023-04-12 05:41] VITALS: BMI 41.8
--- NOTE | 2023-04-12 05:55 | MRI_ITS ---
STUDY: MRI THORACIC SPINE WITHOUT CONTRAST REASON FOR EXAM: Male, 72 years old. T12-L1 discitis/osteomyelitis -- Central canal/foraminal canal stenosis TECHNIQUE: Standardized fat and water weighted pulse sequences were obtained in the sagittal and axial planes. COMPARISON: February 19, 2023 FINDINGS: Normal kyphosis of the thoracic spine. There is no substantial scoliosis. No evidence for acute fracture or subluxation. Mild multilevel disc space narrowing and disc degeneration without significant disc protrusion spinal stenosis or cord compression . Normal central canal and intervertebral neural foramina at the corresponding levels. However at T12-L1 there is diffuse low signal intensity seen within the vertebral bodies and disks on T1 with increased signal intensity on both T2 and STIR imaging sequences which may be consistent with osteomyelitis and discitis. There also appears to be mild phlegmonous changes or small abscess in the right psoas bundle There is reduction in inflammatory changes when compared with previous study.. Previously noted small epidural abscess is not visualized at this time. There is no mass effect upon the distal cord although there does appear to be some very subtle distortion of the distal conus likely due to postinflammatory scarring.. Limited repeat study of the distal cord with contrast would be helpful for further evaluation. The soft tissue structures are unremarkable. MRI/Spine Thoracic (Routine) IMPRESSION: Findings consistent with consistent with osteomyelitis and discitis at T12-L1 with right psoas abscess. No evidence for epidural empyema at this time.. No significant spinal stenosis or cord compression although there does appear to be distortion of the distal conus possibly on the basis of scarring Limited repeat study this level with contrast may be helpful for further evaluation Electronically Signed: Hal Woods MD at 22:41 EST Reading Location ID and State: [address] [place] [address] Tel , Service support ,
[2023-04-12] MEDS: Sucralfate 1 GM Tablet PO ×4 (06:46→21:01)
[2023-04-12 07:30] LABS: Basophil# 0.02 X10^3/uL; Basophil% 0.2 % (0-1); Eosinophil# 0.01 X10^3/uL; Eosinophils% 0.1 % (0-5); Hematocrit 28.2 % (40-54); Hemoglobin 8.8 g/dL (13.0-16.5); Lymphocyte % 8.6 % (19-41); Mean Corp Hgb Conc 31.2 g/dL (32-36); Mean Corpuscular Hgb 28.8 pg (27.0-32.0); Mean Corpuscular Volume 92.2 fL (80-94); Monocyte# 1.56 X10^3/uL; Monocyte% 14.9 % (0-10); NRBC Flagged by Analyzer 0 % (0-5); Neutrophil # 7.97 X10^3/uL (2.7-7.7); Neutrophil % 75.9 % (47-70); POSITIVE DIFFERENTIAL YES; Platelet Count 318 K/mm3 (150-450); RBC Distribution Width CV 18.2 % (11.6-14.6); RBC Distribution Width SD 60.9 fl (35.1-43.9); Red Blood Count 3.06 M/mm3 (4.6-6.2); White Blood Count 10.5 K/mm3 (4.4-11.0)
--- NOTE | 2023-04-12 07:39 | CONS.ORTHO ---
HPI Consult Data Date of Consult: 04/12/23 HPI Narrative HPI Narrative: The patient is a 72-year-old male known to myself. Had recent admission for discitis which was treated with antibiotics. He is currently admitted for intractable back pain with weakness in the lower extremities and inability to ambulate. Upon exam he is lying in bed resting comfortably. He does complain of pain in the thoracolumbar region with movement. Sensation intact grossly in the lower extremities but he does complain of weakness in the legs with inability to stand and ambulate. 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 Morbid obesity LILI on CPAP Paroxysmal atrial fibrillation Polyarthritis Pure hypercholesterolemia Viral syndrome Wears glasses Home Medications citalopram 20 mg tablet 20 mg PO DAILY MOOD 09/21/14 [History Last Taken 02/16/23] multivitamin 1 tab PO DAILY SUPPLEMENT 09/21/14 [History Last Taken 02/16/23] esomeprazole magnesium 20 mg capsule,delayed release 20 mg PO DAILY GERD 05/18/19 [History Last Taken 02/16/23] tamsulosin 0.4 mg capsule 0.4 mg PO DAILY bph 05/18/19 [History Last Taken 02/16/23] cod liver oil 1 cap PO DAILY arthritis 02/03/20 [History Last Taken 02/16/23] turmeric 400 mg capsule 500 mg PO DAILY arthritis 02/03/20 [History Last Taken 02/16/23] hydroxychloroquine 200 mg tablet 200 mg PO BID arthritis 04/25/21 [History Last Taken 02/16/23] Handicap Placard #1 ea 07/05/21 [Rx Last Taken Unknown] mirtazapine 30 mg tablet 30 mg PO QHS sleep 10/01/22 [History Last Taken 02/16/23] atorvastatin 80 mg tablet See Rx Instructions .Route .COMPLEX #90 tabs 11/21/22 [Rx Last Taken 02/16/23] allopurinol 300 mg tablet 300 mg PO DAILY PRN gout 02/17/23 [History Last Taken 02/16/23] isosorbide mononitrate 60 mg tablet,extended release 24 hr 60 mg PO BID heart 02/17/23 [History Last Taken 02/16/23] meloxicam 7.5 mg tablet 7.5 mg PO DAILY arthritis 02/17/23 [History Last Taken 02/16/23] metoprolol succinate 25 mg tablet,extended release 24 hr 50 mg PO DAILY heart 02/17/23 [History Last Taken 02/16/23] nitroglycerin 0.4 mg sublingual tablet 0.4 mg sublingual Q5M PRN chest pain 02/17/23 [History Last Taken Unknown] ranolazine 500 mg tablet,extended release,12 hr (Ranexa) 1,000 mg PO BID 02/17/23 [History Last Taken 02/16/23] oxycodone 5 mg tablet 5 mg PO Q4H PRN PRN Pain Score 4-6 3 days #10 tabs 02/22/23 [Rx Last Taken Unknown] clopidogrel 75 mg tablet 75 mg PO DAILY blood thinner 04/11/23 [History Last Taken Unknown] folic acid 1 mg tablet 1 mg PO DAILY vitamin 04/11/23 [History Last Taken Unknown] lidocaine 4 % topical patch (Lidocare) 1 patch topical DAILY pain 04/11/23 [History Last Taken Unknown] losartan 50 mg tablet 50 mg PO DAILY bp 04/11/23 [History Last Taken Unknown] ondansetron HCl 4 mg tablet 4 mg PO Q4H PRN nausea 04/11/23 [History Last Taken Unknown] pantoprazole 40 mg tablet,delayed release 40 mg PO Q12H stomach 04/11/23 [History Last Taken Unknown] sucralfate 1 gram tablet 1 g PO 4X/DAY stomach 04/11/23 [History Last Taken Unknown] warfarin 4 mg tablet 2.5 mg PO DAILY blood thinner 04/11/23 [History Last Taken Unknown] Allergy/AdvReac Type Severity Reaction Status Date / Time bee venom protein (honey bee) Allergy Hives Verified 04/11/23 17:46 amlodipine AdvReac Severe severe Verified 04/11/23 17:46 swelling in hands and feet spider venom AdvReac Other Verified 04/11/23 17:46 Family History Father Heart disease Diabetes CAD (coronary artery disease) History of coronary artery bypass surgery Cardiac pacemaker in situ Pure hypercholesterolemia Surgical History H/O umbilical hernia repair History of cystoscopy History of inguinal hernia repair, bilateral History of knee surgery History of total right knee replacement Social History household members: spouse Smoking Status: Former smoker how long ago did patient quit smokin alcohol intake: never substance use type: does not use caffeine: Yes Type: tea Number of servings: 2 Vital Signs Vital Signs Vital Signs: 04/11/23 17:40 04/11/23 18:12 04/11/23 20:18 Temperature 98 F Temperature Source Temporal Pulse Rate 67 61 Respiratory Rate 16 15 Respiratory Effort Normal Non-Labored Respiratory Depth Respiratory Pattern Normal Blood Pressure 124/69 H 143/61 H Blood Pressure Mean 87 88 Blood Pressure Source Blood Pressure Position Blood Pressure Location Pulse Ox 98 99 Oxygen Delivery Method Room Air Room Air 04/11/23 22:06 04/11/23 23:21 04/11/23 23:45 Temperature 98 F Temperature Source Oral Pulse Rate 66 62 Respiratory Rate 15 20 H 20 H Respiratory Effort Normal Non-Labored Respiratory Depth Normal Respiratory Pattern Tachypnea Blood Pressure 164/59 H 164/57 H Blood Pressure Mean 94 92 Blood Pressure Source Monitor Blood Pressure Position Semi-Fowlers Blood Pressure Location Left Forearm Pulse Ox 99 97 97 Oxygen Delivery Method Room Air Room Air 04/12/23 04:06 04/12/23 04:08 Temperature 97.9 F Temperature Source Oral Pulse Rate 67 Respiratory Rate 18 18 Respiratory Effort Normal Non-Labored Respiratory Depth Normal Respiratory Pattern Normal Blood Pressure 127/57 H Blood Pressure Mean 80 Blood Pressure Source Monitor Blood Pressure Position Semi-Fowlers Blood Pressure Location Left Forearm Pulse Ox 96 96 Oxygen Delivery Method Room Air Room Air Weight Weight: 282 lb 13.649 oz Body Mass Index (BMI) 41.8 Physical Exam Const alert, oriented x3 and no apparent distress General Appearance: cooperative, comfortable and well kempt Orientation / Consciousness: awake, oriented to person, oriented to place and oriented to time HEENT normocephalic and head/scalp atraumatic Eyes EOMs intact bilaterally and conjunctivae normal Neck full ROM General: normal visual inspection Chest inspection of chest normal and palpation of chest normal Resp normal respiratory effort and normal air movement Effort and Inspection: able to speak in complete sentences Cardio regular rate and peripheral pulses 2+ throughout GI soft to palpation, non-tender and non-distended Back/Spine Cervical Spine: cervical ROM normal Thoracic Spine / Upper Back: normal to inspection Lumbar Spine / Lower Back: normal to inspection Extremity Extremity Narrative: Examination of the lower extremity shows sensation to be intact grossly bilaterally, but the patient does describe global decrease sensation in the bilateral lower extremities. Patellar and Achilles reflexes diminished bilaterally. No upper motor neuron signs. 3- out of 5 strength in bilateral hip flexion and knee extension. 4 out of 5 strength in bilateral EHL and dorsiflexion and plantarflexion Neuro oriented x3, CN's II-XII intact bilaterally and moves all extremities Neuro Narrative: Lower extremity examination as above. Examination of the upper extremity shows sensation and motor to be intact grossly. Normal functional strength throughout the bilateral upper extremities. Pulses and reflexes normal. No upper motor neuron signs Motor Exam: muscle tone normal throughout Lab / Micro Data 04/11/23 20:10 04/11/23 20:10 Labs: Laboratory Results - last 24 hr 04/11/23 20:10: WBC 11.8 H, RBC 3.23 L, Hgb 9.4 L, Hct 29.7 L, MCV 92.0, MCH 29.1, MCHC 31.6 L, RDW Std Deviation 61.2 H, RDW Coeff of Abdiel 18.4 H, Plt Count 327, MPV 9.5, Immature Gran % (Auto) 0.300, Neut % (Auto) 80.2 H, Lymph % (Auto) 6.3 L, [place] % (Auto) 12.8 H, Eos % (Auto) 0.1, Baso % (Auto) 0.3, Absolute Neuts (auto) 9.5 H, Absolute Lymphs (auto) 0.75 L, Nucleated RBC % 0, Differential Comment SCANNED, Diff Path Review July foll, PT 22.8 H, INR 2.0, Sodium 138, Potassium 4.4, Chloride 107, Carbon Dioxide 28.0, Anion Gap 3 L, BUN 24 H, Creatinine 1.51 H, Estim Creat Clear Calc 61.23, Est GFR (MDRD) Af Amer 59 L, Est GFR (MDRD) Non-Af 49 L, BUN/Creatinine Ratio 15.9, Glucose 101, Calcium 9.2, Magnesium 2.2, Total Bilirubin 0.70, Direct Bilirubin 0.32 H, AST 27, ALT 18, Alkaline Phosphatase 102, Total Creatine Kinase 57, Troponin I High Sens 15, Total Protein 7.2, Albumin 2.6 L, Globulin 4.6 H, Albumin/Globulin Ratio 0.6 L 04/11/23 21:49: Urine Color Yellow, Urine Clarity Clear, Urine pH 6.5, Ur Specific [place] 1.020, Urine Protein 30 H, Urine Glucose (UA) Normal, Urine Ketones 5 H, Urine Occult Blood Negative, Urine Nitrite Positive H, Urine Bilirubin 1 H, Urine Urobilinogen 4 H, Ur Leukocyte Esterase 25 H, Urine RBC 0-5 SEEN, Urine WBC 0-5 SEEN, Ur Squamous Epith Cells 0-5 SEEN, Calcium Oxalate Crystal RARE, Urine Bacteria 1+, Urine Mucus 0 SEEN Imaging Radiology Impression Brain CT 04/11/23 19:46 IMPRESSION: Normal unenhanced CT scan of the brain. Electronically Signed: Rodrigo Wilhelm MD at 20:55 EST , Cervical Spine CT 04/11/23 19:46 IMPRESSION: Limited by patient''s size. There is no definite acute fracture/dislocation. Degenerative changes. Electronically Signed: Rodrigo Wilhelm MD at 20:57 EST , Lumbar Spine CT 04/11/23 19:46 IMPRESSION: Persistent changes at T12-L1 consistent with osteomyelitis/discitis. Poorly defined soft tissue at that level produces severe central and foraminal stenosis. Degenerative disc disease with multilevel lumbar stenosis from L2-3 through L5-S1. Electronically Signed: Shree Cunningham MD at 21:13 EST , Thoracic Spine CT 04/11/23 19:46 IMPRESSION: Probable progressive osteolytic destruction at T12-L1 related to discitis. No fracture or dislocation. Degenerative changes. Electronically Signed: Rodrigo Wilhelm MD at 21:02 EST , Assessment & Plan Assessment/Plan (1) Lumbar stenosis: PLAN: I had a lengthy discussion with the patient. I reviewed his imaging with him. CT scan of the lumbar spine dated 04/11/2023 shows significant destruction of the vertebral bodies at T12 and L1 with resultant central canal stenosis at this level which I feel is contributing to his complaints of both back pain and lower extremity weakness. I recommended transfer for evaluation and management per neurosurgery as the patient is likely going to need surgical decompression and posterior stabilization. Given the particular complexly of this patient's case I recommend transfer. I did discuss this with the patient. He understands and agrees with the treatment plan. Will communicate this with admitting physician. (2) Discitis of lumbar region: (3) Intractable low back pain: (4) Compression fracture of T12 vertebra: QUALIFIERS: Encounter type: initial encounter Qualified Code(s): S22.080A - Wedge compression fracture of T11-T12 vertebra, initial encounter for closed fracture (5) Closed compression fracture of L1 vertebra: QUALIFIERS: Encounter type: initial encounter Qualified Code(s): S32.010A - Wedge compression fracture of first lumbar vertebra, initial encounter for closed fracture
--- NOTE | 2023-04-12 07:41 | PN.HOSP_ITS ---
Reason for Visit Reason for Visit: Diagnoses Discitis, unspecified, lumbar region (04/11/23) Other low back pain (04/11/23) Subjective Subjective Patient 72-year-old gentleman admitted from an [facility] with back pain. Patient was apparently on admission from 1216 04/16/2020 MRI at that time showed T12-L1 discitis with developing epidural abscess. Interventional radiology aspiration demonstrated presence of E. coli patient was discharged on IV ceftriaxone presented back to the emergency department with worsening back pain Objective Data Objective Data Vital Signs: Vital Signs Temp Pulse Resp BP Pulse Ox O2 Del Method 97.9 F 67 18 127/57 H 96 Room Air 04/12/23 04:06 04/12/23 04:06 04/12/23 04:08 04/12/23 04:06 04/12/23 04:08 04/12/23 04:08 Oxygen Delivery Method Room Air Weight: 128.3 kg Body Mass Index (BMI) 41.8 Intake & Output: Intake and Output for Last 24 Hours 04/10/23 04/11/23 04/12/23 23:59 23:59 23:59 Intake Total 1000 / 1000 50 / 50 Output Total 200 / 200 Balance 1000 / 1000 -150 / -150 Lab / Micro Data 04/12/23 06:59 04/12/23 06:59 Labs: Laboratory Results - last 24 hr 04/11/23 20:10: WBC 11.8 H, RBC 3.23 L, Hgb 9.4 L, Hct 29.7 L, MCV 92.0, MCH 29.1, MCHC 31.6 L, RDW Std Deviation 61.2 H, RDW Coeff of Abdiel 18.4 H, Plt Count 327, MPV 9.5, Immature Gran % (Auto) 0.300, Neut % (Auto) 80.2 H, Lymph % (Auto) 6.3 L, [place] % (Auto) 12.8 H, Eos % (Auto) 0.1, Baso % (Auto) 0.3, Absolute Neuts (auto) 9.5 H, Absolute Lymphs (auto) 0.75 L, Nucleated RBC % 0, Differential C omment SCANNED, Diff Path Review July, PT 22.8 H, INR 2.0, Sodium 138, Po tassium 4.4, Chloride 107, Carbon Dioxide 28.0, Anion Gap 3 L, BUN 24 H, Creatinine 1.51 H, Estim Creat Clear Calc 61.23, Est GFR (MDRD) Af Amer 59 L, Est GFR (MDRD) Non-Af 49 L, BUN/Creatinine Ratio 15.9, Glucose 101, Calcium 9.2, Magnesium 2.2, Total Bilirubin 0.70, Direct Bilirubin 0.32 H, AST 27, ALT 18, Alkaline Phosphatase 102, Total Creatine Kinase 57, Troponin I High Sens 15, Total Protein 7.2, Albumin 2.6 L, Globulin 4.6 H, Albumin/Globulin Ratio 0.6 L 04/11/23 21:49: Urine Color Yellow, Urine Clarity Clear, Urine pH 6.5, Ur Specific [place] 1.020, Urine Protein 30 H, Urine Glucose (UA) Normal, Urine Ketones 5 H, Urine Occult Blood Negative, Urine Nitrite Positive H, Urine Bilirubin 1 H, Urine Urobilinogen 4 H, Ur Leukocyte Esterase 25 H, Urine RBC 0-5 SEEN, Urine WBC 0-5 SEEN, Ur Squamous Epith Cells 0-5 SEEN, Calcium Oxalate Crystal RARE, Urine Bacteria 1+, Urine Mucus 0 SEEN Radiography Diagnostic Testing: Radiology Impression Brain CT 04/11/23 19:46 IMPRESSION: Normal unenhanced CT scan of the brain. Electronically Signed: Rodrigo Wilhelm MD at 20:55 EST Reading Location ID and State: [facility] / [place] , Service support , Cervical Spine CT 04/11/23 19:46 IMPRESSION: Limited by patient''s size. There is no definite acute fracture/dislocation. Degenerative changes. Electronically Signed: Rodrigo Wilhelm MD at 20:57 EST , Lumbar Spine CT 04/11/23 19:46 IMPRESSION: Persistent changes at T12-L1 consistent with osteomyelitis/discitis. Poorly defined soft tissue at that level produces severe central and foraminal stenosis. Degenerative disc disease with multilevel lumbar stenosis from L2-3 through L5-S1. Electronically Signed: Shree Cunningham MD at 21:13 EST , Thoracic Spine CT 04/11/23 19:46 IMPRESSION: Probable progressive osteolytic destruction at T12-L1 related to discitis. No fracture or dislocation. Degenerative changes. Electronically Signed: Rodrigo Wilhelm MD at 21:02 EST , Physical Exam Narrative GENERAL: cooperative HEENT: Atraumatic; normocephalic EYES; Anicteric, Normal Conjunctiva NECK; supple, normal thyroid, RESPIRATORY: Diminished to auscultation CARDIOVASCULAR: Regular S1 S2, GI: soft, normoactive bowel sounds, : No Renal angle tenderness; EXTREMITIES: No edema, no clubbing, MUSCULOSKELETAL: no muscle wasting NEURO: Awake; with subjective weakness in both lower extremities SKIN: No Rash PSYCH; Flat affect Assessment & Plan Assessment/Plan (1) Discitis of lumbar region: (2) Intractable low back pain: PLAN: Plan Patient 72-year-old gentleman admitted from an [facility] with back pain. Patient was apparently on admission from [facility] 04/16/2020 MRI at that time showed T12-L1 discitis with developing epidural abscess. Interventional radiology aspiration demonstrated presence of E. coli patient was discharged on IV ceftriaxone presented back to the emergency department with worsening back pain 1. Acute back pain secondary to discitis/epidural abscess ?T12-L1 osteomyelitis-discitis with bilateral paraspinal edema and right paraspinal collection, concerning for psoas abscess. Postcontrast imaging may be helpful. Near complete resolution of T12-L1 epidural phlegmon or abscess. Case was discussed with Dr. Carrillo with spine surgery recommended for patient to be transferred to a tertiary care center for neurosurgical evaluation. Patient also seen in consultation by Dr. Soares with infectious disease. Patient remains on broad-spectrum antibiotic therapy pending transfer 2. Class III obesity with BMI of 41.8 ? Complicating care 3. Dyslipidemia -Patient is on statin therapy, continued at home dose 4. Paroxysmal A-fib ? Rate controlled on metoprolol and systemic anticoagulation with warfarin which is currently being held in anticipation of neurosurgical intervention 5. BPH with lower urinary obstructive symptoms - Patient treated with tamsulosin 6. Gout ? Patient is on allopurinol 7. Hypertension - Blood pressure controlled, home medications continued with dose adjustment as needed 8. Coronary artery disease ? With known history of total occlusion involving the RCA. Patient currently on guideline directed medical therapy 9. GERD ? On PPI 10. Obstructive sleep apnea ? CPAP therapy at night 11. Anemia - Secondary to chronic disorder monitoring H&H and transfuse if patient becomes symptomatic or hemoglobin falls below 7 12. Depression with anxiety Patient is on SSRI 12. Chronic kidney disease stage III ? Kidney function at baseline 13. DVT prophylaxis ? Patient is on warfarin which is currently on hold Time spent in the patient's overall evaluation,decision-making process, review of diagnostic data, adjustment of management, discussion with other providers, nursing nursing and ancillary staff involved in patient's care documentation, 50 minutes Charges/Coding Visit Charges Inpatient E&M: 41721 Subs Hosp L3
[2023-04-12 07:45] LABS: Differential Indicated SCAN CRITERIA MET
[2023-04-12 08:04] LABS: Anion Gap 4 (5-15); BUN 23 mg/dL (7-18); BUN/Creat Ratio 14.6 RATIO (10-20); Calcium,Total 9.2 mg/dL (8.5-10.1); Chloride 110 mmol/L (98-107); Creatinine, Serum 1.58 mg/dL (0.70-1.30); EST Glomerular Filtration Rate 46 mL/min (>60); Est Glom Filt Rate - Afr Amer 56 mL/min (>60); Estimated Creatinine Clearance 57.68 ml/min; Glucose 92 mg/dL (74-106); Phosphorus 3.8 mg/dL (2.5-4.9); Sodium Level 139 mmol/L (136-145)
--- NOTE | 2023-04-12 08:20 | WOUNDNOTE ---
wound photo: bilateral inner buttocks
[2023-04-12 08:21] VITALS: BP 148/65; PULSE 69; RESP 16; TEMP 36.7; O2SAT 96
[2023-04-12] MEDS: Glucerna Shake 120 ML LIQUID PO ×2 (08:36→11:34)
[2023-04-12] MEDS: Multivitamins,Therapeutic Tablet 1 TABLET PO (08:37)
[2023-04-12] MEDS: Folic Acid 1 MG Tablet PO (08:37)
[2023-04-12] MEDS: CLARIFY ORDER 1 EACH NOTE (10:37)
[2023-04-12] MEDS: Menthol/Lanolin/Calamine/Znox 113 GM Tube 1 APPLIC TOPICAL ×2 (10:37→21:49)
[2023-04-12] MEDS: Citalopram 20 MG Tablet PO (10:37)
[2023-04-12] MEDS: Isosorbide Mononitrate 60 MG Tablet PO ×2 (10:38→21:01)
[2023-04-12] MEDS: Meloxicam 7.5 MG Tablet PO (10:38)
[2023-04-12] MEDS: Nystatin Powder 15gm Bottle 1 APPLIC TOPICAL ×2 (10:38→21:48)
[2023-04-12] MEDS: Losartan Potassium 50 MG Tablet PO (10:38)
[2023-04-12] MEDS: Tamsulosin HCl 0.4 MG Capsule 0.400000000000000022 MG PO (10:38)
[2023-04-12 10:39] VITALS: PULSE 69
[2023-04-12] MEDS: Ranolazine 500 MG Tablet 1000 MG PO ×2 (10:39→21:00)
[2023-04-12] MEDS: Metoprolol(XL)Succ 50 MG Tablet PO (10:39)
[2023-04-12] MEDS: Clopidogrel Bisulfate 75 MG Tablet PO (10:40)
--- NOTE | 2023-04-12 10:57 | PCM.CONS.GEN ---
Assessment & Plan Assessment/Plan (1) Discitis of lumbar region: PLAN: Had been admitted to [facility] 02/17-02/22 with back pain. MRI at that time showed T12-L1 discitis with developing epidural phlegmon/abscess. Bcx neg. IR aspiration of disc done 02/20, cx showing ecoli. Ucx 02/17 with heavy growth of ecoli. Discharged to [facility] with picc and q12h ceftriaxone for 6 weeks, stop date 04/02/23 with weekly labs, ID followup in 3 weeks and plan for repeat MRI prior to stopping abx. After leaving to ECF, was lost to followup, MRI not done, abx were stopped, picc left in place, sent home. called EMS and he went back to hospital. No pain at rest. Restarted on ceftriaxone here, will increase to q12h. Seen by spine surgery, MRI done. Bcx pending. Transfer planned. MRI report now: T12-L1 osteomyelitis-discitis with bilateral paraspinal edema and right paraspinal collection, concerning for psoas abscess. Postcontrast imaging may be helpful. Near complete resolution of T12-L1 epidural phlegmon or abscess. Multilevel degenerative disc disease as above. Will follow, thank you (2) Lumbar stenosis: HPI Consult Data Date of Consult: 04/12/23 HPI Narrative Reason for Consultation: discitis HPI Narrative: GUSTAVO HARTMAN, is a 72 M who presented 04/11 to ED with 2 weeks worsened back pain, unable to stand or walk due to pain. Had been admitted to [facility] 02/17-02/22 with back pain. MRI showed T12-L1 discitis with developing epidural phlegmon/abscess. Bcx neg. IR aspiration of disc done 02/20, cx showing ecoli. Ucx 02/17 with heavy growth of ecoli. Discharged to [facility]CF with picc and q12h ceftriaxone for 6 weeks, stop date 04/02/23 with weekly labs, ID followup in 3 weeks and plan for repeat MRI prior to stopping abx. After leaving to ECF, was lost to followup, MRI not done, abx were stopped, picc left in place, sent home. No fever or chills. called EMS and he went back to hospital. No pain at rest. Pain radiates down both legs. Restarted on ceftriaxone here. Seen by spine surgery, MRI done. Full ROS performed and neg except as noted above. 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 Morbid obesity LILI on CPAP Paroxysmal atrial fibrillation Polyarthritis Pure hypercholesterolemia Viral syndrome Wears glasses Home Medications citalopram 20 mg tablet 20 mg PO DAILY MOOD 09/21/14 [History Last Taken 02/16/23] multivitamin 1 tab PO DAILY SUPPLEMENT 09/21/14 [History Last Taken 02/16/23] esomeprazole magnesium 20 mg capsule,delayed release 20 mg PO DAILY GERD 05/18/19 [History Last Taken 02/16/23] tamsulosin 0.4 mg capsule 0.4 mg PO DAILY bph 05/18/19 [History Last Taken 02/16/23] cod liver oil 1 cap PO DAILY arthritis 02/03/20 [History Last Taken 02/16/23] turmeric 400 mg capsule 500 mg PO DAILY arthritis 02/03/20 [History Last Taken 02/16/23] hydroxychloroquine 200 mg tablet 200 mg PO BID arthritis 04/25/21 [History Last Taken 02/16/23] Handicap Placard #1 ea 07/05/21 [Rx Last Taken Unknown] mirtazapine 30 mg tablet 30 mg PO QHS sleep 10/01/22 [History Last Taken 02/16/23] atorvastatin 80 mg tablet See Rx Instructions .Route .COMPLEX #90 tabs 11/21/22 [Rx Last Taken 02/16/23] allopurinol 300 mg tablet 300 mg PO DAILY PRN gout 02/17/23 [History Last Taken 02/16/23] isosorbide mononitrate 60 mg tablet,extended release 24 hr 60 mg PO BID heart 02/17/23 [History Last Taken 02/16/23] meloxicam 7.5 mg tablet 7.5 mg PO DAILY arthritis 02/17/23 [History Last Taken 02/16/23] metoprolol succinate 25 mg tablet,extended release 24 hr 50 mg PO DAILY heart 02/17/23 [History Last Taken 02/16/23] nitroglycerin 0.4 mg sublingual tablet 0.4 mg sublingual Q5M PRN chest pain 02/17/23 [History Last Taken Unknown] ranolazine 500 mg tablet,extended release,12 hr (Ranexa) 1,000 mg PO BID 02/17/23 [History Last Taken 02/16/23] oxycodone 5 mg tablet 5 mg PO Q4H PRN PRN Pain Score 4-6 3 days #10 tabs 02/22/23 [Rx Last Taken Unknown] clopidogrel 75 mg tablet 75 mg PO DAILY blood thinner 04/11/23 [History Last Taken Unknown] folic acid 1 mg tablet 1 mg PO DAILY vitamin 04/11/23 [History Last Taken Unknown] lidocaine 4 % topical patch (Lidocare) 1 patch topical DAILY pain 04/11/23 [History Last Taken Unknown] losartan 50 mg tablet 50 mg PO DAILY bp 04/11/23 [History Last Taken Unknown] ondansetron HCl 4 mg tablet 4 mg PO Q4H PRN nausea 04/11/23 [History Last Taken Unknown] pantoprazole 40 mg tablet,delayed release 40 mg PO Q12H stomach 04/11/23 [History Last Taken Unknown] sucralfate 1 gram tablet 1 g PO 4X/DAY stomach 04/11/23 [History Last Taken Unknown] warfarin 4 mg tablet 2.5 mg PO DAILY blood thinner 04/11/23 [History Last Taken Unknown] Allergy/AdvReac Type Severity Reaction Status Date / Time bee venom protein (honey bee) Allergy Hives Verified 04/11/23 17:46 amlodipine AdvReac Severe severe Verified 04/11/23 17:46 swelling in hands and feet spider venom AdvReac Other Verified 04/11/23 17:46 Family History Father Heart disease Diabetes CAD (coronary artery disease) History of coronary artery bypass surgery Cardiac pacemaker in situ Pure hypercholesterolemia Surgical History H/O umbilical hernia repair History of cystoscopy History of inguinal hernia repair, bilateral History of knee surgery History of total right knee replacement Social History household members: spouse Smoking Status: Former smoker how long ago did patient quit smokin alcohol intake: never substance use type: does not use caffeine: Yes Type: tea Number of servings: 2 Physical Exam Const alert, oriented x3 and no apparent distress General Appearance: cooperative HEENT normocephalic and head/scalp atraumatic Eyes PERRL and EOMs intact bilaterally Neck supple Resp normal air movement and clear to auscultation bilaterally Cardio regular rate and regular rhythm GI soft to palpation, non-tender and non-distended Extremity General Extremity: edema Skin no rashes or lesions noted Skin Narrative: RUE picc no redness Neuro CN's II-XII intact bilaterally Neuro Narrative: strength good in feet while lying down Lab / Micro Data Attestation: I reviewed the patient's lab results. 04/12/23 06:59 04/12/23 06:59 Labs: Laboratory Results - last 24 hr 04/11/23 20:10: WBC 11.8 H, RBC 3.23 L, Hgb 9.4 L, Hct 29.7 L, MCV 92.0, MCH 29.1, MCHC 31.6 L, RDW Std Deviation 61.2 H, RDW Coeff of Abdiel 18.4 H, Plt Count 327, MPV 9.5, Immature Gran % (Auto) 0.300, Neut % (Auto) 80.2 H, Lymph % (Auto) 6.3 L, [place] % (Auto) 12.8 H, Eos % (Auto) 0.1, Baso % (Auto) 0.3, Absolute Neuts (auto) 9.5 H, Absolute Lymphs (auto) 0.75 L, Nucleated RBC % 0, Differential Comment SCANNED, Diff Path Review July foll, PT 22.8 H, INR 2.0, Sodium 138, Potassium 4.4, Chloride 107, Carbon Dioxide 28.0, Anion Gap 3 L, BUN 24 H, Creatinine 1.51 H, Estim Creat Clear Calc 61.23, Est GFR (MDRD) Af Amer 59 L, Est GFR (MDRD) Non-Af 49 L, BUN/Creatinine Ratio 15.9, Glucose 101, Calcium 9.2, Magnesium 2.2, Total Bilirubin 0.70, Direct Bilirubin 0.32 H, AST 27, ALT 18, Alkaline Phosphatase 102, Total Creatine Kinase 57, Troponin I High Sens 15, Total Protein 7.2, Albumin 2.6 L, Globulin 4.6 H, Albumin/Globulin Ratio 0.6 L 04/11/23 21:49: Urine Color Yellow, Urine Clarity Clear, Urine pH 6.5, Ur Specific [place] 1.020, Urine Protein 30 H, Urine Glucose (UA) Normal, Urine Ketones 5 H, Urine Occult Blood Negative, Urine Nitrite Positive H, Urine Bilirubin 1 H, Urine Urobilinogen 4 H, Ur Leukocyte Esterase 25 H, Urine RBC 0-5 SEEN, Urine WBC 0-5 SEEN, Ur Squamous Epith Cells 0-5 SEEN, Calcium Oxalate Crystal RARE, Urine Bacteria 1+, Urine Mucus 0 SEEN 04/12/23 06:59: WBC 10.5, RBC 3.06 L, Hgb 8.8 L, Hct 28.2 L, MCV 92.2, MCH 28.8, MCHC 31.2 L, RDW Std Deviation 60.9 H, RDW Coeff of Abdiel 18.2 H, Plt Count 318, MPV 10.0, Immature Gran % (Auto) 0.300, Neut % (Auto) 75.9 H, Lymph % (Auto) 8.6 L, [place] % (Auto) 14.9 H, Eos % (Auto) 0.1, Baso % (Auto) 0.2, Absolute Neuts (auto) 8.0 H, Absolute Lymphs (auto) 0.90, Nucleated RBC % 0, Differential Comment COMMENT, Sodium 139, Potassium 4.0, Chloride 110 H, Carbon Dioxide 25.0, Anion Gap 4 L, BUN 23 H, Creatinine 1.58 H, Estim Creat Clear Calc 57.68, Est GFR (MDRD) Af Amer 56 L, Est GFR (MDRD) Non-Af 46 L, BUN/Creatinine Ratio 14.6, Glucose 92, Calcium 9.2, Phosphorus 3.8 Imaging Radiology Impression Brain CT 04/11/23 19:46 IMPRESSION: Normal unenhanced CT scan of the brain. Electronically Signed: Rodrigo Wilhelm MD at 20:55 EST , Cervical Spine CT 04/11/23 19:46 IMPRESSION: Limited by patient''s size. There is no definite acute fracture/dislocation. Degenerative changes. Electronically Signed: Rodrigo Wilhelm MD at 20:57 EST , Lumbar Spine CT 04/11/23 19:46 IMPRESSION: Persistent changes at T12-L1 consistent with osteomyelitis/discitis. Poorly defined soft tissue at that level produces severe central and foraminal stenosis. Degenerative disc disease with multilevel lumbar stenosis from L2-3 through L5-S1. Electronically Signed: Shree Cunningham MD at 21:13 EST , Thoracic Spine CT 04/11/23 19:46 IMPRESSION: Probable progressive osteolytic destruction at T12-L1 related to discitis. No fracture or dislocation. Degenerative changes. Electronically Signed: Rodrigo Wilhelm MD at 21:02 EST , Lumbar Spine MRI 04/12/23 00:29 IMPRESSION: T12-L1 osteomyelitis-discitis with bilateral paraspinal edema and right paraspinal collection, concerning for psoas abscess. Postcontrast imaging may be helpful. Near complete resolution of T12-L1 epidural phlegmon or abscess. Multilevel degenerative disc disease as above. Electronically Signed: Angela David MD at 10:51 EST ,
[2023-04-12] MEDS: 0.9 % NaCl (Sterile) Posiflush 10 mL IV (11:28)
--- NOTE | 2023-04-12 16:42 | PCM.DC.SUM ---
Providers Date of Admission: 04/11/23 Date of Discharge: 04/12/23 Primary Care Physician: Dr. 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 Comment: Reason for Consult:: open area on buttock 04/12/23 00:29 Consult: Infectious Disease Routine Consulting Provider: Merritt Soares Reason for Consult: T12-L1 discitis/osteomyelitis EMERGENT Consult: No MD Notified: Yes Date Notified: 04/12/23 Time Notified: 00:34 Method of Notification: Text Consult: Orthopedics Routine Consulting Provider: Hal Phipps Reason for Consult: T12-L1 SPINE DISCITIS EMERGENT Consult: No Notified: Yes Date Notified: 04/11/23 Time Notified: 21:31 Method of Notification: ED Physician Initiated Reason For Visit: THORACIC DISKITIS, ACUTE ON CHR Diagnosis Discharge Diagnosis (1) Discitis of lumbar region: Status: Acute Code(s): M46.46 - Discitis, unspecified, lumbar region (2) Intractable low back pain: Status: Acute Code(s): M54.59 - Other low back pain Plan Patient 72-year-old gentleman admitted from an [facility] with back pain. Patient was apparently on admission from [facility] 04/16/2020 MRI at that time showed T12-L1 discitis with developing epidural abscess. Interventional radiology aspiration demonstrated presence of E. coli patient was discharged on IV ceftriaxone presented back to the emergency department with worsening back pain 1. Acute back pain secondary to discitis/epidural abscess ?T12-L1 osteomyelitis-discitis with bilateral paraspinal edema and right paraspinal collection, concerning for psoas abscess. Postcontrast imaging may be helpful. Near complete resolution of T12-L1 epidural phlegmon or abscess. Case was discussed with Dr. Carrillo with spine surgery recommended for patient to be transferred to a tertiary care center for neurosurgical evaluation. Patient also seen in consultation by Dr. Soares with infectious disease. Patient remains on broad-spectrum antibiotic therapy pending transfer 2. Class III obesity with BMI of 41.8 ? Complicating care 3. Dyslipidemia -Patient is on statin therapy, continued at home dose 4. Paroxysmal A-fib ? Rate controlled on metoprolol and systemic anticoagulation with warfarin which is currently being held in anticipation of neurosurgical intervention 5. BPH with lower urinary obstructive symptoms - Patient treated with tamsulosin 6. Gout ? Patient is on allopurinol 7. Hypertension - Blood pressure controlled, home medications continued with dose adjustment as needed 8. Coronary artery disease ? With known history of total occlusion involving the RCA. Patient currently on guideline directed medical therapy 9. GERD ? On PPI 10. Obstructive sleep apnea ? CPAP therapy at night 11. Anemia - Secondary to chronic disorder monitoring H&H and transfuse if patient becomes symptomatic or hemoglobin falls below 7 12. Depression with anxiety Patient is on SSRI 12. Chronic kidney disease stage III ? Kidney function at baseline 13. DVT prophylaxis ? Patient is on warfarin which is currently on hold Time spent in the patient's overall evaluation,decision-making process, review of diagnostic data, adjustment of management, discussion with other providers, nursing nursing and ancillary staff involved in patient's care documentation, 50 minutes Medications at Discharge Home Medications citalopram 20 mg tablet 20 mg PO DAILY MOOD 09/21/14 multivitamin 1 tab PO DAILY SUPPLEMENT 09/21/14 esomeprazole magnesium 20 mg capsule,delayed release 20 mg PO DAILY GERD 05/18/19 tamsulosin 0.4 mg capsule 0.4 mg PO DAILY bph 05/18/19 cod liver oil 1 cap PO DAILY arthritis 02/03/20 turmeric 400 mg capsule 500 mg PO DAILY arthritis 02/03/20 hydroxychloroquine 200 mg tablet 200 mg PO BID arthritis 04/25/21 Handicap Placard #1 ea 07/05/21 mirtazapine 30 mg tablet 30 mg PO QHS sleep 10/01/22 atorvastatin 80 mg tablet See Rx Instructions .Route .COMPLEX #90 tabs 11/21/22 allopurinol 300 mg tablet 300 mg PO DAILY PRN gout 02/17/23 isosorbide mononitrate 60 mg tablet,extended release 24 hr 60 mg PO BID heart 02/17/23 meloxicam 7.5 mg tablet 7.5 mg PO DAILY arthritis 02/17/23 metoprolol succinate 25 mg tablet,extended release 24 hr 50 mg PO DAILY heart 02/17/23 nitroglycerin 0.4 mg sublingual tablet 0.4 mg sublingual Q5M PRN chest pain 02/17/23 ranolazine 500 mg tablet,extended release,12 hr (Ranexa) 1,000 mg PO BID 02/17/23 oxycodone 5 mg tablet 5 mg PO Q4H PRN PRN Pain Score 4-6 3 days #10 tabs 02/22/23 clopidogrel 75 mg tablet 75 mg PO DAILY blood thinner 04/11/23 folic acid 1 mg tablet 1 mg PO DAILY vitamin 04/11/23 lidocaine 4 % topical patch (Lidocare) 1 patch topical DAILY pain 04/11/23 losartan 50 mg tablet 50 mg PO DAILY bp 04/11/23 ondansetron HCl 4 mg tablet 4 mg PO Q4H PRN nausea 04/11/23 pantoprazole 40 mg tablet,delayed release 40 mg PO Q12H stomach 04/11/23 sucralfate 1 gram tablet 1 g PO 4X/DAY stomach 04/11/23 warfarin 4 mg tablet 2.5 mg PO DAILY blood thinner 04/11/23 Hospital Course Summary of Care Provided Minutes Spent on Discharge: 50 Physical Exam Narrative GENERAL: cooperative HEENT: Atraumatic; normocephalic EYES; Anicteric, Normal Conjunctiva NECK; supple, normal thyroid, RESPIRATORY: Diminished to auscultation CARDIOVASCULAR: Regular S1 S2, GI: soft, normoactive bowel sounds, : No Renal angle tenderness; EXTREMITIES: No edema, no clubbing, MUSCULOSKELETAL: no muscle wasting NEURO: Awake; with subjective weakness in both lower extremities SKIN: No Rash PSYCH; Flat affect Medical Records Data Medical Nutrition Assessment Dietitian: Malnutrition Criteria Met Start: 04/12/23 14:51 Freq: Status: Active Protocol: Document 04/12/23 14:56 AG (Rec: 04/12/23 14:56 AG Desktop) Nutrition Malnutrition Evidence of Malnutrition Exists Yes Malnutrition (severe): Acute Illness/Injury Evidenced By Suboptimal Energy Intake ( Severe),Weight Loss (Severe) Clinical Problem Acute Disease or Injury Related Malnutrition Etiology related to inadequate energy intake w/ recent acute illnesses Signs/Symptoms as evidenced by unintentional wt loss of 11% < 2 months, estimated PO intake meeting < 75% of estimated energy needs > 2 months Status Active Problem Recommendation Dietitian Recommendations/Changes will liberalize diet to regular and adjust ONS to ensure plus high protein TID w / meals Weight / BMI Weight Weight: 128.3 kg Body Mass Index (BMI) 41.8 ABG / Lab / Microbiology Data 04/12/23 06:59 04/12/23 06:59 Laboratory: Laboratory Results - last 24 hr 04/11/23 20:10: WBC 11.8 H, RBC 3.23 L, Hgb 9.4 L, Hct 29.7 L, MCV 92.0, MCH 29.1, MCHC 31.6 L, RDW Std Deviation 61.2 H, RDW Coeff of Abdiel 18.4 H, Plt Count 327, MPV 9.5, Immature Gran % (Auto) 0.300, Neut % (Auto) 80.2 H, Lymph % (Auto) 6.3 L, [place] % (Auto) 12.8 H, Eos % (Auto) 0.1, Baso % (Auto) 0.3, Absolute Neuts (auto) 9.5 H, Absolute Lymphs (auto) 0.75 L, Nucleated RBC % 0, Differential Comment SCANNED, Diff Path Review July, PT 22.8 H, INR 2.0, Sodium 138, Potassium 4.4, Chloride 107, Carbon Dioxide 28.0, Anion Gap 3 L, BUN 24 H, Creatinine 1.51 H, Estim Creat Clear Calc 61.23, Est GFR (MDRD) Af Amer 59 L, Est GFR (MDRD) Non-Af 49 L, BUN/Creatinine Ratio 15.9, Glucose 101, Calcium 9.2, Magnesium 2.2, Total Bilirubin 0.70, Direct Bilirubin 0.32 H, AST 27, ALT 18, Alkaline Phosphatase 102, Total Creatine Kinase 57, Troponin I High Sens 15, Total Protein 7.2, Albumin 2.6 L, Globulin 4.6 H, Albumin/Globulin Ratio 0.6 L 04/11/23 21:49: Urine Color Yellow, Urine Clarity Clear, Urine pH 6.5, Ur Specific [place] 1.020, Urine Protein 30 H, Urine Glucose (UA) Normal, Urine Ketones 5 H, Urine Occult Blood Negative, Urine Nitrite Positive H, Urine Bilirubin 1 H, Urine Urobilinogen 4 H, Ur Leukocyte Esterase 25 H, Urine RBC 0-5 SEEN, Urine WBC 0-5 SEEN, Ur Squamous Epith Cells 0-5 SEEN, Calcium Oxalate Crystal RARE, Urine Bacteria 1+, Urine Mucus 0 SEEN 04/12/23 06:59: WBC 10.5, RBC 3.06 L, Hgb 8.8 L, Hct 28.2 L, MCV 92.2, MCH 28.8, MCHC 31.2 L, RDW Std Deviation 60.9 H, RDW Coeff of Abdiel 18.2 H, Plt Count 318, MPV 10.0, Immature Gran % (Auto) 0.300, Neut % (Auto) 75.9 H, Lymph % (Auto) 8.6 L, [place] % (Auto) 14.9 H, Eos % (Auto) 0.1, Baso % (Auto) 0.2, Absolute Neuts (auto) 8.0 H, Absolute Lymphs (auto) 0.90, Nucleated RBC % 0, Differential Comment COMMENT, Sodium 139, Potassium 4.0, Chloride 110 H, Carbon Dioxide 25.0, Anion Gap 4 L, BUN 23 H, Creatinine 1.58 H, Estim Creat Clear Calc 57.68, Est GFR (MDRD) Af Amer 56 L, Est GFR (MDRD) Non-Af 46 L, BUN/Creatinine Ratio 14.6, Glucose 92, Calcium 9.2, Phosphorus 3.8 Radiography Diagnostic Testing: Radiology Impression Brain CT 04/11/23 19:46 IMPRESSION: Normal unenhanced CT scan of the brain. Electronically Signed: Rodrigo Wilhelm MD at 20:55 EST , Cervical Spine CT 04/11/23 19:46 IMPRESSION: Limited by patient''s size. There is no definite acute fracture/dislocation. Degenerative changes. Electronically Signed: Rodrigo Wilhelm MD at 20:57 EST , Lumbar Spine CT 04/11/23 19:46 IMPRESSION: Persistent changes at T12-L1 consistent with osteomyelitis/discitis. Poorly defined soft tissue at that level produces severe central and foraminal stenosis. Degenerative disc disease with multilevel lumbar stenosis from L2-3 through L5-S1. Electronically Signed: Shree Cunningham MD at 21:13 EST , Thoracic Spine CT 04/11/23 19:46 IMPRESSION: Probable progressive osteolytic destruction at T12-L1 related to discitis. No fracture or dislocation. Degenerative changes. Electronically Signed: Rodrigo Wilhelm MD at 21:02 EST , Lumbar Spine MRI 04/12/23 00:29 IMPRESSION: T12-L1 osteomyelitis-discitis with bilateral paraspinal edema and right paraspinal collection, concerning for psoas abscess. Postcontrast imaging may be helpful. Near complete resolution of T12-L1 epidural phlegmon or abscess. Multilevel degenerative disc disease as above. Electronically Signed: Angela David MD at 10:51 EST , D/C Instructions Discharge Diet: No restrictions Discharge Activity: Return to Normal Activity Call your doctor if you observe: Fever of 101 or Higher, Shortness of breath, Fainting spells and Chest pain Meaningful Use Info Meaningful Use Diagnoses (Choose all that apply): None applicable Discharge Plan Admission Admit Date/Time: 04/11/23 21:56 Attending Provider: Jake Johnson Primary Care Provider: Cornell Gunter Consulting Providers: Merritt Soares; Hal Phipps; Wild Martinez Discharge Orders/Prescriptions Prescriptions: Continued hydroxychloroquine 200 mg tablet 200 mg PO BID (DME) Handicap Placard See Rx Instructions .Route .MEDSUPPLY Qty: 1 0RF Rx Instructions: Good from 07/05/2021-07/05/2026; multivitamin 1 TABLET tablet 1 tab PO DAILY citalopram 20 MG tablet 20 mg PO DAILY tamsulosin 0.4 MG capsule 0.4 mg PO DAILY esomeprazole magnesium 20 MG capsule 20 mg PO DAILY cod liver oil 1 EACH capsule 1 cap PO DAILY turmeric 400 MG capsule 500 mg PO DAILY mirtazapine 30 mg tablet 30 mg PO QHS isosorbide mononitrate 60 mg tablet extended release 24 hr 60 mg PO BID meloxicam 7.5 mg tablet 7.5 mg PO DAILY metoprolol succinate 25 mg tablet extended release 24 hr 50 mg PO DAILY nitroglycerin 0.4 mg tablet, sublingual 0.4 mg sublingual Q5M PRN (Reason: chest pain) allopurinol 300 mg tablet 300 mg PO DAILY PRN ranolazine [Ranexa] 500 mg tablet extended release 12 hr 1,000 mg PO BID oxycodone 5 mg Tablet 5 mg PO Q4H PRN PRN (Reason: Pain Score 4-6) 3 Days Qty: 10 0RF clopidogrel 75 mg tablet 75 mg PO DAILY folic acid 1 mg tablet 1 mg PO DAILY lidocaine [Lidocare] 4 % adhesive patch,medicated 1 patch topical DAILY Rx Instructions: may leave on for up to 12 hrs losartan 50 mg tablet 50 mg PO DAILY ondansetron HCl 4 mg tablet 4 mg PO Q4H PRN pantoprazole 40 mg tablet,delayed release (DR/EC) 40 mg PO Q12H sucralfate 1 gram tablet 1 g PO 4X/DAY warfarin 4 mg tablet 2.5 mg PO DAILY Protocol: Dose Management Condition: Sunday Dose/Route: 4 mg Instruction: 1 x 4 mg tablet Condition: Sunday Dose/Route: 8 mg Instruction: 2 x 4 mg tablets Condition: Sunday Dose/Route: 8 mg Instruction: 2 x 4 mg tablets Condition: Sunday Dose/Route: 8 mg Instruction: 2 x 4 mg tablets Condition: Dose/Route: 8 mg Instruction: 2 x 4 mg tablets Condition: Sunday Dose/Route: 8 mg Instruction: 2 x 4 mg tablets Condition: Sunday Dose/Route: 4 mg Instruction: 1 x 4 mg tablet Protocol Text: Adjustment Start Date: Sunday02/12/23 INR Value: 1.6 INR Date: 02/12/23 Recheck Date: 02/19/23 atorvastatin 80 mg tablet See Rx Instructions .ROUTE .COMPLEX Qty: 90 4RF Dose Instruction: TAKE 1 TABLET BY MOUTH AT BEDTIME Rx Instructions: TAKE 1 TABLET BY MOUTH AT BEDTIME Referrals / Follow Up: Cornell Gunter MD [Primary Care Provider] - Within 1 Month Disposition Disposition (needs filled in before D/C Order can be placed): Acute Care Hospital Charges/Coding Visit Charges Inpatient E&M: 15700 Disch Hosp >30min
[2023-04-12 17:48] VITALS: BP 149/46; PULSE 64; RESP 18; TEMP 37.2; O2SAT 98
--- NOTE | 2023-04-12 17:50 | NURSING ---
[facility] [id number] Dr. Horn. report RN-RN [phone]
[2023-04-12] MEDS: Mirtazapine 15 MG Tablet PO (21:00)
[2023-04-12] MEDS: Atorvastatin Calcium 80 MG Tablet PO (21:00)
[2023-04-12 21:03] VITALS: BP 126/51; PULSE 62; RESP 16; TEMP 36.9; O2SAT 98
[2023-04-13 00:29] VITALS: BP 134/58; PULSE 72; RESP 18; TEMP 36.3; O2SAT 98
--- NOTE | 2023-04-13 00:49 | NURSING ---
report given at 0040 RN to RN at [facility]
[2023-04-13 07:16] LABS: Pathologist Review Reviewed
== END 2023-04-13 00:40 | disposition short-term general hospital (02) | DRG 539 ==
LOC: ED 20:36 → MS3 22:08
PROVIDERS: Admitting Provider Internal Medicine; Emergency Provider Student in an Organized Health Care Education/Training Program; PCP Family Medicine; Visit Provider Internal Medicine
DX: M46.26 Osteomyelitis of vertebra, lumbar region (principal); K68.12 Psoas muscle abscess; G06.2 Extradural and subdural abscess, unspecified; S22.080A Wedge compression fracture of T11-T12 vertebra, initial encounter for closed fracture; G82.20 Paraplegia, unspecified; S32.010A Wedge compression fracture of first lumbar vertebra, initial encounter for closed fracture; Z68.41 Body mass index [BMI] 40.0-44.9, adult; M48.05 Spinal stenosis, thoracolumbar region; R62.7 Adult failure to thrive; I48.0 Paroxysmal atrial fibrillation; N18.31 Chronic kidney disease, stage 3a; E66.01 Morbid (severe) obesity due to excess calories; I12.9 Hypertensive chronic kidney disease with stage 1 through stage 4 chronic kidney disease, or unspecified chronic kidney disease; F32.A Depression, unspecified; K21.9 Gastro-esophageal reflux disease without esophagitis; I25.10 Atherosclerotic heart disease of native coronary artery without angina pectoris; E78.00 Pure hypercholesterolemia, unspecified; M10.9 Gout, unspecified; M48.061 Spinal stenosis, lumbar region without neurogenic claudication; G47.33 Obstructive sleep apnea (adult) (pediatric); F41.9 Anxiety disorder, unspecified; N40.1 Benign prostatic hyperplasia with lower urinary tract symptoms; N32.0 Bladder-neck obstruction; R32 Unspecified urinary incontinence; R53.81 Other malaise; B96.20 Unspecified Escherichia coli [E. coli] as the cause of diseases classified elsewhere; Z74.01 Bed confinement status; Z79.01 Long term (current) use of anticoagulants; Z79.02 Long term (current) use of antithrombotics/antiplatelets; Z79.899 Other long term (current) drug therapy; Z87.891 Personal history of nicotine dependence
CPT/HCPCS: 36415; 70450; 72125; 72128; 72131; 72146; 72148; 80048; 80053; 80076; 81001; 82550; 83735; 84100; 84484; 85025; 85610; 87040; 93005; 97162; 97165; 97802; 99284; J7030; A4216

== ENCOUNTER 2023-04-24 08:22 | Outpatient (CLI) | payer MEDICARE, OTHER, SELFPAY ==
[2023-04-24 09:23] VITALS: BP 169/58; PULSE 61; RESP 14; TEMP 37.1; O2SAT 97
[2023-04-24 11:13] VITALS: BP 166/70; PULSE 60; RESP 16; TEMP 37.1; O2SAT 97
[2023-04-24 12:13] VITALS: BP 154/58; PULSE 63; RESP 15; TEMP 37.2; O2SAT 98
[2023-04-24] MEDS: 0.9 % NaCl (Sterile) Posiflush 10 mL IV (13:28)
[2023-04-24 13:29] VITALS: BP 159/59; PULSE 60; RESP 16; TEMP 37.1; O2SAT 98
--- NOTE | 2023-04-24 14:03 | NURSING ---
report called to Heather VERA at [facility]
== END 2023-04-24 14:40 | disposition home or self-care (01) ==
LOC: MEDOUTP 08:27 → PCU 08:28
PROVIDERS: PCP Family Medicine; Referring Provider Nurse Practitioner Adult Health; Visit Provider Nurse Practitioner Adult Health
DX: D64.9 Anemia, unspecified (principal); I25.10 Atherosclerotic heart disease of native coronary artery without angina pectoris
CPT/HCPCS: 36415; 36430; 86850; 86900; 86901; 86920; 86922; J7040; P9016

== ENCOUNTER → 2023-04-24 08:22 | Outpatient (REF) | payer MEDICARE, OTHER, SELFPAY | LOC: MEDOUTP 08:22 | PROVIDERS: PCP Family Medicine; Referring Provider Nurse Practitioner Adult Health; Visit Provider Nurse Practitioner Adult Health | DX: D64.9 Anemia, unspecified (principal) | CPT/HCPCS: 36415; 36430; 86850; 86900; 86901; 86920; 86922; J7040; P9016 ==

== ENCOUNTER 2023-05-09 15:03 | Inpatient (IN) | payer MEDICARE, OTHER, SELFPAY ==
[2023-05-09] VITALS (14 sets, daily range): BP systolic 89–142; BP diastolic 52–78; PULSE 59–71; RESP 12–19; TEMP 36.1–36.6; O2SAT 98–100; BMI 42.0; BMI 38.7
--- NOTE | 2023-05-09 15:32 | EKG12_ITS ---
Test Reason : CP Blood Pressure : / mmHG Vent. Rate : 062 BPM Atrial Rate : 000 BPM P-R Int : 000 ms QRS Dur : 090 ms QT Int : 458 ms P-R-T Axes : 000 046 049 degrees QTc Int : 464 ms Atrial fibrillation Nonspecific ST and T wave abnormality Prolonged QT Abnormal ECG Confirmed by Abdi Gasca ([id number]), associate entertainment editor MJ CAMPBELL ([id number]) on 05/10/2023 2:48:56 PM Referred By: Confirmed By:Adbi Gasca
--- NOTE | 2023-05-09 15:34 | ED.VIS.CHEST ---
HPI History of Present Illness Chief Complaint: Chest Pain Narrative Narrative: 72-year-old male presents from [facility] with reported chest pain around noon. He relates history that he was at [facility] around noon, getting his Adams catheter removed that had been in place for at least 4 weeks. He states that he inserted 40 mL into his bladder. She was able to produce 80 mL. When he got back to the [facility] facility, he states he could not get warm. Additionally, he began having chest pain that lasted approximately half an hour. It was more central pressure, no radiation. He denies any fevers or chills, no cough, no diaphoresis or shortness of breath associated with his chest pain. No nausea or vomiting. He states he has not had problems with chest pain in the past. After he received aspirin and nitroglycerin, his chest pain has resolved. [facility] Medical History (Updated 05/09/23 @ 18:[address] Noa Leyva, ) Ambulates with cane Anemia Anxiety and depression Arthritis Atherosclerotic heart disease of [place] coronary artery without angina pectoris Atrial fibrillation Chronic UTI CKD (chronic kidney disease), stage III Depression Essential hypertension Former smoker GERD (gastroesophageal reflux disease) Gout History of left heart catheterization (LHC) (~07/29/19) pen[facility]entiary (current) use of anticoagulants Morbid obesity LILI on CPAP Paroxysmal atrial fibrillation Polyarthritis Pure hypercholesterolemia Viral syndrome Wears glasses Home Medications citalopram 20 mg tablet 20 mg PO DAILY MOOD 09/21/14 [History Last Taken 02/16/23] tamsulosin 0.4 mg capsule 0.4 mg PO DAILY bph 05/18/19 [History Last Taken 02/16/23] turmeric 400 mg capsule 500 mg PO DAILY arthritis 02/03/20 [History Last Taken 02/16/23] hydroxychloroquine 200 mg tablet 200 mg PO BID arthritis 04/25/21 [History Last Taken 02/16/23] Handicap Placard #1 ea 07/05/21 [Rx Last Taken Unknown] mirtazapine 30 mg tablet 15 mg PO QHS sleep 10/01/22 [History Last Taken 02/16/23] isosorbide mononitrate 60 mg tablet,extended release 24 hr 60 mg PO BID heart 02/17/23 [History Last Taken 02/16/23] nitroglycerin 0.4 mg sublingual tablet 0.4 mg sublingual Q5M PRN chest pain 02/17/23 [History Last Taken Unknown] ranolazine 500 mg tablet,extended release,12 hr (Ranexa) 500 mg PO BID 02/17/23 [History Last Taken 02/16/23] oxycodone 5 mg tablet 5 mg PO Q4H PRN PRN Pain Score 4-6 3 days #10 tabs 02/22/23 [Rx Last Taken Unknown] clopidogrel 75 mg tablet 75 mg PO DAILY blood thinner 04/11/23 [History Last Taken Unknown] folic acid 1 mg tablet 1 mg PO DAILY vitamin 04/11/23 [History Last Taken Unknown] losartan 50 mg tablet 50 mg PO DAILY bp 04/11/23 [History Last Taken Unknown] ondansetron HCl 4 mg tablet 4 mg PO Q4H PRN nausea 04/11/23 [History Last Taken Unknown] pantoprazole 40 mg tablet,delayed release 40 mg PO Q12H stomach 04/11/23 [History Last Taken Unknown] sucralfate 1 gram tablet 1 g PO 4X/DAY stomach 04/11/23 [History Last Taken Unknown] warfarin 4 mg tablet 4 mg PO DAILY blood thinner 04/11/23 [History Last Taken Unknown] aluminum-mag hydroxide-simethicone 200 mg-200 mg-20 mg/5 mL oral susp (Advanced Antacid-Antigas) 30 ml PO DAILY PRN GERD 05/09/23 [History Last Taken Unknown] atorvastatin 80 mg tablet 80 mg PO QHS CHOLESTEROL 05/09/23 [History Last Taken Unknown] cyclobenzaprine 10 mg tablet 10 mg PO Q6H PRN pain 05/09/23 [History Last Taken Unknown] melatonin 3 mg tablet 3 mg PO QHS PRN sleep 05/09/23 [History Last Taken Unknown] metoprolol succinate 50 mg tablet,extended release 24 hr 50 mg PO BID BLOOD PRESSURE 05/09/23 [History Last Taken Unknown] potassium chloride 20 mEq/15 mL oral liquid 20 meq PO DAILY 05/09/23 [History Last Taken Unknown] scopolamine base 1 mg over 3 days transdermal patch 1 patch transdermal Q3D PRN nausea and vomiting 05/09/23 [History Last Taken Unknown] Allergy/AdvReac Type Severity Reaction Status Date / Time bee venom protein (honey bee) Allergy Hives Verified 05/09/23 15:12 amlodipine AdvReac Severe severe Verified 05/09/23 15:12 swelling in hands and feet spider venom AdvReac Other Verified 05/09/23 15:12 Family History Father Heart disease Diabetes CAD (coronary artery disease) History of coronary artery bypass surgery Cardiac pacemaker in situ Pure hypercholesterolemia Surgical History H/O umbilical hernia repair History of cystoscopy History of inguinal hernia repair, bilateral History of knee surgery History of total right knee replacement Social History (Updated 05/09/23 @ 18:[address] Noa Leyva DO) housing: halfway Smoking Status: Former smoker how long ago did patient quit smokin alcohol intake: never substance use type: does not use caffeine: Yes Type: tea Number of servings: 2 ROS ROS ED ROS Narrative Constitutional: No fever, no chills. States cannot keep warm. HEENT: No sore throat. No neck pain. No loss of vision. No rhinorrhea. Cardiovascular: 30 minutes of chest pain-resolved. No palpitations. No pedal edema. Respiratory: No cough, no shortness of breath. Abdominal: No abdominal pain. No nausea. No vomiting. Genitourinary: No dysuria. No hematuria. Musculoskeletal: No myalgias. No arthralgias. Neurologic: No headaches. No dizziness. No lightheadedness. Skin: No rash. No change in color. Psychiatric: No depression. No anxiety. EXAM Physical Exam Narrative Exam Narrative: Afebrile. Vital signs noted. Nontoxic-appearing. HEENT: Normocephalic. Atraumatic. PERRL, EOMI. Neck soft and supple. No point tenderness or step off. Cardiovascular: Regular rate and rhythm. No murmurs, rubs, or gallops appreciated. Respiratory: No tachypnea. Lungs clear to auscultation bilaterally. Gastrointestinal: Abdomen soft, nontender, with normoactive bowel sounds. No rebound or guarding. Neurological: Awake. Alert. Mentating well. Nonfocal, nonlateralizing. Skin: No rash. Normal color. No pallor. Musculoskeletal: No pedal edema. Full range of motion extremities. Const Vital Signs: 05/09/23 15:06 05/09/23 15:13 05/09/23 15:41 Temperature 97.9 F Temperature Source Temporal Pulse Rate 62 Respiratory Rate 14 Blood Pressure 89/55 L Blood Pressure Mean 66 Pulse Ox 99 Oxygen Delivery Method Room Air Fraction of Inspired Oxygen (FIO2) 98 05/09/23 16:55 05/09/23 17:21 Temperature Temperature Source Pulse Rate 59 L 61 Respiratory Rate 16 18 Blood Pressure 106/55 L 106/54 L Blood Pressure Mean 72 71 Pulse Ox 99 99 Oxygen Delivery Method Room Air Room Air Fraction of Inspired Oxygen (FIO2) MDM MDM MDM Narrative Medical decision making narrative: The differential diagnosis for his chest pain is ACS versus pneumonia versus pneumothorax. I have low suspicion for the latter given his history and physical. Of note, on arrival to the ED, he is hypotensive at 89/55. Concern would be for pneumonia although he states he is not coughing. Sepsis workup was pursued. He has already received aspirin and nitroglycerin. This could also be the cause of his hypotension. He will be bolused normal saline. I do feel that serial enzymes are indicated. In review of his chart and problem list, he does have coronary artery disease listed without angina pectoris. He also has a history of atrial fibrillation. EKG was obtained and interpreted by myself independently as atrial fibrillation with slow ventricular response at [address] changes. No STEMI. I reviewed his laboratory work and he has a leukocytosis of 13.5 with hemoglobin stable at 10.9, hematocrit 35.6, platelet count normal at 450. INR is 1.7, review of his electrolyte panel shows sodium of 135, with a BUN of 18 and creatinine elevated at 1.90. Most recently, he has had normal creatinine, but he has had elevated creatinine in the past. Glucose is appropriately elevated at 133 with normal anion gap of 8. After IV fluids, his blood pressure was within the 100s, but he had a lactic acid of 3.7. High-sensitivity troponin is 27. Repeat is currently pending, but he has been pain-free here in the emergency department. His states that when he gets anxious, he tends to get chest pain, and whenever they evaluate him, his troponins are usually negative. His urinalysis is not consistent with infection with 25-50 WBCs and 25-50 RBCs with 2+ bacteria. This was a straight cath specimen with no squamous epithelial cells. Given that they just removed his catheter because of back surgery today, I will treat him as if he had chronic Adams with cefepime. His relates history that he had blockage in the had to dilate his urethra prior to Adams insertion 4 to 6 weeks ago. He states it was inserted because he had back surgery and was unable to ambulate urinate. Patient had transient drop in his blood pressure, and given his lactic acidosis, he will be given the 30 mL/kg bolus. He continues to mentate well. I will discuss the patient with the hospitalist for admission. I discussed the patient with Dr. Leyva. He will be admitted to the ICU given his fluctuating blood pressure with concern for septic shock. Critical care time 31 minutes. History & Record Review Discussion w/independent historian: Patient and Family Lab Data Attestation: I reviewed the patient's lab results. Labs: Laboratory Results - last 24 hr 05/09/23 05/09/23 05/09/23 15:20 15:45 16:54 WBC 13.5 H RBC 3.74 L Hgb 10.9 L Hct 35.6 L MCV 95.2 H MCH 29.1 MCHC 30.6 L RDW Std Deviation 57.1 H RDW Coeff of Abdiel 16.3 H Plt Count 450 MPV 9.7 Immature Gran % (Auto) 0.700 Neut % (Auto) 87.5 H Lymph % (Auto) 4.1 L Mitchell % (Auto) 7.3 Eos % (Auto) 0.1 Baso % (Auto) 0.3 Absolute Neuts (auto) 11.9 H Absolute Lymphs (auto) 0.55 L Nucleated RBC % 0 PT 19.8 H INR 1.7 APTT 40.4 H Sodium 135 L Potassium 4.4 Chloride 102 Carbon Dioxide 25.0 Anion Gap 8 BUN 18 Creatinine 1.90 H Estim Creat Clear Calc 48.15 Est GFR (MDRD) Af Amer 45 L Est GFR (MDRD) Non-Af 37 L BUN/Creatinine Ratio 9.5 L Glucose 133 H Lactic Acid 3.7 H* Calcium 10.0 Total Bilirubin 0.50 AST 22 ALT 9 L Alkaline Phosphatase 130 H Troponin I High Sens 27 Total Protein 8.1 Albumin 2.8 L Globulin 5.3 H Albumin/Globulin Ratio 0.5 L Urine Color Red Urine Clarity Turbid Urine pH 5.0 Ur Specific [place] 1.020 Urine Protein 500 H Urine Glucose (UA) Normal Urine Ketones 15 H Urine Occult Blood 250 H Urine Nitrite Negative Urine Bilirubin 1 H Urine Urobilinogen Normal Ur Leukocyte Esterase 500 H Urine RBC 25-50 SEEN Urine WBC 25-50 SEEN Ur Squamous Epith Cells 0 SEEN Urine Bacteria 2+ Urine Mucus 0 SEEN Radiography Diagnostic Testing: Clinical Impression(s) from Imaging Studies Chest X-Ray 05/09/23 15:55 IMPRESSION: No definite acute or significant abnormality seen. Electronically Signed: Rodrigo Wilhelm MD at 16:08 EST , Management Discussion w/another healthcare provider: Hospitalist Critical Care Time Critical care time (excluding procedures): 30-74 minutes (31 minutes), Including time spent:, Discussing w/Patient &/or Family/Compressor Battery Pellets, Discussing w/Consultants, Arranging Admission or Transfer and Performing Direct Patient Care at Bedside Discharge Plan Dx/Rx/DC Orders Clinical Impression: Urinary tract infection in male, Paroxysmal atrial fibrillation, Sepsis Disposition Disposition: Acute Care Hospital [facility]
[2023-05-09] MEDS: 0.9% Normal Saline (1000mL) 1,000 ML 999 ML IV ×5 (15:45→22:28)
--- NOTE | 2023-05-09 15:55 | RAD_ITS ---
STUDY: X-RAY CHEST REASON FOR EXAM: Male, 72 years old. CAD TECHNIQUE: Single AP portable view of the chest. COMPARISON: 02/26/2023. FINDINGS: The lungs are clear and expanded. There is no demonstrated pleural abnormality. Normal size heart. Normal mediastinum and [place]. Normal visualized pulmonary arteries. Normal visualized aortic arch and descending thoracic aorta. There are diffuse degenerative changes of the visualized thoracic spine. Since prior study, bilateral [place] rods have been positioned on both sides of the thoracolumbar spine. Normal visualized ribs, clavicles, and shoulders. There is no demonstrated abnormality of the visualized soft tissue structures of the upper abdomen. RAD/Chest 1 View (Portable) IMPRESSION: No definite acute or significant abnormality seen. Electronically Signed: Rodrigo Wilhelm MD at 16:08 EST ,
[2023-05-09 15:57] LABS: Absolute Lymphocyte Count 0.55 X10^3/uL (0.83-4.51); Absolute Neutrophil Count 11.9 X10^3/uL (2.0-7.7); Basophil# 0.04 X10^3/uL; Basophil% 0.3 % (0-1); Eosinophil# 0.01 X10^3/uL; Eosinophils% 0.1 % (0-5); Hematocrit 35.6 % (40-54); Hemoglobin 10.9 g/dL (13.0-16.5); Lymphocyte # 0.55 X10^3/ul (0.83-4.51); Lymphocyte % 4.1 % (19-41); Mean Corp Hgb Conc 30.6 g/dL (32-36); Mean Corpuscular Hgb 29.1 pg (27.0-32.0); Mean Corpuscular Volume 95.2 fL (80-94); Mean Platelet Vol. 9.7 fl (6.2-12.0); Monocyte# 0.99 X10^3/uL; Monocyte% 7.3 % (0-10); NRBC Flagged by Analyzer 0 % (0-5); Neutrophil # 11.85 X10^3/uL (2.7-7.7); Neutrophil % 87.5 % (47-70); POSITIVE DIFFERENTIAL YES; Platelet Count 450 K/mm3 (150-450); RBC Distribution Width CV 16.3 % (11.6-14.6); RBC Distribution Width SD 57.1 fl (35.1-43.9); Red Blood Count 3.74 M/mm3 (4.6-6.2); White Blood Count 13.5 K/mm3 (4.4-11.0)
[2023-05-09 16:09] LABS: International Normalized Ratio 1.7; Prothrombin Time (Protime)PT. 19.8 SECONDS (11.7-14.9)
[2023-05-09 16:11] LABS: Partial Thromboplast Time 40.4 Seconds (24.1-36.2)
[2023-05-09 16:20] LABS: ALB/GLOB Ratio 0.5 RATIO (0.9-2.4); AST(SGOT) 22 U/L (15-37); Alanine Aminotransfer ALT/SGPT 9 U/L (16-61); Albumin, Serum 2.8 g/dL (3.2-5.0); Alkaline Phosphatase 130 U/L (45-117); Anion Gap 8 (5-15); BUN 18 mg/dL (7-18); BUN/Creat Ratio 9.5 RATIO (10-20); Chloride 102 mmol/L (98-107); EST Glomerular Filtration Rate 37 mL/min (>60); Est Glom Filt Rate - Afr Amer 45 mL/min (>60); Estimated Creatinine Clearance 48.15 ml/min; Globulin 5.3 g/dL (2.2-4.2); Glucose 133 mg/dL (74-106); Potassium 4.4 mmol/L (3.5-5.1); Protein, Total 8.1 g/dL (6.4-8.2); Sodium Level 135 mmol/L (136-145); Troponin-I HS (w/2H Reflex) 27 pg/mL (3.0-78.0)
[2023-05-09 16:40] LABS: Lactic Acid 3.7 mmol/L (0.4-1.9)
[2023-05-09 16:59] LABS: Mucous, Urine 0 SEEN /hpf (<or=2+); Squamous Epithelial Cells - UA 0 SEEN /hpf (0-5)
[2023-05-09 17:13] LABS: Color, Urine Red (Yellow); Glucose, Dipstick Normal (Normal); Ketone-Dipstick 15 mg/dl (Negative); Leukocyte Esterase-Dipstick 500 /ul (Negative); Nitrite-Dipstick Negative (Negative); Occult Blood-Urine 250 /ul (Negative); Protein-Dipstick 500 mg/dl (Negative); Urine Clarity Turbid (Clear); Urine Urobilinogen Normal (Normal)
[2023-05-09 17:14] LABS: Urine Bilirubin Dipstick 1 mg/dL (Negative)
[2023-05-09 17:33] LABS: Bacteria 2+ /hpf (None Seen); Red Blood Cells-Urine 25-50 SEEN /hpf (0-5); White Blood Cells 25-50 SEEN /hpf (0-5)
[2023-05-09 17:53] LABS: Reflex Troponin-HS? (from REC) Y
--- NOTE | 2023-05-09 18:09 | ED.RN ---
PER DR CHEEMA, NEW 0.9% SALINE BOLUS ORDER IS BASED OFF OF KG/ML FOR SEPSIS PROTOCOL & TOTALS 4000MLS. PT HAS ALREADY RECEIVED 1000ML AND THIS IS TO BE TAKEN INTO ACCOUNT FOR THE 4000MLS.
--- NOTE | 2023-05-09 18:13 | PCM.HP.STD ---
[facility] - General General Date of Admission: 05/09/23 Date of Service: 05/09/23 Chief Complaint: Chest pain HPI Narrative GUSTAVO HARTMAN, is a 72 M who presented to the emergency department at [facility] on 05/09/2023 from [facility] with reported chest pain that started about noon. He was at [facility] at about noon getting his Adams catheter out. It had been in for about 4 weeks. He had a recent admission from 04/11/2023 through 04/12/2023 for intractable back pain/discitis and epidural abscess. Imaging at that time showed near complete resolution at a T11-L1 epidural phlegmon or abscess and the case was discussed with Dr. Phipps from spine surgery and they recommended he be transferred to tertiary care for neurosurgical evaluation he was transferred to tertiary center and then after being discharged from the tertiary center he was sent to him [facility] for ongoing therapy. He is no longer on antibiotics. His indicates that he has frequent chest pain and he actually is on Ranexa. The chest pain had resolved by the time he came to the emergency department. He stated after he returned to the [facility] facility from [facility] he felt like he could not get warm. He denied any fever or chills, has not had a cough. He denies any diaphoresis or shortness of breath and has had no nausea or vomiting. He received aspirin nitroglycerin and his chest pain resolved. At this time he is chest pain-free and he had a normal troponin. Upon arrival he was found to be hypotensive with a blood pressure of 89/55 (at his last hospitalization his blood pressure on the day of discharge was 159/59). Further workup was pursued at that time. His reports that he had antibiotic intolerance with profuse nausea and vomiting to his previous IV antibiotics. It looks like it may have been ceftriaxone which we are not currently giving him here. Vital signs on presentation showed a temperature of 97.9, blood pressure 89/55, heart rate was 62, respiratory was 14 and oxygen saturation was 99% on room air. His CBC showed a significant leukocytosis with a white count of 13.5, and anemia with a hemoglobin of 10.9 (this seems to be his baseline), and a left shift with an 87.5% neutrophilia. He is on Coumadin at baseline and his INR was 1.7. He is on Coumadin for A-fib. His sodium was slightly low at 135 which is not normal. His serum creatinine was 1.9 with a baseline of 0.85-1.2 and a normal BUN. His glucose is elevated as he is not diabetic at baseline at 133. Lactic acid was 3.7. Liver enzymes are unremarkable. His urine is suggestive of infection and some dehydration or decreased flow state with a urine specific gravity of 1.02. He had some occult blood, leuk esterase, white cells and 2+ bacteria. Chest x-ray is unremarkable. He was treated with cefepime in the emergency department after cultures were obtained. Both blood and urine. His blood pressure seems to be responding to IV fluids however he is only had 104 L on he still relatively hypotensive compared to his previous baseline. Request for ICU admission was made for sepsis. [facility] Medical History (Updated 05/09/23 @ 18:[address] 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 Morbid obesity LILI on CPAP Paroxysmal atrial fibrillation Polyarthritis Pure hypercholesterolemia Viral syndrome Wears glasses Home Medications citalopram 20 mg tablet 20 mg PO DAILY MOOD 09/21/14 [History Last Taken 02/16/23] tamsulosin 0.4 mg capsule 0.4 mg PO DAILY bph 05/18/19 [History Last Taken 02/16/23] hydroxychloroquine 200 mg tablet 200 mg PO BID arthritis 04/25/21 [History Last Taken 02/16/23] Handicap Placard #1 ea 07/05/21 [Rx Last Taken Unknown] isosorbide mononitrate 60 mg tablet,extended release 24 hr 60 mg PO BID heart 02/17/23 [History Last Taken 02/16/23] nitroglycerin 0.4 mg sublingual tablet 0.4 mg sublingual Q5M PRN chest pain 02/17/23 [History Last Taken Unknown] clopidogrel 75 mg tablet 75 mg PO DAILY blood thinner 04/11/23 [History Last Taken Unknown] folic acid 1 mg tablet 1 mg PO DAILY vitamin 04/11/23 [History Last Taken Unknown] losartan 50 mg tablet 50 mg PO DAILY bp 04/11/23 [History Last Taken Unknown] ondansetron HCl 4 mg tablet 4 mg PO Q4H PRN nausea 04/11/23 [History Last Taken Unknown] pantoprazole 40 mg tablet,delayed release 40 mg PO Q12H stomach 04/11/23 [History Last Taken Unknown] sucralfate 1 gram tablet 1 g PO 4X/DAY stomach 04/11/23 [History Last Taken Unknown] warfarin 4 mg tablet 4 mg PO QHS blood thinner 04/11/23 [History Last Taken Unknown] acetaminophen 500 mg tablet 1,000 mg PO BID 05/09/23 [History Last Taken Unknown] aluminum-mag hydroxide-simethicone 200 mg-200 mg-20 mg/5 mL oral susp (Advanced Antacid-[place]as) 30 ml PO DAILY PRN GERD 05/09/23 [History Last Taken Unknown] amoxicillin 875 mg tablet 875 mg PO Q12H OSTEOMYELITIS 05/09/23 [History Last Taken Unknown] atorvastatin 80 mg tablet 80 mg PO QHS CHOLESTEROL 05/09/23 [History Last Taken Unknown] cyclobenzaprine 10 mg tablet 10 mg PO Q6H PRN pain 05/09/23 [History Last Taken Unknown] food supplemt, lactose-reduced 0.06 gram-1 kcal/mL oral liquid (Boost High Protein) 120 ml PO BIDCM 05/09/23 [History Last Taken Unknown] melatonin 3 mg tablet 3 mg PO QHS PRN sleep 05/09/23 [History Last Taken Unknown] metoprolol succinate 50 mg tablet,extended release 24 hr 50 mg PO BID BLOOD PRESSURE 05/09/23 [History Last Taken Unknown] mirtazapine 15 mg tablet 15 mg PO QHS 05/09/23 [History Last Taken Unknown] naloxone 4 mg/actuation nasal spray 4 mg intranasal Q3M PRN opioid overdose 05/09/23 [History Last Taken Unknown] nystatin 100,000 unit/gram topical powder 1 applic topical BID SKIN IRRITATION 05/09/23 [History Last Taken Unknown] oxycodone 5 mg tablet 5 - 10 mg PO Q4H PRN Pain Score 4-6 05/09/23 [History Last Taken Unknown] potassium chloride 20 mEq/15 mL oral liquid 20 meq PO DAILY 05/09/23 [History Last Taken Unknown] ranolazine 500 mg tablet,extended release,12 hr 500 mg PO BID HEART DISEASE 05/09/23 [History Last Taken Unknown] scopolamine base 1 mg over 3 days transdermal patch 1 patch transdermal Q3D PRN nausea and vomiting 05/09/23 [History Last Taken Unknown] sennosides 8.6 mg-docusate sodium 50 mg tablet (Senna with Docusate Sodium) 1 tab-cap PO BID 05/09/23 [History Last Taken Unknown] zinc oxide 20 % topical ointment 1 applic topical BID 05/09/23 [History Last Taken Unknown] Allergy/AdvReac Type Severity Reaction Status Date / Time bee venom protein (honey bee) Allergy Hives Verified 05/09/23 15:12 amlodipine AdvReac Severe severe Verified 05/09/23 15:12 swelling in hands and feet spider venom AdvReac Other Verified 05/09/23 15:12 Family History Father Heart disease Diabetes CAD (coronary artery disease) History of coronary artery bypass surgery Cardiac pacemaker in situ Pure hypercholesterolemia Surgical History H/O umbilical hernia repair History of cystoscopy History of inguinal hernia repair, bilateral History of knee surgery History of total right knee replacement Social History (Updated 05/09/23 @ 18:[address] Noa Leyva DO) housing: [facility] Smoking Status: Former smoker how long ago did patient quit smokin alcohol intake: never substance use type: does not use caffeine: Yes Type: tea Number of servings: 2 ROS Constitutional Constitutional: Reports chills, fatigue and weakness; Denies anorexia, change in weight, fever(s), malaise, night sweats or other Eyes Eyes: Denies blurry vision, change in eye color, change in vision, discharge from eye(s), double vision, erythema, eye pain, loss of vision or other ENT HEENT: Denies abnormal hearing, dysphagia, ear pain, epistaxis, headache(s), hearing loss, nasal congestion, nasal discharge, post nasal drip, sinus pressure, sore throat or other Cardiovascular Cardiovascular: Reports chest pain; Denies claudication, dyspnea on exertion, edema, lightheadedness, orthopnea, palpitations, paroxysmal nocturnal dyspnea, rapid heart rate, syncope or other Respiratory/Chest Respiratory/Chest: Denies cough, dyspnea, excessive phlegm production, hemoptysis, productive cough, shortness of breath at rest, shortness of breath with exertion, wheezing or other Gastrointestinal Gastrointestinal: Denies abdominal pain, coffee ground emesis, constipation, diarrhea, dyspepsia, hematemesis, hematochezia, loose stools, melena, nausea, vomiting or other Genitourinary Genitourinary: Reports difficulty urinating and other Details: Adams just removed today ; Denies burning urination, dysuria, hematuria, nocturia, urinary frequency, urinary hesitancy, urinary incontinence or urinary urgency Musculoskeletal Musculoskeletal: Reports other Details: Patient denies any back pain at this time ; Denies arthralgias, back pain, joint pain, joint stiffness, joint swelling, myalgias or neck pain Neurologic Neurologic: Reports other Details: Generalized weakness ; Denies abnormal gait, abnormal speech, confusion, disequilibrium, dizziness, focal weakness, headache(s), numbness, paresthesias, seizure-like activity, seizures, syncope, tingling or tremor(s) Psychiatric Psychiatric: Denies anxiety, depression, homicidal ideation, suicidal ideation or other Endocrine Endocrinology: Denies change in body appearance, cold intolerance, excessive sweating, heat intolerance, polydipsia, polyuria or other Hematologic/Lymphatic Hematologic/Lymphatic: Denies anemia, easy bleeding, easy bruising, lymphadenopathy or other Vital Signs Vital Signs Vital Signs: 05/09/23 15:06 05/09/23 15:13 05/09/23 15:41 Temperature 97.9 F Temperature Source Temporal Pulse Rate 62 Respiratory Rate 14 Blood Pressure 89/55 L Blood Pressure Mean 66 Pulse Ox 99 Oxygen Delivery Method Room Air Fraction of Inspired Oxygen (FIO2) 98 05/09/23 16:55 05/09/23 17:21 05/09/23 18:10 Temperature Temperature Source Pulse Rate 59 L 61 61 Respiratory Rate 16 18 19 H Blood Pressure 106/55 L 106/54 L 114/54 L Blood Pressure Mean 72 71 74 Pulse Ox 99 99 99 Oxygen Delivery Method Room Air Room Air Room Air Fraction of Inspired Oxygen (FIO2) Weight Weight: 129.2 kg Body Mass Index (BMI) 42.0 Physical Exam Const alert, oriented x3, no apparent distress and well nourished; Negative for average body habitus or healthy appearing Constitutional Narrative: Morbidly obese, white male, lying in bed emergency department with multiple blankets, currently appears comfortable but ill-appearing, appears chronically ill General Appearance: cooperative HEENT normocephalic, head/scalp atraumatic and moist oral mucous membranes HEENT Narrative: Dentition is fair, Mallampati is 3, no thrush, mild hearing loss Eyes PERRL, EOMs intact bilaterally and conjunctivae normal Eyes Narrative: No scleral icterus Neck no lymphadenopathy and supple Neck Narrative: Neck is short and thick, trachea is midline, no noted thyroid enlargement or nodularity Resp normal respiratory effort, no retractions, no use of accessory muscles and clear to auscultation bilaterally Auscultation: Negative for rales, rhonchi or wheezes Cardio regular rate, regular rhythm, S1 normal heart sound, S2 normal heart sound, no murmurs, no rub, no gallops and no clicks Cardio Narrative: Distant heart tones due to body habitus GI normal to inspection, nondistended, normoactive bowel sounds, soft to palpation and non-tender Extremity no clubbing, cyanosis or edema Extremity Narrative: Pedal pulses are 2+ Skin no jaundice, no petechiae and no mottling Skin Narrative: Unable to assess back due to gurney size and patient size Neuro oriented x3, CN's II-XII intact bilaterally, moves all extremities and no focal motor deficits Neuro Narrative: Generalized weakness noted Speech: speech normal Psych Psych Narrative: Affect is slightly flat which is appropriate for the current setting, eye contact is good and mood is stable Results Lab / Micro Data 05/09/23 15:20 05/09/23 15:20 Labs: Laboratory Results - last 24 hr 05/09/23 15:20: WBC 13.5 H, RBC 3.74 L, Hgb 10.9 L, Hct 35.6 L, MCV 95.2 H, MCH 29.1, MCHC 30.6 L, RDW Std Deviation 57.1 H, RDW Coeff of Abdiel 16.3 H, Plt Count 450, MPV 9.7, Immature Gran % (Auto) 0.700, Neut % (Auto) 87.5 H, Lymph % (Auto) 4.1 L, [place] % (Auto) 7.3, Eos % (Auto) 0.1, Baso % (Auto) 0.3, Absolute Neuts (auto) 11.9 H, Absolute Lymphs (auto) 0.55 L, Nucleated RBC % 0, PT 19.8 H, INR 1.7, APTT 40.4 H, Sodium 135 L, Potassium 4.4, Chloride 102, Carbon Dioxide 25.0, Anion Gap 8, BUN 18, Creatinine 1.90 H, Estim Creat Clear Calc 48.15, Est GFR (MDRD) Af Amer 45 L, Est GFR (MDRD) Non-Af 37 L, BUN/Creatinine Ratio 9.5 L, Glucose 133 H, Calcium 10.0, Total Bilirubin 0.50, AST 22, ALT 9 L, Alkaline Phosphatase 130 H, Troponin I High Sens 27, Total Protein 8.1, Albumin 2.8 L, Globulin 5.3 H, Albumin/Globulin Ratio 0.5 L 05/09/23 15:45: Lactic Acid 3.7 H* 05/09/23 16:54: Urine Color Red, Urine Clarity Turbid, Urine pH 5.0, Ur Specific [place] 1.020, Urine Protein 500 H, Urine Glucose (UA) Normal, Urine Ketones 15 H, Urine Occult Blood 250 H, Urine Nitrite Negative, Urine Bilirubin 1 H, Urine Urobilinogen Normal, Ur Leukocyte Esterase 500 H, Urine RBC 25-50 SEEN, Urine WBC 25-50 SEEN, Ur Squamous Epith Cells 0 SEEN, Urine Bacteria 2+, Urine Mucus 0 SEEN Micro: Microbiology 05/09/23 15:45 Mucosa - Nose SARS-CoV-2, Influenza & RSV (PCR) - Final Imaging Radiology Impression Chest X-Ray 05/09/23 15:55 IMPRESSION: No definite acute or significant abnormality seen. Electronically Signed: Rodrigo Wilhelm MD at 16:08 EST , Assessment & Plan Assessment/Plan (1) Sepsis: (2) Lactic acidosis: (3) TEODORO (acute kidney injury): (4) Subtherapeutic international normalized ratio (INR): (5) Leukocytosis: (6) Chest pain: PLAN: Plan Sepsis secondary to suspected urinary tract infection -Patient has leukocytosis, lactic acidosis, TEODORO, hypotension--> meets criteria per SEP 1 -Fluid boluses given at 30 cc/kg body weight due to hypotension--> total of 4 L -Thus far seems to be fluid responsive however will need to reassess after fluids are in -Cannot exclude the need for pressors at this time -Blood and urine cultures were obtained the emergency department -Continue cefepime and add vancomycin due to frequent hospitalizations and instrumentation -Check MRSA PCR -Admit to ICU with consult to critical care medicine Chest pain -Patient does have a history of coronary disease -Initial troponin was unremarkable at 27 with repeat pending -EKG shows chronic atrial fibrillation without any ST-T wave changes concerning for acute ischemia -Patient is on Ranexa at home so we will continue Leukocytosis -Secondary to the above -Continue to monitor -Should improve with antibiotics Lactic acidosis -Cycle per sepsis protocol -Fluid boluses in progress TEODORO -Suspect related to decreased perfusion from hypotension however patient did just have Adams removed -Bladder scan as needed -IV fluids as noted above -Keep maps greater than 65 Hypotension -Secondary to the above -Baseline appears to run in the 140s to 150s systolic -89 on presentation -Fluid boluses as above -Hold home antihypertensives Recent epidural abscess/osteomyelitis of lumbar spine -Patient has completed oral antibiotics however it does appear he is still on amoxicillin despite him telling me his completed antibiotics -Continue home amoxicillin--> cefepime should cover but I do not want to get this lost if cefepime discontinued depending on culture results -Not currently having any back pain -Monitor clinically with low threshold for imaging if back pain develops LILI -Continue home CPAP CAD/HTN/HPL - reports he had a stent in February -Continue Plavix and Coumadin -Continue high-dose atorvastatin -Hold antihypertensives due to hypotension on presentation -Continue home Ranexa GERD with history of GI bleed -Continue twice daily PPI -Continue Carafate Chronic atrial fibrillation -Patient is in rate controlled A-fib at this time -Hold metoprolol for now due to hypotension but low threshold to reinitiate if blood pressure stabilizes to avoid tachycardia -Continue Coumadin at home dose with initiation of antibiotics despite currently subtherapeutic BPH with obstruction -Patient had urinary retention postoperatively and had Adams removed after about 4 weeks today at [facility]. -Follow for urine output -Continue home Flomax -Bladder scan as needed Polyarthritis -Continue home hydroxychloroquine Depression -Continue home citalopram Debility -PT/OT consultation -Patient will need to be discharged back to skilled facility once medically stabilized Morbid obesity -BMI is 42.1 -Recommend weight loss -Complicates treatment, prognosis, outcomes DVT prophylaxis -INR is subtherapeutic at 1.7 -Will give subcu heparin 3 times daily until INR is therapeutic CODE STATUS Full code Sepsis Attestation Sepsis Alert: Yes Sepsis Attestation: Agree w/Sepsis Date exam was performed: 05/09/23 Time exam was performed: 18:13 Possible Source of Sepsis: Genitourinary Sepsis Organ Dysfunction Criteria Present: SBP < 90 mmHg or MAP < 65 mmHg and Lactic Acid > 2 mmol/L Supportive Findings: Patient meets criteria per SEP 1 criteria with leukocytosis, elevated lactic acid, hypotension, TEODORO--> patient he has Medicare A and B Fluid Resuscitation Fluid resuscitation indicated?: Yes Fluid Resuscitation ordered: 30 ml/kg fluid bolus ordered Amount of fluid ordered: 4,000 Charges/Coding Procedures Hospitalists Procedures: 75621 Critical Care 1st Hr
--- NOTE | 2023-05-09 18:15 | NURSING ---
ICU HERN[facility]N SEPSIS, UTI
[2023-05-09] MEDS: Cefepime HCl 2 GM in 0.9% Normal Saline (100mL MB+) 100 ML IV ×2 (18:20→23:21)
[2023-05-09 18:32] LABS: Troponin-I HS 22 pg/mL (3.0-78.0)
[2023-05-09 18:42] LABS: CPK Total, Creatine Kinase 34 U/L (39-308)
[2023-05-09 19:57] LABS: Reflex Lactate? Y
[2023-05-09] MEDS: 0.9% Saline Lock 10 ML Syringe IV (20:50)
[2023-05-09] MEDS: Vancomycin HCl 2,000 MG in 0.9% Normal Saline (500mL Bag) 500 ML 250 MG IV (20:50)
[2023-05-09] MEDS: Ranolazine 500 MG Tablet PO (20:55)
[2023-05-09] MEDS: Hydroxychloroquine 200 MG Tablet PO (20:55)
[2023-05-09] MEDS: Senna/Docusate Sodium 1 Tablet PO (20:55)
[2023-05-09] MEDS: Mirtazapine 15 MG Tablet PO (20:55)
[2023-05-09] MEDS: Pantoprazole Sodium 40 MG Tablet PO (20:55)
[2023-05-09] MEDS: Atorvastatin Calcium 80 MG Tablet PO (20:55)
[2023-05-09] MEDS: Zinc Oxide 30gm Tube 1 APPLIC TOPICAL (20:56)
[2023-05-09] MEDS: Heparin Injection (Vial) 5,000 UNIT/ML VIAL 5000 UNIT SC (20:57)
[2023-05-09] MEDS: Sucralfate 1 GM Tablet PO (20:57)
[2023-05-09 20:59] LABS: Troponin-I HS 18 pg/mL (3.0-78.0)
--- NOTE | 2023-05-09 21:24 | PCM.RX.CS ---
Consult Antibiotic Management Pharmacy has been consulted to manage selected antibiotic: Vancomycin Type of Intervention Type of Consult: New start Labs Labs: Sodium 135 mmol/L (136-145) L 05/09/23 15:20 Potassium 4.4 mmol/L (3.5-5.1) 05/09/23 15:20 Chloride 102 mmol/L (98-107) 05/09/23 15:20 Carbon Dioxide 25.0 mmol/L (21.0-32.0) 05/09/23 15:20 Anion Gap 8 (5-15) 05/09/23 15:20 BUN 18 mg/dL (7-18) 05/09/23 15:20 Creatinine 1.90 mg/dL (0.70-1.30) H 05/09/23 15:20 Est GFR (MDRD) Af Amer 45 mL/min (>60) L 05/09/23 15:20 Est GFR (MDRD) Non-Af 37 mL/min (>60) L 05/09/23 15:20 BUN/Creatinine Ratio 9.5 RATIO (10-20) L 05/09/23 15:20 Glucose 133 mg/dL (74-106) H 05/09/23 15:20 Microbiology Microbiology: Microbiology 05/09/23 15:45 Mucosa - Nose SARS-CoV-2, Influenza & RSV (PCR) - Final Dosing Weight Weight used for dosin.8 kg Estimated Creatinine Clearance Estimated Creatinine Clearance: 45.9 Goal Trough Goal Trough: 15-20 mcg/mL Pharmacy Plan for Drug Dosing Pharmacy Plan for Drug Dosing: Pharmacy Service will continue to monitor and adjust dosing as required. Follow-Up Labs Follow-Up Labs: Trough: Vancomycin Date/Time Labs Ordered Labs to be done on [date and time ordered]: 05/10 @ 5908
[2023-05-09 22:32] LABS: Troponin-I HS 22 pg/mL (3.0-78.0)
[2023-05-09 22:47] LABS: Lactic Acid 1.4 mmol/L (0.4-1.9)
[2023-05-10] VITALS (14 sets, daily range): BP systolic 106–151; BP diastolic 51–101; PULSE 64–88; RESP 12–18; TEMP 36.1–36.4; O2SAT 96–99; BMI 39.2
[2023-05-10 02:46] LABS: Troponin-I HS 19 pg/mL (3.0-78.0)
[2023-05-10] MEDS: 0.9% Saline Lock 10 ML Syringe IV (03:56)
[2023-05-10 04:01] LABS: Absolute Neutrophil Count 6.2 X10^3/uL (2.0-7.7); Basophil# 0.04 X10^3/uL; Basophil% 0.5 % (0-1); Eosinophil# 0.25 X10^3/uL; Eosinophils% 3.1 % (0-5); Hematocrit 27.7 % (40-54); Hemoglobin 8.5 g/dL (13.0-16.5); Lymphocyte % 8.6 % (19-41); Mean Corp Hgb Conc 30.7 g/dL (32-36); Mean Corpuscular Hgb 28.8 pg (27.0-32.0); Mean Corpuscular Volume 93.9 fL (80-94); Mean Platelet Vol. 9.5 fl (6.2-12.0); Monocyte# 0.88 X10^3/uL; Monocyte% 10.9 % (0-10); NRBC Flagged by Analyzer 0 % (0-5); Neutrophil # 6.19 X10^3/uL (2.7-7.7); Neutrophil % 76.3 % (47-70); Platelet Count 312 K/mm3 (150-450); RBC Distribution Width CV 16.3 % (11.6-14.6); RBC Distribution Width SD 55.2 fl (35.1-43.9); Red Blood Count 2.95 M/mm3 (4.6-6.2); White Blood Count 8.1 K/mm3 (4.4-11.0)
[2023-05-10 04:14] LABS: M R Staph aureus DNA By PCR Negative (Negative); Probe Check PASS; Specimen Processing Control PASS
[2023-05-10 04:21] LABS: Anion Gap 7 (5-15); BUN 17 mg/dL (7-18); BUN/Creat Ratio 13.8 RATIO (10-20); Chloride 112 mmol/L (98-107); Creatinine, Serum 1.23 mg/dL (0.70-1.30); EST Glomerular Filtration Rate 62 mL/min (>60); Est Glom Filt Rate - Afr Amer 75 mL/min (>60); Estimated Creatinine Clearance 71.09 ml/min; Glucose 101 mg/dL (74-106); Magnesium 1.8 mg/dL (1.6-2.6); Phosphorus 3.8 mg/dL (2.5-4.9); Sodium Level 141 mmol/L (136-145)
[2023-05-10] MEDS: Heparin Injection (Vial) 5,000 UNIT/ML VIAL 5000 UNIT SC ×3 (05:39→20:05)
--- NOTE | 2023-05-10 06:33 | EX.PCM.CONCC ---
Assessment & Plan Assessment/Plan (1) Sepsis: PLAN: Plan RECOMMENDATIONS: 1. Continue empiric antibiotics, pending finalized culture results. 2. Continue nocturnal CPAP therapy per home regimen. 3. Encourage incentive spirometer use and mobilize patient as tolerated. 4. Recommend PT/OT evaluations. 5. The patient is medically stable for transfer out of the intensive care unit. 6. Will sign off from a critical care perspective. Please call with any additional questions. IMPRESSIONS: 1. Sepsis The patient presented to the hospital with sepsis due to suspected urinary tract infection with acute sepsis related organ dysfunction as evidenced by lactic acidemia and acute kidney injury. The patient had fluid responsive hypotension and never required the initiation of vasopressor support. Plan to continue antibiotics as ordered, pending finalized culture results. 2. Acute kidney injury Most likely prerenal in etiology in the setting of #1. Creatinine has normalized with volume expansion. Continue to monitor urine output. No current indication for renal replacement therapy. 3. Recent hospitalization for epidural abscess/osteomyelitis of the lumbar spine/obstructive sleep apnea/coronary artery disease/atrial fibrillation Complicates care, management, recovery and prognosis. It appears that the patient has already completed his antibiotic treatment course regarding his hospitalization for epidural abscess in April. The remainder of his home medications can be continued as indicated. Recommend PT/OT evaluations today. This note was generated with [employer] dictation software. It may contain incorrect words, spelling, and punctuation that were not noted in checking the note before signing. HPI Consult Data Date of Consult: 05/11/23 HPI Narrative Reason for Consultation: Sepsis HPI Narrative: The patient is a 72-year-old male, with a history as below, who presented to the emergency department on May 08 from his residential facility with chest discomfort. The patient has a history of chronic chest discomfort and is on Ranexa as an outpatient. He had a recent hospitalization at the beginning of April for intractable back pain with an epidural abscess. Following his hospitalization he was sent to the residential facility with a Adams catheter in place. His Adams was apparently removed yesterday. The patient does report a history of sleep apnea, for which he has been compliant with use of nocturnal CPAP therapy. He currently denies any specific complaints. On presentation to the emergency department, the patient was documented to be afebrile with a presenting blood pressure of 89/55 mmHg. Laboratory evaluation revealed a white blood cell count of 14,000. Chemistry profile was notable for a creatinine of 1.9 with a lactate of 3.7. Urine analysis was positive for leukocyte esterase and 2+ urine bacteria. Chest x-ray demonstrated no acute cardiopulmonary process. Blood and urine cultures were obtained. The patient received supplemental IV fluid hydration and was initiated on antimicrobials. He was subsequently admitted to the medical intensive care unit for further management. Overnight, the patient has remained clinically stable. The patient responded from a hemodynamic perspective to IV fluid resuscitation. He never had to be initiated on vasopressor support. [facility] Medical History (Updated 05/10/23 @ 14:25 by Anca Arellano NP-C) Ambulates with cane Anemia Anxiety and depression Arthritis Atherosclerotic heart disease of [place] coronary artery without angina pectoris Atrial fibrillation Chronic UTI CKD (chronic kidney disease), stage III Depression Essential hypertension Former smoker GERD (gastroesophageal reflux disease) Gout History of left heart catheterization (LHC) (~07/29/19) prison (current) use of anticoagulants Morbid obesity LILI on CPAP Paroxysmal atrial fibrillation Polyarthritis Pure hypercholesterolemia Viral syndrome Wears glasses Home Medications citalopram 20 mg tablet 20 mg PO DAILY MOOD 09/21/14 [History Last Taken 02/16/23] tamsulosin 0.4 mg capsule 0.4 mg PO DAILY bph 05/18/19 [History Last Taken 02/16/23] hydroxychloroquine 200 mg tablet 200 mg PO BID arthritis 04/25/21 [History Last Taken 02/16/23] Handicap Placard #1 ea 07/05/21 [Rx Last Taken Unknown] isosorbide mononitrate 60 mg tablet,extended release 24 hr 60 mg PO BID heart 02/17/23 [History Last Taken 02/16/23] nitroglycerin 0.4 mg sublingual tablet 0.4 mg sublingual Q5M PRN chest pain 02/17/23 [History Last Taken Unknown] clopidogrel 75 mg tablet 75 mg PO DAILY blood thinner 04/11/23 [History Last Taken Unknown] folic acid 1 mg tablet 1 mg PO DAILY vitamin 04/11/23 [History Last Taken Unknown] losartan 50 mg tablet 50 mg PO DAILY bp 04/11/23 [History Last Taken Unknown] ondansetron HCl 4 mg tablet 4 mg PO Q4H PRN nausea 04/11/23 [History Last Taken Unknown] pantoprazole 40 mg tablet,delayed release 40 mg PO Q12H stomach 04/11/23 [History Last Taken Unknown] sucralfate 1 gram tablet 1 g PO 4X/DAY stomach 04/11/23 [History Last Taken Unknown] warfarin 4 mg tablet 4 mg PO QHS blood thinner 04/11/23 [History Last Taken Unknown] acetaminophen 500 mg tablet 1,000 mg PO BID 05/09/23 [History Last Taken Unknown] aluminum-mag hydroxide-simethicone 200 mg-200 mg-20 mg/5 mL oral susp (Advanced Antacid-[place]) 30 ml PO DAILY PRN GERD 05/09/23 [History Last Taken Unknown] amoxicillin 875 mg tablet 875 mg PO Q12H OSTEOMYELITIS 05/09/23 [History Last Taken Unknown] atorvastatin 80 mg tablet 80 mg PO QHS CHOLESTEROL 05/09/23 [History Last Taken Unknown] cyclobenzaprine 10 mg tablet 10 mg PO Q6H PRN pain 05/09/23 [History Last Taken Unknown] food supplemt, lactose-reduced 0.06 gram-1 kcal/mL oral liquid (Boost High Protein) 120 ml PO BIDCM 05/09/23 [History Last Taken Unknown] melatonin 3 mg tablet 3 mg PO QHS PRN sleep 05/09/23 [History Last Taken Unknown] metoprolol succinate 50 mg tablet,extended release 24 hr 50 mg PO BID BLOOD PRESSURE 05/09/23 [History Last Taken Unknown] mirtazapine 15 mg tablet 15 mg PO QHS 05/09/23 [History Last Taken Unknown] naloxone 4 mg/actuation nasal spray 4 mg intranasal Q3M PRN opioid overdose 05/09/23 [History Last Taken Unknown] nystatin 100,000 unit/gram topical powder 1 applic topical BID SKIN IRRITATION 05/09/23 [History Last Taken Unknown] oxycodone 5 mg tablet 5 - 10 mg PO Q4H PRN Pain Score 4-6 05/09/23 [History Last Taken Unknown] potassium chloride 20 mEq/15 mL oral liquid 20 meq PO DAILY 05/09/23 [History Last Taken Unknown] ranolazine 500 mg tablet,extended release,12 hr 500 mg PO BID HEART DISEASE 05/09/23 [History Last Taken Unknown] scopolamine base 1 mg over 3 days transdermal patch 1 patch transdermal Q3D PRN nausea and vomiting 05/09/23 [History Last Taken Unknown] sennosides 8.6 mg-docusate sodium 50 mg tablet (Senna with Docusate Sodium) 1 tab-cap PO BID 05/09/23 [History Last Taken Unknown] zinc oxide 20 % topical ointment 1 applic topical BID 05/09/23 [History Last Taken Unknown] Allergy/AdvReac Type Severity Reaction Status Date / Time bee venom protein (honey bee) Allergy Hives Verified 05/09/23 15:12 amlodipine AdvReac Severe severe Verified 05/09/23 15:12 swelling in hands and feet ceftriaxone AdvReac Nausea/Vom/ Verified 05/09/23 21:31 Diarrhea spider venom AdvReac Other Verified 05/09/23 15:12 Family History Father Heart disease Diabetes CAD (coronary artery disease) History of coronary artery bypass surgery Cardiac pacemaker in situ Pure hypercholesterolemia Surgical History H/O umbilical hernia repair History of cystoscopy History of inguinal hernia repair, bilateral History of knee surgery History of total right knee replacement Social History (Updated 05/09/23 @ 18:[address] Noa Leyva DO) housing: retirement Smoking Status: Former smoker how long ago did patient quit smokin alcohol intake: never substance use type: does not use caffeine: Yes Type: tea Number of servings: 2 ROS ROS Narrative 10 systems were reviewed with pertinent positives as noted in the HPI above. Physical Exam Const alert and no apparent distress Constitutional Narrative: Obese. Resting comfortably in bed. General Appearance: cooperative HEENT normocephalic and head/scalp atraumatic Eyes PERRL, EOMs intact bilaterally and conjunctivae normal Neck supple General: trachea midline Chest inspection of chest normal Resp normal respiratory effort Auscultation: Negative for rales, rhonchi or wheezes Cardio regular rate and regular rhythm GI normal to inspection, nondistended, normoactive bowel sounds Extremity no clubbing, cyanosis or edema Skin no rashes or lesions noted Neuro CN's II-XII intact bilaterally and no focal motor deficits Psych Mood & Affect: flat affect Lab / Micro Data 05/11/23 03:55 05/11/23 03:55 Labs: Laboratory Results - last 24 hr 05/09/23 15:20: WBC 13.5 H, RBC 3.74 L, Hgb 10.9 L, Hct 35.6 L, MCV 95.2 H, MCH 29.1, MCHC 30.6 L, RDW Std Deviation 57.1 H, RDW Coeff of Abdiel 16.3 H, Plt Count 450, MPV 9.7, Immature Gran % (Auto) 0.700, Neut % (Auto) 87.5 H, Lymph % (Auto) 4.1 L, [place] % (Auto) 7.3, Eos % (Auto) 0.1, Baso % (Auto) 0.3, Absolute Neuts (auto) 11.9 H, Absolute Lymphs (auto) 0.55 L, Nucleated RBC % 0, PT 19.8 H, INR 1.7, APTT 40.4 H, Sodium 135 L, Potassium 4.4, Chloride 102, Carbon Dioxide 25.0, Anion Gap 8, BUN 18, Creatinine 1.90 H, Estim Creat Clear Calc 48.15, Est GFR (MDRD) Af Amer 45 L, Est GFR (MDRD) Non-Af 37 L, BUN/Creatinine Ratio 9.5 L, Glucose 133 H, Calcium 10.0, Total Bilirubin 0.50, AST 22, ALT 9 L, Alkaline Phosphatase 130 H, Troponin I High Sens 27, Total Protein 8.1, Albumin 2.8 L, Globulin 5.3 H, Albumin/Globulin Ratio 0.5 L 05/09/23 15:45: Lactic Acid 3.7 H* 05/09/23 16:54: Urine Color Red, Urine Clarity Turbid, Urine pH 5.0, Ur Specific [place] 1.020, Urine Protein 500 H, Urine Glucose (UA) Normal, Urine Ketones 15 H, Urine Occult Blood 250 H, Urine Nitrite Negative, Urine Bilirubin 1 H, Urine Urobilinogen Normal, Ur Leukocyte Esterase 500 H, Urine RBC 25-50 SEEN, Urine WBC 25-50 SEEN, Ur Squamous Epith Cells 0 SEEN, Urine Bacteria 2+, Urine Mucus 0 SEEN 05/09/23 17:48: Total Creatine Kinase 34 L, Troponin I High Sens 22 05/09/23 20:32: Troponin I High Sens 18 05/09/23 20:48: Lactic Acid Cancelled 05/09/23 22:08: Lactic Acid 1.4, Troponin I High Sens 22 05/10/23 01:59: MRSA (PCR) Negative 05/10/23 02:02: Troponin I High Sens 19 05/10/23 03:54: WBC 8.1, RBC 2.95 L, Hgb 8.5 L, Hct 27.7 L, MCV 93.9, MCH 28.8, MCHC 30.7 L, RDW Std Deviation 55.2 H, RDW Coeff of Abdiel 16.3 H, Plt Count 312, MPV 9.5, Immature Gran % (Auto) 0.600, Neut % (Auto) 76.3 H, Lymph % (Auto) 8.6 L, [place] % (Auto) 10.9 H, Eos % (Auto) 3.1, Baso % (Auto) 0.5, Absolute Neuts (auto) 6.2, Absolute Lymphs (auto) 0.70 L, Nucleated RBC % 0, Sodium 141, Potassium 4.0, Chloride 112 H, Carbon Dioxide 22.0, Anion Gap 7, BUN 17, Creatinine 1.23, Estim Creat Clear Calc 71.09, Est GFR (MDRD) Af Amer 75, Est GFR (MDRD) Non-Af 62, BUN/Creatinine Ratio 13.8, Glucose 101, Calcium 9.0, Phosphorus 3.8, Magnesium 1.8 Micro: Microbiology 05/09/23 15:45 Mucosa - Nose SARS-CoV-2, Influenza & RSV (PCR) - Final Imaging Radiology Impression Chest X-Ray 05/09/23 15:55 IMPRESSION: No definite acute or significant abnormality seen. Electronically Signed: Rodrigo Wilhelm MD at 16:08 EST , Charges/Coding Visit Charges Inpatient E&M: 38840 Init Hosp L3
--- NOTE | 2023-05-10 06:58 | PCM.HOSP.N ---
Sepsis Attestation Sepsis Note Date exam was performed: 05/10/23 Time exam was performed: 12:09 Sepsis Attestation: Sepsis re-evaluation was performed Response to fluids: Fluid responsive hypotension
[2023-05-10] MEDS: Cefepime HCl 2 GM in 0.9% Normal Saline (100mL MB+) 100 ML IV ×3 (07:42→21:34)
[2023-05-10] MEDS: Folic Acid 1 MG Tablet PO (07:45)
[2023-05-10] MEDS: Sucralfate 1 GM Tablet PO ×3 (07:45→16:11)
--- NOTE | 2023-05-10 08:38 | PN.HOSP_ITS ---
Reason for Visit Reason for Visit: Diagnoses Sepsis, unspecified organism (05/09/23) Elevated white blood cell count, unspecified (05/09/23) Acidosis, unspecified (05/09/23) Acute kidney failure, unspecified (05/09/23) Chest pain, unspecified (05/09/23) Abnormal coagulation profile (05/09/23) Objective Data Objective Data Vital Signs: Vital Signs Temp Pulse Resp BP Pulse Ox O2 Del Method FiO2 97.6 F L 72 15 151/66 H 97 Room Air 21 05/10/23 07:00 05/10/23 07:00 05/10/23 07:00 05/10/23 07:00 05/10/23 07:40 05/10/23 08:30 05/10/23 04:03 Oxygen Delivery Method Room Air Weight: 264 lb 8.875 oz Body Mass Index (BMI) 39.2 Intake & Output: Intake and Output for Last 24 Hours 05/08/23 05/09/23 05/10/23 23:59 23:59 23:59 Intake Total 5740 / 5740 Output Total 270 / 270 325 / 325 Balance 5470 / 5470 -325 / -325 Lab / Micro Data 05/10/23 03:54 05/10/23 03:54 Labs: Laboratory Results - last 24 hr 05/09/23 15:20: WBC 13.5 H, RBC 3.74 L, Hgb 10.9 L, Hct 35.6 L, MCV 95.2 H, MCH 29.1, MCHC 30.6 L, RDW Std Deviation 57.1 H, RDW Coeff of Abdiel 16.3 H, Plt Count 450, MPV 9.7, Immature Gran % (Auto) 0.700, Neut % (Auto) 87.5 H, Lymph % (Auto) 4.1 L, [place] % (Auto) 7.3, Eos % (Auto) 0.1, Baso % (Auto) 0.3, Absolute Neuts (a uto) 11.9 H, Absolute Lymphs (auto) 0.55 L, Nucleated RBC % 0, PT 19.8 H, INR 1.7, APTT 40.4 H, Sodium 135 L, Potassium 4.4, Chloride 102, Carbon Dioxide 25.0, Anion Gap 8, BUN 18, Creatinine 1.90 H, Estim Creat Clear Calc 48.15, Est GFR (MDRD) Af Amer 45 L, Est GFR (MDRD) Non-Af 37 L, BUN/Creatin ine Ratio 9.5 L, Glucose 133 H, Calcium 10.0, Total Bilirubin 0.50, AST 22, ALT 9 L, Alkaline Phosphatase 130 H, Troponin I High Sens 27, Total Protein 8.1, Albumin 2.8 L, Globulin 5.3 H, Albumin/Globulin Ratio 0.5 L 05/09/23 15:45: Lactic Acid 3.7 H* 05/09/23 16:54: Urine Color Red, Urine Clarity Turbid, Urine pH 5.0, Ur Specific [place] 1.020, Urine Protein 500 H, Urine Glucose (UA) Normal, Urine Ketones 15 H, Urine Occult Blood 250 H, Urine Nitrite Negative, Urine Bilirubin 1 H, Urine Urobilinogen Normal, Ur Leukocyte Esterase 500 H, Urine RBC 25-50 SEEN, Urine WBC 25-50 SEEN, Ur Squamous Epith Cells 0 SEEN, Urine Bacteria 2+, Urine Mucus 0 SEEN 05/09/23 17:48: Total Creatine Kinase 34 L, Troponin I High Sens 22 05/09/23 20:32: Troponin I High Sens 18 05/09/23 20:48: Lactic Acid Cancelled 05/09/23 22:08: Lactic Acid 1.4, Troponin I High Sens 22 05/10/23 01:59: MRSA (PCR) Negative 05/10/23 02:02: Troponin I High Sens 19 05/10/23 03:54: WBC 8.1, RBC 2.95 L, Hgb 8.5 L, Hct 27.7 L, MCV 93.9, MCH 28.8, MCHC 30.7 L, RDW Std Deviation 55.2 H, RDW Coeff of Abdiel 16.3 H, Plt Count 312, MPV 9.5, Immature Gran % (Auto) 0.600, Neut % (Auto) 76.3 H, Lymph % (Auto) 8.6 L, [place] % (Auto) 10.9 H, Eos % (Auto) 3.1, Baso % (Auto) 0.5, Absolute Neuts (auto) 6.2, Absolute Lymphs (auto) 0.70 L, Nucleated RBC % 0, Sodium 141, Potassium 4.0, Chloride 112 H, Carbon Dioxide 22.0, Anion Gap 7, BUN 17, Creatinine 1.23, Estim Creat Clear Calc 71.09, Est GFR (MDRD) Af Amer 75, Est GFR (MDRD) Non-Af 62, BUN/Creatinine Ratio 13.8, Glucose 101, Calcium 9.0, Phosphorus 3.8, Magnesium 1.8 Micro: Microbiology 05/09/23 15:45 Mucosa - Nose SARS-CoV-2, Influenza & RSV (PCR) - Final Radiography Diagnostic Testing: Radiology Impression Chest X-Ray 05/09/23 15:55 IMPRESSION: No definite acute or significant abnormality seen. Electronically Signed: Rodrigo Wilhelm MD at 16:08 EST , Physical Exam Narrative Seen and examined. Patient stated he felt chills and cold but objective temperature was normal ED. Not on vasopressors Physical exam General: Alert, Oriented x3, Cooperative HEENT: Atraumatic, PERRLA, EOMI, Normocephalic Oral: Oral mucosa dry. No Gingival or Mucosal Lesions/ Ulcerations Neck: Supple, No JVD, Negative Carotid Bruits Chest wall/Lungs: Air entry diminished in bilateral lung bases. No crepitation/rhonchi Cardiovascular: A-fib, irregular rhythm, Normal S1, Normal S2, No M/G/R Abdomen: Bowel Sounds Present, Soft, Non Tender, Non-Distended : Adams catheter was removed. No dysuria. No renal angle tenderness. No suprapubic tenderness. Extremities: No edema, Capillary Refill Less than 3 Seconds Skin: No rashes, No breakdown Musculoskeletal: Weakness, chronic of lower extremities, 4/5 at hips and knee joints. Right TKR. Chronic mild tenderness present. Neurological: Cranial nerves II-XII grossly intact, DTR 2+/4. No acute focal neurological deficit. Psych/Mental Status: Flat affect. Assessment & Plan Assessment/Plan (1) Sepsis: (2) Lactic acidosis: (3) TEODORO (acute kidney injury): (4) Subtherapeutic international normalized ratio (INR): (5) Leukocytosis: (6) Chest pain: PLAN: Plan 72-year-old gentleman was admitted with chest discomfort around noon time from [facility] but it was felt that he has a chronic chest discomfort and is on Ranexa on home medication. He also had recent hospitalization in April for intractable back pain from epidural abscess from where he was discharged to SNF with Adams catheter. Adams catheter was removed yesterday. Patient is stated that he could not get warmth and was found hypotensive in the ED and clinical diagnosis of sepsis was made 1. Sepsis secondary to suspected urinary tract infection: Patient is admitted to ICU. -Patient has leukocytosis, lactic acidosis, TEODORO, hypotension--> meets criteria per SEP 1. Lactic acidosis 3.7. Repeat 1 normal. -Fluid boluses given at 30 cc/kg body weight due to hypotension--> total of 4 L -Patient did not require pressors. Fluid responsive hypotension. -Blood and urine cultures were obtained the emergency department -Continue cefepime and vancomycin due to frequent hospitalizations and instrumentation -ID has been consulted Chest pain -Patient does have a history of coronary disease -Initial troponin was unremarkable at 27 with repeat pending -EKG shows chronic atrial fibrillation without any ST-T wave changes concerning for acute ischemia -Patient is on Ranexa at home so we will continue TEODORO -Suspect related to decreased perfusion from hypotension however patient did just have Adams removed -Bladder scan as needed -IV fluids as noted above -Keep maps greater than 65 Hypotension -Secondary to the above -Baseline appears to run in the 140s to 150s systolic -89 on presentation -Fluid boluses as above -Hold home antihypertensives Recent epidural abscess/osteomyelitis of lumbar spine -Patient has completed oral antibiotics however it does appear he is still on amoxicillin despite him telling me his completed antibiotics -Continue home amoxicillin--> cefepime should cover but I do not want to get this lost if cefepime discontinued depending on culture results -Not currently having any back pain -Monitor clinically with low threshold for imaging if back pain develops LILI -Continue home CPAP CAD/HTN/HPL - reports he had a stent in February -Continue Plavix and Coumadin -Continue high-dose atorvastatin -Hold antihypertensives due to hypotension on presentation -Continue home Ranexa GERD with history of GI bleed -Continue twice daily PPI -Continue Carafate Chronic atrial fibrillation -Patient is in rate controlled A-fib at this time -Hold metoprolol for now due to hypotension but low threshold to reinitiate if blood pressure stabilizes to avoid tachycardia -Warfarin dose increased to 5 mg daily. Patient not get warfarin yesterday therefore give 1 now follow INR BPH with obstruction -Patient had urinary retention postoperatively and had Adams removed after about 4 weeks today at [facility]. -Follow for urine output -Continue home Flomax -Bladder scan as needed Polyarthritis -Continue home hydroxychloroquine Depression -Continue home citalopram Debility -PT/OT consultation -Patient will need to be discharged back to skilled facility once medically sta bilized Morbid obesity -BMI is 42.1 -Recommend weight loss -Complicates treatment, prognosis, outcomes DVT prophylaxis -INR is subtherapeutic at 1.7 -Will give subcu heparin 3 times daily until INR is therapeutic CODE STATUS Full code Charges/Coding Visit Charges Inpatient E&M: 05162 [facility] Hosp L3
[2023-05-10] MEDS: Vancomycin IV 1,000 MG/200 ML BAG 200 MG IV ×2 (09:11→20:03)
[2023-05-10] MEDS: Pantoprazole Sodium 40 MG Tablet PO ×2 (09:14→20:04)
[2023-05-10] MEDS: Citalopram 20 MG Tablet PO (09:14)
[2023-05-10] MEDS: Miconazole Nitrate 43 GM Bottle 1 APPLIC TOPICAL (09:14)
[2023-05-10] MEDS: Ranolazine 500 MG Tablet PO (09:14)
[2023-05-10] MEDS: Senna/Docusate Sodium 1 Tablet PO ×2 (09:14→20:06)
[2023-05-10] MEDS: Hydroxychloroquine 200 MG Tablet PO (09:14)
[2023-05-10] MEDS: Tamsulosin HCl 0.4 MG Capsule PO (09:14)
[2023-05-10] MEDS: Clopidogrel Bisulfate 75 MG Tablet PO (09:15)
[2023-05-10] MEDS: Zinc Oxide 30gm Tube 1 APPLIC TOPICAL ×2 (09:15→20:06)
--- NOTE | 2023-05-10 09:58 | CASEMGMT ---
Social Work SW met w/pt in room in regard to discharge plan. Pt confirms has been at [facility] for one month, he went there from [facility] after back surgery. His plan is to return to [facility] at discharge, SNF list not needed at this time. D/C funeral planning counselor Jayne will send updates today. SW will continue to follow. MARTINEZ Gonzalez
--- NOTE | 2023-05-10 10:01 | CASEMGMT ---
Social Work Pt confirms is Healthcare POA. SW asked him to have bring in the documents as able, he states will do so. MARTINEZ Gonzalez
--- NOTE | 2023-05-10 10:45 | CASEMGMT ---
Discharge Planning Updates [facility]. Jayne Henry, Discharge Planning Asst.
--- NOTE | 2023-05-10 14:00 | RAD_ITS ---
INDICATION: picc confirmation EXAMINATION/TECHNIQUE: X-RAY - XR Chest 1 View COMPARISON: Prior study dated: 05/09/2023 FINDINGS: LINES/DEVICES: Right-sided PICC line with its tip in the cavoatrial junction region. LUNGS: No consolidation, edema or effusion. No pneumothorax. MEDIASTINUM AND CARDIOVASCULAR STRUCTURES: Cardiac silhouette not enlarged. Central airways and mediastinal contour are unremarkable. BONES AND SOFT TISSUES: Stable soft tissues and osseous structures. RAD/CXR for Line Placement IMPRESSION: Right-sided PICC line with its tip in the cavoatrial junction region. Electronically Signed: Jeovany Rosas MD at 14:11 EST ,
[2023-05-10] MEDS: 0.9 % NaCl (Sterile) Posiflush 10 mL IV (14:19)
--- NOTE | 2023-05-10 14:23 | PCM.OP.PRO ---
Procedure Report Date of Procedure: 05/10/23 Assessment & Plan Assessment/Plan (1) Sepsis: QUALIFIERS: Sepsis type: sepsis due to unspecified organism Sepsis acute organ dysfunction status: unspecified Qualified Code(s): A41.9 - Sepsis, unspecified organism Procedures Radiology Radiology Access Procedures: PICC Procedure Time Out Time Out Informed consent given: Yes Consent signed: Yes Time out checklist: patient, procedure, site marked/identified, positioning of patient, supplies available and allergies confirmed Time out verified: Yes Time out date: 05/10/23 Time out time: 12:10 PICC Line Consent Screening tool completed:: Yes Consent obtained:: Yes Consent given by (patient or responsible libertarian):: PATIENT Line successful (if no, document why in comments):: Yes Insertion Reason for Insertion: Poor Venous Access Date of Insertion: 05/10/23 Ok to use: Yes Type of PICC inserted: Dual Power PICC PICC Lot #: [id number] PICC Reference #: [id number] Microintroducer Used: Yes (in kit) Ultrasound/Equipment Used: Probe Cover Kit Trimmed Length (cm): 52 Insertion Length (cm): 49 Exposed Length (cm): 3 Tip Placement: Caval Atrial Junction Placement Confirmation: Xray Insertion Vein: Right Brachial Insertion Attempts: 1 Local Anesthesia Used: Lidocaine 1% (in kit) Dressing Applied: Statlock and Tegaderm CHG Arm Measurement above site (in cm): 37 Patient Tolerated Procedure: Well Threading Difficulties: Yes Comments Comment: Patient identity was verified with two patient identifiers. Informed consent was obtained and time-out was completed. Hands were sanitized. The patient was positioned supine with right arm at 90 degrees. The patient's upper arm vasculature was assessed using ultrasound. Patency of the right brachial vein was confirmed and the vein was externally marked. An external measurement was obtained of 52 cm. External leads were applied to the patient's right upper chest and laterally and inferior of the umbilicus on the mid axillary line. Cap, mask, and prep gloves were donned. The underdrape was placed under the patient's arm. The site was prepped with chlorhexidine, and tourniquet was loosely applied. Prep gloves were discarded, and hands were sanitized. The sterile kit was opened with additional supplies dropped in. Sterile gown and gloves were donned, and the patient was draped. The sterile kit was assembled with needle, introducer, needless connectors, and each catheter lumen flushed with sterile normal saline. The marked site of insertion was anesthetized with 1% lidocaine from the kit. Patient tolerated well. The right brachial vein was then accessed using ultrasound guidance and guidewire was inserted to safety fabio. The tourniquet was released. The access needle was removed while securing the guidewire in place. The site was again anesthetized with 1% lidocaine, prior to insertion of introducer sheath and dilator. Patient tolerated the insertion well. The catheter was trimmed to a length of 52 cm. Using 3C guidance, the catheter was then inserted through the introducer sheath, slowly. There was resistance on insertion at the depth of the shoulder, but with right upper extremity repositioning and flushing the catheter advanced. The catheter followed the expected course of the vessel using 3CG tracking. The introducer sheath was retracted and peeled away, incrementally, while keeping the catheter secured. Maximal p-wave, without deflection, confirming placement in the cavoatrial junction, was unable to be obtained using the 3 CG technology. So the catheter was inserted to the predetermined depth of 52 cm, leaving 0 cm external.. The stylet was removed. A flushed needleless connector was attached to the lumen. Aspiration of the lumen was performed to remove any air and confirm blood return. Blood return was verified and each lumen was flushed with 10 ml of sterile normal saline in a pulsatile fashion. The each lumen was clamped with the last pulsed flush. Total sterile flushes used for the insertion was 8 10 ml syringes, 2 from the kit. Finally, the insertion site was cleaned with chlorhexidine, and the catheter was secured using a StatLock. The site was covered with a Tegaderm CHG Dressing and disinfecting caps were applied. Baseline arm circumference was obtained at the insertion site and measured 37 cm. A chest x-ray was obtained to verify placement within the cavoatrial junction. While waiting for the x-ray, the patient had a short run of V. tach. Bedside interpretation of the chest x-ray by myself, revealed the catheter to be well within the cavoatrial junction. So using sterile technique, the original dressing was removed, the catheter was withdrawn 3 cm, and a sterile dressing was reapplied. The patient was provided with a patient education handout on PICC line care and verbalized understanding of infection prevention, heavy lifting restriction, maintaining mobility, and watching for any signs of infection. The primary nurse is aware that the PICC line is ready for use. Radiologist interpretation of the chest x-ray also confirmed placement within the cavoatrial junction.
[2023-05-10 15:16] LABS: International Normalized Ratio 1.8; Prothrombin Time (Protime)PT. 20.8 SECONDS (11.7-14.9)
[2023-05-10] MEDS: Mirtazapine 15 MG Tablet PO (20:05)
--- NOTE | 2023-05-10 21:42 | NURSING ---
1952- dysphagia swallow screen performed bedside. Pt states he occasionally throws up while taking pills because the pills stick to his throat. Bedside swallow passed. This RN did not observe any difficulty swallowing, no coughing or choking visualized. Pt did not have any issue w/ taking pills the previous night for this RN but according to dayshift RN had trouble this am. Because pt passed dysphagia screen, this RN agreeable to pass pills, pt requesting meds. Meds given one at a time w/ in a sitting position. This RN did not observe any choking or difficulty swallowing. Partially through med pass, pt states he feels like a pill is sticking to his throat, pt became to vomit at this time. 150 cc of emesis out, pt refused rest of meds, speech consult in.
[2023-05-11] VITALS (8 sets, daily range): BP systolic 112–159; BP diastolic 75–94; PULSE 72–94; RESP 12–17; TEMP 36.1–36.3; O2SAT 96–98; BMI 38.7
[2023-05-11 04:06] LABS: Absolute Lymphocyte Count 0.56 X10^3/uL (0.83-4.51); Absolute Neutrophil Count 5.2 X10^3/uL (2.0-7.7); Basophil# 0.03 X10^3/uL; Basophil% 0.4 % (0-1); Eosinophil# 0.11 X10^3/uL; Eosinophils% 1.6 % (0-5); Hematocrit 27.7 % (40-54); Hemoglobin 8.4 g/dL (13.0-16.5); Lymphocyte # 0.56 X10^3/ul (0.83-4.51); Lymphocyte % 8.1 % (19-41); Mean Corp Hgb Conc 30.3 g/dL (32-36); Mean Corpuscular Hgb 28.7 pg (27.0-32.0); Mean Corpuscular Volume 94.5 fL (80-94); Mean Platelet Vol. 9.6 fl (6.2-12.0); Monocyte# 1.03 X10^3/uL; Monocyte% 14.8 % (0-10); NRBC Flagged by Analyzer 0 % (0-5); Neutrophil # 5.19 X10^3/uL (2.7-7.7); Neutrophil % 74.7 % (47-70); POSITIVE DIFFERENTIAL YES; Platelet Count 273 K/mm3 (150-450); RBC Distribution Width CV 15.8 % (11.6-14.6); RBC Distribution Width SD 54.7 fl (35.1-43.9); Red Blood Count 2.93 M/mm3 (4.6-6.2)
[2023-05-11 04:19] LABS: International Normalized Ratio 1.9
[2023-05-11 04:27] LABS: Anion Gap 6 (5-15); BUN 12 mg/dL (7-18); BUN/Creat Ratio 10.6 RATIO (10-20); Calcium,Total 9.2 mg/dL (8.5-10.1); Chloride 111 mmol/L (98-107); Creatinine, Serum 1.13 mg/dL (0.70-1.30); EST Glomerular Filtration Rate 68 mL/min (>60); Est Glom Filt Rate - Afr Amer 82 mL/min (>60); Estimated Creatinine Clearance 77.38 ml/min; Glucose 96 mg/dL (74-106); Potassium 3.4 mmol/L (3.5-5.1); Sodium Level 141 mmol/L (136-145)
[2023-05-11] MEDS: Cefepime HCl 2 GM in 0.9% Normal Saline (100mL MB+) 100 ML IV ×3 (05:08→20:34)
[2023-05-11] MEDS: 0.9% Saline Lock 10 ML Syringe IV ×2 (05:09→14:35)
[2023-05-11] MEDS: Heparin Injection (Vial) 5,000 UNIT/ML VIAL 5000 UNIT SC ×3 (05:09→20:35)
--- NOTE | 2023-05-11 08:57 | CASEMGMT ---
Addendum entered by Rosie Rose 05/11/23 15:02: Social Work Pt will not be discharged today. SW placed green sheet on the chart in event pt is ready for discharge back to [facility] on the weekend. MARTINEZ Gonzalez Addendum entered by Rosie Rose 05/11/23 13:58: Social Work SW spoke w/the ID physician, pt will not need IV antibiotics at discharge. Therapy evaluations are all documented, SW sent updates to [facility]. At this time now it appears physician may dishcarge pt, SW updated [facility] via [facility]. MARTINEZ Gonzalez Original Note: Social Work Updates sent to [facility] via [facility]. It does not appear that pt will be ready for d/c today, SW will continue to follow. MARTINEZ Gonzalez
[2023-05-11] MEDS: Citalopram 20 MG Tablet PO (09:06)
[2023-05-11] MEDS: Hydroxychloroquine 200 MG Tablet PO (09:06)
[2023-05-11] MEDS: Tamsulosin HCl 0.4 MG Capsule PO (09:07)
[2023-05-11] MEDS: Miconazole Nitrate 43 GM Bottle 1 APPLIC TOPICAL (09:07)
[2023-05-11] MEDS: Zinc Oxide 30gm Tube 1 APPLIC TOPICAL ×2 (09:08→22:45)
[2023-05-11] MEDS: Pantoprazole Sodium 40 MG Tablet PO ×2 (09:26→20:35)
[2023-05-11] MEDS: Ranolazine 500 MG Tablet PO (09:27)
--- NOTE | 2023-05-11 10:08 | NURSING ---
Speech Therapy came to see pt and recommended soft bite sized food with thin liquids and MEds whole w/applesauce. This RN gave Flomax, Celexa and then pt c/o the Flomax was stuck in his throat. Small sips of water and small bites of applesauce given x3. Pt stated he thought the pill was not stuck anymore. This Pt gave pt his next pill which was plavix and pt then threw up 250cc of watery applesauce. This RN did not see any pills. This RN then crushed the rest of his meds except for Ranexa which can not be crushed. Mixed in applesauce and pt was able to tolerate.
[2023-05-11] MEDS: Potassium Chloride Oral Tablet 20 MEQ 40 MEQ PO (11:58)
[2023-05-11] MEDS: Bisacodyl 5 MG Tablet 10 MG PO (11:59)
--- NOTE | 2023-05-11 11:59 | TREXTCAR_ITS ---
Diet Diet Order/Speech Therapy: 05/10/23 10:05 Diet: Regular - General Food consistency:: Soft & Bite Sized Liquid Consistency:: Regular/Thin Type of Dietary Supplement:: Ensure Compact Is pt able to select menu?: Yes Diet Comments: meds whole in , van ESC w/ breakfast and dinner Routine Orders/Code Status Suppository Type: Dulcolax 10mg Suppository Frequency: Daily PRN Routine Lab Work: INR (Every day at least for next 4 days until he completes ciprofloxacin and adjust warfarin accordingly.) Code Status: Full Code Wound(s) Right Salazar: Wound Type: scab Back: Wound Type: Surgical Incision 2nd Rt toe: Wound Type: scab Therapies Weight Bearing: Weight bearing as tolerated Extremity Affected:: Bilateral Lower Physical Therapy: Eval and Treat Occupational Therapy: Eval and Treat Speech Therapy: Eval and Treat Problem/Diagnosis (1) Sepsis: Status: Acute Code(s): A41.9 - Sepsis, unspecified organism (2) TEODORO (acute kidney injury): Status: Acute Code(s): N17.9 - Acute kidney failure, unspecified (3) Chest pain: Status: Acute Code(s): R07.9 - Chest pain, unspecified Plan 72-year-old gentleman was admitted with chest discomfort around noon time from [facility] but it was felt that he has a chronic chest discomfort and is on Ranexa on home medication. He also had recent hospitalization in April for intractable back pain from epidural abscess from where he was discharged to SNF with Adams catheter. Adams catheter was removed yesterday. Patient is stated that he could not get warmth and was found hypotensive in the ED and clinical diagnosis of sepsis was made 1. Sepsis secondary to suspected urinary tract infection: Patient is admitted to ICU. -Patient has leukocytosis, lactic acidosis, TEODORO, hypotension--> meets criteria per SEP 1. Lactic acidosis 3.7. Repeat 1 normal. -Fluid boluses given at 30 cc/kg body weight due to hypotension--> total of 4 L -Patient did not require pressors. Fluid responsive hypotension. -Blood and urine cultures were obtained the emergency department -Continue cefepime and vancomycin due to frequent hospitalizations and instrumentation -ID has been consulted 05/10: Urine culture shows Pseudomonas aeruginosa more than 1000 colonies, resistant to piperacillin/tazobactam. Patient on IV cefepime ID consult requested. Discontinue vancomycin. It is sensitive to Cipro and Levaquin. Patient has right arm PICC line. Chest pain -Patient does have a history of coronary disease -Initial troponin was unremarkable at 27 with repeat pending -EKG shows chronic atrial fibrillation without any ST-T wave changes concerning for acute ischemia -Patient is on Ranexa at home so we will continue 05/10: With 3 serial troponins negative, ACS ruled out. TEODORO -Suspect related to decreased perfusion from hypotension however patient did just have Adams removed -Bladder scan as needed -IV fluids as noted above -Keep maps greater than 65 05/10: BUNs/creatinine 12/.13. Hypotension -Secondary to the above -Baseline appears to run in the 140s to 150s systolic -89 on presentation -Fluid boluses as above -Hold home antihypertensives Recent epidural abscess/osteomyelitis of lumbar spine -Patient has completed oral antibiotics however it does appear he is still on amoxicillin despite him telling me his completed antibiotics -Continue home amoxicillin--> cefepime should cover but I do not want to get this lost if cefepime discontinued depending on culture results -Not currently having any back pain -Monitor clinically with low threshold for imaging if back pain develops LILI -Continue home CPAP CAD/HTN/HPL - reports he had a stent in February -Continue Plavix and Coumadin -Continue high-dose atorvastatin -Hold antihypertensives due to hypotension on presentation -Continue home Ranexa GERD with history of GI bleed -Continue twice daily PPI -Continue Carafate Chronic atrial fibrillation -Patient is in rate controlled A-fib at this time -Hold metoprolol for now due to hypotension but low threshold to reinitiate if blood pressure stabilizes to avoid tachycardia -Warfarin dose increased to 5 mg daily. Patient not get warfarin yesterday therefore give 1 now follow INR BPH with obstruction -Patient had urinary retention postoperatively and had Adams removed after about 4 weeks today at [facility]. -Follow for urine output -Continue home Flomax -Bladder scan as needed Polyarthritis -Continue home hydroxychloroquine Depression -Continue home citalopram Debility -PT/OT consultation -Patient will need to be discharged back to skilled facility once medically stabilized Morbid obesity -BMI is 42.1 -Recommend weight loss -Complicates treatment, prognosis, outcomes DVT prophylaxis -INR is subtherapeutic at 1.7 -Will give subcu heparin 3 times daily until INR is therapeutic 05/10: INR increased to 1.9. Warfarin was increased to 5 mg on 05/10. CODE STATUS Full code Microbiology Past 72 Hours 05/09/23 16:54 Urine Catheter - Catheter Urine Culture - Final Pseudomonas aeruginosa 05/09/23 15:45 Mucosa - Nose SARS-CoV-2, Influenza & RSV (PCR) - Final Laboratory Results 05/11/23 03:55: WBC 7.0, RBC 2.93 L, Hgb 8.4 L, Hct 27.7 L, MCV 94.5 H, MCH 28.7, MCHC 30.3 L, RDW Std Deviation 54.7 H, RDW Coeff of Abdiel 15.8 H, Plt Count 273, MPV 9.6, Immature Gran % (Auto) 0.400, Neut % (Auto) 74.7 H, Lymph % (Auto) 8.1 L, [place] % (Auto) 14.8 H, Eos % (Auto) 1.6, Baso % (Auto) 0.4, Absolute Neuts (auto) 5.2, Absolute Lymphs (auto) 0.56 L, Nucleated RBC % 0, PT 22.0 H, INR 1.9, Sodium 141, Potassium 3.4 L, Chloride 111 H, Carbon Dioxide 24.0, Anion Gap 6, BUN 12, Creatinine 1.13, Estim Creat Clear Calc 77.38, Est GFR (MDRD) Af Amer 82, Est GFR (MDRD) Non-Af 68, BUN/Creatinine Ratio 10.6, Glucose 96, Calcium 9.2 Allergies/Procedures Done in Hospital Allergies bee venom protein (honey bee) Allergy (Verified 05/09/23 15:12) Hives amlodipine Adverse Reaction (Severe, Verified 05/09/23 15:12) severe swelling in hands and feet ceftriaxone Adverse Reaction (Verified 05/09/23 21:31) Nausea/Vom/Diarrhea severe nausea and vomiting spider venom Adverse Reaction (Verified 05/09/23 15:12) Other Type of Care/Length of Stay Estimated LOS: Convalescent Care Less Than 30 days Type of Care Needed: Skilled Rehab Potential: Good Prognosis: Good Additional Orders/Day of Discharge Day of Discharge: 05/11/23 Dietary and Speech Recommendations Dietitian Recommendations/Changes: will adjust diet to regular and add ensure compact BID w/ meals; INSTANT PRINTER OPERATOR consult, texture/consistency modifications per INSTANT PRINTER OPERATOR as needed. Discharge Plan Admission Admit Date/Time: 05/09/23 18:05 Primary Reason for Your Visit: Pseudomonas UTI related sepsis Attending Provider: Wild Martinez Primary Care Provider: Bryce Zamarripa Consulting Providers: Noa Leyva; Merritt Soares Discharge Orders/Prescriptions Prescriptions: New warfarin [Jantoven] 5 mg Tablet 5 mg PO DINNER Qty: 0 0RF Rx Instructions: Keep INR between 2-3 about 2.5. ciprofloxacin HCl [Cipro] 500 mg tablet 500 mg PO BID 4 Days Qty: 8 0RF Continued hydroxychloroquine 200 mg tablet 200 mg PO BID (DME) Handicap Placard See Rx Instructions .Route .MEDSUPPLY Qty: 1 0RF Rx Instructions: Good from 07/05/2021-07/05/2026; citalopram 20 MG tablet 20 mg PO DAILY tamsulosin 0.4 MG capsule 0.4 mg PO DAILY isosorbide mononitrate 60 mg tablet extended release 24 hr 60 mg PO BID nitroglycerin 0.4 mg tablet, sublingual 0.4 mg sublingual Q5M PRN (Reason: chest pain) clopidogrel 75 mg tablet 75 mg PO DAILY folic acid 1 mg tablet 1 mg PO DAILY ondansetron HCl 4 mg tablet 4 mg PO Q4H PRN pantoprazole 40 mg tablet,delayed release (DR/EC) 40 mg PO Q12H sucralfate 1 gram tablet 1 g PO 4X/DAY potassium chloride 20 mEq/15 mL liquid 20 meq PO DAILY scopolamine base 1 mg over 3 days patch 3 day 1 patch transdermal Q3D PRN (Reason: nausea and vomiting) alum-mag hydroxide-simeth [Advanced Antacid-Antigas] 200-200-20 mg/5 mL suspension 30 ml PO DAILY PRN (Reason: GERD) melatonin 3 mg tablet 3 mg PO QHS PRN (Reason: sleep) metoprolol succinate 50 mg tablet extended release 24 hr 50 mg PO BID atorvastatin 80 mg tablet 80 mg PO QHS mirtazapine 15 mg tablet 15 mg PO QHS naloxone 4 mg/actuation spray,non-aerosol 4 mg intranasal Q3M PRN (Reason: opioid overdose) Rx Instructions: spray 1 dose into ONE nostril; alternate nostrils w each dose until help arrives nystatin 100,000 unit/gram powder 1 applic topical BID Rx Instructions: APPLY TO AFFECTED AREAS TWICE DAILY ranolazine 500 mg tablet extended release 12 hr 500 mg PO BID sennosides-docusate sodium [Senna with Docusate Sodium] 8.6-50 mg tablet 1 tab-cap PO BID zinc oxide 20 % ointment 1 applic topical BID acetaminophen 500 mg tablet 1,000 mg PO BID amoxicillin 875 mg tablet 875 mg PO Q12H Boost High Protein 0.06 gram- 1 kcal/mL liquid 120 ml PO BIDCM oxycodone 5 mg Tablet 5 - 10 mg PO Q4H PRN (Reason: Pain Score 4-6) Changed cyclobenzaprine 10 mg tablet 10 mg PO Q8H PRN (Reason: pain) 30 Days Qty: 0 0RF Held losartan 50 mg tablet 50 mg PO DAILY Hold Instructions: Hold for 4 days. Hold for SBP less than 130 mmHg Discontinued warfarin 4 mg tablet 4 mg PO QHS Protocol: Dose Management Condition: Sunday Dose/Route: 4 mg Instruction: 1 x 4 mg tablet Condition: Sunday Dose/Route: 8 mg Instruction: 2 x 4 mg tablets Condition: Sunday Dose/Route: 8 mg Instruction: 2 x 4 mg tablets Condition: Sunday Dose/Route: 8 mg Instruction: 2 x 4 mg tablets Condition: Dose/Route: 8 mg Instruction: 2 x 4 mg tablets Condition: Sunday Dose/Route: 8 mg Instruction: 2 x 4 mg tablets Condition: Sunday Dose/Route: 4 mg Instruction: 1 x 4 mg tablet Protocol Text: Adjustment Start Date: Sunday02/12/23 INR Value: 1.6 INR Date: 02/12/23 Recheck Date: 02/19/23 Referrals / Follow Up: Bryce Zamarripa MD [Primary Care Provider] - Cornell Gunter MD [Med Staff - Active Staff] - Disposition Disposition (needs filled in before D/C Order can be placed): Longterm Facility (1) Sepsis Qualifiers: Sepsis acute organ dysfunction status: unspecified Sepsis type: sepsis due to unspecified organism Qualified Code(s): A41.9 - Sepsis, unspecified organism
--- NOTE | 2023-05-11 12:10 | DS.PCM_ITS ---
Providers Date of Admission: 05/09/23 Date of Discharge: 05/11/23 Primary Care Physician: Dr. Bryce Zamarripa MD Consultations 05/09/23 18:59 Consult: Brim Curler / Pulmonary Medicine Routine Consulting Provider: Intensivists/Pulmonary Med Reason for Consult: sepsis EMERGENT Consult: No Notified: Yes Date Notified: 05/09/23 Time Notified: 18:07 Method of Notification: Verbal 05/11/23 07:33 Consult: Infectious Disease Routine Consulting Provider: Merritt Soares Reason for Consult: Pseudomonas resisitant to zosyn EMERGENT Consult: No Notified: Yes Date Notified: 05/11/23 Time Notified: 07:34 Method of Notification: Text Reason For Visit: SEPSIS 2/2 TO UTI Diagnosis Discharge Diagnosis (1) Sepsis: Status: Acute Code(s): A41.9 - Sepsis, unspecified organism Qualifiers: Sepsis acute organ dysfunction status: unspecified Sepsis type: sepsis due to unspecified organism Qualified Code(s): A41.9 - Sepsis, unspecified organism (2) TEODORO (acute kidney injury): Status: Acute Code(s): N17.9 - Acute kidney failure, unspecified (3) Chest pain: Status: Acute Code(s): R07.9 - Chest pain, unspecified Plan 72-year-old gentleman was admitted with chest discomfort around noon time from [facility] but it was felt that he has a chronic chest discomfort and is on Ranexa on home medication. He also had recent hospitalization in April for intractable back pain from epidural abscess from where he was discharged to SNF with Adams catheter. Adams catheter was removed yesterday. Patient is stated that he could not get warmth and was found hypotensive in the ED and clinical diagnosis of sepsis was made 1. Sepsis secondary to suspected urinary tract infection: Patient is admitted to ICU. -Patient has leukocytosis, lactic acidosis, TEODORO, hypotension--> meets criteria per SEP 1. Lactic acidosis 3.7. Repeat 1 normal. -Fluid boluses given at 30 cc/kg body weight due to hypotension--> total of 4 L -Patient did not require pressors. Fluid responsive hypotension. -Blood and urine cultures were obtained the emergency department -Continue cefepime and vancomycin due to frequent hospitalizations and i nstrumentation -ID has been consulted 05/10: Urine culture shows Pseudomonas aeruginosa more than 1000 colonies, resistant to piperacillin/tazobactam. Patient on IV cefepime ID consult requested. Discontinue vancomycin. It is sensitive to Cipro and Levaquin. Patient has right arm PICC line.Discontinue PICC line. Patient evaluated by ID. Patient is discharged on ciprofloxacin for 4 more days. Continue amoxicillin. Chest pain -Patient does have a history of coronary disease -Initial troponin was unremarkable at 27 with repeat pending -EKG shows chronic atrial fibrillation without any ST-T wave changes concerning for acute ischemia -Patient is on Ranexa at home so we will continue 05/10: With 3 serial troponins negative, ACS ruled out. TEODORO -Suspect related to decreased perfusion from hypotension however patient did just have Adams removed -Bladder scan as needed -IV fluids as noted above -Keep maps greater than 65 05/10: BUNs/creatinine 12.13. TEODORO resolved. Hypotension -Secondary to the above -Baseline appears to run in the 140s to 150s systolic -89 on presentation -Fluid boluses as above -Hold home antihypertensives Recent epidural abscess/osteomyelitis of lumbar spine -Patient has completed oral antibiotics however it does appear he is still on amoxicillin despite him telling me his completed antibiotics -Continue home amoxicillin--> cefepime should cover but I do not want to get this lost if cefepime discontinued depending on culture results -Not currently having any back pain -Monitor clinically with low threshold for imaging if back pain develops LILI -Continue home CPAP CAD/HTN/HPL - reports he had a stent in February -Continue Plavix and Coumadin -Continue high-dose atorvastatin -Hold antihypertensives due to hypotension on presentation -Continue home Ranexa GERD with history of GI bleed -Continue twice daily PPI -Continue Carafate Chronic atrial fibrillation -Patient is in rate controlled A-fib at this time -Hold metoprolol for now due to hypotension but low threshold to reinitiate if blood pressure stabilizes to avoid tachycardia -Warfarin dose increased to 5 mg daily. Patient not get warfarin yesterday therefore give 1 now follow INR BPH with obstruction -Patient had urinary retention postoperatively and had Adams removed after about 4 weeks today at [facility]. -Follow for urine output -Continue home Flomax -Bladder scan as needed Polyarthritis -Continue home hydroxychloroquine Depression -Continue home citalopram Debility -PT/OT consultation -Patient will need to be discharged back to skilled facility once medically stabilized Morbid obesity -BMI is 42.1 -Recommend weight loss -Complicates treatment, prognosis, outcomes DVT prophylaxis -INR is subtherapeutic at 1.7 -Will give subcu heparin 3 times daily until INR is therapeutic 05/10: INR increased to 1.9. Warfarin was increased to 5 mg on 05/10. CODE STATUS Full code Discharge medication reconciliation done. Discharge follow-up instructions completed. Discharge process discussed with the patient and all questions were answered to patient's satisfaction. Follow with PCP in 1 to 2 weeks Total time spent, exact 35 minutes on discharge meds reconciliation, examination, coordination of care with nurses and ancillary staff, review of imaging and blood test and discussion with the patient on follow-up instructions. Microbiology Past 72 Hours 05/09/23 16:54 Urine Catheter - Catheter Urine Culture - Final Pseudomonas aeruginosa 05/09/23 15:45 Mucosa - Nose SARS-CoV-2, Influenza & RSV (PCR) - Final Laboratory Results 05/11/23 03:55: WBC 7.0, RBC 2.93 L, Hgb 8.4 L, Hct 27.7 L, MCV 94.5 H, MCH 28.7, MCHC 30.3 L, RDW Std Deviation 54.7 H, RDW Coeff of Abdiel 15.8 H, Plt Count 273, MPV 9.6, Immature Gran % (Auto) 0.400, Neut % (Auto) 74.7 H, Lymph % (Auto) 8.1 L, Franklin % (Auto) 14.8 H, Eos % (Auto) 1.6, Baso % (Auto) 0.4, Absolute Neuts (auto) 5.2, Absolute Lymphs (auto) 0.56 L, Nucleated RBC % 0, PT 22.0 H, INR 1.9, Sodium 141, Potassium 3.4 L, Chloride 111 H, Carbon Dioxide 24.0, Anion Gap 6, BUN 12, Creatinine 1.13, Estim Creat Clear Calc 77.38, Est GFR (MDRD) Af Amer 82, Est GFR (MDRD) Non-Af 68, BUN/Creatinine Ratio 10.6, Glucose 96, Calcium 9.2 Medications at Discharge Home Medications citalopram 20 mg tablet 20 mg PO DAILY MOOD 09/21/14 tamsulosin 0.4 mg capsule 0.4 mg PO DAILY bph 05/18/19 hydroxychloroquine 200 mg tablet 200 mg PO BID arthritis 04/25/21 Handicap Placard #1 ea 07/05/21 isosorbide mononitrate 60 mg tablet,extended release 24 hr 60 mg PO BID heart 02/17/23 nitroglycerin 0.4 mg sublingual tablet 0.4 mg sublingual Q5M PRN chest pain 02/17/23 clopidogrel 75 mg tablet 75 mg PO DAILY blood thinner 04/11/23 folic acid 1 mg tablet 1 mg PO DAILY vitamin 04/11/23 losartan 50 mg tablet 50 mg PO DAILY bp 04/11/23 ondansetron HCl 4 mg tablet 4 mg PO Q4H PRN nausea 04/11/23 pantoprazole 40 mg tablet,delayed release 40 mg PO Q12H stomach 04/11/23 sucralfate 1 gram tablet 1 g PO 4X/DAY stomach 04/11/23 acetaminophen 500 mg tablet 1,000 mg PO BID 05/09/23 aluminum-mag hydroxide-simethicone 200 mg-200 mg-20 mg/5 mL oral susp (Advanced Antacid-Antigas) 30 ml PO DAILY PRN GERD 05/09/23 amoxicillin 875 mg tablet 875 mg PO Q12H OSTEOMYELITIS 05/09/23 atorvastatin 80 mg tablet 80 mg PO QHS CHOLESTEROL 05/09/23 food supplemt, lactose-reduced 0.06 gram-1 kcal/mL oral liquid (Boost High Prot ein) 120 ml PO BIDCM 05/09/23 melatonin 3 mg tablet 3 mg PO QHS PRN sleep 05/09/23 metoprolol succinate 50 mg tablet,extended release 24 hr 50 mg PO BID BLOOD PRESSURE 05/09/23 mirtazapine 15 mg tablet 15 mg PO QHS 05/09/23 naloxone 4 mg/actuation nasal spray 4 mg intranasal Q3M PRN opioid overdose 05/09/23 nystatin 100,000 unit/gram topical powder 1 applic topical BID SKIN IRRITATION 05/09/23 oxycodone 5 mg tablet 5 - 10 mg PO Q4H PRN Pain Score 4-6 05/09/23 potassium chloride 20 mEq/15 mL oral liquid 20 meq PO DAILY 05/09/23 ranolazine 500 mg tablet,extended release,12 hr 500 mg PO BID HEART DISEASE 05/09/23 scopolamine base 1 mg over 3 days transdermal patch 1 patch transdermal Q3D PRN nausea and vomiting 05/09/23 sennosides 8.6 mg-docusate sodium 50 mg tablet (Senna with Docusate Sodium) 1 tab-cap PO BID 05/09/23 zinc oxide 20 % topical ointment 1 applic topical BID 05/09/23 ciprofloxacin HCl 500 mg tablet (Cipro) 500 mg PO BID 4 days #8 tabs 05/11/23 cyclobenzaprine 10 mg tablet 10 mg PO Q8H PRN pain 30 days #0 tabs 05/11/23 warfarin 5 mg tablet (Jantoven) 5 mg PO DINNER #0 tabs 05/11/23 Physical Exam Narrative Seen and examined. Patient improved. Blood pressure systolic 156. Sepsis is resolved. No fever. Physical exam General: Alert, Oriented x3, Cooperative HEENT: Atraumatic, PERRLA, EOMI, Normocephalic Oral: Oral mucosa dry. No Gingival or Mucosal Lesions/ Ulcerations Neck: Supple, No JVD, Negative Carotid Bruits Chest wall/Lungs: Air entry diminished in bilateral lung bases. No crepitation/rhonchi Cardiovascular: A-fib, irregular rhythm, Normal S1, Normal S2, No M/G/R Abdomen: Bowel Sounds Present, Soft, Non Tender, Non-Distended : No dysuria. No renal angle tenderness. No suprapubic tenderness. Extremities: No edema, Capillary Refill Less than 3 Seconds Skin: No rashes, No breakdown Musculoskeletal: Weakness, chronic of lower extremities, 4/5 at hips and knee joints. Right TKR. Chronic mild tenderness present. Neurological: Cranial nerves II-XII grossly intact, DTR 2+/4. No acute focal neurological deficit. Psych/Mental Status: Flat affect. Medical Records Data Medical Nutrition Assessment Dietitian: Malnutrition Criteria Met Start: 05/10/23 10:04 Freq: Status: Active Protocol: Document 05/10/23 10:05 AG (Rec: 05/10/23 10:05 AG Desktop) Nutrition Malnutrition Evidence of Malnutrition Exists Yes Malnutrition (severe): Acute Illness/Injury Evidenced By Suboptimal Energy Intake ( Severe),Weight Loss (Severe) Clinical Problem Acute Disease or Injury Related Malnutrition Etiology severe, acute malnutrition related to inadequate energy intake w/ acute hospitalizations, nausea/ emesis, swallowing difficulty Signs/Symptoms as evidenced by unintentional wt loss 17% x 3 months, 6% wt loss x 1 month; estimated PO intake meeting <75% of estimated energy needs >3 months Status Active Problem Recommendation Dietitian Recommendations/Changes will adjust diet to regular and add ensure compact BID w/ meals; INVESTOR RELATIONS ASSOCIATE consult, texture/ consistency modifications per INVESTOR RELATIONS ASSOCIATE as needed. Weight / BMI Weight Weight: 261 lb 14.546 oz Body Mass Index (BMI) 38.7 ABG / Lab / Microbiology Data 05/11/23 03:55 05/11/23 03:55 Laboratory: Laboratory Results - last 24 hr 05/10/23 14:15: PT 20.8 H, INR 1.8 05/11/23 03:55: WBC 7.0, RBC 2.93 L, Hgb 8.4 L, Hct 27.7 L, MCV 94.5 H, MCH 28.7 , MCHC 30.3 L, RDW Std Deviation 54.7 H, RDW Coeff of Abdiel 15.8 H, Plt Count 273, MPV 9.6, Immature Gran % (Auto) 0.400, Neut % (Auto) 74.7 H, Lymph % (Auto) 8.1 L, Franklin % (Auto) 14.8 H, Eos % (Auto) 1.6, Baso % (Auto) 0.4, Absolute Neuts (auto) 5.2, Absolute Lymphs (auto) 0.56 L, Nucleated RBC % 0, PT 22.0 H, INR 1 .9, Sodium 141, Potassium 3.4 L, Chloride 111 H, Carbon Dioxide 24.0, Anion Gap 6, BUN 12, Creatinine 1.13, Estim Creat Clear Calc 77.38, Est GFR (MDRD) Af Amer 82, Est GFR (MDRD) Non-Af 68, BUN/Creatinine Ratio 10.6, Glucose 96, Calcium 9.2 Microbiology: Microbiology 05/09/23 15:45 Blood Culture (Wb) - Anticubital Right Blood Culture - Preliminary No growth in 48 hours. 05/09/23 15:29 Blood Culture (Wb) - Right Hand Blood Culture - Preliminary No growth in 48 hours. 05/09/23 16:54 Urine Catheter - Catheter Urine Culture - Final Pseudomonas aeruginosa 05/09/23 15:45 Mucosa - Nose SARS-CoV-2, Influenza & RSV (PCR) - Final Radiography Diagnostic Testing: Radiology Impression Chest X-Ray 05/10/23 14:00 IMPRESSION: Right-sided PICC line with its tip in the cavoatrial junction region. Electronically Signed: Jeovany Rosas MD at 14:11 EST , Meaningful Use Info Meaningful Use Diagnoses (Choose all that apply): None applicable Discharge Plan Admission Admit Date/Time: 05/09/23 18:05 Primary Reason for Your Visit: Pseudomonas UTI related sepsis Attending Provider: Wild Martinez Primary Care Provider: Bryce Zamarripa Consulting Providers: Noa Leyva; Merritt Soares Discharge Orders/Prescriptions Prescriptions: New warfarin [Jantoven] 5 mg Tablet 5 mg PO DINNER Qty: 0 0RF Rx Instructions: Keep INR between 2-3 about 2.5. ciprofloxacin HCl [Cipro] 500 mg tablet 500 mg PO BID 4 Days Qty: 8 0RF Continued hydroxychloroquine 200 mg tablet 200 mg PO BID (DME) Handicap Placard See Rx Instructions .Route .MEDSUPPLY Qty: 1 0RF Rx Instructions: Good from 07/05/2021-07/05/2026; citalopram 20 MG tablet 20 mg PO DAILY tamsulosin 0.4 MG capsule 0.4 mg PO DAILY isosorbide mononitrate 60 mg tablet extended release 24 hr 60 mg PO BID nitroglycerin 0.4 mg tablet, sublingual 0.4 mg sublingual Q5M PRN (Reason: chest pain) clopidogrel 75 mg tablet 75 mg PO DAILY folic acid 1 mg tablet 1 mg PO DAILY ondansetron HCl 4 mg tablet 4 mg PO Q4H PRN pantoprazole 40 mg tablet,delayed release (DR/EC) 40 mg PO Q12H sucralfate 1 gram tablet 1 g PO 4X/DAY potassium chloride 20 mEq/15 mL liquid 20 meq PO DAILY scopolamine base 1 mg over 3 days patch 3 day 1 patch transdermal Q3D PRN (Reason: nausea and vomiting) alum-mag hydroxide-simeth [Advanced Antacid-Antigas] 200-200-20 mg/5 mL suspension 30 ml PO DAILY PRN (Reason: GERD) melatonin 3 mg tablet 3 mg PO QHS PRN (Reason: sleep) metoprolol succinate 50 mg tablet extended release 24 hr 50 mg PO BID atorvastatin 80 mg tablet 80 mg PO QHS mirtazapine 15 mg tablet 15 mg PO QHS naloxone 4 mg/actuation spray,non-aerosol 4 mg intranasal Q3M PRN (Reason: opioid overdose) Rx Instructions: spray 1 dose into ONE nostril; alternate nostrils w each dose until help arrives nystatin 100,000 unit/gram powder 1 applic topical BID Rx Instructions: APPLY TO AFFECTED AREAS TWICE DAILY ranolazine 500 mg tablet extended release 12 hr 500 mg PO BID sennosides-docusate sodium [Senna with Docusate Sodium] 8.6-50 mg tablet 1 tab-cap PO BID zinc oxide 20 % ointment 1 applic topical BID acetaminophen 500 mg tablet 1,000 mg PO BID amoxicillin 875 mg tablet 875 mg PO Q12H Boost High Protein 0.06 gram- 1 kcal/mL liquid 120 ml PO BIDCM oxycodone 5 mg Tablet 5 - 10 mg PO Q4H PRN (Reason: Pain Score 4-6) Changed cyclobenzaprine 10 mg tablet 10 mg PO Q8H PRN (Reason: pain) 30 Days Qty: 0 0RF Held losartan 50 mg tablet 50 mg PO DAILY Hold Instructions: Hold for 4 days. Hold for SBP less than 130 mmHg Discontinued warfarin 4 mg tablet 4 mg PO QHS Protocol: Dose Management Condition: Sunday Dose/Route: 4 mg Instruction: 1 x 4 mg tablet Condition: Sunday Dose/Route: 8 mg Instruction: 2 x 4 mg tablets Condition: Sunday Dose/Route: 8 mg Instruction: 2 x 4 mg tablets Condition: Sunday Dose/Route: 8 mg Instruction: 2 x 4 mg tablets Condition: Dose/Route: 8 mg Instruction: 2 x 4 mg tablets Condition: Sunday Dose/Route: 8 mg Instruction: 2 x 4 mg tablets Condition: Sunday Dose/Route: 4 mg Instruction: 1 x 4 mg tablet Protocol Text: Adjustment Start Date: Sunday02/12/23 INR Value: 1.6 INR Date: 02/12/23 Recheck Date: 02/19/23 Referrals / Follow Up: Bryce Zamarripa MD [Primary Care Provider] - Cornell Gunter MD [Med Staff - Active Staff] - Hal Phipps DO [Med Staff - Active Staff] - Within 1 Month Merritt Soares MD [Med Staff - Active Staff] - Within 1 Month Disposition Disposition (needs filled in before D/C Order can be placed): [facility] Facility Charges/Coding Visit Charges Inpatient E&M: 27522 Disch Hosp >30min
--- NOTE | 2023-05-11 13:09 | CON.PCM.ID_ITS ---
Assessment & Plan Assessment/Plan (1) Urinary tract infection in male: PLAN: Ucx with PsA. On cefepime since 05/08. Ok for discharge on po cipro 500mg bid for 4 more days. (2) Discitis of lumbar region: PLAN: Cont suppressive amoxicillin. ID followup in one month. HPI Consult Data Date of Consult: 05/11/23 HPI Narrative Reason for Consultation: uti HPI Narrative: GUSTAVO HARTMAN, is a 72 M with recent admits for T11-L1 ecoli osteo/discitis with phlegmon. Admitted here and to [facility], completed course with IV ceftriaxone, then put on po amox for suppression. Admitted 05/08 from facility with several days n/v, fever, confusion, vision changes. Admitted here on cefepime, rapidly improved. Ucx with PsA. Denies urine changes. Full ROS performed and neg except as noted above. [facility] Medical History Ambulates with cane Anemia Anxiety and depression Arthritis Atherosclerotic heart disease of [place] coronary artery without angina pectoris Atrial fibrillation Chronic UTI CKD (chronic kidney disease), stage III Depression Essential hypertension Former smoker GERD (gastroesophageal reflux disease) Gout History of left heart catheterization (LHC) (~07/29/19) halfway (current) use of anticoagulants Morbid obesity LILI on CPAP Paroxysmal atrial fibrillation Polyarthritis Pure hypercholesterolemia Viral syndrome Wears glasses Home Medications citalopram 20 mg tablet 20 mg PO DAILY MOOD 09/21/14 [History Last Taken 02/16/23] tamsulosin 0.4 mg capsule 0.4 mg PO DAILY bph 05/18/19 [History Last Taken 02/16/23] hydroxychloroquine 200 mg tablet 200 mg PO BID arthritis 04/25/21 [History Last Taken 02/16/23] Handicap Placard #1 ea 07/05/21 [Rx Last Taken Unknown] isosorbide mononitrate 60 mg tablet,extended release 24 hr 60 mg PO BID heart 02/17/23 [History Last Taken 02/16/23] nitroglycerin 0.4 mg sublingual tablet 0.4 mg sublingual Q5M PRN chest pain 02/17/23 [History Last Taken Unknown] clopidogrel 75 mg tablet 75 mg PO DAILY blood thinner 04/11/23 [History Last Taken Unknown] folic acid 1 mg tablet 1 mg PO DAILY vitamin 04/11/23 [History Last Taken Un known] losartan 50 mg tablet 50 mg PO DAILY bp 04/11/23 [History Last Taken Unknown] ondansetron HCl 4 mg tablet 4 mg PO Q4H PRN nausea 04/11/23 [History Last Taken Unknown] pantoprazole 40 mg tablet,delayed release 40 mg PO Q12H stomach 04/11/23 [History Last Taken Unknown] sucralfate 1 gram tablet 1 g PO 4X/DAY stomach 04/11/23 [History Last Taken Unknown] acetaminophen 500 mg tablet 1,000 mg PO BID 05/09/23 [History Last Taken Unknown] aluminum-mag hydroxide-simethicone 200 mg-200 mg-20 mg/5 mL oral susp (Advanced Antacid-Antigas) 30 ml PO DAILY PRN GERD 05/09/23 [History Last Taken Unknown] amoxicillin 875 mg tablet 875 mg PO Q12H OSTEOMYELITIS 05/09/23 [History Last Taken Unknown] atorvastatin 80 mg tablet 80 mg PO QHS CHOLESTEROL 05/09/23 [History Last Taken Unknown] food supplemt, lactose-reduced 0.06 gram-1 kcal/mL oral liquid (Boost High Protein) 120 ml PO BIDCM 05/09/23 [History Last Taken Unknown] melatonin 3 mg tablet 3 mg PO QHS PRN sleep 05/09/23 [History Last Taken Unkno wn] metoprolol succinate 50 mg tablet,extended release 24 hr 50 mg PO BID BLOOD PRESSURE 05/09/23 [History Last Taken Unknown] mirtazapine 15 mg tablet 15 mg PO QHS 05/09/23 [History Last Taken Unknown] naloxone 4 mg/actuation nasal spray 4 mg intranasal Q3M PRN opioid overdose 05/09/23 [History Last Taken Unknown] nystatin 100,000 unit/gram topical powder 1 applic topical BID SKIN IRRITATION 05/09/23 [History Last Taken Unknown] oxycodone 5 mg tablet 5 - 10 mg PO Q4H PRN Pain Score 4-6 05/09/23 [History Last Taken Unknown] potassium chloride 20 mEq/15 mL oral liquid 20 meq PO DAILY 05/09/23 [History Last Taken Unknown] ranolazine 500 mg tablet,extended release,12 hr 500 mg PO BID HEART DISEASE 05/09/23 [History Last Taken Unknown] scopolamine base 1 mg over 3 days transdermal patch 1 patch transdermal Q3D PRN nausea and vomiting 05/09/23 [History Last Taken Unknown] sennosides 8.6 mg-docusate sodium 50 mg tablet (Senna with Docusate Sodium) 1 tab-cap PO BID 05/09/23 [History Last Taken Unknown] zinc oxide 20 % topical ointment 1 applic topical BID 05/09/23 [History Last Taken Unknown] cyclobenzaprine 10 mg tablet 10 mg PO Q8H PRN pain 30 days #0 tabs 05/11/23 [Rx Last Taken Unknown] warfarin 5 mg tablet (Jantoven) 5 mg PO DINNER #0 tabs 05/11/23 [Rx Last Taken Unknown] Allergy/AdvReac Type Severity Reaction Status Date / Time bee venom protein (honey bee) Allergy Hives Verified 05/09/23 15:12 amlodipine AdvReac Severe severe Verified 05/09/23 15:12 swelling in hands and feet ceftriaxone AdvReac Nausea/Vom/ Verified 05/09/23 21:31 Diarrhea spider venom AdvReac Other Verified 05/09/23 15:12 Family History Father Heart disease Diabetes CAD (coronary artery disease) History of coronary artery bypass surgery Cardiac pacemaker in situ Pure hypercholesterolemia Surgical History H/O umbilical hernia repair History of cystoscopy History of inguinal hernia repair, bilateral History of knee surgery History of total right knee replacement Social History (Updated 05/09/23 @ 18:[address] Noa Leyva DO) housing: correction Smoking Status: Former smoker how long ago did patient quit smokin alcohol intake: never substance use type: does not use caffeine: Yes Type: tea Number of servings: 2 Physical Exam Const alert, oriented x3 and no apparent distress General Appearance: cooperative HEENT normocephalic and head/scalp atraumatic Eyes PERRL and EOMs intact bilaterally Neck No nodes Resp normal air movement and clear to auscultation bilaterally Cardio regular rate and regular rhythm GI soft to palpation, non-tender and non-distended Extremity General Extremity: edema Skin no rashes or lesions noted Neuro CN's II-XII intact bilaterally Medical Records Data Medical Nutrition Assessment Dietitian: Malnutrition Criteria Met Start: 05/10/23 10:04 Freq: Status: Active Protocol: Document 05/10/23 10:05 AG (Rec: 05/10/23 10:05 AG Desktop) Nutrition Malnutrition Evidence of Malnutrition Exists Yes Malnutrition (severe): Acute Illness/Injury Evidenced By Suboptimal Energy Intake ( Severe),Weight Loss (Severe) Clinical Problem Acute Disease or Injury Related Malnutrition Etiology severe, acute malnutrition related to inadequate energy intake w/ acute hospitalizations, nausea/ emesis, swallowing difficulty Signs/Symptoms as evidenced by unintentional wt loss 17% x 3 months, 6% wt loss x 1 month; estimated PO intake meeting <75% of estimated energy needs >3 months Status Active Problem Recommendation Dietitian Recommendations/Changes will adjust diet to regular and add ensure compact BID w/ meals; HOME ADVISOR consult, texture/ consistency modifications per HOME ADVISOR as needed. Lab / Micro Data Attestation: I reviewed the patient's lab results. 05/11/23 03:55 05/11/23 03:55 Labs: Laboratory Results - last 24 hr 05/10/23 14:15: PT 20.8 H, INR 1.8 05/11/23 03:55: WBC 7.0, RBC 2.93 L, Hgb 8.4 L, Hct 27.7 L, MCV 94.5 H, MCH 28.7, MCHC 30.3 L, RDW Std Deviation 54.7 H, RDW Coeff of Abdiel 15.8 H, Plt Count 273, MPV 9.6, Immature Gran % (Auto) 0.400, Neut % (Auto) 74.7 H, Lymph % (Auto) 8.1 L, Cobb % (Auto) 14.8 H, Eos % (Auto) 1.6, Baso % (Auto) 0.4, Absolute Neuts (auto) 5.2, Absolute Lymphs (auto) 0.56 L, Nucleated RBC % 0, PT 22.0 H, INR 1.9, Sodium 141, Potassium 3.4 L, Chloride 111 H, Carbon Dioxide 24.0, Anion Gap 6, BUN 12, Creatinine 1.13, Estim Creat Clear Calc 77.38, Est GFR (MDRD) Af Amer 82, Est GFR (MDRD) Non-Af 68, BUN/Creatinine Ratio 10.6, Glucose 96, Calcium 9.2 Micro: Microbiology 05/09/23 15:45 Blood Culture (Wb) - Anticubital Right Blood Culture - Preliminary No growth in 48 hours. 05/09/23 15:29 Blood Culture (Wb) - Right Hand Blood Culture - Preliminary No growth in 48 hours. 05/09/23 16:54 Urine Catheter - Catheter Urine Culture - Final Pseudomonas aeruginosa Imaging Radiology Impression Chest X-Ray 05/10/23 14:00 IMPRESSION: Right-sided PICC line with its tip in the cavoatrial junction region. Electronically Signed: Jeovany Rosas MD at 14:11 EST ,
--- NOTE | 2023-05-11 13:23 | NURSING ---
This RN gave 40meq potassium po but had it dissolved in water for pt to take, see EMAR on time. Pt just now gagging and vomitting, states it was the potassium pills and it burned. 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 This RN is going to call [facility] to inform. This RN did Cortext Dr. Martinez to inform. He did view it but did not respond.
--- NOTE | 2023-05-11 14:59 | CT_ITS ---
We are attempting to reach an attending provider to discuss findings. An addendum with communication details will be sent when the communication is complete. STUDY: CT ABDOMEN AND PELVIS WITHOUT CONTRAST REASON FOR EXAM: Male, 72 years old. severe constipation/mild distension -- No IV contrast RADIATION DOSAGE (If Supplied By Facility): CTDIvol = ( 27.83 ) mGy, DLP = ( 1536.79 ) mGycm TECHNIQUE: Transaxial images were obtained from the dome of the diaphragm to the symphysis pubis with oral contrast, and without intravenous contrast. Sagittal and coronal images were reconstructed. Individualized dose optimization techniques were used for this CT. COMPARISON: 02/17/2023 FINDINGS: No change in 6 cm noncalcified nodule in the right lower lobe lungs on image 5 consistent with a noncalcified granuloma. The visualized portions of the heart are within normal limits. Normal liver. There are multiple gallstones. Gallbladder wall thickening and stranding of surrounding fat worrisome for acute cholecystitis. Correlation with right upper quadrant ultrasound is recommended. Normal spleen. Normal pancreas. Normal bilateral adrenal glands. 3 mm nonobstructing stone in the upper pole the right kidney. No hydronephrosis, ureteral stone, ureteral dilatation. Normal left kidney. Normal visualized stomach. Normal small intestine. Normal colon. The appendix is visualized and appears normal. There is diffuse atherosclerotic calcification of the abdominal aorta, without a demonstrated aneurysm. Normal inferior vena cava. Normal retroperitoneum. Normal urinary bladder. There are prostatic calcifications. Normal abdominal wall. Status post transpedicular fixation of the thoracic lumbar spine. CT/Abdomen/Pel W ORAL Cont Only IMPRESSION: Suspect acute cholecystitis and correlation with right upper quadrant ultrasound is recommended. Electronically Signed: Devin Ross MD at 20:32 EST ,
--- NOTE | 2023-05-11 15:03 | PCM.PN.HOSP ---
Reason for Visit Reason for Visit: Diagnoses Sepsis, unspecified organism (05/09/23) Elevated white blood cell count, unspecified (05/09/23) Acidosis, unspecified (05/09/23) Acute kidney failure, unspecified (05/09/23) Chest pain, unspecified (05/09/23) Abnormal coagulation profile (05/09/23) Objective Data Objective Data Vital Signs: Vital Signs Temp Pulse Resp BP Pulse Ox O2 Del Method FiO2 97.2 F L 73 15 156/81 H 98 Room Air 21 05/11/23 03:00 05/11/23 04:25 05/11/23 04:25 05/11/23 03:00 05/11/23 04:25 05/11/23 03:00 05/11/23 04:25 Oxygen Delivery Method Room Air Weight: 261 lb 14.546 oz Body Mass Index (BMI) 38.7 Intake & Output: Intake and Output for Last 24 Hours 05/09/23 05/10/23 05/11/23 23:59 23:59 23:59 Intake Total 5740 / 5740 1100 / 1100 100 / 100 Output Total 270 / 270 2725 / 2725 800 / 800 Balance 5470 / 5470 -1625 / -1625 -700 / -700 Medical Nutrition Assessment Dietitian: Malnutrition Criteria Met Start: 05/10/23 10:04 Freq: Status: Active Protocol: Document 05/10/23 10:05 AG (Rec: 05/10/23 10:05 AG Desktop) Nutrition Malnutrition Evidence of Malnutrition Exists Yes Malnutrition (severe): Acute Illness/Injury Evidenced By Suboptimal Energy Intake ( Severe),Weight Loss (Severe) Clinical Problem Acute Disease or Injury Related Malnutrition Etiology severe, acute malnutrition related to inadequate energy intake w/ acute hospitalizations, nausea/ emesis, swallowing difficulty Signs/Symptoms as evidenced by unintentional wt loss 17% x 3 months, 6% wt loss x 1 month; estimated PO intake meeting <75% of estimated energy needs >3 months Status Active Problem Recommendation Dietitian Recommendations/Changes will adjust diet to regular and add ensure compact BID w/ meals; FARM EQUIPMENT TECHNICIAN consult, texture/ consistency modifications per FARM EQUIPMENT TECHNICIAN as needed. Lab / Micro Data 05/11/23 03:55 05/11/23 03:55 Labs: Laboratory Results - last 24 hr 05/09/23 16:54: Urine Color Red, Urine Clarity Turbid, Urine pH 5.0, Ur Specific Arnold 1.020, Urine Protein 500 H, Urine Glucose (UA) Normal, Urine Ketones 15 H, Urine Occult Blood 250 H, Urine Nitrite Negative, Urine Bilirubin 1 H, Urine Urobilinogen Normal, Ur Leukocyte Esterase 500 H, Urine RBC 25-50 SEEN, Urine WBC 25-50 SEEN, Ur Squamous Epith Cells 0 SEEN, Urine Bacteria 2+, Urine Mucus 0 SEEN 05/10/23 14:15: PT 20.8 H, INR 1.8 05/11/23 03:55: WBC 7.0, RBC 2.93 L, Hgb 8.4 L, Hct 27.7 L, MCV 94.5 H, MCH 28.7, MCHC 30.3 L, RDW Std Deviation 54.7 H, RDW Coeff of Abdiel 15.8 H, Plt Count 273, MPV 9.6, Immature Gran % (Auto) 0.400, Neut % (Auto) 74.7 H, Lymph % (Auto) 8.1 L, [place] % (Auto) 14.8 H, Eos % (Auto) 1.6, Baso % (Auto) 0.4, Absolute Neuts (auto) 5.2, Absolute Lymphs (auto) 0.56 L, Nucleated RBC % 0, PT 22.0 H, INR 1.9, Sodium 141, Potassium 3.4 L, Chloride 111 H, Carbon Dioxide 24.0, Anion Gap 6, BUN 12, Creatinine 1.13, Estim Creat Clear Calc 77.38, Est GFR (MDRD) Af Amer 82, Est GFR (MDRD) Non-Af 68, BUN/Creatinine Ratio 10.6, Glucose 96, Calcium 9.2 Micro: Microbiology 05/09/23 16:54 Urine Catheter - Catheter Urine Culture - Final Pseudomonas aeruginosa 05/09/23 15:45 Mucosa - Nose SARS-CoV-2, Influenza & RSV (PCR) - Final Radiography Diagnostic Testing: Radiology Impression Chest X-Ray 05/10/23 14:00 IMPRESSION: Right-sided PICC line with its tip in the cavoatrial junction region. Electronically Signed: Jeovany Rosas MD at 14:11 EST , Physical Exam Narrative Seen and examined. Patient improved. Blood pressure systolic 156. Sepsis is resolved. No fever. Physical exam General: Alert, Oriented x3, Cooperative HEENT: Atraumatic, PERRLA, EOMI, Normocephalic Oral: Oral mucosa dry. No Gingival or Mucosal Lesions/ Ulcerations Neck: Supple, No JVD, Negative Carotid Bruits Chest wall/Lungs: Air entry diminished in bilateral lung bases. No crepitation/rhonchi Cardiovascular: A-fib, irregular rhythm, Normal S1, Normal S2, No M/G/R Abdomen: Bowel Sounds Present, Soft, Non Tender, Non-Distended : No dysuria. No renal angle tenderness. No suprapubic tenderness. Extremities: No edema, Capillary Refill Less than 3 Seconds Skin: No rashes, No breakdown Musculoskeletal: Weakness, chronic of lower extremities, 4/5 at hips and knee joints. Right TKR. Chronic mild tenderness present. Neurological: Cranial nerves II-XII grossly intact, DTR 2+/4. No acute focal neurological deficit. Psych/Mental Status: Flat affect. Assessment & Plan Assessment/Plan (1) Sepsis: QUALIFIERS: Sepsis acute organ dysfunction status: unspecified Sepsis type: sepsis due to unspecified organism Qualified Code(s): A41.9 - Sepsis, unspecified organism (2) TEODORO (acute kidney injury): (3) Chest pain: PLAN: Plan 72-year-old gentleman was admitted with chest discomfort around noon time from [facility] but it was felt that he has a chronic chest discomfort and is on Ranexa on home medication. He also had recent hospitalization in April for intractable back pain from epidural abscess from where he was discharged to SNF with Adams catheter. Adams catheter was removed yesterday. Patient is stated that he could not get warmth and was found hypotensive in the ED and clinical diagnosis of sepsis was made 1. Sepsis secondary to suspected urinary tract infection: Patient is admitted to ICU. -Patient has leukocytosis, lactic acidosis, TEODORO, hypotension--> meets criteria per SEP 1. Lactic acidosis 3.7. Repeat 1 normal. -Fluid boluses given at 30 cc/kg body weight due to hypotension--> total of 4 L -Patient did not require pressors. Fluid responsive hypotension. -Blood and urine cultures were obtained the emergency department -Continue cefepime and vancomycin due to frequent hospitalizations and instrumentation -ID has been consulted 05/10: Blood culture x 2 negative for 48 hours. Urine culture shows Pseudomonas aeruginosa more than thousand colonies, resistant to piperacillin/tazobactam. Patient on IV cefepime ID consult requested. Discontinue vancomycin. Patient recommended 4 more days of ciprofloxacin. Patient did not move bowel since 05/04. Patient large body therefore x-ray wound be appropriate therefore CT abdomen/pelvis with oral contrast only ordered. Patient given Dulcolax 10 mg oral 1 dose. MiraLAX ordered. Patient already on senna S. Will cancel the discharge today. Chest pain -Patient does have a history of coronary disease -Initial troponin was unremarkable at 27 with repeat pending -EKG shows chronic atrial fibrillation without any ST-T wave changes concerning for acute ischemia -Patient is on Ranexa at home so we will continue 05/10: With 3 serial troponins negative, ACS ruled out. TEODORO -Suspect related to decreased perfusion from hypotension however patient did just have Adams removed -Bladder scan as needed -IV fluids as noted above -Keep maps greater than 65 05/10: BUNs/creatinine 12.13. Hypotension -Secondary to the above -Baseline appears to run in the 140s to 150s systolic -89 on presentation -Fluid boluses as above 05/10: Patient blood pressure is on the higher side. Resume metoprolol and isosorbide mononitrate. Recent epidural abscess/osteomyelitis of lumbar spine -Patient has completed oral antibiotics however it does appear he is still on amoxicillin despite him telling me his completed antibiotics -Continue home amoxicillin--> cefepime should cover but I do not want to get this lost if cefepime discontinued depending on culture results -Not currently having any back pain -Monitor clinically with low threshold for imaging if back pain develops LILI -Continue home CPAP CAD/HTN/HPL - reports he had a stent in February -Continue Plavix and Coumadin -Continue high-dose atorvastatin -Hold antihypertensives due to hypotension on presentation -Continue home Ranexa GERD with history of GI bleed -Continue twice daily PPI -Continue Carafate Chronic atrial fibrillation -Patient is in rate controlled A-fib at this time -Hold metoprolol for now due to hypotension but low threshold to reinitiate if blood pressure stabilizes to avoid tachycardia -Warfarin dose increased to 5 mg daily. Patient not get warfarin yesterday therefore give 1 now follow INR 05/10: Today INR is 1.9. Continue warfarin 5 mg daily. BPH with obstruction -Patient had urinary retention postoperatively and had Adams removed after about 4 weeks today at [facility]. -Follow for urine output -Continue home Flomax -Bladder scan as needed Patient is very incontinent Polyarthritis -Continue home hydroxychloroquine Depression -Continue home citalopram Debility -PT/OT consultation -Patient will need to be discharged back to skilled facility once medically stabilized Morbid obesity -BMI is 42.1 -Recommend weight loss -Complicates treatment, prognosis, outcomes DVT prophylaxis -INR is subtherapeutic at 1.7 -Will give subcu heparin 3 times daily until INR is therapeutic 05/10: INR increased to 1.9. Warfarin was increased to 5 mg on 05/10. CODE STATUS Full code Microbiology Past 72 Hours 05/09/23 16:54 Urine Catheter - Catheter Urine Culture - Final Pseudomonas aeruginosa 05/09/23 15:45 Mucosa - Nose SARS-CoV-2, Influenza & RSV (PCR) - Final Laboratory Results 05/09/23 16:54: Urine Color Red, Urine Clarity Turbid, Urine pH 5.0, Ur Specific Arnold 1.020, Urine Protein 500 H, Urine Glucose (UA) Normal, Urine Ketones 15 H, Urine Occult Blood 250 H, Urine Nitrite Negative, Urine Bilirubin 1 H, Urine Urobilinogen Normal, Ur Leukocyte Esterase 500 H, Urine RBC 25-50 SEEN, Urine WBC 25-50 SEEN, Ur Squamous Epith Cells 0 SEEN, Urine Bacteria 2+, Urine Mucus 0 SEEN 05/10/23 14:15: PT 20.8 H, INR 1.8 05/11/23 03:55: WBC 7.0, RBC 2.93 L, Hgb 8.4 L, Hct 27.7 L, MCV 94.5 H, MCH 28.7, MCHC 30.3 L, RDW Std Deviation 54.7 H, RDW Coeff of Abdiel 15.8 H, Plt Count 273, MPV 9.6, Immature Gran % (Auto) 0.400, Neut % (Auto) 74.7 H, Lymph % (Auto) 8.1 L, [place] % (Auto) 14.8 H, Eos % (Auto) 1.6, Baso % (Auto) 0.4, Absolute Neuts (auto) 5.2, Absolute Lymphs (auto) 0.56 L, Nucleated RBC % 0, PT 22.0 H, INR 1.9, Sodium 141, Potassium 3.4 L, Chloride 111 H, Carbon Dioxide 24.0, Anion Gap 6, BUN 12, Creatinine 1.13, Estim Creat Clear Calc 77.38, Est GFR (MDRD) Af Amer 82, Est GFR (MDRD) Non-Af 68, BUN/Creatinine Ratio 10.6, Glucose 96, Calcium 9.2 Charges/Coding Visit Charges Inpatient E&M: 91574 Subs Hosp L2
[2023-05-11] MEDS: Contrast Allergy Safety Check IV (15:17)
[2023-05-11] MEDS: 0.9% Normal Saline (250mL Bag) 250 ML 15 ML IV (15:18)
--- NOTE | 2023-05-11 15:35 | NURSING ---
Dr. Martinez Cancelled discharge as pt continues to have emesis after pills but now after having yogurt. Pt states he ate 3/4 of his yogurt and then threw it up. This RN witness the emesis and it was 200cc of orange colored vomit which was the color of his yogurt. states that at the alf he has had trouble with certain foods like bread or dense food as it wont go down and they were going to work him up there for swallowing but he came here. Pt is surprised that her threw up yogurt. Normally yogurt wasn't a problem. Pt still has not had a BM. Dr. Martinez ordered CT ABd with oral contrast. Contrast is down here and in pt room and pt has started to drink at this time.
[2023-05-11] MEDS: Metoprolol(XL)Succ 50 MG Tablet PO (20:32)
[2023-05-11] MEDS: Mirtazapine 15 MG Tablet PO (20:36)
--- NOTE | 2023-05-11 21:03 | PN_ITS ---
Progress Note I was paged at 8:48pm on 10/07/[address] [facility] Radiology (Dr Ross). Radiology informed me of patient's CT scan results from today which showed acute cholecystitis. Dragger Out set up person Dr Brunson informed by phone call and she will follow up on the CT scan results.
--- NOTE | 2023-05-11 21:03 | US_ITS ---
We are attempting to reach an attending provider to discuss findings. An addendum with communication details will be sent when the communication is complete. STUDY: ABDOMINAL ULTRASOUND - RIGHT UPPER QUADRANT REASON FOR VISIT: Male, [address] with ? cholecystitis TECHNIQUE: Ultrasound evaluation of the right upper quadrant was performed with real-time and static ch-scale imaging. TECHNICAL QUALITY: Adequate. COMPARISON: None. FINDINGS: Liver: The liver measures 15.5 cm. There is a heterogeneous echogenicity of the liver. The bile ducts are within normal limits. There is hepatic color flow. The direction of portal flow is hepatopetal. There is no demonstrated mass lesion. Gallbladder: Normal distended gallbladder. The gallbladder wall measures 5 mm. There is a negative sonographic Peter''s sign. There is no pericholecystic fluid. There are multiple echogenic structures within the gallbladder, consistent with multiple gallstones. Common Bile Duct (C.B.D.): The common bile duct measures 3 mm. Pancreas: Normal size of the head, body and tail of the pancreas. There is normal echogenicity of the pancreas. There is no demonstrated pancreatic mass or cyst. Right Kidney: Normal size of the right kidney. The right kidney measures 12.2 cm. Normal renal cortex. The right cortex measures 0.8 cm. 3 cm cyst lower pole right kidney. There is no right hydronephrosis. US/Gallbladder IMPRESSION: Suspect acute cholecystitis with cholelithiasis and gallbladder wall thickening. Electronically Signed: Devin Ross MD at 22:35 EST ,
--- NOTE | 2023-05-11 21:03 | PCM.PN.BLA ---
Progress Note I was paged at 8:48pm on 10/07/2023 to call [facility] Radiology (Dr Ross). Radiology informed me of patient's CT scan results from today which showed acute cholecystitis. [employer] production cell leader Dr Brunson informed by phone call and she will follow up on the CT scan results.
--- NOTE | 2023-05-11 21:03 | PCM.HOSP.N ---
Hospitalist Note CT resulted with questionable acute cholecystitis, will obtain GB US for more definitive evaluation. If notable would obtain surgery consultation.
[2023-05-12] VITALS (10 sets, daily range): BP systolic 104–158; BP diastolic 60–81; PULSE 61–82; RESP 14–20; TEMP 36.3–36.6; O2SAT 96–98; BMI 38.6
[2023-05-12] MEDS: 0.9% Normal Saline (1000mL) 1,000 ML 75 ML IV (00:09)
[2023-05-12] MEDS: Cefepime HCl 2 GM in 0.9% Normal Saline (100mL MB+) 100 ML IV ×3 (05:13→21:18)
[2023-05-12 05:28] LABS: Absolute Lymphocyte Count 0.64 X10^3/uL (0.83-4.51); Absolute Neutrophil Count 5.4 X10^3/uL (2.0-7.7); Basophil# 0.04 X10^3/uL; Basophil% 0.6 % (0-1); Eosinophil# 0.03 X10^3/uL; Eosinophils% 0.4 % (0-5); Hematocrit 27.5 % (40-54); Hemoglobin 8.4 g/dL (13.0-16.5); Lymphocyte # 0.64 X10^3/ul (0.83-4.51); Mean Corp Hgb Conc 30.5 g/dL (32-36); Mean Corpuscular Hgb 28.5 pg (27.0-32.0); Mean Corpuscular Volume 93.2 fL (80-94); Mean Platelet Vol. 9.8 fl (6.2-12.0); NRBC Flagged by Analyzer 0 % (0-5); Neutrophil % 75.7 % (47-70); Platelet Count 275 K/mm3 (150-450); RBC Distribution Width CV 15.8 % (11.6-14.6); RBC Distribution Width SD 53.8 fl (35.1-43.9); Red Blood Count 2.95 M/mm3 (4.6-6.2); White Blood Count 7.1 K/mm3 (4.4-11.0)
[2023-05-12 05:41] LABS: Anion Gap 6 (5-15); BUN 11 mg/dL (7-18); BUN/Creat Ratio 11.2 RATIO (10-20); Calcium,Total 9.2 mg/dL (8.5-10.1); Chloride 110 mmol/L (98-107); Creatinine, Serum 0.98 mg/dL (0.70-1.30); EST Glomerular Filtration Rate 80 mL/min (>60); Est Glom Filt Rate - Afr Amer 97 mL/min (>60); Estimated Creatinine Clearance 89.07 ml/min; Glucose 91 mg/dL (74-106); Potassium 3.3 mmol/L (3.5-5.1); Sodium Level 140 mmol/L (136-145)
[2023-05-12 05:44] LABS: International Normalized Ratio 2.3; Prothrombin Time (Protime)PT. 25.3 SECONDS (11.7-14.9)
--- NOTE | 2023-05-12 07:06 | EX.PCM.CON.S ---
Assessment & Plan Assessment/Plan (1) Thickening of wall of gallbladder: PLAN: Plan Did review patient's CAT scan and ultrasound does have thickening of the gallbladder wall. However patient denies pain after eating and states that his throwing up is only if something, gets caught in his throat otherwise he denies pain once he is able to have the food passed to his stomach. Patient also denies any nausea or vomiting. Patient has no abdominal pain on exam. will plan to check a HIDA scan without CCK. If this is positive discussed with patient would plan for a cholecystostomy tube after discussing with IR which is not available this weekend. Currently patient's Coumadin is being held. Jennifer Nguyễn M.D. Pager: [phone] [facility] [address] [place] [address], [facility], [address] [place] [address] Office: [phone] HPI Consult Data Date of Consult: 05/12/23 HPI Narrative Reason for Consultation: Cholecystitis HPI Narrative: GUSTAVO HARTMAN, is a 72 M who admitted from the ER due to sepsis on 05/09/2023, patient initially had hypotension in the ER on admit. Patient was found to have a UTI also has been on continued antibiotics due to discitis of the lumbar region previous to admission?admitted in February 2023 for this. Patient's urine culture grew Pseudomonas, blood cultures have been negative. Patient had a CT abdomen pelvis as he threw up after her trying to take some pills yesterday. Patient states he occasionally throws up if things feel like they get caught in the back of his throat otherwise he states he is able to eat. Patient denies nausea after eating or abdominal pain after eating or currently. Patient CT abdomen question possible acute cholecystitis. Ultrasound was done showed thickened wall of the gallbladder and cholelithiasis?negative Peter sign. Patient's current INR is 2.3 patient is on warfarin due to A-fib. Patient has been on cefepime IV since 05/08 ID's outpatient set okay for discharge on Cipro 500 mg twice daily for 4 more days and continue on patient's suppressive amoxicillin due to the discitis. 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 Morbid obesity LILI on CPAP Paroxysmal atrial fibrillation Polyarthritis Pure hypercholesterolemia Viral syndrome Wears glasses Home Medications citalopram 20 mg tablet 20 mg PO DAILY MOOD 09/21/14 [History Last Taken 02/16/23] tamsulosin 0.4 mg capsule 0.4 mg PO DAILY bph 05/18/19 [History Last Taken 02/16/23] hydroxychloroquine 200 mg tablet 200 mg PO BID arthritis 04/25/21 [History Last Taken 02/16/23] Handicap Placard #1 ea 07/05/21 [Rx Last Taken Unknown] isosorbide mononitrate 60 mg tablet,extended release 24 hr 60 mg PO BID heart 02/17/23 [History Last Taken 02/16/23] nitroglycerin 0.4 mg sublingual tablet 0.4 mg sublingual Q5M PRN chest pain 02/17/23 [History Last Taken Unknown] clopidogrel 75 mg tablet 75 mg PO DAILY blood thinner 04/11/23 [History Last Taken Unknown] folic acid 1 mg tablet 1 mg PO DAILY vitamin 04/11/23 [History Last Taken Unknown] losartan 50 mg tablet 50 mg PO DAILY bp 04/11/23 [History Last Taken Unknown] ondansetron HCl 4 mg tablet 4 mg PO Q4H PRN nausea 04/11/23 [History Last Taken Unknown] pantoprazole 40 mg tablet,delayed release 40 mg PO Q12H stomach 04/11/23 [History Last Taken Unknown] sucralfate 1 gram tablet 1 g PO 4X/DAY stomach 04/11/23 [History Last Taken Unknown] acetaminophen 500 mg tablet 1,000 mg PO BID 05/09/23 [History Last Taken Unknown] aluminum-mag hydroxide-simethicone 200 mg-200 mg-20 mg/5 mL oral susp (Advanced Antacid-[place]as) 30 ml PO DAILY PRN GERD 05/09/23 [History Last Taken Unknown] amoxicillin 875 mg tablet 875 mg PO Q12H OSTEOMYELITIS 05/09/23 [History Last Taken Unknown] atorvastatin 80 mg tablet 80 mg PO QHS CHOLESTEROL 05/09/23 [History Last Taken Unknown] food supplemt, lactose-reduced 0.06 gram-1 kcal/mL oral liquid (Boost High Protein) 120 ml PO BIDCM 05/09/23 [History Last Taken Unknown] melatonin 3 mg tablet 3 mg PO QHS PRN sleep 05/09/23 [History Last Taken Unknown] metoprolol succinate 50 mg tablet,extended release 24 hr 50 mg PO BID BLOOD PRESSURE 05/09/23 [History Last Taken Unknown] mirtazapine 15 mg tablet 15 mg PO QHS 05/09/23 [History Last Taken Unknown] naloxone 4 mg/actuation nasal spray 4 mg intranasal Q3M PRN opioid overdose 05/09/23 [History Last Taken Unknown] nystatin 100,000 unit/gram topical powder 1 applic topical BID SKIN IRRITATION 05/09/23 [History Last Taken Unknown] oxycodone 5 mg tablet 5 - 10 mg PO Q4H PRN Pain Score 4-6 05/09/23 [History Last Taken Unknown] potassium chloride 20 mEq/15 mL oral liquid 20 meq PO DAILY 05/09/23 [History Last Taken Unknown] ranolazine 500 mg tablet,extended release,12 hr 500 mg PO BID HEART DISEASE 05/09/23 [History Last Taken Unknown] scopolamine base 1 mg over 3 days transdermal patch 1 patch transdermal Q3D PRN nausea and vomiting 05/09/23 [History Last Taken Unknown] sennosides 8.6 mg-docusate sodium 50 mg tablet (Senna with Docusate Sodium) 1 tab-cap PO BID 05/09/23 [History Last Taken Unknown] zinc oxide 20 % topical ointment 1 applic topical BID 05/09/23 [History Last Taken Unknown] bisacodyl 10 mg rectal suppository (Dulcolax (bisacodyl)) 10 mg TN DAILY PRN constipation #30 ea 05/11/23 [Rx Last Taken Unknown] ciprofloxacin HCl 500 mg tablet (Cipro) 500 mg PO BID 4 days #8 tabs 05/11/23 [Rx Last Taken Unknown] cyclobenzaprine 10 mg tablet 10 mg PO Q8H PRN pain 30 days #0 tabs 05/11/23 [Rx Last Taken Unknown] polyethylene glycol 3350 17 gram/dose oral powder (Miralax) 17 g PO DAILY #238 grams 05/11/23 [Rx Last Taken Unknown] warfarin 5 mg tablet (Jantoven) 5 mg PO DINNER #0 tabs 05/11/23 [Rx Last Taken Unknown] Allergy/AdvReac Type Severity Reaction Status Date / Time bee venom protein (honey bee) Allergy Hives Verified 05/09/23 15:12 amlodipine AdvReac Severe severe Verified 05/09/23 15:12 swelling in hands and feet ceftriaxone AdvReac Nausea/Vom/ Verified 05/09/23 21:31 Diarrhea spider venom AdvReac Other Verified 05/09/23 15:12 Family History Father Heart disease Diabetes CAD (coronary artery disease) History of coronary artery bypass surgery Cardiac pacemaker in situ Pure hypercholesterolemia Surgical History H/O umbilical hernia repair History of cystoscopy History of inguinal hernia repair, bilateral History of knee surgery History of total right knee replacement Social History (Updated 05/09/23 @ 18:[address] Noa Leyva DO) housing: senior living Smoking Status: Former smoker how long ago did patient quit smokin alcohol intake: never substance use type: does not use caffeine: Yes Type: tea Number of servings: 2 ROS Constitutional Constitutional: Denies anorexia Eyes Eyes: Denies loss of vision ENT HEENT: Reports dysphagia Cardiovascular Cardiovascular: Denies chest pain Respiratory/Chest Respiratory/Chest: Denies shortness of breath at rest Gastrointestinal Gastrointestinal: Denies abdominal pain, diarrhea, nausea or vomiting Musculoskeletal Musculoskeletal: Reports back pain Integumentary Integumentary: Denies rash Neurologic Neurologic: Denies dizziness Psychiatric Psychiatric: Denies anxiety Hematologic/Lymphatic Hematologic/Lymphatic: Reports easy bleeding Physical Exam Const alert and oriented x3 General Appearance: cooperative HEENT normocephalic Neck supple Resp normal respiratory effort Cardio regular rate GI soft to palpation and non-tender; Negative for non-distended Palpation: Negative for guarding Extremity no clubbing, cyanosis or edema Skin no rashes or lesions noted Neuro CN's II-XII intact bilaterally Psych mental status grossly normal Medical Records Data Medical Nutrition Assessment Dietitian: Malnutrition Criteria Met Start: 05/10/23 10:04 Freq: Status: Active Protocol: Document 05/10/23 10:05 AG (Rec: 05/10/23 10:05 AG Desktop) Nutrition Malnutrition Evidence of Malnutrition Exists Yes Malnutrition (severe): Acute Illness/Injury Evidenced By Suboptimal Energy Intake ( Severe),Weight Loss (Severe) Clinical Problem Acute Disease or Injury Related Malnutrition Etiology severe, acute malnutrition related to inadequate energy intake w/ acute hospitalizations, nausea/ emesis, swallowing difficulty Signs/Symptoms as evidenced by unintentional wt loss 17% x 3 months, 6% wt loss x 1 month; estimated PO intake meeting <75% of estimated energy needs >3 months Status Active Problem Recommendation Dietitian Recommendations/Changes will adjust diet to regular and add ensure compact BID w/ meals; SOIL SCIENTIST consult, texture/ consistency modifications per SOIL SCIENTIST as needed. Lab / Micro Data 05/12/23 05:15 05/12/23 05:15 Labs: Laboratory Results - last 24 hr 05/12/23 05:15: WBC 7.1, RBC 2.95 L, Hgb 8.4 L, Hct 27.5 L, MCV 93.2, MCH 28.5, MCHC 30.5 L, RDW Std Deviation 53.8 H, RDW Coeff of Abdiel 15.8 H, Plt Count 275, MPV 9.8, Immature Gran % (Auto) 0.300, Neut % (Auto) 75.7 H, Lymph % (Auto) 9.0 L, [place] % (Auto) 14.0 H, Eos % (Auto) 0.4, Baso % (Auto) 0.6, Absolute Neuts (auto) 5.4, Absolute Lymphs (auto) 0.64 L, Nucleated RBC % 0, PT 25.3 H, INR 2.3, Sodium 140, Potassium 3.3 L, Chloride 110 H, Carbon Dioxide 24.0, Anion Gap 6, BUN 11, Creatinine 0.98, Estim Creat Clear Calc 89.07, Est GFR (MDRD) Af Amer 97, Est GFR (MDRD) Non-Af 80, BUN/Creatinine Ratio 11.2, Glucose 91, Calcium 9.2 Micro: Microbiology 05/09/23 15:45 Blood Culture (Wb) - Anticubital Right Blood Culture - Preliminary No growth in 48 hours. 05/09/23 15:29 Blood Culture (Wb) - Right Hand Blood Culture - Preliminary No growth in 48 hours. 05/09/23 16:54 Urine Catheter - Catheter Urine Culture - Final Pseudomonas aeruginosa Imaging Radiology Impression Abdomen CT 05/11/23 14:59 IMPRESSION: Suspect acute cholecystitis and correlation with right upper quadrant ultrasound is recommended. Electronically Signed: Devin Ross MD at 20:32 EST Reading Location ID and State: [id number] / [facility] [employer] Tel , Service support , ADDENDUM: 05/11/23 2107 IMPRESSION: Suspect acute cholecystitis and correlation with right upper quadrant ultrasound is recommended. N.B. : The above Results were Read Back by Devin Ross MD to Nerissa Kiser MD, and understanding confirmed on 05/11/2023 21:00:12 (ET). Electronically Signed: Devin Ross MD at 20:32 EST Reading Location ID and State: [employer] Tel , Service support , Gallbladder Ultrasound 05/11/23 21:03 IMPRESSION: Suspect acute cholecystitis with cholelithiasis and gallbladder wall thickening. Electronically Signed: Devin Ross MD at 22:35 EST Reading Location ID and State: [employer] / [facility] Tel , Service support , ADDENDUM: 05/11/23 2253 IMPRESSION: Suspect acute cholecystitis with cholelithiasis and gallbladder wall thickening. N.B. : The above Results were Read Back by Devin Ross MD to CHUY Garcia RN, and understanding confirmed on 05/11/2023 22:46:20 (ET). Electronically Signed: Devin Ross MD at 22:35 EST Reading Location ID and State: [employer] / [facility] Tel , Service support , Charges/Coding Visit Charges Inpatient E&M: 33716 Init Hosp L3
--- NOTE | 2023-05-12 07:30 | NM_ITS ---
INDICATION: r/o acute cholecystitis EXAMINATION: NUCLEAR MEDICINE HEPATOBILIARY SCAN - NM Hepatobiliary Imaging W GB TECHNIQUE: 5.4 mCi technetium 99m choletec was intravenously administered and static images were obtained. COMPARISON: CT abdomen and pelvis with oral contrast 05/11/2023. Gallbladder ultrasound 05/11/2023. FINDINGS: There is homogeneous uptake and excretion of the radiopharmaceutical by the liver. There is no abnormal hyperemia along the gallbladder fossa. Biliary activity is noted at 10 minutes. Bowel activity is noted at 15 minutes. No gallbladder activity for 5 minutes to 120 minutes. NM/Hepatobilliary Imaging IMPRESSION: 1. No radiotracer activity of the gallbladder throughout the entire study suggesting cystic duct obstruction. 2. Normal excretion of radiotracer from the liver parenchyma to the biliary tree and small bowel except the gallbladder. Electronically Signed: Juanjo Amin MD at 15:16 EST ,
[2023-05-12] MEDS: Miconazole Nitrate 43 GM Bottle 1 APPLIC TOPICAL (08:00)
--- NOTE | 2023-05-12 11:36 | PN.HOSP_ITS ---
Reason for Visit Reason for Visit: Diagnoses Sepsis, unspecified organism (05/09/23) Elevated white blood cell count, unspecified (05/09/23) Acidosis, unspecified (05/09/23) Other specified diseases of gallbladder (05/09/23) Discitis, unspecified, lumbar region (05/09/23) Acute kidney failure, unspecified (05/09/23) Urinary tract infection, site not specified (05/09/23) Chest pain, unspecified (05/09/23) Abnormal coagulation profile (05/09/23) Objective Data Objective Data Vital Signs: Vital Signs Temp Pulse Resp BP Pulse Ox O2 Del Method FiO2 97.7 F L 64 16 154/66 H 98 CPAP 21 05/12/23 07:47 05/12/23 07:47 05/12/23 07:47 05/12/23 07:47 05/12/23 07:47 05/12/23 08:09 05/12/23 08:09 Oxygen Delivery Method CPAP Weight: 261 lb 0.437 oz Body Mass Index (BMI) 38.6 Intake & Output: Intake and Output for Last 24 Hours 05/10/23 05/11/23 05/12/23 23:59 23:59 23:59 Intake Total 1100 / 1100 1604 / 1604 232.75 / 232.75 Output Total 2725 / 2725 3150 / 3150 750 / 750 Balance -1625 / -1625 -1546 / -1546 -517.25 / -517.25 Medical Nutrition Assessment Dietitian: Malnutrition Criteria Met Start: 05/10/23 10:04 Freq: Status: Active Protocol: Document 05/10/23 10:05 (Rec: 05/10/23 10:05 Desktop) Nutrition Malnutrition Evidence of Malnutrition Exists Yes Malnutrition (severe): Acute Illness/Injury Evidenced By Suboptimal Energy Intake ( Severe),Weight Loss (Severe) Clinical Problem Acute Disease or Injury Related Malnutrition Etiology severe, acute malnutrition related to inadequate energy intake w/ acute hospitalizations, nausea/ emesis, swallowing difficulty Signs/Symptoms as evidenced by unintentional wt loss 17% x 3 months, 6% wt loss x 1 month; estimated PO intake meeting <75% of estimated energy needs >3 months Status Active Problem Recommendation Dietitian Recommendations/Changes will adjust diet to regular and add ensure compact BID w/ meals; [employer] consult, texture/ consistency modifications per [employer] as needed. Lab / Micro Data 05/12/23 05:15 05/12/23 05:15 Labs: Laboratory Results - last 24 hr 05/12/23 05:15: WBC 7.1, RBC 2.95 L, Hgb 8.4 L, Hct 27.5 L, MCV 93.2, MCH 28.5, MCHC 30.5 L, RDW Std Deviation 53.8 H, RDW Coeff of Abdiel 15.8 H, Plt Count 275, MPV 9.8, Immature Gran % (Auto) 0.300, Neut % (Auto) 75.7 H, Lymph % (Auto) 9.0 L, [place] % (Auto) 14.0 H, Eos % (Auto) 0.4, Baso % (Auto) 0.6, Absolute Neuts (auto) 5.4, Absolute Lymphs (auto) 0.64 L, Nucleated RBC % 0, PT 25.3 H, INR 2.3, Sodium 140, Potassium 3.3 L, Chloride 110 H, Carbon Dioxide 24.0, Anion Gap 6, BUN 11, Creatinine 0.98, Estim Creat Clear Calc 89.07, Est GFR (MDRD) Af Amer 97, Est GFR (MDRD) Non-Af 80, BUN/Creatinine Ratio 11.2, Glucose 91, Calcium 9.2 Micro: Microbiology 05/09/23 15:45 Blood Culture (Wb) - Anticubital Right Blood Culture - Preliminary No growth in 48 hours. 05/09/23 15:29 Blood Culture (Wb) - Right Hand Blood Culture - Preliminary No growth in 48 hours. 05/09/23 16:54 Urine Catheter - Catheter Urine Culture - Final Pseudomonas aeruginosa 05/09/23 15:45 Mucosa - Nose SARS-CoV-2, Influenza & RSV (PCR) - Final Radiography Diagnostic Testing: Radiology Impression Abdomen CT 05/11/23 14:59 IMPRESSION: Suspect acute cholecystitis and correlation with right upper quadrant ultrasound is recommended. Electronically Signed: Devin Ross MD at 20:32 EST , ADDENDUM: 05/11/232106 IMPRESSION: Suspect acute cholecystitis and correlation with right upper quadrant ultrasound is recommended. N.B. : The above Results were Read Back by Devin Ross MD to Nerissa Kiser MD, and understanding confirmed on 05/11/2023 21:00:12 (ET). Electronically Signed: Devin Ross MD at 20:32 EST Reading Location ID and State: [id number] / [employer] Tel , Service support , Gallbladder Ultrasound 05/11/23 21:03 IMPRESSION: Suspect acute cholecystitis with cholelithiasis and gallbladder wall thickening. Electronically Signed: Devin Ross MD at 22:35 EST Reading Location ID and State: [id number] / [employer] Tel , Service support , ADDENDUM: 05/11/23 2253 IMPRESSION: Suspect acute cholecystitis with cholelithiasis and gallbladder wall thickening. N.B. : The above Results were Read Back by Devin Ross MD to CHUY Garcia RN, and understanding confirmed on 05/11/2023 22:46:20 (ET). Electronically Signed: Devin Ross MD at 22:35 EST Reading Location ID and State: [id number] / [employer] Tel , Service support , Physical Exam Narrative Seen and examined. CT abdomen/pelvis shows colonic fecal matter and patient had 3 bowel movements with the stool softeners and Dulcolax given. CT abdomen/pelvis and right upper quadrant sonogram shows acute cholecystitis with multiple gallstones but patient does not have abdominal pain. Patient improved. Blood pressure systolic 150s. Sepsis is resolved. No fever. Physical exam General: Alert, Oriented x3, Cooperative HEENT: Atraumatic, PERRLA, EOMI, Normocephalic Oral: Oral mucosa dry. No Gingival or Mucosal Lesions/ Ulcerations Neck: Supple, No JVD, Negative Carotid Bruits Chest wall/Lungs: Air entry diminished in bilateral lung bases. No crepitatio n/rhonchi Cardiovascular: A-fib, irregular rhythm, Normal S1, Normal S2, No M/G/R Abdomen: Bowel Sounds Present, Soft, Non Tender, Non-Distended. No Peter sign or GB palpable : No dysuria. No renal angle tenderness. No suprapubic tenderness. Extremities: No edema, Capillary Refill Less than 3 Seconds Skin: No rashes, No breakdown Musculoskeletal: Weakness, chronic of lower extremities, 4/5 at hips and knee joints. Right TKR. Chronic mild tenderness present. Neurological: Cranial nerves II-XII grossly intact, DTR 2+/4. No acute focal neurological deficit. Psych/Mental Status: Flat affect. Assessment & Plan Assessment/Plan (1) Sepsis: QUALIFIERS: Sepsis type: sepsis due to unspecified organism Sepsis acute organ dysfunction status: unspecified Qualified Code(s): A41.9 - Sepsis, unspecified organism (2) TEODORO (acute kidney injury): (3) Chest pain: PLAN: Plan 72-year-old gentleman was admitted with chest discomfort around noon time from [facility] but it was felt that he has a chronic chest discomfort and is on Ranexa on home medication. He also had recent hospitalization in April for intractable back pain from epidural abscess from where he was discharged to SNF with Adams catheter. Adams catheter was removed yesterday. Patient is stated that he could not get warmth and was found hypotensive in the ED and clinical diagnosis of sepsis was made 1. Sepsis secondary to suspected urinary tract infection: Patient is admitted to ICU. -Patient has leukocytosis, lactic acidosis, TEODORO, hypotension--> meets criteria per SEP 1. Lactic acidosis 3.7. Repeat 1 normal. -Fluid boluses given at 30 cc/kg body weight due to hypotension--> total of 4 L -Patient did not require pressors. Fluid responsive hypotension. -Blood and urine cultures were obtained the emergency department -Continue cefepime and vancomycin due to frequent hospitalizations and instrumentation -ID has been consulted 05/10: Blood culture x 2 negative for 48 hours. Urine culture shows Pseudomonas aeruginosa more than thousand colonies, resistant to piperacillin/tazobactam. Patient on IV cefepime ID consult requested. Discontinue vancomycin. Patient recommended 4 more days of ciprofloxacin. Patient did not move bowel since 05/04. Patient large body therefore x-ray wound be appropriate therefore CT abdomen/pelvis with oral contrast only ordered. Patient given Dulcolax 10 mg oral 1 dose. MiraLAX ordered. Patient already on senna S. Will cancel the d ischarge today. 05/11: Patient afebrile. CT abdomen shows multiple gallbladder stones and features of acute gastritis with GB wall thickening and stranding of surrounding fat similar. Liver normal. RUQ sonogram shows normal distended gallbladder with GB wall 5 mm. No pericholecystic fluid or Peter sign. Multiple GB stones. HIDA scan is ordered. Patient does not have abdominal pain. Surgery is consulted. Liver chemistry shows chronically elevated alkaline phosphatase although improving. ALT AST normal although ALT is low. TB normal. Repeat liver chemistry today Chest pain -Patient does have a history of coronary disease -Initial troponin was unremarkable at 27 with repeat pending -EKG shows chronic atrial fibrillation without any ST-T wave changes concerning for acute ischemia -Patient is on Ranexa at home so we will continue 05/10: With 3 serial troponins negative, ACS ruled out. TEODORO -Suspect related to decreased perfusion from hypotension however patient did just have Adams removed -Bladder scan as needed -IV fluids as noted above -Keep maps greater than 65 05/10: BUNs/creatinine 12.13. Hypotension -Secondary to the above -Baseline appears to run in the 140s to 150s systolic -89 on presentation -Fluid boluses as above 05/10: Patient blood pressure is on the higher side. Resume metoprolol and isosorbide mononitrate. Recent epidural abscess/osteomyelitis of lumbar spine -Patient has completed oral antibiotics however it does appear he is still on amoxicillin despite him telling me his completed antibiotics -Continue home amoxicillin--> cefepime should cover but I do not want to get this lost if cefepime discontinued depending on culture results -Not currently having any back pain -Monitor clinically with low threshold for imaging if back pain develops LILI -Continue home CPAP CAD/HTN/HPL - reports he had a stent in February -Continue Plavix and Coumadin -Continue high-dose atorvastatin -Hold antihypertensives due to hypotension on presentation -Continue home Ranexa GERD with history of GI bleed -Continue twice daily PPI -Continue Carafate Chronic atrial fibrillation -Patient is in rate controlled A-fib at this time -Hold metoprolol for now due to hypotension but low threshold to reinitiate if blood pressure stabilizes to avoid tachycardia -Warfarin dose increased to 5 mg daily. Patient not get warfarin yesterday therefore give 1 now follow INR 05/10: Today INR is 1.9. Continue warfarin 5 mg daily. BPH with obstruction -Patient had urinary retention postoperatively and had Adams removed after about 4 weeks today at [facility]. -Follow for urine output -Continue home Flomax -Bladder scan as needed Patient is very incontinent Polyarthritis -Continue home hydroxychloroquine Depression -Continue home citalopram Debility -PT/OT consultation -Patient will need to be discharged back to skilled facility once medically stabilized Morbid obesity -BMI is 42.1 -Recommend weight loss -Complicates treatment, prognosis, outcomes DVT prophylaxis -INR is subtherapeutic at 1.7 -Will give subcu heparin 3 times daily until INR is therapeutic 05/10: INR increased to 1.9. Warfarin was increased to 5 mg on 05/10. CODE STATUS Full code Microbiology Past 72 Hours 05/09/23 16:54 Urine Catheter - Catheter Urine Culture - Final Pseudomonas aeruginosa 05/09/23 15:45 Mucosa - Nose SARS-CoV-2, Influenza & RSV (PCR) - Final Laboratory Results 05/09/23 16:54: Urine Color Red, Urine Clarity Turbid, Urine pH 5.0, Ur Specific [place] 1.020, Urine Protein 500 H, Urine Glucose (UA) Normal, Urine Ketones 15 H, Urine Occult Blood 250 H, Urine Nitrite Negative, Urine Bilirubin 1 H, Urine Urobilinogen Normal, Ur Leukocyte Esterase 500 H, Urine RBC 25-50 SEEN, Urine WBC 25-50 SEEN, Ur Squamous Epith Cells 0 SEEN, Urine Bacteria 2+, Urine Mucus 0 SEEN 05/10/23 14:15: PT 20.8 H, INR 1.8 05/11/23 03:55: WBC 7.0, RBC 2.93 L, Hgb 8.4 L, Hct 27.7 L, MCV 94.5 H, MCH 28.7, MCHC 30.3 L, RDW Std Deviation 54.7 H, RDW Coeff of Abdiel 15.8 H, Plt Count 273, MPV 9.6, Immature Gran % (Auto) 0.400, Neut % (Auto) 74.7 H, Lymph % (Auto) 8.1 L, [place] % (Auto) 14.8 H, Eos % (Auto) 1.6, Baso % (Auto) 0.4, Absolute Neuts (auto) 5.2, Absolute Lymphs (auto) 0.56 L, Nucleated RBC % 0, PT 22.0 H, INR 1.9, Sodium 141, Potassium 3.4 L, Chloride 111 H, Carbon Dioxide 24.0, Anion Gap 6, BUN 12, Creatinine 1.13, Estim Creat Clear Calc 77.38, Est GFR (MDRD) Af Amer 82, Est GFR (MDRD) Non-Af 68, BUN/Creatinine Ratio 10.6, Glucose 96, Calcium 9.2 Charges/Coding Visit Charges Inpatient E&M: 95928 Subs Hosp L2
--- NOTE | 2023-05-12 11:50 | CASEMGMT ---
Social Work Updates sent to [facility] via [employer]. MARTINEZ Gonzalez
[2023-05-12 12:06] LABS: AST(SGOT) 19 U/L (15-37); Alanine Aminotransfer ALT/SGPT 8 U/L (16-61); Alkaline Phosphatase 91 U/L (45-117); Bilirubin, Direct 0.16 mg/dL (0.00-0.30); Globulin 4.2 g/dL (2.2-4.2); Protein, Total 6.2 g/dL (6.4-8.2)
[2023-05-12] MEDS: Isosorbide Mononitrate 60 MG Tablet PO ×2 (16:33→21:19)
[2023-05-12] MEDS: Clopidogrel Bisulfate 75 MG Tablet PO (16:37)
[2023-05-12] MEDS: Metoprolol(XL)Succ 50 MG Tablet PO ×2 (16:40→21:19)
[2023-05-12] MEDS: Heparin Injection (Vial) 5,000 UNIT/ML VIAL 5000 UNIT SC ×2 (16:49→21:20)
[2023-05-12] MEDS: Citalopram 20 MG Tablet PO (16:52)
[2023-05-12] MEDS: Tamsulosin HCl 0.4 MG Capsule PO (16:53)
[2023-05-12] MEDS: Sucralfate 1 GM Tablet PO ×2 (16:55→21:20)
--- NOTE | 2023-05-12 18:51 | PN_ITS ---
Progress Note Patient's HIDA scan was positive however patient symptoms he denies any abdominal pain after eating or really nausea or vomiting. His main complaint is when he goes to swallow some dysphagia depending on the texture of the food and has to vomit due to this. Patient is on Nexium but states he is never had an EGD. Patient did have a stent placed March 07 at [facility] and is on Plavix for this. Patient is also on Coumadin which is currently being held. Discussed with patient's family that without having the symptoms after eating unsure if jumping to a cholecystostomy tube would risk due to his blood thinners is completely necessary. We are unable to do a cholecystostomy tube over the weekend anyhow unsure if the radiologist would do it on Plavix as well. Patient and his are agreeable with doing a regular diet and seeing how that goes. Did talk with Dr. Amin to recommend patient have GI consulted for an EGD as I think that is a big part of his issue. Sounds like patient has not been eating really fatty foods because he is unable to swallow them only really has soft yogurt, Jell-O at home per patient and his . So question if the HIDA scan could be false positive because of his previous diet. Discussed with patient and his that if he does have issues after eating would recommend getting a cholecystostomy tube or transfer to tertiary care [facility] for possible laparoscopic cholecystectomy.
[2023-05-12] MEDS: Pantoprazole Sodium 40 MG in 0.9% Normal Saline (100mL MB+) 100 ML 330 MG IV (19:54)
[2023-05-12] MEDS: Mirtazapine 15 MG Tablet PO (21:19)
[2023-05-12] MEDS: Ranolazine 500 MG Tablet PO (21:19)
[2023-05-12] MEDS: Atorvastatin Calcium 80 MG Tablet PO (21:19)
[2023-05-12] MEDS: Hydroxychloroquine 200 MG Tablet PO (21:19)
[2023-05-13] VITALS (8 sets, daily range): BP systolic 116–144; BP diastolic 60–71; PULSE 56–69; RESP 12–15; TEMP 36.4–36.6; O2SAT 94–99; BMI 38.6
[2023-05-13 03:22] LABS: Absolute Lymphocyte Count 0.84 X10^3/uL (0.83-4.51); Absolute Neutrophil Count 5.4 X10^3/uL (2.0-7.7); Basophil# 0.05 X10^3/uL; Basophil% 0.7 % (0-1); Eosinophil# 0.06 X10^3/uL; Eosinophils% 0.8 % (0-5); Hematocrit 25.4 % (40-54); Hemoglobin 7.9 g/dL (13.0-16.5); Lymphocyte # 0.84 X10^3/ul (0.83-4.51); Lymphocyte % 11.4 % (19-41); Mean Corp Hgb Conc 31.1 g/dL (32-36); Mean Corpuscular Hgb 28.8 pg (27.0-32.0); Mean Corpuscular Volume 92.7 fL (80-94); Mean Platelet Vol. 9.8 fl (6.2-12.0); Monocyte# 1.02 X10^3/uL; Monocyte% 13.8 % (0-10); NRBC Flagged by Analyzer 0 % (0-5); Neutrophil # 5.39 X10^3/uL (2.7-7.7); Neutrophil % 72.8 % (47-70); Platelet Count 271 K/mm3 (150-450); RBC Distribution Width SD 54.4 fl (35.1-43.9); Red Blood Count 2.74 M/mm3 (4.6-6.2); White Blood Count 7.4 K/mm3 (4.4-11.0)
[2023-05-13 03:50] LABS: International Normalized Ratio 2.5; Prothrombin Time (Protime)PT. 26.5 SECONDS (11.7-14.9)
[2023-05-13 03:52] LABS: AST(SGOT) 17 U/L (15-37); Alanine Aminotransfer ALT/SGPT 8 U/L (16-61); Albumin, Serum 1.9 g/dL (3.2-5.0); Alkaline Phosphatase 82 U/L (45-117); Anion Gap 7 (5-15); BUN 11 mg/dL (7-18); BUN/Creat Ratio 10.9 RATIO (10-20); Bilirubin, Direct 0.15 mg/dL (0.00-0.30); Calcium,Total 9.1 mg/dL (8.5-10.1); Chloride 109 mmol/L (98-107); Creatinine, Serum 1.01 mg/dL (0.70-1.30); EST Glomerular Filtration Rate 78 mL/min (>60); Est Glom Filt Rate - Afr Amer 94 mL/min (>60); Estimated Creatinine Clearance 86.42 ml/min; Globulin 3.9 g/dL (2.2-4.2); Glucose 94 mg/dL (74-106); Potassium 3.2 mmol/L (3.5-5.1); Protein, Total 5.8 g/dL (6.4-8.2); Sodium Level 139 mmol/L (136-145)
[2023-05-13] MEDS: Cefepime HCl 2 GM in 0.9% Normal Saline (100mL MB+) 100 ML IV ×3 (05:59→21:59)
[2023-05-13] MEDS: 0.9% Saline Lock 10 ML Syringe IV ×3 (06:00→12:56)
[2023-05-13] MEDS: Heparin Injection (Vial) 5,000 UNIT/ML VIAL 5000 UNIT SC ×3 (06:00→21:08)
--- NOTE | 2023-05-13 08:24 | PCM.PN.HOSP ---
Reason for Visit Reason for Visit: Diagnoses Sepsis, unspecified organism (05/09/23) Elevated white blood cell count, unspecified (05/09/23) Acidosis, unspecified (05/09/23) Other specified diseases of gallbladder (05/09/23) Discitis, unspecified, lumbar region (05/09/23) Acute kidney failure, unspecified (05/09/23) Urinary tract infection, site not specified (05/09/23) Chest pain, unspecified (05/09/23) Abnormal coagulation profile (05/09/23) Objective Data Objective Data Vital Signs: Vital Signs Temp Pulse Resp BP Pulse Ox O2 Del Method FiO2 97.7 F L 62 15 116/71 94 CPAP 21 05/13/23 03:00 05/13/23 03:52 05/13/23 03:52 05/13/23 03:00 05/13/23 03:52 05/13/23 05:00 05/13/23 03:52 Oxygen Delivery Method CPAP Weight: 261 lb 0.437 oz Body Mass Index (BMI) 38.6 Intake & Output: Intake and Output for Last 24 Hours 05/11/23 05/12/23 05/14/23 23:59 23:59 00:59 Intake Total 1604 / 1604 2342.75 / 2342.75 200 / 200 Output Total 3150 / 3150 1300 / 1300 350 / 350 Balance -1546 / -1546 1042.75 / 1042.75 -150 / -150 Medical Nutrition Assessment Dietitian: Malnutrition Criteria Met Start: 05/10/23 10:04 Freq: Status: Active Protocol: Document 05/10/23 10:05 (Rec: 05/10/23 10:05 Desktop) Nutrition Malnutrition Evidence of Malnutrition Exists Yes Malnutrition (severe): Acute Illness/Injury Evidenced By Suboptimal Energy Intake ( Severe),Weight Loss (Severe) Clinical Problem Acute Disease or Injury Related Malnutrition Etiology severe, acute malnutrition related to inadequate energy intake w/ acute hospitalizations, nausea/ emesis, swallowing difficulty Signs/Symptoms as evidenced by unintentional wt loss 17% x 3 months, 6% wt loss x 1 month; estimated PO intake meeting <75% of estimated energy needs >3 months Status Active Problem Recommendation Dietitian Recommendations/Changes will adjust diet to regular and add ensure compact BID w/ meals; PANEL LAMINATOR consult, texture/ consistency modifications per PANEL LAMINATOR as needed. Lab / Micro Data 05/13/23 03:15 05/13/23 03:15 Labs: Laboratory Results - last 24 hr 05/12/23 05:15: Total Bilirubin 0.40, Direct Bilirubin 0.16, AST 19, ALT 8 L, Alkaline Phosphatase 91, Total Protein 6.2 L, Albumin 2.0 L, Globulin 4.2 05/13/23 03:15: WBC 7.4, RBC 2.74 L, Hgb 7.9 L, Hct 25.4 L, MCV 92.7, MCH 28.8, MCHC 31.1 L, RDW Std Deviation 54.4 H, RDW Coeff of Abdiel 16.0 H, Plt Count 271, MPV 9.8, Immature Gran % (Auto) 0.500, Neut % (Auto) 72.8 H, Lymph % (Auto) 11.4 L, [place] % (Auto) 13.8 H, Eos % (Auto) 0.8, Baso % (Auto) 0.7, Absolute Neuts (auto) 5.4, Absolute Lymphs (auto) 0.84, Nucleated RBC % 0, PT 26.5 H, INR 2.5, Sodium 139, Potassium 3.2 L, Chloride 109 H, Carbon Dioxide 23.0, Anion Gap 7, BUN 11, Creatinine 1.01, Estim Creat Clear Calc 86.42, Est GFR (MDRD) Af Amer 94, Est GFR (MDRD) Non-Af 78, BUN/Creatinine Ratio 10.9, Glucose 94, Calcium 9.1, Total Bilirubin 0.40, Direct Bilirubin 0.15, AST 17, ALT 8 L, Alkaline Phosphatase 82, Total Protein 5.8 L, Albumin 1.9 L, Globulin 3.9 Micro: Microbiology 05/09/23 15:45 Blood Culture (Wb) - Anticubital Right Blood Culture - Preliminary No growth in 48 hours. 05/09/23 15:29 Blood Culture (Wb) - Right Hand Blood Culture - Preliminary No growth in 48 hours. 05/09/23 16:54 Urine Catheter - Catheter Urine Culture - Final Pseudomonas aeruginosa 05/09/23 15:45 Mucosa - Nose SARS-CoV-2, Influenza & RSV (PCR) - Final Radiography Diagnostic Testing: Radiology Impression Hepatobiliary Scan Nuclear Medicine 05/12/23 07:30 IMPRESSION: 1. No radiotracer activity of the gallbladder throughout the entire study suggesting cystic duct obstruction. 2. Normal excretion of radiotracer from the liver parenchyma to the biliary tree and small bowel except the gallbladder. Electronically Signed: Juanjo Amin MD at 15:16 EST , Physical Exam Narrative Seen and examined. Patient does not have abdominal pain. CT abdomen/pelvis shows colonic fecal matter and patient had 3 bowel movements with the stool softeners and Dulcolax given. CT abdomen/pelvis and right upper quadrant sonogram shows acute cholecystitis with multiple gallstones. HIDA scan consistent with cystic duct obstruction with no radioactivity found in the gallbladder. Patient improved. Blood pressure systolic 150s. Sepsis is resolved. No fever. Physical exam General: Alert, Oriented x3, Cooperative HEENT: Atraumatic, PERRLA, EOMI, Normocephalic Oral: Oral mucosa dry. No Gingival or Mucosal Lesions/ Ulcerations Neck: Supple, No JVD, Negative Carotid Bruits Chest wall/Lungs: Air entry diminished in bilateral lung bases. No crepitation/rhonchi Cardiovascular: A-fib, irregular rhythm, Normal S1, Normal S2, No M/G/R Abdomen: Bowel Sounds Present, Soft, Non Tender, Non-Distended. No Peter sign or GB palpable : No dysuria. No renal angle tenderness. No suprapubic tenderness. Extremities: No edema, Capillary Refill Less than 3 Seconds Skin: No rashes, No breakdown Musculoskeletal: Weakness, chronic of lower extremities, 4/5 at hips and knee joints. Right TKR. Chronic mild tenderness present. Neurological: Cranial nerves II-XII grossly intact, DTR 2+/4. No acute focal neurological deficit. Psych/Mental Status: Flat affect. Assessment & Plan Assessment/Plan (1) Sepsis: QUALIFIERS: Sepsis acute organ dysfunction status: unspecified Sepsis type: sepsis due to unspecified organism Qualified Code(s): A41.9 - Sepsis, unspecified organism (2) TEODORO (acute kidney injury): (3) Chest pain: PLAN: Plan 72-year-old gentleman was admitted with chest discomfort around noon time from [facility] but it was felt that he has a chronic chest discomfort and is on Ranexa on home medication. He also had recent hospitalization in April for intractable back pain from epidural abscess from where he was discharged to SNF with Adams catheter. Adams catheter was removed yesterday. Patient is stated that he could not get warmth and was found hypotensive in the ED and clinical diagnosis of sepsis was made 1. Sepsis secondary to suspected urinary tract infection: Patient is admitted to ICU. -Patient has leukocytosis, lactic acidosis, TEODORO, hypotension--> meets criteria per SEP 1. Lactic acidosis 3.7. Repeat 1 normal. -Fluid boluses given at 30 cc/kg body weight due to hypotension--> total of 4 L -Patient did not require pressors. Fluid responsive hypotension. -Blood and urine cultures were obtained the emergency department -Continue cefepime and vancomycin due to frequent hospitalizations and instrumentation -ID has been consulted 05/10: Blood culture x 2 negative for 48 hours. Urine culture shows Pseudomonas aeruginosa more than thousand colonies, resistant to piperacillin/tazobactam. Patient on IV cefepime ID consult requested. Discontinue vancomycin. Patient recommended 4 more days of ciprofloxacin. Patient did not move bowel since 05/04. Patient large body therefore x-ray wound be appropriate therefore CT abdomen/pelvis with oral contrast only ordered. Patient given Dulcolax 10 mg oral 1 dose. MiraLAX ordered. Patient already on senna S. Will cancel the discharge today. 05/11: Patient afebrile. CT abdomen shows multiple gallbladder stones and features of acute gastritis with GB wall thickening and stranding of surrounding fat similar. Liver normal. RUQ sonogram shows normal distended gallbladder with GB wall 5 mm. No pericholecystic fluid or Peter sign. Multiple GB stones. Patient does not have abdominal pain. Surgery is consulted. Liver chemistry shows chronically elevated alkaline phosphatase although improving. ALT AST normal although ALT is low. TB normal. Repeat liver chemistry today 05/12: HIDA scan shows no gallbladder activity. Radiotracer not found in gallbladder up to 120 minutes and therefore probably cystic duct obstruction. Discussed with the surgeon. Patient does not have abdominal pain. Patient has difficulty in swallowing and was on soft bite sized food but is still feels food stuck in the midesophagus therefore GI consulted for esophageal dysphagia and possible EGD. He states he feels dysphagia after the of April surgery. Denies prior EGD or history of dysphagia or dilatation. Patient also had cardiac stent in March therefore could not come out of Plavix. In view of multiple comorbidities and risk of complication including thromboembolism and cardiac complications and patient not having abdominal pain, observation with wait and watch recommended. Discussed with the surgery and the patient in detail. Chest pain -Patient does have a history of coronary disease -Initial troponin was unremarkable at 27 with repeat pending -EKG shows chronic atrial fibrillation without any ST-T wave changes concerning for acute ischemia -Patient is on Ranexa at home so we will continue 05/10: With 3 serial troponins negative, ACS ruled out. TEODORO -Suspect related to decreased perfusion from hypotension however patient did just have Adams removed -Bladder scan as needed -IV fluids as noted above -Keep maps greater than 65 05/10: BUNs/creatinine 02/02.13. 05/12: Patient has hypokalemia. Serum magnesium phosphorus normal. IV potassium replacement ordered. Hypotension -Secondary to the above -Baseline appears to run in the 140s to 150s systolic -89 on presentation -Fluid boluses as above 05/10: Patient blood pressure is on the higher side. Resume metoprolol and isosorbide mononitrate. Recent epidural abscess/osteomyelitis of lumbar spine -Patient has completed oral antibiotics however it does appear he is still on amoxicillin despite him telling me his completed antibiotics -Continue home amoxicillin--> cefepime should cover but I do not want to get this lost if cefepime discontinued depending on culture results -Not currently having any back pain -Monitor clinically with low threshold for imaging if back pain develops LILI -Continue home CPAP CAD/HTN/HPL - reports he had a stent in February -Continue Plavix and Coumadin -Continue high-dose atorvastatin -Hold antihypertensives due to hypotension on presentation -Continue home Ranexa GERD with history of GI bleed -Continue twice daily PPI -Continue Carafate 05/12: Hemoglobin low severe anemia 7.9 slowly decreased from 8.4. Platelet count normal. Continue twice daily PPI changed from oral to IV. Reticulocyte panel shows increased immature reticulocyte fraction suggestive of reactive bone marrow. Iron study shows low iron, low TIBC saturation normal and ferritin high suggestive of anemia of chronic disease. Chronic atrial fibrillation -Patient is in rate controlled A-fib at this time -Hold metoprolol for now due to hypotension but low threshold to reinitiate if blood pressure stabilizes to avoid tachycardia -Warfarin dose increased to 5 mg daily. Patient not get warfarin yesterday therefore give 1 now follow INR 05/10: Today INR is 1.9. Continue warfarin 5 mg daily. 05/12 INR is 2.5 therefore hold warfarin. BPH with obstruction -Patient had urinary retention postoperatively and had Adams removed after about 4 weeks today at [facility] [place]. -Follow for urine output -Continue home Flomax -Bladder scan as needed Patient is very incontinent Polyarthritis -Continue home hydroxychloroquine Depression -Continue home citalopram Debility -PT/OT consultation -Patient will need to be discharged back to skilled facility once medically stabilized Morbid obesity -BMI is 42.1 -Recommend weight loss -Complicates treatment, prognosis, outcomes DVT prophylaxis -INR is subtherapeutic at 1.7 -Will give subcu heparin 3 times daily until INR is therapeutic 05/10: INR increased to 1.9. Warfarin was increased to 5 mg on 05/10. CODE STATUS Full code Microbiology Past 72 Hours 05/09/23 16:54 Urine Catheter - Catheter Urine Culture - Final Pseudomonas aeruginosa 05/09/23 15:45 Mucosa - Nose SARS-CoV-2, Influenza & RSV (PCR) - Final Laboratory Results 05/09/23 16:54: Urine Color Red, Urine Clarity Turbid, Urine pH 5.0, Ur Specific [place] 1.020, Urine Protein 500 H, Urine Glucose (UA) Normal, Urine Ketones 15 H, Urine Occult Blood 250 H, Urine Nitrite Negative, Urine Bilirubin 1 H, Urine Urobilinogen Normal, Ur Leukocyte Esterase 500 H, Urine RBC 25-50 SEEN, Urine WBC 25-50 SEEN, Ur Squamous Epith Cells 0 SEEN, Urine Bacteria 2+, Urine Mucus 0 SEEN 05/10/23 14:15: PT 20.8 H, INR 1.8 05/11/23 03:55: WBC 7.0, RBC 2.93 L, Hgb 8.4 L, Hct 27.7 L, MCV 94.5 H, MCH 28.7, MCHC 30.3 L, RDW Std Deviation 54.7 H, RDW Coeff of Abdiel 15.8 H, Plt Count 273, MPV 9.6, Immature Gran % (Auto) 0.400, Neut % (Auto) 74.7 H, Lymph % (Auto) 8.1 L, [place] % (Auto) 14.8 H, Eos % (Auto) 1.6, Baso % (Auto) 0.4, Absolute Neuts (auto) 5.2, Absolute Lymphs (auto) 0.56 L, Nucleated RBC % 0, PT 22.0 H, INR 1.9, Sodium 141, Potassium 3.4 L, Chloride 111 H, Carbon Dioxide 24.0, Anion Gap 6, BUN 12, Creatinine 1.13, Estim Creat Clear Calc 77.38, Est GFR (MDRD) Af Amer 82, Est GFR (MDRD) Non-Af 68, BUN/Creatinine Ratio 10.6, Glucose 96, Calcium 9.2 Charges/Coding Visit Charges Inpatient E&M: 04132 Subs Hosp L3
--- NOTE | 2023-05-13 09:01 | PCM.PN.SRG ---
Subjective Subjective pt still denies abd pain, miguelito PO denies N/V Objective Data Objective Data Vital Signs: Vital Signs Temp Pulse Resp BP Pulse Ox O2 Del Method FiO2 97.7 F L 62 15 116/71 94 CPAP 21 05/13/23 03:00 05/13/23 03:52 05/13/23 03:52 05/13/23 03:00 05/13/23 03:52 05/13/23 05:00 05/13/23 03:52 Oxygen Delivery Method CPAP Weight: 261 lb 0.437 oz Body Mass Index (BMI) 38.6 Intake & Output: Intake and Output for Last 24 Hours 05/11/23 05/12/23 05/14/23 23:59 23:59 00:59 Intake Total 1604 / 1604 2342.75 / 2342.75 200 / 200 Output Total 3150 / 3150 1300 / 1300 350 / 350 Balance -1546 / -1546 1042.75 / 1042.75 -150 / -150 Medical Nutrition Assessment Dietitian: Malnutrition Criteria Met Start: 05/10/23 10:04 Freq: Status: Active Protocol: Document 05/10/23 10:05 AG (Rec: 05/10/23 10:05 AG Desktop) Nutrition Malnutrition Evidence of Malnutrition Exists Yes Malnutrition (severe): Acute Illness/Injury Evidenced By Suboptimal Energy Intake ( Severe),Weight Loss (Severe) Clinical Problem Acute Disease or Injury Related Malnutrition Etiology severe, acute malnutrition related to inadequate energy intake w/ acute hospitalizations, nausea/ emesis, swallowing difficulty Signs/Symptoms as evidenced by unintentional wt loss 17% x 3 months, 6% wt loss x 1 month; estimated PO intake meeting <75% of estimated energy needs >3 months Status Active Problem Recommendation Dietitian Recommendations/Changes will adjust diet to regular and add ensure compact BID w/ meals; GLASS CRUSHER consult, texture/ consistency modifications per GLASS CRUSHER as needed. Lab / Micro Data 05/13/23 03:15 05/13/23 03:15 Labs: Laboratory Results - last 24 hr 05/12/23 05:15: Total Bilirubin 0.40, Direct Bilirubin 0.16, AST 19, ALT 8 L, Alkaline Phosphatase 91, Total Protein 6.2 L, Albumin 2.0 L, Globulin 4.2 05/13/23 03:15: WBC 7.4, RBC 2.74 L, Hgb 7.9 L, Hct 25.4 L, MCV 92.7, MCH 28.8, MCHC 31.1 L, RDW Std Deviation 54.4 H, RDW Coeff of Abdiel 16.0 H, Plt Count 271, MPV 9.8, Immature Gran % (Auto) 0.500, Neut % (Auto) 72.8 H, Lymph % (Auto) 11.4 L, [place] % (Auto) 13.8 H, Eos % (Auto) 0.8, Baso % (Auto) 0.7, Absolute Neuts (auto) 5.4, Absolute Lymphs (auto) 0.84, Nucleated RBC % 0, PT 26.5 H, INR 2.5, Sodium 139, Potassium 3.2 L, Chloride 109 H, Carbon Dioxide 23.0, Anion Gap 7, BUN 11, Creatinine 1.01, Estim Creat Clear Calc 86.42, Est GFR (MDRD) Af Amer 94, Est GFR (MDRD) Non-Af 78, BUN/Creatinine Ratio 10.9, Glucose 94, Calcium 9.1, Total Bilirubin 0.40, Direct Bilirubin 0.15, AST 17, ALT 8 L, Alkaline Phosphatase 82, Total Protein 5.8 L, Albumin 1.9 L, Globulin 3.9 Micro: Microbiology 05/09/23 15:45 Blood Culture (Wb) - Anticubital Right Blood Culture - Preliminary No growth in 48 hours. 05/09/23 15:29 Blood Culture (Wb) - Right Hand Blood Culture - Preliminary No growth in 48 hours. 05/09/23 16:54 Urine Catheter - Catheter Urine Culture - Final Pseudomonas aeruginosa 05/09/23 15:45 Mucosa - Nose SARS-CoV-2, Influenza & RSV (PCR) - Final Radiography Diagnostic Testing: Radiology Impression Hepatobiliary Scan Nuclear Medicine 05/12/23 07:30 IMPRESSION: 1. No radiotracer activity of the gallbladder throughout the entire study suggesting cystic duct obstruction. 2. Normal excretion of radiotracer from the liver parenchyma to the biliary tree and small bowel except the gallbladder. Electronically Signed: Juanjo Amin MD at 15:16 EST , Physical Exam Const oriented x3 and no apparent distress Resp normal respiratory effort Cardio regular rate GI soft to palpation and non-tender Inspection: Negative for abdominal distention Assessment & Plan Assessment/Plan (1) Thickening of wall of gallbladder: PLAN: Plan Currently continuing conservative measures patient does not have abdominal pain or nausea or vomiting 30 minutes to an hour after eating-- he may have some vomiting but this is due to things not going down his esophagus. Patient never had an EGD?GI consulted. Will continue to monitor patient does have pain after eating or nausea and vomiting discussed placing a cholecystostomy tube. However patient's cardiac stent was in March thus he would not be able to come off the Plavix. Jennifer Nguyễn M.D. Pager: [phone] [facility] [address] [place] [address], [facility], [address] [place] [address] Office: [phone] Charges/Coding Visit Charges Inpatient E&M: 93908 Subs Hosp L2
[2023-05-13 09:15] LABS: Magnesium 1.9 mg/dL (1.6-2.6); Phosphorus 2.8 mg/dL (2.5-4.9)
[2023-05-13] MEDS: Sucralfate 1 GM Tablet PO ×4 (09:20→21:08)
[2023-05-13] MEDS: Folic Acid 1 MG Tablet PO (09:24)
[2023-05-13] MEDS: Citalopram 20 MG Tablet PO (09:29)
[2023-05-13] MEDS: Metoprolol(XL)Succ 50 MG Tablet PO ×2 (10:14→21:14)
[2023-05-13] MEDS: Polyethylene Glycol 3350 17 GM PACKET PO (10:16)
[2023-05-13] MEDS: Isosorbide Mononitrate 60 MG Tablet PO ×2 (10:17→21:10)
[2023-05-13] MEDS: Ensure Plus High Protein 120 ML LIQUID PO ×2 (10:18→17:05)
[2023-05-13] MEDS: Clopidogrel Bisulfate 75 MG Tablet PO (10:18)
[2023-05-13] MEDS: Pantoprazole Sodium 40 MG in 0.9% Normal Saline (100mL MB+) 100 ML 330 MG IV ×2 (10:19→21:59)
[2023-05-13] MEDS: Hydroxychloroquine 200 MG Tablet PO ×2 (10:25→21:10)
[2023-05-13] MEDS: Ranolazine 500 MG Tablet PO ×2 (10:26→21:10)
[2023-05-13] MEDS: Tamsulosin HCl 0.4 MG Capsule PO (10:29)
[2023-05-13 10:54] LABS: RET-HE 31.4 pg (30-35); Reticulocyte Count 1.47 % (0.5-1.5)
[2023-05-13 11:06] LABS: Ferritin 638 ng/mL (26-388); Iron 48 ug/dL (65-175); Iron Binding Capacity,Total 150 ug/dL (250-450)
[2023-05-13] MEDS: Potassium Chloride 10mEq/100mL 10 MEQ/100 ML IV.SOLN. 100 MEQ IV BOLUS ×4 (11:43→17:03)
[2023-05-13] MEDS: Miconazole Nitrate 43 GM Bottle 1 APPLIC TOPICAL (11:43)
[2023-05-13] MEDS: Sodium Ferric Gluconat/Sucrose 250 MG in 0.9% Normal Saline (250mL Bag) 250 ML 135 MG IV (12:53)
--- NOTE | 2023-05-13 13:31 | EX.PCM.CON.G ---
HPI Consult Data Date of Consult: 05/13/23 HPI Narrative Reason for Consultation: Dysphagia HPI Narrative: GUSTAVO HARTMAN, is a 72 M who presented to the emergency department on May 08 from his alf facility with chest discomfort. The patient has a history of chronic chest discomfort and is on Ranexa as an outpatient. He had a recent hospitalization at the beginning of April for intractable back pain with an epidural abscess. Following his hospitalization he was sent to the alf facility with a Adams catheter in place. His Adams was apparently removed yesterday. The patient does report a history of sleep apnea, for which he has been compliant with use of nocturnal CPAP therapy. He currently denies any specific complaints. On presentation to the emergency department, the patient was documented to be afebrile with a presenting blood pressure of 89/55 mmHg. Laboratory evaluation revealed a white blood cell count of 14,000. Chemistry profile was notable for a creatinine of 1.9 with a lactate of 3.7. Urine analysis was positive for leukocyte esterase and 2+ urine bacteria. Chest x-ray demonstrated no acute cardiopulmonary process. Blood and urine cultures were obtained. The patient received supplemental IV fluid hydration and was initiated on antimicrobials. He was subsequently admitted to the medical intensive care unit for further management. He also had recent admition for T11-L1 ecoli osteo/discitis with phlegmon. He was admitted here and to [facility], completed course with IV ceftriaxone, then put on po amox for suppression. Admitted 05/08 from facility with several days n/v, fever, confusion, vision changes. Admitted here on cefepime, rapidly improved. I was asked to see him due to esophageal dysphagia. He also has esophageal dysphagia with solids and sometimes liquids. He denies any chest pain or shortness of breath. He does have history of possible rheumatoid arthritis on hydrochloric when twice a day, history of paroxysmal A-fib on warfarin and history of CAD status post CABG on aspirin and Plavix. His hemoglobin has been ranging between 8 and 9. [facility] Medical History Ambulates with cane Anemia Anxiety and depression Arthritis Atherosclerotic heart disease of [place] post[place] coronary artery without angina pectoris Atrial fibrillation Chronic UTI CKD (chronic kidney disease), stage III Depression Essential hypertension Former smoker GERD (gastroesophageal reflux disease) Gout History of left heart catheterization (LHC) (~07/29/19) jail (current) use of anticoagulants Morbid obesity LILI on CPAP Paroxysmal atrial fibrillation Polyarthritis Pure hypercholesterolemia Viral syndrome Wears glasses Home Medications citalopram 20 mg tablet 20 mg PO DAILY MOOD 09/21/14 [History Last Taken 02/16/23] tamsulosin 0.4 mg capsule 0.4 mg PO DAILY bph 05/18/19 [History Last Taken 02/16/23] hydroxychloroquine 200 mg tablet 200 mg PO BID arthritis 04/25/21 [History Last Taken 02/16/23] Handicap Placard #1 ea 07/05/21 [Rx Last Taken Unknown] isosorbide mononitrate 60 mg tablet,extended release 24 hr 60 mg PO BID heart 02/17/23 [History Last Taken 02/16/23] nitroglycerin 0.4 mg sublingual tablet 0.4 mg sublingual Q5M PRN chest pain 02/17/23 [History Last Taken Unknown] clopidogrel 75 mg tablet 75 mg PO DAILY blood thinner 04/11/23 [History Last Taken Unknown] folic acid 1 mg tablet 1 mg PO DAILY vitamin 04/11/23 [History Last Taken Unknown] losartan 50 mg tablet 50 mg PO DAILY bp 04/11/23 [History Last Taken Unknown] ondansetron HCl 4 mg tablet 4 mg PO Q4H PRN nausea 04/11/23 [History Last Taken Unknown] pantoprazole 40 mg tablet,delayed release 40 mg PO Q12H stomach 04/11/23 [History Last Taken Unknown] sucralfate 1 gram tablet 1 g PO 4X/DAY stomach 04/11/23 [History Last Taken Unknown] acetaminophen 500 mg tablet 1,000 mg PO BID 05/09/23 [History Last Taken Unknown] aluminum-mag hydroxide-simethicone 200 mg-200 mg-20 mg/5 mL oral susp (Advanced Antacid-Antigas) 30 ml PO DAILY PRN GERD 05/09/23 [History Last Taken Unknown] amoxicillin 875 mg tablet 875 mg PO Q12H OSTEOMYELITIS 05/09/23 [History Last Taken Unknown] atorvastatin 80 mg tablet 80 mg PO QHS CHOLESTEROL 05/09/23 [History Last Taken Unknown] food supplemt, lactose-reduced 0.06 gram-1 kcal/mL oral liquid (Boost High Protein) 120 ml PO BIDCM 05/09/23 [History Last Taken Unknown] melatonin 3 mg tablet 3 mg PO QHS PRN sleep 05/09/23 [History Last Taken Unknown] metoprolol succinate 50 mg tablet,extended release 24 hr 50 mg PO BID BLOOD PRESSURE 05/09/23 [History Last Taken Unknown] mirtazapine 15 mg tablet 15 mg PO QHS 05/09/23 [History Last Taken Unknown] naloxone 4 mg/actuation nasal spray 4 mg intranasal Q3M PRN opioid overdose 05/09/23 [History Last Taken Unknown] nystatin 100,000 unit/gram topical powder 1 applic topical BID SKIN IRRITATION 05/09/23 [History Last Taken Unknown] oxycodone 5 mg tablet 5 - 10 mg PO Q4H PRN Pain Score 4-6 05/09/23 [History Last Taken Unknown] potassium chloride 20 mEq/15 mL oral liquid 20 meq PO DAILY 05/09/23 [History Last Taken Unknown] ranolazine 500 mg tablet,extended release,12 hr 500 mg PO BID HEART DISEASE 05/09/23 [History Last Taken Unknown] scopolamine base 1 mg over 3 days transdermal patch 1 patch transdermal Q3D PRN nausea and vomiting 05/09/23 [History Last Taken Unknown] sennosides 8.6 mg-docusate sodium 50 mg tablet (Senna with Docusate Sodium) 1 tab-cap PO BID 05/09/23 [History Last Taken Unknown] zinc oxide 20 % topical ointment 1 applic topical BID 05/09/23 [History Last Taken Unknown] bisacodyl 10 mg rectal suppository (Dulcolax (bisacodyl)) 10 mg NM DAILY PRN constipation #30 ea 05/11/23 [Rx Last Taken Unknown] ciprofloxacin HCl 500 mg tablet (Cipro) 500 mg PO BID 4 days #8 tabs 05/11/23 [Rx Last Taken Unknown] cyclobenzaprine 10 mg tablet 10 mg PO Q8H PRN pain 30 days #0 tabs 05/11/23 [Rx Last Taken Unknown] polyethylene glycol 3350 17 gram/dose oral powder (Miralax) 17 g PO DAILY #238 grams 05/11/23 [Rx Last Taken Unknown] warfarin 5 mg tablet (Jantoven) 5 mg PO DINNER #0 tabs 05/11/23 [Rx Last Taken Unknown] Allergy/AdvReac Type Severity Reaction Status Date / Time bee venom protein (honey bee) Allergy Hives Verified 05/09/23 15:12 amlodipine AdvReac Severe severe Verified 05/09/23 15:12 swelling in hands and feet ceftriaxone AdvReac Nausea/Vom/ Verified 05/09/23 21:31 Diarrhea spider venom AdvReac Other Verified 05/09/23 15:12 Family History Father Heart disease Diabetes CAD (coronary artery disease) History of coronary artery bypass surgery Cardiac pacemaker in situ Pure hypercholesterolemia Surgical History H/O umbilical hernia repair History of cystoscopy History of inguinal hernia repair, bilateral History of knee surgery History of total right knee replacement Social History (Updated 05/09/23 @ 18:[address] Noa Leyva DO) housing: penitentiary Smoking Status: Former smoker how long ago did patient quit smokin alcohol intake: never substance use type: does not use caffeine: Yes Type: tea Number of servings: 2 ROS Constitutional Constitutional: Denies anorexia Eyes Eyes: Denies loss of vision ENT HEENT: Reports dysphagia Cardiovascular Cardiovascular: Denies chest pain Respiratory/Chest Respiratory/Chest: Denies shortness of breath at rest Gastrointestinal Gastrointestinal: Denies abdominal pain, diarrhea, nausea or vomiting Musculoskeletal Musculoskeletal: Reports back pain Integumentary Integumentary: Denies rash Neurologic Neurologic: Denies dizziness Psychiatric Psychiatric: Denies anxiety Hematologic/Lymphatic Hematologic/Lymphatic: Reports easy bleeding Physical Exam Narrative Seen and examined. Patient does not have abdominal pain. No acute issues overnight. Patient does not have abdominal pain. Patient is moving bowel. Plan for EGD for dysphagia. CT abdomen/pelvis shows colonic fecal matter and patient had 3 bowel movements with the stool softeners and Dulcolax given. CT abdomen/pelvis and right upper quadrant sonogram shows acute cholecystitis with multiple gallstones. HIDA scan consistent with cystic duct obstruction with no radioactivity found in the gallbladder. Patient improved. Blood pressure systolic 150s. Sepsis is resolved. No fever. Physical exam General: Alert, Oriented x3, Cooperative HEENT: Atraumatic, PERRLA, EOMI, Normocephalic Oral: Oral mucosa dry. No Gingival or Mucosal Lesions/ Ulcerations Neck: Supple, No JVD, Negative Carotid Bruits Chest wall/Lungs: Air entry diminished in bilateral lung bases. No crepitation/rhonchi Cardiovascular: A-fib, irregular rhythm, Normal S1, Normal S2, No M/G/R Abdomen: Bowel Sounds Present, Soft, Non Tender, Non-Distended. No Peter sign or GB palpable : No dysuria. No renal angle tenderness. No suprapubic tenderness. Extremities: No edema, Capillary Refill Less than 3 Seconds Skin: No rashes, No breakdown Musculoskeletal: Weakness, chronic of lower extremities, 4/5 at hips and knee joints. Right TKR. Chronic mild tenderness present. Neurological: Cranial nerves II-XII grossly intact, DTR 2+/4. No acute focal neurological deficit. Psych/Mental Status: Flat affect. Medical Records Data Medical Nutrition Assessment Dietitian: Malnutrition Criteria Met Start: 05/10/23 10:04 Freq: Status: Active Protocol: Document 05/14/23 11:58 [facility] (Rec: 05/14/23 11:58 [facility] [id number]) Nutrition Malnutrition Evidence of Malnutrition Exists Yes Malnutrition (severe): Acute Illness/Injury Evidenced By Suboptimal Energy Intake ( Severe),Weight Loss (Severe) Clinical Problem Acute Disease or Injury Related Malnutrition Etiology severe, acute malnutrition related to inadequate energy intake w/ acute hospitalizations, nausea/ emesis, swallowing difficulty Signs/Symptoms as evidenced by unintentional wt loss 17% x 3 months, 6% wt loss x 1 month correctional officer captain; estimated PO intake meeting <75% of estimated energy needs >3 months correctional officer captain Status Active Problem Recommendation Dietitian Recommendations/Changes Continue liberal regular diet w/ ensure clear w/ medpass; CIVIL TRANSPORTATION ENGINEER consult, texture/ consistency modifications per CIVIL TRANSPORTATION ENGINEER as needed. Lab / Micro Data 05/14/23 02:45 05/14/23 02:45 Labs: Laboratory Results - last 24 hr 05/13/23 10:30: Vitamin B12 744 05/14/23 02:45: WBC 6.7, RBC 2.80 L, Hgb 8.0 L, Hct 26.0 L, MCV 92.9, MCH 28.6, MCHC 30.8 L, RDW Std Deviation 54.0 H, RDW Coeff of Abdiel 15.8 H, Plt Count 257, MPV 9.7, Immature Gran % (Auto) 0.600, Neut % (Auto) 69.9, Lymph % (Auto) 13.7 L, [place] % (Auto) 14.8 H, Eos % (Auto) 0.3, Baso % (Auto) 0.7, Absolute Neuts (auto) 4.7, Absolute Lymphs (auto) 0.92, Nucleated RBC % 0, PT 24.2 H, INR 2.2, Sodium 138, Potassium 3.6, Chloride 108 H, Carbon Dioxide 23.0, Anion Gap 7, BUN 10, Creatinine 1.08, Estim Creat Clear Calc 80.82, Est GFR (MDRD) Af Amer 87, Est GFR (MDRD) Non-Af 72, BUN/Creatinine Ratio 9.3 L, Glucose 120 H, Calcium 9.1, Total Bilirubin 0.30, Direct Bilirubin 0.16, AST 20, ALT 7 L, Alkaline Phosphatase 87, Total Protein 5.9 L, Albumin 2.0 L, Globulin 3.9 Assessment & Plan Assessment/Plan (1) Discitis of lumbar region: (2) Intractable low back pain: PLAN: Plan Patient 72-year-old gentleman admitted from an [facility] with back pain. Patient was apparently on admission from 1216 04/16/2020 MRI at that time showed T12-L1 discitis with developing epidural abscess. Interventional radiology aspiration demonstrated presence of E. coli patient was discharged on IV ceftriaxone presented back to the emergency department with worsening back pain. He was identified as having discitis and epidural abscess and is currently on treatment. He was also defined as having iron deficiency anemia on anticoagulation and antiplatelet therapy and recently has developed worsening esophageal dysphagia. Differential diagnosis does include stricture in esophagus, pill induced esophagitis, hiatal hernia, gastric antral vascular ectasia, peptic ulcer disease, H. pylori associated gastritis or peptic ulcer disease. He should undergo an upper endoscopy to evaluate his upper GI tract for esophageal dysphagia and anemia. He was explained alternatives, risk, benefits including not withstanding bleeding, infection, sepsis, perforation, need for emergent surgery and . He will have an ASA of 3. Charges/Coding Visit Charges Inpatient E&M: 68284 Init Hosp L3
[2023-05-13] MEDS: Atorvastatin Calcium 80 MG Tablet PO (21:10)
[2023-05-13] MEDS: Senna/Docusate Sodium 1 Tablet 2 TABLET PO (21:11)
[2023-05-13] MEDS: Mirtazapine 15 MG Tablet PO (21:11)
[2023-05-14] VITALS (16 sets, daily range): BP systolic 118–157; BP diastolic 58–100; PULSE 59–70; RESP 11–18; TEMP 36.2–36.8; O2SAT 96–100; BMI 38.5; BMI 38.6
[2023-05-14 02:53] LABS: Absolute Lymphocyte Count 0.92 X10^3/uL (0.83-4.51); Absolute Neutrophil Count 4.7 X10^3/uL (2.0-7.7); Basophil# 0.05 X10^3/uL; Basophil% 0.7 % (0-1); Eosinophil# 0.02 X10^3/uL; Eosinophils% 0.3 % (0-5); Lymphocyte # 0.92 X10^3/ul (0.83-4.51); Lymphocyte % 13.7 % (19-41); Mean Corp Hgb Conc 30.8 g/dL (32-36); Mean Corpuscular Hgb 28.6 pg (27.0-32.0); Mean Corpuscular Volume 92.9 fL (80-94); Mean Platelet Vol. 9.7 fl (6.2-12.0); Monocyte# 0.99 X10^3/uL; Monocyte% 14.8 % (0-10); NRBC Flagged by Analyzer 0 % (0-5); Neutrophil # 4.69 X10^3/uL (2.7-7.7); Neutrophil % 69.9 % (47-70); Platelet Count 257 K/mm3 (150-450); RBC Distribution Width CV 15.8 % (11.6-14.6); White Blood Count 6.7 K/mm3 (4.4-11.0)
[2023-05-14 03:21] LABS: International Normalized Ratio 2.2; Prothrombin Time (Protime)PT. 24.2 SECONDS (11.7-14.9)
[2023-05-14 03:25] LABS: AST(SGOT) 20 U/L (15-37); Alanine Aminotransfer ALT/SGPT 7 U/L (16-61); Alkaline Phosphatase 87 U/L (45-117); Anion Gap 7 (5-15); BUN 10 mg/dL (7-18); BUN/Creat Ratio 9.3 RATIO (10-20); Bilirubin, Direct 0.16 mg/dL (0.00-0.30); Calcium,Total 9.1 mg/dL (8.5-10.1); Chloride 108 mmol/L (98-107); Creatinine, Serum 1.08 mg/dL (0.70-1.30); EST Glomerular Filtration Rate 72 mL/min (>60); Est Glom Filt Rate - Afr Amer 87 mL/min (>60); Estimated Creatinine Clearance 80.82 ml/min; Globulin 3.9 g/dL (2.2-4.2); Glucose 120 mg/dL (74-106); Potassium 3.6 mmol/L (3.5-5.1); Protein, Total 5.9 g/dL (6.4-8.2); Sodium Level 138 mmol/L (136-145)
[2023-05-14] MEDS: Cefepime HCl 2 GM in 0.9% Normal Saline (100mL MB+) 100 ML IV ×3 (05:32→23:28)
[2023-05-14] MEDS: 0.9% Saline Lock 10 ML Syringe IV ×3 (05:33→18:39)
[2023-05-14] MEDS: Heparin Injection (Vial) 5,000 UNIT/ML VIAL 5000 UNIT SC ×2 (05:34→23:26)
--- NOTE | 2023-05-14 07:28 | PN.HOSP_ITS ---
Reason for Visit Reason for Visit: Diagnoses Sepsis, unspecified organism (05/09/23) Elevated white blood cell count, unspecified (05/09/23) Acidosis, unspecified (05/09/23) Other specified diseases of gallbladder (05/09/23) Discitis, unspecified, lumbar region (05/09/23) Acute kidney failure, unspecified (05/09/23) Urinary tract infection, site not specified (05/09/23) Chest pain, unspecified (05/09/23) Abnormal coagulation profile (05/09/23) Objective Data Objective Data Vital Signs: Vital Signs Temp Pulse Resp BP Pulse Ox O2 Del Method FiO2 97.8 F 59 L 12 143/66 H 97 Room Air 21 05/14/23 02:00 05/14/23 03:50 05/14/23 03:50 05/14/23 02:00 05/14/23 03:50 05/14/23 02:00 05/14/23 03:50 Oxygen Delivery Method Room Air Weight: 261 lb 11.019 oz Body Mass Index (BMI) 38.6 Intake & Output: Intake and Output for Last 24 Hours 05/12/23 05/13/23 05/14/23 22:59 23:59 23:59 Intake Total 100 / 100 Output Total 1999 Balance -1900 / -1900 Medical Nutrition Assessment Dietitian: Malnutrition Criteria Met Start: 05/10/23 10:04 Freq: Status: Active Protocol: Document 05/10/23 10:05 [facility] (Rec: 05/10/23 10:05 [facility] Desktop) Nutrition Malnutrition Evidence of Malnutrition Exists Yes Malnutrition (severe): Acute Illness/Injury Evidenced By Suboptimal Energy Intake ( Severe),Weight Loss (Severe) Clinical Problem Acute Disease or Injury Related Malnutrition Etiology severe, acute malnutrition related to inadequate energy intake w/ acute hospitalizations, nausea/ emesis, swallowing difficulty Signs/Symptoms as evidenced by unintentional wt loss 17% x 3 months, 6% wt loss x 1 month; estimated PO intake meeting <75% of estimated energy needs >3 months Status Active Problem Recommendation Dietitian Recommendations/Changes will adjust diet to regular and add ensure compact BID w/ meals; TISSUE SPECIALIST consult, texture/ consistency modifications per TISSUE SPECIALIST as needed. Lab / Micro Data 05/14/23 02:45 05/14/23 02:45 Labs: Laboratory Results - last 24 hr 03/10/24 03:15: Phosphorus 2.8, Magnesium 1.9 05/13/23 10:30: Retic Count 1.47, Immature Retic Fraction 26.30 H, Retic Hgb Equivalent 31.4, Iron 48 L, TIBC 150 L, Iron Saturation 32.0, Ferritin 638 H 05/14/23 02:45: WBC 6.7, RBC 2.80 L, Hgb 8.0 L, Hct 26.0 L, MCV 92.9, MCH 28.6, MCHC 30.8 L, RDW Std Deviation 54.0 H, RDW Coeff of Abdiel 15.8 H, Plt Count 257, MPV 9.7, Immature Gran % (Auto) 0.600, Neut % (Auto) 69.9, Lymph % (Auto) 13.7 L , [place] % (Auto) 14.8 H, Eos % (Auto) 0.3, Baso % (Auto) 0.7, Absolute Neuts (auto) 4.7, Absolute Lymphs (auto) 0.92, Nucleated RBC % 0, PT 24.2 H, INR 2.2, Sodium 138, Potassium 3.6, Chloride 108 H, Carbon Dioxide 23.0, Anion Gap 7, BUN 10, Creatinine 1.08, Estim Creat Clear Calc 80.82, Est GFR (MDRD) Af Amer 87, Est GFR (MDRD) Non-Af 72, BUN/Creatinine Ratio 9.3 L, Glucose 120 H, Calcium 9.1, Total Bilirubin 0.30, Direct Bilirubin 0.16, AST 20, ALT 7 L, Alkaline Phosphatase 87, Total Protein 5.9 L, Albumin 2.0 L, Globulin 3.9 Micro: Microbiology 05/09/23 15:45 Blood Culture (Wb) - Anticubital Right Blood Culture - Preliminary No growth in 48 hours. 05/09/23 15:29 Blood Culture (Wb) - Right Hand Blood Culture - Preliminary No growth in 48 hours. 05/09/23 16:54 Urine Catheter - Catheter Urine Culture - Final Pseudomonas aeruginosa 05/09/23 15:45 Mucosa - Nose SARS-CoV-2, Influenza & RSV (PCR) - Final Physical Exam Narrative Seen and examined. Patient does not have abdominal pain. No acute issues overnight. Patient does not have abdominal pain. Patient is moving bowel. Plan for EGD for dysphagia. CT abdomen/pelvis shows colonic fecal matter and patient had 3 bowel movements with the stool softeners and Dulcolax given. CT abdomen/pelvis and right upper quadrant sonogram shows acute cholecystitis with multiple gallstones. HIDA scan consistent with cystic duct obstruction with no radioactivity found in the gallbladder. Patient improved. Blood pressure systolic 150s. Sepsis is resolved. No fever. Physical exam General: Alert, Oriented x3, Cooperative HEENT: Atraumatic, PERRLA, EOMI, Normocephalic Oral: Oral mucosa dry. No Gingival or Mucosal Lesions/ Ulcerations Neck: Supple, No JVD, Negative Carotid Bruits Chest wall/Lungs: Air entry diminished in bilateral lung bases. No crepitation/rhonchi Cardiovascular: A-fib, irregular rhythm, Normal S1, Normal S2, No M/G/R Abdomen: Bowel Sounds Present, Soft, Non Tender, Non-Distended. No Peter sign or GB palpable : No dysuria. No renal angle tenderness. No suprapubic tenderness. Extremities: No edema, Capillary Refill Less than 3 Seconds Skin: No rashes, No breakdown Musculoskeletal: Weakness, chronic of lower extremities, 4/5 at hips and knee joints. Right TKR. Chronic mild tenderness present. Neurological: Cranial nerves II-XII grossly intact, DTR 2+/4. No acute focal n eurological deficit. Psych/Mental Status: Flat affect. Assessment & Plan Assessment/Plan (1) Sepsis: QUALIFIERS: Sepsis acute organ dysfunction status: unspecified Sepsis type: sepsis due to unspecified organism Qualified Code(s): A41.9 - Sepsis, unspecified organism (2) TEODORO (acute kidney injury): (3) Chest pain: PLAN: Plan 72-year-old gentleman was admitted with chest discomfort around noon time from [facility] but it was felt that he has a chronic chest discomfort and is on Ranexa on home medication. He also had recent hospitalization in April for intractable back pain from epidural abscess from where he was discharged to SNF with Adams catheter. Adams catheter was removed yesterday. Patient is stated that he could not get warmth and was found hypotensive in the ED and clinical diagnosis of sepsis was made 1. Sepsis secondary to suspected urinary tract infection: Patient is admitted to ICU. -Patient has leukocytosis, lactic acidosis, TEODORO, hypotension--> meets criteria per SEP 1. Lactic acidosis 3.7. Repeat 1 normal. -Fluid boluses given at 30 cc/kg body weight due to hypotension--> total of 4 L -Patient did not require pressors. Fluid responsive hypotension. -Blood and urine cultures were obtained the emergency department -Continue cefepime and vancomycin due to frequent hospitalizations and instrumentation -ID has been consulted 05/10: Blood culture x 2 negative for 48 hours. Urine culture shows Pseudomonas aeruginosa more than thousand colonies, resistant to piperacillin/tazobactam. Patient on IV cefepime ID consult requested. Discontinue vancomycin. Patient recommended 4 more days of ciprofloxacin. Patient did not move bowel since 05/04. Patient large body therefore x-ray wound be appropriate therefore CT abdome n/pelvis with oral contrast only ordered. Patient given Dulcolax 10 mg oral 1 dose. MiraLAX ordered. Patient already on senna S. Will cancel the discharge today. 05/11: Patient afebrile. CT abdomen shows multiple gallbladder stones and features of acute gastritis with GB wall thickening and stranding of surrounding fat similar. Liver normal. RUQ sonogram shows normal distended gallbladder wit h GB wall 5 mm. No pericholecystic fluid or Peter sign. Multiple GB stones. Patient does not have abdominal pain. Surgery is consulted. Liver chemistry shows chronically elevated alkaline phosphatase although improving. ALT AST normal although ALT is low. TB normal. Repeat liver chemistry today 05/12: HIDA scan shows no gallbladder activity. Radiotracer not found in gallbladder up to 120 minutes and therefore probably cystic duct obstruction. Discussed with the surgeon. Patient does not have abdominal pain. Patient has difficulty in swallowing and was on soft bite sized food but is still feels food stuck in the midesophagus therefore GI consulted for esophageal dysphagia and possible EGD. He states he feels dysphagia after the of April surgery. Den ies prior EGD or history of dysphagia or dilatation. Patient also had cardiac stent in March therefore could not come out of Plavix. In view of multiple comorbidities and risk of complication including thromboembolism and cardiac complications and patient not having abdominal pain, observation with wait and watch recommended. Discussed with the surgery and the patient in detail. 05/13: No acute change. Plan for EGD for assessment of esophageal dysphagia. Patient has problem with swallowing pills feels like it stuck in the chest. Chest pain atypical noncardiac -Patient does have a history of coronary disease -Initial troponin was unremarkable at 27 with repeat pending -EKG shows chronic atrial fibrillation without any ST-T wave changes concerning for acute ischemia -Patient is on Ranexa at home so we will continue 05/10: With 3 serial troponins negative, ACS ruled out. TEODORO -Suspect related to decreased perfusion from hypotension however patient did just have Adams removed -Bladder scan as needed -IV fluids as noted above -Keep maps greater than 65 05/10: BUNs/creatinine 02/02.13. 05/12: Patient has hypokalemia. Serum magnesium phosphorus normal. IV potassium replacement ordered. 05/13 K3.6. Hypotension -Secondary to the above -Baseline appears to run in the 140s to 150s systolic -89 on presentation -Fluid boluses as above 05/10: Patient blood pressure is on the higher side. Resume metoprolol and isosorbide mononitrate. Recent epidural abscess/osteomyelitis of lumbar spine -Patient has completed oral antibiotics however it does appear he is still on amoxicillin despite him telling me his completed antibiotics -Continue home amoxicillin--> cefepime should cover but I do not want to get this lost if cefepime discontinued depending on culture results -Not currently having any back pain -Monitor clinically with low threshold for imaging if back pain develops 05/13: Need ID follow-up. LILI -Continue home CPAP CAD/HTN/HPL - reports he had a stent in February -Continue Plavix and Coumadin -Continue high-dose atorvastatin -Hold antihypertensives due to hypotension on presentation -Continue home Ranexa GERD with history of GI bleed -Continue twice daily PPI -Continue Carafate 05/12: Hemoglobin low severe anemia 7.9 slowly decreased from 8.4. Platelet count normal. Continue twice daily PPI changed from oral to IV. Reticulocyte panel shows increased immature reticulocyte fraction suggestive of reactive bone marrow. Iron study shows low iron, low TIBC saturation normal and ferritin high suggestive of anemia of chronic disease. Chronic atrial fibrillation -Patient is in rate controlled A-fib at this time -Hold metoprolol for now due to hypotension but low threshold to reinitiate if blood pressure stabilizes to avoid tachycardia -Warfarin dose increased to 5 mg daily. Patient not get warfarin yesterday therefore give 1 now follow INR 05/10: Today INR is 1.9. Continue warfarin 5 mg daily. 05/12 INR is 2.5 therefore hold warfarin. BPH with obstruction -Patient had urinary retention postoperatively and had Adams removed after about 4 weeks today at [facility]. -Follow for urine output -Continue home Flomax -Bladder scan as needed Patient is very incontinent Polyarthritis -Continue home hydroxychloroquine Depression -Continue home citalopram Debility -PT/OT consultation -Patient will need to be discharged back to skilled facility once medically stabilized Morbid obesity -BMI is 42.1 -Recommend weight loss -Complicates treatment, prognosis, outcomes DVT prophylaxis -INR is subtherapeutic at 1.7 -Will give subcu heparin 3 times daily until INR is therapeutic 05/10: INR increased to 1.9. Warfarin was increased to 5 mg on 05/10. CODE STATUS Full code Charges/Coding Visit Charges Inpatient E&M: 69161 Subs Hosp L2
[2023-05-14 07:55] LABS: Vitamin B12 744 pg/mL (211-911)
--- NOTE | 2023-05-14 08:00 | PCM.PN.SRG ---
Subjective Subjective Patient evaluated resting comfortably in bed. He denies any abdominal pain. He is scheduled to undergo an EGD today with GI. Objective Data Objective Data Vital Signs: Vital Signs Temp Pulse Resp BP Pulse Ox O2 Del Method FiO2 97.8 F 59 L 12 143/66 H 97 Room Air 21 05/14/23 02:00 05/14/23 03:50 05/14/23 03:50 05/14/23 02:00 05/14/23 03:50 05/14/23 02:00 05/14/23 03:50 Oxygen Delivery Method Room Air Weight: 261 lb 11.019 oz Body Mass Index (BMI) 38.6 Intake & Output: Intake and Output for Last 24 Hours 05/12/23 05/13/23 05/14/23 22:59 23:59 23:59 Intake Total 100 / 100 Output Total 1999 / 1999 Balance -190 / -1899 Medical Nutrition Assessment Dietitian: Malnutrition Criteria Met Start: 05/10/23 10:04 Freq: Status: Active Protocol: Document 05/10/23 10:05 AG (Rec: 05/10/23 10:05 AG Desktop) Nutrition Malnutrition Evidence of Malnutrition Exists Yes Malnutrition (severe): Acute Illness/Injury Evidenced By Suboptimal Energy Intake ( Severe),Weight Loss (Severe) Clinical Problem Acute Disease or Injury Related Malnutrition Etiology severe, acute malnutrition related to inadequate energy intake w/ acute hospitalizations, nausea/ emesis, swallowing difficulty Signs/Symptoms as evidenced by unintentional wt loss 17% x 3 months, 6% wt loss x 1 month; estimated PO intake meeting <75% of estimated energy needs >3 months Status Active Problem Recommendation Dietitian Recommendations/Changes will adjust diet to regular and add ensure compact BID w/ meals; DUMPCART DRIVER consult, texture/ consistency modifications per DUMPCART DRIVER as needed. Lab / Micro Data 05/14/23 02:45 05/14/23 02:45 Labs: Laboratory Results - last 24 hr 05/13/23 03:15: Phosphorus 2.8, Magnesium 1.9 05/13/23 10:30: Retic Count 1.47, Immature Retic Fraction 26.30 H, Retic Hgb Equivalent 31.4, Iron 48 L, TIBC 150 L, Iron Saturation 32.0, Ferritin 638 H, Vitamin B12 744 05/14/23 02:45: WBC 6.7, RBC 2.80 L, Hgb 8.0 L, Hct 26.0 L, MCV 92.9, MCH 28.6, MCHC 30.8 L, RDW Std Deviation 54.0 H, RDW Coeff of Abdiel 15.8 H, Plt Count 257, MPV 9.7, Immature Gran % (Auto) 0.600, Neut % (Auto) 69.9, Lymph % (Auto) 13.7 L, [place] % (Auto) 14.8 H, Eos % (Auto) 0.3, Baso % (Auto) 0.7, Absolute Neuts (auto) 4.7, Absolute Lymphs (auto) 0.92, Nucleated RBC % 0, PT 24.2 H, INR 2.2, Sodium 138, Potassium 3.6, Chloride 108 H, Carbon Dioxide 23.0, Anion Gap 7, BUN 10, Creatinine 1.08, Estim Creat Clear Calc 80.82, Est GFR (MDRD) Af Amer 87, Est GFR (MDRD) Non-Af 72, BUN/Creatinine Ratio 9.3 L, Glucose 120 H, Calcium 9.1, Total Bilirubin 0.30, Direct Bilirubin 0.16, AST 20, ALT 7 L, Alkaline Phosphatase 87, Total Protein 5.9 L, Albumin 2.0 L, Globulin 3.9 Micro: Microbiology 05/09/23 15:45 Blood Culture (Wb) - Anticubital Right Blood Culture - Preliminary No growth in 48 hours. 05/09/23 15:29 Blood Culture (Wb) - Right Hand Blood Culture - Preliminary No growth in 48 hours. 05/09/23 16:54 Urine Catheter - Catheter Urine Culture - Final Pseudomonas aeruginosa 05/09/23 15:45 Mucosa - Nose SARS-CoV-2, Influenza & RSV (PCR) - Final Physical Exam GI normal to inspection, nondistended, normoactive bowel sounds Assessment & Plan Assessment/Plan (1) Thickening of wall of gallbladder: PLAN: I am following this patient in conjunction with Dr. Nguyễn. Continue conservative measures as patient is not having any abdominal pain associated with food Scheduled for an EGD today with Dr. Hurst No diet restrictions from surgical standpoint No surgical intervention being considered at this time Patient on Plavix an Coumadin We will continue to monitor this patient Charges/Coding Visit Charges Inpatient E&M: 46944 [facility] Hosp L1
[2023-05-14] MEDS: Pantoprazole Sodium 40 MG in 0.9% Normal Saline (100mL MB+) 100 ML 330 MG IV ×2 (10:26→23:23)
--- NOTE | 2023-05-14 12:24 | CASEMGMT ---
Social Work Pt to get EGD today, likely not ready for discharge back to [place] today. SW let [facility] know via [facility]. MARTINEZ Gonzalez
--- NOTE | 2023-05-14 13:39 | CASEMGMT ---
Discharge Planning Updates sent via [facility] to [facility]. Jayne Henry, Discharge Planning Asst.
--- NOTE | 2023-05-14 13:45 | EGD_PTH ---
PATIENT: GUSTAVO HARTMAN LOC: [facility] U#:[id number] AGE/SX: 72/M ROOM: [facility] RE05/09/[address]: Dr. Wild Martinez MD : 1950 BED: 1 DIS: 05/16/2023 SPEC #: [id number] RECD: 05/15/23 07:59 STATUS: SEBASTIÁN REElliot #: [id number] JESSE: 05/14/23 13:[address]: Gil Hurst DEPT: SURGICAL PATHOLOGY RECD BY: Nohemi Pelayo ENTERED: 05/15/23 07:59 SP TYPE: EGD BIOPSY OTHR DR: MD Dr. Noa Virgen DO Dr. Prakash Chand, MD Dr. Robert Leininger, MD Dr. Tamera Robotham, MD Tissues: Esophageal mucous membrane Procedures: Special Stain Group II Surgery Specimen Level IV Alcian Blue/PAS (control) Comments: @ Ordering doctor for SUIV edited from to @ by THANH at 05/16/23 08 @ Submitting doctor edited from to @ by THANH at 05/16/23 0803 HEADER OPERATION: EGD, Biopsy, Dilation PRE-OP DIAGNOSIS: Sepsis, Lactic acidosis, TEODORO, Subtherapeutic international normalized ratio, Leukocytosis TISSUE SUBMITTED: Distal esophagus biopsy MICROSCOPIC DIAGNOSIS Distal esophagus, biopsy: Fragments of gastroesophageal mucosa with focal intestinal metaplasia (goblet cell metaplasia), consistent with Barrera's esophagus. Focal chronic inflammation and minimal acute inflammation. Negative for dysplasia. See comment. SJ:ronna 05/16/2023 COMMENT Immunohistochemistry ([id number]) for P53 and Ki-67 will be performed and results will be reported separately. Alcian blue/PAS stain with matched control is used in the evaluation of the specimen. MICROSCOPIC DESCRIPTION Slides are reviewed. GROSS DESCRIPTION Received in fixative is one container labeled with the patient's name and designated distal esophagus biopsy. The specimen consists of multiple irregular fragments of light florentino soft tissue that in aggregate measure 1.5 x 0.2 x 0.1 cm. The specimen is totally submitted in one cassette. / LIZZY:ronna 05/15/2023 TC:3 CPT: 16865, 26266
--- NOTE | 2023-05-14 13:45 | IMM_PTH ---
PATIENT: GUSTAVO HARTMAN LOC: [facility] U#:[id number] AGE/SX: 72/M ROOM: [facility] RE05/09/[address]: Dr. Wild Martinez MD : 1950 BED: 1 DIS: 05/16/2023 SPEC #: [id number] RECD: 05/16/23 16:34 STATUS: SOUJuana REQ #: [id number] JESSE: 05/14/23 13:[address]: Gil Hurst DEPT: IMMUNOHISTOCHEMISTRY RECD BY: Iliana Lock ENTERED: 05/16/23 16:35 SP TYPE: IMMUNO OTHR DR: MD Dr. Noa Virgen DO Dr. Prakash Chand, MD Dr. Robert Leininger, MD Dr. Tamera Robotham, MD Tissues: Esophagus, NOS Procedures: P53 (initial) KI-67 (add) PHYSICIAN & INSTITUTION [place] [address] SPECIMEN INFORMATION: Tissue Source: Distal esophagus Clinical Info: Sepsis, lactic acidosis, TEODORO, leukocytosis Specimen Number: [id number] CPT code: 55193, 18000 METHODOLOGY: Deparaffinized sections of prefer/formalin-fixed tissue or PAP/DQ stained slides are incubated with monoclonal/polyclonal antibodies/oligonucleotide probes. Localization is made via biotin free immunoperoxidase method. Appropriate controls are performed and reacted as expected. Results on target cell population are indicated in the following table: RESULTS: ANTIBODY / CLONE RESULT P53 (DO-7) negative (null pattern) Ki-67 (30-9) positive, low These tests were developed and their performance characteristics determined by [facility]. They may not have been cleared or approved by the U.S. Food and Drug Administration. The FDA has determined that such clearance or approval is not necessary. The above immunohistochemical/dualISH markers are ordered and reviewed by the Pathologist. INTERPRETATION: Distal esophagus, biopsy: Negative for dysplasia. LIZZY/ 05/17/2023
--- NOTE | 2023-05-14 13:58 | OP.EGD_ITS ---
Patient Name: Arpit Montiel Procedure Date: 05/14/2023 1:37 PM Date of : 1950 Age: 72 Procedure: Upper GI endoscopy Indications: Dysphagia, Heartburn Providers: Gil Hurst DO Medicines: Monitored Anesthesia Care Patient Profile: This is a 72 year old male. Refer to note in patient chart for documentation of history and physical. Patient has symptoms of dysphagia with solids. Complications: No immediate complications. Procedure: Pre-Anesthesia Assessment: - Prior to the procedure, a History and Physical was performed, and patient medications and allergies were reviewed. The patient is competent. The risks and benefits of the procedure and the sedation options and risks were discussed with the patient. All questions were answered and informed consent was obtained. Patient identification and proposed procedure were verified by the physician. Mental Status Examination: normal. CV Examination: normal. Prophylactic Antibiotics: The patient does not require prophylactic antibiotics. Prior Anticoagulants: The patient has taken no anticoagulant or antiplatelet agents. After reviewing the risks and benefits, the patient was deemed in satisfactory condition to undergo the procedure. The anesthesia plan was to use monitored anesthesia care (MAC). Immediately prior to administration of medications, the patient was re-assessed for adequacy to receive sedatives. The heart rate, respiratory rate, oxygen saturations, blood pressure, adequacy of pulmonary ventilation, and response to care were monitored throughout the procedure. The physical status of the patient was re-assessed after the procedure. After obtaining informed consent, the endoscope was passed under direct vision. Throughout the procedure, the patient's blood pressure, pulse, and oxygen saturations were monitored continuously. The gastroscope was introduced through the mouth, and advanced to the second part of duodenum. The upper GI endoscopy was accomplished without difficulty. The patient tolerated the procedure well. Scope In: 1:46:44 PM Scope Out: 1:53:37 PM Total Procedure Duration Time 0 hours 6 minutes 53 seconds Findings: A moderate Schatzki ring was found at the gastroesophageal junction. A guidewire was placed and the scope was withdrawn. Dilation was performed with a Savary dilator with no resistance at 54 Fr. The dilation site was examined following endoscope reinsertion and showed moderate improvement in luminal narrowing. The Z-line was irregular and was found 41 cm from the incisors. Biopsies were taken with a cold forceps for histology. Verification of patient identification for the specimen was done. Estimated blood loss was minimal. A small hiatal hernia was present. No other significant abnormalities were identified in a careful examination of the stomach. No gross lesions were noted in the first portion of the duodenum. Impression: - Moderate Schatzki ring. Dilated. - Z-line irregular, 41 cm from the incisors. Biopsied. - Small hiatal hernia. - No gross lesions in the first portion of the duodenum. Recommendation: - Return patient to ICU for ongoing care. - Full liquid diet today. - Use Protonix (pantoprazole) 40 mg PO BID for 12 weeks. - Continue present medications. Procedure Code(s): --- Professional --- 30580, Esophagogastroduodenoscopy, flexible, transoral; with insertion of guide wire followed by passage of dilator(s) through esophagus over guide wire 87150, 59,51, Esophagogastroduodenoscopy, flexible, transoral; with biopsy, single or multiple CPT copyright 2021 [employer]. All rights reserved. The codes documented in this report are preliminary and upon certified medical coder review may be revised to meet current compliance requirements. Gil Hurst DO 05/14/2023 1:58:11 PM This report has been signed electronically. Number of Addenda: 0 Note Initiated On: 05/14/2023 1:37 PM
--- NOTE | 2023-05-14 13:59 | OP.CCLET_ITS ---
05/14/2023 Bryce Zamarripa MD [address] [place] [address] [place] [address] Re : Upper GI endoscopy procedure for Arpit Montiel Dear Dr. Zamarripa This procedure was performed on Sunday, May 14, 2023. My impressions and recommendations are as follows: Impressions : - Moderate Schatzki ring. Dilated. - Z-line irregular, 41 cm from the incisors. Biopsied. - Small hiatal hernia. - No gross lesions in the first portion of the duodenum. Recommendations : - Return patient to ICU for ongoing care. - Full liquid diet today. - Use Protonix (pantoprazole) 40 mg PO BID for 12 weeks. - Continue present medications. My findings are described in the full procedure note, which is enclosed. If I can be of further assistance, please feel free to contact me at . Sincerely, Gil Friend, 05/14/2023 1:58:11 PM This report has been signed electronically.
[2023-05-14] MEDS: Sucralfate 1 GM Tablet PO ×2 (17:03→23:24)
[2023-05-14] MEDS: Ensure Clear 120 ML Liquid PO ×2 (17:03→23:44)
[2023-05-14] MEDS: 0.9% Normal Saline (250mL Bag) 250 ML 15 ML IV (17:06)
--- NOTE | 2023-05-14 17:53 | NURSING ---
report called to Noreen VERA in PCU.
[2023-05-14] MEDS: Atorvastatin Calcium 80 MG Tablet PO (23:24)
[2023-05-14] MEDS: Metoprolol(XL)Succ 50 MG Tablet PO (23:24)
[2023-05-14] MEDS: Isosorbide Mononitrate 60 MG Tablet PO (23:25)
[2023-05-14] MEDS: Ranolazine 500 MG Tablet PO (23:25)
[2023-05-14] MEDS: Senna/Docusate Sodium 1 Tablet 2 TABLET PO (23:25)
[2023-05-14] MEDS: Mirtazapine 15 MG Tablet PO (23:25)
[2023-05-14] MEDS: Hydroxychloroquine 200 MG Tablet PO (23:27)
[2023-05-14] MEDS: Zinc Oxide 30gm Tube 1 APPLIC TOPICAL (23:27)
[2023-05-15] VITALS (9 sets, daily range): BP systolic 108–186; BP diastolic 58–74; PULSE 57–70; RESP 13–18; TEMP 36.1–36.9; O2SAT 93–100; BMI 39.2
[2023-05-15] MEDS: Cefepime HCl 2 GM in 0.9% Normal Saline (100mL MB+) 100 ML IV (06:06)
[2023-05-15] MEDS: 0.9% Saline Lock 10 ML Syringe IV ×2 (06:07→10:06)
[2023-05-15] MEDS: Sucralfate 1 GM Tablet PO ×3 (06:07→23:50)
[2023-05-15] MEDS: Heparin Injection (Vial) 5,000 UNIT/ML VIAL 5000 UNIT SC ×2 (06:10→23:50)
--- NOTE | 2023-05-15 06:29 | PN.GI_ITS ---
Subjective Subjective Patient does not have any abdominal pain. He underwent an EGD yesterday. He was covered to have a Schatzki's ring that was causing restriction at the level of his distal esophagus. He is eating well without any more esophageal dysphagia. Objective Data Objective Data Vital Signs: Vital Signs Temp Pulse Resp BP Pulse Ox O2 Del Method O2 Flow Rate 98.0 F 62 14 137/66 H 100 Nasal Cannula 2 05/15/23 14:00 05/15/23 16:08 05/15/23 14:00 05/15/23 16:08 05/15/23 16:08 05/15/23 16:08 05/15/23 16:08 FiO2 21 05/14/23 03:50 Oxygen Flow Rate (L/min) 2 Oxygen Delivery Method Nasal Cannula Weight: 266 lb 1.567 oz Body Mass Index (BMI) 39.2 Intake & Output: Intake and Output for Last 24 Hours 05/13/23 05/14/23 05/15/23 23:59 23:59 23:59 Intake Total 333.25 / 633.25 920 / 920 Output Total 3515 / 4065 1700 / 1700 Balance -3181.75 / -3431.75 -780 / -780 Medical Nutrition Assessment Dietitian: Malnutrition Criteria Met Start: 05/10/23 10:04 Freq: Status: Active Protocol: Document 05/14/23 11:58 LAURA (Rec: 05/14/23 11:58 LAURA [id number]) Nutrition Malnutrition Evidence of Malnutrition Exists Yes Malnutrition (severe): Acute Illness/Injury Evidenced By Suboptimal Energy Intake ( Severe),Weight Loss (Severe) Clinical Problem Acute Disease or Injury Related Malnutrition Etiology severe, acute malnutrition related to inadequate energy intake w/ acute hospitalizations, nausea/ emesis, swallowing difficulty Signs/Symptoms as evidenced by unintentional wt loss 17% x 3 months, 6% wt 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 Lab / Micro Data 05/14/23 02:45 05/14/23 02:45 Labs: Laboratory Results - last 24 hr 05/15/23 06:26: PT 17.8 H, INR 1.5, Total Bilirubin 0.40, Direct Bilirubin 0.17, AST 21, ALT 9 L, Alkaline Phosphatase 100, Total Protein 7.0, Albumin 2.3 L, Globulin 4.7 H Micro: Microbiology 05/15/23 14:27 Nasal Secretion SARS-CoV-2 Antigen (Rapid) - Final 05/09/23 15:29 Blood Culture (Wb) - Right Hand Blood Culture - Final No growth in 5 days. 05/09/23 15:45 Blood Culture (Wb) - Anticubital Right Blood Culture - Final No growth in 5 days. 05/09/23 16:54 Urine Catheter - Catheter Urine Culture - Final Pseudomonas aeruginosa 05/09/23 15:45 Mucosa - Nose SARS-CoV-2, Influenza & RSV (PCR) - Final ABG Data ABG results: ABG 05/15/23 16:24 Specimen Type ART Sample Site L Radial pH 7.42 Bicarbonate Actual 22.3 Total CO2 23 Base Excess -2 O2 Saturation 99 O2 % 2.0 ABG pCO2 34.5 L ABG pO2 120 H Yoandy Test Positive O2 Delivery Device Cannula Vent Mode Not entered Physical Exam Const oriented x3 and no apparent distress Resp normal respiratory effort Cardio regular rate GI soft to palpation and non-tender Inspection: Negative for abdominal distention Assessment & Plan Assessment/Plan (1) Discitis of lumbar region: (2) Intractable low back pain: PLAN: Plan Patient 72-year-old gentleman admitted from an [facility] with back pain. Patient was apparently on admission from 1216 04/16/2020 MRI at that time showed T12-L1 disc itis with developing epidural abscess. Interventional radiology aspiration demonstrated presence of E. coli patient was discharged on IV ceftriaxone presented back to the emergency department with worsening back pain. He was identified as having discitis and epidural abscess and is currently on tr eatment. He was also defined as having iron deficiency anemia on anticoagulation and antiplatelet therapy and recently has developed worsening esophageal dysphagia. Differential diagnosis does include stricture in esophagus, pill induced esophagitis, hiatal hernia, gastric antral vascular ectasia, peptic ulcer disease, H. pylori associated gastritis or peptic ulcer disease. He should undergo an upper endoscopy to evaluate his upper GI tract for esophageal dysphagia and anemia. He was explained alternatives, risk, benefits including not withstanding bleeding, infection, sepsis, perforation, need for emergent surgery and . He will have an ASA of 3. 3/12/24-Schatzki's ring that was dilated. He had no other acute abnormalities that was seen other than a hiatal hernia which I do not think is causing his symptoms. He is scheduled to follow-up with surgery as an outpatient. He will need to be on PPI twice a day. And follow-up in office. Charges/Coding Visit Charges Inpatient E&M: 17836 Subs Hosp L3
--- NOTE | 2023-05-15 07:23 | TREXTCAR_ITS ---
Diet Diet Order/Speech Therapy: 05/15/23 07:14 Diet: Full Liquid Is pt able to select menu?: Yes Routine Orders/Code Status Suppository Type: Dulcolax 10mg Suppository Frequency: Daily PRN Routine Lab Work: INR (Every day at least for next 4 days until he completes ciprofloxacin and adjust warfarin accordingly.) Code Status: Full Code Wound(s) Right Salazar: Wound Type: scab Back: Wound Type: Surgical Incision 2nd Rt toe: Wound Type: scab lower back: Wound Type: Surgical Incision Therapies Physical Therapy: Eval and Treat Occupational Therapy: Eval and Treat Speech Therapy: Eval and Treat Problem/Diagnosis (1) Discitis of lumbar region: Status: Acute Code(s): M46.46 - Discitis, unspecified, lumbar region (2) Intractable low back pain: Status: Acute Code(s): M54.59 - Other low back pain Plan 72-year-old gentleman was admitted with chest discomfort around noon time from [facility] but it was felt that he has a chronic chest discomfort and is on Ranexa on home medication. He also had recent hospitalization in April for intractable back pain from epidural abscess from where he was discharged to SNF with Adams catheter. Adams catheter was removed yesterday. Patient is stated that he could not get warmth and was found h ypotensive in the ED and clinical diagnosis of sepsis was made 1. Sepsis secondary to suspected urinary tract infection: Patient is admitted to ICU. -Patient has leukocytosis, lactic acidosis, TEDOORO, hypotension--> meets criteria per SEP 1. Lactic acidosis 3.7. Repeat 1 normal. -Fluid boluses given at 30 cc/kg body weight due to hypotension--> total of 4 L -Patient did not require pressors. Fluid responsive hypotension. -Blood and urine cultures were obtained the emergency department -Continue cefepime and vancomycin due to frequent hospitalizations and instrumentation -ID has been consulted 05/10: Blood culture x 2 negative for 48 hours. Urine culture shows Pseudomonas aeruginosa more than thousand colonies, resistant to piperacillin/tazobactam. Patient on IV cefepime ID consult requested. Discontinue vancomycin. Patient recommended 4 more days of ciprofloxacin. Patient did not move bowel since 05/04. Patient large body therefore x-ray wound be appropriate therefore CT abdomen/p alverto with oral contrast only ordered. Patient given Dulcolax 10 mg oral 1 dose. MiraLAX ordered. Patient already on senna S. Will cancel the discharge today. 05/11: Patient afebrile. CT abdomen shows multiple gallbladder stones and features of acute gastritis with GB wall thickening and stranding of surrounding fat similar. Liver normal. RUQ sonogram shows normal distended gallbladder with GB wall 5 mm. No pericholecystic fluid or Peter sign. Multiple GB stones. Patient does not have abdominal pain. Surgery is consulted. Liver chemistry shows chronically elevated alkaline phosphatase although improving. ALT AST normal although ALT is low. TB normal. Repeat liver chemistry today 05/12: HIDA scan shows no gallbladder activity. Radiotracer not found in gallbladder up to 120 minutes and therefore probably cystic duct obstruction. Discussed with the surgeon. Patient does not have abdominal pain. Patient has difficulty in swallowing and was on soft bite sized food but is still feels food stuck in the midesophagus therefore GI consulted for esophageal dysphagia and possible EGD. He states he feels dysphagia after the of April surgery. Denies prior EGD or history of dysphagia or dilatation. Patient also had cardiac stent in March therefore could not come out of Plavix. In view of multiple comorbidities and risk of complication including thromboembolism and cardiac complications and patient not having abdominal pain, observation with wait and watch recommended. Discussed with the surgery and the patient in detail. 05/13: No acute change. Plan for EGD for assessment of esophageal dysphagia. Patient has problem with swallowing pills feels like it stuck in the chest. 05/14: EGD was done on 05/14/2023 as mentioned below. Liquid diet yesterday. Advance to soft diet. Impressions : - Moderate Schatzki ring. Dilated. - Z-line irregular, 41 cm from the incisors. Biopsied. - Small hiatal hernia. - No gross lesions in the first portion of the duodenum. Recommendations : Liquid diet - Use Protonix (pantoprazole) 40 mg PO BID for 12 weeks. - Chest pain atypical noncardiac -Patient does have a history of coronary disease -Initial troponin was unremarkable at 27 with repeat pending -EKG shows chronic atrial fibrillation without any ST-T wave changes concerning for acute ischemia -Patient is on Ranexa at home so we will continue 05/10: With 3 serial troponins negative, ACS ruled out. TEODORO -Suspect related to decreased perfusion from hypotension however patient did just have Adams removed -Bladder scan as needed -IV fluids as noted above -Keep maps greater than 65 05/10: BUNs/creatinine 02/02.13. 05/12: Patient has hypokalemia. Serum magnesium phosphorus normal. IV potassium replacement ordered. 05/13 K3.6. Hypotension -Secondary to the above -Baseline appears to run in the 140s to 150s systolic -89 on presentation -Fluid boluses as above 05/10: Patient blood pressure is on the higher side. Resume metoprolol and is osorbide mononitrate. Recent epidural abscess/osteomyelitis of lumbar spine -Patient has completed oral antibiotics however it does appear he is still on amoxicillin despite him telling me his completed antibiotics -Continue home amoxicillin--> cefepime should cover but I do not want to get this lost if cefepime discontinued depending on culture results -Not currently having any back pain -Monitor clinically with low threshold for imaging if back pain develops 05/13: Need ID follow-up. LILI -Continue home CPAP CAD/HTN/HPL - reports he had a stent in February -Continue Plavix and Coumadin -Continue high-dose atorvastatin -Hold antihypertensives due to hypotension on presentation -Continue home Ranexa GERD with history of GI bleed -Continue twice daily PPI -Continue Carafate 05/12: Hemoglobin low severe anemia 7.9 slowly decreased from 8.4. Platelet count normal. Continue twice daily PPI changed from oral to IV. Reticulocyte panel shows increased immature reticulocyte fraction suggestive of reactive bone marrow. Iron study shows low iron, low TIBC saturation normal and ferritin high suggestive of anemia of chronic disease. Chronic atrial fibrillation -Patient is in rate controlled A-fib at this time -Hold metoprolol for now due to hypotension but low threshold to reinitiate if blood pressure stabilizes to avoid tachycardia -Warfarin dose increased to 5 mg daily. Patient not get warfarin yesterday therefore give 1 now follow INR 05/10: Today INR is 1.9. Continue warfarin 5 mg daily. 05/12 INR is 2.5 therefore hold warfarin. BPH with obstruction -Patient had urinary retention postoperatively and had Adams removed after about 4 weeks today at [facility]. -Follow for urine output -Continue home Flomax -Bladder scan as needed Patient is very incontinent Polyarthritis -Continue home hydroxychloroquine Depression -Continue home citalopram Debility -PT/OT consultation -Patient will need to be discharged back to skilled facility once medically stabilized Morbid obesity -BMI is 42.1 -Recommend weight loss -Complicates treatment, prognosis, outcomes DVT prophylaxis -INR is subtherapeutic at 1.7 -Will give subcu heparin 3 times daily until INR is therapeutic 05/10: INR increased to 1.9. Warfarin was increased to 5 mg on 05/10. CODE STATUS Full code Allergies/Procedures Done in Hospital Allergies bee venom protein (honey bee) Allergy (Verified 05/09/23 15:12) Hives amlodipine Adverse Reaction (Severe, Verified 05/09/23 15:12) severe swelling in hands and feet ceftriaxone Adverse Reaction (Verified 05/09/23 21:31) Nausea/Vom/Diarrhea severe nausea and vomiting spider venom Adverse Reaction (Verified 05/09/23 15:12) Other Type of Care/Length of Stay Estimated LOS: Convalescent Care Less Than 30 days Type of Care Needed: Skilled Rehab Potential: Good Prognosis: Good Additional Orders/Day of Discharge Day of Discharge: 05/11/23 Dietary and Speech Recommendations Dietitian Recommendations/Changes: Continue liberal regular diet w/ ensure clear w/ medpass; [employer] consult, texture/consistency modifications per MA[employer] RELATIONS as needed. Discharge Plan Admission Admit Date/Time: 05/09/23 18:05 Primary Reason for Your Visit: Pseudomonas UTI related sepsis Attending Provider: Wild Martinez Primary Care Provider: Bryce Zamarripa Consulting Providers: Noa Leyva; Merritt Soares; Jennifer Nguyễn Discharge Orders/Prescriptions Prescriptions: New warfarin [Jantoven] 5 mg Tablet 5 mg PO DINNER Qty: 0 0RF Rx Instructions: Keep INR between 2-3 about 2.5. ciprofloxacin HCl [Cipro] 500 mg tablet 500 mg PO BID 4 Days Qty: 8 0RF bisacodyl [Dulcolax (bisacodyl)] 10 mg suppository 10 mg AR DAILY PRN (Reason: constipation) Qty: 30 0RF polyethylene glycol 3350 17 gram Powder In Packet 17 g PO DAILY Qty: 0 0RF Continued hydroxychloroquine 200 mg tablet 200 mg PO BID (DME) Handicap Placard See Rx Instructions .Route .MEDSUPPLY Qty: 1 0RF Rx Instructions: Good from 07/05/2021-07/05/2026; citalopram 20 MG tablet 20 mg PO DAILY tamsulosin 0.4 MG capsule 0.4 mg PO DAILY isosorbide mononitrate 60 mg tablet extended release 24 hr 60 mg PO BID nitroglycerin 0.4 mg tablet, sublingual 0.4 mg sublingual Q5M PRN (Reason: chest pain) clopidogrel 75 mg tablet 75 mg PO DAILY folic acid 1 mg tablet 1 mg PO DAILY losartan 50 mg tablet 50 mg PO DAILY Hold Instructions: Hold for 4 days. Hold for SBP less than 130 mmHg ondansetron HCl 4 mg tablet 4 mg PO Q4H PRN sucralfate 1 gram tablet 1 g PO 4X/DAY potassium chloride 20 mEq/15 mL liquid 20 meq PO DAILY scopolamine base 1 mg over 3 days patch 3 day 1 patch transdermal Q3D PRN (Reason: nausea and vomiting) alum-mag hydroxide-simeth [Advanced Antacid-Antigas] 200-200-20 mg/5 mL suspension 30 ml PO DAILY PRN (Reason: GERD) melatonin 3 mg tablet 3 mg PO QHS PRN (Reason: sleep) metoprolol succinate 50 mg tablet extended release 24 hr 50 mg PO BID atorvastatin 80 mg tablet 80 mg PO QHS mirtazapine 15 mg tablet 15 mg PO QHS naloxone 4 mg/actuation spray,non-aerosol 4 mg intranasal Q3M PRN (Reason: opioid overdose) Rx Instructions: spray 1 dose into ONE nostril; alternate nostrils w each dose until help arrives nystatin 100,000 unit/gram powder 1 applic topical BID Rx Instructions: APPLY TO AFFECTED AREAS TWICE DAILY ranolazine 500 mg tablet extended release 12 hr 500 mg PO BID sennosides-docusate sodium [Senna with Docusate Sodium] 8.6-50 mg tablet 1 tab-cap PO BID zinc oxide 20 % ointment 1 applic topical BID acetaminophen 500 mg tablet 1,000 mg PO BID amoxicillin 875 mg tablet 875 mg PO Q12H Boost High Protein 0.06 gram- 1 kcal/mL liquid 120 ml PO BIDCM pantoprazole 40 mg tablet,delayed release (DR/EC) 40 mg PO Q12H 30 Days Qty: 60 2RF Rx Instructions: for 12 weeks Changed cyclobenzaprine 10 mg tablet 10 mg PO Q8H PRN (Reason: pain) 30 Days Qty: 0 0RF oxycodone 5 mg Tablet 5 - 10 mg PO Q6H 3 Days Qty: 10 0RF Discontinued warfarin 4 mg tablet 4 mg PO QHS Protocol: Dose Management Condition: Sunday Dose/Route: 4 mg Instruction: 1 x 4 mg tablet Condition: Sunday Dose/Route: 8 mg Instruction: 2 x 4 mg tablets Condition: Sunday Dose/Route: 8 mg Instruction: 2 x 4 mg tablets Condition: Sunday Dose/Route: 8 mg Instruction: 2 x 4 mg tablets Condition: Dose/Route: 8 mg Instruction: 2 x 4 mg tablets Condition: Sunday Dose/Route: 8 mg Instruction: 2 x 4 mg tablets Condition: Sunday Dose/Route: 4 mg Instruction: 1 x 4 mg tablet Protocol Text: Adjustment Start Date: Sunday02/12/23 INR Value: 1.6 INR Date: 02/12/23 Recheck Date: 02/19/23 Referrals / Follow Up: Bryce Zamarripa MD [Primary Care Provider] - Hal Phipps DO [Med Staff - Active Staff] - Within 1 Month Cornell Gunter MD [Med Staff - Active Staff] - Merritt Soares MD [Med Staff - Active Staff] - Within 1 Month Jennifer Nguyễn MD [Med Staff - Active Staff] - Within 1 Month Disposition Disposition (needs filled in before D/C Order can be placed): [facility]
[2023-05-15 07:25] LABS: International Normalized Ratio 1.5; Prothrombin Time (Protime)PT. 17.8 SECONDS (11.7-14.9)
--- NOTE | 2023-05-15 07:43 | DS.PCM_ITS ---
Providers Date of Admission: 05/09/23 Primary Care Physician: Dr. Bryce Zamarripa MD Consultations 05/09/23 18:59 Consult: Nylon Operator / Pulmonary Medicine Routine Consulting Provider: Intensivists/Pulmonary Med Reason for Consult: sepsis EMERGENT Consult: No Notified: Yes Date Notified: 05/09/23 Time Notified: 18:07 Method of Notification: Verbal 05/11/23 07:33 Consult: Infectious Disease Routine Consulting Provider: Merritt Soares Reason for Consult: Pseudomonas resisitant to zosyn EMERGENT Consult: No Notified: Yes Date Notified: 05/11/23 Time Notified: 07:34 Method of Notification: Text 05/11/23 22:49 Consult: General Surgery Routine Consulting Provider: Jennifer Nguyễn Reason for Consult: Acute cholecystitis EMERGENT Consult: No Notified: Yes Date Notified: 05/11/23 Time Notified: 22:50 Method of Notification: Text 05/12/23 18:42 Consult: Gastroenterology Routine Consulting Provider: [facility] Reason for Consult: Dysphagia, need EGD, Dyspepctic symtoms EMERGENT Consult: No Notified: Yes Date Notified: 05/12/23 Time Notified: 18:42 Method of Notification: Verbal Reason For Visit: SEPSIS 2/2 TO UTI Diagnosis Discharge Diagnosis (1) Discitis of lumbar region: Status: Acute Code(s): M46.46 - Discitis, unspecified, lumbar region (2) Intractable low back pain: Status: Acute Code(s): M54.59 - Other low back pain Plan 72-year-old gentleman was admitted with chest discomfort around noon time from [facility] but it was felt that he has a chronic chest discomfort and is on Ranexa on home medication. He also had recent hospitalization in April for intractable back pain from epidural abscess from where he was discharged to SNF with Adams catheter. Adams catheter was removed yesterday. Patient is stated that he could not get warmth and was found hypotensive in the ED and clinical diagnosis of sepsis was made 1. Sepsis secondary to suspected urinary tract infection: Patient is admitted to ICU. -Patient has leukocytosis, lactic acidosis, TEODORO, hypotension--> meets criteria per SEP 1. Lactic acidosis 3.7. Repeat 1 normal. -Fluid boluses given at 30 cc/kg body weight due to hypotension--> total of 4 L -Patient did not require pressors. Fluid responsive hypotension. -Blood and urine cultures were obtained the emergency department -Continue cefepime and vancomycin due to frequent hospitalizations and instrumentation -ID has been consulted 05/10: Blood culture x 2 negative for 48 hours. Urine culture shows Pseudomonas aeruginosa more than thousand colonies, resistant to piperacillin/tazobactam. Patient on IV cefepime ID consult requested. Discontinue vancomycin. Patient recommended 4 more days of ciprofloxacin. Patient did not move bowel since 05/04. Patient large body therefore x-ray wound be appropriate therefore CT abdomen/pelvis with oral contrast only ordered. Patient given Dulcolax 10 mg oral 1 dose. MiraLAX ordered. Patient already on senna S. Will cancel the discharge today. 05/11: Patient afebrile. CT abdomen shows multiple gallbladder stones and features of acute gastritis with GB wall thickening and stranding of surrounding fat similar. Liver normal. RUQ sonogram shows normal distended gallbladder with GB wall 5 mm. No pericholecystic fluid or Peter sign. Multiple GB stones. Patient does not have abdominal pain. Surgery is consulted. Liver chemistry shows chronically elevated alkaline phosphatase although improving. ALT AST normal although ALT is low. TB normal. Repeat liver chemistry today 05/12: HIDA scan shows no gallbladder activity. Radiotracer not found in gallbladder up to 120 minutes and therefore probably cystic duct obstruction. Discussed with the surgeon. Patient does not have abdominal pain. Patient has difficulty in swallowing and was on soft bite sized food but is still feels food stuck in the midesophagus therefore GI consulted for esophageal dysphagia and possible EGD. He states he feels dysphagia after the of April surgery. Denies prior EGD or history of dysphagia or dilatation. Patient also had cardiac stent in March therefore could not come out of Plavix. In view of multiple comorbidities and risk of complication including thromboembolism and cardiac complications and patient not having abdominal pain, observation with wait and watch recommended. Discussed with the surgery and the patient in detail. 05/13: No acute change. Discussed with the imaging findings of CT scan, ultrasound and HIDA scan to patient's in the room. Patient does not have a bdominal pain. Plan for EGD for assessment of esophageal dysphagia. Patient has problem with swallowing pills feels like it stuck in the chest. 05/14: EGD was done on 05/14/2023 as mentioned below. Liquid diet yesterday. Advance to soft diet. Patient is stated his swallowing has improved after di latation. Impressions : - Moderate Schatzki ring. Dilated. - Z-line irregular, 41 cm from the incisors. Biopsied. - Small hiatal hernia. - No gross lesions in the first portion of the duodenum. Recommendations : Liquid diet - Use Protonix (pantoprazole) 40 mg PO BID for 12 weeks. - Chest pain atypical noncardiac -Patient does have a history of coronary disease -Initial troponin was unremarkable at 27 with repeat pending -EKG shows chronic atrial fibrillation without any ST-T wave changes concerning for acute ischemia -Patient is on Ranexa at home so we will continue 05/10: With 3 serial troponins negative, ACS ruled out. TEODORO -Suspect related to decreased perfusion from hypotension however patient did just have Adams removed -Bladder scan as needed -IV fluids as noted above -Keep maps greater than 65 05/10: BUNs/creatinine 02/02.13. 05/12: Patient has hypokalemia. Serum magnesium phosphorus normal. IV potassium replacement ordered. 05/13 K3.6. 05/23 potassium 3.6. Hypotension -Secondary to the above -Baseline appears to run in the 140s to 150s systolic -89 on presentation -Fluid boluses as above 05/10: Patient blood pressure is on the higher side. Resume metoprolol and isosorbide mononitrate. 05/14: Hypotension resolved. Recent epidural abscess/osteomyelitis of lumbar spine -Patient has completed oral antibiotics however it does appear he is still on amoxicillin despite him telling me his completed antibiotics -Continue home amoxicillin--> cefepime should cover but I do not want to get this lost if cefepime discontinued depending on culture results -Not currently having any back pain -Monitor clinically with low threshold for imaging if back pain develops 05/13: Need ID follow-up. LILI -Continue home CPAP CAD/HTN/HPL - reports he had a stent in February -Continue Plavix and Coumadin -Continue high-dose atorvastatin -Hold antihypertensives due to hypotension on presentation -Continue home Ranexa GERD with history of GI bleed -Continue twice daily PPI -Continue Carafate 05/12: Hemoglobin low severe anemia 7.9 slowly decreased from 8.4. Platelet count normal. Continue twice daily PPI changed from oral to IV. Reticulocyte panel shows increased immature reticulocyte fraction suggestive of reactive bone marrow. Iron study shows low iron, low TIBC saturation normal and ferritin high suggestive of anemia of chronic disease. Chronic atrial fibrillation -Patient is in rate controlled A-fib at this time -Hold metoprolol for now due to hypotension but low threshold to reinitiate if blood pressure stabilizes to avoid tachycardia -Warfarin dose increased to 5 mg daily. Patient not get warfarin yesterday therefore give 1 now follow INR 05/10: Today INR is 1.9. Continue warfarin 5 mg daily. 05/12 INR is 2.5 therefore hold warfarin. BPH with obstruction -Patient had urinary retention postoperatively and had Adams removed after about [address] [facility]. -Follow for urine output -Continue home Flomax -Bladder scan as needed Patient is very incontinent Polyarthritis -Continue home hydroxychloroquine Depression -Continue home citalopram Debility -PT/OT consultation -Patient will need to be discharged back to skilled facility once medically stabilized Morbid obesity -BMI is 42.1 -Recommend weight loss -Complicates treatment, prognosis, outcomes DVT prophylaxis -INR is subtherapeutic at 1.7 -Will give subcu heparin 3 times daily until INR is therapeutic 05/10: INR increased to 1.9. Warfarin was increased to 5 mg on 05/10. CODE STATUS Full code Discharge medication reconciliation done. Discharge follow-up instructions completed. Discharge process discussed with the patient and all questions were answered to patient's satisfaction. Follow with PCP in 1 to 2 weeks Total time spent, exact 35 minutes on discharge meds reconciliation, examination, coordination of care with nurses and ancillary staff, review of imaging and blood test and discussion with the patient on follow-up instructi ons. Medications at Discharge Home Medications citalopram 20 mg tablet 20 mg PO DAILY MOOD 09/21/14 tamsulosin 0.4 mg capsule 0.4 mg PO DAILY bph 05/18/19 hydroxychloroquine 200 mg tablet 200 mg PO BID arthritis 04/25/21 Handicap Placard #1 ea 07/05/21 isosorbide mononitrate 60 mg tablet,extended release 24 hr 60 mg PO BID heart 1 04/20/22 nitroglycerin 0.4 mg sublingual tablet 0.4 mg sublingual Q5M PRN chest pain 02/17/23 clopidogrel 75 mg tablet 75 mg PO DAILY blood thinner 04/11/23 folic acid 1 mg tablet 1 mg PO DAILY vitamin 04/11/23 losartan 50 mg tablet 50 mg PO DAILY bp 04/11/23 ondansetron HCl 4 mg tablet 4 mg PO Q4H PRN nausea 04/11/23 sucralfate 1 gram tablet 1 g PO 4X/DAY stomach 04/11/23 acetaminophen 500 mg tablet 1,000 mg PO BID 05/09/23 aluminum-mag hydroxide-simethicone 200 mg-200 mg-20 mg/5 mL oral susp (Advanced Antacid-Antigas) 30 ml PO DAILY PRN GERD 05/09/23 amoxicillin 875 mg tablet 875 mg PO Q12H OSTEOMYELITIS 05/09/23 atorvastatin 80 mg tablet 80 mg PO QHS CHOLESTEROL 05/09/23 food supplemt, lactose-reduced 0.06 gram-1 kcal/mL oral liquid (Boost High Protein) 120 ml PO BIDCM 05/09/23 melatonin 3 mg tablet 3 mg PO QHS PRN sleep 05/09/23 metoprolol succinate 50 mg tablet,extended release 24 hr 50 mg PO BID BLOOD PRESSURE 05/09/23 mirtazapine 15 mg tablet 15 mg PO QHS 05/09/23 naloxone 4 mg/actuation nasal spray 4 mg intranasal Q3M PRN opioid overdose 05/09/23 nystatin 100,000 unit/gram topical powder 1 applic topical BID SKIN IRRITATION 05/09/23 potassium chloride 20 mEq/15 mL oral liquid 20 meq PO DAILY 05/09/23 ranolazine 500 mg tablet,extended release,12 hr 500 mg PO BID HEART DISEASE 05/09/23 scopolamine base 1 mg over 3 days transdermal patch 1 patch transdermal Q3D PRN nausea and vomiting 05/09/23 sennosides 8.6 mg-docusate sodium 50 mg tablet (Senna with Docusate Sodium) 1 tab-cap PO BID 05/09/23 zinc oxide 20 % topical ointment 1 applic topical BID 05/09/23 bisacodyl 10 mg rectal suppository (Dulcolax (bisacodyl)) 10 mg AR DAILY PRN constipation #30 ea 05/11/23 ciprofloxacin HCl 500 mg tablet (Cipro) 500 mg PO BID 4 days #8 tabs 05/11/23 cyclobenzaprine 10 mg tablet 10 mg PO Q8H PRN pain 30 days #0 tabs 05/11/23 warfarin 5 mg tablet (Jantoven) 5 mg PO DINNER #0 tabs 05/11/23 oxycodone 5 mg tablet 5 - 10 mg (1 - 2 x 5 mg) PO Q6H 3 days #10 tabs 05/15/23 pantoprazole 40 mg tablet,delayed release 40 mg PO Q12H stomach 1 month #60 tabs 05/15/23 polyethylene glycol 3350 17 gram oral powder packet 17 g PO DAILY #0 ea 05/15/23 Physical Exam Narrative Seen and examined. Patient does not have abdominal pain. No acute issues overnight.Patient is moving bowel. Patient had EGD for dysphagia. CT abdomen/pelvis shows colonic fecal matter and patient had 3 bowel movements w ith the stool softeners and Dulcolax given. CT abdomen/pelvis and right upper quadrant sonogram shows acute cholecystitis with multiple gallstones. HIDA scan consistent with cystic duct obstruction with no radioactivity found in the gallbladder. Patient improved. Physical exam General: Alert, Oriented x3, Cooperative HEENT: Atraumatic, PERRLA, EOMI, Normocephalic Oral: Oral mucosa moist. No Gingival or Mucosal Lesions/ Ulcerations Neck: Supple, No JVD, Negative Carotid Bruits Chest wall/Lungs: Air entry diminished in bilateral lung bases. No crepitation/rhonchi Cardiovascular: A-fib, irregular rhythm, Normal S1, Normal S2, No M/G/R Abdomen: Bowel Sounds Present, Soft, Non Tender, Non-Distended. No Peter sign or GB palpable : No dysuria. No renal angle tenderness. No suprapubic tenderness. Extremities: No edema, Capillary Refill Less than 3 Seconds Skin: No rashes, No breakdown Musculoskeletal: Weakness, chronic of lower extremities, 4+/5 at hips and knee joints. Patient can lift his legs. Right TKR. Neurological: Cranial nerves II-XII grossly intact, DTR 2+/4. No acute focal neurological deficit. Psych/Mental Status: Flat affect. Medical Records Data Medical Nutrition Assessment Dietitian: Malnutrition Criteria Met Start: 05/10/23 10:04 Freq: Status: Active Protocol: Document 05/14/23 11:58 SLA (Rec: 05/14/23 11:58 [facility] [id number]) Nutrition Malnutrition Evidence of Malnutrition Exists Yes Malnutrition (severe): Acute Illness/Injury Evidenced By Suboptimal Energy Intake ( Severe),Weight Loss (Severe) Clinical Problem Acute Disease or Injury Related Malnutrition Etiology severe, acute malnutrition related to inadequate energy intake w/ acute hospitalizations, nausea/ emesis, swallowing difficulty Signs/Symptoms as evidenced by unintentional wt loss 17% x 3 months, 6% wt loss x 1 month 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 Weight / BMI Weight Weight: 266 lb 1.567 oz Body Mass Index (BMI) 39.2 ABG / Lab / Microbiology Data 05/14/23 02:45 05/14/23 02:45 Laboratory: Laboratory Results - last 24 hr 05/13/23 10:30: Vitamin B12 744 05/15/23 06:26: PT 17.8 H, INR 1.5 Microbiology: Microbiology 05/09/23 15:29 Blood Culture (Wb) - Right Hand Blood Culture - Final No growth in 5 days. 05/09/23 15:45 Blood Culture (Wb) - Anticubital Right Blood Culture - Final No growth in 5 days. 05/09/23 16:54 Urine Catheter - Catheter Urine Culture - Final Pseudomonas aeruginosa 05/09/23 15:45 Mucosa - Nose SARS-CoV-2, Influenza & RSV (PCR) - Final Meaningful Use Info Meaningful Use Diagnoses (Choose all that apply): None applicable Discharge Plan Admission Admit Date/Time: 05/09/23 18:05 Primary Reason for Your Visit: Pseudomonas UTI related sepsis Attending Provider: Wild Martinez Primary Care Provider: Bryce Zamarripa Consulting Providers: Noa Leyva; Merritt Soares; Jennifer Nguyễn Discharge Orders/Prescriptions Prescriptions: New warfarin [Jantoven] 5 mg Tablet 5 mg PO DINNER Qty: 0 0RF Rx Instructions: Keep INR between 2-3 about 2.5. ciprofloxacin HCl [Cipro] 500 mg tablet 500 mg PO BID 4 Days Qty: 8 0RF bisacodyl [Dulcolax (bisacodyl)] 10 mg suppository 10 mg AR DAILY PRN (Reason: constipation) Qty: 30 0RF polyethylene glycol 3350 17 gram Powder In Packet 17 g PO DAILY Qty: 0 0RF Continued hydroxychloroquine 200 mg tablet 200 mg PO BID (DME) Handicap Placard See Rx Instructions .Route .MEDSUPPLY Qty: 1 0RF Rx Instructions: Good from 07/05/2021-07/05/2026; citalopram 20 MG tablet 20 mg PO DAILY tamsulosin 0.4 MG capsule 0.4 mg PO DAILY isosorbide mononitrate 60 mg tablet extended release 24 hr 60 mg PO BID nitroglycerin 0.4 mg tablet, sublingual 0.4 mg sublingual Q5M PRN (Reason: chest pain) clopidogrel 75 mg tablet 75 mg PO DAILY folic acid 1 mg tablet 1 mg PO DAILY losartan 50 mg tablet 50 mg PO DAILY Hold Instructions: Hold for 4 days. Hold for SBP less than 130 mmHg ondansetron HCl 4 mg tablet 4 mg PO Q4H PRN sucralfate 1 gram tablet 1 g PO 4X/DAY potassium chloride 20 mEq/15 mL liquid 20 meq PO DAILY scopolamine base 1 mg over 3 days patch 3 day 1 patch transdermal Q3D PRN (Reason: nausea and vomiting) alum-mag hydroxide-simeth [Advanced Antacid-Antigas] 200-200-20 mg/5 mL suspension 30 ml PO DAILY PRN (Reason: GERD) melatonin 3 mg tablet 3 mg PO QHS PRN (Reason: sleep) metoprolol succinate 50 mg tablet extended release 24 hr 50 mg PO BID atorvastatin 80 mg tablet 80 mg PO QHS mirtazapine 15 mg tablet 15 mg PO QHS naloxone 4 mg/actuation spray,non-aerosol 4 mg intranasal Q3M PRN (Reason: opioid overdose) Rx Instructions: spray 1 dose into ONE nostril; alternate nostrils w each dose until help arrives nystatin 100,000 unit/gram powder 1 applic topical BID Rx Instructions: APPLY TO AFFECTED AREAS TWICE DAILY ranolazine 500 mg tablet extended release 12 hr 500 mg PO BID sennosides-docusate sodium [Senna with Docusate Sodium] 8.6-50 mg tablet 1 tab-cap PO BID zinc oxide 20 % ointment 1 applic topical BID acetaminophen 500 mg tablet 1,000 mg PO BID amoxicillin 875 mg tablet 875 mg PO Q12H Boost High Protein 0.06 gram- 1 kcal/mL liquid 120 ml PO BIDCM pantoprazole 40 mg tablet,delayed release (DR/EC) 40 mg PO Q12H 30 Days Qty: 60 2RF Rx Instructions: for 12 weeks Changed cyclobenzaprine 10 mg tablet 10 mg PO Q8H PRN (Reason: pain) 30 Days Qty: 0 0RF oxycodone 5 mg Tablet 5 - 10 mg PO Q6H 3 Days Qty: 10 0RF Discontinued warfarin 4 mg tablet 4 mg PO QHS Protocol: Dose Management Condition: Sunday Dose/Route: 4 mg Instruction: 1 x 4 mg tablet Condition: Sunday Dose/Route: 8 mg Instruction: 2 x 4 mg tablets Condition: Sunday Dose/Route: 8 mg Instruction: 2 x 4 mg tablets Condition: Sunday Dose/Route: 8 mg Instruction: 2 x 4 mg tablets Condition: Dose/Route: 8 mg Instruction: 2 x 4 mg tablets Condition: Sunday Dose/Route: 8 mg Instruction: 2 x 4 mg tablets Condition: Sunday Dose/Route: 4 mg Instruction: 1 x 4 mg tablet Protocol Text: Adjustment Start Date: Sunday02/12/23 INR Value: 1.6 INR Date: 02/12/23 Recheck Date: 02/19/23 Referrals / Follow Up: Bryce Zamarripa MD [Primary Care Provider] - Hal Phipps DO [Med Staff - Active Staff] - Within 1 Month Cornell Gunter MD [Med Staff - Active Staff] - Merritt Soares MD [Med Staff - Active Staff] - Within 1 Month Jennifer Nguyễn MD [Med Staff - Active Staff] - Within 1 Month Disposition Disposition (needs filled in before D/C Order can be placed): Residential Facility Charges/Coding Visit Charges Inpatient E&M: 25207 Disch Hosp >30min
[2023-05-15 08:02] LABS: AST(SGOT) 21 U/L (15-37); Alanine Aminotransfer ALT/SGPT 9 U/L (16-61); Albumin, Serum 2.3 g/dL (3.2-5.0); Alkaline Phosphatase 100 U/L (45-117); Bilirubin, Direct 0.17 mg/dL (0.00-0.30); Globulin 4.7 g/dL (2.2-4.2)
--- NOTE | 2023-05-15 08:17 | PCM.PN.SRG ---
Subjective Subjective Patient still denies any abdominal pain with p.o. Patient did have an EGD and dilation of a Schatzki's ring yesterday. Objective Data Objective Data Vital Signs: Vital Signs Temp Pulse Resp BP Pulse Ox O2 Del Method FiO2 97.8 F 59 L 16 148/60 H 100 Room Air 21 05/15/23 08:04 05/15/23 08:04 05/15/23 08:04 05/15/23 08:04 05/15/23 08:04 05/15/23 08:04 05/14/23 03:50 Oxygen Delivery Method Room Air Weight: 266 lb 1.567 oz Body Mass Index (BMI) 39.2 Intake & Output: Intake and Output for Last 24 Hours 05/13/23 05/14/23 05/15/23 23:59 23:59 23:59 Intake Total 333.25 / 633.25 810 / 810 Output Total 3515 / 4065 1050 / 1050 Balance -3181.75 / -3431.75 -240 / -240 Medical Nutrition Assessment Dietitian: Malnutrition Criteria Met Start: 05/10/23 10:04 Freq: Status: Active Protocol: Document 05/14/23 11:58 [facility] (Rec: 05/14/23 11:58 [facility] [id number]) Nutrition Malnutrition Evidence of Malnutrition Exists Yes Malnutrition (severe): Acute Illness/Injury Evidenced By Suboptimal Energy Intake ( Severe),Weight Loss (Severe) Clinical Problem Acute Disease or Injury Related Malnutrition Etiology severe, acute malnutrition related to inadequate energy intake w/ acute hospitalizations, nausea/ emesis, swallowing difficulty Signs/Symptoms as evidenced by unintentional wt loss 17% x 3 months, 6% wt loss x 1 month guard captain; estimated PO intake meeting <75% of estimated energy needs >3 months guard captain Status Active Problem Recommendation Dietitian Recommendations/Changes Continue liberal regular diet w/ ensure clear w/ medpass; CUSTOMER RELATIONS COORDINATOR consult, texture/ consistency modifications per CUSTOMER RELATIONS COORDINATOR as needed. Lab / Micro Data 05/14/23 02:45 05/14/23 02:45 Labs: Laboratory Results - last 24 hr 05/15/23 06:26: PT 17.8 H, INR 1.5, Total Bilirubin 0.40, Direct Bilirubin 0.17, AST 21, ALT 9 L, Alkaline Phosphatase 100, Total Protein 7.0, Albumin 2.3 L, Globulin 4.7 H Micro: Microbiology 05/09/23 15:29 Blood Culture (Wb) - Right Hand Blood Culture - Final No growth in 5 days. 05/09/23 15:45 Blood Culture (Wb) - Anticubital Right Blood Culture - Final No growth in 5 days. 05/09/23 16:54 Urine Catheter - Catheter Urine Culture - Final Pseudomonas aeruginosa 05/09/23 15:45 Mucosa - Nose SARS-CoV-2, Influenza & RSV (PCR) - Final Physical Exam Const oriented x3 and no apparent distress Resp normal respiratory effort Cardio regular rate GI soft to palpation and non-tender Inspection: Negative for abdominal distention Assessment & Plan Assessment/Plan (1) Thickening of wall of gallbladder: PLAN: Plan Continue conservative measures as patient is not having any abdominal pain associated with food No diet restrictions from surgical standpoint--patient and are aware that patient started having abdominal pain after eating would look more into his gallbladder and possibly having cholecystectomy/cholecystostomy. No surgical intervention being considered at this time Patient on Plavix and Coumadin Jennifer Nguyễn M.D. Pager: [phone] [facility] [address] [place] [address], [facility], [address] [place] [address] Office: [phone] Charges/Coding Visit Charges Inpatient E&M: 52247 Subs Hosp L2
--- NOTE | 2023-05-15 09:36 | PHA.DC.MR.R ---
Pharmacy [place] Med Reconciliation Pharmacy Service has performed discharge medication reconciliation for this patient. The patient's discharge medication list was reviewed for discrepancies and discrepancies were resolved. Medications at Discharge Home Medications citalopram 20 mg tablet 20 mg PO DAILY MOOD 09/21/14 tamsulosin 0.4 mg capsule 0.4 mg PO DAILY bph 05/18/19 hydroxychloroquine 200 mg tablet 200 mg PO BID arthritis 04/25/21 Handicap Placard #1 ea 07/05/21 isosorbide mononitrate 60 mg tablet,extended release 24 hr 60 mg PO BID heart 02/17/23 nitroglycerin 0.4 mg sublingual tablet 0.4 mg sublingual Q5M PRN chest pain 02/17/23 clopidogrel 75 mg tablet 75 mg PO DAILY blood thinner 04/11/23 folic acid 1 mg tablet 1 mg PO DAILY vitamin 04/11/23 losartan 50 mg tablet 50 mg PO DAILY bp 04/11/23 ondansetron HCl 4 mg tablet 4 mg PO Q4H PRN nausea 04/11/23 sucralfate 1 gram tablet 1 g PO 4X/DAY stomach 04/11/23 acetaminophen 500 mg tablet 1,000 mg PO BID 05/09/23 aluminum-mag hydroxide-simethicone 200 mg-200 mg-20 mg/5 mL oral susp (Advanced Antacid-Antigas) 30 ml PO DAILY PRN GERD 05/09/23 amoxicillin 875 mg tablet 875 mg PO Q12H OSTEOMYELITIS 05/09/23 atorvastatin 80 mg tablet 80 mg PO QHS CHOLESTEROL 05/09/23 food supplemt, lactose-reduced 0.06 gram-1 kcal/mL oral liquid (Boost High Protein) 120 ml PO BIDCM 05/09/23 melatonin 3 mg tablet 3 mg PO QHS PRN sleep 05/09/23 metoprolol succinate 50 mg tablet,extended release 24 hr 50 mg PO BID BLOOD PRESSURE 05/09/23 mirtazapine 15 mg tablet 15 mg PO QHS 05/09/23 naloxone 4 mg/actuation nasal spray 4 mg intranasal Q3M PRN opioid overdose 05/09/23 nystatin 100,000 unit/gram topical powder 1 applic topical BID SKIN IRRITATION 05/09/23 potassium chloride 20 mEq/15 mL oral liquid 20 meq PO DAILY 05/09/23 ranolazine 500 mg tablet,extended release,12 hr 500 mg PO BID HEART DISEASE 05/09/23 scopolamine base 1 mg over 3 days transdermal patch 1 patch transdermal Q3D PRN nausea and vomiting 05/09/23 sennosides 8.6 mg-docusate sodium 50 mg tablet (Senna with Docusate Sodium) 1 tab-cap PO BID 05/09/23 zinc oxide 20 % topical ointment 1 applic topical BID 05/09/23 bisacodyl 10 mg rectal suppository (Dulcolax (bisacodyl)) 10 mg AK DAILY PRN constipation #30 ea 05/11/23 ciprofloxacin HCl 500 mg tablet (Cipro) 500 mg PO BID 4 days #8 tabs 05/11/23 cyclobenzaprine 10 mg tablet 10 mg PO Q8H PRN pain 30 days #0 tabs 05/11/23 warfarin 5 mg tablet (Jantoven) 5 mg PO DINNER #0 tabs 05/11/23 oxycodone 5 mg tablet 5 - 10 mg (1 - 2 x 5 mg) PO Q6H 3 days #10 tabs 05/15/23 pantoprazole 40 mg tablet,delayed release 40 mg PO Q12H stomach 1 month #60 tabs 05/15/23 polyethylene glycol 3350 17 gram oral powder packet 17 g PO DAILY #0 ea 05/15/23
[2023-05-15] MEDS: Citalopram 20 MG Tablet PO (10:04)
[2023-05-15] MEDS: Pantoprazole Sodium 40 MG in 0.9% Normal Saline (100mL MB+) 100 ML 330 MG IV ×2 (10:04→23:54)
[2023-05-15] MEDS: Folic Acid 1 MG Tablet PO (10:04)
[2023-05-15] MEDS: Isosorbide Mononitrate 60 MG Tablet PO ×2 (10:04→23:56)
[2023-05-15] MEDS: Tamsulosin HCl 0.4 MG Capsule PO (10:04)
[2023-05-15] MEDS: Ranolazine 500 MG Tablet PO ×2 (10:05→23:51)
[2023-05-15] MEDS: Senna/Docusate Sodium 1 Tablet 2 TABLET PO ×2 (10:05→23:52)
[2023-05-15] MEDS: Polyethylene Glycol 3350 17 GM PACKET PO (10:05)
[2023-05-15] MEDS: Hydroxychloroquine 200 MG Tablet PO ×2 (10:05→23:51)
[2023-05-15] MEDS: Clopidogrel Bisulfate 75 MG Tablet PO (10:05)
[2023-05-15] MEDS: Zinc Oxide 30gm Tube 1 APPLIC TOPICAL ×2 (10:06→23:52)
[2023-05-15] MEDS: Ensure Clear 120 ML Liquid PO (10:47)
--- NOTE | 2023-05-15 15:16 | CASEMGMT ---
Discharge Planning Discharge orders, signed med list, covid results, and transport time sent to [facility] via [facility]. Physicians will transport patient by wheelchair at 3p. Nursing, SW, and patient updated. Patient stated that he would notify his . Jayne Henry, Discharge Planning Asst.
--- NOTE | 2023-05-15 16:10 | EKG12_ITS ---
Test Reason : Blood Pressure : / mmHG Vent. Rate : 062 BPM Atrial Rate : 062 BPM P-R Int : 096 ms QRS Dur : 088 ms QT Int : 476 ms P-R-T Axes : -05 -02 017 degrees QTc Int : 483 ms Sinus rhythm with short NH Inferior infarct , age undetermined Abnormal ECG Confirmed by EDUARDO LENZ, HERMAN ([id number]), photo editor RUEL LYNN ([id number]) on 05/17/2023 6:26:50 AM Referred By: ABISAI Confirmed By:HERMAN CLARK MD
--- NOTE | 2023-05-15 16:14 | CASEMGMT ---
Patient's discharge is canceled as patient had some medical issues arise. Nadeen Lucas [employer] MERARY
--- NOTE | 2023-05-15 16:19 | RAD_ITS ---
INDICATION: sob EXAMINATION/TECHNIQUE: X-RAY - XR Chest 1 View COMPARISON: May 09, 2023 FINDINGS: LINES/DEVICES: None. LUNGS: No consolidation, edema or effusion. No pneumothorax. MEDIASTINUM AND CARDIOVASCULAR STRUCTURES: Cardiac silhouette not enlarged. Central airways and mediastinal contour are unremarkable. BONES AND SOFT TISSUES: Vertebral rods are present. RAD/Chest 1 View (Portable) IMPRESSION: No radiographic evidence of acute cardiopulmonary disease. Electronically Signed: Scott Rod DO at 16:35 EDT ,
--- NOTE | 2023-05-15 16:25 | PN.HOSP_ITS ---
Reason for Visit Reason for Visit: Diagnoses Sepsis, unspecified organism (05/09/23) Elevated white blood cell count, unspecified (05/09/23) Acidosis, unspecified (05/09/23) Other specified diseases of gallbladder (05/09/23) Discitis, unspecified, lumbar region (05/09/23) Other low back pain (05/09/23) Acute kidney failure, unspecified (05/09/23) Urinary tract infection, site not specified (05/09/23) Chest pain, unspecified (05/09/23) Abnormal coagulation profile (05/09/23) Wedge compression fracture of T11-T12 vertebra, initial encounter for closed fracture (05/09/23) Subjective Subjective Patient had rapid response about 4 PM with chest pressure. Patient was waiting for the discharge. In the morning he was on baseline rating good. He had EGD and esophageal dilatation for Schatzki ring yesterday Objective Data Objective Data Vital Signs: Vital Signs Temp Pulse Resp BP Pulse Ox O2 Del Method O2 Flow Rate 98.0 F 62 14 137/66 H 100 Nasal Cannula 2 05/15/23 14:00 05/15/23 16:08 05/15/23 14:00 05/15/23 16:08 05/15/23 16:08 05/15/23 16:08 05/15/23 16:08 FiO2 21 05/14/23 03:50 Oxygen Flow Rate (L/min) 2 Oxygen Delivery Method Nasal Cannula Weight: 266 lb 1.567 oz Body Mass Index (BMI) 39.2 Intake & Output: Intake and Output for Last 24 Hours 05/13/23 05/14/23 05/15/23 23:59 23:59 23:59 Intake Total 333.25 / 633.25 920 / 920 Output Total 3515 / 4065 1700 / 1700 Balance -3181.75 / -3431.75 -780 / -780 Medical Nutrition Assessment Dietitian: Malnutrition Criteria Met Start: 05/10/23 1 0:04 Freq: Status: Active Protocol: Document 05/14/23 11:58 [facility] (Rec: 05/14/23 11:58 [facility] [id number]) Nutrition Malnutrition Evidence of Malnutrition Exists Yes Malnutrition (severe): Acute Illness/Injury Evidenced By Suboptimal Energy Intake ( Severe),Weight Loss (Severe) Clinical Problem Acute Disease or Injury Related Malnutrition Etiology severe, acute malnutrition related to inadequate energy intake w/ acute hospitalizations, nausea/ emesis, swallowing difficulty Signs/Symptoms as evidenced by unintentional wt loss 17% x 3 months, 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 Lab / Micro Data 05/14/23 02:45 05/14/23 02:45 Labs: Laboratory Results - last 24 hr 05/15/23 06:26: PT 17.8 H, INR 1.5, Total Bilirubin 0.40, Direct Bilirubin 0.17, AST 21, ALT 9 L, Alkaline Phosphatase 100, Total Protein 7.0, Albumin 2.3 L, Globulin 4.7 H Micro: Microbiology 05/15/23 14:27 Nasal Secretion SARS-CoV-2 Antigen (Rapid) - Final 05/09/23 15:29 Blood Culture (Wb) - Right Hand Blood Culture - Final No growth in 5 days. 05/09/23 15:45 Blood Culture (Wb) - Anticubital Right Blood Culture - Final No growth in 5 days. 05/09/23 16:54 Urine Catheter - Catheter Urine Culture - Final Pseudomonas aeruginosa 05/09/23 15:45 Mucosa - Nose SARS-CoV-2, Influenza & RSV (PCR) - Final Physical Exam Narrative Seen and examined. Complain of chest pressure about 4 PM localized midsternal from right to left. No radiation. Patient also mild short of breath, lethargic and sleepy. He was also sweating and diaphoretic Physical exam General: Alert, Oriented x3, Cooperative in the morning but in afternoon [employer] months was lethargic. HEENT: Atraumatic, PERRLA, EOMI, Normocephalic Oral: Oral mucosa moist. No Gingival or Mucosal Lesions/ Ulcerations Neck: Supple, No JVD, Negative Carotid Bruits Chest wall/Lungs: Air entry diminished in bilateral lung bases. No crepitation/rhonchi Cardiovascular: A-fib, irregular rhythm, Normal S1, Normal S2, No M/G/R Abdomen: Bowel Sounds Present, Soft, Non Tender, Non-Distended. No Peter sign or GB palpable : No dysuria. No renal angle tenderness. No suprapubic tenderness. Extremities: No edema, Capillary Refill Less than 3 Seconds Skin: No rashes, No breakdown Musculoskeletal: Weakness, chronic of lower extremities, 4+/5 at hips and knee joints. Patient can lift his legs. Right TKR. Neurological: Cranial nerves II-XII grossly intact, DTR 2+/4. No acute focal neurological deficit. Psych/Mental Status: Flat affect. Assessment & Plan Assessment/Plan (1) Discitis of lumbar region: (2) Intractable low back pain: PLAN: Plan 72-year-old gentleman was admitted with chest discomfort around noon time from [facility] but it was felt that he has a chronic chest discomfort and is on Ranexa on home medication. He also had recent hospitalization in April for intractable back pain from epidural abscess from where he was discharged to [facility] with Adams catheter. Adams catheter was removed yesterday. Patient is stated that he could not get warmth and was found hypotensive in the ED and clinical diagnosis of sepsis was made 1. Sepsis secondary to suspected urinary tract infection: Patient is admitted to ICU. -Patient has leukocytosis, lactic acidosis, TEODORO, hypotension--> meets criteria per SEP 1. Lactic acidosis 3.7. Repeat 1 normal. -Fluid boluses given at 30 cc/kg body weight due to hypotension--> total of 4 L -Patient did not require pressors. Fluid responsive hypotension. -Blood and urine cultures were obtained the emergency department -Continue cefepime and vancomycin due to frequent hospitalizations and instrumentation -ID has been consulted 05/10: Blood culture x 2 negative for 48 hours. Urine culture shows Pseudomonas aeruginosa more than thousand colonies, resistant to piperacillin/tazobactam. Patient on IV cefepime ID consult requested. Discontinue vancomycin. Patient recommended 4 more days of ciprofloxacin. Patient did not move bowel since 05/04. Patient large body therefore x-ray wound be appropriate therefore CT abdomen/pelvis with oral contrast only ordered. Patient given Dulcolax 10 mg oral 1 dose. MiraLAX ordered. Patient already on senna S. Will cancel the discharge today. 05/11: Patient afebrile. CT abdomen shows multiple gallbladder stones and features of acute gastritis with GB wall thickening and stranding of surrounding fat similar. Liver normal. RUQ sonogram shows normal distended gallbladder with GB wall 5 mm. No pericholecystic fluid or Peter sign. Multiple GB stones. Patient does not have abdominal pain. Surgery is consulted. Liver chemistry shows chronically elevated alkaline phosphatase although improving. ALT AST normal although ALT is low. TB normal. Repeat liver chemistry today 05/12: HIDA scan shows no gallbladder activity. Radiotracer not found in gallbladder up to 120 minutes and therefore probably cystic duct obstruction. Discussed with the surgeon. Patient does not have abdominal pain. Patient has difficulty in swallowing and was on soft bite sized food but is still feels food stuck in the midesophagus therefore GI consulted for esophageal dysphagia and possible EGD. He states he feels dysphagia after the of April surgery. Denies prior EGD or history of dysphagia or dilatation. Patient also had cardiac stent in March therefore could not come out of Plavix. In view of multiple comorbidities and risk of complication including thromboembolism and cardiac complications and patient not having abdominal pain, observation with wait and watch recommended. Discussed with the surgery and the patient in detail. 05/13: No acute change. Discussed with the imaging findings of CT scan, ultrasound and HIDA scan to patient's in the room. Patient does not have abdominal pain. Plan for EGD for assessment of esophageal dysphagia. Patient has problem with swallowing pills feels like it stuck in the chest. 05/14: EGD was done on 05/14/2023 as mentioned below. Liquid diet yesterday. Advance to soft diet. Patient is stated his swallowing has improved after dilatation. 05/14 during rapid response: Vitals were taken glucose 124, heart rate 62/min, BP 137/66, respiratory rate 14/min, pulse ox 100% on 2 L of oxygen. Patient complain of mild chest pressure lethargic, short of breath and diaphoretic. Rapid response was called. Twelve-lead EKG was done, heart rate 62/min, short CT interval, old inferior infarct, QTc 483 ms. Serial troponins were ordered. CBC, BMP, liver chemistry, magnesium, phosphorus, CPK and ABG ordered. Chest x-ray portable ordered. last echo in May 2022 shows EF 60%, mild TR PASP 39 mmHg. 2D echo ordered. Impressions : - Moderate Schatzki ring. Dilated. - Z-line irregular, 41 cm from the incisors. Biopsied. - Small hiatal hernia. - No gross lesions in the first portion of the duodenum. Recommendations : Liquid diet - Use Protonix (pantoprazole) 40 mg PO BID for 12 weeks. - Chest pain atypical noncardiac -Patient does have a history of coronary disease -Initial troponin was unremarkable at 27 with repeat pending -EKG shows chronic atrial fibrillation without any ST-T wave changes concerning for acute ischemia -Patient is on Ranexa at home so we will continue 05/10: With 3 serial troponins negative, ACS ruled out. TEODORO -Suspect related to decreased perfusion from hypotension however patient did just have Adams removed -Bladder scan as needed -IV fluids as noted above -Keep maps greater than 65 05/10: BUNs/creatinine 02/02.13. 05/12: Patient has hypokalemia. Serum magnesium phosphorus normal. IV potassium replacement ordered. 05/13 K3.6. 05/23 potassium 3.6. Hypotension -Secondary to the above -Baseline appears to run in the 140s to 150s systolic -89 on presentation -Fluid boluses as above 05/10: Patient blood pressure is on the higher side. Resume metoprolol and isosorbide mononitrate. 05/14: Hypotension resolved. Recent epidural abscess/osteomyelitis of lumbar spine -Patient has completed oral antibiotics however it does appear he is still on amoxicillin despite him telling me his completed antibiotics -Continue home amoxicillin--> cefepime should cover but I do not want to get this lost if cefepime discontinued depending on culture results -Not currently having any back pain -Monitor clinically with low threshold for imaging if back pain develops 05/13: Need ID follow-up. LILI -Continue home CPAP CAD/HTN/HPL - reports he had a stent in February -Continue Plavix and Coumadin -Continue high-dose atorvastatin -Hold antihypertensives due to hypotension on presentation -Continue home Ranexa GERD with history of GI bleed -Continue twice daily PPI -Continue Carafate 05/12: Hemoglobin low severe anemia 7.9 slowly decreased from 8.4. Platelet count normal. Continue twice daily PPI changed from oral to IV. Reticulocyte panel shows increased immature reticulocyte fraction suggestive of reactive bone marrow. Iron study shows low iron, low TIBC saturation normal and ferritin high suggestive of anemia of chronic disease. Chronic atrial fibrillation -Patient is in rate controlled A-fib at this time -Hold metoprolol for now due to hypotension but low threshold to reinitiate if blood pressure stabilizes to avoid tachycardia -Warfarin dose increased to 5 mg daily. Patient not get warfarin yesterday therefore give 1 now follow INR 05/10: Today INR is 1.9. Continue warfarin 5 mg daily. 05/12 INR is 2.5 therefore hold warfarin. BPH with obstruction -Patient had urinary retention postoperatively and had Adams removed after about 4 weeks today at [facility]. -Follow for urine output -Continue home Flomax -Bladder scan as needed Patient is very incontinent Polyarthritis -Continue home hydroxychloroquine Depression -Continue home citalopram Debility -PT/OT consultation -Patient will need to be discharged back to skilled facility once medically stabilized Morbid obesity -BMI is 42.1 -Recommend weight loss -Complicates treatment, prognosis, outcomes DVT prophylaxis -INR is subtherapeutic at 1.7 -Will give subcu heparin 3 times daily until INR is therapeutic 05/10: INR increased to 1.9. Warfarin was increased to 5 mg on 05/10. CODE STATUS Full code Discharge canceled. Charges/Coding Addendum Addendum: Total time of the visit including total time spent in counseling or coordination of care, (more than 50% of the total time, spent in obtaining medical information from nurses and other ancillary care providers,explaining to the patient about labs, imaging, diagnosis and management of active complex medical conditions), rapid response, review of EKG, review of labs and imaging is 40 minutes. Visit Charges Inpatient E&M: [id number] [facility] L3
[2023-05-15 16:28] LABS: Allen Test Positive; Base Excess -2 mmol/L (-2 to +2); Bicarbonate 22.3 mmol/L (22-26); Blood Gas Specimen Type ART; Mode Not entered; O2 Delivery Device Cannula; PO2 120 mmHG (75-100); SITE L Radial; SO2 99 % (95-99); Total Carbon Dioxide 23 mmol/L; pCO2 34.5 mmHg (35-45); pH 7.42 (7.35-7.45)
--- NOTE | 2023-05-15 16:30 | ECHOCS_ITS ---
Reason For Study: CHEST PRESSURE Procedure This was a 2D Doppler, Color Flow transthoracic echocardiogram. The study was technically difficult. Patient was scanned in supine position during reflux assessment. Contrast injection was performed. Exam performed portable in patient room. Left Ventricle Normal LV size. Left ventricular systolic function is normal. The left ventricular ejection fraction is 60 %. Stage 1 diastolic dysfunction. No regional wall motion abnormalities noted. Right Ventricle Normal size and thickness. Normal systolic function. Atria Normal left atrium. Normal right atrium. Mitral Valve Normal mitral valve. Tricuspid Valve Normal tricuspid valve. Aortic Valve Trisinus/trileaflet aortic valve. Mild focal aortic valve calcification. Pulmonic Valve Normal pulmonic valve. Great Vessels Normal aortic root. The pulmonary artery is normal size. Inferior vena cava collapse with respiration. Pericardium/Pleural No pericardial effusion. Medication Diluted definity 2ml given slow IV push to enhance endocardial definition. MMode/2D Measurements & Calculations LVIDd: 4.4 cm IVSd: 1.1 cm LVOT diam: 2.0 cm LVIDs: 2.3 cm LVPWd: 1.1 cm RVDd: 4.3 cm FS: 46.9 % LVOT area: 3.1 cm2 Ao root diam: 3.4 cm LAV(MOD-sp4): 30.8 ml LVAd ap4: 42.3 cm2 LVLd ap4: 8.7 cm EDV(MOD-sp4): 166.1 ml EDV(sp4-el): 174.1 ml LVAs ap4: 24.2 cm2 LVLs ap4: 7.3 cm ESV(MOD-sp4): 64.3 ml ESV(sp4-el): 68.0 ml EF(MOD-sp4): 61.3 % EF(sp4-el): 60.9 % LVAd ap2: 39.4 cm2 SV(MOD-sp4): 101.8 ml SV(MOD-sp2): 92.3 ml LVLd ap2: 8.8 cm EDV(MOD-sp2): 145.1 ml EDV(sp2-el): 149.9 ml LVAs ap2: 21.9 cm2 LVLs ap2: 7.5 cm ESV(MOD-sp2): 52.9 ml ESV(sp2-el): 54.3 ml EF(MOD-sp2): 63.6 % SV(sp4-el): 106.1 ml LA dimension(2D): 4.2 cm LA A4 area: 13.6 cm2 RA A4 area: 11.0 cm2 TAPSE: 2.7 cm Time Measurements MV dec time: 0.18 sec Doppler Measurements & Calculations MV E max rell: 52.9 cm/sec Lat Peak E' Rell: 13.0 cm/sec Med Peak E' Rell: 8.6 cm/sec MV A max rell: 73.2 cm/sec E/E' lat: 4.1 E/E' med: 6.2 MV E/A: 0.72 Ao V2 max: 141.2 cm/sec LV V1 max: 105.4 cm/sec MV dec slope: 294.9 cm/sec2 Ao max P.0 mmHg LV V1 max P.4 mmHg Ao V2 mean: 99.8 cm/sec LV V1 mean P.8 mmHg Ao mean P.4 mmHg LV V1 mean: 79.6 cm/sec Ao V2 VTI: 28.5 cm LV V1 VTI: 21.8 cm AV (velocity ratio): 0.77 SAADIA(I,D): 2.4 cm2 SAADIA(V,D): 2.3 cm2 SV(LVOT): 67.5 ml PA V2 max: 102.4 cm/sec PA max PG (full): 0.53 mmHg ECHO/Echo Complete W/ Contrast Interpretation Summary Normal LV size. Left ventricular systolic function is normal. The left ventricular ejection fraction is 60 %. Stage 1 diastolic dysfunction. Contrast injection was performed. Ordering Physician: Wild Martinez Referring Physician: Bryce Zamarripa Performed By: Sherri Paulino RDCS
[2023-05-15 16:46] LABS: Absolute Lymphocyte Count 0.94 X10^3/uL (0.83-4.51); Absolute Neutrophil Count 3.4 X10^3/uL (2.0-7.7); Basophil# 0.03 X10^3/uL; Basophil% 0.5 % (0-1); Eosinophil# 0.19 X10^3/uL; Eosinophils% 3.4 % (0-5); Hematocrit 30.1 % (40-54); Hemoglobin 9.4 g/dL (13.0-16.5); Lymphocyte # 0.94 X10^3/ul (0.83-4.51); Lymphocyte % 16.9 % (19-41); Mean Corp Hgb Conc 31.2 g/dL (32-36); Mean Corpuscular Volume 92.9 fL (80-94); Mean Platelet Vol. 9.7 fl (6.2-12.0); Monocyte# 0.98 X10^3/uL; Monocyte% 17.6 % (0-10); NRBC Flagged by Analyzer 0 % (0-5); Neutrophil # 3.41 X10^3/uL (2.7-7.7); Neutrophil % 61.2 % (47-70); Platelet Count 296 K/mm3 (150-450); RBC Distribution Width CV 16.1 % (11.6-14.6); RBC Distribution Width SD 54.8 fl (35.1-43.9); Red Blood Count 3.24 M/mm3 (4.6-6.2); White Blood Count 5.6 K/mm3 (4.4-11.0)
[2023-05-15 16:56] LABS: Bedside Glucose 124 mg/dL (74-106)
[2023-05-15 17:19] LABS: Anion Gap 4 (5-15); BUN 11 mg/dL (7-18); BUN/Creat Ratio 9.2 RATIO (10-20); Calcium,Total 9.4 mg/dL (8.5-10.1); Chloride 108 mmol/L (98-107); Creatinine, Serum 1.19 mg/dL (0.70-1.30); EST Glomerular Filtration Rate 64 mL/min (>60); Est Glom Filt Rate - Afr Amer 78 mL/min (>60); Glucose 121 mg/dL (74-106); Potassium 3.7 mmol/L (3.5-5.1); Sodium Level 138 mmol/L (136-145)
[2023-05-15 17:42] LABS: AST(SGOT) 33 U/L (15-37); Alanine Aminotransfer ALT/SGPT 13 U/L (16-61); Albumin, Serum 2.3 g/dL (3.2-5.0); Alkaline Phosphatase 165 U/L (45-117); Bilirubin, Direct 0.16 mg/dL (0.00-0.30); Globulin 4.5 g/dL (2.2-4.2); Magnesium 2.1 mg/dL (1.6-2.6); Protein, Total 6.8 g/dL (6.4-8.2); Troponin-I HS 44 pg/mL (3.0-78.0)
[2023-05-15 19:28] LABS: CPK Total, Creatine Kinase 20 U/L (39-308); Phosphorus 1.8 mg/dL (2.5-4.9); Troponin-I HS 41 pg/mL (3.0-78.0)
[2023-05-15 23:25] LABS: Troponin-I HS 36 pg/mL (3.0-78.0)
[2023-05-15] MEDS: Ensure Plus High Protein 120 ML LIQUID PO (23:50)
[2023-05-15] MEDS: Atorvastatin Calcium 80 MG Tablet PO (23:51)
[2023-05-15] MEDS: Mirtazapine 15 MG Tablet PO (23:52)
[2023-05-16] MEDS: Cefepime HCl 2 GM in 0.9% Normal Saline (100mL MB+) 100 ML IV ×2 (00:20→06:10)
[2023-05-16 01:10] VITALS: RESP 16
[2023-05-16 01:34] VITALS: BMI 39.6
[2023-05-16 06:00] VITALS: BP 147/76; PULSE 72; RESP 18; TEMP 36.3; O2SAT 100
[2023-05-16] MEDS: 0.9% Saline Lock 10 ML Syringe IV (06:10)
[2023-05-16] MEDS: Heparin Injection (Vial) 5,000 UNIT/ML VIAL 5000 UNIT SC (06:11)
[2023-05-16 07:32] VITALS: RESP 18; O2SAT 96
--- NOTE | 2023-05-16 08:49 | CASEMGMT ---
[facility]charge [facility]. Jayne Henry, Discharge Planning Asst.
[2023-05-16 09:50] VITALS: PULSE 74
[2023-05-16] MEDS: Folic Acid 1 MG Tablet PO (09:50)
[2023-05-16] MEDS: Metoprolol(XL)Succ 50 MG Tablet PO (09:50)
[2023-05-16] MEDS: Senna/Docusate Sodium 1 Tablet 2 TABLET PO (09:51)
[2023-05-16] MEDS: Ranolazine 500 MG Tablet PO (09:51)
[2023-05-16] MEDS: Citalopram 20 MG Tablet PO (09:51)
[2023-05-16] MEDS: Isosorbide Mononitrate 60 MG Tablet PO (09:51)
[2023-05-16] MEDS: Clopidogrel Bisulfate 75 MG Tablet PO (09:51)
[2023-05-16] MEDS: Miconazole Nitrate 43 GM Bottle 1 APPLIC TOPICAL (09:52)
[2023-05-16] MEDS: Zinc Oxide 30gm Tube 1 APPLIC TOPICAL (09:52)
[2023-05-16] MEDS: Tamsulosin HCl 0.4 MG Capsule PO (09:52)
[2023-05-16] MEDS: Hydroxychloroquine 200 MG Tablet PO (09:52)
[2023-05-16] MEDS: Polyethylene Glycol 3350 17 GM PACKET PO (09:53)
[2023-05-16] MEDS: Ensure Plus High Protein 120 ML LIQUID PO (09:58)
--- NOTE | 2023-05-16 10:00 | DS.PCM_ITS ---
Providers Date of Admission: 05/09/23 Primary Care Physician: Dr. Bryce Zamarripa MD Consultations 05/09/23 18:59 Consult: Substitute Teacher / Pulmonary Medicine Routine Consulting Provider: Intensivists/Pulmonary Med Reason for Consult: sepsis EMERGENT Consult: No Notified: Yes Date Notified: 05/09/23 Time Notified: 18:07 Method of Notification: Verbal 05/11/23 07:33 Consult: Infectious Disease Routine Consulting Provider: Merritt Soares Reason for Consult: Pseudomonas resisitant to zosyn EMERGENT Consult: No Notified: Yes Date Notified: 05/11/23 Time Notified: 07:34 Method of Notification: Text 05/11/23 22:49 Consult: General Surgery Routine Consulting Provider: Jennifer Nguyễn Reason for Consult: Acute cholecystitis EMERGENT Consult: No Notified: Yes Date Notified: 05/11/23 Time Notified: 22:50 Method of Notification: Text 05/12/23 18:42 Consult: Gastroenterology Routine Consulting Provider: [facility] Reason for Consult: Dysphagia, need EGD, Dyspepctic symtoms EMERGENT Consult: No Notified: Yes Date Notified: 05/12/23 Time Notified: 18:42 Method of Notification: Verbal Reason For Visit: SEPSIS 2/2 TO UTI Diagnosis Discharge Diagnosis (1) Discitis of lumbar region: Status: Acute Code(s): M46.46 - Discitis, unspecified, lumbar region (2) Intractable low back pain: Status: Acute Code(s): M54.59 - Other low back pain Plan 72-year-old gentleman was admitted with chest discomfort around noon time from [facility] but it was felt that he has a chronic chest discomfort and is on Ranexa on home medication. He also had recent hospitalization in April for intractable back pain from epidural abscess from where he was discharged to SNF with Adams catheter. Adams catheter was removed yesterday. Patient is stated that he could not get warmth and was found hypotensive in the ED and clinical diagnosis of sepsis was made 1. Sepsis secondary to suspected urinary tract infection: Patient is admitted to ICU. -Patient has leukocytosis, lactic acidosis, TEODORO, hypotension--> meets criteria per SEP 1. Lactic acidosis 3.7. Repeat 1 normal. -Fluid boluses given at 30 cc/kg body weight due to hypotension--> total of 4 L -Patient did not require pressors. Fluid responsive hypotension. -Blood and urine cultures were obtained the emergency department -Continue cefepime and vancomycin due to frequent hospitalizations and instrumentation -ID has been consulted 05/10: Blood culture x 2 negative for 48 hours. Urine culture shows Pseudomonas aeruginosa more than thousand colonies, resistant to piperacillin/tazobactam. Patient on IV cefepime ID consult requested. Discontinue vancomycin. Patient recommended 4 more days of ciprofloxacin. Patient did not move bowel since 05/04. Patient large body therefore x-ray wound be appropriate therefore CT abdomen/pelvis with oral contrast only ordered. Patient given Dulcolax 10 mg oral 1 dose. MiraLAX ordered. Patient already on senna S. Will cancel the discharge today. 05/11: Patient afebrile. CT abdomen shows multiple gallbladder stones and features of acute gastritis with GB wall thickening and stranding of surrounding fat similar. Liver normal. RUQ sonogram shows normal distended gallbladder with GB wall 5 mm. No pericholecystic fluid or Peter sign. Multiple GB stones. Patient does not have abdominal pain. Surgery is consulted. Liver chemistry shows chronically elevated alkaline phosphatase although improving. ALT AST normal although ALT is low. TB normal. Repeat liver chemistry today 05/12: HIDA scan shows no gallbladder activity. Radiotracer not found in gallbladder up to 120 minutes and therefore probably cystic duct obstruction. Discussed with the surgeon. Patient does not have abdominal pain. Patient has difficulty in swallowing and was on soft bite sized food but is still feels food stuck in the midesophagus therefore GI consulted for esophageal dysphagia and possible EGD. He states he feels dysphagia after the of April surgery. Denies prior EGD or history of dysphagia or dilatation. Patient also had cardiac stent in March therefore could not come out of Plavix. In view of multiple comorbidities and risk of complication including thromboembolism and cardiac complications and patient not having abdominal pain, observation with wait and watch recommended. Discussed with the surgery and the patient in detail. 05/13: No acute change. Discussed with the imaging findings of CT scan, ultrasound and HIDA scan to patient's in the room. Patient does not have a bdominal pain. Plan for EGD for assessment of esophageal dysphagia. Patient has problem with swallowing pills feels like it stuck in the chest. 05/14: EGD was done on 05/14/2023 as mentioned below. Liquid diet yesterday. Advance to soft diet. Patient is stated his swallowing has improved after di latation. 05/14 during rapid response: Vitals were taken glucose 124, heart rate 62/min, BP 137/66, respiratory rate 14/min, pulse ox 100% on 2 L of oxygen. Patient complain of mild chest pressure lethargic, short of breath and diaphoretic. Rapid response was called. Twelve-lead EKG was done, heart rate 62/min, short OR interval, old inferior infarct, QTc 483 ms. Serial troponins were ordered. CBC, BMP, liver chemistry, magnesium, phosphorus, CPK and ABG ordered. Chest x-ray portable ordered. last echo in May 2022 shows EF 60%, mild TR PASP 39 mmHg. 2D echo ordered. 05/15: Patient did not had any further chest pain. Overall night he was comfortable. Troponins were negative. Chest x-ray does not show evidence of acute cardiopulmonary disease. 2D echo was done and paper final inspector looked at it. No regional wall motion abnormality. EF normal 65%. Patient is discharged to SNF. No change in the discharge meds. Impressions : - Moderate Schatzki ring. Dilated. - Z-line irregular, 41 cm from the incisors. Biopsied. - Small hiatal hernia. - No gross lesions in the first portion of the duodenum. Recommendations : Liquid diet - Use Protonix (pantoprazole) 40 mg PO BID for 12 weeks. - Chest pain atypical noncardiac -Patient does have a history of coronary disease -Initial troponin was unremarkable at 27 with repeat pending -EKG shows chronic atrial fibrillation without any ST-T wave changes concerning for acute ischemia -Patient is on Ranexa at home so we will continue 05/10: With 3 serial troponins negative, ACS ruled out. TEODORO -Suspect related to decreased perfusion from hypotension however patient did just have Adams removed -Bladder scan as needed -IV fluids as noted above -Keep maps greater than 65 05/10: BUNs/creatinine 02/02.13. 05/12: Patient has hypokalemia. Serum magnesium phosphorus normal. IV potassium replacement ordered. 05/13 K3.6. 05/23 potassium 3.6. Hypotension -Secondary to the above -Baseline appears to run in the 140s to 150s systolic -89 on presentation -Fluid boluses as above 05/10: Patient blood pressure is on the higher side. Resume metoprolol and isosorbide mononitrate. 05/14: Hypotension resolved. Recent epidural abscess/osteomyelitis of lumbar spine -Patient has completed oral antibiotics however it does appear he is still on amoxicillin despite him telling me his completed antibiotics -Continue home amoxicillin--> cefepime should cover but I do not want to get this lost if cefepime discontinued depending on culture results -Not currently having any back pain -Monitor clinically with low threshold for imaging if back pain develops 05/13: Need ID follow-up. LILI -Continue home CPAP CAD/HTN/HPL - reports he had a stent in February -Continue Plavix and Coumadin -Continue high-dose atorvastatin -Hold antihypertensives due to hypotension on presentation -Continue home Ranexa GERD with history of GI bleed -Continue twice daily PPI -Continue Carafate 05/12: Hemoglobin low severe anemia 7.9 slowly decreased from 8.4. Platelet count normal. Continue twice daily PPI changed from oral to IV. Reticulocyte panel shows increased immature reticulocyte fraction suggestive of reactive bone marrow. Iron study shows low iron, low TIBC saturation normal and ferritin high suggestive of anemia of chronic disease. Chronic atrial fibrillation -Patient is in rate controlled A-fib at this time -Hold metoprolol for now due to hypotension but low threshold to reinitiate if blood pressure stabilizes to avoid tachycardia -Warfarin dose increased to 5 mg daily. Patient not get warfarin yesterday th erefore give 1 now follow INR 05/10: Today INR is 1.9. Continue warfarin 5 mg daily. 05/12 INR is 2.5 therefore hold warfarin. BPH with obstruction -Patient had urinary retention postoperatively and had Adams removed after about 4 weeks today at [facility]. -Follow for urine output -Continue home Flomax -Bladder scan as needed Patient is very incontinent Polyarthritis -Continue home hydroxychloroquine Depression -Continue home citalopram Debility -PT/OT consultation -Patient will need to be discharged back to skilled facility once medically stabilized Morbid obesity -BMI is 42.1 -Recommend weight loss -Complicates treatment, prognosis, outcomes DVT prophylaxis -INR is subtherapeutic at 1.7 -Will give subcu heparin 3 times daily until INR is therapeutic 05/10: INR increased to 1.9. Warfarin was increased to 5 mg on 05/10. CODE STATUS Full code Discharge to SNF Discharge medication reconciliation done. Discharge follow-up instructions completed. Discharge process discussed with the patient and all questions were answered to patient's satisfaction. Follow with PCP in 1 to 2 weeks Total time spent, exact 35 minutes on discharge meds reconciliation, examination, coordination of care with nurses and ancillary staff, review of imaging and blood test and discussion with the patient on follow-up instructions. Medications at Discharge Home Medications citalopram 20 mg tablet 20 mg PO DAILY MOOD 09/21/14 tamsulosin 0.4 mg capsule 0.4 mg PO DAILY bph 05/18/19 hydroxychloroquine 200 mg tablet 200 mg PO BID arthritis 04/25/21 Handicap Placard #1 ea 07/05/21 isosorbide mononitrate 60 mg tablet,extended release 24 hr 60 mg PO BID heart 02/17/23 nitroglycerin 0.4 mg sublingual tablet 0.4 mg sublingual Q5M PRN chest pain 02/17/23 clopidogrel 75 mg tablet 75 mg PO DAILY blood thinner 04/11/23 folic acid 1 mg tablet 1 mg PO DAILY vitamin 04/11/23 losartan 50 mg tablet 50 mg PO DAILY bp 04/11/23 ondansetron HCl 4 mg tablet 4 mg PO Q4H PRN nausea 04/11/23 sucralfate 1 gram tablet 1 g PO 4X/DAY stomach 04/11/23 acetaminophen 500 mg tablet 1,000 mg PO BID pain 05/09/23 aluminum-mag hydroxide-simethicone 200 mg-200 mg-20 mg/5 mL oral susp (Advanced Antacid-Antigas) 30 ml PO DAILY PRN GERD 05/09/23 amoxicillin 875 mg tablet 875 mg PO Q12H OSTEOMYELITIS 05/09/23 atorvastatin 80 mg tablet 80 mg PO QHS CHOLESTEROL 05/09/23 food supplemt, lactose-reduced 0.06 gram-1 kcal/mL oral liquid (Boost High Protein) 120 ml PO BIDCM 05/09/23 melatonin 3 mg tablet 3 mg PO QHS PRN sleep 05/09/23 metoprolol succinate 50 mg tablet,extended release 24 hr 50 mg PO BID BLOOD PRESSURE 05/09/23 mirtazapine 15 mg tablet 15 mg PO QHS mental health 05/09/23 naloxone 4 mg/actuation nasal spray 4 mg intranasal Q3M PRN opioid overdose 05/09/23 nystatin 100,000 unit/gram topical powder 1 applic topical BID SKIN IRRITATION 05/09/23 potassium chloride 20 mEq/15 mL oral liquid 20 meq PO DAILY 05/09/23 ranolazine 500 mg tablet,extended release,12 hr 500 mg PO BID HEART DISEASE 05/09/23 scopolamine base 1 mg over 3 days transdermal patch 1 patch transdermal Q3D PRN nausea and vomiting 05/09/23 sennosides 8.6 mg-docusate sodium 50 mg tablet (Senna with Docusate Sodium) 1 tab-cap PO BID constipation 05/09/23 zinc oxide 20 % topical ointment 1 applic topical BID skin 05/09/23 bisacodyl 10 mg rectal suppository (Dulcolax (bisacodyl)) 10 mg OR DAILY PRN constipation #30 ea 05/11/23 ciprofloxacin HCl 500 mg tablet (Cipro) 500 mg PO BID 4 days #8 tabs 05/11/23 cyclobenzaprine 10 mg tablet 10 mg PO Q8H PRN pain 30 days #0 tabs 05/11/23 warfarin 5 mg tablet (Jantoven) 5 mg PO DINNER #0 tabs 05/11/23 oxycodone 5 mg tablet 5 - 10 mg (1 - 2 x 5 mg) PO Q6H 3 days #10 tabs 05/15/23 pantoprazole 40 mg tablet,delayed release 40 mg PO Q12H stomach 1 month #60 tabs 05/15/23 polyethylene glycol 3350 17 gram oral powder packet 17 g PO DAILY #0 ea 05/15/23 Physical Exam Narrative Seen and examined. No chest pain overnight. Patient on baseline. No increased shortness of breath. He can lift both his legs. Physical exam General: Alert, Oriented x3, Cooperative. Generalized fatigue HEENT: Atraumatic, PERRLA, EOMI, Normocephalic Oral: Oral mucosa moist. No Gingival or Mucosal Lesions/ Ulcerations Neck: Supple, No JVD, Negative Carotid Bruits Chest wall/Lungs: Air entry diminished in bilateral lung bases. No crepitation/rhonchi Cardiovascular: A-fib, irregular rhythm, Normal S1, Normal S2, No M/G/R Abdomen: Bowel Sounds Present, Soft, Non Tender, Non-Distended. No Peter sign or GB palpable : No dysuria. No renal angle tenderness. No suprapubic tenderness. Extremities: No edema, Capillary Refill Less than 3 Seconds Skin: No rashes, No breakdown Musculoskeletal: Weakness, chronic of lower extremities, 4+/5 at hips and knee joints. Patient can lift his legs. Right TKR. Neurological: Cranial nerves II-XII grossly intact, DTR 2+/4. No acute focal neurological deficit. Psych/Mental Status: Flat affect. Medical Records Data Medical Nutrition Assessment Dietitian: Malnutrition Criteria Met Start: 05/10/23 10:04 Freq: Status: Active Protocol: Document 05/14/23 11:58 [facility] (Rec: 05/14/23 11:58 [facility] [id number]) Nutrition Malnutrition Evidence of Malnutrition Exists Yes Malnutrition (severe): Acute Illness/Injury Evidenced By Suboptimal Energy Intake ( Severe),Weight Loss (Severe) Clinical Problem Acute Disease or Injury Related Malnutrition Etiology severe, acute malnutrition related to inadequate energy intake w/ acute hospitalizations, nausea/ emesis, swallowing difficulty Signs/Symptoms as evidenced by unintentional wt loss 17% x 3 months, 6% wt loss x 1 month dispenser operator; estimated PO intake meeting <75% of estimated energy needs >3 months dispenser operator Status Active Problem Recommendation Dietitian Recommendations/Changes Continue liberal regular diet w/ ensure clear w/ medpass; MAINTENANCE MECHANIC 2ND SHIFT consult, texture/ consistency modifications per MAINTENANCE MECHANIC 2ND SHIFT as needed. Weight / BMI Weight Weight: 268 lb 11.896 oz Body Mass Index (BMI) 39.6 ABG / Lab / Microbiology Data 05/15/23 16:30 05/15/23 16:30 Laboratory: Laboratory Results - last 24 hr 05/15/23 16:05: POC Glucose 124 H 05/15/23 16:30: WBC 5.6, RBC 3.24 L, Hgb 9.4 L, Hct 30.1 L, MCV 92.9, MCH 29.0, MCHC 31.2 L, RDW Std Deviation 54.8 H, RDW Coeff of Abdiel 16.1 H, Plt Count 296, MPV 9.7, Immature Gran % (Auto) 0.400, Neut % (Auto) 61.2, Lymph % (Auto) 16.9 L , [place] % (Auto) 17.6 H, Eos % (Auto) 3.4, Baso % (Auto) 0.5, Absolute Neuts (auto) 3.4, Absolute Lymphs (auto) 0.94, Nucleated RBC % 0, Sodium 138, Potassium 3.7, Chloride 108 H, Carbon Dioxide 26.0, Anion Gap 4 L, BUN 11, Creatinine 1.19, Estim Creat Clear Calc 74.10, Est GFR (MDRD) Af Amer 78, Est GFR (MDRD) Non-Af 64, BUN/Creatinine Ratio 9.2 L, Glucose 121 H, Calcium 9.4, Magnesium 2.1, Total Bilirubin 0.40, Direct Bilirubin 0.16, AST 33, ALT 13 L, Alkaline Phosphatase 165 H, Troponin I High Sens 44, Total Protein 6.8, Albumin 2.3 L, Globulin 4.5 H 05/15/23 18:45: Phosphorus 1.8 L, Total Creatine Kinase 20 L, Troponin I High Sens 41 05/15/23 22:40: Troponin I High Sens 36 Microbiology: Microbiology 05/15/23 14:27 Nasal Secretion SARS-CoV-2 Antigen (Rapid) - Final 05/09/23 15:29 Blood Culture (Wb) - Right Hand Blood Culture - Final No growth in 5 days. 05/09/23 15:45 Blood Culture (Wb) - Anticubital Right Blood Culture - Final No growth in 5 days. 05/09/23 16:54 Urine Catheter - Catheter Urine Culture - Final Pseudomonas aeruginosa 05/09/23 15:45 Mucosa - Nose SARS-CoV-2, Influenza & RSV (PCR) - Final ABG: ABG 05/15/23 16:24 Specimen Type ART Sample Site L Radial pH 7.42 Bicarbonate Actual 22.3 Total CO2 23 Base Excess -2 O2 Saturation 99 O2 % 2.0 ABG pCO2 34.5 L ABG pO2 120 H Yoandy Test Positive O2 Delivery Device Cannula Vent Mode Not entered Radiography Diagnostic Testing: Radiology Impression Chest X-Ray 05/15/23 16:19 IMPRESSION: No radiographic evidence of acute cardiopulmonary disease. Electronically Signed: Scott Rod DO at 16:35 EDT Reading Location ID and State: [facility] / [place] Tel [phone], Service support , Meaningful Use Info Meaningful Use Diagnoses (Choose all that apply): None applicable Discharge Plan Admission Admit Date/Time: 05/09/23 18:05 Primary Reason for Your Visit: Pseudomonas UTI related sepsis Attending Provider: Wild Martinez Primary Care Provider: Bryce Zamarripa Consulting Providers: Noa Leyva; Merritt Soares; Jennifer Nguyễn Instructions Additional Instructions / Restrictions: Start warfarin from 05/17/23. Discharge Orders/Prescriptions Prescriptions: New warfarin [Jantoven] 5 mg Tablet 5 mg PO DINNER Qty: 0 0RF Rx Instructions: Keep INR between 2-3 about 2.5. ciprofloxacin HCl [Cipro] 500 mg tablet 500 mg PO BID 4 Days Qty: 8 0RF bisacodyl [Dulcolax (bisacodyl)] 10 mg suppository 10 mg OR DAILY PRN (Reason: constipation) Qty: 30 0RF polyethylene glycol 3350 17 gram Powder In Packet 17 g PO DAILY Qty: 0 0RF Continued hydroxychloroquine 200 mg tablet 200 mg PO BID (DME) Handicap Placard See Rx Instructions .Route .MEDSUPPLY Qty: 1 0RF Rx Instructions: Good from 07/05/2021-07/05/2026; citalopram 20 MG tablet 20 mg PO DAILY tamsulosin 0.4 MG capsule 0.4 mg PO DAILY isosorbide mononitrate 60 mg tablet extended release 24 hr 60 mg PO BID nitroglycerin 0.4 mg tablet, sublingual 0.4 mg sublingual Q5M PRN (Reason: chest pain) clopidogrel 75 mg tablet 75 mg PO DAILY folic acid 1 mg tablet 1 mg PO DAILY losartan 50 mg tablet 50 mg PO DAILY Hold Instructions: Hold for 4 days. Hold for SBP less than 130 mmHg ondansetron HCl 4 mg tablet 4 mg PO Q4H PRN sucralfate 1 gram tablet 1 g PO 4X/DAY potassium chloride 20 mEq/15 mL liquid 20 meq PO DAILY scopolamine base 1 mg over 3 days patch 3 day 1 patch transdermal Q3D PRN (Reason: nausea and vomiting) alum-mag hydroxide-simeth [Advanced Antacid-Antigas] 200-200-20 mg/5 mL suspension 30 ml PO DAILY PRN (Reason: GERD) melatonin 3 mg tablet 3 mg PO QHS PRN (Reason: sleep) metoprolol succinate 50 mg tablet extended release 24 hr 50 mg PO BID atorvastatin 80 mg tablet 80 mg PO QHS mirtazapine 15 mg tablet 15 mg PO QHS naloxone 4 mg/actuation spray,non-aerosol 4 mg intranasal Q3M PRN (Reason: opioid overdose) Rx Instructions: spray 1 dose into ONE nostril; alternate nostrils w each dose until help arrives nystatin 100,000 unit/gram powder 1 applic topical BID Rx Instructions: APPLY TO AFFECTED AREAS TWICE DAILY ranolazine 500 mg tablet extended release 12 hr 500 mg PO BID sennosides-docusate sodium [Senna with Docusate Sodium] 8.6-50 mg tablet 1 tab-cap PO BID zinc oxide 20 % ointment 1 applic topical BID acetaminophen 500 mg tablet 1,000 mg PO BID amoxicillin 875 mg tablet 875 mg PO Q12H Boost High Protein 0.06 gram- 1 kcal/mL liquid 120 ml PO BIDCM pantoprazole 40 mg tablet,delayed release (DR/EC) 40 mg PO Q12H 30 Days Qty: 60 2RF Rx Instructions: for 12 weeks Changed cyclobenzaprine 10 mg tablet 10 mg PO Q8H PRN (Reason: pain) 30 Days Qty: 0 0RF oxycodone 5 mg Tablet 5 - 10 mg PO Q6H 3 Days Qty: 10 0RF Discontinued warfarin 4 mg tablet 4 mg PO QHS Protocol: Dose Management Condition: Sunday Dose/Route: 4 mg Instruction: 1 x 4 mg tablet Condition: Sunday Dose/Route: 8 mg Instruction: 2 x 4 mg tablets Condition: Sunday Dose/Route: 8 mg Instruction: 2 x 4 mg tablets Condition: Sunday Dose/Route: 8 mg Instruction: 2 x 4 mg tablets Condition: Dose/Route: 8 mg Instruction: 2 x 4 mg tablets Condition: Sunday Dose/Route: 8 mg Instruction: 2 x 4 mg tablets Condition: Sunday Dose/Route: 4 mg Instruction: 1 x 4 mg tablet Protocol Text: Adjustment Start Date: Sunday02/12/23 INR Value: 1.6 INR Date: 02/12/23 Recheck Date: 02/19/23 Referrals / Follow Up: Bryce Zamarripa MD [Primary Care Provider] - Hal Phipps DO [Med Staff - Active Staff] - Within 1 Month Cornell Gunter MD [Med Staff - Active Staff] - Merritt Soares MD [Med Staff - Active Staff] - Within 1 Month Jennifer Nguyễn MD [Med Staff - Active Staff] - Within 1 Month Disposition Disposition (needs filled in before D/C Order can be placed): [facility] Charges/Coding Visit Charges Inpatient E&M: 25455 Disch Hosp >30min
--- NOTE | 2023-05-16 10:10 | CASEMGMT ---
SW is ready for discharge today. Plan: d/c back to [facility] under skilled level of care. Physicians will transport patient. Nadeen REAGAN
--- NOTE | 2023-05-16 10:35 | CASEMGMT ---
Discharge Planning Physicians will transport patient by cot at 11:30. Nursing, SW, patient, and his updated. Jayne Henry, Discharge Planning Asst.
== END 2023-05-16 11:51 | DRG 698 ==
LOC: ED 18:07 → ICU 18:23 → PCU 05-14 18:30
PROVIDERS: Internal Medicine Gastroenterology; Admitting Provider Internal Medicine; Emergency Provider Emergency Medicine; PCP Internal Medicine; Visit Provider Internal Medicine
PROC: 0DJ08ZZ Inspection of Upper Intestinal Tract, Via Natural or Artificial Opening Endoscopic (ICD-10-PCS; CPT 43235; principal; 2023-05-14 13:40)
DX: T83.511A Infection and inflammatory reaction due to indwelling urethral catheter, initial encounter (principal); G06.1 Intraspinal abscess and granuloma; A41.52 Sepsis due to Pseudomonas; E43 Unspecified severe protein-calorie malnutrition; K80.00 Calculus of gallbladder with acute cholecystitis without obstruction; N17.9 Acute kidney failure, unspecified; Z68.41 Body mass index [BMI] 40.0-44.9, adult; M46.26 Osteomyelitis of vertebra, lumbar region; E87.20 Acidosis, unspecified; N13.8 Other obstructive and reflux uropathy; Z16.29 Resistance to other single specified antibiotic; N18.30 Chronic kidney disease, stage 3 unspecified; I48.0 Paroxysmal atrial fibrillation; E66.01 Morbid (severe) obesity due to excess calories; I12.9 Hypertensive chronic kidney disease with stage 1 through stage 4 chronic kidney disease, or unspecified chronic kidney disease; F32.A Depression, unspecified; D50.9 Iron deficiency anemia, unspecified; K22.2 Esophageal obstruction; G47.33 Obstructive sleep apnea (adult) (pediatric); E78.00 Pure hypercholesterolemia, unspecified; I25.10 Atherosclerotic heart disease of native coronary artery without angina pectoris; K21.9 Gastro-esophageal reflux disease without esophagitis; M13.0 Polyarthritis, unspecified; E87.6 Hypokalemia; K29.00 Acute gastritis without bleeding; K44.9 Diaphragmatic hernia without obstruction or gangrene; I95.9 Hypotension, unspecified; Z79.02 Long term (current) use of antithrombotics/antiplatelets; Z79.01 Long term (current) use of anticoagulants; Z87.891 Personal history of nicotine dependence; R53.81 Other malaise; R13.10 Dysphagia, unspecified; B96.5 Pseudomonas (aeruginosa) (mallei) (pseudomallei) as the cause of diseases classified elsewhere; B96.20 Unspecified Escherichia coli [E. coli] as the cause of diseases classified elsewhere; N40.1 Benign prostatic hyperplasia with lower urinary tract symptoms; R32 Unspecified urinary incontinence; R07.89 Other chest pain; Z79.899 Other long term (current) drug therapy; R79.1 Abnormal coagulation profile; N39.0 Urinary tract infection, site not specified; Y73.1 Therapeutic (nonsurgical) and rehabilitative gastroenterology and urology devices associated with adverse incidents
CPT/HCPCS: 36415; 36569; 36600; 71045; 74176; 76705; 78226; 80048; 80053; 80076; 81001; 82550; 82607; 82728; 82803; 82962; 83540; 83550; 83605; 83735; 84100; 84484; 85025; 85045; 85610; 85730; 87040; 87077; 87086; 87088; 87184; 87186; 87631; 87641; 87811; 88305; 88313; 88341; 88342; 92526; 92610; 93005; 93306; 94003; 94660; 94668; 97162; 97166; 97530; 97535; 97802; 99285; A9537; J2997; J7030; J7040; J7050; P9612; Q9957; A4216; C1769; C8929; J2405; J2916; J3490

== ENCOUNTER 2023-06-18 05:30 | Day surgery (SDC) | payer MEDICARE, OTHER, SELFPAY ==
--- NOTE | 2023-06-18 | ESO_PTH ---
PATIENT: GUSTAVO HARTMAN LOC: EN U#:[id number] AGE/SX: 72/M ROOM: RE06/18/[address]: Dr. Gil Hurst DO : 1950 BED: DIS: 06/18/2023 SPEC #: [id number] RECD: 06/18/23 14:05 STATUS: SEBASTIÁN JESSICA #: [id number] JESSE: 06/18/23 00:[address]: Gil Hurst DEPT: SURGICAL PATHOLOGY RECD BY: Mars Taylor ENTERED: 06/18/23 14:05 SP TYPE: MERISSA COLEMAN DR: Dr. Bryce Zamarripa MD Tissues: Esophagus, NOS Procedures: Special Stain Group II Surgery Specimen Level IV Alcian Blue/PAS (control) HEADER OPERATION: EGD with biopsy PRE-OP DIAGNOSIS: Ulcer surveillance TISSUE SUBMITTED: Distal esophagus biopsy MICROSCOPIC DIAGNOSIS Distal esophagus, biopsy: Gastroesophageal junctional mucosa with mild chronic inflammation. No evidence of goblet cell metaplasia. See comment. / 06/19/23 COMMENT Alcian blue/PAS stain with matched control supports the above diagnosis. MICROSCOPIC DESCRIPTION Slides are reviewed. GROSS DESCRIPTION Received in fixative is one container labeled with the patient's name and designated Distal esophagus biopsy. The specimen consists of multiple irregular fragments of light florentino soft tissue that in aggregate measure 0.8 x 0.5 x 0.1 cm. The specimen is totally submitted in one cassette. / 06/18/23 TC:3 CPT:07008 ,48054
[2023-06-18 05:57] VITALS: BP 110/45; PULSE 60; RESP 16; TEMP 36.7; O2SAT 96; BMI 37.3
[2023-06-18] MEDS: Lactated Ringers 1,000 ML 15 ML IV (06:08)
--- NOTE | 2023-06-18 06:24 | PCM.HP.BLA ---
History and Physical Date of Admission: 06/18/23 Reason for Consultation: Dysphagia HPI Narrative: GUSTAVO HARTMAN, is a 72 M who presented to the emergency department on May 08 from his [facility] facility with chest discomfort. The patient has a history of chronic chest discomfort and is on Ranexa as an outpatient. He had a recent hospitalization at the beginning of April for intractable back pain with an epidural abscess. Following his hospitalization he was sent to the [facility] facility with a Adams catheter in place. His Adams was apparently removed yesterday. The patient does report a history of sleep apnea, for which he has been compliant with use of nocturnal CPAP therapy. He currently denies any specific complaints. On presentation to the emergency department, the patient was documented to be afebrile with a presenting blood pressure of 89/55 mmHg. Laboratory evaluation revealed a white blood cell count of 14,000. Chemistry profile was notable for a creatinine of 1.9 with a lactate of 3.7. Urine analysis was positive for leukocyte esterase and 2+ urine bacteria. Chest x-ray demonstrated no acute cardiopulmonary process. Blood and urine cultures were obtained. The patient received supplemental IV fluid hydration and was initiated on antimicrobials. He was subsequently admitted to the medical intensive care unit for further management. He also had recent admition for T11-L1 ecoli osteo/discitis with phlegmon. He was admitted here and to [facility], completed course with IV ceftriaxone, then put on po amox for suppression. Admitted 05/08 from facility with several days n/v, fever, confusion, vision changes. Admitted here on cefepime, rapidly improved. I was asked to see him due to esophageal dysphagia. He also has esophageal dysphagia with solids and sometimes liquids. He denies any chest pain or shortness of breath. He does have history of possible rheumatoid arthritis on hydrochloric when twice a day, history of paroxysmal A-fib on warfarin and history of CAD status post CABG on aspirin and Plavix. His hemoglobin has been ranging between 8 and 9. 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 Morbid obesity LILI on CPAP Paroxysmal atrial fibrillation Polyarthritis Pure hypercholesterolemia Viral syndrome Wears glasses Home Medications citalopram 20 mg tablet 20 mg PO DAILY MOOD 09/21/14 [History Last Taken 02/16/23] tamsulosin 0.4 mg capsule 0.4 mg PO DAILY bph 05/18/19 [History Last Taken 02/16/23] hydroxychloroquine 200 mg tablet 200 mg PO BID arthritis 04/25/21 [History Last Taken 02/16/23] Handicap Placard #1 ea 07/05/21 [Rx Last Taken Unknown] isosorbide mononitrate 60 mg tablet,extended release 24 hr 60 mg PO BID heart 02/17/23 [History Last Taken 02/16/23] nitroglycerin 0.4 mg sublingual tablet 0.4 mg sublingual Q5M PRN chest pain 02/17/23 [History Last Taken Unknown] clopidogrel 75 mg tablet 75 mg PO DAILY blood thinner 04/11/23 [History Last Taken Unknown] folic acid 1 mg tablet 1 mg PO DAILY vitamin 04/11/23 [History Last Taken Unknown] losartan 50 mg tablet 50 mg PO DAILY bp 04/11/23 [History Last Taken Unknown] ondansetron HCl 4 mg tablet 4 mg PO Q4H PRN nausea 04/11/23 [History Last Taken Unknown] pantoprazole 40 mg tablet,delayed release 40 mg PO Q12H stomach 04/11/23 [History Last Taken Unknown] sucralfate 1 gram tablet 1 g PO 4X/DAY stomach 04/11/23 [History Last Taken Unknown] acetaminophen 500 mg tablet 1,000 mg PO BID 05/09/23 [History Last Taken Unknown] aluminum-mag hydroxide-simethicone 200 mg-200 mg-20 mg/5 mL oral susp (Advanced Antacid-[place]) 30 ml PO DAILY PRN GERD 05/09/23 [History Last Taken Unknown] amoxicillin 875 mg tablet 875 mg PO Q12H OSTEOMYELITIS 05/09/23 [History Last Taken Unknown] atorvastatin 80 mg tablet 80 mg PO QHS CHOLESTEROL 05/09/23 [History Last Taken Unknown] food supplemt, lactose-reduced 0.06 gram-1 kcal/mL oral liquid (Boost High Protein) 120 ml PO BIDCM 05/09/23 [History Last Taken Unknown] melatonin 3 mg tablet 3 mg PO QHS PRN sleep 05/09/23 [History Last Taken Unknown] metoprolol succinate 50 mg tablet,extended release 24 hr 50 mg PO BID BLOOD PRESSURE 05/09/23 [History Last Taken Unknown] mirtazapine 15 mg tablet 15 mg PO QHS 05/09/23 [History Last Taken Unknown] naloxone 4 mg/actuation nasal spray 4 mg intranasal Q3M PRN opioid overdose 05/09/23 [History Last Taken Unknown] nystatin 100,000 unit/gram topical powder 1 applic topical BID SKIN IRRITATION 05/09/23 [History Last Taken Unknown] oxycodone 5 mg tablet 5 - 10 mg PO Q4H PRN Pain Score 4-6 05/09/23 [History Last Taken Unknown] potassium chloride 20 mEq/15 mL oral liquid 20 meq PO DAILY 05/09/23 [History Last Taken Unknown] ranolazine 500 mg tablet,extended release,12 hr 500 mg PO BID HEART DISEASE 05/09/23 [History Last Taken Unknown] scopolamine base 1 mg over 3 days transdermal patch 1 patch transdermal Q3D PRN nausea and vomiting 05/09/23 [History Last Taken Unknown] sennosides 8.6 mg-docusate sodium 50 mg tablet (Senna with Docusate Sodium) 1 tab-cap PO BID 05/09/23 [History Last Taken Unknown] zinc oxide 20 % topical ointment 1 applic topical BID 05/09/23 [History Last Taken Unknown] bisacodyl 10 mg rectal suppository (Dulcolax (bisacodyl)) 10 mg VT DAILY PRN constipation #30 ea 05/11/23 [Rx Last Taken Unknown] ciprofloxacin HCl 500 mg tablet (Cipro) 500 mg PO BID 4 days #8 tabs 05/11/23 [Rx Last Taken Unknown] cyclobenzaprine 10 mg tablet 10 mg PO Q8H PRN pain 30 days #0 tabs 05/11/23 [Rx Last Taken Unknown] polyethylene glycol 3350 17 gram/dose oral powder (Miralax) 17 g PO DAILY #238 grams 05/11/23 [Rx Last Taken Unknown] warfarin 5 mg tablet (Jantoven) 5 mg PO DINNER #0 tabs 05/11/23 [Rx Last Taken Unknown] Allergy/AdvReac Type Severity Reaction Status Date / Time bee venom protein (honey bee) Allergy Hives Verified 05/09/23 15:12 amlodipine AdvReac Severe severe Verified 05/09/23 15:12 swelling in hands and feet ceftriaxone AdvReac Nausea/Vom/ Verified 05/09/23 21:31 Diarrhea spider venom AdvReac Other Verified 05/09/23 15:12 Family History Father Heart disease Diabetes CAD (coronary artery disease) History of coronary artery bypass surgery Cardiac pacemaker in situ Pure hypercholesterolemia Surgical History H/O umbilical hernia repair History of cystoscopy History of inguinal hernia repair, bilateral History of knee surgery History of total right knee replacement Social History (Updated 05/09/23 @ 18:[address] Noa Leyva, ) housing: [facility] Smoking Status: Former smoker how long ago did patient quit smokin alcohol intake: never substance use type: does not use caffeine: Yes Type: tea Number of servings: 2 ROS Constitutional Constitutional: Denies anorexia Eyes Eyes: Denies loss of vision ENT HEENT: Reports dysphagia Cardiovascular Cardiovascular: Denies chest pain Respiratory/Chest Respiratory/Chest: Denies shortness of breath at rest Gastrointestinal Gastrointestinal: Denies abdominal pain, diarrhea, nausea or vomiting Musculoskeletal Musculoskeletal: Reports back pain Integumentary Integumentary: Denies rash Neurologic Neurologic: Denies dizziness Psychiatric Psychiatric: Denies anxiety Hematologic/Lymphatic Hematologic/Lymphatic: Reports easy bleeding Physical Exam Narrative Seen and examined. Patient does not have abdominal pain. No acute issues overnight. Patient does not have abdominal pain. Patient is moving bowel. Plan for EGD for dysphagia. CT abdomen/pelvis shows colonic fecal matter and patient had 3 bowel movements with the stool softeners and Dulcolax given. CT abdomen/pelvis and right upper quadrant sonogram shows acute cholecystitis with multiple gallstones. HIDA scan consistent with cystic duct obstruction with no radioactivity found in the gallbladder. Patient improved. Blood pressure systolic 150s. Sepsis is resolved. No fever. Physical exam General: Alert, Oriented x3, Cooperative HEENT: Atraumatic, PERRLA, EOMI, Normocephalic Oral: Oral mucosa dry. No Gingival or Mucosal Lesions/ Ulcerations Neck: Supple, No JVD, Negative Carotid Bruits Chest wall/Lungs: Air entry diminished in bilateral lung bases. No crepitation/rhonchi Cardiovascular: A-fib, irregular rhythm, Normal S1, Normal S2, No M/G/R Abdomen: Bowel Sounds Present, Soft, Non Tender, Non-Distended. No Peter sign or GB palpable : No dysuria. No renal angle tenderness. No suprapubic tenderness. Extremities: No edema, Capillary Refill Less than 3 Seconds Skin: No rashes, No breakdown Musculoskeletal: Weakness, chronic of lower extremities, 4/5 at hips and knee joints. Right TKR. Chronic mild tenderness present. Neurological: Cranial nerves II-XII grossly intact, DTR 2+/4. No acute focal neurological deficit. Psych/Mental Status: Flat affect. Medical Records Data Medical Nutrition Assessment Dietitian: Malnutrition Criteria Met Start: 05/10/23 10:04 Freq: Status: Active Protocol: Document 05/14/23 11:58 [facility] (Rec: 05/14/23 11:58 [facility] [id number]) Nutrition Malnutrition Evidence of Malnutrition Exists Yes Malnutrition (severe): Acute Illness/Injury Evidenced By Suboptimal Energy Intake ( Severe),Weight Loss (Severe) Clinical Problem Acute Disease or Injury Related Malnutrition Etiology severe, acute malnutrition related to inadequate energy intake w/ acute hospitalizations, nausea/ emesis, swallowing difficulty Signs/Symptoms as evidenced by unintentional wt loss 17% x 3 months, 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 Lab / Micro Data 05/14/23 02:45 05/14/23 02:45 Labs: Laboratory Results - last 24 hr 05/13/23 10:30: Vitamin B12 744 05/14/23 02:45: WBC 6.7, RBC 2.80 L, Hgb 8.0 L, Hct 26.0 L, MCV 92.9, MCH 28.6, MCHC 30.8 L, RDW Std Deviation 54.0 H, RDW Coeff of Abdiel 15.8 H, Plt Count 257, MPV 9.7, Immature Gran % (Auto) 0.600, Neut % (Auto) 69.9, Lymph % (Auto) 13.7 L, [place] % (Auto) 14.8 H, Eos % (Auto) 0.3, Baso % (Auto) 0.7, Absolute Neuts (auto) 4.7, Absolute Lymphs (auto) 0.92, Nucleated RBC % 0, PT 24.2 H, INR 2.2, Sodium 138, Potassium 3.6, Chloride 108 H, Carbon Dioxide 23.0, Anion Gap 7, BUN 10, Creatinine 1.08, Estim Creat Clear Calc 80.82, Est GFR (MDRD) Af Amer 87, Est GFR (MDRD) Non-Af 72, BUN/Creatinine Ratio 9.3 L, Glucose 120 H, Calcium 9.1, Total Bilirubin 0.30, Direct Bilirubin 0.16, AST 20, ALT 7 L, Alkaline Phosphatase 87, Total Protein 5.9 L, Albumin 2.0 L, Globulin 3.9 Assessment & Plan Assessment/Plan (1) Discitis of lumbar region: (2) Intractable low back pain: PLAN: Plan Patient 72-year-old gentleman admitted from an [facility] with back pain. Patient was apparently on admission from 1216 04/16/2020 MRI at that time showed T12-L1 discitis with developing epidural abscess. Interventional radiology aspiration demonstrated presence of E. coli patient was discharged on IV ceftriaxone presented back to the emergency department with worsening back pain. He was identified as having discitis and epidural abscess and is currently on treatment. He was also defined as having iron deficiency anemia on anticoagulation and antiplatelet therapy and recently has developed worsening esophageal dysphagia. Differential diagnosis does include stricture in esophagus, pill induced esophagitis, hiatal hernia, gastric antral vascular ectasia, peptic ulcer disease, H. pylori associated gastritis or peptic ulcer disease. He should undergo an upper endoscopy to evaluate his upper GI tract for esophageal dysphagia and anemia. He was explained alternatives, risk, benefits including not withstanding bleeding, infection, sepsis, perforation, need for emergent surgery and . He will have an ASA of 3. I have examined the patient and the H&P has been reviewed. There are no clinical changes since date of exam.
[2023-06-18 07:26] VITALS: BP 106/53; BP 110/49; PULSE 52; RESP 15; TEMP 36.4; O2SAT 99
--- NOTE | 2023-06-18 07:29 | OP.EGD_ITS ---
Patient Name: Arpit Montiel Procedure Date: 06/18/2023 6:20 AM Date of : 1950 Age: 72 Procedure: Upper GI endoscopy Indications: Dysphagia Providers: Gil Hurst DO Medicines: Monitored Anesthesia Care Patient Profile: This is a 72 year old male. Refer to note in patient chart for documentation of history and physical. Patient has symptoms of chronic dysphagia and dysphagia with solids. Complications: No immediate complications. Procedure: Pre-Anesthesia Assessment: - Prior to the procedure, a History and Physical was performed, and patient medications and allergies were reviewed. The patient is competent. The risks and benefits of the procedure and the sedation options and risks were discussed with the patient. All questions were answered and informed consent was obtained. Patient identification and proposed procedure were verified by the physician in the pre-procedure area. Mental Status Examination: alert and oriented. Airway Examination: normal oropharyngeal airway and neck mobility. Respiratory Examination: clear to auscultation. CV Examination: normal. Prophylactic Antibiotics: The patient does not require prophylactic antibiotics. Prior Anticoagulants: The patient has taken no anticoagulant or antiplatelet agents. ASA Grade Assessment: III - A patient with severe systemic disease. After reviewing the risks and benefits, the patient was deemed in satisfactory condition to undergo the procedure. The anesthesia plan was to use monitored anesthesia care (MAC). Immediately prior to administration of medications, the patient was re-assessed for adequacy to receive sedatives. The heart rate, respiratory rate, oxygen saturations, blood pressure, adequacy of pulmonary ventilation, and response to care were monitored throughout the procedure. The physical status of the patient was re-assessed after the procedure. After obtaining informed consent, the endoscope was passed under direct vision. Throughout the procedure, the patient's blood pressure, pulse, and oxygen saturations were monitored continuously. The Endoscope was introduced through the mouth, and advanced to the second part of duodenum. The upper GI endoscopy was accomplished without difficulty. The patient tolerated the procedure well. Scope In: 7:18:06 AM Scope Out: 7:21:16 AM Total Procedure Duration Time 0 hours 3 minutes 10 seconds Findings: A moderate Schatzki ring was found in the lower third of the esophagus. A guidewire was placed and the scope was withdrawn. Dilation was performed with a Savary dilator with no resistance at 45 Fr. The dilation site was examined and showed moderate mucosal disruption. The Z-line was irregular and was found 40 cm from the incisors. Biopsies were taken with a cold forceps for histology. Verification of patient identification for the specimen was done. Estimated blood loss was minimal. No gross lesions were noted in the stomach. No gross lesions were noted in the first portion of the duodenum. Impression: - Moderate Schatzki ring. Dilated. - Z-line irregular, 40 cm from the incisors. Biopsied. - No gross lesions in the stomach. - No gross lesions in the first portion of the duodenum. Recommendation: - Discharge patient to home. - Resume previous diet. - Continue present medications. - Await pathology results. - Use Protonix (pantoprazole) 40 mg PO BID for 5 months. Procedure Code(s): --- Professional --- 85649, Esophagogastroduodenoscopy, flexible, transoral; with insertion of guide wire followed by passage of dilator(s) through esophagus over guide wire 00889, 59,51, Esophagogastroduodenoscopy, flexible, transoral; with biopsy, single or multiple CPT copyright 2021 [employer]. All rights reserved. The codes documented in this report are preliminary and upon glass embosser review may be revised to meet current compliance requirements. Gil Hurst DO 06/18/2023 7:28:10 AM This report has been signed electronically. Number of Addenda: 0 Note Initiated On: 06/18/2023 6:20 AM
--- NOTE | 2023-06-18 07:29 | OP.CCLET_ITS ---
06/18/2023 Bryce Zamarripa MD [address] [place] [address] [place] [address] Re : Upper GI endoscopy procedure for Arpit Louisler Dear Dr. Zamarripa This procedure was performed on Sunday, June 18, 2023. My impressions and recommendations are as follows: Impressions : - Moderate Schatzki ring. Dilated. - Z-line irregular, 40 cm from the incisors. Biopsied. - No gross lesions in the stomach. - No gross lesions in the first portion of the duodenum. Recommendations : - Discharge patient to home. - Resume previous diet. - Continue present medications. - Await pathology results. - Use Protonix (pantoprazole) 40 mg PO BID for 5 months. My findings are described in the full procedure note, which is enclosed. If I can be of further assistance, please feel free to contact me at . Sincerely, Gil Hurst, 06/18/2023 7:28:10 AM This report has been signed electronically.
[2023-06-18 07:30] VITALS: BP 110/49; BP 97/46; PULSE 52; RESP 16; O2SAT 100
[2023-06-18 07:35] VITALS: BP 110/49; BP 88/50; PULSE 54; RESP 16; O2SAT 100
[2023-06-18 07:40] VITALS: BP 110/49; BP 98/51; PULSE 55; RESP 16; TEMP 36.4; O2SAT 100
[2023-06-18 07:49] VITALS: BP 110/49
== END 2023-06-18 08:11 | disposition home or self-care (01) ==
LOC: EN 05:31 → AC 05:32
PROVIDERS: PCP Internal Medicine; Referring Provider Internal Medicine; Visit Provider Internal Medicine Gastroenterology
PROC: 0DJ08ZZ Inspection of Upper Intestinal Tract, Via Natural or Artificial Opening Endoscopic (ICD-10-PCS; CPT 43235; principal; 2023-06-18 06:25)
DX: K22.2 Esophageal obstruction (principal); I48.0 Paroxysmal atrial fibrillation; N18.30 Chronic kidney disease, stage 3 unspecified; K20.90 Esophagitis, unspecified without bleeding; R13.10 Dysphagia, unspecified; I25.10 Atherosclerotic heart disease of native coronary artery without angina pectoris; R07.89 Other chest pain; I12.9 Hypertensive chronic kidney disease with stage 1 through stage 4 chronic kidney disease, or unspecified chronic kidney disease; E78.00 Pure hypercholesterolemia, unspecified; G47.33 Obstructive sleep apnea (adult) (pediatric); Z79.01 Long term (current) use of anticoagulants; Z79.02 Long term (current) use of antithrombotics/antiplatelets; Z87.891 Personal history of nicotine dependence; Z95.1 Presence of aortocoronary bypass graft; Z96.651 Presence of right artificial knee joint
CPT/HCPCS: 43248; 43239; 88305; 88313; J7120; J2405

== ENCOUNTER 2023-08-01 08:15 | Outpatient (RCR) | payer MEDICARE, OTHER, SELFPAY ==
[2023-07-19 08:57] LABS: INR Fingerstick 1.3; Prothrombin Time Fingerstick 14.1 SEC (11.7-14.9)
[2023-07-26 09:19] LABS: INR Fingerstick 1.3
[2023-08-01 09:43] LABS: Absolute Lymphocyte Count 0.72 X10^3/uL (0.83-4.51); Basophil# 0.02 X10^3/uL; Basophil% 0.3 % (0-1); Eosinophil# 0.18 X10^3/uL; Eosinophils% 3.1 % (0-5); Hemoglobin 9.4 g/dL (13.0-16.5); Lymphocyte # 0.72 X10^3/ul (0.83-4.51); Lymphocyte % 12.5 % (19-41); Mean Corp Hgb Conc 30.3 g/dL (32-36); Mean Corpuscular Hgb 27.6 pg (27.0-32.0); Mean Corpuscular Volume 91.2 fL (80-94); Mean Platelet Vol. 11.1 fl (6.2-12.0); Monocyte# 0.77 X10^3/uL; Monocyte% 13.4 % (0-10); NRBC Flagged by Analyzer 0 % (0-5); Neutrophil # 4.03 X10^3/uL (2.7-7.7); Neutrophil % 70.2 % (47-70); Platelet Count 267 K/mm3 (150-450); RBC Distribution Width CV 19.1 % (11.6-14.6); RBC Distribution Width SD 64.7 fl (35.1-43.9); White Blood Count 5.8 K/mm3 (4.4-11.0)
[2023-08-01 10:38] LABS: ALB/GLOB Ratio 0.6 RATIO (0.9-2.4); AST(SGOT) 18 U/L (15-37); Alanine Aminotransfer ALT/SGPT 10 U/L (16-61); Albumin, Serum 2.6 g/dL (3.2-5.0); Alkaline Phosphatase 84 U/L (45-117); Anion Gap 6 (5-15); BUN 15 mg/dL (7-18); BUN/Creat Ratio 12.1 RATIO (10-20); Calcium,Total 9.4 mg/dL (8.5-10.1); Chloride 108 mmol/L (98-107); Cholesterol 121 mg/dL (200); Creatinine, Serum 1.24 mg/dL (0.70-1.30); EST Glomerular Filtration Rate 61 mL/min (>60); Est Glom Filt Rate - Afr Amer 74 mL/min (>60); Glucose 95 mg/dL (74-106); High Density Lipoprotein 53 mg/dL; Potassium 3.7 mmol/L (3.5-5.1); Protein, Total 6.6 g/dL (6.4-8.2); Sodium Level 138 mmol/L (136-145); Triglycerides 61 mg/dL; Very Low Density Lipoprotein 12 mg/dL (5-40)
[2023-08-01 10:50] LABS: International Normalized Ratio 2.3; Prothrombin Time (Protime)PT. 24.8 SECONDS (11.7-14.9)
== END 2023-08-01 18:00 | disposition home or self-care (01) ==
LOC: LAB 08:15
PROVIDERS: Internal Medicine Cardiovascular Disease; PCP Family Medicine; Referring Provider Nurse Practitioner Family; Visit Provider Nurse Practitioner Family
DX: I48.0 Paroxysmal atrial fibrillation (principal); Z79.01 Long term (current) use of anticoagulants; N18.30 Chronic kidney disease, stage 3 unspecified
CPT/HCPCS: 36415; 36416; 80053; 80061; 85025; 85610

== ENCOUNTER 2023-08-29 09:10 | Outpatient (RCR) | payer MEDICARE, OTHER, SELFPAY ==
[2023-08-14 10:05] LABS: INR Fingerstick 2.7; Prothrombin Time Fingerstick 27.7 SEC (11.7-14.9)
[2023-08-29 09:22] LABS: INR Fingerstick 2.7; Prothrombin Time Fingerstick 27.2 SEC (11.7-14.9)
== END 2023-08-29 18:00 | disposition home or self-care (01) ==
LOC: LAB 09:10
PROVIDERS: PCP Family Medicine; Referring Provider Nurse Practitioner Family; Visit Provider Nurse Practitioner Family
DX: I48.0 Paroxysmal atrial fibrillation (principal); Z79.01 Long term (current) use of anticoagulants
CPT/HCPCS: 36416; 85610

== ENCOUNTER 2023-10-01 09:55 | Outpatient (RCR) | payer MEDICARE, OTHER, SELFPAY ==
[2023-10-01 10:09] LABS: INR Fingerstick 2.3; Prothrombin Time Fingerstick 23.8 SEC (11.7-14.9)
== END 2023-10-03 18:00 | disposition home or self-care (01) ==
LOC: LAB 09:55
PROVIDERS: PCP Family Medicine; Referring Provider Nurse Practitioner Family; Visit Provider Nurse Practitioner Family
DX: I48.0 Paroxysmal atrial fibrillation (principal); Z79.01 Long term (current) use of anticoagulants
CPT/HCPCS: 36416; 85610

== ENCOUNTER → 2023-10-22 | Outpatient (CLI) | payer MEDICARE, OTHER, SELFPAY ==
[2023-10-22 09:32] LABS: Absolute Lymphocyte Count 0.86 X10^3/uL (0.83-4.51); Absolute Neutrophil Count 3.2 X10^3/uL (2.0-7.7); Basophil# 0.03 X10^3/uL; Basophil% 0.6 % (0-1); Eosinophil# 0.08 X10^3/uL; Eosinophils% 1.6 % (0-5); Hematocrit 35.4 % (40-54); Lymphocyte # 0.86 X10^3/ul (0.83-4.51); Lymphocyte % 17.4 % (19-41); Mean Corp Hgb Conc 31.1 g/dL (32-36); Mean Corpuscular Hgb 29.7 pg (27.0-32.0); Mean Corpuscular Volume 95.7 fL (80-94); Mean Platelet Vol. 12.1 fl (6.2-12.0); Monocyte# 0.74 X10^3/uL; NRBC Flagged by Analyzer 0 % (0-5); Neutrophil # 3.21 X10^3/uL (2.7-7.7); Neutrophil % 65.2 % (47-70); Platelet Count 186 K/mm3 (150-450); RBC Distribution Width CV 16.4 % (11.6-14.6); RBC Distribution Width SD 58.4 fl (35.1-43.9); White Blood Count 4.9 K/mm3 (4.4-11.0)
[2023-10-22 09:57] LABS: ALB/GLOB Ratio 0.8 RATIO (0.9-2.4); AST(SGOT) 15 U/L (15-37); Alanine Aminotransfer ALT/SGPT 11 U/L (16-61); Albumin, Serum 2.8 g/dL (3.2-5.0); Alkaline Phosphatase 111 U/L (45-117); Anion Gap 5 (5-15); BUN 26 mg/dL (7-18); BUN/Creat Ratio 14.5 RATIO (10-20); Chloride 111 mmol/L (98-107); Creatinine, Serum 1.79 mg/dL (0.70-1.30); EST Glomerular Filtration Rate 40 mL/min (>60); Est Glom Filt Rate - Afr Amer 48 mL/min (>60); Globulin 3.7 g/dL (2.2-4.2); Glucose 92 mg/dL (74-106); Potassium 4.6 mmol/L (3.5-5.1); Protein, Total 6.5 g/dL (6.4-8.2); Sodium Level 141 mmol/L (136-145)
== END | disposition home or self-care (01) ==
PROVIDERS: PCP Family Medicine; Referring Provider Internal Medicine Rheumatology; Visit Provider Internal Medicine Rheumatology
DX: M06.4 Inflammatory polyarthropathy (principal); Z79.899 Other long term (current) drug therapy
CPT/HCPCS: 36415; 80053; 85025

== ENCOUNTER 2023-11-01 09:54 | Outpatient (RCR) | payer MEDICARE, OTHER, SELFPAY ==
[2023-11-01 10:04] LABS: INR Fingerstick 2.9; Prothrombin Time Fingerstick 29.4 SEC (11.7-14.9)
== END 2023-11-01 18:00 | disposition home or self-care (01) ==
LOC: LAB 09:54
PROVIDERS: PCP Family Medicine; Referring Provider Nurse Practitioner Family; Visit Provider Nurse Practitioner Family
DX: I48.0 Paroxysmal atrial fibrillation (principal); Z79.01 Long term (current) use of anticoagulants
CPT/HCPCS: 36416; 85610

== ENCOUNTER 2023-11-27 08:37 | Outpatient (RCR) | payer MEDICARE, OTHER, SELFPAY ==
[2023-11-27 08:44] LABS: INR Fingerstick 3.2; Prothrombin Time Fingerstick 31.8 SEC (11.7-14.9)
== END 2023-11-27 18:00 | disposition home or self-care (01) ==
LOC: MTLAB 08:37
PROVIDERS: PCP Family Medicine; Referring Provider Nurse Practitioner Family; Visit Provider Nurse Practitioner Family
DX: I48.0 Paroxysmal atrial fibrillation (principal); Z79.01 Long term (current) use of anticoagulants
CPT/HCPCS: 36416; 85610

== ENCOUNTER 2024-01-02 10:32 | Outpatient (RCR) | payer MEDICARE, OTHER, SELFPAY ==
[2023-12-11 09:25] LABS: INR Fingerstick 2.4; Prothrombin Time Fingerstick 25.1 SEC (11.7-14.9)
[2024-01-02 10:39] LABS: INR Fingerstick 2.2; Prothrombin Time Fingerstick 23.2 SEC (11.7-14.9)
== END 2024-01-02 18:00 | disposition home or self-care (01) ==
LOC: MTLAB 10:32
PROVIDERS: PCP Family Medicine; Referring Provider Nurse Practitioner Family; Visit Provider Nurse Practitioner Family
DX: I48.0 Paroxysmal atrial fibrillation (principal); Z79.01 Long term (current) use of anticoagulants
CPT/HCPCS: 36416; 85610

== ENCOUNTER 2024-01-04 16:13 | Emergency (ER) | payer MEDICARE, OTHER, SELFPAY ==
[2024-01-04 16:14] VITALS: BP 149/67; PULSE 54; RESP 16; TEMP 36.6; O2SAT 98; BMI 55.7
--- NOTE | 2024-01-04 16:51 | EKG12_ITS ---
Test Reason : REPEAT-CP Blood Pressure : */* mmHG Vent. Rate : 49 BPM Atrial Rate : 49 BPM P-R Int : 256 ms QRS Dur : 88 ms QT Int : 492 ms P-R-T Axes : 77 35 49 degrees QTcB Int : 444 ms Sinus bradycardia with 1st degree A-V block Otherwise normal ECG Confirmed by EDUARDO LENZ, HERMAN ([id number]), assignment desk editor RUEL LYNN ([id number]) on 01/07/2024 9:36:26 AM Referred By: Malik Mcbride Confirmed By: HERMAN CLARK MD
--- NOTE | 2024-01-04 17:00 | ED.VIS.CHEST ---
HPI History of Present Illness Chief Complaint: Chest Pain Informant: patient and EMS Narrative Narrative: 73-year-old male history coronary artery disease presenting to the emergency department via EMS with a chief complaint of chest pain. Patient states about 1 hour prior to my history he was sitting in his recliner watching television when he has sudden onset of pressure in his xiphoid region. It did not radiate anywhere did not make him nauseated. He states he felt this in February when he was transferred to [facility] where he underwent a cardiac cath and stent placement. He follows with Dr. Simmons locally. He states his symptoms have currently subsided. EMS notes that when the initially evaluated him he was in atrial fibrillation with a rate of around 42. Patient reportedly takes Coumadin. He is also on Plavix. He notes he has a dysfunctional gallbladder but states that it is bypassed so it does not work and nothing goes in it. He denies any recent dyspepsia. 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 Wears glasses Ambulates with cane Gout Arthritis Chronic UTI Former smoker Pure hypercholesterolemia Paroxysmal atrial fibrillation Polyarthritis Atherosclerotic heart disease of [place] coronary artery without angina pectoris History of left heart catheterization (LHC) (~07/29/19) Atrial fibrillation Essential hypertension CKD (chronic kidney disease), stage III Anxiety and depression Viral syndrome GERD (gastroesophageal reflux disease) Morbid obesity Depression Home Medications ?Medication ?Instructions ?Recorded ?Last Taken ?Type citalopram 20 mg tablet 20 mg PO DAILY MOOD 09/21/14 02/16/23 History tamsulosin 0.4 mg capsule 0.4 mg PO DAILY bph 05/18/19 02/16/23 History hydroxychloroquine 200 mg tablet 200 mg PO BID arthritis 04/25/21 02/16/23 History isosorbide mononitrate 60 mg 60 mg PO BID heart 02/17/23 06/18/23 04:10 History tablet,extended release 24 hr clopidogrel 75 mg tablet 75 mg PO DAILY blood thinner 04/11/23 Unknown History amoxicillin 875 mg tablet 875 mg PO Q12H OSTEOMYELITIS 05/09/23 Unknown History atorvastatin 80 mg tablet 80 mg PO QHS CHOLESTEROL 05/09/23 Unknown History food supplemt, lactose-reduced 120 ml PO BIDCM 05/09/23 Unknown History 0.06 gram-1 kcal/mL oral liquid (Boost High Protein) melatonin 3 mg tablet 3 mg PO QHS PRN sleep 05/09/23 Unknown History ranolazine 500 mg tablet,extended 500 mg PO BID HEART DISEASE 05/09/23 06/18/23 04:10 History release,12 hr warfarin 4 mg tablet 4 mg PO .COMPLEX #180 tabs 07/17/23 Unknown Rx esomeprazole magnesium 20 mg 20 mg PO DAILY 08/07/23 Unknown History capsule,delayed release (Nexium) metoprolol succinate 50 mg 50 mg PO BID PRN BLOOD PRESSURE 08/07/23 Unknown History tablet,extended release 24 hr mirtazapine 30 mg disintegrating 30 mg PO QHS 08/07/23 Unknown History tablet multivitamin 1 tab PO DAILY 08/07/23 Unknown History losartan 50 mg tablet 50 mg PO QDAY 11/21/23 Unknown History Allergy/AdvReac Type Severity Reaction Status Date / Time bee venom protein (honey bee) Allergy Hives Verified 01/04/24 16:17 amlodipine AdvReac Severe severe Verified 01/04/24 16:17 swelling in hands and feet ceftriaxone AdvReac Nausea/Vom/ Verified 01/04/24 16:17 Diarrhea spider venom AdvReac Other Verified 01/04/24 16:17 Family History Father Heart disease Diabetes CAD (coronary artery disease) History of coronary artery bypass surgery Cardiac pacemaker in situ Pure hypercholesterolemia Surgical History History of back surgery History of esophagogastroduodenoscopy (EGD) History of coronary artery stent placement H/O umbilical hernia repair History of inguinal hernia repair, bilateral History of cystoscopy History of knee surgery History of total right knee replacement Social History housing: fpc Smoking Status: Former smoker how long ago did patient quit smokin alcohol intake: never substance use type: does not use caffeine: Yes Type: tea Number of servings: 2 ROS ROS ED Constitutional Constitutional ED: Denies chills, fever(s) or weight loss Eyes Eyes: Denies change in vision or diplopia ENT ENT ED: Denies ear pain, rhinorrhea or sore throat Cardiovascular Cardiovascular: Reports as per HPI and chest pain; Denies orthopnea, palpitations or racing heartbeat Respiratory/Chest Respiratory/Chest: Denies cough, dyspnea or orthopnea Gastrointestinal Gastrointestinal: Denies abdominal pain, diarrhea, nausea or vomiting Genitourinary Genitourinary ED: Denies dysuria, hematuria or urinary frequency Musculoskeletal Musculoskeletal: Denies arthralgias or myalgias Integumentary Denies abscess or rash Neurologic Neurologic: Denies headache(s) or weakness Psychiatric Psychiatric: Denies anxiety, depression, suicidal ideation or suicidal thoughts Endocrine Endocrinology: Denies polydipsia, polyphagia or polyuria Allergic/Immunologic Allergic/Immunologic ED: Denies mouth swelling, tongue swelling or urticaria EXAM Physical Exam Const Vital Signs: 01/04/24 16:14 01/04/24 16:18 01/04/24 17:14 Temperature 97.9 F Temperature Source Oral Pulse Rate 54 L 48 L Respiratory Rate 16 17 Respiratory Effort Normal Non-Labored Blood Pressure 149/67 H 145/61 H Blood Pressure Mean 94 89 Pulse Ox 98 98 Oxygen Delivery Method Room Air 01/04/24 18:00 01/04/24 19:00 Temperature Temperature Source Pulse Rate 49 L 49 L Respiratory Rate 14 16 Respiratory Effort Blood Pressure 151/63 H 146/61 H Blood Pressure Mean 92 89 Pulse Ox 99 98 Oxygen Delivery Method Room Air Positive well nourished and well developed General Appearance ED: well developed HEENT Reports normocephalic, head/scalp atraumatic and moist mucous membranes Eyes PERRL and EOMs intact bilaterally Neck no lymphadenopathy, supple and no JVD Resp normal respiratory effort and clear to auscultation bilaterally Cardio regular rhythm and no murmurs Rhythm: abnormal rhythm irregularly irregular GI normal to inspection, nondistended, normoactive bowel sounds and non-tender Palpation: soft Back/Spine no CVA tenderness and normal ROM Extremity normal to inspection General Extremety ED: Negative for edema General Extremity: Negative for edema Neuro oriented x3 and CN's II-XII intact bilaterally Sensorium / Orientation: alert Motor Exam: strength 5/5 throughout Psych mental status grossly normal Mood & Affect: Negative for depressed or tearful Skin no rashes or lesions noted and no wounds MDM MDM MDM Narrative Medical decision making narrative: Differential diagnosis would include but not limited to acute coronary syndrome pulmonary embolism cardiac dysrhythmia gastritis esophageal spasm biliary colic pancreatitis 2 sets of cardiac enzymes are -2 EKGs are nonischemic in nature. His INR is therapeutic at 2.0 white count 6.8 hemoglobin 12.1 platelet count of 188 normal LFTs alkaline phosphatase noted to be 149 lipase 44 my independent interpretation of the chest x-ray is no acute process. Patient had a brief episode of discomfort here in the emergency room. I spoke with cardiology. In light of the -2 enzymes 2 EKGs 1 with symptomology I do not feel strongly that this is cardiac in nature. Patient will be advised to follow-up return if worsening or concerns History & Record Review Discussion w/independent historian: EMS personnel, Patient and Significant other Lab Data Attestation: I reviewed the patient's lab results. Labs: Laboratory Results - last 24 hr 01/04/24 01/04/24 01/04/24 16:23 16:25 18:28 WBC 6.8 RBC 3.90 L Hgb 12.1 L Hct 37.8 L MCV 96.9 H MCH 31.0 MCHC 32.0 RDW Std Deviation 57.5 H RDW Coeff of Abdiel 16.0 H Plt Count 188 MPV 11.8 Immature Gran % (Auto) 0.400 Neut % (Auto) 73.8 H Lymph % (Auto) 13.6 L [place] % (Auto) 10.7 H Eos % (Auto) 1.2 Baso % (Auto) 0.3 Absolute Neuts (auto) 5.0 Absolute Lymphs (auto) 0.92 Nucleated RBC % 0 PT 22.1 H INR 2.0 Sodium 140 Potassium 4.0 Chloride 107 Carbon Dioxide 27.0 Anion Gap 6 BUN 29 H Creatinine 1.50 H Estim Creat Clear Calc 70.87 Est GFR (MDRD) Af Amer 59 L Est GFR (MDRD) Non-Af 49 L BUN/Creatinine Ratio 19.3 Glucose 125 H Calcium 8.4 L Total Bilirubin 0.60 Direct Bilirubin 0.23 AST 36 ALT 19 Alkaline Phosphatase 149 H Troponin I High Sens 8 7 Total Protein 7.1 Albumin 3.0 L Globulin 4.1 Lipase 44 Radiography Diagnostic Testing: Clinical Impression(s) from Imaging Studies Chest X-Ray 01/04/24 17:05 IMPRESSION: Possible mild atelectasis or infiltrate in the right lung base. Electronically Signed: Rodrigo Wilhelm MD at 17:36 EDT , EKG Initial EKG: Attestation: I personally reviewed and interpreted this EKG as follows: Comments: Atrial fibrillation with slow ventricular response of 55 bpm Follow-up EKG: Attestation: I personally reviewed and interpreted this EKG as follows: Comments: Atrial fibrillation at a ventricular rate of 49 bpm Management Discussion w/another healthcare provider: Household Appliance Repairer (Dr. Thacker (Cardiology)) Discharge Plan Triage Chief Complaint: Chest Pain ED Provider: Malik Mcbride Dx/Rx/DC Orders Clinical Impression: Chest pain, Atrial fibrillation, Anticoagulated Instructions: ED Chest Pain, Uncertain Cause Prescriptions: No Action hydroxychloroquine 200 mg tablet 200 mg PO BID mirtazapine 30 mg tablet,disintegrating 30 mg PO QHS esomeprazole magnesium [Nexium] 20 mg capsule,delayed release(DR/EC) 20 mg PO DAILY multivitamin Tablet 1 tab PO DAILY losartan 50 mg tablet 50 mg PO QDAY citalopram 20 MG tablet 20 mg PO DAILY tamsulosin 0.4 MG capsule 0.4 mg PO DAILY isosorbide mononitrate 60 mg tablet extended release 24 hr 60 mg PO BID clopidogrel 75 mg tablet 75 mg PO DAILY melatonin 3 mg tablet 3 mg PO QHS PRN (Reason: sleep) atorvastatin 80 mg tablet 80 mg PO QHS ranolazine 500 mg tablet extended release 12 hr 500 mg PO BID amoxicillin 875 mg tablet 875 mg PO Q12H Boost High Protein 0.06 gram- 1 kcal/mL liquid 120 ml PO BIDCM metoprolol succinate 50 mg tablet extended release 24 hr 50 mg PO BID PRN (Reason: BLOOD PRESSURE) warfarin 4 mg tablet 4 mg PO .COMPLEX Qty: 180 3RF Protocol: Dose Management Condition: Sunday Dose/Route: 8 mg Instruction: 2 x 4 mg tablets Condition: Sunday Dose/Route: 8 mg Instruction: 2 x 4 mg tablets Condition: Sunday Dose/Route: 8 mg Instruction: 2 x 4 mg tablets Condition: Sunday Dose/Route: 8 mg Instruction: 2 x 4 mg tablets Condition: Dose/Route: 8 mg Instruction: 2 x 4 mg tablets Condition: Sunday Dose/Route: 8 mg Instruction: 2 x 4 mg tablets Condition: Sunday Dose/Route: 8 mg Instruction: 2 x 4 mg tablets Protocol Text: Adjustment Start Date: Sunday01/02/24 INR Value: 2.2 INR Date: 01/02/24 Recheck Date: 02/01/24 Rx Instructions: 4 mg orally 1 tablet on Sunday and Sunday, and 2 tablets (8mg) Sunday through Sunday: OR DIRECTED.; will be stopped one Eliquis is approved or patient assistance Primary Care Provider: Cornell Gunter Referrals: Denny Thacker MD [Med Staff - Active Staff] - (call to arrange follow up) Cornell Gunter MD [Primary Care Provider] - As Needed Print Language: Ecuadorean Disposition Disposition: Home, Self Care
--- NOTE | 2024-01-04 17:05 | RAD_ITS ---
STUDY: X-RAY CHEST REASON FOR EXAM: Male, 73 years old. chest pain TECHNIQUE: Single AP portable view of the chest. COMPARISON: 10/15/2023. FINDINGS: Normal lung volumes. Possible mild atelectasis or infiltrate in the right lung base. No effusions. Normal size heart. Normal mediastinum and [place]. Normal visualized pulmonary arteries. Normal visualized aortic arch and descending thoracic aorta. There are diffuse degenerative changes of the visualized thoracic spine. Stable postsurgical changes of the thoracolumbar spine. Normal visualized ribs, clavicles, and shoulders. There is no demonstrated abnormality of the visualized soft tissue structures of the upper abdomen. RAD/Chest 1 View (Portable) IMPRESSION: Possible mild atelectasis or infiltrate in the right lung base. Electronically Signed: Rodrigo Wilhelm MD at 17:36 EDT ,
[2024-01-04 17:14] VITALS: BP 145/61; PULSE 48; RESP 17; O2SAT 98
[2024-01-04 17:14] LABS: Absolute Lymphocyte Count 0.92 X10^3/uL (0.83-4.51); Basophil# 0.02 X10^3/uL; Basophil% 0.3 % (0-1); Eosinophil# 0.08 X10^3/uL; Eosinophils% 1.2 % (0-5); Hematocrit 37.8 % (40-54); Hemoglobin 12.1 g/dL (13.0-16.5); Lymphocyte # 0.92 X10^3/ul (0.83-4.51); Lymphocyte % 13.6 % (19-41); Mean Corpuscular Volume 96.9 fL (80-94); Mean Platelet Vol. 11.8 fl (6.2-12.0); Monocyte# 0.72 X10^3/uL; Monocyte% 10.7 % (0-10); NRBC Flagged by Analyzer 0 % (0-5); Neutrophil # 4.99 X10^3/uL (2.7-7.7); Neutrophil % 73.8 % (47-70); Platelet Count 188 K/mm3 (150-450); RBC Distribution Width SD 57.5 fl (35.1-43.9); White Blood Count 6.8 K/mm3 (4.4-11.0)
[2024-01-04 17:29] LABS: Prothrombin Time (Protime)PT. 22.1 SECONDS (11.7-14.9)
[2024-01-04 17:30] LABS: AST(SGOT) 36 U/L (15-37); Alanine Aminotransfer ALT/SGPT 19 U/L (16-61); Alkaline Phosphatase 149 U/L (45-117); Anion Gap 6 (5-15); BUN 29 mg/dL (7-18); BUN/Creat Ratio 19.3 RATIO (10-20); Bilirubin, Direct 0.23 mg/dL (0.00-0.30); Calcium,Total 8.4 mg/dL (8.5-10.1); Chloride 107 mmol/L (98-107); EST Glomerular Filtration Rate 49 mL/min (>60); Est Glom Filt Rate - Afr Amer 59 mL/min (>60); Estimated Creatinine Clearance 70.87 ml/min; Globulin 4.1 g/dL (2.2-4.2); Glucose 125 mg/dL (74-106); Lipase 44 U/L (13-75); Protein, Total 7.1 g/dL (6.4-8.2); Sodium Level 140 mmol/L (136-145); Troponin-I HS (w/2H Reflex) 8 pg/mL (3.0-78.0)
[2024-01-04 18:00] VITALS: BP 151/63; PULSE 49; RESP 14; O2SAT 99
--- NOTE | 2024-01-04 18:00 | EKG12_ITS ---
Test Reason : CP Blood Pressure : */* mmHG Vent. Rate : 55 BPM Atrial Rate : * BPM P-R Int : * ms QRS Dur : 92 ms QT Int : 474 ms P-R-T Axes : * 44 58 degrees QTcB Int : 453 ms Atrial fibrillation with slow ventricular response Low voltage QRS Abnormal ECG Confirmed by EDUARDO LENZ, HERMAN ([id number]), mapping editor RUEL LYNN ([id number]) on 01/07/2024 9:36:48 AM Referred By: Malik Mcbride Confirmed By: HERMAN CLARK MD
[2024-01-04 19:00] VITALS: BP 146/61; PULSE 49; RESP 16; O2SAT 98
[2024-01-04 19:06] LABS: Reflex Troponin-HS? (from REC) Y
[2024-01-04 19:43] LABS: Troponin-I HS 7 pg/mL (3.0-78.0)
[2024-01-04 20:01] VITALS: BP 151/71; PULSE 49; RESP 16; TEMP 36.6; O2SAT 99
== END 2024-01-04 20:13 | disposition home or self-care (01) ==
PROVIDERS: Emergency Provider Emergency Medicine; PCP Family Medicine; Referring Provider Emergency Medicine; Visit Provider Emergency Medicine
DX: R07.9 Chest pain, unspecified (principal); I48.0 Paroxysmal atrial fibrillation; N18.30 Chronic kidney disease, stage 3 unspecified; E78.00 Pure hypercholesterolemia, unspecified; I12.9 Hypertensive chronic kidney disease with stage 1 through stage 4 chronic kidney disease, or unspecified chronic kidney disease; I25.10 Atherosclerotic heart disease of native coronary artery without angina pectoris; Z79.01 Long term (current) use of anticoagulants; Z79.02 Long term (current) use of antithrombotics/antiplatelets; Z79.899 Other long term (current) drug therapy; Z87.891 Personal history of nicotine dependence; Z95.5 Presence of coronary angioplasty implant and graft
CPT/HCPCS: 71045; 80048; 80076; 83690; 84484; 85025; 85610; 93005; 99285; A4216

== ENCOUNTER 2024-01-16 09:02 | Day surgery (SDC) | payer MEDICARE, OTHER, SELFPAY ==
[2024-01-16] VITALS (7 sets, daily range): BP systolic 150–187; BP diastolic 66–78; PULSE 50–56; RESP 16–20; TEMP 36.5–37.2; O2SAT 99–100; BMI 44.2
[2024-01-16 09:16] LABS: INR Fingerstick 1.1; Prothrombin Time Fingerstick 13.5 SEC (11.7-14.9)
== END 2024-01-16 15:01 | disposition home or self-care (01) ==
LOC: EN 09:05 → AC 09:06
PROVIDERS: PCP Family Medicine; Referring Provider Family Medicine; Visit Provider Surgery
PROC: 0DJD8ZZ Inspection of Lower Intestinal Tract, Via Natural or Artificial Opening Endoscopic (ICD-10-PCS; CPT 45378; principal; 2024-01-16 10:40)
DX: Z12.11 Encounter for screening for malignant neoplasm of colon (principal); I48.0 Paroxysmal atrial fibrillation; N18.30 Chronic kidney disease, stage 3 unspecified; I25.10 Atherosclerotic heart disease of native coronary artery without angina pectoris; I12.9 Hypertensive chronic kidney disease with stage 1 through stage 4 chronic kidney disease, or unspecified chronic kidney disease; Z79.01 Long term (current) use of anticoagulants; Z87.891 Personal history of nicotine dependence; E78.00 Pure hypercholesterolemia, unspecified; Z79.02 Long term (current) use of antithrombotics/antiplatelets; K21.9 Gastro-esophageal reflux disease without esophagitis; Z79.899 Other long term (current) drug therapy
CPT/HCPCS: G0121; 36416; 85610; J7040; A4216; J2405

== ENCOUNTER 2024-02-14 11:03 | Outpatient (RCR) | payer MEDICARE, OTHER, SELFPAY ==
[2024-02-04 09:17] LABS: INR Fingerstick 1.3; Prothrombin Time Fingerstick 15.3 SEC (11.7-14.9)
[2024-02-04 11:19] LABS: ALB/GLOB Ratio 0.7 RATIO (0.9-2.4); AST(SGOT) 18 U/L (15-37); Alanine Aminotransfer ALT/SGPT 14 U/L (16-61); Albumin, Serum 3.1 g/dL (3.2-5.0); Alkaline Phosphatase 136 U/L (45-117); Anion Gap 6 (5-15); BUN 26 mg/dL (7-18); BUN/Creat Ratio 15.8 RATIO (10-20); Calcium,Total 9.3 mg/dL (8.5-10.1); Chloride 110 mmol/L (98-107); Cholesterol 133 mg/dL (200); Creatinine, Serum 1.65 mg/dL (0.70-1.30); EST Glomerular Filtration Rate 44 mL/min (>60); Est Glom Filt Rate - Afr Amer 53 mL/min (>60); Globulin 4.3 g/dL (2.2-4.2); Glucose 97 mg/dL (74-106); High Density Lipoprotein 60 mg/dL; Potassium 4.2 mmol/L (3.5-5.1); Protein, Total 7.4 g/dL (6.4-8.2); Sodium Level 141 mmol/L (136-145); Triglycerides 82 mg/dL; Very Low Density Lipoprotein 16 mg/dL (5-40)
[2024-02-07 10:34] LABS: INR Fingerstick 1.4; Prothrombin Time Fingerstick 16.2 SEC (11.7-14.9)
[2024-02-14 11:12] LABS: INR Fingerstick 2.7; Prothrombin Time Fingerstick 28.7 SEC (11.7-14.9)
== END 2024-02-14 18:00 | disposition home or self-care (01) ==
LOC: MTLAB 11:03
PROVIDERS: PCP Family Medicine; Referring Provider Nurse Practitioner Family; Visit Provider Nurse Practitioner Family
DX: I48.91 Unspecified atrial fibrillation (principal); Z79.01 Long term (current) use of anticoagulants; I12.9 Hypertensive chronic kidney disease with stage 1 through stage 4 chronic kidney disease, or unspecified chronic kidney disease; N18.9 Chronic kidney disease, unspecified
CPT/HCPCS: 36415; 36416; 80053; 80061; 85610

== ENCOUNTER 2024-04-02 10:26 | Outpatient (RCR) | payer MEDICARE, OTHER, SELFPAY ==
[2024-03-10 14:06] LABS: INR Fingerstick 2.9; Prothrombin Time Fingerstick 30.1 SEC (11.7-14.9)
[2024-03-31 13:39] LABS: INR Fingerstick 6.3; Prothrombin Time Fingerstick 58.6 SEC (11.7-14.9)
[2024-03-31 15:19] LABS: International Normalized Ratio 4.4; Prothrombin Time (Protime)PT. 42.8 SECONDS (11.7-14.9)
[2024-04-02 12:24] LABS: International Normalized Ratio 3.1; Prothrombin Time (Protime)PT. 32.6 SECONDS (11.7-14.9)
[2024-04-04 07:43] LABS: INR Fingerstick 4.1; Prothrombin Time Fingerstick 40.7 SEC (11.7-14.9)
== END 2024-04-02 18:00 | disposition home or self-care (01) ==
LOC: MTLAB 10:26
PROVIDERS: PCP Family Medicine; Referring Provider Nurse Practitioner Family; Visit Provider Nurse Practitioner Family
DX: I48.0 Paroxysmal atrial fibrillation (principal); Z79.01 Long term (current) use of anticoagulants

== ENCOUNTER 2024-04-09 09:18 | Outpatient (RCR) | payer MEDICARE, OTHER, SELFPAY ==
[2024-04-09 09:41] LABS: Prothrombin Time Fingerstick 21.7 SEC (11.7-14.9)
== END 2024-05-02 18:00 | disposition home or self-care (01) ==
LOC: MTLAB 09:18
PROVIDERS: PCP Family Medicine; Referring Provider Nurse Practitioner Family; Visit Provider Nurse Practitioner Family
DX: I48.0 Paroxysmal atrial fibrillation (principal); Z79.01 Long term (current) use of anticoagulants
CPT/HCPCS: 36415; 36416; 80053; 85610

== ENCOUNTER → 2024-04-17 | Outpatient (CLI) | payer MEDICARE, OTHER, SELFPAY | END | disposition home or self-care (01) | LOC: MTLAB 10:21 | PROVIDERS: PCP Family Medicine; Referring Provider Internal Medicine Rheumatology; Visit Provider Internal Medicine Rheumatology | DX: M06.4 Inflammatory polyarthropathy (principal); Z79.899 Other long term (current) drug therapy ==

== ENCOUNTER 2024-05-05 14:16 | Outpatient (RCR) | payer MEDICARE, OTHER, SELFPAY ==
[2024-05-05 15:35] LABS: Absolute Lymphocyte Count 0.91 X10^3/uL (0.83-4.51); Absolute Neutrophil Count 5.7 X10^3/uL (2.0-7.7); Basophil# 0.04 X10^3/uL; Basophil% 0.5 % (0-1); Eosinophil# 0.18 X10^3/uL; Eosinophils% 2.2 % (0-5); Hematocrit 33.4 % (40-54); Hemoglobin 10.5 g/dL (13.0-16.5); Lymphocyte # 0.91 X10^3/ul (0.83-4.51); Lymphocyte % 11.3 % (19-41); Mean Corp Hgb Conc 31.4 g/dL (32-36); Mean Corpuscular Hgb 29.2 pg (27.0-32.0); Mean Corpuscular Volume 92.8 fL (80-94); Mean Platelet Vol. 10.3 fl (6.2-12.0); NRBC Flagged by Analyzer 0 % (0-5); Neutrophil # 5.65 X10^3/uL (2.7-7.7); Neutrophil % 70.5 % (47-70); Platelet Count 292 K/mm3 (150-450); RBC Distribution Width CV 15.5 % (11.6-14.6); RBC Distribution Width SD 53.1 fl (35.1-43.9)
[2024-05-05 16:24] LABS: International Normalized Ratio 4.3
[2024-05-05 21:27] LABS: ALB/GLOB Ratio 0.9 RATIO (0.9-2.4); AST(SGOT) 20 U/L (<=37); Alanine Aminotransfer ALT/SGPT 7 U/L (<=46); Albumin, Serum 3.4 g/dL (3.4-4.8); Alkaline Phosphatase 181 U/L (40-129); Anion Gap 10 (5-15); BUN 26 mg/dL (4-19); BUN/Creat Ratio 15.6 RATIO (10-20); Calcium 9.2 mg/dL (7.6-11.0); Carbon Dioxide 23.7 mmol/L (22.0-29.0); Chloride 105 mmol/L (96-108); Creatinine, Serum 1.67 mg/dL (0.70-1.20); EST Glomerular Filtration Rate 43 (>60); Globulin 3.9 g/dL (2.2-4.2); Glucose 78 mg/dL (70-99); Potassium 4.5 mmol/L (3.3-5.1); Protein, Total 7.3 g/dL (5.9-8.4); Sodium Level 139 mmol/L (133-145); Total Bilirubin 0.34 mg/dL (0.00-1.30)
== END 2024-05-05 18:00 | disposition home or self-care (01) ==
LOC: LAB 14:16
PROVIDERS: PCP Family Medicine; Referring Provider Nurse Practitioner Family; Visit Provider Nurse Practitioner Family
DX: M06.4 Inflammatory polyarthropathy (principal); Z79.899 Other long term (current) drug therapy; I48.0 Paroxysmal atrial fibrillation; Z79.01 Long term (current) use of anticoagulants
CPT/HCPCS: 36415; 80053; 85025; 85610

== ENCOUNTER 2024-05-09 21:27 | Inpatient (IN) | payer MEDICARE, OTHER, SELFPAY ==
[2024-05-09 21:31] VITALS: BP 142/65; PULSE 53; RESP 18; TEMP 36.8; O2SAT 97; BMI 47.8
--- NOTE | 2024-05-09 22:14 | RAD_ITS ---
PROCEDURE: PELVIS 1 OR 2 VIEWS REASON FOR EXAM: Pain TECHNIQUE: 1 view(s) of the pelvis. COMPARISON: None FINDINGS: No fracture. Heterogeneous lytic appearance of the right inferior pubic ramus. Normal alignment at the hips and sacroiliac joints. Soft tissues are unremarkable. RAD/Pelvis 1 or 2 Views IMPRESSION: Heterogeneous lytic appearance of the right inferior pubic ramus suspicious for lesion and pathological fracture, MRI versus CT of the pelvis may be obtained for further characterization. Reading Location: [facility]
--- NOTE | 2024-05-09 22:15 | ED.VIS.LOWEX ---
HPI History of Present Illness Chief Complaint: Lower Extremity Injury Informant: patient and EMS Narrative Narrative: Patient states he has had right hip pain that was worse tonight. When asked where exactly is having pain he points to the right buttock where it joins the thigh posteriorly. Does not have lateral or anterior groin pain. He states that it has been hurting him for about a month and felt like a toothache. Then he went to sit down to go to the bathroom tonight and all of a sudden he felt sharp pains that were disabling to the point where he could not get up and he has not been able to put any weight on it. Therefore EMS was called to bring him here. Denies any pain shooting down into his foot or anywhere else, he denies any numbness in his legs now or before now. He denies any bowel or bladder dysfunction or saddle anesthesia. He has a prior total knee arthroplasty, no hip surgeries. He states he has had significant remote surgery in his back but he is not having pain there. He denies pain or issue elsewhere. Denies any fevers, chills, systemic symptoms, recent illness. He is on clopidogrel because of his history of stents and he is on warfarin because of a history of A-fib. [facility] Medical History Osteomyelitis History of echocardiogram [facility] Card[facility] follow-up encounter Anemia detention (current) use of anticoagulants Wears glasses Ambulates with cane Gout Arthritis Former smoker Pure hypercholesterolemia Paroxysmal atrial fibrillation Polyarthritis Atherosclerotic heart disease of [place] coronary artery without angina pectoris History of left heart catheterization (LHC) (~07/29/19) Atrial fibrillation Essential hypertension CKD (chronic kidney disease), stage III Anxiety and depression Viral syndrome GERD (gastroesophageal reflux disease) Morbid obesity Depression Home Medications ?Medication ?Instructions ?Recorded ?Last Taken ?Type citalopram 20 mg tablet 20 mg PO DAILY MOOD 09/21/14 02/16/23 History tamsulosin 0.4 mg capsule 0.4 mg PO QHS bph 05/18/19 02/16/23 History hydroxychloroquine 200 mg tablet 200 mg PO BID arthritis 04/25/21 01/15/24 History isosorbide mononitrate 60 mg 60 mg PO BID heart 02/17/23 01/15/24 History tablet,extended release 24 hr amoxicillin 875 mg tablet 875 mg PO Q12H OSTEOMYELITIS 05/09/23 01/15/24 History melatonin 3 mg tablet 3 mg PO QHS PRN sleep 05/09/23 01/15/24 History ranolazine 500 mg tablet,extended 500 mg PO BID HEART DISEASE 05/09/23 06/18/23 04:10 History release,12 hr esomeprazole magnesium 20 mg 20 mg PO DAILY 08/07/23 01/15/24 History capsule,delayed release (Nexium) metoprolol succinate 50 mg 50 mg PO BID BLOOD PRESSURE 08/07/23 01/15/24 History tablet,extended release 24 hr mirtazapine 30 mg disintegrating 30 mg PO QHS 08/07/23 01/15/24 History tablet multivitamin 1 tab PO DAILY 08/07/23 01/15/24 History losartan 50 mg tablet 50 mg PO QDAY PRN BP 11/21/23 01/15/24 History warfarin 4 mg tablet 4 mg PO DAILY 01/14/24 01/10/24 History atorvastatin 80 mg tablet 80 mg PO QHS CHOLESTEROL #90 tabs 01/24/24 Unknown Rx clopidogrel 75 mg tablet 75 mg PO DAILY 05/09/24 Unknown History Allergy/AdvReac Type Severity Reaction Status Date / Time bee venom protein (honey bee) Allergy Hives Verified 05/09/24 21:28 amlodipine AdvReac Severe severe Verified 05/09/24 21:28 swelling in hands and feet ceftriaxone AdvReac Nausea/Vom/ Verified 05/09/24 21:28 Diarrhea spider venom AdvReac Other Verified 05/09/24 21:28 Family History Father Heart disease Diabetes CAD (coronary artery disease) History of coronary artery bypass surgery Cardiac pacemaker in situ Pure hypercholesterolemia Surgical History History of back surgery History of esophagogastroduodenoscopy (EGD) History of coronary artery stent placement H/O umbilical hernia repair History of inguinal hernia repair, bilateral History of cystoscopy History of knee surgery History of total right knee replacement Social History housing: snf Smoking Status: Former smoker how long ago did patient quit smokin alcohol intake: never substance use type: does not use caffeine: Yes Type: tea Number of servings: 2 ROS ROS ED Constitutional Constitutional ED: Denies chills or fever(s) Gastrointestinal Gastrointestinal: Denies abdominal pain, constipation, fecal incontinence, nausea or vomiting Genitourinary Genitourinary ED: Reports other Details: no urinary retention ; Denies abdominal discomfort or urinary incontinence Musculoskeletal Musculoskeletal: Reports extremity pain; Denies neck pain Integumentary Denies Abrasions, rash or wounds Neurologic Neurologic: Denies paresthesias or weakness EXAM Physical Exam Const Vital Signs: 05/09/24 21:31 Temperature 98.3 F Temperature Source Oral Pulse Rate 53 L Respiratory Rate 18 Blood Pressure 142/65 H Blood Pressure Mean 90 Pulse Ox 97 Oxygen Delivery Method Room Air Positive well nourished, well developed and obese General Appearance ED: well developed and NAD Nutritional Appearance: obese HEENT Negative for trauma or tenderness Eyes PERRL and EOMs intact bilaterally Neck full ROM and supple GI normal to inspection, nondistended, normoactive bowel sounds, soft to palpation and non-tender GI Narrative: Obesity limits exam but no pulsatile mass palpated. Back/Spine normal ROM and normal to inspection Back/Spine Narrative: Negative contralateral/cross straight leg raise. Not able to perform ipsilateral right lower extremity straight leg raise due to pain in the right buttock with any movement. Lumbar Spine / Lower Back: ROM limited; Negative for lumbar spinal tenderness Extremity normal to inspection, full ROM and no pedal edema Extremity Narrative: Passively able to bend right knee and place foot on the bed with transient discomfort, then pain in the buttock but not the groin with mild passive internal or external rotation. No deformities. Tenderness in the right buttock but not the greater trochanter or anywhere else on the right lower extremity. The femur and the knee are nontender but with palpation in the buttock patient has pain shooting down into the knee area but not below. Intact 2+ dorsalis pedis pulses. Neuro oriented x3, no focal motor deficits and no sensory deficits noted Sensorium / Orientation: alert Motor Exam: strength 5/5 throughout and clonus absent Deep Tendon Reflexes: Rt Patellar (L4): 2+, Lt Patellar (L4): 2+, Rt Ankle (S1): 2+ and Lt Ankle (S1): 2+ Deep Tendon Reflexes Back: Rt Patellar (L4): 2+, Lt Patellar (L4): 2+, Rt Ankle (S1): 2+ and Lt Ankle (S1): 2+ Plantar Reflex: Downgoing: bilateral Psych mental status grossly normal and thought process normal Skin no wounds Rashes: no rashes MDM MDM MDM Narrative Medical decision making narrative: Obtain labs because the patient is on warfarin and is unable to bear weight or walk and may need to be admitted; his INR is 4.0 the rest of his labs are unremarkable, little bit of chronic renal insufficiency. Obtained x-rays of the right femur in addition to the pelvis/right hip. By my interpretation, all 5 of these x-rays showed no acute fracture or dislocation or obvious abnormality. Total knee arthroplasty noted. I reviewed the radiology interpretation which I agree with, he confusingly says that there is no acute fractures but then they are concerned about a possible pathologic fracture of the right inferior pubic ramus, recommending fast imaging so I sent him for CT, all this while we provided pain and nausea control. On my interpretation, the CT confirms what appears to be a pathologic fracture of the right inferior pubic ramus. The rest of the pelvis and hip joints appear to be unremarkable. Patient states he has been diagnosed with 2 different types of skin cancer, a basal cell carcinoma on his face, and possibly melanoma but he is not sure even when I asked specifics. Patient asking for more pain control, he cannot move without being in significant pain, and cannot bear weight on his right lower extremity. For these reasons, discussed with hospitalist for admission. Asked to discussed with orthopedics Dr. Hayes said no changes in management from his standpoint, weightbearing as tolerated. Lab Data Attestation: I reviewed the patient's lab results. Labs: Laboratory Results - last 24 hr 05/09/24 22:35 WBC 8.4 RBC 3.75 L Hgb 11.0 L Hct 34.3 L MCV 91.5 MCH 29.3 MCHC 32.1 RDW Std Deviation 51.7 H RDW Coeff of Abdiel 15.5 H Plt Count 289 MPV 9.8 Immature Gran % (Auto) 0.600 Neut % (Auto) 73.2 H Lymph % (Auto) 9.5 L [place] % (Auto) 13.9 H Eos % (Auto) 2.3 Baso % (Auto) 0.5 Absolute Neuts (auto) 6.2 Absolute Lymphs (auto) 0.80 L Nucleated RBC % 0 PT 39.7 H INR 4.0 H* Sodium 138 Potassium 4.7 Chloride 104 Carbon Dioxide 24.2 Anion Gap 11 BUN 22 H Creatinine 1.79 H Estim Creat Clear Calc 54.17 Est GFR (MDRD) Non-Af 40 L BUN/Creatinine Ratio 12.0 Glucose 140 H Calcium 9.0 Radiography Diagnostic Testing: Clinical Impression(s) from Imaging Studies Pelvis X-Ray 05/09/24 22:14 IMPRESSION: Heterogeneous lytic appearance of the right inferior pubic ramus suspicious for lesion and pathological fracture, MRI versus CT of the pelvis may be obtained for further characterization. Reading [facility] Femur [facility]-Ray 05/09/24 22:50 IMPRESSION: No gross acute fracture. Heterogeneous lytic appearance of the right inferior pubic ramus, suspicious for a lesion and possibly pathological fracture, MRI versus CTs recommended for further characterization. Reading Location[facility] Pelvis CT 05/10/24 00:00 IMPRESSION: Heterogeneous appearance of the right inferior pubic ramus with pathological fracture, concerning for underlying neoplasm. Please correlate clinically for any remote history of metastatic disease. One or more dose reduction techniques were used (e.g., Automated exposure control, adjustment of the mA and/or kV according to patient size, use of iterative reconstruction technique). Reading Location: [facility] Management Discussion w/another healthcare provider: Hospitalist and Loose Hand Packer (oj carrillo) Discharge Plan Dx/Rx/DC Orders Clinical Impression: Unable to ambulate, Intractable pain, Closed fracture of right inferior pubic ramus, Pathological fracture of pelvis, Supratherapeutic INR Disposition Disposition: [facility]
[2024-05-09] MEDS: Morphine 4 MG/ML Syringe IV (22:34)
[2024-05-09] MEDS: Ondansetron 4 MG/2 ML Vial IV (22:35)
[2024-05-09 22:49] LABS: Absolute Neutrophil Count 6.2 X10^3/uL (2.0-7.7); Basophil# 0.04 X10^3/uL; Basophil% 0.5 % (0-1); Eosinophil# 0.19 X10^3/uL; Eosinophils% 2.3 % (0-5); Hematocrit 34.3 % (40-54); Lymphocyte % 9.5 % (19-41); Mean Corp Hgb Conc 32.1 g/dL (32-36); Mean Corpuscular Hgb 29.3 pg (27.0-32.0); Mean Corpuscular Volume 91.5 fL (80-94); Mean Platelet Vol. 9.8 fl (6.2-12.0); Monocyte# 1.17 X10^3/uL; Monocyte% 13.9 % (0-10); NRBC Flagged by Analyzer 0 % (0-5); Neutrophil # 6.15 X10^3/uL (2.7-7.7); Neutrophil % 73.2 % (47-70); Platelet Count 289 K/mm3 (150-450); RBC Distribution Width CV 15.5 % (11.6-14.6); RBC Distribution Width SD 51.7 fl (35.1-43.9); Red Blood Count 3.75 M/mm3 (4.6-6.2); White Blood Count 8.4 K/mm3 (4.4-11.0)
--- NOTE | 2024-05-09 22:50 | RAD_ITS ---
PROCEDURE: FEMUR MIN 2 VIEWS REASON FOR EXAM: Pain TECHNIQUE: 4 view(s) of the right femur. COMPARISON: None. FINDINGS: No fracture. Heterogeneous appearance of the right inferior pubic ramus. Status post knee arthroplasty. Normal alignment at the hip and knee. Soft tissues are unremarkable. RAD/Femur Min 2 Views IMPRESSION: No gross acute fracture. Heterogeneous lytic appearance of the right inferior pubic ramus, suspicious fo r a lesion and possibly pathological fracture, MRI versus CTs recommended for further characterization. Reading Location: [facility]
[2024-05-09 23:06] LABS: Anion Gap 11 (5-15); BUN 22 mg/dL (4-19); Carbon Dioxide 24.2 mmol/L (21.0-32.0); Chloride 104 mmol/L (98-108); Creatinine, Serum 1.79 mg/dL (0.70-1.20); EST Glomerular Filtration Rate 40 (>60); Estimated Creatinine Clearance 54.17 ml/min (50-250); Glucose 140 mg/dL (70-99); Potassium 4.7 mmol/L (3.3-5.1); Sodium Level 138 mmol/L (133-145)
[2024-05-09 23:11] LABS: Prothrombin Time (Protime)PT. 39.7 SECONDS (11.7-14.9)
[2024-05-10] VITALS (10 sets, daily range): BP systolic 127–134; BP diastolic 38–89; PULSE 52–90; RESP 18; TEMP 36.5–36.9; O2SAT 93–99; BMI 46.7; BMI 46.9
--- NOTE | 2024-05-10 | CT_ITS ---
PROCEDURE: PELVIS WITHOUT IV CONTRAST REASON FOR EXAM: Right buttock pain. Abnormal right inferior pubic ramus on x-ray. TECHNIQUE: Pelvis CT without contrast. COMPARISON: X-ray of the pelvis obtained earlier today. FINDINGS: Bones: Heterogeneous appearance of the right inferior pubic ramus with pathological fracture. Hip Joints: Joint spaces are preserved. No subluxation or dislocation. SI Joints: Unremarkable. Soft Tissues: No large hematoma. CT/Pelvis without IV Contrast IMPRESSION: Heterogeneous appearance of the right inferior pubic ramus with pathological fr acture, concerning for underlying neoplasm. Please correlate clinically for any remote history of metastatic disease. One or more dose reduction techniques were used (e.g., Automated exposure contr ol, adjustment of the mA and/or kV according to patient size, use of iterative reconstruction technique). Reading Location[facility]
[2024-05-10] MEDS: Morphine 4 MG/ML Syringe IV ×2 (00:47→11:20)
--- NOTE | 2024-05-10 01:05 | HP.PCM.HOS_ITS ---
HPI - General General Date of Admission: 05/10/24 Date of Service: 05/10/24 Chief Complaint: Intractable hip pain. HPI Narrative The patient is a 73 y/o M w/ PMHx: LILI on CPAP q HS, Hx Osteomyelitis Spine (E. 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 rheumatoid arthritis, BPH, Chronic anemia, Former tobacco use, CKD stage III unclear subtype per GFR trending, PAF, CAD s/p PCI, HTN, HLD, Anxiety and Depression, GERD, Morbid obesity, Former tobacco use who presents to the [facility] ED on 05/10/24 with history of ongoing persistent right hip pain into the right buttock where it joins the thigh posteriorly with no lateral or anterior groin pain which has been ongoing and constant dull aching throb for at least a month however on day of presentation when he went to go to the bathroom to sit down he had sudden onset of severe sharp pain that was debilitating where he could not even get up or bear weight prompting EMS call. He denies any radicular pain or any paresthesias. He denies any change in bowel or bladder or saddle anesthesia. He notes that currently while at rest and not moving his pain is controlled but any time he tries to move or bear weight it is tentative 10 in severity. Workup in the ED included T98.3, heart rate 53, BP 142/65, respiratory rate 18, 97% room air, CBC with WC 8.4, hemoglobin 11, MCV 91.5, platelet 289 with lymphopenia, coags with INR 4.0, BMP with BUN/creat 22/1.79, GFR 40, glucose 140, plain film of the pelvis with heterogeneous lytic appearance of the right inferior pubic rami suspicious for possible lesion or pathologic fracture, plain film of the right femur with no gross acute fracture similarly noting heterogeneous lytic appearance of the right inferior pubic rami suspicious for lesion or possible pathologic fracture, follow-up CT of the pelvis without IV contrast with heterogeneous appearance of the right inferior pubic ramus with pathological fracture concerning for underlying neoplasm. In the ED patient administered morphine 4 mg x 2, zofran 4 mg IV x 1. ED discussed case with orthopedic surgeon on-call Dr. Hayes who noted conservative management, weightbearing as tolerated, pain regimen, oncology workup with no need for orthopedic surgery involvement. [facility] Medical History Osteomyelitis History of echocardiogram History of stress test [facility] Cardiology follow-up encounter Anemia [facility] (current) use of anticoagulants Wears glasses Ambulates with cane Gout Arthritis Former smoker Pure hypercholesterolemia Paroxysmal atrial fibrillation Polyarthritis Atherosclerotic heart disease of [place] coronary artery without angina pectoris History of left heart catheterization (LHC) (~07/29/19) Atrial fibrillation Essential hypertension CKD (chronic kidney disease), stage III Anxiety and depression Viral syndrome GERD (gastroesophageal reflux disease) Morbid obesity Depression Home Medications ?Medication ?Instructions ?Recorded ?Last Taken ?Type citalopram 20 mg tablet 20 mg PO DAILY MOOD 09/21/14 02/16/23 History tamsulosin 0.4 mg capsule 0.4 mg PO QHS bph 05/18/19 1 04/19/22 History hydroxychloroquine 200 mg tablet 200 mg PO BID arthrit is 04/25/21 01/15/24 History isosorbide mononitrate 60 mg 60 mg PO BID heart 01/15/24 History tablet,extended release 24 hr amoxicillin 875 mg tablet 875 mg PO Q12H OSTEOMYELITIS 05/09/23 01/15/24 History melatonin 3 mg tablet 3 mg PO QHS PRN sleep 01/15/24 History ranolazine 500 mg tablet,extended 500 mg PO BID HEART DISEASE 05/09/23 06/18/23 04:10 History release,12 hr esomeprazole magnesium 20 mg 20 mg PO DAILY 08/07/23 1 03/16/23 History capsule,delayed release (Nexium) metoprolol succinate 50 mg 50 mg PO BID BLOOD PRESSURE 08/07/23 01/15/24 History tablet,extended release 24 hr mirtazapine 30 mg disintegrating 30 mg PO QHS 08/07/23 01/15/24 History tablet multivitamin 1 tab PO DAILY 08/07/2301/03 History losartan 50 mg tablet 50 mg PO QDAY PRN BP 4 01/15/24 History warfarin 4 mg tablet 4 mg PO DAILY 01/14/2401/09 History atorvastatin 80 mg tablet 80 mg PO QHS CHOLESTEROL #90 tabs 01/24/24 Unknown Rx clopidogrel 75 mg tablet 75 mg PO DAILY 05/09/24 Unkn own History Allergy/AdvReac Type Severity Reaction Status Date / Time bee venom protein (honey bee) Allergy Hives Verified 05/09/24 21:28 amlodipine AdvReac Severe severe Verified 05/09/24 21:28 swelling in hands and feet ceftriaxone AdvReac Nausea/Vom/ Verified 05/09/24 21:28 Diarrhea spider venom AdvReac Other Verified 05/09/24 21:28 Family History Father Heart disease Diabetes CAD (coronary artery disease) History of coronary artery bypass surgery Cardiac pacemaker in situ Pure hypercholesterolemia Hypertension Mother Hypertension Surgical History History of back surgery History of esophagogastroduodenoscopy (EGD) History of coronary artery stent placement H/O umbilical hernia repair History of inguinal hernia repair, bilateral History of cystoscopy History of knee surgery History of total right knee replacement Social History household members: spouse Smoking Status: Former smoker how long ago did patient quit smokin alcohol intake: never substance use type: does not use caffeine: Yes Type: tea Number of servings: 2 ROS ROS Narrative Admission Review of Systems: CONSTITUTIONAL: No weight loss, fever, chills, + weakness or fatigue. HEENT: Eyes: No visual loss, blurred vision, double vision or yellow sclerae. Ears, Nose, Throat: No hearing loss, sneezing, congestion, runny nose or sore throat. SKIN: No rash or itching, lesions, wounds. CARDIOVASCULAR: + Chronic distal edema. No chest pain, chest pressure or chest discomfort, palpitations, orthopnea, syncopal events. RESPIRATORY: No shortness of breath, cough or sputum, wheezing, hemoptysis. GASTROINTESTINAL: + Decreased appetite. No nausea, vomiting or diarrhea, abdominal pain, melena, BRBPR. GENITOURINARY: No dysuria, frequency, urgency or retention. NEUROLOGICAL: No headache, dizziness, syncope, paralysis, ataxia, numbness or tingling in the extremities, focal weakness, change in bowel or bladder control, seizure. MUSCULOSKELETAL: + muscle, back pain, joint pain or stiffness. HEMATOLOGIC: + Chronic anemia, easy bleeding/bruising. LYMPHATICS: No enlarged nodes. No history of splenectomy. PSYCHIATRIC: No history of depression or anxiety. ENDOCRINOLOGIC: No reports of sweating, cold or heat intolerance. No polyuria or polydipsia. ALLERGIES: + History of hives. Vital Signs Vital Signs Vital Signs: 05/09/24 21:31 Temperature 98.3 F Temperature Source Oral Pulse Rate 53 L Respiratory Rate 18 Blood Pressure 142/65 H Blood Pressure Mean 90 Pulse Ox 97 Oxygen Delivery Method Room Air Weight Weight: 323 lb 13.745 oz Body Mass Index (BMI) 47.8 Physical Exam Narrative Physical Examination: General: Awake, alert, oriented x 3 and cooperative, laying in the ED bed, notes if he does not move he has no pain, fatigued appearing. Skin: Normal color, normal turgor, no icterus, no cyanosis except occasional stage ecchymoses, abrasion, bilateral lower extremity venous stasis skin changes. HEENT: AT/NC, EOMI, PERRLA, mildly dry MM, difficult to discern carotid bruit and JVD given thickened neck. Lungs: Diminished, greater bases, distant likely secondary to habitus, no evidence of distress, no rales, ronchi or wheezing. Heart: Mildly bradycardic with regular rhythm; no gallop, rub audible. Abdomen: Soft, morbidly obese, NTTP, distant BS, difficult to discern distention HSM given habitus. Extremities: No cyanosis, no clubbing, chronic distal not markedly pitting edema. Neurological: Patient awake, alert, oriented as noted, cognitive function intact; pupils equally reactive to light and accommodation, cranial nerves gross normal, moving all 4 extremities except extremely limited right lower extremity movement and movement in the bed secondary to pain elicited, strength accordingly severely globally decreased. Psychiatric: Affect appears flat, fatigued, no acute evidence of depressive or anxiety feelings. Results Lab / Micro Data 05/09/24 22:35 05/09/24 22:35 Labs: Laboratory Results - last 24 hr 05/09/24 22:35: WBC 8.4, RBC 3.75 L, Hgb 11.0 L, Hct 34.3 L, MCV 91.5, MCH 29.3, MCHC 32.1, RDW Std Deviation 51.7 H, RDW Coeff of Abdiel 15.5 H, Plt Count 289, MPV 9.8, Immature Gran % (Auto) 0.600, Neut % (Auto) 73.2 H, Lymph % (Auto) 9.5 L, M martha % (Auto) 13.9 H, Eos % (Auto) 2.3, Baso % (Auto) 0.5, Absolute Neuts (auto) 6.2, Absolute Lymphs (auto) 0.80 L, Nucleated RBC % 0, PT 39.7 H, INR 4.0 H*, Sodium 138, Potassium 4.7, Chloride 104, Carbon Dioxide 24.2, Anion Gap 11, BUN 22 H, Creatinine 1.79 H, Estim Creat Clear Calc 54.17, Est GFR (MDRD) Non-Af 40 L, BUN/Creatinine Ratio 12.0, Glucose 140 H, Calcium 9.0 Imaging Radiology Impression Pelvis X-Ray 05/09/24 22:14 IMPRESSION: Heterogeneous lytic appearance of the right inferior pubic ramus suspicious for lesion and pathological fracture, MRI versus CT of the pelvis may be obtained for further characterization. Reading Location: [facility] Femur X-Ray 05/09/24 22:50 IMPRESSION: No gross acute fracture. Heterogeneous lytic appearance of the right inferior pubic ramus, suspicious for a lesion and possibly pathological fracture, MRI versus CTs recommended for further characterization. Reading Location: [facility] Pelvis CT 05/10/24 00:00 IMPRESSION: Heterogeneous appearance of the right inferior pubic ramus with pathological fracture, concerning for underlying neoplasm. Please correlate clinically for any remote history of metastatic disease. One or more dose reduction techniques were used (e.g., Automated exposure control, adjustment of the mA and/or kV according to patient size, use of iterative reconstruction technique). Reading Location: [facility] Assessment & Plan Assessment/Plan (1) Pathological fracture of pelvis: PLAN: Plan The patient is a 73 y/o M w/ PMHx: LILI on CPAP q HS, Hx Osteomyelitis Spine (E. 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 rheumatoid arthritis, BPH, Chronic anemia, Former tobacco use, CKD stage III unclear subtype per GFR trending, PAF, CAD s/p PCI, HTN, HLD, Anxiety and Depression, GERD, Morbid obesity, Former tobacco use who presents to the [facility] ED on 05/10/24 with history of ongoing persistent right hip pain into the right buttock where it joins the thigh posteriorly with no lateral or anterior groin pain which has been ongoing and constant dull aching throb for at least a month however on day of presentation when he went to go to the bathroom to sit down he had sudden onset of severe sharp pain that was debilitating where he could not even get up or bear weight prompting EMS call. He denies any radicular pain or any paresthesias. #1. Intractable right hip pain with incidentally noted heterogeneous lytic lesion of the right inferior pubic rami suspicious for pathological fracture concerning for underlying neoplasm: Will admit to medical surgical floor, maintain on fall precautions, weightbearing as tolerated, will initiate oral/IV pain regimen as well as low-dose gabapentin, temporally hold Plavix and will hold Coumadin with INR trending in preparation for possible biopsy, oncology consulted, reviewed case with orthopedic surgery and they noted there was nothing further service to intervene upon therefore will defer consult for their service at this time. #2. Hx Osteomyelitis Spine: Patient reporting history of spinal infection/osteomyelitis with possibly E. Coli), maintained on chronic amoxicillin which will be continued, encourage continued outpatient follow-up with infectious disease as previously arranged. #3. CAD: Status post PCI, holding Coumadin with continued INR trending in preparation for biopsy, temporarily hold Plavix, metoprolol, losartan, Ranexa home regimen. If no plan for biopsy then we will resume these agents. #4. PAF: Continue patient home metoprolol regimen, hold Coumadin and trend INR in preparation for future biopsy. #5. Polyarthritis, suspected underlying rheumatoid arthritis: We will continue patient home hydroxychloroquine regimen, encourage follow-up outpatient with rheumatology as previously arranged. #6. Anxiety and depression: We will continue patient home citalopram as well as mirtazapine regimen. #7. Hypertension: Continue home regimen including losartan, isosorbide, metoprolol, PRN hydralazine. #8. Hyperlipidemia: Continue home statin therapy. #9. Chronic normocytic anemia: Admission hemoglobin 11, MCV 91.5, baseline hemoglobin more recently primarily 10-12, stable, continue to trend. #10. Chronic Kidney Disease Stage III, unclear subtype per GFR trend: Admission BUN/Cr 22/1.79, GFR 40, baseline renal function primarily 1.5-1.7, repeat BMP in AM. #11. Morbid Obesity: Weight loss and lifestyle changes encouraged. #12. Former tobacco use: Encourage continued tobacco cessation. #13. BPH with obstructive pathology: We will continue patient home Flomax regimen. #14. GERD: Continue patient home PPI. #15. LILI: CPAP nightly. #16. DVT prophylaxis: Will hold Coumadin and trend INR in preparation for potential biopsy. If no plan for biopsy discerned then will resume Coumadin. #17 CODE status: Patient HCPOA is his who is present and living will is currently in place. Discussed CODE status at length including difference between FULL code, DNR-CCA and DNR-CC status. Following discussions about the differences in these status, requested Full Code status. Advanced Care Planning Face to Face Time: 16 minutes. Charges/Coding Visit Charges Inpatient E&M: 07546 Init Hosp L3 Procedures Hospitalists Procedures: 41069 Advncd Care Plan 30 Min
[2024-05-10] MEDS: 0.9% Normal Saline (1000mL) 1,000 ML 100 ML IV (03:20)
[2024-05-10 06:45] LABS: Absolute Lymphocyte Count 1.14 X10^3/uL (0.83-4.51); Absolute Neutrophil Count 5.4 X10^3/uL (2.0-7.7); Basophil# 0.02 X10^3/uL; Basophil% 0.2 % (0-1); Eosinophil# 0.17 X10^3/uL; Eosinophils% 2.1 % (0-5); Hematocrit 31.2 % (40-54); Hemoglobin 9.8 g/dL (13.0-16.5); Lymphocyte # 1.14 X10^3/ul (0.83-4.51); Lymphocyte % 13.9 % (19-41); Mean Corp Hgb Conc 31.4 g/dL (32-36); Mean Corpuscular Hgb 28.9 pg (27.0-32.0); Mean Platelet Vol. 10.2 fl (6.2-12.0); Monocyte# 1.42 X10^3/uL; Monocyte% 17.4 % (0-10); NRBC Flagged by Analyzer 0 % (0-5); Neutrophil # 5.38 X10^3/uL (2.7-7.7); Neutrophil % 65.8 % (47-70); Platelet Count 279 K/mm3 (150-450); RBC Distribution Width CV 15.7 % (11.6-14.6); RBC Distribution Width SD 52.4 fl (35.1-43.9); Red Blood Count 3.39 M/mm3 (4.6-6.2); White Blood Count 8.2 K/mm3 (4.4-11.0)
[2024-05-10 06:52] LABS: International Normalized Ratio 4.6; Prothrombin Time (Protime)PT. 44.4 SECONDS (11.7-14.9)
[2024-05-10 07:12] LABS: ALB/GLOB Ratio 0.9 RATIO (0.9-2.4); AST(SGOT) 18 U/L (<=37); Alanine Aminotransfer ALT/SGPT 7 U/L (<=46); Albumin, Serum 3.1 g/dL (3.4-4.8); Alkaline Phosphatase 169 U/L (40-129); Anion Gap 10 (5-15); BUN 25 mg/dL (4-19); BUN/Creat Ratio 12.9 RATIO (10-20); Calcium,Total 8.9 mg/dL (7.6-11.0); Carbon Dioxide 24.1 mmol/L (21.0-32.0); Chloride 106 mmol/L (98-108); Creatinine, Serum 1.95 mg/dL (0.70-1.20); EST Glomerular Filtration Rate 36 (>60); Estimated Creatinine Clearance 49.09 ml/min (50-250); Globulin 3.5 g/dL (2.2-4.2); Glucose 104 mg/dL (70-99); Potassium 4.8 mmol/L (3.3-5.1); Protein, Total 6.6 g/dL (5.9-8.4); Sodium Level 140 mmol/L (133-145); Total Bilirubin 0.42 mg/dL (0.00-1.30)
--- NOTE | 2024-05-10 08:11 | PN.HOSP_ITS ---
Reason for Visit Reason for Visit: Diagnoses Pathological fracture, pelvis, initial encounter for fracture (05/10/24) Objective Data Objective Data Vital Signs: Vital Signs Temp Pulse Resp BP Pulse Ox O2 Del Method 97.7 F L 54 L 18 127/47 H 99 Room Air 05/10/24 03:17 05/10/24 03:17 05/10/24 03:17 05/10/24 03:17 05/10/24 03:17 05/10/24 03:17 Oxygen Delivery Method Room Air Weight: 316 lb 11.2 oz Body Mass Index (BMI) 46.9 Lab / Micro Data 05/10/24 05:30 05/10/24 05:30 Labs: Laboratory Results - last 24 hr 05/09/24 22:35: WBC 8.4, RBC 3.75 L, Hgb 11.0 L, Hct 34.3 L, MCV 91.5, MCH 29.3, MCHC 32.1, RDW Std Deviation 51.7 H, RDW Coeff of Abdiel 15.5 H, Plt Count 289, MPV 9.8, Immature Gran % (Auto) 0.600, Neut % (Auto) 73.2 H, Lymph % (Auto) 9.5 L, M martha % (Auto) 13.9 H, Eos % (Auto) 2.3, Baso % (Auto) 0.5, Absolute Neuts (auto) 6.2, Absolute Lymphs (auto) 0.80 L, Nucleated RBC % 0, PT 39.7 H, INR 4.0 H*, Sodium 138, Potassium 4.7, Chloride 104, Carbon Dioxide 24.2, Anion Gap 11, BUN 22 H, Creatinine 1.79 H, Estim Creat Clear Calc 54.17, Est GFR (MDRD) Non-Af 40 L, BUN/Creatinine Ratio 12.0, Glucose 140 H, Calcium 9.0 05/10/24 05:30: WBC 8.2, RBC 3.39 L, Hgb 9.8 L, Hct 31.2 L, MCV 92.0, MCH 28.9, MCHC 31.4 L, RDW Std Deviation 52.4 H, RDW Coeff of Abdiel 15.7 H, Plt Count 279, MPV 10.2, Immature Gran % (Auto) 0.600, Neut % (Auto) 65.8, Lymph % (Auto) 13.9 L, [place] % (Auto) 17.4 H, Eos % (Auto) 2.1, Baso % (Auto) 0.2, Absolute Neuts (auto) 5.4, Absolute Lymphs (auto) 1.14, Nucleated RBC % 0, PT 44.4 H, INR 4.6 H*, Sodium 140, Potassium 4.8, Chloride 106, Carbon Dioxide 24.1, Anion Gap 10, BUN 25 H, Creatinine 1.95 H, Estim Creat Clear Calc 49.09 L, Est GFR (MDRD) Non- Af 36 L, BUN/Creatinine Ratio 12.9, Glucose 104 H, Calcium 8.9, Total Bilirubin 0.42, AST 18, ALT 7, Alkaline Phosphatase 169 H, Total Protein 6.6, Albumin 3.1 L, Globulin 3.5, Albumin/Globulin Ratio 0.9 Radiography Diagnostic Testing: Radiology Impression Pelvis X-Ray 05/09/24 22:14 IMPRESSION: Heterogeneous lytic appearance of the right inferior pubic ramus suspicious for lesion and pathological fracture, MRI versus CT of the pelvis may be obtained for further characterization. Reading Location: [facility] Femur X-Ray 05/09/24 22:50 IMPRESSION: No gross acute fracture. Heterogeneous lytic appearance of the right inferior pubic ramus, suspicious for a lesion and possibly pathological fracture, MRI versus CTs recommended for further characterization. Reading Location: [facility] Pelvis CT 05/10/24 00:00 IMPRESSION: Heterogeneous appearance of the right inferior pubic ramus with pathological fracture, concerning for underlying neoplasm. Please correlate clinically for any remote history of metastatic disease. One or more dose reduction techniques were used (e.g., Automated exposure control, adjustment of the mA and/or kV according to patient size, use of iterative reconstruction technique). Reading Location: [facility] Physical Exam Narrative Seen and examined Patient has history of spinal osteomyelitis in the spine surgery about a year ago in [facility]. Complain of pain over right buttock, ischial point last 1 month got worse yesterday Physical exam: General: Alert, Oriented x3, Cooperative. Morbid obesity BMI 46.8 kg/m? HEENT: Atraumatic, PERRLA, EOMI, Normocephalic Oral: No Gingival or Mucosal Lesions/ Ulcerations Neck: Supple, No JVD, Negative Carotid Bruits Chest wall/Lungs: Air entry diminished in bilateral lung bases. No crepitation/rhonchi Cardiovascular: Regular rate, Regular Rhythm, Normal S1, Normal S2, No M/G/R Abdomen: Bowel Sounds Present, Soft, Non Tender, Non-Distended : No dysuria. No renal angle tenderness. No suprapubic tenderness. Extremities: No edema, Capillary Refill Less than 3 Seconds Skin: No rashes, No breakdown Musculoskeletal: Tenderness over right posterior hip/ischial tuberosity. No tenderness in groin or greater trochanter area of hip. ROM restricted over right hip Spine: No tenderness in thoracic or lumbar spine. Neurological: Cranial nerves II-XII grossly intact, DTR 2+/4. No acute focal neurological deficit. Psych/Mental Status: Flat affect Assessment & Plan Assessment/Plan (1) Pathological fracture of pelvis: PLAN: Plan The patient is a 73 y/o M was admitted with right buttock/posterior pain for about a month but got worse a day before admission. He could not get up from the toilet seat because of sharp disabling pain and could not bear weight therefore was admitted. No radiation pain to his foot, numbness or tingling. Denies bowel bladder dysfunction or saddle anesthesia. Partial total knee arthroplasty. denied fever or chills. #1. Intractable right posterior hip/buttock pain, nonradiating: Patient denies radiation pain, numbness or tingling. X-ray showed heterogenous lytic lesion in right posterior pubic rami suspicious of pathological fracture concerning for underlying neoplasm. [facility]. PT and OT. Pain control, low-dose gabapentin. Plavix and warfarin on hold. 05/10: Discussed with the CT finding of lytic lesion suspicious for neoplasm. Patient preferred going to [facility] Where he had the spine surgery. I called [facility] enrollment coordinator and patient accepted by the hospitalist Dr. Medina. Imaging uploaded on the PACS. When bed available patient can be transferred to [facility]. #2. 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 #3. CAD: Status post PCI, holding Coumadin with continued INR trending in preparation for biopsy, temporarily hold Plavix, metoprolol, losartan, Ranexa home regimen. If no plan for biopsy then we will resume these agents. #4. PAF: Continue patient home metoprolol regimen, hold Coumadin and trend INR in preparation for future biopsy. #5. Polyarthritis, suspected underlying rheumatoid arthritis: We will continue patient home hydroxychloroquine regimen, encourage follow-up outpatient with rheumatology as previously arranged. #6. Anxiety and depression: We will continue patient home citalopram as well as mirtazapine regimen. #7. Hypertension: Continue home regimen including losartan, isosorbide, metoprolol, PRN hydralazine. #8. Hyperlipidemia: Continue home statin therapy. #9. Chronic normocytic anemia: Admission hemoglobin 11, MCV 91.5, baseline hemoglobin more recently primarily 10-12, stable, continue to trend. #10. Chronic Kidney Disease Stage IIIb: Admission BUN/Cr 22/1.79, GFR 40, baseline renal function primarily 1.5-1.7, monitor kidney for #11. Morbid Obesity: Weight loss and lifestyle changes encouraged. #12. Former tobacco use: Encourage continued tobacco cessation. #13. BPH with obstructive pathology: We will continue patient home Flomax regimen. #14. GERD: Continue patient home PPI. #15. LILI: CPAP nightly. #16. DVT prophylaxis: hold Coumadin and trend INR in preparation for potential biopsy. #17 CODE status: Patient HCPOA is his who is present and living will is currently in place. Discussed CODE status at length including difference between FULL code, DNR-CCA and DNR-CC status. Following discussions about the differences in these status, requested Full Code status. Charges/Coding Visit Charges Inpatient E&M: 73479 Subs Hosp L2
[2024-05-10] MEDS: Hydroxychloroquine 200 MG Tablet PO ×2 (08:19→21:47)
[2024-05-10] MEDS: Pantoprazole Sodium 20 MG Tablet PO (08:20)
[2024-05-10] MEDS: Ranolazine 500 MG Tablet PO ×2 (08:20→21:47)
[2024-05-10] MEDS: Isosorbide Mononitrate 60 MG Tablet PO (08:20)
[2024-05-10] MEDS: Citalopram 20 MG Tablet PO (08:20)
--- NOTE | 2024-05-10 08:20 | CPS ---
Pt's family is bringing in his home CPAP today.
[2024-05-10] MEDS: Metoprolol(XL)Succ 50 MG Tablet PO ×2 (08:21→21:47)
[2024-05-10] MEDS: Senna/Docusate Sodium 1 Tablet 2 TABLET PO ×2 (08:21→21:47)
--- NOTE | 2024-05-10 08:33 | NURSING ---
spoke with Kanwal, she can not bring amoxicillin until this evening-will update pharmacy
[2024-05-10] MEDS: Gabapentin 100 MG Capsule PO ×3 (08:51→16:38)
[2024-05-10] MEDS: Ondansetron 4 MG/2 ML Vial IV (11:21)
[2024-05-10] MEDS: oxyCODONE 5 MG Tablet PO (13:07)
[2024-05-10] MEDS: Acetaminophen 325 MG Tablet 650 MG PO (13:08)
[2024-05-10] MEDS: AMOXICILLIN 875 MG TABLET PO ×2 (16:37→21:47)
[2024-05-10] MEDS: Tamsulosin HCl 0.4 MG Capsule PO (21:47)
[2024-05-10] MEDS: Atorvastatin Calcium 80 MG Tablet PO (21:47)
[2024-05-10] MEDS: Mirtazapine 30 MG Tablet PO (21:47)
[2024-05-11] VITALS (7 sets, daily range): BP systolic 102–124; BP diastolic 47–60; PULSE 51–66; RESP 18–20; TEMP 36.7–37; O2SAT 93–95; BMI 46.9
--- NOTE | 2024-05-11 07:51 | PN.HOSP_ITS ---
Reason for Visit Reason for Visit: Diagnoses Pathological fracture, pelvis, initial encounter for fracture (05/10/24) Objective Data Objective Data Vital Signs: Vital Signs Temp Pulse Resp BP Pulse Ox O2 Del Method 98.0 F 54 L 18 124/56 H 94 CPAP 05/11/24 04:21 05/11/24 04:21 05/11/24 04:21 05/11/24 04:21 05/11/24 04:21 05/11/24 04:21 Oxygen Delivery Method CPAP Weight: 316 lb 11.104 oz Body Mass Index (BMI) 46.9 Intake & Output: Intake and Output for Last 24 Hours 05/09/24 05/10/24 05/12/24 23:59 23:59 00:59 Intake Total 2750 / 3000 250 / 250 Output Total 1300 / 1660 460 / 460 Balance 1450 / 1340 -210 / -210 Lab / Micro Data 05/11/24 07:24 05/11/24 07:24 Labs: Laboratory Results - last 24 hr 05/10/24 05:30: PT 44.4 H, INR 4.6 H*, Sodium 140, Potassium 4.8, Chloride 106, Carbon Dioxide 24.1, Anion Gap 10, BUN 25 H, Creatinine 1.95 H, Estim Creat Clear Calc 49.09 L, Est GFR (MDRD) Non-Af 36 L, BUN/Creatinine Ratio 12.9, G lucose 104 H, Calcium 8.9, Total Bilirubin 0.42, AST 18, ALT 7, Alkaline Phosphatase 169 H, Total Protein 6.6, Albumin 3.1 L, Globulin 3.5, Albumin/Globulin Ratio 0.9 Physical Exam Narrative Seen and examined INR is high. No acute issues. Still bed not available at [facility]. Patient has history of spinal osteomyelitis in the spine surgery about a year ago in [facility]. Complain of pain over right buttock, ischial point last 1 month got worse yesterday Physical exam: General: Alert, Oriented x3, Cooperative. Morbid obesity BMI 46.8 kg/m? HEENT: Atraumatic, PERRLA, EOMI, Normocephalic Oral: No Gingival or Mucosal Lesions/ Ulcerations Neck: Supple, No JVD, Negative Carotid Bruits Chest wall/Lungs: Air entry diminished in bilateral lung bases. No crepitation/rhonchi Cardiovascular: Regular rate, Regular Rhythm, Normal S1, Normal S2, No M/G/R Abdomen: Bowel Sounds Present, Soft, Non Tender, Non-Distended : No dysuria. No renal angle tenderness. No suprapubic tenderness. Extremities: No edema, Capillary Refill Less than 3 Seconds Skin: No rashes, No breakdown Musculoskeletal: Tenderness over right posterior hip/ischial tuberosity. No tenderness in groin or greater trochanter area of hip. ROM restricted over right hip Spine: No tenderness in thoracic or lumbar spine. Neurological: Cranial nerves II-XII grossly intact, DTR 2+/4. No acute focal neurological deficit. Psych/Mental Status: Flat affect Assessment & Plan Assessment/Plan (1) Pathological fracture of pelvis: PLAN: Plan The patient is a 73 y/o M was admitted with right buttock/posterior pain for about a month but got worse a day before admission. He could not get up from the toilet seat because of sharp disabling pain and could not bear weight therefore was admitted. No radiation pain to his foot, numbness or tingling. Denies bowel bladder dysfunction or saddle anesthesia. Partial total knee arthroplasty. denied fever or chills. #1. Intractable right posterior hip/buttock pain, nonradiating: Patient denies radiation pain, numbness or tingling. X-ray showed heterogenous lytic lesion in right posterior pubic rami suspicious of pathological fracture concerning for underlying neoplasm. Patient admitted on MedSur floor. Fall precaution. PT and OT. Pain control, low-dose gabapentin. Plavix and warfarin on hold. 05/10: Discussed with the CT finding of lytic lesion suspicious for neoplasm. Patient preferred going to [facility] Where he had the spine surgery. I called [facility] early childhood services coordinator and patient accepted by the hospitalist Dr. Medina. Imaging uploaded on the PACS. When bed available patient can be transferred to [facility]. 05/11: Hip pain is controlled. No leukocytosis. Still pending bed. #2. 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 05/11 amoxicillin dose adjusted as per TEODORO. #3. CAD: Status post PCI, holding Coumadin with continued INR trending in preparation for biopsy, temporarily hold Plavix, metoprolol, losartan, Ranexa home regimen. If no plan for biopsy then we will resume these agents. #4. PAF: Continue patient home metoprolol regimen, hold Coumadin and trend INR in preparation for future biopsy. 05/11: INR high. Warfarin on hold #5. Polyarthritis, suspected underlying rheumatoid arthritis: We will continue patient home hydroxychloroquine regimen, encourage follow-up outpatient with rheumatology as previously arranged. #6. Anxiety and depression: We will continue patient home citalopram as well as mirtazapine regimen. #7. Hypertension: Continue home regimen including losartan, isosorbide, metoprolol, PRN hydralazine. #8. Hyperlipidemia: Continue home statin therapy. #9. Chronic normocytic anemia: Admission hemoglobin 11, MCV 91.5, baseline hemoglobin more recently primarily 10-12, stable, continue to trend. #10. Chronic Kidney Disease Stage IIIb: Admission BUN/Cr 22/1.79, GFR 40, baseline renal function primarily 1.5-1.7, monitor kidney for 05/11: TEODORO on CKD: Creatinine jumped up from 1.95-3.39. Losartan on hold. IV fluid ordered. Unclear reason. Attorney Law Clerk consulted. Urine test ordered. Kidney and bladder ultrasound ordered #11. Morbid Obesity: Weight loss and lifestyle changes encouraged. #12. Former tobacco use: Encourage continued tobacco cessation. #13. BPH with obstructive pathology: We will continue patient home Flomax regimen. #14. GERD: Continue patient home PPI. #15. LILI: CPAP nightly. #16. DVT prophylaxis: hold Coumadin and trend INR in preparation for potential biopsy. #17 CODE status: Patient VENITA is his who is present and living will is currently in place. Discussed CODE status at length including difference between FULL code, DNR-CCA and DNR-CC status. Following discussions about the differences in these status, requested Full Code status. Charges/Coding Visit Charges Inpatient E&M: 62529 Subs Hosp L2
[2024-05-11 08:00] LABS: Absolute Lymphocyte Count 0.96 X10^3/uL (0.83-4.51); Absolute Neutrophil Count 5.8 X10^3/uL (2.0-7.7); Basophil# 0.04 X10^3/uL; Basophil% 0.5 % (0-1); Eosinophils% 2.5 % (0-5); Hematocrit 32.5 % (40-54); Hemoglobin 10.2 g/dL (13.0-16.5); Lymphocyte # 0.96 X10^3/ul (0.83-4.51); Lymphocyte % 11.8 % (19-41); Mean Corp Hgb Conc 31.4 g/dL (32-36); Mean Corpuscular Hgb 29.3 pg (27.0-32.0); Mean Corpuscular Volume 93.4 fL (80-94); Monocyte# 1.11 X10^3/uL; Monocyte% 13.6 % (0-10); NRBC Flagged by Analyzer 0 % (0-5); Neutrophil # 5.78 X10^3/uL (2.7-7.7); Platelet Count 288 K/mm3 (150-450); RBC Distribution Width CV 15.9 % (11.6-14.6); RBC Distribution Width SD 54.9 fl (35.1-43.9); Red Blood Count 3.48 M/mm3 (4.6-6.2); White Blood Count 8.1 K/mm3 (4.4-11.0)
[2024-05-11 08:37] LABS: International Normalized Ratio 4.7; Prothrombin Time (Protime)PT. 45.5 SECONDS (11.7-14.9)
[2024-05-11] MEDS: Gabapentin 100 MG Capsule PO ×3 (08:46→16:40)
[2024-05-11] MEDS: Losartan Potassium 25 MG Tablet PO (08:46)
[2024-05-11] MEDS: Senna/Docusate Sodium 1 Tablet 2 TABLET PO ×2 (08:47→21:43)
[2024-05-11] MEDS: Hydroxychloroquine 200 MG Tablet PO (08:47)
[2024-05-11] MEDS: Ranolazine 500 MG Tablet PO ×2 (08:47→21:43)
[2024-05-11] MEDS: Pantoprazole Sodium 20 MG Tablet PO (08:47)
[2024-05-11] MEDS: Metoprolol(XL)Succ 50 MG Tablet PO ×2 (08:47→21:43)
[2024-05-11] MEDS: Citalopram 20 MG Tablet PO (08:48)
[2024-05-11] MEDS: AMOXICILLIN 875 MG TABLET PO (08:50)
[2024-05-11 09:39] LABS: Anion Gap 13 (5-15); BUN 37 mg/dL (4-19); Calcium,Total 8.5 mg/dL (7.6-11.0); Carbon Dioxide 20.7 mmol/L (21.0-32.0); Chloride 103 mmol/L (98-108); Creatinine, Serum 3.39 mg/dL (0.70-1.20); EST Glomerular Filtration Rate 19 (>60); Estimated Creatinine Clearance 28.24 ml/min (50-250); Glucose 91 mg/dL (70-99); Potassium 4.8 mmol/L (3.3-5.1); Sodium Level 136 mmol/L (133-145)
[2024-05-11] MEDS: 0.9% Normal Saline (1000mL) 1,000 ML 100 ML IV (16:40)
[2024-05-11] MEDS: 0.9% Saline Lock 10 ML Syringe IV ×2 (16:40→17:26)
[2024-05-11 17:14] LABS: Mucous, Urine 0 SEEN /hpf (<or=2+); Squamous Epithelial Cells - UA 0 SEEN /hpf (0-5)
[2024-05-11 17:25] LABS: Color, Urine Yellow (Yellow); Glucose, Dipstick Normal (Normal); Ketone-Dipstick Negative (Negative); Leukocyte Esterase-Dipstick 500 /ul (Negative); Nitrite-Dipstick Positive (Negative); Occult Blood-Urine 250 /ul (Negative); Protein-Dipstick 100 mg/dl (Negative); Specific Gravity, Urine 1.025 (1.002-1.030); Urine Clarity Cloudy (Clear); Urine Urobilinogen 1 mg/dl (Normal)
[2024-05-11 17:50] LABS: Osmolality, Urine 391 mOsm/KG
[2024-05-11 17:55] LABS: Bacteria 2+ /hpf (None Seen); Red Blood Cells-Urine 10-25 SEEN /hpf (0-5); Urine Bilirubin Dipstick 1 mg/dL (Negative); White Blood Cells >100 SEEN /hpf (0-5)
[2024-05-11 18:11] LABS: Protein:Creat Ratio 345 mg/g CRE (0-200)
[2024-05-11 18:29] LABS: Urine Chloride < 20 mmol/L (Not Establ.); Urine Potassium 56.9 mmol/L (Not Establ.); Urine Sodium 20 mmol/L (Not Establ.)
[2024-05-11] MEDS: Tamsulosin HCl 0.4 MG Capsule PO (21:42)
[2024-05-11] MEDS: AMOXICILLIN 875 MG TABLET 500 MG PO (21:42)
[2024-05-11] MEDS: Mirtazapine 15 MG Tablet PO (21:43)
[2024-05-12] VITALS (9 sets, daily range): BP systolic 90–134; BP diastolic 50–90; PULSE 45–57; RESP 17–19; TEMP 36.5–37.1; O2SAT 95–99; BMI 47.9
[2024-05-12] MEDS: 0.9% Normal Saline (1000mL) 1,000 ML 100 ML IV (03:34)
--- NOTE | 2024-05-12 07:00 | US_ITS ---
EXAM: US Retroperitoneal Limited, Renal CLINICAL INDICATION: TECHNIQUE: Real-time limited ultrasound of the retroperitoneum with image documentation. COMPARISON: No relevant prior studies available. FINDINGS: RIGHT KIDNEY: Unremarkable. No stones. No hydronephrosis. The right kidney measures 9.8 x 5.4 x 5.2 cm. LEFT KIDNEY: Unremarkable. No stones. No hydronephrosis. The left kidney measures 8.8 x 3.4 x 4.2 cm. BLADDER: Urinary Adams catheter decompresses the urinary bladder. US/Kidney and Bladder IMPRESSION: No acute findings in the retroperitoneum. Reading [facility]
[2024-05-12 07:25] LABS: Absolute Lymphocyte Count 0.94 X10^3/uL (0.83-4.51); Absolute Neutrophil Count 7.2 X10^3/uL (2.0-7.7); Basophil# 0.03 X10^3/uL; Basophil% 0.3 % (0-1); Eosinophil# 0.21 X10^3/uL; Eosinophils% 2.1 % (0-5); Hematocrit 32.9 % (40-54); Hemoglobin 10.3 g/dL (13.0-16.5); Lymphocyte # 0.94 X10^3/ul (0.83-4.51); Lymphocyte % 9.6 % (19-41); Mean Corp Hgb Conc 31.3 g/dL (32-36); Mean Corpuscular Hgb 29.2 pg (27.0-32.0); Mean Corpuscular Volume 93.2 fL (80-94); Mean Platelet Vol. 10.1 fl (6.2-12.0); Monocyte# 1.36 X10^3/uL; Monocyte% 13.8 % (0-10); NRBC Flagged by Analyzer 0 % (0-5); Neutrophil # 7.24 X10^3/uL (2.7-7.7); Neutrophil % 73.6 % (47-70); Platelet Count 255 K/mm3 (150-450); RBC Distribution Width CV 15.9 % (11.6-14.6); RBC Distribution Width SD 53.7 fl (35.1-43.9); Red Blood Count 3.53 M/mm3 (4.6-6.2); White Blood Count 9.8 K/mm3 (4.4-11.0)
[2024-05-12 08:08] LABS: Anion Gap 12 (5-15); BUN 37 mg/dL (4-19); BUN/Creat Ratio 13.2 RATIO (10-20); Calcium,Total 8.7 mg/dL (7.6-11.0); Carbon Dioxide 16.7 mmol/L (21.0-32.0); Chloride 108 mmol/L (98-108); Creatinine, Serum 2.82 mg/dL (0.70-1.20); EST Glomerular Filtration Rate 23 (>60); Estimated Creatinine Clearance 34.38 ml/min (50-250); Glucose 96 mg/dL (70-99); Potassium 4.8 mmol/L (3.3-5.1); Sodium Level 136 mmol/L (133-145)
[2024-05-12 08:32] LABS: International Normalized Ratio 3.8
[2024-05-12] MEDS: Pantoprazole Sodium 20 MG Tablet PO (12:30)
[2024-05-12] MEDS: Senna/Docusate Sodium 1 Tablet 2 TABLET PO ×2 (12:30→21:58)
[2024-05-12] MEDS: oxyCODONE 5 MG Tablet PO (12:30)
[2024-05-12] MEDS: Citalopram 20 MG Tablet PO (12:30)
[2024-05-12] MEDS: Ranolazine 500 MG Tablet PO ×2 (12:30→21:58)
[2024-05-12] MEDS: Gabapentin 100 MG Capsule PO ×2 (13:59→18:39)
--- NOTE | 2024-05-12 19:10 | PCM.CONS.R ---
Assessment & Plan Assessment/Plan (1) TEODORO (acute kidney injury): PLAN: baseline cr is 1.6 or so. renal US is ok UA with some cells ? ATN cr is better today pending transfer to [facility] HPI Consult Data Date of Consult: 05/12/24 HPI Narrative Reason for Consultation: TEODORO HPI Narrative: GUSTAVO HARTMAN, is a 73 M who presents To the hospital with suspected pathologic fracture. Nephrology on consultation in view of acute renal failure. He has known history of CKD stage IIIb, baseline creatinine around 1.6 or so. Pending transfer to [facility]. Creatinine slightly better today. Denies any complaints. Urine output okay. 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 Wears glasses Ambulates with cane Gout Arthritis Former smoker Pure hypercholesterolemia Paroxysmal atrial fibrillation Polyarthritis Atherosclerotic heart disease of [place] coronary artery without angina pectoris History of left heart catheterization (LHC) (~07/29/19) Atrial fibrillation Essential hypertension CKD (chronic kidney disease), stage III Anxiety and depression Viral syndrome GERD (gastroesophageal reflux disease) Morbid obesity Depression Home Medications ?Medication ?Instructions ?Recorded ?Last Taken ?Type citalopram 20 mg tablet 20 mg PO DAILY MOOD 09/21/14 02/16/23 History tamsulosin 0.4 mg capsule 0.4 mg PO QHS bph 05/18/19 02/16/23 History hydroxychloroquine 200 mg tablet 200 mg PO BID arthritis 04/25/21 01/15/24 History isosorbide mononitrate 60 mg 60 mg PO BID heart 02/17/23 01/15/24 History tablet,extended release 24 hr amoxicillin 875 mg tablet 875 mg PO Q12H OSTEOMYELITIS 05/09/23 01/15/24 History melatonin 3 mg tablet 3 mg PO QHS PRN sleep 05/09/23 01/15/24 History ranolazine 500 mg tablet,extended 500 mg PO BID HEART DISEASE 05/09/23 06/18/23 04:10 History release,12 hr esomeprazole magnesium 20 mg 20 mg PO DAILY 08/07/23 01/15/24 History capsule,delayed release (Nexium) metoprolol succinate 50 mg 50 mg PO BID BLOOD PRESSURE 08/07/23 01/15/24 History tablet,extended release 24 hr mirtazapine 30 mg disintegrating 30 mg PO QHS 08/07/23 01/15/24 History tablet multivitamin 1 tab PO DAILY 08/07/23 01/15/24 History losartan 50 mg tablet 50 mg PO DAILY BP 11/21/23 01/15/24 History warfarin 4 mg tablet 4 mg PO DAILY 01/14/24 01/10/24 History atorvastatin 80 mg tablet 80 mg PO QHS CHOLESTEROL #90 tabs 01/24/24 Unknown Rx clopidogrel 75 mg tablet 75 mg PO DAILY 05/09/24 Unknown History Allergy/AdvReac Type Severity Reaction Status Date / Time bee venom protein (honey bee) Allergy Hives Verified 05/09/24 21:28 amlodipine AdvReac Severe severe Verified 05/09/24 21:28 swelling in hands and feet ceftriaxone AdvReac Nausea/Vom/ Verified 05/09/24 21:28 Diarrhea spider venom AdvReac Other Verified 05/09/24 21:28 Family History Father Heart disease Diabetes CAD (coronary artery disease) History of coronary artery bypass surgery Cardiac pacemaker in situ Pure hypercholesterolemia Hypertension Mother Hypertension Surgical History History of back surgery History of esophagogastroduodenoscopy (EGD) History of coronary artery stent placement H/O umbilical hernia repair History of inguinal hernia repair, bilateral History of cystoscopy History of knee surgery History of total right knee replacement Social History household members: spouse Smoking Status: Former smoker how long ago did patient quit smokin alcohol intake: never substance use type: does not use caffeine: Yes Type: tea Number of servings: 2 ROS ROS Narrative negative except above Physical Exam Narrative Alert awake oriented x 3 no obvious distress no pallor no icterus no JVD s1s2 no murmurs lungs clear abdomen soft no organomegaly no edema Lab / Micro Data 05/12/24 06:54 05/12/24 06:54 Labs: Laboratory Results - last 24 hr 05/12/24 06:54: WBC 9.8, RBC 3.53 L, Hgb 10.3 L, Hct 32.9 L, MCV 93.2, MCH 29.2, MCHC 31.3 L, RDW Std Deviation 53.7 H, RDW Coeff of Abdiel 15.9 H, Plt Count 255, MPV 10.1, Immature Gran % (Auto) 0.600, Neut % (Auto) 73.6 H, Lymph % (Auto) 9.6 L, [place] % (Auto) 13.8 H, Eos % (Auto) 2.1, Baso % (Auto) 0.3, Absolute Neuts (auto) 7.2, Absolute Lymphs (auto) 0.94, Nucleated RBC % 0, PT 38.0 H, INR 3.8, Sodium 136, Potassium 4.8, Chloride 108, Carbon Dioxide 16.7 L, Anion Gap 12, BUN 37 H, Creatinine 2.82 H, Estim Creat Clear Calc 34.38 L, Est GFR (MDRD) Non-Af 23 L, BUN/Creatinine Ratio 13.2, Glucose 96, Calcium 8.7 Micro: Microbiology 05/11/24 16:40 Urine Catheter - Adams Urine Culture - Preliminary GNR lactose piercing specialist Imaging Radiology Impression Renal Ultrasound 05/12/24 07:00 IMPRESSION: No acute findings in the retroperitoneum. Reading Location: [facility]
--- NOTE | 2024-05-12 19:27 | PCM.PN.HOSP ---
Reason for Visit Reason for Visit: Diagnoses Pathological fracture, pelvis, initial encounter for fracture (05/10/24) Acute kidney failure, unspecified (05/10/24) Subjective Subjective Patient was seen and examined today, he states he does have pain in his pelvic area if he tries to move. We are currently awaiting a bed assignment at [facility]. Objective Data Objective Data Vital Signs: Vital Signs Temp Pulse Resp BP Pulse Ox O2 Del Method 98.1 F 57 L 19 H 125/50 H 95 Room Air 05/12/24 18:40 05/12/24 18:40 05/12/24 18:40 05/12/24 18:40 05/12/24 18:40 05/12/24 18:40 Oxygen Delivery Method Room Air Weight: 146.9 kg Body Mass Index (BMI) 47.9 Intake & Output: Intake and Output for Last 24 Hours 05/10/24 05/12/24 05/12/24 23:59 00:59 23:59 Intake Total 2750 / 3000 371.67 / 371.67 2808.33 / 2808.33 Output Total 1300 / 1660 1260 / 1260 2075 / 2075 Balance 1450 / 1340 -888.33 / -888.33 733.33 / 733.33 Lab / Micro Data 05/12/24 06:54 05/12/24 06:54 Labs: Laboratory Results - last 24 hr 05/12/24 06:54: WBC 9.8, RBC 3.53 L, Hgb 10.3 L, Hct 32.9 L, MCV 93.2, MCH 29.2, MCHC 31.3 L, RDW Std Deviation 53.7 H, RDW Coeff of Abdiel 15.9 H, Plt Count 255, MPV 10.1, Immature Gran % (Auto) 0.600, Neut % (Auto) 73.6 H, Lymph % (Auto) 9.6 L, [place] % (Auto) 13.8 H, Eos % (Auto) 2.1, Baso % (Auto) 0.3, Absolute Neuts (auto) 7.2, Absolute Lymphs (auto) 0.94, Nucleated RBC % 0, PT 38.0 H, INR 3.8, Sodium 136, Potassium 4.8, Chloride 108, Carbon Dioxide 16.7 L, Anion Gap 12, BUN 37 H, Creatinine 2.82 H, Estim Creat Clear Calc 34.38 L, Est GFR (MDRD) Non-Af 23 L, BUN/Creatinine Ratio 13.2, Glucose 96, Calcium 8.7 Micro: Microbiology 05/11/24 16:40 Urine Catheter - Adams Urine Culture - Preliminary GNR lactose coating inspector Radiography Diagnostic Testing: Radiology Impression Renal Ultrasound 05/12/24 07:00 IMPRESSION: No acute findings in the retroperitoneum. Reading Location: [facility] Physical Exam Const alert, oriented x3 and no apparent distress Constitutional Narrative: Patient has class III obesity General Appearance: cooperative, well kempt and well developed Orientation / Consciousness: awake, oriented to person, oriented to place and oriented to time HEENT normocephalic, head/scalp atraumatic and moist oral mucous membranes Eyes PERRL, EOMs intact bilaterally and conjunctivae normal Neck supple, no JVD, thyroid normal and no carotid bruits General: trachea midline Resp normal respiratory effort, no retractions, no use of accessory muscles and clear to auscultation bilaterally Auscultation: Negative for rales, rhonchi or wheezes Cardio regular rate, regular rhythm, S1 normal heart sound, S2 normal heart sound, no murmurs, no rub and no gallops GI normal to inspection, nondistended, normoactive bowel sounds, soft to palpation, non-tender and non-distended Extremity no clubbing, cyanosis or edema Skin no rashes or lesions noted General Skin Exam: no breakdown Neuro oriented x3, CN's II-XII intact bilaterally, no focal motor deficits and no sensory deficits noted Sensorium / Orientation: awake and alert Speech: speech normal Psych affect normal Assessment & Plan Assessment/Plan (1) Pathological fracture of pelvis: PLAN: Plan 1. Intractable right hip and buttock pain secondary to pathological fracture of the right inferior pubic rami-patient remains on low-dose gabapentin, IV morphine, and oxycodone, we are currently waiting for an open bed at [facility] #2 coronary artery disease-patient's anticoagulant is being held due to the need for an expected biopsy of the bone area, patient's Plavix is being held in addition to his Coumadin #3 paroxysmal [id number] continues on rate limiting medication, Coumadin is being held due to possibility of a bone biopsy being needed. #4 essential hypertension-patient will continue on losartan and metoprolol, he is being given as needed hydralazine #5 hyperlipidemia-patient continues on his home statin #6 chronic anxiety and depression-patient will continue on citalopram and Remeron #7 class III obesity-complicates care, management, recovery, and prognosis #8 TEODORO on a backdrop of chronic kidney disease stage IIIb-nephrology is participating in his care, patient's creatinine today was 2.82, recheck labs tomorrow, I will give the patient fluids at 75 mL an hour #9 osteomyelitis of the spine-patient is on chronic suppressive therapy with amoxicillin Total clinical time spent by myself addressing the patient's medical issues, reviewing all of his data, and collaborating with patient's care team: 35 minutes Charges/Coding Visit Charges Inpatient E&M: 67477 Subs Hosp L2
[2024-05-12] MEDS: Atorvastatin Calcium 80 MG Tablet PO (21:56)
[2024-05-12] MEDS: AMOXICILLIN 500 MG CAPSULE PO (21:57)
[2024-05-12] MEDS: Tamsulosin HCl 0.4 MG Capsule PO (21:57)
[2024-05-12] MEDS: 0.9% Normal Saline (1000mL) 1,000 ML 75 ML IV (21:58)
[2024-05-12] MEDS: Mirtazapine 15 MG Tablet PO (21:58)
[2024-05-13 05:15] VITALS: BMI 47.8
[2024-05-13 05:17] VITALS: BP 124/54; PULSE 66; RESP 18; TEMP 36.6; O2SAT 96
[2024-05-13 07:04] LABS: International Normalized Ratio 2.6; Prothrombin Time (Protime)PT. 28.4 SECONDS (11.7-14.9)
[2024-05-13 08:05] LABS: Anion Gap 11 (5-15); BUN 32 mg/dL (4-19); BUN/Creat Ratio 14.5 RATIO (10-20); Calcium,Total 8.8 mg/dL (7.6-11.0); Carbon Dioxide 17.6 mmol/L (21.0-32.0); Chloride 109 mmol/L (98-108); Creatinine, Serum 2.23 mg/dL (0.70-1.20); EST Glomerular Filtration Rate 31 (>60); Estimated Creatinine Clearance 43.41 ml/min (50-250); Glucose 98 mg/dL (70-99); Potassium 4.4 mmol/L (3.3-5.1); Sodium Level 138 mmol/L (133-145)
[2024-05-13 09:09] VITALS: BP 137/51; PULSE 56
[2024-05-13] MEDS: Metoprolol(XL)Succ 50 MG Tablet PO ×2 (09:09→20:39)
[2024-05-13] MEDS: Pantoprazole Sodium 20 MG Tablet PO (09:10)
[2024-05-13] MEDS: Senna/Docusate Sodium 1 Tablet 2 TABLET PO (09:10)
[2024-05-13] MEDS: Ranolazine 500 MG Tablet PO ×2 (09:10→20:37)
[2024-05-13] MEDS: Isosorbide Mononitrate 30 MG Tablet PO (09:11)
[2024-05-13] MEDS: Citalopram 20 MG Tablet PO (09:11)
[2024-05-13] MEDS: Gabapentin 100 MG Capsule PO ×3 (09:11→16:41)
[2024-05-13] MEDS: AMOXICILLIN 500 MG CAPSULE PO ×2 (09:11→20:38)
[2024-05-13 09:15] VITALS: BP 137/51; PULSE 56; RESP 17; TEMP 36.8; O2SAT 95
--- NOTE | 2024-05-13 10:51 | PN.RENAL_ITS ---
Subjective Subjective Patient resting in bed, at bedside. No complaints. Objective Data Objective Data Vital Signs: Vital Signs Temp Pulse Resp BP Pulse Ox O2 Del Method 98.2 F 56 L 17 137/51 H 95 Room Air 05/13/24 09:15 05/13/24 09:15 05/13/24 09:15 05/13/24 09:15 05/13/24 09:15 05/13/24 09:15 Oxygen Delivery Method Room Air Weight: 146.5 kg Body Mass Index (BMI) 47.8 Intake & Output: Intake and Output for Last 24 Hours 05/12/24 05/12/24 05/13/24 00:59 23:59 23:59 Intake Total 371.67 / 371.67 2808.33 / 2808.33 900 / 900 Output Total 1260 / 1260 2475 / 2475 375 / 375 Balance -888.33 / -888.33 333.33 / 333.33 525 / 525 Lab / Micro Data 05/12/24 06:54 05/13/24 06:37 Labs: Laboratory Results - last 24 hr 05/13/24 06:37: PT 28.4 H, INR 2.6, Sodium 138, Potassium 4.4, Chloride 109 H, C arbon Dioxide 17.6 L, Anion Gap 11, BUN 32 H, Creatinine 2.23 H, Estim Creat Clear Calc 43.41 L, Est GFR (MDRD) Non-Af 31 L, BUN/Creatinine Ratio 14.5, Glucose 98, Calcium 8.8 Micro: Microbiology 05/11/24 16:40 Urine Catheter - Adams Urine Culture - Final Klebsiella pneumoniae sp pneum Radiography Diagnostic Testing: Radiology Impression Renal Ultrasound 05/12/24 07:00 IMPRESSION: No acute findings in the retroperitoneum. Reading Location: [facility] Physical Exam Narrative Alert awake oriented x 3 no obvious distress s1s2 no murmurs lungs clear abdomen soft no edema Assessment & Plan Assessment/Plan (1) TEODORO (acute kidney injury): PLAN: - TEODORO superimposed on CKD stage III; baseline SCr ~1.6mg/dL. TEODORO possibly from ATN. Creatinine peaked 3.3mg/dL on May 11 and today serum creatinine is 2.23. With IVF and holding losartan SCr improved. Patient has good urine output. Renal ultrasound no hydronephrosis. Bps acceptable. -Pathological right hip fracture; pending transfer to [facility]
[2024-05-13] MEDS: oxyCODONE 5 MG Tablet PO ×2 (11:29→20:36)
[2024-05-13] MEDS: 0.9% Normal Saline (1000mL) 1,000 ML 75 ML IV (11:30)
[2024-05-13 15:41] VITALS: BP 131/47; PULSE 52; RESP 16; TEMP 36.8; O2SAT 95
--- NOTE | 2024-05-13 20:08 | PCM.PN.HOSP ---
Reason for Visit Reason for Visit: Diagnoses Pathological fracture, pelvis, initial encounter for fracture (05/10/24) Acute kidney failure, unspecified (05/10/24) Subjective Subjective Patient was seen and examined today, his was in the room at the time my examination. The waiting list for [facility] is a very long waiting list and I discussed this with the patient and his , he has agreed to consider going to [facility] in [place], I called them and was able to get an acceptance from them, the waiting list is much shorter and I expect him to be transferred either this evening or tomorrow. Patient's creatinine is improved today Objective Data Objective Data Vital Signs: Vital Signs Temp Pulse Resp BP Pulse Ox O2 Del Method 98.2 F 52 L 16 131/47 H 95 Room Air 05/13/24 15:41 05/13/24 15:41 05/13/24 15:41 05/13/24 15:41 05/13/24 15:41 05/13/24 15:41 Oxygen Delivery Method Room Air Weight: 146.5 kg Body Mass Index (BMI) 47.8 Intake & Output: Intake and Output for Last 24 Hours 05/12/24 05/12/24 05/13/24 00:59 23:59 23:59 Intake Total 371.67 / 371.67 2808.33 / 2808.33 1900 / 1900 Output Total 1260 / 1260 2475 / 2475 725 / 725 Balance -888.33 / -888.33 333.33 / 333.33 1175 / 1175 Lab / Micro Data 05/12/24 06:54 05/13/24 06:37 Labs: Laboratory Results - last 24 hr 05/13/24 06:37: PT 28.4 H, INR 2.6, Sodium 138, Potassium 4.4, Chloride 109 H, Carbon Dioxide 17.6 L, Anion Gap 11, BUN 32 H, Creatinine 2.23 H, Estim Creat Clear Calc 43.41 L, Est GFR (MDRD) Non-Af 31 L, BUN/Creatinine Ratio 14.5, Glucose 98, Calcium 8.8 Micro: Microbiology 05/11/24 16:40 Urine Catheter - Adams Urine Culture - Final Klebsiella pneumoniae sp pneum Physical Exam Narrative alert, oriented x3 and no apparent distress Constitutional Narrative: Patient has class III obesity General Appearance: cooperative, well kempt and well developed Orientation / Consciousness: awake, oriented to person, oriented to place and oriented to time HEENT normocephalic, head/scalp atraumatic and moist oral mucous membranes Eyes PERRL, EOMs intact bilaterally and conjunctivae normal Neck supple, no JVD, thyroid normal and no carotid bruits General: trachea midline Resp normal respiratory effort, no retractions, no use of accessory muscles and clear to auscultation bilaterally Auscultation: Negative for rales, rhonchi or wheezes Cardio regular rate, regular rhythm, S1 normal heart sound, S2 normal heart sound, no murmurs, no rub and no gallops GI normal to inspection, nondistended, normoactive bowel sounds, soft to palpation, non-tender and non-distended Extremity no clubbing, cyanosis or edema Skin no rashes or lesions noted General Skin Exam: no breakdown Neuro oriented x3, CN's II-XII intact bilaterally, no focal motor deficits and no sensory deficits noted Sensorium / Orientation: awake and alert Speech: speech normal Psych affect normal Assessment & Plan Assessment/Plan (1) Closed fracture of right inferior pubic ramus: (2) Pathological fracture of pelvis: PLAN: Plan 1. Intractable right hip and buttock pain secondary to pathological fracture of the right inferior pubic rami-patient remains on low-dose gabapentin, IV morphine, and oxycodone, we are currently waiting for an open bed at [facility] in [facility] #2 coronary artery disease-patient's anticoagulant is being held due to the need for an expected biopsy of the bone area, patient's Plavix is being held in addition to his Coumadin #3 paroxysmal [id number] continues on rate limiting medication, Coumadin is being held due to possibility of a bone biopsy being needed. #4 essential hypertension-patient will continue on losartan and metoprolol, he is being given as needed hydralazine #5 hyperlipidemia-patient continues on his home statin #6 chronic anxiety and depression-patient will continue on citalopram and Remeron #7 class III obesity-complicates care, management, recovery, and prognosis #8 TEODORO on a backdrop of chronic kidney disease stage IIIb-nephrology is participating in his care, the transferring hospitalist at [facility] and can has requested the patient remain on IV fluids, I have written for 1 more 1000 cc fluid administration. #9 osteomyelitis of the spine-patient is on chronic suppressive therapy with amoxicillin Total clinical time spent by myself addressing the patient's medical issues, reviewing all of his data, and collaborating with patient's care team: 35 minutes Charges/Coding Visit Charges Inpatient E&M: 24144 Subs Hosp L2
[2024-05-13] MEDS: Mirtazapine 15 MG Tablet PO (20:37)
[2024-05-13] MEDS: Atorvastatin Calcium 80 MG Tablet PO (20:37)
[2024-05-13] MEDS: Tamsulosin HCl 0.4 MG Capsule PO (20:38)
[2024-05-13 20:39] VITALS: PULSE 51
[2024-05-13 20:49] VITALS: BP 131/46; PULSE 51; RESP 16; TEMP 36.9; O2SAT 93
[2024-05-14] MEDS: 0.9% Normal Saline (1000mL) 1,000 ML 75 ML IV (00:26)
[2024-05-14 04:01] VITALS: BMI 47.9
[2024-05-14 05:56] VITALS: BP 152/46; PULSE 55; RESP 16; TEMP 37; O2SAT 97
[2024-05-14] MEDS: oxyCODONE 5 MG Tablet PO (06:00)
--- NOTE | 2024-05-14 06:49 | NURSING ---
report called to nurse Kizzy @ [facility] [phone] pt going to room 275 bed2
--- NOTE | 2024-05-14 08:43 | PCM.DC.SUM ---
Providers Date of Admission: 05/10/24 Date of Discharge: 05/14/24 Primary Care Physician: Dr. Cornell Gunter MD Consultations 05/10/24 03:08 Consult: Oncology/Hematology Routine Consulting Provider: Adriana Vera Reason for Consult: R inferior pubic rami suspicious for pathological Fx, concern neoplasm EMERGENT Consult: No Notified: Yes Date Notified: 05/10/24 Time Notified: 10:46 Method of Notification: Text 05/11/24 16:21 Consult: Nephrology Routine Consulting Provider: Mojgan Osorio Reason for Consult: TEODORO on CKD3 EMERGENT Consult: No Notified: Yes Date Notified: 05/11/24 Time Notified: 16:21 Method of Notification: Text Reason For Visit: INTRACTABLE R HIP PAIN, PATHOLOGICAL R INFERIOR Diagnosis Discharge Diagnosis (1) Closed fracture of right inferior pubic ramus: Status: Acute Code(s): S32.591A - Other specified fracture of right pubis, initial encounter for closed fracture (2) Pathological fracture of pelvis: Status: Acute Code(s): M84.454A - Pathological fracture, pelvis, initial encounter for fracture Plan 1. Intractable right hip and buttock pain secondary to pathological fracture of the right inferior pubic rami-patient remains on low-dose gabapentin, IV morphine, and oxycodone, we are currently waiting for an open bed at [facility] in [facility] #2 coronary artery disease-patient's anticoagulant is being held due to the need for an expected biopsy of the bone area, patient's Plavix is being held in addition to his Coumadin #3 paroxysmal [id number]-[id number] continues on rate limiting medication, Coumadin is being held due to possibility of a bone biopsy being needed. #4 essential hypertension-patient will continue on losartan and metoprolol, he is being given as needed hydralazine #5 hyperlipidemia-patient continues on his home statin #6 chronic anxiety and depression-patient will continue on citalopram and Remeron #7 class III obesity-complicates care, management, recovery, and prognosis #8 TEODORO on a backdrop of chronic kidney disease stage IIIb-nephrology is participating in his care, the transferring hospitalist at [facility] and can has requested the patient remain on IV fluids, I have written for 1 more 1000 cc fluid administration. #9 osteomyelitis of the spine-patient is on chronic suppressive therapy with amoxicillin Total clinical time spent by myself addressing the patient's medical issues, reviewing all of his data, and collaborating with patient's care team: 35 minutes Medications at Discharge Home Medications citalopram 20 mg tablet 20 mg PO DAILY MOOD 09/21/14 tamsulosin 0.4 mg capsule 0.4 mg PO QHS bph 05/18/19 hydroxychloroquine 200 mg tablet 200 mg PO BID arthritis 04/25/21 isosorbide mononitrate 60 mg tablet,extended release 24 hr 60 mg PO BID heart 02/17/23 amoxicillin 875 mg tablet 875 mg PO Q12H OSTEOMYELITIS 05/09/23 melatonin 3 mg tablet 3 mg PO QHS PRN sleep 05/09/23 ranolazine 500 mg tablet,extended release,12 hr 500 mg PO BID HEART DISEASE 05/09/23 esomeprazole magnesium 20 mg capsule,delayed release (Nexium) 20 mg PO DAILY 08/07/23 metoprolol succinate 50 mg tablet,extended release 24 hr 50 mg PO BID BLOOD PRESSURE 08/07/23 mirtazapine 30 mg disintegrating tablet 30 mg PO QHS 08/07/23 multivitamin 1 tab PO DAILY 08/07/23 losartan 50 mg tablet 50 mg PO DAILY BP 11/21/23 warfarin 4 mg tablet 4 mg PO DAILY 01/14/24 atorvastatin 80 mg tablet 80 mg PO QHS CHOLESTEROL #90 tabs 01/24/24 clopidogrel 75 mg tablet 75 mg PO DAILY 05/09/24 Hospital Course Operations None Procedures None Summary of Care Provided Minutes Spent on Discharge: 30 Hospital Course: This 73-year-old white male was seen in the emergency room at [facility] with chief complaint of right hip pain x 1 week, he also complained of severe pain when trying to get up from a seated position and came into the ER for evaluation. He relates to no history of recent trauma or fall. Workup in the ER showed him to have a pubic rami fracture, this was discussed with the patient and [facility] to [facility] his [facility] surgery, the fracture was read out as a possible pathological fracture which warranted a biopsy. Patient stayed in the hospital for several days waiting for a bed at [facility] below was not available and arrangements were made for the patient to go to [facility] in [place]-they excepted the patient and he was transferred on 05/14/2024. Patient was not seen and examined by myself on that day. Weight / BMI Weight Weight: 147.3 kg Body Mass Index (BMI) 47.9 ABG / Lab / Microbiology Data 05/12/24 06:54 05/13/24 06:37 Microbiology: Microbiology 05/11/24 16:40 Urine Catheter - Adams Urine Culture - Final Klebsiella pneumoniae sp pneum D/C Instructions DC O2, CPAP, BIPAP Needs Home O2 Discharge instructions: No Meaningful Use Info Meaningful Use Meaningful Use Diagnoses (Choose all that apply): None applicable Ischemic Stroke Statin Dosing Therapy Reference: STATIN DOSE THERAPY REFERENCE: * Patients > 75 years receive moderate or high dose statin therapy. * Patients 75 years or YOUNGER should receive HIGH intensity statin dose unless contraindicated. You will be required to document reason for non-treatment if statin daily dose does not meet guidelines. HIGH DOSE STATIN THERAPY DAILY Atorvastatin > than or = to 40 mg Rosuvastatin > than or = to 20 mg Amlodipine + Atorvastatin > than or = to 2.5/40 mg Ezetimibe + Simvastatin 10/80 mg Simvastatin 80mg Discharge Plan Admission Admit Date/Time: 05/10/24 01:15 Attending Provider: Jabier Marin Primary Care Provider: Cornell Gunter Consulting Providers: Cynthia Brunson; Adriana Vera; Mojgan Osorio; Wild Martinez Discharge Orders/Prescriptions Prescriptions: No Action hydroxychloroquine 200 mg tablet 200 mg PO BID mirtazapine 30 mg tablet,disintegrating 30 mg PO QHS esomeprazole magnesium [Nexium] 20 mg capsule,delayed release(DR/EC) 20 mg PO DAILY multivitamin Tablet 1 tab PO DAILY losartan 50 mg tablet 50 mg PO DAILY citalopram 20 MG tablet 20 mg PO DAILY tamsulosin 0.4 MG capsule 0.4 mg PO QHS isosorbide mononitrate 60 mg tablet extended release 24 hr 60 mg PO BID melatonin 3 mg tablet 3 mg PO QHS PRN (Reason: sleep) ranolazine 500 mg tablet extended release 12 hr 500 mg PO BID amoxicillin 875 mg tablet 875 mg PO Q12H metoprolol succinate 50 mg tablet extended release 24 hr 50 mg PO BID warfarin 4 mg tablet 4 mg PO DAILY Protocol: Dose Management Condition: Sunday Dose/Route: 8 mg Instruction: 2 x 4 mg tablets Condition: Sunday Dose/Route: 0 mg Instruction: 0 tablets Condition: Sunday Dose/Route: 8 mg Instruction: 2 x 4 mg tablets Condition: Sunday Dose/Route: 4 mg Instruction: 1 x 4 mg tablet Condition: Dose/Route: 8 mg Instruction: 2 x 4 mg tablets Condition: Sunday Dose/Route: 4 mg Instruction: 1 x 4 mg tablet Condition: Sunday Dose/Route: 8 mg Instruction: 2 x 4 mg tablets Protocol Text: Adjustment Start Date: Sunday05/05/24 INR Value: 4.3 INR Date: 05/05/24 Recheck Date: 05/08/24 Rx Instructions: 4 mg orally 1 tablet on Sunday and Sunday, and 2 tablets (8mg) Sunday through Sunday: OR DIRECTED.; will be stopped one Eliquis is approved or patient assistance clopidogrel 75 mg tablet 75 mg PO DAILY atorvastatin 80 mg tablet 80 mg PO QHS Qty: 90 3RF Referrals / Follow Up: Cornell Gunter MD [Primary Care Provider] - Disposition Disposition (needs filled in before D/C Order can be placed): [facility]
== END 2024-05-14 07:20 | disposition short-term general hospital (02) | DRG 543 ==
LOC: ED 05-10 00:55 → MS3 05-10 01:32
PROVIDERS: Internal Medicine; Internal Medicine Hematology & Oncology; Admitting Provider Family Medicine; Emergency Provider Emergency Medicine; PCP Family Medicine; Visit Provider Internal Medicine
DX: M84.550A Pathological fracture in neoplastic disease, pelvis, initial encounter for fracture (principal); N17.9 Acute kidney failure, unspecified; N13.8 Other obstructive and reflux uropathy; Z68.42 Body mass index [BMI] 45.0-49.9, adult; C43.9 Malignant melanoma of skin, unspecified; N18.32 Chronic kidney disease, stage 3b; M06.9 Rheumatoid arthritis, unspecified; I12.9 Hypertensive chronic kidney disease with stage 1 through stage 4 chronic kidney disease, or unspecified chronic kidney disease; F32.A Depression, unspecified; I48.0 Paroxysmal atrial fibrillation; I25.10 Atherosclerotic heart disease of native coronary artery without angina pectoris; G47.33 Obstructive sleep apnea (adult) (pediatric); K21.9 Gastro-esophageal reflux disease without esophagitis; E78.00 Pure hypercholesterolemia, unspecified; F41.9 Anxiety disorder, unspecified; N40.1 Benign prostatic hyperplasia with lower urinary tract symptoms; E66.813 Obesity, class 3; R79.1 Abnormal coagulation profile; Z79.2 Long term (current) use of antibiotics; Z79.02 Long term (current) use of antithrombotics/antiplatelets; Z79.01 Long term (current) use of anticoagulants; Z87.39 Personal history of other diseases of the musculoskeletal system and connective tissue; Z87.891 Personal history of nicotine dependence; Z95.5 Presence of coronary angioplasty implant and graft
CPT/HCPCS: 36415; 72170; 72192; 73552; 76770; 80048; 80053; 81001; 82043; 82436; 82570; 82784; 83883; 83935; 84133; 84156; 84165; 84300; 85025; 85610; 86334; 87077; 87086; 87088; 87186; 94668; 97162; 97166; 99285; A4216; J2405

== ENCOUNTER 2024-06-10 16:02 | Inpatient (IN) | payer MEDICARE, OTHER, SELFPAY ==
[2024-06-10] VITALS (7 sets, daily range): BP systolic 86–134; BP diastolic 40–80; PULSE 64–67; RESP 18–22; TEMP 36.6–37.9; O2SAT 91–98; BMI 47.9; BMI 45.3
--- NOTE | 2024-06-10 17:04 | CT_ITS ---
PROCEDURE: SPINE CERVICAL WITHOUT CONTRAS; SPINE LUMBAR WITHOUT CONTRAST; SPINE THORACIC WITHOUT CONTRAS 06/10/2024 REASON FOR EXAM: INJURY TECHNIQUE: Cervical, thoracic and lumbar spine CT without contrast. Coronal and Sagittal reconstruction series were provided. One or more dose reduction techniques were used (e.g., Automated exposure control, adjustment of the mA and/or kV according to patient size, use of iterative reconstruction technique COMPARISON: None FINDINGS: Cervical spine: Alignment: Straightening of the cervical lordosis. Atlantoaxial interval is maintained. Vertebrae: Vertebral body heights are maintained. Mild multilevel loss of disc space throughout the cervical spine. No acute fracture or traumatic malalignment. No suspicious lytic or blastic lesions. Multilevel degenerative changes of the cervical spine, without high-grade canal stenosis or neural foraminal narrowing. There is also superimposed findings compatible with DISH. Soft Tissues: Dense atherosclerotic calcification of the common carotid artery. Retropharyngeal course of the bilateral common carotid arteries. Imaged lung hoover are clear. Other: Low-attenuation nodule right thyroid lobe, measuring 19 mm. Thoracic spine: Alignment: Thoracic kyphosis is maintained. Partially imaged postoperative changes T10 fusion extending to the lumbar spine. Vertebrae: Vertebral body heights are maintained. Mixed lytic and sclerotic lesion involving the T7 vertebral body (series 601, image 65). Similar appearance of the T4 vertebral body, however to a smaller extent. Findings are concerning for metastasis. Disc spaces are maintained. No acute fracture or traumatic malalignment. Multilevel degenerative changes, without high-grade canal stenosis or neural foraminal narrowing. Superimposed findings compatible with DISH. Soft Tissues: Paravertebral and paraspinal soft tissues are within normal limits. 9 mm right lower lobe subpleural nodule (series 8 image 65). Patchy opacities in the lung base, compatible with atelectasis. Mild cardiomegaly. Severe coronary artery calcifications. Lumbar spine: Alignment: Straightening of the lumbar lordosis. Postoperative changes T10-L3 posterior fusion with pedicle screws and interconnecting rods. Hardware appears intact. Vertebrae: Endplate irregularities involving T12 and L1 vertebral bodies with mild loss of disc height. Remainder of the disc heights are otherwise maintained. Multifocal lytic and sclerotic lesions, scattered throughout the lumbar spine vertebrae. Multilevel loss of disc space throughout the lumbar spine. No acute fracture or traumatic subluxation. Multilevel degenerative changes with up to moderate canal stenosis and neural foraminal narrowing most prominent at L3-L4 and L4-L5. Lytic lesion involving the right iliac crest (series 12 image 91). Soft Tissues: Paravertebral soft tissues within normal limits. CT/Spine Cervical without Contras IMPRESSION: Cervical spine: 1. No acute fracture or traumatic malalignment. 2. Multilevel degenerative changes, without high-grade canal stenosis or neural foraminal narrowing. 3. 19 mm right thyroid lobe low-attenuation nodule. Recommend further evaluati on with nonemergent thyroid ultrasound. Thoracic spine: 1. No acute fracture or traumatic malalignment. 2. Postoperative changes thoracolumbar fusion. 3. Mixed lytic and sclerotic lesion involving T4 and T7 vertebral bodies as det chanel above, concerning for metastasis. 4. Degenerative changes without high-grade canal stenosis or neural foraminal n arrowing. Lumbar spine: 1. No acute fracture or traumatic malalignment. 2. Postoperative changes T10-L3 posterior fusion. 3. Diffuse sclerotic and lytic lesions throughout the lumbosacral spine, concer teresita for metastasis. 4. Degenerative changes most prominent at L3-L4 and L4-L5. Reading Location: [id number]
[2024-06-10] MEDS: Morphine 4 MG/ML Syringe IV (17:17)
[2024-06-10] MEDS: Ondansetron 4 MG/2 ML Vial IV (17:17)
--- NOTE | 2024-06-10 17:35 | CT_ITS ---
EXAM: BRAIN/HEAD WITHOUT CONTRAST CLINICAL HISTORY: 73 y/o M with INJURY, hit head, no loss of consciousness, currently on blood thinners. History of renal and bone cancer. COMPARISON: None. TECHNIQUE: Routine CT imaging of the head without IV contrast. Additional multiplanar reformats were obtained. Dose reduction techniques were used including intermediate exposure control (AEC),iterative reconstruction technique, and/or mA and/or KV dose adjustments based on patient's size. FINDINGS: Mild generalized cerebral volume loss with concordant prominence of the ventricles and subarachnoid spaces. Moderate patchy supratentorial white matter hypodensities. The ch-white matter interfaces are otherwise maintained. No acute intracranial hemorrhage or herniation. The orbits, visualized paranasal sinuses and mastoids are unremarkable. No acute calvarial fracture or scalp hematoma. CT/Brain/Head without Contrast IMPRESSION: 1. No acute intracranial finding. 2. Findings of chronic microvascular ischemic changes and age-related changes. Reading Location: [id number]
--- NOTE | 2024-06-10 17:35 | CT_ITS ---
PROCEDURE: EXTREMITY LOWER WITHOUT CONTRA 06/10/2024 REASON FOR EXAM: INJURY (KNOWN FX/MALIGNANCY) TECHNIQUE: Axial CT images of the right hip obtained without intravenous contrast. Coronal and Sagittal reconstruction series were provided. One or more dose reduction techniques were used (e.g., Automated exposure control, adjustment of the mA and/or kV according to patient size, use of iterative reconstruction technique RADIATION DOSE SUMMARY: CTDlvol: 50 mGy DLP: 1300 mGycm COMPARISON: Pelvic CT 05/09/2024. FINDINGS: Bones: Unchanged pathologic avulsion fracture of the right ischial tuberosity with moth eaten/permeative appearance of the right ischium, extending to the pubic symphysis. Additional probable lytic foci with cortical expansion within the left pubic bone (series 15, image 43 for example). Cortical lucency along the superior cortical margin of the coccyx (coronal image 98 and sagittal image 87), not present on comparison pelvic CT. Joints: Mild degenerative arthrosis of the visualized right hip and bilateral SI joints. Soft Tissues: Prominent right external iliac chain lymph nodes. Dystrophic calcifications within the prostate gland. Calcific plaque of the aortoiliac vessels. CT/Extremity Lower without Contra IMPRESSION: 1. Unchanged findings of pathologic avulsion fracture of the right ischial tube rosity. 2. Linear lucency along the superior cortical margin of the coccyx, not present on comparison pelvic CT, compatible with acute/subacute coccyx fracture. 3. Prominent right external iliac chain lymph nodes, of indeterminate clinical significance, however this was present on most remote CT abdomen pelvis comparison examination on 05/11/2023. Reading Location: [id number]
[2024-06-10 17:38] LABS: Absolute Lymphocyte Count 0.51 X10^3/uL (0.83-4.51); Absolute Neutrophil Count 8.5 X10^3/uL (2.0-7.7); Basophil# 0.01 X10^3/uL; Basophil% 0.1 % (0-1); Eosinophil# 0.13 X10^3/uL; Eosinophils% 1.2 % (0-5); Hematocrit 30.2 % (40-54); Hemoglobin 9.7 g/dL (13.0-16.5); Lymphocyte # 0.51 X10^3/ul (0.83-4.51); Lymphocyte % 4.8 % (19-41); Mean Corp Hgb Conc 32.1 g/dL (32-36); Mean Corpuscular Hgb 29.5 pg (27.0-32.0); Mean Corpuscular Volume 91.8 fL (80-94); Mean Platelet Vol. 10.3 fl (6.2-12.0); Monocyte# 1.45 X10^3/uL; Monocyte% 13.7 % (0-10); NRBC Flagged by Analyzer 0 % (0-5); Neutrophil # 8.46 X10^3/uL (2.7-7.7); Neutrophil % 79.8 % (47-70); POSITIVE DIFFERENTIAL YES; Platelet Count 339 K/mm3 (150-450); RBC Distribution Width CV 17.1 % (11.6-14.6); Red Blood Count 3.29 M/mm3 (4.6-6.2); White Blood Count 10.6 K/mm3 (4.4-11.0)
--- NOTE | 2024-06-10 17:42 | EDS_ITS ---
HPI HPI - Fall History of Present Illness Chief Complaint: Fall Informant: patient and EMS Narrative Narrative: 73-year-old male presenting to the emergency room following a fall. Patient states that he was recently admitted to [facility] Where he was found to have metastatic renal cancer with bony metastasis to the right hip with resultant fracture but did not require surgery. He was at rehab at [facility] and was discharged on Sunday. Today he was walking and home and went to try to maneuver around some close by lifting up his walker when he fell into the windowsill. He noted a pain into his mid scapular thoracic back. He states he did hit his head and he is on blood thinners. He notes his right hip is not hurting anymore than it has been. He notes chronic low back problems having had an infection in his spine a couple years ago and also has surgical hardware present. 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) use of anticoagulants Wears glasses Ambulates with cane Gout Arthritis Former smoker Pure hypercholesterolemia Paroxysmal atrial fibrillation Polyarthritis Atherosclerotic heart disease of [place] coronary artery without angina pectoris History of left heart catheterization (LHC) (~07/29/19) Atrial fibrillation Essential hypertension CKD (chronic kidney disease), stage III Anxiety and depression Viral syndrome GERD (gastroesophageal reflux disease) Morbid obesity Depression Home Medications ?Medication ?Instructions ?Recorded ?Last Taken ?Type citalopram 20 mg tablet 20 mg PO DAILY MOOD 09/21/14 02/16/23 History tamsulosin 0.4 mg capsule 0.4 mg PO QHS bph 05/18/19 1 04/19/22 History hydroxychloroquine 200 mg tablet 200 mg PO BID arthrit is 04/25/21 01/15/24 History Held on 06/10/24. Instructions: out of script isosorbide mononitrate 60 mg 60 mg PO BID heart 01/15/24 History tablet,extended release 24 hr melatonin 3 mg tablet 3 mg PO QHS PRN sleep 01/15/24 History esomeprazole magnesium 20 mg 20 mg PO DAILY 08/07/23 1 03/16/23 History capsule,delayed release (Nexium) metoprolol succinate 50 mg 50 mg PO BID BLOOD PRESSURE 08/07/23 01/15/24 History tablet,extended release 24 hr mirtazapine 30 mg disintegrating 30 mg PO QHS 08/07/23 01/15/24 History tablet multivitamin 1 tab PO DAILY 08/07/2301/03 History losartan 50 mg tablet 50 mg PO DAILY BP 11/21/23 1 03/16/23 History warfarin 4 mg tablet 4 mg PO DAILY 01/14/2401/09 History atorvastatin 80 mg tablet 80 mg PO QHS CHOLESTEROL #90 tabs 01/24/24 Unknown Rx clopidogrel 75 mg tablet 75 mg PO DAILY 05/09/24 Unkn own History mirtazapine 30 mg tablet 30 mg PO QHS 06/10/24 Unknow n History oxybutynin chloride 5 mg tablet 5 mg PO BID 06/10/24 U nknown History oxycodone 5 mg tablet 5 mg PO Q4H PRN PRN pain 10/27 Unknown History ranolazine 500 mg tablet,extended 500 mg PO BID HEART DISEASE #180 06/10/24 Unknown Rx release,12 hr tabs Allergy/AdvReac Type Severity Reaction Status Date / Time bee venom protein (honey bee) Allergy Hives Verified 06/10/24 16:03 amlodipine AdvReac Severe severe Verified 06/10/24 16:03 swelling in hands and feet ceftriaxone AdvReac Nausea/Vom/ Verified 06/10/24 16:03 Diarrhea spider venom AdvReac Other Verified 06/10/24 16:03 Family History Father Heart disease Diabetes CAD (coronary artery disease) History of coronary artery bypass surgery Cardiac pacemaker in situ Pure hypercholesterolemia Hypertension Mother Hypertension Surgical History History of back surgery History of esophagogastroduodenoscopy (EGD) History of coronary artery stent placement H/O umbilical hernia repair History of inguinal hernia repair, bilateral History of cystoscopy History of knee surgery History of total right knee replacement Social History household members: spouse housing: shelter Smoking Status: Former smoker how long ago did patient quit smokin alcohol intake: never substance use type: does not use caffeine: Yes Type: tea Number of servings: 2 ROS ROS ED Constitutional Constitutional ED: Denies chills, fever(s) or weight loss Eyes Eyes: Denies change in vision or diplopia ENT ENT ED: Denies ear pain, rhinorrhea or sore throat Cardiovascular Cardiovascular: Denies chest pain, orthopnea, palpitations or racing heartbeat Respiratory/Chest Respiratory/Chest: Reports cough; Denies dyspnea or orthopnea Gastrointestinal Gastrointestinal: Denies abdominal pain, diarrhea, nausea or vomiting Genitourinary Genitourinary ED: Denies dysuria, hematuria or urinary frequency Musculoskeletal Musculoskeletal: Reports back pain and other Details: See history of present illness ; Denies arthralgias or myalgias Integumentary Denies abscess or rash Neurologic Neurologic: Denies headache(s), paresthesias or weakness Psychiatric Psychiatric: Denies anxiety, depression, suicidal ideation or suicidal thoughts Endocrine Endocrinology: Denies polydipsia, polyphagia or polyuria Allergic/Immunologic Allergic/Immunologic ED: Denies mouth swelling, tongue swelling or urticaria EXAM Physical Exam Const Vital Signs: 06/10/24 16:03 06/10/24 16:04 06/10/24 18:03 Temperature 98.7 F Temperature Source Oral Pulse Rate 67 64 Respiratory Rate 18 18 Respiratory Effort Normal Respiratory Depth Normal Respiratory Pattern Normal Blood Pressure 132/49 H 128/80 H Blood Pressure Mean 76 96 Pulse Ox 94 98 Oxygen Delivery Method Room Air Room Air Room Air 06/10/24 19:22 06/10/24 20:41 06/10/24 21:00 Temperature 100.2 F H 99.4 F H 99.4 F H Temperature Source Oral Oral Pulse Rate 64 65 Respiratory Rate 18 22 H Respiratory Effort Respiratory Depth Respiratory Pattern Blood Pressure 86/67 L 106/43 L Blood Pressure Mean 73 64 Pulse Ox 93 91 Oxygen Delivery Method Room Air Positive well nourished, well developed and obese General Appearance ED: well developed and NAD Nutritional Appearance: obese HEENT Reports normocephalic, head/scalp atraumatic and moist mucous membranes Eyes PERRL and EOMs intact bilaterally Neck no lymphadenopathy, supple and no JVD Resp normal respiratory effort and clear to auscultation bilaterally Cardio regular rate, regular rhythm and no murmurs GI normal to inspection, nondistended, normoactive bowel sounds and non-tender Palpation: soft Back/Spine no CVA tenderness Back/Spine Narrative: There is a healed midline lumbar incision. Do not appreciate any midline tenderness of the thoracic spine. Do not appreciate ecchymosis hematoma or abrasions. Painful range of motion Extremity Extremity Narrative: Tender to palpation around the right hip. General Extremety ED: Negative for edema General Extremity: Negative for edema Neuro oriented x3 and CN's II-XII intact bilaterally Sensorium / Orientation: alert Motor Exam: strength 5/5 throughout Psych mental status grossly normal Mood & Affect: Negative for depressed or tearful Skin no rashes or lesions noted and no wounds MDM MDM MDM Narrative Medical decision making narrative: Differential diagnosis includes intracranial hemorrhage skull fracture spine fracture back contusion supratherapeutic and subtherapeutic INR UTI acute kidney injury electrolyte abnormalities sepsis CT the brain cervical spine thoracic spine and lumbar spine were obtained. These were read by radiology reviewed by myself. CT of the right hip was also obtained. No acute fractures are seen. No evidence of metastatic disease is noted. No intracranial hemorrhage is noted. Patient's white count is 10.6 hemoglobin is 9.7. INR supratherapeutic at 4 lactic acid is normal. Creatinine 2.1 with a BUN of 24. Urinalysis is grossly infected on visual examination. Greater than 100 white cells 4+ bacteria positive nitrates. I did review his prior urine cultures. We chose Levaquin based upon those prior cultures. Patient received IV fluids as well as morphine and Zofran. is concerned about him falling at home plan will be for admission. I did contact social work as I anticipate the patient most likely will need rehabilitation. History & Record Review Discussion w/independent historian: Patient and Significant other Additional record(s) reviewed:: Prior ED visit, Prior labs and No prior records Lab Data Attestation: I reviewed the patient's lab results. Labs: Laboratory Results - last 24 hr 06/10/24 06/10/24 06/10/24 17:10 19:42 19:48 WBC 10.6 RBC 3.29 L Hgb 9.7 L Hct 30.2 L MCV 91.8 MCH 29.5 MCHC 32.1 RDW Std Deviation 58.0 H RDW Coeff of Abdiel 17.1 H Plt Count 339 MPV 10.3 Immature Gran % (Auto) 0.400 Neut % (Auto) 79.8 H Lymph % (Auto) 4.8 L Thomas % (Auto) 13.7 H Eos % (Auto) 1.2 Baso % (Auto) 0.1 Absolute Neuts (auto) 8.5 H Absolute Lymphs (auto) 0.51 L Nucleated RBC % 0 PT 40.3 H INR 4.0 H* Sodium 138 Potassium 4.3 Chloride 102 Carbon Dioxide 22.0 Anion Gap 13 BUN 24 H Creatinine 2.10 H Estim Creat Clear Calc 46.25 L Est GFR (MDRD) Non-Af 33 L BUN/Creatinine Ratio 11.5 Glucose 122 H Lactic Acid < 1.0 Calcium 8.5 Magnesium 1.8 Total Bilirubin 0.56 Direct Bilirubin 0.37 H AST 28 ALT 7 Alkaline Phosphatase 271 H Total Protein 7.2 Albumin 3.4 Globulin 3.8 Urine Color Yellow Urine Clarity Turbid Urine pH 6.0 Ur Specific Uriah 1.015 Urine Protein 100 H Urine Glucose (UA) Normal Urine Ketones Negative Urine Occult Blood 150 H Urine Nitrite Positive H Urine Bilirubin Negative Urine Urobilinogen Normal Ur Leukocyte Esterase 500 H Urine RBC 0-5 SEEN Urine WBC >100 SEEN Ur Squamous Epith Cells 0-5 SEEN Urine Bacteria 4+ Urine Mucus 0 SEEN Radiography Diagnostic Testing: Clinical Impression(s) from Imaging Studies Cervical Spine CT 06/10/24 17:04 IMPRESSION: Cervical spine: 1. No acute fracture or traumatic malalignment. 2. Multilevel degenerative changes, without high-grade canal stenosis or neural foraminal narrowing. 3. 19 mm right thyroid lobe low-attenuation nodule. Recommend further evaluation with nonemergent thyroid ultrasound. Thoracic spine: 1. No acute fracture or traumatic malalignment. 2. Postoperative changes thoracolumbar fusion. 3. Mixed lytic and sclerotic lesion involving T4 and T7 vertebral bodies as detailed above, concerning for metastasis. 4. Degenerative changes without high-grade canal stenosis or neural foraminal narrowing. Lumbar spine: 1. No acute fracture or traumatic malalignment. 2. Postoperative changes T10-L3 posterior fusion. 3. Diffuse sclerotic and lytic lesions throughout the lumbosacral spine, concerning for metastasis. 4. Degenerative changes most prominent at L3-L4 and L4-L5. Reading Location: [facility] BEDS AT [facility] Thoracic Spine CT 06/10/24 17:09 IMPRESSION: Cervical spine: 1. No acute fracture or traumatic malalignment. 2. Multilevel degenerative changes, without high-grade canal stenosis or neural foraminal narrowing. 3. 19 mm right thyroid lobe low-attenuation nodule. Recommend further evaluation with nonemergent thyroid ultrasound. Thoracic spine: 1. No acute fracture or traumatic malalignment. 2. Postoperative changes thoracolumbar fusion. 3. Mixed lytic and sclerotic lesion involving T4 and T7 vertebral bodies as detailed above, concerning for metastasis. 4. Degenerative changes without high-grade canal stenosis or neural foraminal narrowing. Lumbar spine: 1. No acute fracture or traumatic malalignment. 2. Postoperative changes T10-L3 posterior fusion. 3. Diffuse sclerotic and lytic lesions throughout the lumbosacral spine, concerning for metastasis. 4. Degenerative changes most prominent at L3-L4 and L4-L5. Reading Location: [facility] 234 BEDS AT [facility] Brain CT 06/10/24 17:35 IMPRESSION: 1. No acute intracranial finding. 2. Findings of chronic microvascular ischemic changes and age-related changes. Reading Location: [facility] Lower Extremity CT 06/10/24 17:35 IMPRESSION: 1. Unchanged findings of pathologic avulsion fracture of the right ischial tuberosity. 2. Linear lucency along the superior cortical margin of the coccyx, not present on comparison pelvic CT, compatible with acute/subacute coccyx fracture. 3. Prominent right external iliac chain lymph nodes, of indeterminate clinical significance, however this was present on most remote CT abdomen pelvis comparison examination on 05/11/2023. Reading Location: [facility] Lumbar Spine CT 06/10/24 17:35 IMPRESSION: Cervical spine: 1. No acute fracture or traumatic malalignment. 2. Multilevel degenerative changes, without high-grade canal stenosis or neural foraminal narrowing. 3. 19 mm right thyroid lobe low-attenuation nodule. Recommend further evaluation with nonemergent thyroid ultrasound. Thoracic spine: 1. No acute fracture or traumatic malalignment. 2. Postoperative changes thoracolumbar fusion. 3. Mixed lytic and sclerotic lesion involving T4 and T7 vertebral bodies as detailed above, concerning for metastasis. 4. Degenerative changes without high-grade canal stenosis or neural foraminal narrowing. Lumbar spine: 1. No acute fracture or traumatic malalignment. 2. Postoperative changes T10-L3 posterior fusion. 3. Diffuse sclerotic and lytic lesions throughout the lumbosacral spine, concerning for metastasis. 4. Degenerative changes most prominent at L3-L4 and L4-L5. [facility] Management Discussion w/another healthcare provider: Hospitalist (Dr Rose) Discharge Plan Dx/Rx/DC Orders Clinical Impression: Fall, Supratherapeutic INR, Malignant neoplasm of kidney metastatic to bone, Back contusion, Acute UTI Disposition Disposition: [facility]
[2024-06-10 17:55] LABS: Prothrombin Time (Protime)PT. 40.3 SECONDS (11.7-14.9)
--- NOTE | 2024-06-10 18:04 | ED.RN ---
ED MD notified of INR 4.0
[2024-06-10 18:28] LABS: AST(SGOT) 28 U/L (<=37); Alanine Aminotransfer ALT/SGPT 7 U/L (<=46); Albumin, Serum 3.4 g/dL (3.4-4.8); Alkaline Phosphatase 271 U/L (40-129); Anion Gap 13 (5-15); BUN 24 mg/dL (4-19); BUN/Creat Ratio 11.5 RATIO (10-20); Bilirubin, Direct 0.37 mg/dL (0.00-0.30); Calcium,Total 8.5 mg/dL (7.6-11.0); Chloride 102 mmol/L (98-108); EST Glomerular Filtration Rate 33 (>60); Estimated Creatinine Clearance 46.25 ml/min (50-250); Globulin 3.8 g/dL (2.2-4.2); Glucose 122 mg/dL (70-99); Potassium 4.3 mmol/L (3.3-5.1); Protein, Total 7.2 g/dL (5.9-8.4); Sodium Level 138 mmol/L (133-145); Total Bilirubin 0.56 mg/dL (0.00-1.30)
--- NOTE | 2024-06-10 19:23 | ED.RN ---
Patient given urinal and prompted for a urine specimen.
[2024-06-10 19:52] LABS: Mucous, Urine 0 SEEN /hpf (<or=2+)
[2024-06-10 20:02] LABS: Color, Urine Yellow (Yellow); Glucose, Dipstick Normal (Normal); Ketone-Dipstick Negative (Negative); Leukocyte Esterase-Dipstick 500 /ul (Negative); Nitrite-Dipstick Positive (Negative); Occult Blood-Urine 150 /ul (Negative); Protein-Dipstick 100 mg/dl (Negative); Specific Gravity, Urine 1.015 (1.002-1.030); Urine Bilirubin Dipstick Negative (Negative); Urine Clarity Turbid (Clear); Urine Urobilinogen Normal (Normal)
[2024-06-10 20:10] LABS: Bacteria 4+ /hpf (None Seen); Red Blood Cells-Urine 0-5 SEEN /hpf (0-5); Squamous Epithelial Cells - UA 0-5 SEEN /hpf (0-5); White Blood Cells >100 SEEN /hpf (0-5)
[2024-06-10 20:35] LABS: Lactic Acid < 1.0 mmol/L (0.0-2.0)
[2024-06-10] MEDS: levoFLOXacin IV 750 MG/150 ML BAG 100 MG IV (20:38)
[2024-06-10] MEDS: 0.9% Normal Saline (1000mL) 1,000 ML 999 ML IV ×2 (21:04→23:09)
--- NOTE | 2024-06-10 21:06 | PCM.HP.STD ---
[facility] General Date of Admission: 06/10/24 Date of Service: 06/10/24 Chief Complaint: Fall at Home. [facility] Narrative GUTSAVO MONTIEL, is a 73 M with a past medical history of essential hypertension; on losartan and metoprolol, hyperlipidemia; on high-dose atorvastatin, former tobacco abuse (quit 1985), morbid obesity; BMI of 48 this admission, LILI, history of paroxysmal atrial fibrillation; on warfarin, CAD; s/p stent placement (2022) on clopidogrel, ranolazine and ISMO, CKD; stage IIIb, GERD; with history of Schatzki's ring; s/p EGD (2023) on esomeprazole, history of osteomyelitis (2022), history of septic Right knee joint, history of lumbar discitis; s/p surgical treatment with hardware in place, history of bilateral inguinal hernias; s/p repair, history of umbilical hernia repair, BPH; on tamsulosin, OAB; on oxybutynin twice daily, history of membranous urethral stricture, history of depression and anxiety; on citalopram and mirtazapine, history of gout, OA; with history of Right TKR and closed compression fracture of L1 and T12 with chronic low back pain on oxycodone 5 mg p.o. every 4 hours as needed and history of previously known metastatic renal cancer with bony metastases to the Right hip with resultant pathologic fracture; that did not require surgery with recent admission at [facility] with subsequent cement rehabilitation [facility] with discharge on Sunday, June 07, 2024 who presents to [facility] ER complaining of fall at home. Mr. Montiel reports her symptoms began earlier today when he was walking and went to try to maneuver around some clothes by lifting up his walker when he suddenly lost his balance and [facility] He then noted pain in his mid back and scapular region. He also admits to hitting his head but he denies loss of consciousness or significant head trauma with this fall. He states his Right hip is not hurting anymore than it previously was. He admits to cough that is nonproductive. He denies associated fever, chills, visual changes, runny nose, sore throat, ear pain, chest pain, palpitations, heart racing, shortness of breath, abdominal pain, nausea, vomiting, diarrhea, dysuria, hematuria, headache or paresthesias. In the ER he was noted to have a UA positive for Acute Cystitis; without hematuria complicated by supratherapeutic INR of 4 present on admission compounded by recent Fall at Home with subsequent Acute Thoracic Back Pain in the setting of known Chronic Low Back Pain causing Generalized Weakness with Ambulatory Dysfunction and he was then admitted to the general medical floor for ongoing care for a stay that is expected to extend beyond 2 midnights. [facility] Medical History (Updated 06/11/24 @ 04:[address] 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 Wears glasses Ambulates with cane Gout Arthritis Former smoker Pure hypercholesterolemia Paroxysmal atrial fibrillation Polyarthritis Atherosclerotic heart disease of [place] coronary artery without angina pectoris History of left heart catheterization (LHC) (~07/29/19) Atrial fibrillation Essential hypertension CKD (chronic kidney disease), stage III Anxiety and depression Viral syndrome GERD (gastroesophageal reflux disease) Morbid obesity Depression Home Medications ?Medication ?Instructions ?Recorded ?Last Taken ?Type citalopram 20 mg tablet 20 mg PO DAILY MOOD 09/21/14 02/16/23 History tamsulosin 0.4 mg capsule 0.4 mg PO QHS bph 05/18/19 02/16/23 History hydroxychloroquine 200 mg tablet 200 mg PO BID arthritis 04/25/21 01/15/24 History Held on 06/10/24. Instructions: out of script isosorbide mononitrate 60 mg 60 mg PO BID heart 02/17/23 01/15/24 History tablet,extended release 24 hr melatonin 3 mg tablet 3 mg PO QHS PRN sleep 05/09/23 01/15/24 History esomeprazole magnesium 20 mg 20 mg PO DAILY 08/07/23 01/15/24 History capsule,delayed release (Nexium) metoprolol succinate 50 mg 50 mg PO BID BLOOD PRESSURE 08/07/23 01/15/24 History tablet,extended release 24 hr mirtazapine 30 mg disintegrating 30 mg PO QHS 08/07/23 01/15/24 History tablet multivitamin 1 tab PO DAILY 08/07/23 01/15/24 History losartan 50 mg tablet 50 mg PO DAILY BP 11/21/23 01/15/24 History warfarin 4 mg tablet 4 mg PO DAILY 01/14/24 01/10/24 History atorvastatin 80 mg tablet 80 mg PO QHS CHOLESTEROL #90 tabs 01/24/24 Unknown Rx clopidogrel 75 mg tablet 75 mg PO DAILY 05/09/24 Unknown History mirtazapine 30 mg tablet 30 mg PO QHS 06/10/24 Unknown History oxybutynin chloride 5 mg tablet 5 mg PO BID 06/10/24 Unknown History oxycodone 5 mg tablet 5 mg PO Q4H PRN PRN pain 06/10/24 Unknown History ranolazine 500 mg tablet,extended 500 mg PO BID HEART DISEASE #180 06/10/24 Unknown Rx release,12 hr tabs Allergy/AdvReac Type Severity Reaction Status Date / Time bee venom protein (honey bee) Allergy Hives Verified 06/10/24 16:03 amlodipine AdvReac Severe severe Verified 06/10/24 16:03 swelling in hands and feet ceftriaxone AdvReac Nausea/Vom/ Verified 06/10/24 16:03 Diarrhea spider venom AdvReac Other Verified 06/10/24 16:03 Family History Father Heart disease Diabetes CAD (coronary artery disease) History of coronary artery bypass surgery Cardiac pacemaker in situ Pure hypercholesterolemia Hypertension Mother Hypertension Surgical History History of back surgery History of esophagogastroduodenoscopy (EGD) History of coronary artery stent placement H/O umbilical hernia repair History of inguinal hernia repair, bilateral History of cystoscopy History of knee surgery History of total right knee replacement Social History household members: spouse housing: longterm Smoking Status: Former smoker how long ago did patient quit smokin alcohol intake: never substance use type: does not use caffeine: Yes Type: tea Number of servings: 2 ROS ROS Narrative Review of Systems: Constitutional: Patient denies fever or chills. Eyes: Patient denies changes vision or discharge from eyes. ENT: Patient denies runny nose, sore throat or ear pain. Resp: Patient admits to cough but he denies shortness of breath. CV: Patient denies chest pain, palpitations, heart racing or orthopnea. GI: Patient denies abdominal pain, nausea, vomiting, diarrhea or constipation. : Patient denies dysuria, hematuria or urinary frequency. MSK: Patient admits to thoracic back pain as per HPI. Skin: Patient denies abscess, wounds, rash or jaundice. Psych: Patient denies symptoms of uncontrolled depression or anxiety. Neuro: Patient denies headache, paresthesias or focal neurologic deficits. Hematology: Patient admits to easy bleeding on warfarin. Endocrinology: Patient denies polyuria, polydipsia, polyphagia or heat/cold intolerance. 14 point ROS otherwise negative except for positives noted above in HPI. Vital Signs Vital Signs Vital Signs: 06/10/24 16:03 06/10/24 16:04 06/10/24 18:03 Temperature 98.7 F Temperature Source Oral Pulse Rate 67 64 Respiratory Rate 18 18 Respiratory Effort Normal Respiratory Depth Normal Respiratory Pattern Normal Blood Pressure 132/49 H 128/80 H Blood Pressure Mean 76 96 Pulse Ox 94 98 Oxygen Delivery Method Room Air Room Air Room Air 06/10/24 19:22 06/10/24 20:41 06/10/24 21:00 Temperature 100.2 F H 99.4 F H 99.4 F H Temperature Source Oral Oral Pulse Rate 64 65 Respiratory Rate 18 22 H Respiratory Effort Respiratory Depth Respiratory Pattern Blood Pressure 86/67 L 106/43 L Blood Pressure Mean 73 64 Pulse Ox 93 91 Oxygen Delivery Method Room Air Weight Weight: 324 lb 11.854 oz Body Mass Index (BMI) 47.9 Physical Exam Const alert, oriented x3 and no apparent distress Constitutional Narrative: Patient is morbidly obese and appears chronically ill. General Appearance: cooperative HEENT normocephalic, head/scalp atraumatic, hearing grossly normal bilaterally and moist oral mucous membranes Eyes PERRL and EOMs intact bilaterally Neck no lymphadenopathy, supple and no JVD Resp normal respiratory effort, no retractions, no use of accessory muscles and clear to auscultation bilaterally Cardio regular rate and regular rhythm GI normal to inspection, nondistended, normoactive bowel sounds, soft to palpation, non-tender and non-distended GI Narrative: Morbidly obese. Extremity no clubbing, cyanosis or edema Extremity Narrative: Patient is tender to palpation around the Right hip. Skin Skin Narrative: Patient has evidence of rash, abscess, wounds or jaundice. Neuro oriented x3, CN's II-XII intact bilaterally, moves all extremities and no focal motor deficits Sensorium / Orientation: awake, alert, oriented to person, oriented to place and oriented to time Speech: speech normal Psych affect normal Results Medical Records Data Attestation: I reviewed the patient's medical records Lab / Micro Data Attestation: I reviewed the patient's lab results. 06/10/24 17:10 06/10/24 17:10 Labs: Laboratory Results - last 24 hr 06/10/24 17:10: WBC 10.6, RBC 3.29 L, Hgb 9.7 L, Hct 30.2 L, MCV 91.8, MCH 29.5, MCHC 32.1, RDW Std Deviation 58.0 H, RDW Coeff of Abdiel 17.1 H, Plt Count 339, MPV 10.3, Immature Gran % (Auto) 0.400, Neut % (Auto) 79.8 H, Lymph % (Auto) 4.8 L, [place] % (Auto) 13.7 H, Eos % (Auto) 1.2, Baso % (Auto) 0.1, Absolute Neuts (auto) 8.5 H, Absolute Lymphs (auto) 0.51 L, Nucleated RBC % 0, PT 40.3 H, INR 4.0 H*, Sodium 138, Potassium 4.3, Chloride 102, Carbon Dioxide 22.0, Anion Gap 13, BUN 24 H, Creatinine 2.10 H, Estim Creat Clear Calc 46.25 L, Est GFR (MDRD) Non-Af 33 L, BUN/Creatinine Ratio 11.5, Glucose 122 H, Calcium 8.5, Total Bilirubin 0.56, Direct Bilirubin 0.37 H, AST 28, ALT 7, Alkaline Phosphatase 271 H, Total Protein 7.2, Albumin 3.4, Globulin 3.8 06/10/24 19:42: Urine Color Yellow, Urine Clarity Turbid, Urine pH 6.0, Ur Specific Frost 1.015, Urine Protein 100 H, Urine Glucose (UA) Normal, Urine Ketones Negative, Urine Occult Blood 150 H, Urine Nitrite Positive H, Urine Bilirubin Negative, Urine Urobilinogen Normal, Ur Leukocyte Esterase 500 H, Urine RBC 0-5 SEEN, Urine WBC >100 SEEN, Ur Squamous Epith Cells 0-5 SEEN, Urine Bacteria 4+, Urine Mucus 0 SEEN 06/10/24 19:48: Lactic Acid < 1.0 Micro: Microbiology 06/10/24 17:10 Mucosa - Nose SARS-CoV-2, Influenza & RSV (PCR) - Final Imaging Radiology Impression Cervical Spine CT 06/10/24 17:04 IMPRESSION: Cervical spine: 1. No acute fracture or traumatic malalignment. 2. Multilevel degenerative changes, without high-grade canal stenosis or neural foraminal narrowing. 3. 19 mm right thyroid lobe low-attenuation nodule. Recommend further evaluation with nonemergent thyroid ultrasound. Thoracic spine: 1. No acute fracture or traumatic malalignment. 2. Postoperative changes thoracolumbar fusion. 3. Mixed lytic and sclerotic lesion involving T4 and T7 vertebral bodies as detailed above, concerning for metastasis. 4. Degenerative changes without high-grade canal stenosis or neural foraminal narrowing. Lumbar spine: 1. No acute fracture or traumatic malalignment. 2. Postoperative changes T10-L3 posterior fusion. 3. Diffuse sclerotic and lytic lesions throughout the lumbosacral spine, concerning for metastasis. 4. Degenerative changes most prominent at L3-L4 and L4-L5. Reading Location: [facility] Thoracic Spine CT 06/10/24 17:09 IMPRESSION: Cervical spine: 1. No acute fracture or traumatic malalignment. 2. Multilevel degenerative changes, without high-grade canal stenosis or neural foraminal narrowing. 3. 19 mm right thyroid lobe low-attenuation nodule. Recommend further evaluation with nonemergent thyroid ultrasound. Thoracic spine: 1. No acute fracture or traumatic malalignment. 2. Postoperative changes thoracolumbar fusion. 3. Mixed lytic and sclerotic lesion involving T4 and T7 vertebral bodies as detailed above, concerning for metastasis. 4. Degenerative changes without high-grade canal stenosis or neural foraminal narrowing. Lumbar spine: 1. No acute fracture or traumatic malalignment. 2. Postoperative changes T10-L3 posterior fusion. 3. Diffuse sclerotic and lytic lesions throughout the lumbosacral spine, concerning for metastasis. 4. Degenerative changes most prominent at L3-L4 and L4-L5. Reading Location: [facility] Brain CT 06/10/24 17:35 IMPRESSION: 1. No acute intracranial finding. 2. Findings of chronic microvascular ischemic changes and age-related changes. Reading Location: [facility] Lower Extremity CT 06/10/24 17:35 IMPRESSION: 1. Unchanged findings of pathologic avulsion fracture of the right ischial tuberosity. 2. Linear lucency along the superior cortical margin of the coccyx, not present on comparison pelvic CT, compatible with acute/subacute coccyx fracture. 3. Prominent right external iliac chain lymph nodes, of indeterminate clinical significance, however this was present on most remote CT abdomen pelvis comparison examination on 05/11/2023. Reading Location: [facility] Lumbar Spine CT 06/10/24 17:35 IMPRESSION: Cervical spine: 1. No acute fracture or traumatic malalignment. 2. Multilevel degenerative changes, without high-grade canal stenosis or neural foraminal narrowing. 3. 19 mm right thyroid lobe low-attenuation nodule. Recommend further evaluation with nonemergent thyroid ultrasound. Thoracic spine: 1. No acute fracture or traumatic malalignment. 2. Postoperative changes thoracolumbar fusion. 3. Mixed lytic and sclerotic lesion involving T4 and T7 vertebral bodies as detailed above, concerning for metastasis. 4. Degenerative changes without high-grade canal stenosis or neural foraminal narrowing. Lumbar spine: 1. No acute fracture or traumatic malalignment. 2. Postoperative changes T10-L3 posterior fusion. 3. Diffuse sclerotic and lytic lesions throughout the lumbosacral spine, concerning for metastasis. 4. Degenerative changes most prominent at L3-L4 and L4-L5. Reading Location: [facility] Assessment & Plan Assessment/Plan (1) Acute cystitis without hematuria: (2) Supratherapeutic INR: (3) Fall at home: QUALIFIERS: Encounter type: initial encounter Qualified Code(s): W19.XXXA - Unspecified fall, initial encounter; Y92.009 - Unspecified place in unspecified non-institutional (private) residence as the place of occurrence of the external cause (4) Back contusion: QUALIFIERS: Encounter type: initial encounter Laterality: unspecified laterality Qualified Code(s): S20.229A - Contusion of unspecified back wall of thorax, initial encounter (5) Chronic low back pain: QUALIFIERS: Back pain laterality: unspecified Sciatica presence: without sciatica Qualified Code(s): M54.50 - Low back pain, unspecified; G89.29 - Other chronic pain (6) Generalized weakness: (7) Ambulatory dysfunction: (8) Malignant neoplasm of kidney metastatic to bone: (9) Pathological fracture of pelvis: QUALIFIERS: Encounter type: sequela Pathology associated with fracture: neoplastic disease Qualified Code(s): M84.550S - Pathological fracture in neoplastic disease, pelvis, sequela (10) Morbid obesity with BMI of 45.0-49.9, adult: PLAN: Plan 1. UA positive for Acute Cystitis; without hematuria - Admit to general medical floor. Continue empiric IV levofloxacin begun in ER and await culture and sensitivity data. Give acetaminophen as needed for [id number] (level 1-5/10) pain or fever. Continue oxycodone as needed for severe (level 6-10/10) pain. 2. Supratherapeutic INR of 4 present on admission complicating #1 - Hold warfarin and give low-dose oral vitamin K with plan to recheck PT/INR in AM to follow trend. 3. Fall at Home with subsequent Acute Thoracic Back Pain in the setting of known Chronic Low Back Pain compounding #1 & #2 - We will manage pain according to agents and scales outlined in #1. 4. Generalized Weakness with Ambulatory Dysfunction attributable to #1 - #3 - PT/OT and Case Management to consult and treat on rounds in the AM for further recommendations with help appreciated in advance. 5. Previously known Renal Cancer with bony metastases to the Right hip with resultant pathologic fracture; that did not require surgery with recent admission at [facility] with subsequent cement rehabilitation [facility] with discharge on Friday, June 07, 2024 adding to the medical complexity of #1 - #4 - Noted with no evidence of acute fracture or other significant pathologic changes noted on imaging this admission. 6. Morbid Obesity; BMI of 48 this admission plus LILI adding to the burden of disease outlined from #1 - #5 - Weight loss will be recommended. Check TSH. Continue nocturnal CPAP. This complicates his case and may hamper recovery. 7. Essential hypertension; on losartan and metoprolol - Maintain home regimen plus give prn IV hydralazine for systolic blood pressure > 160 mmHg. 8. Hyperlipidemia; on high-dose atorvastatin - Resume statin and check Lipid Profile. 9. Former tobacco abuse (quit 1985) - Noted. 10. History of paroxysmal atrial fibrillation; on warfarin - Noted with warfarin held in light of #2. 11. CAD; s/p stent placement (2022) on clopidogrel, ranolazine and ISMO - Maintain current therapy. Serialize troponin if chest pain ensues. 12. CKD; stage IIIb - Stable with eGFR of 33ml/min present on admission. 13. GERD; with history of Schatzki's ring; s/p EGD (2023) on esomeprazole - Continue PPI as before. 14. History of osteomyelitis (2022) - Noted. 15. History of lumbar discitis; s/p surgical treatment with hardware in place - Noted. 16. History of septic Right knee joint - Noted. 17. History of bilateral inguinal hernias; s/p repair - Noted. 18. History of umbilical hernia repair - Noted. 19. BPH; on tamsulosin - Resume tamsulosin as before. 20. OAB; on oxybutynin twice daily - Continue oxybutynin as previous. 21. History of membranous urethral stricture - Noted. 22. History of depression and anxiety; on citalopram and mirtazapine - Maintain current treatment. 23. History of gout - Stable and chronic with no evidence of acute flare. 24. OA; with history of Right TKR and closed compression fracture of L1 and T12 with chronic low back pain on oxycodone 5 mg p.o. every 4 hours as needed - We will follow pain regimen and scales outlined in #1. 25. DVT prophylaxis - Patient had supratherapeutic INR of 4 present on admission. Check PT/INR daily. Total time: Approximately (but not less than) 75 minutes. Charges/Coding Visit Charges Inpatient E&M: 72604 In Hosp L3
--- NOTE | 2024-06-10 21:10 | ED.RN ---
spoke with dispatch to call [facility] to look for pt's medical folder
[2024-06-10 22:48] LABS: Magnesium 1.8 mg/dL (1.5-2.2)
[2024-06-11] VITALS (11 sets, daily range): BP systolic 106–134; BP diastolic 41–72; PULSE 56–66; RESP 14–18; TEMP 36.6–37.1; O2SAT 93–97; BMI 45.5
[2024-06-11] MEDS: oxyCODONE 5 MG Tablet PO ×4 (00:03→22:15)
[2024-06-11] MEDS: Isosorbide Mononitrate 60 MG Tablet PO ×3 (00:04→22:14)
[2024-06-11] MEDS: Acetaminophen 325 MG Tablet 650 MG PO ×2 (00:04→09:47)
[2024-06-11] MEDS: Ranolazine 500 MG Tablet PO ×3 (00:04→22:14)
[2024-06-11] MEDS: Phytonadione (Vit K1) 5 MG TABLET 2.5 MG PO (00:04)
[2024-06-11] MEDS: Tamsulosin HCl 0.4 MG Capsule PO ×2 (00:05→22:13)
[2024-06-11] MEDS: Lactobacillis Acidophilus 1 CAP PO ×4 (00:05→22:13)
[2024-06-11] MEDS: Oxybutynin 5 MG Tablet PO ×2 (00:06→09:08)
[2024-06-11] MEDS: Atorvastatin Calcium 80 MG Tablet PO ×2 (00:06→22:14)
[2024-06-11] MEDS: Metoprolol(XL)Succ 50 MG Tablet PO ×3 (00:06→22:14)
[2024-06-11] MEDS: Mirtazapine 30 MG Tablet PO ×2 (00:06→22:14)
[2024-06-11] MEDS: 0.9% Normal Saline (1000mL) 1,000 ML 70 ML IV ×2 (00:14→14:12)
--- NOTE | 2024-06-11 07:31 | PCM.PN.HOSP ---
Reason for Visit Reason for Visit: Fall at home Subjective Subjective Patient is a 73-year-old white male who presents emergency department [facility] on 06/10/2024 with a fall at home. Patient has a extremely complex medical history and was recently diagnosed with renal cell carcinoma and bony metastasis. He follows with Dr. Perez in [place]. He has not yet started any chemotherapy. He was recently diagnosed with right hip pathologic fracture did not require surgery and is weightbearing as tolerated. He had a recent admission to [facility] with rehab at [facility]. He was discharged on June 07. Shortly after leaving he had a fall at home. Family at the bedside feels that he was probably discharged too early. He indicated his symptoms began early on the day of presentation was walking and went to try to maneuver around some close by lifting up his walker then suddenly lost his balance and fell onto the windowsill. After that he had pain in his mid back and scapular region. He did hit his head but denied loss of consciousness. His right hip is stable with regards to his symptoms. Vital signs on presentation showed a temperature of 98.7, heart rate 67, respiratory to 18, blood pressure is 132/49 and pulse ox was 94% on room air. CBC showed chronic stable anemia with a hemoglobin of 9.7. He did have a neutrophilia on his differential with a 79.8% neutrophil count. His INR was supratherapeutic at 4.0. Chemistry panel showed chronic stable renal dysfunction with a baseline serum creatinine between 2.1 and 2.35. On presentation was 2.1. Glucose was 122. Lactic acid was less than 1. Liver function was unremarkable other than mildly elevated alk phos which would be expected given his bony mets. His UA was markedly turbid and consistent with infection being positive for nitrites and leuk esterase. He had greater than 100 white cells seen per high-powered field and had 4+ bacteria. He was admitted to the medical floor and placed on antibiotics after urine culture was obtained. Patient does states he is weak today. Still having pain. Feels like he needs rehab again and is interested in [facility]. Case management is involved Objective Data Objective Data Vital Signs: Vital Signs Temp Pulse Resp BP Pulse Ox O2 Del Method O2 Flow Rate 97.8 F 56 L 18 110/62 97 Nasal Cannula 2 06/11/24 05:28 06/11/24 05:28 06/11/24 05:28 06/11/24 05:28 06/11/24 05:28 06/11/24 05:28 06/11/24 05:28 Oxygen Flow Rate (L/min) 2 Oxygen Delivery Method Nasal Cannula Weight: 139.4 kg Body Mass Index (BMI) 45.5 Intake & Output: Intake and Output for Last 24 Hours 06/09/24 06/10/24 06/11/24 23:59 23:59 23:59 Intake Total 1150 / 1150 1000 / 1000 Output Total 460 / 460 Balance 1150 / 1150 540 / 540 Lab / Micro Data 06/11/24 07:52 06/11/24 07:52 Labs: Laboratory Results - last 24 hr 06/10/24 17:10: WBC 10.6, RBC 3.29 L, Hgb 9.7 L, Hct 30.2 L, MCV 91.8, MCH 29.5, MCHC 32.1, RDW Std Deviation 58.0 H, RDW Coeff of Abdiel 17.1 H, Plt Count 339, MPV 10.3, Immature Gran % (Auto) 0.400, Neut % (Auto) 79.8 H, Lymph % (Auto) 4.8 L, [place] % (Auto) 13.7 H, Eos % (Auto) 1.2, Baso % (Auto) 0.1, Absolute Neuts (auto) 8.5 H, Absolute Lymphs (auto) 0.51 L, Nucleated RBC % 0, PT 40.3 H, INR 4.0 H*, Sodium 138, Potassium 4.3, Chloride 102, Carbon Dioxide 22.0, Anion Gap 13, BUN 24 H, Creatinine 2.10 H, Estim Creat Clear Calc 46.25 L, Est GFR (MDRD) Non-Af 33 L, BUN/Creatinine Ratio 11.5, Glucose 122 H, Calcium 8.5, Magnesium 1.8, Total Bilirubin 0.56, Direct Bilirubin 0.37 H, AST 28, ALT 7, Alkaline Phosphatase 271 H, Total Protein 7.2, Albumin 3.4, Globulin 3.8 06/10/24 19:42: Urine Color Yellow, Urine Clarity Turbid, Urine pH 6.0, Ur Specific [place] 1.015, Urine Protein 100 H, Urine Glucose (UA) Normal, Urine Ketones Negative, Urine Occult Blood 150 H, Urine Nitrite Positive H, Urine Bilirubin Negative, Urine Urobilinogen Normal, Ur Leukocyte Esterase 500 H, Urine RBC 0-5 SEEN, Urine WBC >100 SEEN, Ur Squamous Epith Cells 0-5 SEEN, Urine Bacteria 4+, Urine Mucus 0 SEEN 06/10/24 19:48: Lactic Acid < 1.0 Micro: Microbiology 06/10/24 17:10 Mucosa - Nose SARS-CoV-2, Influenza & RSV (PCR) - Final Radiography Diagnostic Testing: Radiology Impression Cervical Spine CT 06/10/24 17:04 IMPRESSION: Cervical spine: 1. No acute fracture or traumatic malalignment. 2. Multilevel degenerative changes, without high-grade canal stenosis or neural foraminal narrowing. 3. 19 mm right thyroid lobe low-attenuation nodule. Recommend further evaluation with nonemergent thyroid ultrasound. Thoracic spine: 1. No acute fracture or traumatic malalignment. 2. Postoperative changes thoracolumbar fusion. 3. Mixed lytic and sclerotic lesion involving T4 and T7 vertebral bodies as detailed above, concerning for metastasis. 4. Degenerative changes without high-grade canal stenosis or neural foraminal narrowing. Lumbar spine: 1. No acute fracture or traumatic malalignment. 2. Postoperative changes T10-L3 posterior fusion. 3. Diffuse sclerotic and lytic lesions throughout the lumbosacral spine, concerning for metastasis. 4. Degenerative changes most prominent at L3-L4 and L4-L5. Reading Location: [facility] Thoracic Spine CT 06/10/24 17:09 IMPRESSION: Cervical spine: 1. No acute fracture or traumatic malalignment. 2. Multilevel degenerative changes, without high-grade canal stenosis or neural foraminal narrowing. 3. 19 mm right thyroid lobe low-attenuation nodule. Recommend further evaluation with nonemergent thyroid ultrasound. Thoracic spine: 1. No acute fracture or traumatic malalignment. 2. Postoperative changes thoracolumbar fusion. 3. Mixed lytic and sclerotic lesion involving T4 and T7 vertebral bodies as detailed above, concerning for metastasis. 4. Degenerative changes without high-grade canal stenosis or neural foraminal narrowing. Lumbar spine: 1. No acute fracture or traumatic malalignment. 2. Postoperative changes T10-L3 posterior fusion. 3. Diffuse sclerotic and lytic lesions throughout the lumbosacral spine, concerning for metastasis. 4. Degenerative changes most prominent at L3-L4 and L4-L5. Reading Location: [facility] Brain CT 06/10/24 17:35 IMPRESSION: 1. No acute intracranial finding. 2. Findings of chronic microvascular ischemic changes and age-related changes. Reading Location: [facility] Lower Extremity CT 06/10/24 17:35 IMPRESSION: 1. Unchanged findings of pathologic avulsion fracture of the right ischial tuberosity. 2. Linear lucency along the superior cortical margin of the coccyx, not present on comparison pelvic CT, compatible with acute/subacute coccyx fracture. 3. Prominent right external iliac chain lymph nodes, of indeterminate clinical significance, however this was present on most remote CT abdomen pelvis comparison examination on 05/11/2023. Reading Location: [facility] Lumbar Spine CT 06/10/24 17:35 IMPRESSION: Cervical spine: 1. No acute fracture or traumatic malalignment. 2. Multilevel degenerative changes, without high-grade canal stenosis or neural foraminal narrowing. 3. 19 mm right thyroid lobe low-attenuation nodule. Recommend further evaluation with nonemergent thyroid ultrasound. Thoracic spine: 1. No acute fracture or traumatic malalignment. 2. Postoperative changes thoracolumbar fusion. 3. Mixed lytic and sclerotic lesion involving T4 and T7 vertebral bodies as detailed above, concerning for metastasis. 4. Degenerative changes without high-grade canal stenosis or neural foraminal narrowing. Lumbar spine: 1. No acute fracture or traumatic malalignment. 2. Postoperative changes T10-L3 posterior fusion. 3. Diffuse sclerotic and lytic lesions throughout the lumbosacral spine, concerning for metastasis. 4. Degenerative changes most prominent at L3-L4 and L4-L5. Reading Location: [facility] Physical Exam Const alert, oriented x3 and no apparent distress; Negative for average body habitus, healthy appearing or well nourished Constitutional Narrative: Older, white male, lying in bed, family at bedside, patient currently appears comfortable, does not appear toxic HEENT head/scalp atraumatic and moist oral mucous membranes HEENT Narrative: Mallampati 3-4, no thrush Head and Scalp: normocephalic Neck supple Neck Narrative: neck is short and thick Resp normal respiratory effort, no retractions, no use of accessory muscles and clear to auscultation bilaterally Auscultation: Negative for rales, rhonchi or wheezes Cardio regular rate, regular rhythm, S1 normal heart sound, S2 normal heart sound, no murmurs, no rub, no gallops and no clicks Cardio Narrative: distant 2/2 body habitus GI normal to inspection, nondistended, normoactive bowel sounds, soft to palpation and non-tender GI Narrative: large abdomen Extremity no clubbing, cyanosis or edema Extremity Narrative: pedal pulses are 2+ Neuro oriented x3, moves all extremities and no focal motor deficits Neuro Narrative: generalized weakness Speech: speech normal Psych Psych Narrative: affect is flat, mood slight depressed Assessment & Plan Assessment/Plan (1) Pathological fracture of pelvis: QUALIFIERS: Pathology associated with fracture: neoplastic disease Encounter type: sequela Qualified Code(s): M84.550S - Pathological fracture in neoplastic disease, pelvis, sequela (2) Ambulatory dysfunction: (3) Generalized weakness: (4) Chronic low back pain: QUALIFIERS: Back pain laterality: unspecified Sciatica presence: without sciatica Qualified Code(s): M54.50 - Low back pain, unspecified; G89.29 - Other chronic pain PLAN: Plan GN UTI -Previous Kleb UTI with resistance -continue Levaquin -await cx results -will treat as complicated UTI -per family has had worsening sx since on Ditropan Supratherapeutic INR -4.0 on presentation -no bleeding but given Vitamin K -Hemoglobin is stable -INR still supratherapeutic at 3.8 today however with no bleeding not going to reverse -Continue to hold Coumadin and recheck INR in a.m. -Could be somewhat labile with Levaquin Falls/generalized weakness/debility -Related to his injuries and overall general medical issues -Appears to be acute on chronic -PT/OT are following -Case management/social work therapist following -Referral has been sent for placement at discharge and I do feel patient would benefit from further rehab Right ischial tuberosity pathological avulsion fracture/subacute coccyx fracture -Stable -Weightbearing as tolerated Chronic anemia -Hemoglobin is stable -Monitor with supratherapeutic INR -No signs of bleeding Urinary incontinence -Patient with normal emptying per discussion with family -Was started on Ditropan for what sounds to be overflow incontinence -Patient reports she has had increased UTIs since initiating this medication -Will discontinue -Plan to DC Adams tomorrow and check bladder scan to see if we can leave Adams out -Patient has previously followed with urology as an outpatient-->Bianca Metastatic renal cell carcinoma -In process of initiating chemo -Follows with Dr. Perez in [place] -Patient needs to follow as previously recommended after discharge CAD/essential hypertension/hyperlipidemia -Continue home losartan and metoprolol -As needed hydralazine available for systolic pressures greater than 160 -Continue atorvastatin -Continue Plavix -Continue Ranexa -Continue isosorbide mononitrate -Previous stent placement in 2022 History of paroxysmal atrial fibrillation -Continue beta-kiki -Coumadin on hold due to supratherapeutic INR -Recheck INR in a.m. 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
[2024-06-11 08:09] LABS: Absolute Lymphocyte Count 0.63 X10^3/uL (0.83-4.51); Absolute Neutrophil Count 7.8 X10^3/uL (2.0-7.7); Basophil# 0.02 X10^3/uL; Basophil% 0.2 % (0-1); Eosinophils% 1.9 % (0-5); Hematocrit 26.7 % (40-54); Hemoglobin 8.4 g/dL (13.0-16.5); Lymphocyte # 0.63 X10^3/ul (0.83-4.51); Lymphocyte % 6.1 % (19-41); Mean Corp Hgb Conc 31.5 g/dL (32-36); Mean Corpuscular Hgb 29.4 pg (27.0-32.0); Mean Corpuscular Volume 93.4 fL (80-94); Monocyte% 15.5 % (0-10); NRBC Flagged by Analyzer 0 % (0-5); Neutrophil # 7.82 X10^3/uL (2.7-7.7); Neutrophil % 75.8 % (47-70); POSITIVE DIFFERENTIAL YES; Platelet Count 290 K/mm3 (150-450); RBC Distribution Width CV 17.3 % (11.6-14.6); RBC Distribution Width SD 58.8 fl (35.1-43.9); Red Blood Count 2.86 M/mm3 (4.6-6.2); White Blood Count 10.3 K/mm3 (4.4-11.0)
[2024-06-11 08:12] LABS: Differential Indicated SCAN CRITERIA MET
[2024-06-11] MEDS: Losartan Potassium 50 MG Tablet PO (09:06)
[2024-06-11] MEDS: Multivitamins,Therapeutic Tablet 1 TABLET PO (09:06)
[2024-06-11] MEDS: Pantoprazole Sodium 20 MG Tablet PO (09:07)
[2024-06-11] MEDS: Clopidogrel Bisulfate 75 MG Tablet PO (09:07)
[2024-06-11 09:41] LABS: International Normalized Ratio 3.8; Prothrombin Time (Protime)PT. 38.6 SECONDS (11.7-14.9)
--- NOTE | 2024-06-11 10:50 | CASEMGMT ---
Addendum entered by Kesha Mcgowan 06/11/24 11:46: Confirmed via careport, pt is active with [facility] for PT and OT services. Original Note: CHUY PENALOZA Readmission Note Previous Admission: 05/10/24-05/14/24 Diagnosis: Intractable R hip pain DC Disposition: TRF to [facility] Current Admission: Admitted on 06/10/24 Current Diagnosis: UTI with fall Pt with index admission for intractable R hip pain and planned to transfer to [facility]. No bed available and pt was subsequently trf'd to [facility]. Pt was dx with metastatic renal cancer with bony mets to R hip with resultant fracture. The fracture did not require OR. Pt then was trf'd to [facility] for rehab. CHUY PENALOZA into pt room, pt lying in bed in no distress with at bedside. Pt states he was dc'd from [facility] Sunday evening. He had a oncology appt at [facility] on Sunday and had HHC on Sunday. Pt feels pt was not quite ready to come home although he was ambulating the halls. She states it took a lot out of pt to go to appts and he could not participate in therapy with [facility] on Sunday d/t pain. [facility] is the CUSTOMER SERVICE DISPATCHER. Pt then fell at home due to weakness. Pt states that he would like to go to [facility]. Pt has not yet had therapy. Pt reported taking medications as ordered from [facility]. He states he was supposed to have had a urology appt today, PCP appt on Sunday and ortho appt on Sunday in [place]. Updated HANNAH on pt request. Provided pt with a list of SNF providers including quality and resource use data and consistent with the patient?s preferred geographic region, medical needs, and insurance network were provided from the CarePort Guide created by HANNAH. DC Plan: TBD pending therapy evals, likely SNF.
[2024-06-11 11:09] LABS: ALB/GLOB Ratio 0.9 RATIO (0.9-2.4); AST(SGOT) 24 U/L (<=37); Alanine Aminotransfer ALT/SGPT 6 U/L (<=46); Albumin, Serum 2.9 g/dL (3.4-4.8); Alkaline Phosphatase 251 U/L (40-129); Anion Gap 11 (5-15); BUN 28 mg/dL (4-19); BUN/Creat Ratio 12.2 RATIO (10-20); Calcium,Total 7.4 mg/dL (7.6-11.0); Carbon Dioxide 20.4 mmol/L (21.0-32.0); Chloride 107 mmol/L (98-108); Creatinine, Serum 2.29 mg/dL (0.70-1.20); EST Glomerular Filtration Rate 30 (>60); Estimated Creatinine Clearance 41.09 ml/min (50-250); Globulin 3.3 g/dL (2.2-4.2); Glucose 96 mg/dL (70-99); Phosphorus 3.2 mg/dL (2.7-4.5); Potassium 4.4 mmol/L (3.3-5.1); Protein, Total 6.2 g/dL (5.9-8.4); Sodium Level 138 mmol/L (133-145); Thyroid Stim Hormone (TSH) 0.146 uIU/mL (0.300-4.200)
--- NOTE | 2024-06-11 11:21 | CASEMGMT ---
Social Work Per physician, pt is requesting SNF placement. A list of SNF providers including quality and resource use data and consistent with the patient?s preferred geographic region, medical needs, and insurance network was created from the CarePort Guide. HANNAH provided list to RNCM who is seeing the pt. Per RNCM, pt is requesting to go to [place] at time of discharge for short term stay prior to returning home. DC horticultural nursery assistant updated and referral to be sent. LETTY Cherry
--- NOTE | 2024-06-11 13:52 | CASEMGMT ---
CHUY CM into pt room, pt has worked with therapy. Pt does still want to go to [facility] prior to returning home.
[2024-06-11] MEDS: proMETHazine 25 MG/ML Syringe IM (14:07)
[2024-06-11] MEDS: HYDROmorphone 1 MG/ML Syringe IV (14:10)
--- NOTE | 2024-06-11 14:31 | CASEMGMT ---
Addendum entered by Jayne Henry 06/12/24 07:52: [facility] has declined. SW updated. Original Note: Discharge Planning Referral sent to [facility]. Jayne Henry DC Planning Asst.
[2024-06-11] MEDS: Acetaminophen 500 MG Tablet 1000 MG PO ×2 (14:35→22:14)
[2024-06-11] MEDS: tiZANidine HCl 2 MG Tablet 4 MG PO ×2 (14:35→22:15)
--- NOTE | 2024-06-11 16:19 | NURSING ---
All documentation by nursing executive Victor Hugo Rutledge reviewed by nursing educator Kimmie NEUMANN, RN.
[2024-06-11] MEDS: levoFLOXacin IV 500 MG/100 ML BAG 100 MG IV (22:14)
[2024-06-12] VITALS (7 sets, daily range): BP systolic 111–124; BP diastolic 50–57; PULSE 52–66; RESP 16–18; TEMP 36.5–37; O2SAT 95–97; BMI 47.5
[2024-06-12] MEDS: tiZANidine HCl 2 MG Tablet 4 MG PO ×3 (05:18→22:05)
[2024-06-12] MEDS: Acetaminophen 500 MG Tablet 1000 MG PO ×3 (05:18→22:04)
[2024-06-12 06:39] LABS: Absolute Neutrophil Count 7.7 X10^3/uL (2.0-7.7); Basophil# 0.01 X10^3/uL; Basophil% 0.1 % (0-1); Eosinophil# 0.27 X10^3/uL; Eosinophils% 2.7 % (0-5); Hematocrit 26.1 % (40-54); Mean Corp Hgb Conc 30.7 g/dL (32-36); Mean Corpuscular Hgb 29.1 pg (27.0-32.0); Mean Corpuscular Volume 94.9 fL (80-94); Monocyte# 1.36 X10^3/uL; Monocyte% 13.6 % (0-10); NRBC Flagged by Analyzer 0 % (0-5); Neutrophil # 7.65 X10^3/uL (2.7-7.7); Neutrophil % 76.2 % (47-70); Platelet Count 298 K/mm3 (150-450); RBC Distribution Width CV 17.3 % (11.6-14.6); RBC Distribution Width SD 60.4 fl (35.1-43.9); Red Blood Count 2.75 M/mm3 (4.6-6.2)
[2024-06-12 06:58] LABS: Anion Gap 12 (5-15); BUN 34 mg/dL (4-19); BUN/Creat Ratio 13.1 RATIO (10-20); Calcium,Total 7.3 mg/dL (7.6-11.0); Chloride 108 mmol/L (98-108); Creatinine, Serum 2.63 mg/dL (0.70-1.20); EST Glomerular Filtration Rate 25 (>60); Estimated Creatinine Clearance 36.74 ml/min (50-250); Glucose 81 mg/dL (70-99); Potassium 4.5 mmol/L (3.3-5.1); Sodium Level 138 mmol/L (133-145)
--- NOTE | 2024-06-12 07:08 | PCM.PN.HOSP ---
Reason for Visit Reason for Visit: Weakness/falls Subjective Subjective No issues overnight. States he is feeling okay. Awaiting acceptance at a facility. He has a lot of questions when you are around and when you were sleeping Objective Data Objective Data Vital Signs: Vital Signs Temp Pulse Resp BP Pulse Ox O2 Del Method O2 Flow Rate 97.7 F L 52 L 16 116/54 L 97 Room Air 1 06/12/24 05:00 06/12/24 05:00 06/12/24 05:00 06/12/24 05:00 06/12/24 05:00 06/12/24 05:00 06/11/24 14:25 Oxygen Flow Rate (L/min) 1 Oxygen Delivery Method Room Air Weight: 146 kg Body Mass Index (BMI) 47.5 Intake & Output: Intake and Output for Last 24 Hours 06/10/24 06/11/24 06/12/24 23:59 23:59 23:59 Intake Total 1150 / 1150 4127.67 / 4127.67 1100 / 1100 Output Total 1260 / 1260 100 / 100 Balance 1150 / 1150 2867.67 / 2867.67 1000 / 1000 Medical Nutrition Assessment Dietitian: Malnutrition Criteria Met Start: 06/11/24 12:02 Freq: Status: Active Protocol: Document 06/11/24 12:47 SB (Rec: 06/11/24 12:47 SB [id number]) Nutrition Malnutrition Evidence of Yes Malnutrition Exists Malnutrition ( Acute Illness/Injury moderate): Evidenced By Suboptimal Energy Intake (Moderate),Weight Loss ( Moderate) Clinical Problem Acute Disease or Injury Related Malnutrition Etiology moderate related to inadequate oral intake and increased energy expenditure due to metastatic renal cancer Signs/Symptoms as evidenced by PO meeting <50% of estimated nutrition needs x 1 month and 5% unintentional weight loss x 1 month. Status Active Problem Recommendation Dietitian Adjust to liberal regular diet due to malnutrition. Recommendations/ Will order 240ml EPHP with breakfast and dinner, Changes prefers vanilla. Will discontinue 120ml ensure compact TID with medpass due to no longer being available in [facility] formulary. Will monitor weight trends. Lab / Micro Data 06/12/24 06:13 06/12/24 06:13 Labs: Laboratory Results - last 24 hr 06/11/24 07:52: WBC 10.3, RBC 2.86 L, Hgb 8.4 L, Hct 26.7 L, MCV 93.4, MCH 29.4, MCHC 31.5 L, RDW Std Deviation 58.8 H, RDW Coeff of Abdiel 17.3 H, Plt Count 290, MPV 10.0, Immature Gran % (Auto) 0.500, Neut % (Auto) 75.8 H, Lymph % (Auto) 6.1 L, [place] % (Auto) 15.5 H, Eos % (Auto) 1.9, Baso % (Auto) 0.2, Absolute Neuts (auto) 7.8 H, Absolute Lymphs (auto) 0.63 L, Nucleated RBC % 0, PT 38.6 H, INR 3.8, Sodium 138, Potassium 4.4, Chloride 107, Carbon Dioxide 20.4 L, Anion Gap 11, BUN 28 H, Creatinine 2.29 H, Estim Creat Clear Calc 41.09 L, Est GFR (MDRD) Non-Af 30 L, BUN/Creatinine Ratio 12.2, Glucose 96, Calcium 7.4 L, Phosphorus 3.2, Total Bilirubin 0.60, AST 24, ALT 6, Alkaline Phosphatase 251 H, Total Protein 6.2, Albumin 2.9 L, Globulin 3.3, Albumin/Globulin Ratio 0.9, TSH 0.146 L 06/12/24 06:13: WBC 10.0, RBC 2.75 L, Hgb 8.0 L, Hct 26.1 L, MCV 94.9 H, MCH 29.1, MCHC 30.7 L, RDW Std Deviation 60.4 H, RDW Coeff of Abdiel 17.3 H, Plt Count 298, MPV 10.0, Immature Gran % (Auto) 0.400, Neut % (Auto) 76.2 H, Lymph % (Auto) 7.0 L, [place] % (Auto) 13.6 H, Eos % (Auto) 2.7, Baso % (Auto) 0.1, Absolute Neuts (auto) 7.7, Absolute Lymphs (auto) 0.70 L, Nucleated RBC % 0, Sodium 138, Potassium 4.5, Chloride 108, Carbon Dioxide 18.0 L, Anion Gap 12, BUN 34 H, Creatinine 2.63 H, Estim Creat Clear Calc 36.74 L, Est GFR (MDRD) Non-Af 25 L, BUN/Creatinine Ratio 13.1, Glucose 81, Calcium 7.3 L, Phosphorus 3.0 Micro: Microbiology 06/10/24 19:42 Urine, Clean Catch Urine Culture - Preliminary GNR lactose drafting layout worker 06/10/24 17:10 Mucosa - Nose SARS-CoV-2, Influenza & RSV (PCR) - Final Physical Exam Const alert, oriented x3 and no apparent distress; Negative for average body habitus, healthy appearing or well nourished Constitutional Narrative: Older, white male, lying in bed, family at bedside, patient currently appears comfortable, does not appear toxic General Appearance: cooperative HEENT normocephalic, head/scalp atraumatic and moist oral mucous membranes HEENT Narrative: Mallampati 4, no thrush Neck Neck Narrative: neck is short and thick Resp normal respiratory effort, no retractions, no use of accessory muscles and clear to auscultation bilaterally Auscultation: Negative for rales, rhonchi or wheezes Cardio regular rate, regular rhythm, S1 normal heart sound, S2 normal heart sound, no murmurs, no rub, no gallops and no clicks Cardio Narrative: distant 2/2 body habitus GI normal to inspection, nondistended, normoactive bowel sounds, soft to palpation and non-tender GI Narrative: large abdomen Extremity no clubbing, cyanosis or edema Extremity Narrative: pedal pulses are 2+ Skin Skin Narrative: Worked well it worked though Neuro oriented x3, moves all extremities and no focal motor deficits Neuro Narrative: generalized weakness Speech: speech normal Psych affect normal Psych Narrative: affect is flat, mood is much jig and fixture repairer today Assessment & Plan Assessment/Plan (1) Pathological fracture of pelvis: QUALIFIERS: Pathology associated with fracture: neoplastic disease Encounter type: sequela Qualified Code(s): M84.550S - Pathological fracture in neoplastic disease, pelvis, sequela (2) Ambulatory dysfunction: (3) Generalized weakness: (4) Chronic low back pain: QUALIFIERS: Back pain laterality: unspecified Sciatica presence: without sciatica Qualified Code(s): M54.50 - Low back pain, unspecified; G89.29 - Other chronic pain PLAN: Plan GNR-LF UTI -Previous Kleb UTI with resistance -continue Levaquin -Culture results are still pending -will treat as complicated UTI -per family has had worsening sx since on Ditropan Acute anemia -Hemoglobin is down to 8 -No signs of bleeding -Will continue to monitor with repeat CBC in a.m. -INR was supratherapeutic on presentation Supratherapeutic INR -4.0 on presentation and was given vitamin K at that time 2.5 mg did you talk to Sergio today -Hemoglobin is stable -INR is down to 2.2 today -Restart home Coumadin Falls/generalized weakness/debility -Related to his injuries and overall general medical issues -Appears to be acute on chronic -PT/OT are following and plan is discharge to skilled facility once we find a place for him to go you probably tolerated better because you were sedated -Case management/psych social worker following -Referral has been sent for placement at discharge and I do feel patient would benefit from further rehab Right ischial tuberosity pathological avulsion fracture/subacute coccyx fracture -Stable -Weightbearing as tolerated Chronic anemia -Hemoglobin is stable -Monitor with supratherapeutic INR -No signs of bleeding Urinary incontinence -Patient with normal emptying per discussion with family -Ditropan was discontinued -Patient reports she has had increased UTIs since initiating this medication -DC Adams and bladder scan -Patient has previously followed with urology as an outpatient-->Bianca Metastatic renal cell carcinoma -In process of initiating chemo -Follows with Dr. Perez in [place] -Patient needs to follow as previously recommended after discharge CAD/essential hypertension/hyperlipidemia -Continue home losartan and metoprolol -As needed hydralazine available for systolic pressures greater than 160 -Continue atorvastatin -Continue Plavix -Continue Ranexa -Continue isosorbide mononitrate -Previous stent placement in 2022 History of paroxysmal atrial fibrillation -Continue beta-kiki -Coumadin on hold due to supratherapeutic INR -Recheck INR in a.m. 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 Awaiting acceptance. Charges/Coding Visit Charges Inpatient E&M: 09361 Subs Hosp L2
[2024-06-12 07:32] LABS: International Normalized Ratio 2.2
[2024-06-12] MEDS: Lactobacillis Acidophilus 1 CAP PO ×4 (09:01→22:04)
[2024-06-12] MEDS: Isosorbide Mononitrate 60 MG Tablet PO ×2 (09:01→22:05)
[2024-06-12] MEDS: Clopidogrel Bisulfate 75 MG Tablet PO (09:01)
[2024-06-12] MEDS: Losartan Potassium 50 MG Tablet PO (09:01)
[2024-06-12] MEDS: Multivitamins,Therapeutic Tablet 1 TABLET PO (09:01)
[2024-06-12] MEDS: Pantoprazole Sodium 20 MG Tablet PO (09:02)
[2024-06-12] MEDS: Metoprolol(XL)Succ 50 MG Tablet PO ×2 (09:02→22:06)
[2024-06-12] MEDS: Ranolazine 500 MG Tablet PO ×2 (09:02→22:09)
[2024-06-12] MEDS: oxyCODONE 5 MG Tablet PO ×3 (09:06→22:24)
--- NOTE | 2024-06-12 11:08 | NURSING ---
f/c removed at this time, pt tolerated well, 250 of christian urine w/ sediment
--- NOTE | 2024-06-12 11:49 | CASEMGMT ---
Discharge Planning Updated pt that [facility] has declined. He would like a referral made to 1) TCU 2) [facility]. SW updated. Jayne Henry DC Planning Asst.
--- NOTE | 2024-06-12 13:37 | CASEMGMT ---
Social Work TCU is unable to accept pt. SW requested DC assistant production editor send referral to [facility]. LETTY Figueredo
--- NOTE | 2024-06-12 14:05 | CASEMGMT ---
Addendum entered by Jayne Henry 06/12/24 14:45: [facility] has declined. SW updated. Jayne Henry DC Planning Asst. Original Note: Discharge Planning Referral sent to [facility]. Jayne Henry DC Planning Asst.
--- NOTE | 2024-06-12 15:09 | CASEMGMT ---
Discharge Planning Pt notified that [facility] has declined. He asked me to reach out to his for additional choices. Call placed to pts who wants to wait until her granddaughter gets home to make a decision. given my number and asked to leave a msg. SW updated. Jayne Henry DC Planning Asst.
--- NOTE | 2024-06-12 16:18 | CASEMGMT ---
Discharge Planning Pts requested referral to [facility], and [facility]. [facility] accepted and [facility] declined. Awaiting response from [facility]. Jayne Henry DC Planning Asst.
[2024-06-12] MEDS: Atorvastatin Calcium 80 MG Tablet PO (22:04)
[2024-06-12] MEDS: Tamsulosin HCl 0.4 MG Capsule PO (22:05)
[2024-06-12] MEDS: levoFLOXacin IV 500 MG/100 ML BAG 100 MG IV (22:06)
[2024-06-12] MEDS: Mirtazapine 30 MG Tablet PO (22:06)
[2024-06-13] VITALS (8 sets, daily range): BP systolic 112–136; BP diastolic 51–66; PULSE 50–58; RESP 18–20; TEMP 36.4–36.9; O2SAT 97–99; BMI 46.7
[2024-06-13] MEDS: oxyCODONE 5 MG Tablet PO ×3 (05:17→22:08)
[2024-06-13] MEDS: Nystatin Powder 15gm Bottle 1 APPLIC TOPICAL ×3 (05:18→21:59)
[2024-06-13] MEDS: Acetaminophen 500 MG Tablet 1000 MG PO ×3 (05:18→21:57)
[2024-06-13] MEDS: tiZANidine HCl 2 MG Tablet 4 MG PO ×3 (05:18→21:57)
[2024-06-13 08:06] LABS: Absolute Lymphocyte Count 0.78 X10^3/uL (0.83-4.51); Basophil# 0.01 X10^3/uL; Basophil% 0.1 % (0-1); Eosinophil# 0.31 X10^3/uL; Eosinophils% 3.8 % (0-5); Hematocrit 26.7 % (40-54); Hemoglobin 8.1 g/dL (13.0-16.5); Lymphocyte # 0.78 X10^3/ul (0.83-4.51); Lymphocyte % 9.5 % (19-41); Mean Corp Hgb Conc 30.3 g/dL (32-36); Mean Corpuscular Hgb 28.9 pg (27.0-32.0); Mean Corpuscular Volume 95.4 fL (80-94); Mean Platelet Vol. 10.5 fl (6.2-12.0); Monocyte% 12.2 % (0-10); NRBC Flagged by Analyzer 0 % (0-5); Neutrophil # 6.04 X10^3/uL (2.7-7.7); Neutrophil % 73.8 % (47-70); Platelet Count 302 K/mm3 (150-450); RBC Distribution Width CV 17.2 % (11.6-14.6); RBC Distribution Width SD 60.3 fl (35.1-43.9); White Blood Count 8.2 K/mm3 (4.4-11.0)
[2024-06-13] MEDS: 0.9% Saline Lock 10 ML Syringe IV ×2 (08:30→21:56)
[2024-06-13] MEDS: Lactobacillis Acidophilus 1 CAP PO ×4 (08:31→21:58)
[2024-06-13] MEDS: Ranolazine 500 MG Tablet PO ×2 (08:31→21:57)
[2024-06-13] MEDS: Citalopram 20 MG Tablet PO (08:31)
[2024-06-13] MEDS: Clopidogrel Bisulfate 75 MG Tablet PO (08:31)
[2024-06-13] MEDS: HYDROmorphone 1 MG/ML Syringe IV (08:31)
[2024-06-13] MEDS: Pantoprazole Sodium 20 MG Tablet PO (08:31)
[2024-06-13] MEDS: Menthol/Lanolin/Calamine/Znox 113 GM Tube 1 APPLIC TOPICAL ×2 (08:31→21:59)
[2024-06-13] MEDS: Multivitamins,Therapeutic Tablet 1 TABLET PO (08:31)
[2024-06-13] MEDS: Isosorbide Mononitrate 60 MG Tablet PO ×2 (08:31→21:59)
[2024-06-13 08:33] LABS: Prothrombin Time (Protime)PT. 22.6 SECONDS (11.7-14.9)
[2024-06-13 09:06] LABS: Anion Gap 13 (5-15); BUN 33 mg/dL (4-19); BUN/Creat Ratio 14.8 RATIO (10-20); Carbon Dioxide 16.5 mmol/L (21.0-32.0); Chloride 107 mmol/L (98-108); Creatinine, Serum 2.22 mg/dL (0.70-1.20); EST Glomerular Filtration Rate 31 (>60); Estimated Creatinine Clearance 43.07 ml/min (50-250); Glucose 90 mg/dL (70-99); Potassium 4.2 mmol/L (3.3-5.1); Sodium Level 137 mmol/L (133-145)
[2024-06-13] MEDS: Metoprolol(XL)Succ 50 MG Tablet PO ×2 (10:13→22:00)
[2024-06-13] MEDS: Losartan Potassium 50 MG Tablet PO (10:13)
--- NOTE | 2024-06-13 16:56 | CASEMGMT ---
Call placed to [facility] to check on status of referral. She had gone home for the weekend and per spa receptionist, referrals are not addressed on the weekend. SW updated. Jayne Henry DC Planning Asst.
--- NOTE | 2024-06-13 17:04 | CASEMGMT ---
Discharge Planning Spoke with pt to give him an updated on snf referrals. Pt is worried about his oncologist getting approval for treatments and possibly having to wait until he is discharged from snf. He is considering returning home with HH. Pt would like to speak to his radha and requests that someone follow up with him in the morning. HANNAH and CHUY CM updated. Jayne Henry DC Planning Asst.
--- NOTE | 2024-06-13 17:07 | PCM.PN.HOSP ---
Reason for Visit Reason for Visit: Weakness/falls Subjective Subjective No issues overnight. We did remove his Adams yesterday and he has been maintained on his Flomax without any interruption and we stopped his Ditropan however he is having urinary retention. Will replace his Adams and have him follow-up with urology as an outpatient after discharge. Objective Data Objective Data Vital Signs: Vital Signs Temp Pulse Resp BP Pulse Ox O2 Del Method O2 Flow Rate 98.4 F 54 L 20 H 115/65 98 Room Air 1 06/13/24 14:06/13/24 14:06/13/24 14:06/13/24 14:06/13/24 14:06/13/24 14:06/11/24 14: Oxygen Flow Rate (L/min) 1 Oxygen Delivery Method Room Air Weight: 143.4 kg Body Mass Index (BMI) 46.7 Intake & Output: Intake and Output for Last 24 Hours 06/11/24 06/12/24 06/13/24 23:59 23:59 23:59 Intake Total 4127.67 / 4127.67 2200 / 2200 Output Total 1260 / 1260 200 / 200 900 / 900 Balance 2867.67 / 2867.67 1999 / 1999 -900 / -900 Medical Nutrition Assessment Dietitian: Malnutrition Criteria Met Start: 06/11/24 12:02 Freq: Status: Active Protocol: Document 06/11/24 12:47 SB (Rec: 06/11/24 12:47 SB [id number]) Nutrition Malnutrition Evidence of Yes Malnutrition Exists Malnutrition ( Acute Illness/Injury moderate): Evidenced By Suboptimal Energy Intake (Moderate),Weight Loss ( Moderate) Clinical Problem Acute Disease or Injury Related Malnutrition Etiology moderate related to inadequate oral intake and increased energy expenditure due to metastatic renal cancer Signs/Symptoms as evidenced by PO meeting <50% of estimated nutrition needs x 1 month and 5% unintentional weight loss x 1 month. Status Active Problem Recommendation Dietitian Adjust to liberal regular diet due to malnutrition. Recommendations/ Will order 240ml EPHP with breakfast and dinner, Changes prefers vanilla. Will discontinue 120ml ensure compact TID with medpass due to no longer being available in [facility] formulary. Will monitor weight trends. Lab / Micro Data 06/13/24 06:40 06/13/24 06:40 Labs: Laboratory Results - last 24 hr 06/13/24 06:40: WBC 8.2, RBC 2.80 L, Hgb 8.1 L, Hct 26.7 L, MCV 95.4 H, MCH 28.9, MCHC 30.3 L, RDW Std Deviation 60.3 H, RDW Coeff of Abdiel 17.2 H, Plt Count 302, MPV 10.5, Immature Gran % (Auto) 0.600, Neut % (Auto) 73.8 H, Lymph % (Auto) 9.5 L, [place] % (Auto) 12.2 H, Eos % (Auto) 3.8, Baso % (Auto) 0.1, Absolute Neuts (auto) 6.0, Absolute Lymphs (auto) 0.78 L, Nucleated RBC % 0, Sodium 137, Potassium 4.2, Chloride 107, Carbon Dioxide 16.5 L, Anion Gap 13, BUN 33 H, Creatinine 2.22 H, Estim Creat Clear Calc 43.07 L, Est GFR (MDRD) Non-Af 31 L, BUN/Creatinine Ratio 14.8, Glucose 90, Calcium 7.0 L 06/13/24 08:02: PT 22.6 H, INR 2.0 Micro: Microbiology 06/10/24 19:42 Urine, Clean Catch Urine Culture - Final ESBL Klebsiella pneumoniae pne 06/10/24 17:10 Mucosa - Nose SARS-CoV-2, Influenza & RSV (PCR) - Final Physical Exam Const alert, oriented x3 and no apparent distress; Negative for average body habitus, healthy appearing or well nourished Constitutional Narrative: Older, white male, lying in bed, family at bedside, patient currently appears comfortable, does not appear toxic General Appearance: cooperative HEENT normocephalic, head/scalp atraumatic and moist oral mucous membranes HEENT Narrative: Mallampati 3-4, no thrush Neck Neck Narrative: neck is short and thick Resp normal respiratory effort, no retractions, no use of accessory muscles and clear to auscultation bilaterally Auscultation: Negative for rales, rhonchi or wheezes Cardio regular rate, regular rhythm, S1 normal heart sound, S2 normal heart sound, no murmurs, no rub, no gallops and no clicks Cardio Narrative: distant 2/2 body habitus GI normal to inspection, nondistended, normoactive bowel sounds, soft to palpation and non-tender GI Narrative: large protuberant abdomen Extremity no clubbing, cyanosis or edema Extremity Narrative: pedal pulses are 2+ Skin Skin Narrative: Worked well it worked though Neuro oriented x3, moves all extremities and no focal motor deficits Neuro Narrative: generalized weakness Sensorium / Orientation: oriented to time Speech: speech normal Psych affect normal Psych Narrative: Pleasant, interacts appropriately Assessment & Plan Assessment/Plan (1) Pathological fracture of pelvis: QUALIFIERS: Pathology associated with fracture: neoplastic disease Encounter type: sequela Qualified Code(s): M84.550S - Pathological fracture in neoplastic disease, pelvis, sequela (2) Ambulatory dysfunction: (3) Generalized weakness: (4) Chronic low back pain: QUALIFIERS: Back pain laterality: unspecified Sciatica presence: without sciatica Qualified Code(s): M54.50 - Low back pain, unspecified; G89.29 - Other chronic pain PLAN: Plan ESBL Klebsiella UTI -continue Levaquin and his sensitivities are good for Levaquin -And patient has got up to go with Adams at discharge -will treat as complicated UTI -per family has had worsening sx since on Ditropan Acute anemia -Hemoglobin is down to 8 -No signs of bleeding -Will continue to monitor with repeat CBC in a.m. -INR was supratherapeutic on presentation Supratherapeutic INR -4.0 on presentation and was given vitamin K at that time 2.5 mg did you talk to Sergio today -Hemoglobin is stable -INR is down to 2.0 today -Continue home Coumadin Falls/generalized weakness/debility -Related to his injuries and overall general medical issues -Appears to be acute on chronic -PT/OT are following and plan is discharge to skilled facility once we find a place for him to go you probably tolerated better because you were sedated -Case management/social services assistant following -Referral has been sent for placement at discharge and I do feel patient would benefit from further rehab Right ischial tuberosity pathological avulsion fracture/subacute coccyx fracture -Stable -Weightbearing as tolerated Chronic anemia -Hemoglobin is stable -Monitor with supratherapeutic INR -No signs of bleeding Urinary incontinence/retention -Patient with normal emptying per discussion with family prior to admission -Ditropan was discontinued but patient is having retention still -Will replace Adams and discharge with and have a follow-up with Dr. Valenzuela after discharge Metastatic renal cell carcinoma -In process of initiating chemo -Follows with Dr. Perez in [place] -Patient needs to follow as previously recommended after discharge CAD/essential hypertension/hyperlipidemia -Continue home losartan and metoprolol -As needed hydralazine available for systolic pressures greater than 160 -Continue atorvastatin -Continue Plavix -Continue Ranexa -Continue isosorbide mononitrate -Previous stent placement in 2022 History of paroxysmal atrial fibrillation -Continue beta-kiki -Patient is back on his Coumadin and INR is therapeutic at this time -Recheck INR in a.m. BPH with obstruction -Continue home Flomax -Patient is having retention so Adams replaced and will need outpatient urology follow-up History of gout -No signs of acute flare and patient's not on any suppression medication GERD -Continue home PPI -Patient also has history of Schatzki's ring found on EGD from 2023 [facility] -Continue CPAP -Family has brought in home unit Depression/anxiety -Continue home antidepressants MO -BMI 46.7 -recommend wgt loss DVT prophylaxis -INR is now therapeutic -Continue to follow Code Status -Full Code Disposition: Patient is medically ready for discharge as of 06/12/2024. Awaiting acceptance. Charges/Coding Visit Charges Inpatient E&M: 45649 Subs Hosp L2
--- NOTE | 2024-06-13 18:10 | CASEMGMT ---
[employer] [facility] has declined patient. [facility] has not yet accepted pt due to concerns with a medication pt is receiving and will not have a determination until Sunday. DC veterinary assistant technician informed pt and pt is discussing returning home with [facility]. SW to follow up tomorrow. Physician notified. LETTY Cherry
[2024-06-13] MEDS: levoFLOXacin IV 500 MG/100 ML BAG 100 MG IV (21:56)
[2024-06-13] MEDS: Mirtazapine 30 MG Tablet PO (21:57)
[2024-06-13] MEDS: Tamsulosin HCl 0.4 MG Capsule PO (21:58)
[2024-06-13] MEDS: Atorvastatin Calcium 80 MG Tablet PO (21:58)
[2024-06-14] VITALS (9 sets, daily range): BP systolic 124–144; BP diastolic 42–64; PULSE 50–67; RESP 16–20; TEMP 36.4–37.1; O2SAT 94–100; BMI 46.7
[2024-06-14] MEDS: oxyCODONE 5 MG Tablet PO ×2 (03:25→12:48)
[2024-06-14] MEDS: Acetaminophen 500 MG Tablet 1000 MG PO ×3 (03:30→21:34)
[2024-06-14] MEDS: tiZANidine HCl 2 MG Tablet 4 MG PO ×3 (03:31→21:34)
[2024-06-14 07:28] LABS: Hematocrit 25.3 % (40-54); Hemoglobin 7.9 g/dL (13.0-16.5); Mean Corp Hgb Conc 31.2 g/dL (32-36); Mean Corpuscular Hgb 29.2 pg (27.0-32.0); Mean Corpuscular Volume 93.4 fL (80-94); Mean Platelet Vol. 10.3 fl (6.2-12.0); Platelet Count 326 K/mm3 (150-450); RBC Distribution Width CV 17.2 % (11.6-14.6); RBC Distribution Width SD 59.1 fl (35.1-43.9); Red Blood Count 2.71 M/mm3 (4.6-6.2); White Blood Count 7.4 K/mm3 (4.4-11.0)
[2024-06-14 07:45] LABS: Anion Gap 11 (5-15); BUN 28 mg/dL (4-19); BUN/Creat Ratio 14.6 RATIO (10-20); Calcium,Total 6.8 mg/dL (7.6-11.0); Carbon Dioxide 18.7 mmol/L (21.0-32.0); Chloride 110 mmol/L (98-108); Creatinine, Serum 1.92 mg/dL (0.70-1.20); EST Glomerular Filtration Rate 37 (>60); Estimated Creatinine Clearance 49.86 ml/min (50-250); Glucose 106 mg/dL (70-99); Potassium 4.4 mmol/L (3.3-5.1); Sodium Level 139 mmol/L (133-145)
[2024-06-14 09:32] LABS: International Normalized Ratio 2.5; Prothrombin Time (Protime)PT. 27.1 SECONDS (11.7-14.9)
[2024-06-14] MEDS: Furosemide 40 MG/4 ML Vial IV (09:35)
[2024-06-14] MEDS: 0.9% Saline Lock 10 ML Syringe IV ×2 (09:35→21:35)
[2024-06-14] MEDS: Lactobacillis Acidophilus 1 CAP PO ×4 (10:25→21:34)
[2024-06-14] MEDS: Losartan Potassium 50 MG Tablet PO (10:26)
[2024-06-14] MEDS: Pantoprazole Sodium 20 MG Tablet PO (10:26)
[2024-06-14] MEDS: Multivitamins,Therapeutic Tablet 1 TABLET PO (10:26)
[2024-06-14] MEDS: Menthol/Lanolin/Calamine/Znox 113 GM Tube 1 APPLIC TOPICAL ×2 (10:27→21:34)
[2024-06-14] MEDS: Citalopram 20 MG Tablet PO (10:27)
[2024-06-14] MEDS: Clopidogrel Bisulfate 75 MG Tablet PO (10:29)
[2024-06-14] MEDS: Ranolazine 500 MG Tablet PO ×2 (10:29→21:34)
[2024-06-14] MEDS: Metoprolol(XL)Succ 50 MG Tablet PO ×2 (10:29→21:34)
[2024-06-14] MEDS: Isosorbide Mononitrate 60 MG Tablet PO ×2 (10:30→21:33)
[2024-06-14] MEDS: Nystatin Powder 15gm Bottle 1 APPLIC TOPICAL ×2 (10:31→21:38)
--- NOTE | 2024-06-14 11:59 | CASEMGMT ---
Addendum entered by Kesha Mcgowan 06/14/24 15:15: Updated [facility] of dc plan change via careport. Addendum entered by Kesha Mcgowan 06/14/24 13:44: Charge nurse notified that pt was not aware pt was going home. CHUY PENALOZA into pt room, pt present. Evidently pt did not have a discussion with his regarding going home with [facility]. Pt agreeable to wait for [facility]. Pt aware they have not fully accepted yet. Updated SW and hospitalist. Original Note: CHUY PENALOZA into pt room, pt lying in bed with lab present. Pt states he prefers to now go home with his [facility] instead of waiting to potentially go to [facility]. Pt aware that CHUY PENALOZA will update [facility] and they will be in touch with him to set up a time to come out. [facility], green sheet on chart to fax dc instructions when available. Updated hospitalist.
[2024-06-14 12:17] LABS: Hemoglobin 9.1 g/dL (13.0-16.5)
--- NOTE | 2024-06-14 13:53 | PCM.PN.HOSP ---
Reason for Visit Reason for Visit: Weakness/falls Subjective Subjective No issues overnight. Patient states he is feeling okay. really wants him to go to nursing facility for more rehab and we have not yet found a facility to accept him. Case management is still working on this. Objective Data Objective Data Vital Signs: Vital Signs Temp Pulse Resp BP Pulse Ox O2 Del Method O2 Flow Rate 97.5 F L 58 L 16 144/46 H 100 Room Air 1 06/14/24 10:22 06/14/24 10:29 06/14/24 10:22 06/14/24 10:29 06/14/24 10:22 06/14/24 10:22 06/11/24 14:25 Oxygen Flow Rate (L/min) 1 Oxygen Delivery Method Room Air Weight: 143.7 kg Body Mass Index (BMI) 46.7 Intake & Output: Intake and Output for Last 24 Hours 06/12/24 06/13/24 06/14/24 23:59 23:59 23:59 Intake Total 2200 / 2200 100 / 100 350 / 350 Output Total 200 / 200 1300 / 1300 1100 / 1100 Balance 2000 / 2000 -1200 / -1200 -750 / -750 Medical Nutrition Assessment Dietitian: Malnutrition Criteria Met Start: 06/11/24 12:02 Freq: Status: Active Protocol: Document 06/11/24 12:47 SB (Rec: 06/11/24 12:47 SB [id number]) Nutrition Malnutrition Evidence of Yes Malnutrition Exists Malnutrition ( Acute Illness/Injury moderate): Evidenced By Suboptimal Energy Intake (Moderate),Weight Loss ( Moderate) Clinical Problem Acute Disease or Injury Related Malnutrition Etiology moderate related to inadequate oral intake and increased energy expenditure due to metastatic renal cancer Signs/Symptoms as evidenced by PO meeting <50% of estimated nutrition needs x 1 month and 5% unintentional weight loss x 1 month. Status Active Problem Recommendation Dietitian Adjust to liberal regular diet due to malnutrition. Recommendations/ Will order 240ml EPHP with breakfast and dinner, Changes prefers vanilla. Will discontinue 120ml ensure compact TID with medpass due to no longer being available in [facility] formulary. Will monitor weight trends. Lab / Micro Data 06/14/24 12:05 06/14/24 06:23 Labs: Laboratory Results - last 24 hr 06/14/24 06:23: WBC 7.4, RBC 2.71 L, Hgb 7.9 L, Hct 25.3 L, MCV 93.4, MCH 29.2, MCHC 31.2 L, RDW Std Deviation 59.1 H, RDW Coeff of Abdiel 17.2 H, Plt Count 326, MPV 10.3, Sodium 139, Potassium 4.4, Chloride 110 H, Carbon Dioxide 18.7 L, Anion Gap 11, BUN 28 H, Creatinine 1.92 H, Estim Creat Clear Calc 49.86 L, Est GFR (MDRD) Non-Af 37 L, BUN/Creatinine Ratio 14.6, Glucose 106 H, Calcium 6.8 L 06/14/24 09:00: PT 27.1 H, INR 2.5 06/14/24 12:05: Hgb 9.1 L Micro: Microbiology 06/10/24 19:42 Urine, Clean Catch Urine Culture - Final ESBL Klebsiella pneumoniae pne 06/10/24 17:10 Mucosa - Nose SARS-CoV-2, Influenza & RSV (PCR) - Final Physical Exam Const alert, oriented x3 and no apparent distress; Negative for average body habitus, healthy appearing or well nourished Constitutional Narrative: Older, white male, lying in bed, patient currently appears comfortable, does not appear toxic General Appearance: cooperative HEENT normocephalic, head/scalp atraumatic, hearing grossly normal bilaterally and moist oral mucous membranes HEENT Narrative: Mallampati 3-4, no rub thrush Neck Neck Narrative: neck is short and thick Resp normal respiratory effort, no retractions, no use of accessory muscles and clear to auscultation bilaterally Resp Narrative: Distant due to body habitus Auscultation: Negative for rales, rhonchi or wheezes Cardio regular rate, regular rhythm, S1 normal heart sound, S2 normal heart sound, no murmurs, no rub, no gallops and no clicks Cardio Narrative: distant 2/2 body habitus GI normal to inspection, nondistended, normoactive bowel sounds, soft to palpation and non-tender GI Narrative: large protuberant abdomen Extremity no clubbing, cyanosis or edema Extremity Narrative: pedal pulses are 2+ Neuro oriented x3, moves all extremities and no focal motor deficits Neuro Narrative: generalized weakness Speech: speech normal Psych affect normal Psych Narrative: Pleasant, interacts appropriately Assessment & Plan Assessment/Plan (1) Pathological fracture of pelvis: QUALIFIERS: Pathology associated with fracture: neoplastic disease Encounter type: sequela Qualified Code(s): M84.550S - Pathological fracture in neoplastic disease, pelvis, sequela (2) Ambulatory dysfunction: (3) Generalized weakness: (4) Chronic low back pain: QUALIFIERS: Back pain laterality: unspecified Sciatica presence: without sciatica Qualified Code(s): M54.50 - Low back pain, unspecified; G89.29 - Other chronic pain PLAN: Plan ESBL Klebsiella UTI-complicated -Continue Levaquin day for 14 -Will need Adams at discharge -will treat as complicated UTI -per family has had worsening sx since on Ditropan Acute on chronic anemia -Hemoglobin is stable -No signs of bleeding -Will continue to monitor with repeat CBC in a.m. Supratherapeutic INR -4.0 on presentation and was given vitamin K at that time 2.5 mg -Hemoglobin is stable -INR is 2.5 today -Continue home Coumadin Falls/generalized weakness/debility -Related to his injuries and overall general medical issues -Appears to be acute on chronic -PT/OT are following and plan is discharge to skilled facility once we find a place for him to go you probably tolerated better because you were sedated -Case management/social worker delinquency prevention following -Still working on finding an accepting facility but family is insistent that he needs rehab as he has had difficulty since he came home from acute rehab Right ischial tuberosity pathological avulsion fracture/subacute coccyx fracture -Stable -Weightbearing as tolerated Urinary incontinence/retention -Patient with normal emptying per discussion with family prior to admission -Stop Ditropan at discharge -Will replace Adams and discharge with and have a follow-up with Dr. Valenzuela after discharge Metastatic renal cell carcinoma -In process of initiating chemo -Follows with Dr. Perez in [place] -Patient needs to follow as previously recommended after discharge CAD/essential hypertension/hyperlipidemia -Continue home losartan and metoprolol -As needed hydralazine available for systolic pressures greater than 160 -Continue atorvastatin -Continue Plavix -Continue Ranexa -Continue isosorbide mononitrate -Previous stent placement in 2022 History of paroxysmal atrial fibrillation -Continue beta-kiki -Continue Coumadin and monitor INR with a goal 2-3 -Recheck INR in a.m. BPH with obstruction -Continue home Flomax -Patient is having retention so Adams replaced and will need outpatient urology follow-up History of gout -No signs of acute flare and patient's not on any suppression medication GERD -Continue home PPI -Patient also has history of Schatzki's ring found on EGD from 2023 [facility] -Continue CPAP -Family has brought in home unit Depression/anxiety -Continue home antidepressants MO -BMI 46.8 -recommend wgt loss DVT prophylaxis -INR is therapeutic Code Status -Full Code Disposition: Patient is medically ready for discharge as of 06/12/2024. Awaiting acceptance to a facility. Charges/Coding Visit Charges Inpatient E&M: 10024 Subs Hosp L2
--- NOTE | 2024-06-14 21:10 | EKG12_ITS ---
Test Reason : CP Blood Pressure : */* mmHG Vent. Rate : 56 BPM Atrial Rate : * BPM P-R Int : * ms QRS Dur : 86 ms QT Int : 462 ms P-R-T Axes : * 32 28 degrees QTcB Int : 445 ms Sinus bradycardia Low voltage QRS Abnormal ECG When compared with ECG of 04-Jan-2024 17:59, Confirmed by Abdi Gasca ([id number]), scientific publications editor SAMIR RAMIREZ ([id number]) on 06/16/2024 1:23:45 PM Referred By: RAMÍREZ Confirmed By: Abdi Gasca
[2024-06-14] MEDS: HYDROmorphone 1 MG/ML Syringe IV (21:16)
[2024-06-14] MEDS: Atorvastatin Calcium 80 MG Tablet PO (21:33)
[2024-06-14] MEDS: Mirtazapine 30 MG Tablet PO (21:33)
[2024-06-14] MEDS: Tamsulosin HCl 0.4 MG Capsule PO (21:33)
[2024-06-14] MEDS: levoFLOXacin IV 500 MG/100 ML BAG 100 MG IV (21:34)
[2024-06-14] MEDS: Morphine 2 MG/ML Syringe IV (23:09)
--- NOTE | 2024-06-14 23:22 | CPS ---
Patient set up with own PAP machine brought in from home for the night.
[2024-06-14] MEDS: Nitroglycerin Oint 1 INCH PACKET TD (23:36)
[2024-06-15] VITALS (13 sets, daily range): BP systolic 108–134; BP diastolic 49–89; PULSE 47–60; RESP 18; TEMP 36.4–37.3; O2SAT 95–98; BMI 46.7
[2024-06-15] MEDS: Acetaminophen 500 MG Tablet 1000 MG PO ×3 (05:33→21:51)
[2024-06-15] MEDS: Nitroglycerin Oint 1 INCH PACKET TD (05:33)
[2024-06-15] MEDS: tiZANidine HCl 2 MG Tablet 4 MG PO ×3 (05:33→21:50)
--- NOTE | 2024-06-15 06:38 | PCM.PN.HOSP ---
Reason for Visit Reason for Visit: Generalized weakness/falls Subjective Subjective Patient evidently had some chest pain overnight. Was central and radiated some to his left arm. Patient does have 1 previous stent from 2.5 years ago. Denies any symptoms at the time of my evaluation. Had no other symptoms that were congruent with the chest pain including nausea, vomiting, diaphoresis or shortness of breath. Only experienced isolated chest pain with radiation to the left arm. Objective Data Objective Data Vital Signs: Vital Signs Temp Pulse Resp BP Pulse Ox O2 Del Method O2 Flow Rate 97.5 F L 47 L 18 134/57 H 97 Nasal Cannula 2 06/15/24 05:24 06/15/24 05:33 06/15/24 05:24 06/15/24 05:33 06/15/24 05:24 06/15/24 05:24 06/15/24 05:24 Oxygen Flow Rate (L/min) 2 Oxygen Delivery Method Nasal Cannula Weight: 143.7 kg Body Mass Index (BMI) 46.7 Intake & Output: Intake and Output for Last 24 Hours 06/13/24 06/14/24 06/15/24 23:59 23:59 23:59 Intake Total 100 / 100 800 / 800 600 / 600 Output Total 1300 / 1300 1700 / 1700 550 / 550 Balance -1200 / -1200 -900 / -900 50 / 50 Medical Nutrition Assessment Dietitian: Malnutrition Criteria Met Start: 06/11/24 12:02 Freq: Status: Active Protocol: Document 06/11/24 12:47 SB (Rec: 06/11/24 12:47 SB [id number]) Nutrition Malnutrition Evidence of Yes Malnutrition Exists Malnutrition ( Acute Illness/Injury moderate): Evidenced By Suboptimal Energy Intake (Moderate),Weight Loss ( Moderate) Clinical Problem Acute Disease or Injury Related Malnutrition Etiology moderate related to inadequate oral intake and increased energy expenditure due to metastatic renal cancer Signs/Symptoms as evidenced by PO meeting <50% of estimated nutrition needs x 1 month and 5% unintentional weight loss x 1 month. Status Active Problem Recommendation Dietitian Adjust to liberal regular diet due to malnutrition. Recommendations/ Will order 240ml EPHP with breakfast and dinner, Changes prefers vanilla. Will discontinue 120ml ensure compact TID with medpass due to no longer being available in [facility] formulary. Will monitor weight trends. Lab / Micro Data 06/14/24 12:05 06/14/24 06:23 Labs: Laboratory Results - last 24 hr 06/14/24 06:23: WBC 7.4, RBC 2.71 L, Hgb 7.9 L, Hct 25.3 L, MCV 93.4, MCH 29.2, MCHC 31.2 L, RDW Std Deviation 59.1 H, RDW Coeff of Abdiel 17.2 H, Plt Count 326, MPV 10.3, Sodium 139, Potassium 4.4, Chloride 110 H, Carbon Dioxide 18.7 L, Anion Gap 11, BUN 28 H, Creatinine 1.92 H, Estim Creat Clear Calc 49.86 L, Est GFR (MDRD) Non-Af 37 L, BUN/Creatinine Ratio 14.6, Glucose 106 H, Calcium 6.8 L 06/14/24 09:00: PT 27.1 H, INR 2.5 06/14/24 12:05: Hgb 9.1 L Micro: Microbiology 06/10/24 19:42 Urine, Clean Catch Urine Culture - Final ESBL Klebsiella pneumoniae pne 06/10/24 17:10 Mucosa - Nose SARS-CoV-2, Influenza & RSV (PCR) - Final Physical Exam Const alert, oriented x3 and no apparent distress; Negative for average body habitus, healthy appearing or well nourished Constitutional Narrative: Older, white male, lying in bed, patient currently appears comfortable, does not appear toxic, watching television General Appearance: cooperative HEENT normocephalic, head/scalp atraumatic and moist oral mucous membranes HEENT Narrative: Mallampati 3-4, no thrush Resp normal respiratory effort, no retractions, no use of accessory muscles and clear to auscultation bilaterally Resp Narrative: Distant due to body habitus Auscultation: Negative for rales, rhonchi or wheezes Cardio regular rate, regular rhythm, S1 normal heart sound, S2 normal heart sound, no murmurs, no rub, no gallops and no clicks Cardio Narrative: distant 2/2 body habitus GI normal to inspection, nondistended, normoactive bowel sounds, soft to palpation and non-tender GI Narrative: large protuberant abdomen Extremity no clubbing, cyanosis or edema Extremity Narrative: pedal pulses are 2+ Skin Skin Narrative: Worked well it worked though Neuro oriented x3, moves all extremities and no focal motor deficits Neuro Narrative: generalized weakness Speech: speech normal Psych affect normal Psych Narrative: Pleasant, interacts appropriately Assessment & Plan Assessment/Plan (1) Pathological fracture of pelvis: QUALIFIERS: Pathology associated with fracture: neoplastic disease Encounter type: sequela Qualified Code(s): M84.550S - Pathological fracture in neoplastic disease, pelvis, sequela (2) Ambulatory dysfunction: (3) Generalized weakness: (4) Chronic low back pain: QUALIFIERS: Back pain laterality: unspecified Sciatica presence: without sciatica Qualified Code(s): M54.50 - Low back pain, unspecified; G89.29 - Other chronic pain PLAN: Plan ESBL Klebsiella UTI-complicated -Continue Levaquin day for 14 days and today is day 5 of 14 -Will need Adams at discharge -will treat as complicated UTI -per family has had worsening sx since on Ditropan Chest pain -Troponin elevation but 50 on the initial 50 on the delta and 49 on the third troponin -check a.m. echocardiogram -Check a.m. stress test -Stat CT of the chest is pending -EKG x 2 unremarkable -Will try GI cocktail Acute on chronic anemia -Hemoglobin is stable -No signs of bleeding -Will continue to monitor with repeat CBC in a.m. Supratherapeutic INR -4.0 on presentation and was given vitamin K at that time 2.5 mg -Hemoglobin is stable -INR is 2.5 yesterday will repeat in a.m. -Continue home Coumadin Falls/generalized weakness/debility -Related to his injuries and overall general medical issues -Appears to be acute on chronic -PT/OT are following and plan is discharge to skilled facility once we find a place for him to go you probably tolerated better because you were sedated -Case management/health and social care teacher following -Still working on finding an accepting facility but family is insistent that he needs rehab as he has had difficulty since he came home from acute rehab -Patient does not have accepting facility yet however he is Medicare and has 3 midnights so soon as he is medically stable he may discharge Right ischial tuberosity pathological avulsion fracture/subacute coccyx fracture -Stable -Weightbearing as tolerated Urinary incontinence/retention -Patient with normal emptying per discussion with family prior to admission -Stop Ditropan at discharge -Will replace Adams and discharge with and have a follow-up with Dr. Bianca after discharge Metastatic renal cell carcinoma -In process of initiating chemo -Follows with Dr. Perez in [place] -Patient needs to follow as previously recommended after discharge CAD/essential hypertension/hyperlipidemia -Continue home losartan and metoprolol -As needed hydralazine available for systolic pressures greater than 160 -Continue atorvastatin -Continue Plavix -Continue Ranexa -Continue isosorbide mononitrate -Previous stent placement in 2021 History of paroxysmal atrial fibrillation -Continue beta-kiki -Continue Coumadin and monitor INR with a goal 2-3 -Recheck INR in a.m. BPH with obstruction -Continue home Flomax -Patient is having retention so Adams replaced and will need outpatient urology follow-up History of gout -No signs of acute flare and patient's not on any suppression medication GERD -Continue home PPI -Patient also has history of Schatzki's ring found on EGD from 2023 LILI -Continue CPAP -Family has brought in home unit Depression/anxiety -Continue home antidepressants MO -BMI 46.8 -recommend wgt loss DVT prophylaxis -INR is therapeutic Code Status -Full Code Disposition: Patient was medically ready for discharge as of 06/12/2024. Developed chest pain overnight on 06/14 to 06/15/2024. Workup in progress and could potentially delay discharge. Awaiting acceptance to a facility. Charges/Coding Visit Charges Inpatient E&M: 75056 Subs Hosp L2
[2024-06-15 08:52] LABS: Troponin T High Sensitivity 50 ng/L (<=22)
--- NOTE | 2024-06-15 09:30 | ECHOCS_ITS ---
Reason For Study Reason For Study: CHEST PAIN Procedure This was a 2D Doppler, Color Flow transthoracic echocardiogram. The study was technically difficult. Exam performed in department. Left Ventricle Normal LV size. Left ventricular systolic function is normal. The left ventricular ejection fraction is 65 %. No regional wall motion abnormalities noted. Right Ventricle Normal RV size. Normal systolic function. Atria The left atrium is mildly enlarged. Normal right atrium. Tricuspid Valve Normal tricuspid valve. Mild (1+) tricuspid valve insufficiency. Pulmonary artery systolic pressure is 38 mmHg. Aortic Valve Trisinus/trileaflet aortic valve. Mild focal aortic valve calcification. Pulmonic Valve Normal pulmonic valve. Great Vessels Normal aortic root. The pulmonary artery is normal size. Normal inferior vena cava. Pericardium/Pleural No pericardial effusion. Medication Diluted definity 3ml given slow IV push to enhance endocardial definition. MMode/2D Measurements & Calculations LVIDd: 5.0 cm IVSd: 1.1 cm Ao root diam: 3.4 cm LVIDs: 3.3 cm LVPWd: 1.1 cm RVDd: 3.9 cm FS: 35.1 % LAV(MOD-bp): 68.7 ml LVAd ap4: 39.8 cm2 SV(MOD-sp4): 99.3 ml LAV(MOD-bp) Indexed: 27.4 ml/m2 LVLd ap4: 8.4 cm SI(MOD-sp4): 39.6 ml/m2 LAV(MOD-sp2): 63.0 ml EDV(MOD-sp4): 150.5 ml LAV(MOD-sp4): 66.7 ml EDV(sp4-el): 159.8 ml LVAs ap4: 20.9 cm2 LVLs ap4: 7.0 cm ESV(MOD-sp4): 51.1 ml ESV(sp4-el): 53.1 ml EF(MOD-sp4): 66.0 % EF(sp4-el): 66.8 % SV(sp4-el): 106.7 ml LA A4 area: 23.5 cm2 LA dimension(2D): 4.4 cm RA A4 area: 20.5 cm2 TAPSE: 2.5 cm Time Measurements MV dec time: 0.23 sec Doppler Measurements & Calculations MV E max rell: 114.5 cm/sec Lat Peak E' Rell: 18.0 cm/sec Med Peak E' Rell: 11.8 cm/sec MV A max rell: 63.4 cm/sec E/E' lat: 6.4 E/E' med: 9.7 MV E/A: 1.8 Ao V2 max: 258.0 cm/sec LV V1 max: 119.7 cm/sec PA V2 max: 114.1 cm/sec Ao max P.6 mmHg LV V1 max P.7 mmHg Ao V2 mean: 180.4 cm/sec LV V1 mean P.5 mmHg Ao mean P.7 mmHg LV V1 mean: 72.5 cm/sec Ao V2 VTI: 59.8 cm LV V1 VTI: 26.4 cm AV (velocity ratio): 0.44 TR max rell: 293.5 cm/sec TR max P.5 mmHg ECHO/Echo Complete W/ Contrast Interpretation Summary Normal LV size. Left ventricular systolic function is normal. The left ventricular ejection fraction is 65 %. The left atrium is mildly enlarged. Contrast injection was performed. Ordering Physician: Noa Leyva Referring Physician: SAADIA FRANK Performed By: Joaquina Sparks RDCS
[2024-06-15] MEDS: Lactobacillis Acidophilus 1 CAP PO ×4 (09:51→21:52)
[2024-06-15] MEDS: Menthol/Lanolin/Calamine/Znox 113 GM Tube 1 APPLIC TOPICAL ×2 (09:51→21:50)
[2024-06-15] MEDS: Multivitamins,Therapeutic Tablet 1 TABLET PO (09:51)
[2024-06-15] MEDS: Citalopram 20 MG Tablet PO (09:51)
[2024-06-15] MEDS: Losartan Potassium 50 MG Tablet PO (09:52)
[2024-06-15] MEDS: Clopidogrel Bisulfate 75 MG Tablet PO (09:52)
[2024-06-15] MEDS: Isosorbide Mononitrate 60 MG Tablet PO ×2 (10:04→21:52)
[2024-06-15] MEDS: Nystatin Powder 15gm Bottle 1 APPLIC TOPICAL ×2 (10:04→21:50)
[2024-06-15] MEDS: Pantoprazole Sodium 20 MG Tablet PO (10:04)
[2024-06-15] MEDS: Ranolazine 500 MG Tablet PO ×2 (10:05→21:53)
[2024-06-15] MEDS: Metoprolol(XL)Succ 50 MG Tablet PO ×2 (10:06→21:51)
[2024-06-15 11:10] LABS: Troponin T High Sens 2 HR 50 ng/L (<=22)
--- NOTE | 2024-06-15 12:23 | EKG12_ITS ---
Test Reason : AM EKG Blood Pressure : */* mmHG Vent. Rate : 49 BPM Atrial Rate : * BPM P-R Int : * ms QRS Dur : 80 ms QT Int : 504 ms P-R-T Axes : * 35 32 degrees QTcB Int : 455 ms Sinus bradycardia Hr 49 Abnormal ECG When compared with ECG of 15-Jun-2024 12:34, MANUAL COMPARISON REQUIRED DATA IS UNCONFIRMED Confirmed by Abdi Gasca ([id number]), editorial specialist SAMIR RAMIREZ ([id number]) on 06/16/2024 1:23:16 PM Referred By: RAMÍREZ Confirmed By: Abdi Gasca
--- NOTE | 2024-06-15 12:23 | NURSING ---
1215 Dr Leyva notified of Patient c/o of chest pain-rating as 10 in mid chest. Vitals sign stable-Dr aware. see new orders. Dora Courtney RN
[2024-06-15] MEDS: 0.9% Saline Lock 10 ML Syringe IV (12:42)
[2024-06-15] MEDS: HYDROmorphone 0.5 MG/0.5 ML SYRINGE IV (12:43)
[2024-06-15 12:49] LABS: Troponin T High Sens 4 HR 49 ng/L (<=22)
--- NOTE | 2024-06-15 13:01 | CT_ITS ---
PROCEDURE: CHEST WITHOUT CONTRAST 06/15/2024 REASON FOR EXAM: PAIN TECHNIQUE: Chest CT without contrast. Coronal and Sagittal reconstruction series were provided. One or more dose reduction techniques were used (e.g., Automated exposure control, adjustment of the mA and/or kV according to patient size, use of iterative reconstruction technique RADIATION DOSE SUMMARY: CTDlvol: 20 mGy DLP: 700 mGycm COMPARISON: CT T-spine 06/10/2024. FINDINGS: Hardware: Partially visualized spinal fixation hardware within the lower thoracic spine. Lymph nodes: Visualization is limited without the use of IV contrast. No axillary, mediastinal or hilar lymphadenopathy. Heart and Vasculature: The heart is normal in size without pericardial effusion. The great vessels are normal in caliber with severe coronary artery, moderate aortic valvular and thoracic aortic calcifications. Lungs and Airways: Visualization of the lung parenchyma is limited by motion artifact. The central airways are patent. Bibasilar atelectasis/scarring. No suspicious pulmonary nodule, pleural effusion or pneumothorax. Upper Abdomen: Vascular calcifications. Bones/soft tissues: Partially visualized spinal fixation hardware within the lower thoracic spine. Mixed lytic and sclerotic lesion of the T7 vertebral body. Postoperative scarring along the posterior midline lower back. CT/Chest without Contrast IMPRESSION: 1. No acute thoracic finding visualized by noncontrast examination. 2. Severe coronary artery calcifications. 3. Mixed lytic and sclerotic lesion of the T7 vertebral body. Reading Location: [facility]
[2024-06-15] MEDS: Mag Hydrox/Al Hydrox/Simeth 30 ML UDC PO (16:03)
[2024-06-15] MEDS: Lidocaine 2% Viscous15 ML UDC 15 ML PO (16:04)
[2024-06-15] MEDS: oxyCODONE 5 MG Tablet PO (20:23)
[2024-06-15] MEDS: Tamsulosin HCl 0.4 MG Capsule PO (21:52)
[2024-06-15] MEDS: Mirtazapine 30 MG Tablet PO (21:52)
[2024-06-15] MEDS: Atorvastatin Calcium 80 MG Tablet PO (21:53)
[2024-06-15] MEDS: levoFLOXacin IV 500 MG/100 ML BAG 100 MG IV (21:56)
[2024-06-16] VITALS (10 sets, daily range): BP systolic 100–139; BP diastolic 42–56; PULSE 50–67; RESP 16–18; TEMP 36.4–36.7; O2SAT 94–100
--- NOTE | 2024-06-16 05:00 | EKG12_ITS ---
Test Reason : CP Blood Pressure : */* mmHG Vent. Rate : 53 BPM Atrial Rate : 53 BPM P-R Int : 200 ms QRS Dur : 84 ms QT Int : 490 ms P-R-T Axes : 84 30 15 degrees QTcB Int : 459 ms Sinus bradycardia with Premature supraventricular complexes Low voltage QRS Borderline ECG When compared with ECG of 14-Jun-2024 21:14, MANUAL COMPARISON REQUIRED DATA IS UNCONFIRMED Confirmed by Abdi Gasca ([id number]), story editor SAMIR RAMIREZ ([id number]) on 06/16/2024 1:23:28 PM Referred By: Confirmed By: Abdi Gasca
[2024-06-16 05:34] LABS: Absolute Lymphocyte Count 0.84 X10^3/uL (0.83-4.51); Absolute Neutrophil Count 7.8 X10^3/uL (2.0-7.7); Basophil# 0.02 X10^3/uL; Basophil% 0.2 % (0-1); Eosinophil# 0.17 X10^3/uL; Eosinophils% 1.6 % (0-5); Hematocrit 26.2 % (40-54); Hemoglobin 8.1 g/dL (13.0-16.5); Lymphocyte # 0.84 X10^3/ul (0.83-4.51); Mean Corp Hgb Conc 30.9 g/dL (32-36); Mean Corpuscular Hgb 28.6 pg (27.0-32.0); Mean Corpuscular Volume 92.6 fL (80-94); Mean Platelet Vol. 9.8 fl (6.2-12.0); Monocyte# 1.63 X10^3/uL; Monocyte% 15.5 % (0-10); NRBC Flagged by Analyzer 0 % (0-5); Neutrophil # 7.75 X10^3/uL (2.7-7.7); Neutrophil % 73.9 % (47-70); POSITIVE DIFFERENTIAL YES; Platelet Count 310 K/mm3 (150-450); RBC Distribution Width CV 17.6 % (11.6-14.6); RBC Distribution Width SD 59.6 fl (35.1-43.9); Red Blood Count 2.83 M/mm3 (4.6-6.2); White Blood Count 10.5 K/mm3 (4.4-11.0)
[2024-06-16 05:48] LABS: Differential Indicated SCAN CRITERIA MET
[2024-06-16 05:57] LABS: Prothrombin Time (Protime)PT. 31.6 SECONDS (11.7-14.9)
[2024-06-16 06:01] LABS: Anion Gap 10 (5-15); BUN 28 mg/dL (4-19); BUN/Creat Ratio 14.1 RATIO (10-20); Calcium,Total 6.9 mg/dL (7.6-11.0); Carbon Dioxide 20.2 mmol/L (21.0-32.0); Chloride 109 mmol/L (98-108); Creatinine, Serum 1.99 mg/dL (0.70-1.20); EST Glomerular Filtration Rate 35 (>60); Estimated Creatinine Clearance 48.11 ml/min (50-250); Glucose 116 mg/dL (70-99); Potassium 4.6 mmol/L (3.3-5.1); Sodium Level 139 mmol/L (133-145)
[2024-06-16 06:24] LABS: Differential Comment SCANNED
[2024-06-16 06:25] LABS: Platelet Estimate ADEQUATE (ADEQ)
[2024-06-16 06:26] LABS: Acanthocytes RARE; Anisocytosis 1+; Crenated RBC 1+; Pathologist Review May foll; Schistocytes RARE; Tear Drop Cell 1+
[2024-06-16] MEDS: Clopidogrel Bisulfate 75 MG Tablet PO (07:18)
--- NOTE | 2024-06-16 09:58 | CASEMGMT ---
Discharge Planning VM left for Heather Evangelista (filling in for Sherri) regarding status of referral. Jayne Henry DC Planning Asst.
--- NOTE | 2024-06-16 10:49 | CASEMGMT ---
[facility] has accepted. SW updated. Jayne Henry DC Planning Asst
--- NOTE | 2024-06-16 10:56 | PN.HOSP_ITS ---
Reason for Visit Reason for Visit: Diagnoses Malignant neoplasm of unspecified kidney, except renal pelvis (06/10/24) Secondary malignant neoplasm of bone (06/10/24) Morbid (severe) obesity due to excess calories (06/10/24) Other chronic pain (06/10/24) Low back pain, unspecified (06/10/24) Pathological fracture in neoplastic disease, pelvis, sequela (06/10/24) Acute cystitis without hematuria (06/10/24) Difficulty in walking, not elsewhere classified (06/10/24) Weakness (06/10/24) Abnormal coagulation profile (06/10/24) Contusion of unspecified back wall of thorax, initial encounter (06/10/24) Unspecified fall, initial encounter (06/10/24) Unspecified place in unspecified non-institutional (private) residence as the place of occurrence of the external cause (06/10/24) Body mass index [BMI] 45.0-49.9, adult (06/10/24) Subjective Subjective Patient is a 73-year-old gentleman with multiple comorbidities who was admitted progressive generalized weakness as well as falls at home. Patient had apparently been discharged from a custodial facility following a prolonged stay at [facility]. Patient was being treated for acute complicated UTI with ESBL Klebsiella. Hospital stay was complicated by chest pain necessitating decision for patient to undergo subsequent evaluation with a nuclear stress test and a 2D echo Objective Data Objective Data Vital Signs: Vital Signs Temp Pulse Resp BP Pulse Ox O2 Del Method O2 Flow Rate 97.6 F L 52 L 16 120/49 L 97 CPAP 97 06/16/24 08:40 06/16/24 08:40 06/16/24 08:40 06/16/24 08:40 06/16/24 08:40 06/16/24 08:48 06/16/24 08:40 Oxygen Flow Rate (L/min) 97 Oxygen Delivery Method CPAP Weight: 143.7 kg Body Mass Index (BMI) 46.7 Intake & Output: Intake and Output for Last 24 Hours 06/14/24 06/15/24 06/16/24 23:59 23:59 23:59 Intake Total 800 / 800 1500 / 1850 450 / 450 Output Total 1700 / 1700 1050 / 1300 450 / 450 Balance -900 / -900 450 / 550 0 / 0 Medical Nutrition Assessment Dietitian: Malnutrition Criteria Met Start: 06/11/24 12:02 Freq: Status: Active Protocol: Document 06/11/24 12:47 SB (Rec: 06/11/24 12:47 SB [id number]) Nutrition Malnutrition Evidence of Yes Malnutrition Exists Malnutrition ( Acute Illness/Injury moderate): Evidenced By Suboptimal Energy Intake (Moderate),Weight Loss ( Moderate) Clinical Problem Acute Disease or Injury Related Malnutrition Etiology moderate related to inadequate oral intake and increased energy expenditure due to metastatic renal cancer Signs/Symptoms as evidenced by PO meeting <50% of estimated nutrition needs x 1 month and 5% unintentional weight loss x 1 month. Status Active Problem Recommendation Dietitian Adjust to liberal regular diet due to malnutrition. Recommendations/ Will order 240ml EPHP with breakfast and dinner, Changes prefers vanilla. Will discontinue 120ml ensure compact TID with medpass due to no longer being available in [facility] formulary. Will monitor weight trends. Lab / Micro Data 06/16/24 05:26 06/16/24 05:26 Labs: Laboratory Results - last 24 hr 06/15/24 10:21: Troponin T Hi Sens 2 Hr 50 H 06/15/24 12:15: Troponin T Hi Sens 4Hr 49 H 06/16/24 05:26: WBC 10.5, RBC 2.83 L, Hgb 8.1 L, Hct 26.2 L, MCV 92.6, MCH 28.6, MCHC 30.9 L, RDW Std Deviation 59.6 H, RDW Coeff of Abdiel 17.6 H, Plt Count 310, MPV 9.8, Immature Gran % (Auto) 0.800, Neut % (Auto) 73.9 H, Lymph % (Auto) 8.0 L, [place] % (Auto) 15.5 H, Eos % (Auto) 1.6, Baso % (Auto) 0.2, Absolute Neuts (auto) 7.8 H, Absolute Lymphs (auto) 0.84, Nucleated RBC % 0, Differential Comment SCANNED, Diff Path Review May foll, Platelet Estimate ADEQUATE, Anisocytosis 1+, Tear Drop Cells 1+, Crenated Cell 1+, Acanthocytes (Spur) RARE, Schistocytes RARE, PT 31.6 H, INR 3.0, Sodium 139, Potassium 4.6, Chloride 109 H, Carbon Dioxide 20.2 L, Anion Gap 10, BUN 28 H, Creatinine 1.99 H, Estim Creat Clear Calc 48.11 L, Est GFR (MDRD) Non-Af 35 L, BUN/Creatinine Ratio 14.1, G lucose 116 H, Calcium 6.9 L Micro: Microbiology 06/10/24 19:42 Urine, Clean Catch Urine Culture - Final ESBL Klebsiella pneumoniae pne 06/10/24 17:10 Mucosa - Nose SARS-CoV-2, Influenza & RSV (PCR) - Final Radiography Diagnostic Testing: Radiology Impression Chest CT 06/15/24 13:01 IMPRESSION: 1. No acute thoracic finding visualized by noncontrast examination. 2. Severe coronary artery calcifications. 3. Mixed lytic and sclerotic lesion of the T7 vertebral body. Reading Location: [facility] Physical Exam Narrative GENERAL: cooperative HEENT: Atraumatic; normocephalic EYES; Anicteric, Normal Conjunctiva NECK; supple, normal thyroid, RESPIRATORY: Diminished to auscultation CARDIOVASCULAR: Regular S1 S2, GI: soft, normoactive bowel sounds, : No Renal angle tenderness; EXTREMITIES: No edema, no clubbing, MUSCULOSKELETAL: no muscle wasting NEURO: Awake; no lateralizing signs. SKIN: No Rash PSYCH; Flat affect Assessment & Plan Assessment/Plan (1) Pathological fracture of pelvis: QUALIFIERS: Pathology associated with fracture: neoplastic disease Encounter type: sequela Qualified Code(s): M84.550S - Pathological fracture in neoplastic disease, pelvis, sequela (2) Ambulatory dysfunction: (3) Generalized weakness: (4) Chronic low back pain: QUALIFIERS: Back pain laterality: unspecified Sciatica presence: without sciatica Qualified Code(s): M54.50 - Low back pain, unspecified; G89.29 - Other chronic pain PLAN: Plan Patient is a 73-year-old gentleman with multiple comorbidities who was admitted progressive generalized weakness as well as falls at home. Patient had apparently been discharged from a custodial facility following a prolonged stay at [facility]. Patient was being treated for acute complicated UTI with ESBL Klebsiella. Hospital stay was complicated by chest pain necessitating decision for patient to undergo subsequent evaluation with a nuclear stress test and a 2D echo 1. Acute complicated UTI with ESBL Klebsiella ? Patient is on Levaquin. Plan is to complete total of 14-day treatment. 2. Chest pain ? Did rule out ID with serial cardiac enzymes patient placed on continuous telemetry monitoring plan is for patient to undergo subsequent evaluation with a nuclear stress test 3. BPH with lower urinary obstructive symptoms - Patient treated with tamsulosin. Patient has not indwelling Adams catheter plan is for patient to be discharged home with a Adams 4. Class III obesity with BMI of 41.8 ? Complicating care 5. Dyslipidemia -Patient is on statin therapy, continued at home dose 6. Paroxysmal A-fib ? Rate controlled on metoprolol and systemic anticoagulation with warfarin. Monitoring with daily INR 7. Hypertension - Blood pressure controlled, home medications continued with dose adjustment as needed 8. Coronary artery disease ? With known history of total occlusion involving the RCA. Patient currently on guideline directed medical therapy 9. GERD ? On PPI 10. Obstructive sleep apnea ? CPAP therapy at night 11. Anemia - Secondary to chronic disorder monitoring H&H and transfuse if patient becomes symptomatic or hemoglobin falls below 7 12. Depression with anxiety Patient is on SSRI 12. Chronic kidney disease stage III ? Kidney function at baseline 13. Gout ? Patient is on allopurinol 14. Right ischial tuberosity pathological avulsion fracture/subacute coccyx fracture -Stable ;-Weightbearing as tolerated 15. Physical deconditioning ? Requested for PT OT eval and social psychologist to assist with discharge planning 16. Metastatic renal cell carcinoma -In process of initiating chemo ;Follows with Dr. Perez in [place]; -Patient patient informed to follow-up as previously recommended after discharge 17. DVT prophylaxis ? Patient is on warfarin Time spent in the patient's overall evaluation,decision-making process, review of diagnostic data, adjustment of management, discussion with other providers, nursing nursing and ancillary staff involved in patient's care documentation, 50 minutes Charges/Coding Visit Charges Inpatient E&M: [id number] [facility] Hosp L3
--- NOTE | 2024-06-16 12:58 | STRESSREP ---
Stress Test Report Pharmacologic myocardial perfusion stress test. 73-year-old man with a history of known coronary artery disease presenting with chest pain Resting EKG demonstrates sinus bradycardia with a rate of 54 bpm. Resting blood pressure is 128/60 mmHg. 0.4 mg of regadenoson was infused per usual protocol followed by rapid intravenous saline flush injection. Continuous EKG monitoring was performed. The maximum heart rate was 63 bpm which was 42% of max impacted heart rate the maximum workload was 1 metabolic equivalent. At rest there were no ST or T wave changes noted to suggest ischemia and at peak infusion nonspecific ST changes were noted which did not meet the criteria for ischemia. No clinical angina is noted. The final blood pressure was 108/50 mmHg. Myocardial perfusion protocol. 14.7 mCi of technetium 99m sestamibi was injected at rest. 0.4 mg of regadenoson was infused per usual protocol. At peak infusion 44 point mCi of technetium 99m sestamibi was injected stress images were obtained stress and rest images were reconstructed and compared in the short axis vertical long and horizontal long axis. Gated images were also obtained. Perfusion SPECT analysis: Review of the stress images demonstrate normal uptake of tracer noted in all areas of the myocardium. There is a portion of the inferior wall from the basal to mid segment with reduced perfusion. The rest images demonstrate mild improvement in this area suggestive of mild inferior ischemia and a previously infarcted zone. Gated SPECT analysis: The gated ejection fraction is 68%. Conclusion: Mildly abnormal pharmacologic myocardial perfusion stress test. Preserved ejection fraction. Mild inferior ischemia noted Compared to the previous stress test from 2019 the above is unchanged.
--- NOTE | 2024-06-16 14:23 | PCM.TXEXTCAR ---
Diet Diet Order/Speech Therapy: 06/16/24 13:59 Diet: Regular - General Type of Dietary Supplement:: Ensure Plus High Protein Diet Comments: 120mL Ensure w/breakfast and dinner Routine Orders/Code Status Routine Lab Work: INR (On 06/18/2024) Code Status: Full Code DC O2, CPAP, BIPAP needs Home O2 Discharge instructions: No Wound(s) RT POSTERIOR SHOULDER: Wound Type: Surgical Incision Therapies Physical Therapy: Eval and Treat Occupational Therapy: Eval and Treat Problem/Diagnosis (1) Pathological fracture of pelvis: Status: Acute Code(s): M84.454A - Pathological fracture, pelvis, initial encounter for fracture (2) Ambulatory dysfunction: Status: Acute Code(s): R26.2 - Difficulty in walking, not elsewhere classified (3) Generalized weakness: Status: Acute Code(s): R53.1 - Weakness (4) Chronic low back pain: Status: Chronic Code(s): M54.50 - Low back pain, unspecified; G89.29 - Other chronic pain Plan Patient is a 73-year-old gentleman with multiple comorbidities who was admitted progressive generalized weakness as well as falls at home. Patient had [place] been [place] [facility] following a prolonged stay at [facility]. Patient was being treated for acute complicated UTI with ESBL Klebsiella. Hospital stay was complicated by chest pain necessitating decision for patient to undergo subsequent evaluation with a nuclear stress test and a 2D echo 1. Acute complicated UTI with ESBL Klebsiella ? Patient is on Levaquin. Plan is to complete total of 14-day treatment. 2. Chest pain ? Did rule out AL with serial cardiac enzymes patient placed on continuous telemetry monitoring plan is for patient to undergo subsequent evaluation with a nuclear stress test ? Nuclear stress test result as below Mildly abnormal pharmacologic myocardial perfusion stress test. Preserved ejection fraction. Mild inferior ischemia noted Compared to the previous stress test from 2019 the above is unchanged. 3. BPH with lower urinary obstructive symptoms - Patient treated with tamsulosin. Patient has not indwelling Adams catheter plan is for patient to be discharged home with a Adams 4. Class III obesity with BMI of 41.8 ? Complicating care 5. Dyslipidemia -Patient is on statin therapy, continued at home dose 6. Paroxysmal A-fib ? Rate controlled on metoprolol and systemic anticoagulation with warfarin. Monitoring with daily INR 7. Hypertension - Blood pressure controlled, home medications continued with dose adjustment as needed 8. Coronary artery disease ? With known history of total occlusion involving the RCA. Patient currently on guideline directed medical therapy 9. GERD ? On PPI 10. Obstructive sleep apnea ? CPAP therapy at night 11. Anemia - Secondary to chronic disorder monitoring H&H and transfuse if patient becomes symptomatic or hemoglobin falls below 7 12. Depression with anxiety Patient is on SSRI 12. Chronic kidney disease stage III ? Kidney function at baseline 13. Gout ? Patient is on allopurinol 14. Right ischial tuberosity pathological avulsion fracture/subacute coccyx fracture -Stable ;-Weightbearing as tolerated 15. Physical deconditioning ? Requested for PT OT eval and family welfare social work professor to assist with discharge planning 16. Metastatic renal cell carcinoma -In process of initiating chemo ;Follows with Dr. Perez in [place]; -Patient patient informed to follow-up as previously recommended after discharge 17. DVT prophylaxis ? Patient is on warfarin Time spent in the patient's overall evaluation,decision-making process, review of diagnostic data, adjustment of management, discussion with other providers, nursing nursing and ancillary staff involved in patient's care documentation, 50 minutes Allergies/Procedures Done in Hospital Allergies bee venom protein (honey bee) Allergy (Verified 06/10/24 16:03) Hives amlodipine Adverse Reaction (Severe, Verified 06/10/24 16:03) severe swelling in hands and feet ceftriaxone Adverse Reaction (Verified 06/10/24 16:03) Nausea/Vom/Diarrhea severe nausea and vomiting spider venom Adverse Reaction (Verified 06/10/24 16:03) Other Type of Care/Length of Stay Estimated LOS: Convalescent Care Less Than 30 days Type of Care Needed: Skilled Rehab Potential: Good Prognosis: Good Additional Orders/Day of Discharge Day of Discharge: 06/16/24 Dietary and Speech Recommendations Dietitian Recommendations/Changes: Continue liberal regular diet due to malnutrition and 120ml EPHP with breakfast and dinner, prefers vanilla. Will monitor weight trends. Discharge Plan Admission Admit Date/Time: 06/10/24 21:58 Attending Provider: Jake Johnson Primary Care Provider: Cornell Gunter Consulting Providers: Jake Rose; Noa Leyva Discharge Orders/Prescriptions Prescriptions: New acetaminophen 500 mg Tablet 1,000 mg PO Q8 Qty: 0 0RF magnesium hydroxide 400 mg/5 mL Suspension 30 ml PO DAILY PRN PRN (Reason: Constipation) Qty: 0 0RF alum-mag hydroxide-simeth [Mag-Al Plus Extra Strength] 400-400-40 mg/5 mL Suspension 30 ml PO Q6H PRN PRN (Reason: Gastric Burning) Qty: 0 0RF oxycodone 5 mg Tablet 5 mg PO Q4H PRN PRN (Reason: Pain Score 6-10) 3 Days Qty: 14 0RF L.acidoph,saliva-B.bif-S.therm 175 mg Capsule 1 cap PO 4X/DAY Qty: 0 0RF tizanidine 2 mg Tablet 4 mg PO TID Qty: 0 0RF levofloxacin 500 mg tablet 500 mg PO DAILY Qty: 8 0RF Continued hydroxychloroquine 200 mg tablet 200 mg PO BID mirtazapine 30 mg tablet,disintegrating 30 mg PO QHS esomeprazole magnesium [Nexium] 20 mg capsule,delayed release(DR/EC) 20 mg PO DAILY multivitamin Tablet 1 tab PO DAILY losartan 50 mg tablet 50 mg PO DAILY citalopram 20 MG tablet 20 mg PO DAILY tamsulosin 0.4 MG capsule 0.4 mg PO QHS isosorbide mononitrate 60 mg tablet extended release 24 hr 60 mg PO BID melatonin 3 mg tablet 3 mg PO QHS PRN (Reason: sleep) metoprolol succinate 50 mg tablet extended release 24 hr 50 mg PO BID warfarin 4 mg tablet 4 mg PO DAILY Protocol: Dose Management Condition: Sunday Dose/Route: 8 mg Instruction: 2 x 4 mg tablets Condition: Sunday Dose/Route: 0 mg Instruction: 0 tablets Condition: Sunday Dose/Route: 8 mg Instruction: 2 x 4 mg tablets Condition: Sunday Dose/Route: 4 mg Instruction: 1 x 4 mg tablet Condition: Dose/Route: 8 mg Instruction: 2 x 4 mg tablets Condition: Sunday Dose/Route: 4 mg Instruction: 1 x 4 mg tablet Condition: Sunday Dose/Route: 8 mg Instruction: 2 x 4 mg tablets Protocol Text: Adjustment Start Date: Sunday05/05/24 INR Value: 4.3 INR Date: 05/05/24 Recheck Date: 05/08/24 Rx Instructions: 4 mg orally 1 tablet on Sunday and Sunday, and 2 tablets (8mg) Sunday through Sunday: OR DIRECTED.; will be stopped one Eliquis is approved or patient assistance clopidogrel 75 mg tablet 75 mg PO DAILY oxybutynin chloride 5 mg tablet 5 mg PO BID atorvastatin 80 mg tablet 80 mg PO QHS Qty: 90 3RF ranolazine 500 mg tablet extended release 12 hr 500 mg PO BID Qty: 180 3RF Discontinued mirtazapine 30 mg tablet 30 mg PO QHS Patient Comments: [NO ORIGINAL SIG] oxycodone 5 mg tablet 5 mg PO Q4H PRN PRN (Reason: pain) Referrals / Follow Up: Cornell Gunter MD [Primary Care Provider] - In 1 Day Disposition Disposition (needs filled in before D/C Order can be placed): Care Home Facility (1) Pathological fracture of pelvis Qualifiers: Pathology associated with fracture: neoplastic disease Encounter type: sequela Qualified Code(s): M84.550S - Pathological fracture in neoplastic disease, pelvis, sequela (4) Chronic low back pain Qualifiers: Back pain laterality: unspecified Sciatica presence: without sciatica Qualified Code(s): M54.50 - Low back pain, unspecified; G89.29 - Other chronic pain
[2024-06-16] MEDS: oxyCODONE 5 MG Tablet PO ×2 (14:38→20:21)
[2024-06-16] MEDS: Menthol/Lanolin/Calamine/Znox 113 GM Tube 1 APPLIC TOPICAL ×2 (14:39→20:21)
[2024-06-16] MEDS: Multivitamins,Therapeutic Tablet 1 TABLET PO (14:39)
[2024-06-16] MEDS: Citalopram 20 MG Tablet PO (14:40)
[2024-06-16] MEDS: Losartan Potassium 50 MG Tablet PO (14:40)
[2024-06-16] MEDS: Lactobacillis Acidophilus 1 CAP PO ×3 (14:41→20:22)
[2024-06-16] MEDS: Pantoprazole Sodium 20 MG Tablet PO (14:42)
[2024-06-16] MEDS: Isosorbide Mononitrate 60 MG Tablet PO ×2 (14:42→20:24)
[2024-06-16] MEDS: Nystatin Powder 15gm Bottle 1 APPLIC TOPICAL ×2 (14:42→20:21)
[2024-06-16] MEDS: Metoprolol(XL)Succ 50 MG Tablet PO ×2 (14:43→20:22)
[2024-06-16] MEDS: Ranolazine 500 MG Tablet PO ×2 (14:43→20:22)
[2024-06-16] MEDS: Acetaminophen 500 MG Tablet 1000 MG PO ×2 (14:44→20:20)
[2024-06-16] MEDS: tiZANidine HCl 2 MG Tablet 4 MG PO ×2 (14:44→20:20)
--- NOTE | 2024-06-16 15:08 | CASEMGMT ---
Social Work Physician updated and pt is ready for discharge today.? [id number] convalescent form completed in [facility]. DCA and bedside nurse notified of discharge. Final arrangements and notifications to family to be completed by DCA. Disposition:[facility], skilled level of care LETTY Patel
--- NOTE | 2024-06-16 15:35 | CASEMGMT ---
Discharge Planning Discharge orders, signed med list, and transport time sent to [place]. Physicians will transport pt by wheelchair at 5p. Nursing, SW, pt, and his updated. Jayne Henry DC Planning Asst.
--- NOTE | 2024-06-16 16:36 | DS.PCM_ITS ---
Providers Date of Admission: 06/10/24 Date of Discharge: 06/16/24 Primary Care Physician: Dr. Cornell Frank MD Reason For Visit: UTI WITH FALL Diagnosis Discharge Diagnosis (1) Pathological fracture of pelvis: Status: Acute Code(s): M84.454A - Pathological fracture, pelvis, initial encounter for fracture Qualifiers: Pathology associated with fracture: neoplastic disease Encounter type: sequela Qualified Code(s): M84.550S - Pathological fracture in neoplastic disease, pelvis, sequela (2) Ambulatory dysfunction: Status: Acute Code(s): R26.2 - Difficulty in walking, not elsewhere classified (3) Generalized weakness: Status: Acute Code(s): R53.1 - Weakness (4) Chronic low back pain: Status: Chronic Code(s): M54.50 - Low back pain, unspecified; G89.29 - Other chronic pain Qualifiers: Back pain laterality: unspecified Sciatica presence: without sciatica Qualified Code(s): M54.50 - Low back pain, unspecified; G89.29 - Other chronic pain Plan Patient is a 73-year-old gentleman with multiple comorbidities who was admitted progressive generalized weakness as well as falls at home. Patient had apparently been [facility] from a [facility] facility following a prolonged stay at [facility]. Patient was being treated for acute complicated UTI with ESBL Klebsiella. Hospital stay was complicated by chest pain necessitating decision for patient to undergo subsequent evaluation with a nuclear stress test and a 2D echo 1. Acute complicated UTI with ESBL Klebsiella ? Patient is on Levaquin. Plan is to complete total of 14-day treatment. 2. Chest pain ? Did rule out PR with serial cardiac enzymes patient placed on continuous telemetry monitoring plan is for patient to undergo subsequent evaluation with a nuclear stress test ? Nuclear stress test result as below Mildly abnormal pharmacologic myocardial perfusion stress test. Preserved ejection fraction. Mild inferior ischemia noted Compared to the previous stress test from 2019 the above is unchanged. 3. BPH with lower urinary obstructive symptoms - Patient treated with tamsulosin. Patient has not indwelling Adams catheter plan is for patient to be discharged home with a Adams 4. Class III obesity with BMI of 41.8 ? Complicating care 5. Dyslipidemia -Patient is on statin therapy, continued at home dose 6. Paroxysmal A-fib ? Rate controlled on metoprolol and systemic anticoagulation with warfarin. Monitoring with daily INR 7. Hypertension - Blood pressure controlled, home medications continued with dose adjustment as needed 8. Coronary artery disease ? With known history of total occlusion involving the RCA. Patient currently on guideline directed medical therapy 9. GERD ? On PPI 10. Obstructive sleep apnea ? CPAP therapy at night 11. Anemia - Secondary to chronic disorder monitoring H&H and transfuse if patient becomes symptomatic or hemoglobin falls below 7 12. Depression with anxiety Patient is on SSRI 12. Chronic kidney disease stage III ? Kidney function at baseline 13. Gout ? Patient is on allopurinol 14. Right ischial tuberosity pathological avulsion fracture/subacute coccyx fracture -Stable ;-Weightbearing as tolerated 15. Physical deconditioning ? Requested for PT OT eval and social media campaign manager to assist with discharge planning 16. Metastatic renal cell carcinoma -In process of initiating chemo ;Follows with Dr. Perez in [place]; -Patient patient informed to follow-up as previously recommended after discharge 17. DVT prophylaxis ? Patient is on warfarin Time spent in the patient's overall evaluation,decision-making process, review of diagnostic data, adjustment of management, discussion with other providers, nursing nursing and ancillary staff involved in patient's care documentation, 50 minutes Medications at Discharge Home Medications citalopram 20 mg tablet 20 mg PO DAILY MOOD 09/21/14 tamsulosin 0.4 mg capsule 0.4 mg PO QHS bph 05/18/19 hydroxychloroquine 200 mg tablet 200 mg PO BID arthritis 04/25/21 isosorbide mononitrate 60 mg tablet,extended release 24 hr 60 mg PO BID heart 02/17/23 melatonin 3 mg tablet 3 mg PO QHS PRN sleep 05/09/23 esomeprazole magnesium 20 mg capsule,delayed release (Nexium) 20 mg PO DAILY 08/07/23 metoprolol succinate 50 mg tablet,extended release 24 hr 50 mg PO BID BLOOD PRESSURE 08/07/23 mirtazapine 30 mg disintegrating tablet 30 mg PO QHS 08/07/23 multivitamin 1 tab PO DAILY 08/07/23 losartan 50 mg tablet 50 mg PO DAILY BP 11/21/23 warfarin 4 mg tablet 4 mg PO DAILY 01/14/24 atorvastatin 80 mg tablet 80 mg PO QHS CHOLESTEROL #90 tabs 01/24/24 clopidogrel 75 mg tablet 75 mg PO DAILY 05/09/24 oxybutynin chloride 5 mg tablet 5 mg PO BID 06/10/24 ranolazine 500 mg tablet,extended release,12 hr 500 mg PO BID HEART DISEASE #180 tabs 06/10/24 L.acidophil,salivari-Bifido bifidum-Strep thermoph 175 mg capsule 1 cap PO 4X/DAY #0 caps 06/16/24 acetaminophen 500 mg tablet 1,000 mg (2 x 500 mg) PO Q8 #0 tabs 06/16/24 aluminum-mag hydroxide-simethicone 400 mg-400 mg-40 mg/5 mL oral susp (Mag-Al Plus Extra Strength) 30 ml PO Q6H PRN PRN Gastric Burning #0 mL 06/16/24 levofloxacin 500 mg tablet 500 mg PO DAILY #8 tabs 06/16/24 magnesium hydroxide 400 mg/5 mL oral suspension 30 ml PO DAILY PRN PRN Constipation #0 mL 06/16/24 oxycodone 5 mg tablet 5 mg PO Q4H PRN PRN Pain Score 6-10 3 days #14 tabs 06/16/24 tizanidine 2 mg tablet 4 mg (2 x 2 mg) PO TID #0 tabs 06/16/24 Physical Exam Narrative GENERAL: cooperative HEENT: Atraumatic; normocephalic EYES; Anicteric, Normal Conjunctiva NECK; supple, normal thyroid, RESPIRATORY: Diminished to auscultation CARDIOVASCULAR: Regular S1 S2, GI: soft, normoactive bowel sounds, : No Renal angle tenderness; EXTREMITIES: No edema, no clubbing, MUSCULOSKELETAL: no muscle wasting NEURO: Awake; no lateralizing signs. SKIN: No Rash PSYCH; Flat affect Medical Records Data Medical Nutrition Assessment Dietitian: Malnutrition Criteria Met Start: 06/11/24 12:02 Freq: Status: Active Protocol: Document 06/11/24 12:47 SB (Rec: 06/11/24 12:47 SB [id number]) Nutrition Malnutrition Evidence of Yes Malnutrition Exists Malnutrition ( Acute Illness/Injury moderate): Evidenced By Suboptimal Energy Intake (Moderate),Weight Loss ( Moderate) Clinical Problem Acute Disease or Injury Related Malnutrition Etiology moderate related to inadequate oral intake and increased energy expenditure due to metastatic renal cancer Signs/Symptoms as evidenced by PO meeting <50% of estimated nutrition needs x 1 month and 5% unintentional weight loss x 1 month. Status Active Problem Recommendation Dietitian Adjust to liberal regular diet due to malnutrition. Recommendations/ Will order 240ml EPHP with breakfast and dinner, Changes prefers vanilla. Will discontinue 120ml ensure compact TID with medpass due to no longer being available in [facility] formulary. Will monitor weight trends. Weight / BMI Weight Weight: 143.7 kg Body Mass Index (BMI) 46.7 ABG / Lab / Microbiology Data 06/16/24 05:26 06/16/24 05:26 Laboratory: Laboratory Results - last 24 hr 06/16/24 05:26: WBC 10.5, RBC 2.83 L, Hgb 8.1 L, Hct 26.2 L, MCV 92.6, MCH 28.6, MCHC 30.9 L, RDW Std Deviation 59.6 H, RDW Coeff of Abdiel 17.6 H, Plt Count 310, MPV 9.8, Immature Gran % (Auto) 0.800, Neut % (Auto) 73.9 H, Lymph % (Auto) 8.0 L, [place] % (Auto) 15.5 H, Eos % (Auto) 1.6, Baso % (Auto) 0.2, Absolute Neuts (auto) 7.8 H, Absolute Lymphs (auto) 0.84, Nucleated RBC % 0, Differential Comment SCANNED, Diff Path Review May foll, Platelet Estimate ADEQUATE, Anisocytosis 1+, Tear Drop Cells 1+, Crenated Cell 1+, Acanthocytes (Spur) RARE, Schistocytes RARE, PT 31.6 H, INR 3.0, Sodium 139, Potassium 4.6, Chloride 109 H , Carbon Dioxide 20.2 L, Anion Gap 10, BUN 28 H, Creatinine 1.99 H, Estim Creat Clear Calc 48.11 L, Est GFR (MDRD) Non-Af 35 L, BUN/Creatinine Ratio 14.1, G lucose 116 H, Calcium 6.9 L Microbiology: Microbiology 06/10/24 19:42 Urine, Clean Catch Urine Culture - Final ESBL Klebsiella pneumoniae pne 06/10/24 17:10 Mucosa - Nose SARS-CoV-2, Influenza & RSV (PCR) - Final Radiography Diagnostic Testing: Radiology Impression Echocardiogram 06/15/24 09:30 Interpretation Summary Normal LV size. Left ventricular systolic function is normal. The left ventricular ejection fraction is 65 %. The left atrium is mildly enlarged. Contrast injection was performed. Ordering Physician: Noa Leyva Referring Physician: CORNELL FRANK Performed By: Joaquina Sparks RDCS D/C Instructions Discharge Diet: No restrictions Discharge Activity: Return to Normal Activity Call your doctor if you observe: Fever of 101 or Higher, Shortness of breath, Fainting spells and Chest pain DC O2, CPAP, BIPAP Needs Home O2 Discharge instructions: No Meaningful Use Info Meaningful Use Meaningful Use Diagnoses (Choose all that apply): None applicable Ischemic Stroke Statin Dosing Therapy Reference: STATIN DOSE THERAPY REFERENCE: * Patients > 75 years receive moderate or high dose statin therapy. * Patients 75 years or YOUNGER should receive HIGH intensity statin dose unless contraindicated. You will be required to document reason for non-treatment if statin daily dose does not meet guidelines. HIGH DOSE STATIN THERAPY DAILY Atorvastatin > than or = to 40 mg Rosuvastatin > than or = to 20 mg Amlodipine + Atorvastatin > than or = to 2.5/40 mg Ezetimibe + Simvastatin 10/80 mg Simvastatin 80mg Discharge Plan Admission Admit Date/Time: 06/10/24 21:58 Attending Provider: Jake Johnson Primary Care Provider: Cornell Frank Consulting Providers: Jake Rose; Noa Leyva Discharge Orders/Prescriptions Prescriptions: New acetaminophen 500 mg Tablet 1,000 mg PO Q8 Qty: 0 0RF magnesium hydroxide 400 mg/5 mL Suspension 30 ml PO DAILY PRN PRN (Reason: Constipation) Qty: 0 0RF alum-mag hydroxide-simeth [Mag-Al Plus Extra Strength] 400-400-40 mg/5 mL Suspension 30 ml PO Q6H PRN PRN (Reason: Gastric Burning) Qty: 0 0RF oxycodone 5 mg Tablet 5 mg PO Q4H PRN PRN (Reason: Pain Score 6-10) 3 Days Qty: 14 0RF L.acidoph,saliva-B.bif-S.therm 175 mg Capsule 1 cap PO 4X/DAY Qty: 0 0RF tizanidine 2 mg Tablet 4 mg PO TID Qty: 0 0RF levofloxacin 500 mg tablet 500 mg PO DAILY Qty: 8 0RF Continued hydroxychloroquine 200 mg tablet 200 mg PO BID mirtazapine 30 mg tablet,disintegrating 30 mg PO QHS esomeprazole magnesium [Nexium] 20 mg capsule,delayed release(DR/EC) 20 mg PO DAILY multivitamin Tablet 1 tab PO DAILY losartan 50 mg tablet 50 mg PO DAILY citalopram 20 MG tablet 20 mg PO DAILY tamsulosin 0.4 MG capsule 0.4 mg PO QHS isosorbide mononitrate 60 mg tablet extended release 24 hr 60 mg PO BID melatonin 3 mg tablet 3 mg PO QHS PRN (Reason: sleep) metoprolol succinate 50 mg tablet extended release 24 hr 50 mg PO BID warfarin 4 mg tablet 4 mg PO DAILY Protocol: Dose Management Condition: Sunday Dose/Route: 8 mg Instruction: 2 x 4 mg tablets Condition: Sunday Dose/Route: 0 mg Instruction: 0 tablets Condition: Sunday Dose/Route: 8 mg Instruction: 2 x 4 mg tablets Condition: Sunday Dose/Route: 4 mg Instruction: 1 x 4 mg tablet Condition: Dose/Route: 8 mg Instruction: 2 x 4 mg tablets Condition: Sunday Dose/Route: 4 mg Instruction: 1 x 4 mg tablet Condition: Sunday Dose/Route: 8 mg Instruction: 2 x 4 mg tablets Protocol Text: Adjustment Start Date: Sunday05/05/24 INR Value: 4.3 INR Date: 05/05/24 Recheck Date: 05/08/24 Rx Instructions: 4 mg orally 1 tablet on Sunday and Sunday, and 2 tablets (8mg) Sunday through Sunday: OR DIRECTED.; will be stopped one Eliquis is approved or patient assistance clopidogrel 75 mg tablet 75 mg PO DAILY oxybutynin chloride 5 mg tablet 5 mg PO BID atorvastatin 80 mg tablet 80 mg PO QHS Qty: 90 3RF ranolazine 500 mg tablet extended release 12 hr 500 mg PO BID Qty: 180 3RF Discontinued mirtazapine 30 mg tablet 30 mg PO QHS Patient Comments: [NO ORIGINAL SIG] oxycodone 5 mg tablet 5 mg PO Q4H PRN PRN (Reason: pain) Referrals / Follow Up: Cornell Frank MD [Primary Care Provider] - In 1 Day Disposition Disposition (needs filled in before D/C Order can be placed): [facility] Facility Charges/Coding Visit Charges Inpatient E&M: 50034 Disch Hosp >30min
[2024-06-16] MEDS: Tamsulosin HCl 0.4 MG Capsule PO (20:20)
[2024-06-16] MEDS: Atorvastatin Calcium 80 MG Tablet PO (20:20)
[2024-06-16] MEDS: Mirtazapine 30 MG Tablet PO (20:21)
--- NOTE | 2024-06-16 21:21 | NURSING ---
SPOKE TO NURSE IDA AT [facility],NOTIFIED PT JUST LEFT AND HAD HS MEDS & AND OXY 5MG @ 2020, MARS ARE WITH PAPERWORK
== END 2024-06-16 21:18 | disposition skilled nursing facility (03) | DRG 690 ==
LOC: ED 20:38 → MS3 22:25
PROVIDERS: Internal Medicine; Admitting Provider Internal Medicine; Emergency Provider Emergency Medicine; PCP Family Medicine; Visit Provider Internal Medicine
DX: N39.0 Urinary tract infection, site not specified (principal); C79.51 Secondary malignant neoplasm of bone; C64.9 Malignant neoplasm of unspecified kidney, except renal pelvis; Z68.42 Body mass index [BMI] 45.0-49.9, adult; C79.89 Secondary malignant neoplasm of other specified sites; D63.0 Anemia in neoplastic disease; B96.1 Klebsiella pneumoniae [K. pneumoniae] as the cause of diseases classified elsewhere; E66.813 Obesity, class 3; N18.32 Chronic kidney disease, stage 3b; I12.9 Hypertensive chronic kidney disease with stage 1 through stage 4 chronic kidney disease, or unspecified chronic kidney disease; F32.A Depression, unspecified; I48.0 Paroxysmal atrial fibrillation; M84.58XS Pathological fracture in neoplastic disease, other specified site, sequela; E78.00 Pure hypercholesterolemia, unspecified; S20.229A Contusion of unspecified back wall of thorax, initial encounter; I25.10 Atherosclerotic heart disease of native coronary artery without angina pectoris; G47.33 Obstructive sleep apnea (adult) (pediatric); M54.50 Low back pain, unspecified; K21.9 Gastro-esophageal reflux disease without esophagitis; S32.2XXS Fracture of coccyx, sequela; S32.60 Unspecified fracture of ischium; F41.9 Anxiety disorder, unspecified; M10.9 Gout, unspecified; Z95.5 Presence of coronary angioplasty implant and graft; R26.89 Other abnormalities of gait and mobility; R53.1 Weakness; Z87.891 Personal history of nicotine dependence; G89.29 Other chronic pain; R79.1 Abnormal coagulation profile; Z79.891 Long term (current) use of opiate analgesic; N39.490 Overflow incontinence; Z79.2 Long term (current) use of antibiotics; Z79.02 Long term (current) use of antithrombotics/antiplatelets; R53.81 Other malaise; Z79.01 Long term (current) use of anticoagulants; N40.1 Benign prostatic hyperplasia with lower urinary tract symptoms; N13.8 Other obstructive and reflux uropathy; R33.8 Other retention of urine; Z99.89 Dependence on other enabling machines and devices
CPT/HCPCS: 36415; 70450; 71250; 72125; 72128; 72131; 73700; 78452; 80048; 80053; 80076; 81001; 83605; 83735; 84100; 84443; 84484; 85025; 85610; 87077; 87086; 87088; 87186; 87631; 93005; 93017; 93306; 94668; 97116; 97162; 97166; 97530; 97535; 97802; 99285; A9500; Q9957; A4216; C8929; J1940; J2405; J2785

== ENCOUNTER 2024-06-16 22:00 | Emergency (ER) | payer MEDICARE, OTHER, SELFPAY ==
[2024-06-16 22:01] VITALS: BP 82/52; PULSE 49; RESP 18; TEMP 37; O2SAT 96; BMI 46.6
[2024-06-16] MEDS: 0.9% Normal Saline (1000mL) 1,000 ML 999 ML IV (22:40)
--- NOTE | 2024-06-16 22:46 | EDS_ITS ---
HPI History of Present Illness Chief Complaint: Hypotension Narrative Narrative: Patient is a 73-year-old male with a past medical history of ESBL currently on Levaquin, anemia, paroxysmal atrial fibrillation on warfarin, hypertension, chronic kidney disease, anxiety, depression who presents to the emergency department via EMS with a chief complaint of low blood pressure. Patient states that he was just discharged from the hospital today and noted that on his way back to the [facility] EMS checked his blood pressure noted as low therefore they brought him here. Per EMS staff upstairs gave him all his medications right before discharge. Patient himself has no specific complaints at this point time. 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 Wears glasses Ambulates with cane Gout Arthritis Former smoker Pure hypercholesterolemia Paroxysmal atrial fibrillation Polyarthritis Atherosclerotic heart disease of [place] coronary artery without angina pectoris History of left heart catheterization (LHC) (~07/29/19) Atrial fibrillation Essential hypertension CKD (chronic kidney disease), stage III Anxiety and depression Viral syndrome GERD (gastroesophageal reflux disease) Morbid obesity Depression Home Medications ?Medication ?Instructions ?Recorded ?Last Taken ?Type citalopram 20 mg tablet 20 mg PO DAILY MOOD 09/21/14 02/16/23 History tamsulosin 0.4 mg capsule 0.4 mg PO QHS bph 05/18/19 1 04/19/22 History hydroxychloroquine 200 mg tablet 200 mg PO BID arthrit is 04/25/21 01/15/24 History isosorbide mononitrate 60 mg 60 mg PO BID heart 01/15/24 History tablet,extended release 24 hr melatonin 3 mg tablet 3 mg PO QHS PRN sleep 01/15/24 History esomeprazole magnesium 20 mg 20 mg PO DAILY 08/07/23 1 03/16/23 History capsule,delayed release (Nexium) metoprolol succinate 50 mg 50 mg PO BID BLOOD PRESSURE 08/07/23 01/15/24 History tablet,extended release 24 hr mirtazapine 30 mg disintegrating 30 mg PO QHS 08/07/23 01/15/24 History tablet multivitamin 1 tab PO DAILY 08/07/2301/03 History losartan 50 mg tablet 50 mg PO DAILY BP 11/21/23 1 03/16/23 History warfarin 4 mg tablet 4 mg PO DAILY 01/14/2401/09 History atorvastatin 80 mg tablet 80 mg PO QHS CHOLESTEROL #90 tabs 01/24/24 Unknown Rx clopidogrel 75 mg tablet 75 mg PO DAILY 05/09/24 Unkn own History oxybutynin chloride 5 mg tablet 5 mg PO BID 06/10/24 U nknown History ranolazine 500 mg tablet,extended 500 mg PO BID HEART DISEASE #180 06/10/24 Unknown Rx release,12 hr tabs L.acidophil,salivari-Bifido 1 cap PO 4X/DAY #0 caps Unknown Rx bifidum-Strep thermoph 175 mg capsule acetaminophen 500 mg tablet 1,000 mg (2 x 500 mg) PO Q 8 #0 tabs 06/16/24 Unknown Rx aluminum-mag hydroxide-simethicone 30 ml PO Q6H PRN GA N Gastric 06/16/24 Unknown Rx 400 mg-400 mg-40 mg/5 mL oral susp Burning #0 mL (Mag-Al Plus Extra Strength) levofloxacin 500 mg tablet 500 mg PO DAILY #8 tabs Unknown Rx magnesium hydroxide 400 mg/5 mL 30 ml PO DAILY PRN PRN 06/16/24 Unknown Rx oral suspension Constipation #0 mL oxycodone 5 mg tablet 5 mg PO Q4H PRN PRN Pain Sco re 06/16/24 Unknown Rx 6-10 3 days #14 tabs tizanidine 2 mg tablet 4 mg (2 x 2 mg) PO TID #0 ta bs 06/16/24 Unknown Rx Allergy/AdvReac Type Severity Reaction Status Date / Time bee venom protein (honey bee) Allergy Hives Verified 06/16/24 22:05 amlodipine AdvReac Severe severe Verified 06/16/24 22:05 swelling in hands and feet ceftriaxone AdvReac Nausea/Vom/ Verified 06/16/24 22:05 Diarrhea spider venom AdvReac Other Verified 06/16/24 22:05 Family History Father Heart disease Diabetes CAD (coronary artery disease) History of coronary artery bypass surgery Cardiac pacemaker in situ Pure hypercholesterolemia Hypertension Mother Hypertension Surgical History History of back surgery History of esophagogastroduodenoscopy (EGD) History of coronary artery stent placement H/O umbilical hernia repair History of inguinal hernia repair, bilateral History of cystoscopy History of knee surgery History of total right knee replacement Social History household members: spouse housing: senior living Smoking Status: Former smoker how long ago did patient quit smokin alcohol intake: never substance use type: does not use caffeine: Yes Type: tea Number of servings: 2 ROS ROS ED ROS Narrative Constitutional: Denies fevers, chills, headaches Cardiovascular: Denies chest pain or palpitation Respiratory: Denies shortness of breath Abdomen: Denies nausea vomit diarrhea : Denies urinary symptoms Neurological: Denies numbness, weakness, tingling Musculoskeletal: Denies back pain Skin: Denies any rashes or lesions EXAM Physical Exam Narrative Exam Narrative: General: Patient was lying in bed rest comfortably did not appear to be in acute distress Head: Atraumatic, normocephalic Eyes: PERRL bilaterally, EOMI bilateral, no conjunctival injection noted Neck: Soft, supple, trachea midline Cardiovascular: Patient is bradycardic with a regular rhythm no murmurs gallops rubs noted Respiratory: Clear to auscultation bilaterally Abdomen: Soft, nondistended, no tenderness palpation Extremities: +4/5 strength in the bilateral upper and lower extremities Neurological: Patient following commands knew that he was at [facility] 2024 Skin: Warm, dry, intact no rashes or lesions noted Const Vital Signs: 06/16/24 22:01 06/16/24 22:37 06/16/24 23:50 Temperature 98.6 F Temperature Source Oral Pulse Rate 49 L 49 L Respiratory Rate 18 19 H Respiratory Effort Normal Non-Labored Respiratory Pattern Normal Blood Pressure 82/52 L 97/50 L Blood Pressure Mean 62 65 Pulse Ox 96 95 Oxygen Delivery Method Room Air 06/17/24 00:48 06/17/24 00:57 Temperature Temperature Source Pulse Rate 49 L 46 L Respiratory Rate 18 16 Respiratory Effort Respiratory Pattern Blood Pressure 94/41 L 110/60 Blood Pressure Mean 58 76 Pulse Ox 97 97 Oxygen Delivery Method Room Air Room Air MDM MDM MDM Narrative Medical decision making narrative: Patient 73-year-old male who presents to the emergency department via EMS with a chief complaint of bradycardia and hypotension after being discharged from the hospital here earlier this evening. On the differential diagnose includes but not limited to dehydration, bradycardia secondary to him taking his prescribed medications shortly before his arrival here. Once workup is obtained reviewed he will be reevaluated. Patient be given IV fluids as clinically he is dry. Patient's CBC was reviewed showed no evidence of leukocytosis white blood count normal 10.8, hemoglobin is stable at 8.2, platelet count was noted to be 321. Patient's sodium normal at 130, potassium normal 4.5, creatinine was at baseline at 1.94 this was compared to previous blood draws. Patient calcium is low at 6.7 he will be given 2 g calcium gluconate here, total bilirubin normal at 0.45, AST and ALT were 22 and less than 5 respectively. Patient's EKG was reviewed which showed sinus bradycardia with a rate of 50 beats per minutes. This is junctional rhythm however there is areas of artifact noted secondary to his tremor. Patient has a history of bradycardia when comparing to previous EKGs as well as a history of atrial fibrillation therefore he is on Eliquis as noted above. Patient's EKG was repeated and showed sinus bradycardia with a rate of 53 bpm. Patient remains asymptomatic. After liter of fluid patient's blood pressure had improved however he was given another 500 cc bolus and his blood pressure improved to a systolic of 110/60. At this point time patient will be discharged back to his facility in stable condition with instructions to continue take antibiotics as prescribed. He is agreeable this plan all question concerns answered he is discharged in stable condition Lab Data Labs: Laboratory Results - last 24 hr 06/16/24 22:37 WBC 10.8 RBC 2.86 L Hgb 8.2 L Hct 26.4 L MCV 92.3 MCH 28.7 MCHC 31.1 L RDW Std Deviation 59.9 H RDW Coeff of Abdiel 17.6 H Plt Count 321 MPV 10.0 Immature Gran % (Auto) 0.600 Neut % (Auto) 75.6 H Lymph % (Auto) 8.5 L Dade % (Auto) 13.6 H Eos % (Auto) 1.5 Baso % (Auto) 0.2 Absolute Neuts (auto) 8.1 H Absolute Lymphs (auto) 0.92 Nucleated RBC % 0 Sodium 138 Potassium 4.5 Chloride 107 Carbon Dioxide 18.5 L Anion Gap 12 BUN 27 H Creatinine 1.94 H Estim Creat Clear Calc 49.25 L Est GFR (MDRD) Non-Af 36 L BUN/Creatinine Ratio 13.8 Glucose 103 H Calcium 6.7 L Total Bilirubin 0.45 AST 22 ALT < 5 Alkaline Phosphatase 183 H Total Protein 6.5 Albumin 2.9 L Globulin 3.7 Albumin/Globulin Ratio 0.8 L Discharge Plan Triage Chief Complaint: Hypotension ED Provider: Jim Townsend Dx/Rx/DC Orders Clinical Impression: Bradycardia, Hypotension Prescriptions: No Action hydroxychloroquine 200 mg tablet 200 mg PO BID mirtazapine 30 mg tablet,disintegrating 30 mg PO QHS esomeprazole magnesium [Nexium] 20 mg capsule,delayed release(DR/EC) 20 mg PO DAILY multivitamin Tablet 1 tab PO DAILY losartan 50 mg tablet 50 mg PO DAILY citalopram 20 MG tablet 20 mg PO DAILY tamsulosin 0.4 MG capsule 0.4 mg PO QHS isosorbide mononitrate 60 mg tablet extended release 24 hr 60 mg PO BID melatonin 3 mg tablet 3 mg PO QHS PRN (Reason: sleep) metoprolol succinate 50 mg tablet extended release 24 hr 50 mg PO BID warfarin 4 mg tablet 4 mg PO DAILY Protocol: Dose Management Condition: Sunday Dose/Route: 8 mg Instruction: 2 x 4 mg tablets Condition: Sunday Dose/Route: 0 mg Instruction: 0 tablets Condition: Sunday Dose/Route: 8 mg Instruction: 2 x 4 mg tablets Condition: Sunday Dose/Route: 4 mg Instruction: 1 x 4 mg tablet Condition: Dose/Route: 8 mg Instruction: 2 x 4 mg tablets Condition: Sunday Dose/Route: 4 mg Instruction: 1 x 4 mg tablet Condition: Sunday Dose/Route: 8 mg Instruction: 2 x 4 mg tablets Protocol Text: Adjustment Start Date: Sunday05/05/24 INR Value: 4.3 INR Date: 05/05/24 Recheck Date: 05/08/24 Rx Instructions: 4 mg orally 1 tablet on Sunday and Sunday, and 2 tablets (8mg) Sunday through Sunday: OR DIRECTED.; will be stopped one Eliquis is approved or patient assistance clopidogrel 75 mg tablet 75 mg PO DAILY oxybutynin chloride 5 mg tablet 5 mg PO BID acetaminophen 500 mg Tablet 1,000 mg PO Q8 Qty: 0 0RF magnesium hydroxide 400 mg/5 mL Suspension 30 ml PO DAILY PRN PRN (Reason: Constipation) Qty: 0 0RF alum-mag hydroxide-simeth [Mag-Al Plus Extra Strength] 400-400-40 mg/5 mL Suspension 30 ml PO Q6H PRN PRN (Reason: Gastric Burning) Qty: 0 0RF oxycodone 5 mg Tablet 5 mg PO Q4H PRN PRN (Reason: Pain Score 6-10) 3 Days Qty: 14 0RF L.acidoph,saliva-B.bif-S.therm 175 mg Capsule 1 cap PO 4X/DAY Qty: 0 0RF tizanidine 2 mg Tablet 4 mg PO TID Qty: 0 0RF levofloxacin 500 mg tablet 500 mg PO DAILY Qty: 8 0RF atorvastatin 80 mg tablet 80 mg PO QHS Qty: 90 3RF ranolazine 500 mg tablet extended release 12 hr 500 mg PO BID Qty: 180 3RF Primary Care Provider: Cornell Gunter Referrals: Cornell Gunter MD [Primary Care Provider] - Activity Restrictions/Additional Instructions: After IV fluids your blood pressure improved. Your blood work remained stable that was obtained here and compared to previous blood work. Follow-up your doctor in the outpatient setting return with worsening symptoms or concerns. Your calcium was noted to be low you are given 2 g of calcium gluconate here. Print Language: Faro[place] Disposition Disposition: Detention Facility
[2024-06-16 22:49] LABS: Absolute Lymphocyte Count 0.92 X10^3/uL (0.83-4.51); Absolute Neutrophil Count 8.1 X10^3/uL (2.0-7.7); Basophil# 0.02 X10^3/uL; Basophil% 0.2 % (0-1); Eosinophil# 0.16 X10^3/uL; Eosinophils% 1.5 % (0-5); Hematocrit 26.4 % (40-54); Hemoglobin 8.2 g/dL (13.0-16.5); Lymphocyte # 0.92 X10^3/ul (0.83-4.51); Lymphocyte % 8.5 % (19-41); Mean Corp Hgb Conc 31.1 g/dL (32-36); Mean Corpuscular Hgb 28.7 pg (27.0-32.0); Mean Corpuscular Volume 92.3 fL (80-94); Monocyte# 1.47 X10^3/uL; Monocyte% 13.6 % (0-10); NRBC Flagged by Analyzer 0 % (0-5); Neutrophil # 8.13 X10^3/uL (2.7-7.7); Neutrophil % 75.6 % (47-70); Platelet Count 321 K/mm3 (150-450); RBC Distribution Width CV 17.6 % (11.6-14.6); RBC Distribution Width SD 59.9 fl (35.1-43.9); Red Blood Count 2.86 M/mm3 (4.6-6.2); White Blood Count 10.8 K/mm3 (4.4-11.0)
[2024-06-16 23:30] LABS: ALB/GLOB Ratio 0.8 RATIO (0.9-2.4); AST(SGOT) 22 U/L (<=37); Alanine Aminotransfer ALT/SGPT < 5 U/L (<=46); Albumin, Serum 2.9 g/dL (3.4-4.8); Alkaline Phosphatase 183 U/L (40-129); Anion Gap 12 (5-15); BUN 27 mg/dL (4-19); BUN/Creat Ratio 13.8 RATIO (10-20); Calcium,Total 6.7 mg/dL (7.6-11.0); Carbon Dioxide 18.5 mmol/L (21.0-32.0); Chloride 107 mmol/L (98-108); Creatinine, Serum 1.94 mg/dL (0.70-1.20); EST Glomerular Filtration Rate 36 (>60); Estimated Creatinine Clearance 49.25 ml/min (50-250); Globulin 3.7 g/dL (2.2-4.2); Glucose 103 mg/dL (70-99); Potassium 4.5 mmol/L (3.3-5.1); Protein, Total 6.5 g/dL (5.9-8.4); Sodium Level 138 mmol/L (133-145); Total Bilirubin 0.45 mg/dL (0.00-1.30)
[2024-06-16 23:50] VITALS: BP 97/50; PULSE 49; RESP 19; O2SAT 95
[2024-06-17] MEDS: 0.9% Normal Saline (500mL Bag) 500 ML 999 ML IV (00:07)
--- NOTE | 2024-06-17 00:10 | EKG12_ITS ---
Test Reason : DYSRHYTHMIA Blood Pressure : */* mmHG Vent. Rate : 50 BPM Atrial Rate : * BPM P-R Int : * ms QRS Dur : 86 ms QT Int : 536 ms P-R-T Axes : * 31 19 degrees QTcB Int : 488 ms Sinus bradycardia Low voltage QRS Prolonged QT Abnormal ECG Confirmed by Abdi Gasca ([id number]), tape editor SAMIR RAMIREZ ([id number]) on 06/17/2024 11:32:17 AM Referred By: Confirmed By: Abdi Gasca
[2024-06-17 00:48] VITALS: BP 94/41; PULSE 49; RESP 18; O2SAT 97
[2024-06-17 00:57] VITALS: BP 110/60; PULSE 46; RESP 16; O2SAT 97
--- NOTE | 2024-06-17 01:03 | EKG12_ITS ---
Test Reason : DYSRHYTHMIA Blood Pressure : */* mmHG Vent. Rate : 53 BPM Atrial Rate : 53 BPM P-R Int : 186 ms QRS Dur : 86 ms QT Int : 500 ms P-R-T Axes : 83 28 13 degrees QTcB Int : 469 ms Sinus bradycardia Low voltage QRS Borderline ECG Confirmed by Abdi Gasca ([id number]), design editor SAMIR RAMIREZ ([id number]) on 06/17/2024 11:32:27 AM Referred By: TB Confirmed By: Abdi Gasca
[2024-06-17] MEDS: Calcium Gluconate IV 2 GM in 0.9% Normal Saline (100mL Bag) 100 ML IV (01:20)
[2024-06-17 02:00] VITALS: BP 99/42; PULSE 50; RESP 17; O2SAT 96
--- NOTE | 2024-06-17 02:04 | ED.RN ---
REPORT CALLED TO [facility] NURSEIDA.
[2024-06-17 04:00] VITALS: BP 129/50; PULSE 53; RESP 17; O2SAT 96
[2024-06-17 06:00] VITALS: BP 138/58; PULSE 54; RESP 17; O2SAT 96
[2024-06-17 06:39] VITALS: BP 132/64; PULSE 97; RESP 17; TEMP 36.8; O2SAT 97
== END 2024-06-17 06:55 | disposition skilled nursing facility (03) ==
PROVIDERS: Emergency Provider Emergency Medicine; PCP Family Medicine; Visit Provider Emergency Medicine
DX: R00.1 Bradycardia, unspecified (principal); I48.0 Paroxysmal atrial fibrillation; N18.30 Chronic kidney disease, stage 3 unspecified; I95.9 Hypotension, unspecified; E78.00 Pure hypercholesterolemia, unspecified; F41.9 Anxiety disorder, unspecified; I12.9 Hypertensive chronic kidney disease with stage 1 through stage 4 chronic kidney disease, or unspecified chronic kidney disease; I25.10 Atherosclerotic heart disease of native coronary artery without angina pectoris; R25.1 Tremor, unspecified; F32.A Depression, unspecified; Z79.01 Long term (current) use of anticoagulants; Z79.02 Long term (current) use of antithrombotics/antiplatelets; Z79.899 Other long term (current) drug therapy; Z87.891 Personal history of nicotine dependence
CPT/HCPCS: 80053; 85025; 93005; 96361; 96365; 96366; 99284; A4216; J0612